=== PATIENT | male | born 1985 | race Caucasian/White ===

== ENCOUNTER 2020-04-08 09:18 | Inpatient (IN) | payer MEDICAID, SELFPAY ==
[2020-04-08] VITALS (27 sets, daily range): BP systolic 122–166; BP diastolic 54–109; PULSE 66–98; RESP 14–30; TEMP 36.3–37; O2SAT 94–100; BMI 41.0; BMI 40.6
--- NOTE | 2020-04-08 09:38 | RAD_ITS ---
STUDY: X-RAY CHEST REASON FOR EXAM: Male, 34 years old. Palpitations and SOB with exertion x 1.5 weeks -- weakness, feeling unsteady TECHNIQUE: Single AP portable view of the chest. COMPARISON: None. FINDINGS: EKG electrodes are seen. The lungs are clear and expanded. Scattered calcified granulomas. There is no demonstrated pleural abnormality. There is moderate cardiac enlargement. Normal mediastinum and ina. Normal visualized pulmonary arteries. Normal visualized aortic arch and descending thoracic aorta. Normal visualized thoracic spine. Normal visualized ribs, clavicles, and shoulders. Moderate sized hiatal hernia. RAD/Chest 1 View (Portable) IMPRESSION: Cardiomegaly. Hiatal hernia. Electronically Signed: Chase Jenkins, at 10:19 EDT , Service support ,
--- NOTE | 2020-04-08 09:39 | ED.DCSUM_ITS ---
History of Present Illness <Devante Brandon - Last Filed: 04/08/20 10:40> Informant: Patient Onset: Days - 10 days Activity at onset: Exertion, Light Activity, Rest Timing: Continuous Quality: Dyspnea on exertion Current Severity: Moderate Maximum Severity: Severe Worsened by: Exertion Relieved by: Rest Associated Symptoms: Negative for: Bloody Sputum, Chills, Clear sputum, Cough, Ear pain, Fever, Green sputum, Post-nasal drainage, Rhinorrhea, Sore throat, Sweats, White sputum, Yellow sputum Chest Pain: None Narrative: 34-year-old male history of DVT currently on Eliquis and bipolar disorder and sleep apnea presents to the emergency department complaining of dyspnea on exertion for the last 10 days. He has been under a lot of stress at work. He got sent home from work today because he was complaining of having palpitations and feeling short of breath. 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 No leg pain or swelling. He has not missed any days of his anticoagulation. He denies cough or fever. He denies chest pain or hemoptysis. He denies nausea vomiting or diarrhea. Denies abdominal pain or back pain PE Risk Factors: Prior DVT or PE. Negative for: Cancer, OCP + Smoking + > 35, Recent immobilization, Recent surgery, Recent travel Prior similar symptoms: No Recent Illness/Hospitalization: No <Nicho Patel - Last Filed: 04/08/20 11:08> Chief Complaint: Palpitations Past Medical History <Devante Brandon - Last Filed: 04/08/20 10:40> Prior records reviewed: Yes Past Medical History: - - DVT currently on Eliquis bipolar disorder sleep apnea Surgical History: tonsillectomy Lives: With Family Smoking Status: Never smoker Alcohol: None Drugs: None <Nicho Patel - Last Filed: 04/08/20 11:08> - Allergies and Home Meds Allergies/Adverse Reactions: Allergies cinnamon Allergy (Verified 04/08/20 09:20) Anaphylaxis Primary Care Physician: [facility] Doctor,Out of [NON-STAFF] - Review of Systems All systems negative except as indicated General: Denies: Chills, Fever, Sweats Eyes: Denies: Visual changes - bilaterally, Diplopia ENT: Denies: Rhinorrhea, Sore throat Cardiovascular: Reports: Palpitations. Denies: Chest pain Respiratory: Reports: Dyspnea, Dyspnea on exertion. Denies: Cough, Sputum, Orthopnea, Paroxysmal nocturnal dyspnea Gastrointestinal: Denies: Abdominal pain, Nausea, Vomiting, Diarrhea, Melena, Hematochezia Genitourinary: Denies: Dysuria, Hematuria, Frequency Musculoskeletal: Denies: Back pain, Extremity Pain Skin: Denies: Rash, Wounds Neurological: Denies: Headache, Weakness, Numbness <Nicho Patel - Last Filed: 04/08/20 11:08> Physical Exam Vital Signs/Narrative: Vital Signs Temp Pulse Resp BP Pulse Ox 04/08/20 09:34 87 14 150/66 H 100 04/08/20 09:33 97.3 F L 98 17 151/80 H 100 04/08/20 09:21 97.3 F L 98 17 151/80 H 100 <Devante Brandon - Last Filed: 04/08/20 10:40> Vital Signs/Narrative: Vital Signs Temp Pulse Resp BP Pulse Ox 04/08/20 09:34 87 14 150/66 H 100 04/08/20 09:33 97.3 F L 98 17 151/80 H 100 04/08/20 09:21 97.3 F L 98 17 151/80 H 100 Inital Vital Signs reviewed: Yes General: Well nourished, Well developed, No Acute Distress Head: Normocephalic, Atraumatic Eyes: Perrl, EOMI ENT: Moist mucous membranes, No rhinorrhea Neck: Supple, Nontender Cardiovascular: Regular rate, Regular rhythm, No murmurs Respiratory: No distress, CTA bilaterally, Chest nontender Abdomen: Soft, Nontender, Nondistended, Normal bowel sounds Back: Nontender, Normal Inspection Extremities: Nontender, No edema. Negative for: Tenderness, Edema, Calf Tenderness Skin: No rash, Pallor Neurological: Alert, Oriented x3, Cranial nerves II-XII grossly intact, Normal Strength, Normal Sensation Psychological: Normal affect, Normal Mood <Nicho Patel - Last Filed: 04/08/20 11:08> Diagnostic/Tx/Re-eval - Medical Decision Making I supervised the PA and have performed my own pertinent history and physical. Results and treatment plan were discussed. HPI: Patient complains of shortness of breath and palpitations. States that this is been present for 10 days and gradually worsening. He has a history of DVT and is on Eliquis. He denies any nosebleeds or injuries. He has not seen blood in his stools. No black tarry stools. PE: Vitals: Stable. Afebrile. General: Well-nourished and well-developed. Head: Normocephalic atraumatic. Neck: Supple, no lymphadenopathy. No JVD. Nontender. Cardiovascular: Regular rate and rhythm. No murmurs. Respiratory: No respiratory distress. Clear to auscultation bilaterally. Abdominal: Soft, nontender, nondistended, normal bowel sounds. No guarding, rebound, or peritoneal signs. Back: Nontender. Extremities: Nontender, no edema. Skin: Normal color, no rash. Neurologic: Alert and oriented ?3. Cranial nerves II through XII are intact. Normal strength and sensation. Psych: Normal affect. Emergency Department course: Patient's hemoglobin is 3. He was typed and crossed for 2 units of packed red blood cells. Treatment Plan: Patient will be admitted for transfusion and further evaluation and treatment. This note was generated with [employer] dictation software. It may contain incorrect words, spelling, and punctuation that were not noted in review of the chart prior to signing. <Devante Brandon - Last Filed: 04/08/20 10:40> Chest X-Ray - ED: 1 View, Read by ED Physician, Read by Radiologist, No Acute Disease - Rhythm Strip Rhythm Strip: Sinus Rhythm Rate: 90 Ectopy: None - EKG Initial EKG Interpretation: Sinus Rhythm, No Acute Injury Pattern Prior: No Prior - Medical Decision Making Patient's Hemoccult test was negative. At this time vital signs are stable. His heart rate is around 90 bpm and his blood pressures have been rate around 140/70 systolic. Hospitalist was contacted who agreed to admit the patient to the ICU. He is hemodynamically stable <Nicho Patel - Last Filed: 04/08/20 11:08> ED Disposition <Devante Brandon - Last Filed: 04/08/20 10:40> <Nicho Patel - Last Filed: 04/08/20 11:08> - Plan for ED Patient: Disposition: Acute Care [facility] Diagnosis: Acute anemia, Eliquis therapy, History of DVT (deep vein thrombosis) Referrals: [facility] Doctor,Out of [NON-STAFF] -
--- NOTE | 2020-04-08 09:39 | EKG12_ITS ---
Test Reason : CP Blood Pressure : / mmHG Vent. Rate : 067 BPM Atrial Rate : 067 BPM P-R Int : 152 ms QRS Dur : 086 ms QT Int : 404 ms P-R-T Axes : 028 009 044 degrees QTc Int : 426 ms Normal sinus rhythm Normal ECG When compared with ECG of 08-APR-2020 09:42, MANUAL COMPARISON REQUIRED, DATA IS UNCONFIRMED Confirmed by AURORA BOWLING, LISET ([id number]), editor index JACEY GILL ([id number]) on 04/12/2020 12:48:25 PM Referred By: JEMIMA Confirmed By:LISET SIMON MD
--- NOTE | 2020-04-08 09:42 | EKG12_ITS ---
Test Reason : PALP Blood Pressure : / mmHG Vent. Rate : 085 BPM Atrial Rate : 085 BPM P-R Int : 148 ms QRS Dur : 088 ms QT Int : 382 ms P-R-T Axes : 043 010 034 degrees QTc Int : 454 ms Normal sinus rhythm Normal ECG Confirmed by LISET SIMON MD ([id number]), offline editor MICHAEL SPARKS ([id number]) on 04/13/2020 9:34:57 AM Referred By: AP Confirmed By:LISET SIMON MD
[2020-04-08 10:02] LABS: Absolute Lymphocyte Count 1.54 X10^3/uL (0.83-4.51); Absolute Neutrophil Count 3.8 X10^3/uL (2.0-7.7); Basophil# 0.01 X10^3/uL; Basophil% 0.2 % (0-1); Eosinophils% 1.7 % (0-5); Hematocrit 12.7 % (40-54); Hemoglobin 3.2 g/dL (13.0-16.5); Lymphocyte # 1.54 X10^3/ul (4.0); Mean Corp Hgb Conc 25.2 g/dL (32-36); Mean Corpuscular Hgb 18.9 pg (27.0-32.0); Mean Corpuscular Volume 75.1 fL (80-94); Mean Platelet Vol. 11.1 fl (6.2-12.0); Monocyte# 0.48 X10^3/uL; Monocyte% 8.1 % (0-10); NRBC Flagged by Analyzer 0 % (0-5); Neutrophil # 3.76 X10^3/uL (2.7-7.7); Neutrophil % 63.5 % (47-70); POSITIVE COUNT YES; POSITIVE MORPHOLOGY YES; Platelet Count 245 K/mm3 (150-450); RBC Distribution Width CV 20.3 % (11.6-14.6); RBC Distribution Width SD 54.4 fl (35.1-43.9); Red Blood Count 1.69 M/mm3 (4.6-6.2); White Blood Count 5.9 K/mm3 (4.4-11.0)
[2020-04-08 10:11] LABS: Anion Gap 6 (5-15); BUN 22 mg/dL (7-18); BUN/Creat Ratio 13.8 RATIO (10-20); Calcium,Total 9.1 mg/dL (8.5-10.1); Chloride 112 mmol/L (98-107); EST Glomerular Filtration Rate 52 mL/min (>60); Est Glom Filt Rate - Afr Amer 63 mL/min (>60); Estimated Creatinine Clearance 68.63 ml/min; Glucose 125 mg/dL (74-106); Potassium 3.6 mmol/L (3.5-5.1); Sodium Level 143 mmol/L (136-145); Thyroid Stim Hormone (TSH) 1.47 uIU/mL (0.358-3.74)
[2020-04-08 10:53] LABS: Anisocytosis 2+; Hypochromasia 2+; Microcytosis 2+
--- NOTE | 2020-04-08 10:57 | HP.PCM_ITS ---
Problem List (1) Acute anemia Status: Acute (2) History of DVT (deep vein thrombosis) Status: Chronic (3) Bipolar disorder Status: Chronic (4) ADHD Status: Inactive (5) Morbid obesity Status: Chronic (6) Obstructive sleep apnea Status: Chronic History of Present Illness Date of Admission: 04/08/20 Chief Complaint: Dyspnea on exertion for 10 days The patient is a 34 year old M with history of chronic anemia, runs around 7-8 g% about 2 to 3 years ago but never transfused came to ED with complaint of shortness of breath, dyspnea on exertion for 10 days along with feeling unsteady, sometimes dizzy and weakness. Today while at work, he felt dizzy and almost passed out therefore sent to ER. In ED, hemoglobin 3.2 g%. Rectal exam by ER physician was negative and stool for occult blood negative. Patient is on Eliquis, last dose on 04/07 started about 6 months ago for right lower leg DVT. Patient also has about 4 weeks of right medial knee pain started suddenly like a click and it hurts mainly on walking. Currently no pain. 2 units of PRBC transfusion ordered by ER physician. EKG shows normal sinus rhythm with no findings of LVH. Chest x-ray reported as moderate cardiomegaly and hiatus hernia Past Medical History Past Medical History (Chronic Problems): Chronic Problems History of DVT (deep vein thrombosis) (Chronic) Bipolar disorder (Chronic) Morbid obesity (Chronic) Obstructive sleep apnea (Chronic) Allergies cinnamon Allergy (Verified 04/08/20 09:20) Anaphylaxis Home Medications: Ambulatory Orders Medication Instructions Recorded Apixaban [Eliquis] 5 mg PO BID 04/08/20 Diphenhydramine HCl [Diphenhist] 50 mg PO QHS 04/08/20 Fluoxetine HCl [Prozac] 40 mg PO DAILY 04/08/20 Gabapentin [Neurontin] 300 mg PO TID 04/08/20 Oxcarbazepine [Trileptal] 300 mg PO DAILY 04/08/20 Oxcarbazepine [Trileptal] 900 mg PO QHS 04/08/20 Quetiapine Fumarate [Seroquel] 400 mg PO DAILY 04/08/20 Surgical History: tonsillectomy Lives: With Family Smoking Status: Never smoker Alcohol: None Drugs: None - *Family History Paternal History Items: Heart Disease - [place] in fourth or fifth decade Maternal History Items: Heart Disease Review of Systems Constitutional: Denies: Chills, Fever, Weight Change HEENT: Denies: Head Aches, Sinus Congestion, Sinus Drainage Cardiovascular: Reports: Chest Pressure - Chest pressure mainly on walking, midsternal in location with radiation to both clavicles. no chest pain at rest, Heaviness, Light Headedness, Palpitations - On walking, - - Near syncope, dizziness. Did not pass out. Respiratory: Denies: Cough, Shortness of breath at rest, Sputum production Gastrointestinal: Denies: Abdominal Pain, Constipation, Diarrhea, Hematemesis, Hematochezia, Nausea, Melena, Vomiting Genitourinary: Denies: Dysuria Musculoskeletal: Reports: Joint Pain - Right medial side knee pain. Denies: Joint Tenderness Skin: Denies: Rash, Wounds Neurological: Denies: Numbness, Tingling, Focal weakness Psychiatric: Reports: Anxiety, Depression. Denies: Homicidal Ideations, Garza icidal Ideations Hematologic/ Lymphatic: Denies: Easy Bruising, Easy Bleeding VTE Information - Inpt Only VTE Present on Admission: No VTE Mechan Device Prophylaxis: SCD's VTE Pharm Prophylaxis ordered?: No Reason prophylaxis not ordered:: Medical Contraindication - Severe anemia Patient Problems: Active and Suspected Problems Acute anemia (Acute) - Physical Exam Vitals/I&O's: Vital Signs Temp Pulse Resp BP Pulse Ox 98.4 F 80 18 147/73 H 99 04/08/20 10:26 04/08/20 10:26 04/08/20 10:26 04/08/20 10:26 04/08/20 10:26 Oxygen Delivery Method Room Air Weight: 294 lb 5.074 oz Body Mass Index (BMI) 41.0 General: Alert, Oriented x3, Cooperative HEENT: Atraumatic, PERRLA, EOMI, Normocephalic Oral: No Gingival or Mucosal Lesions/ Ulcerations, Dry Mucosa Neck: Supple, No JVD, Negative Carotid Bruits Lungs: Clear to auscultation, No rhonchi, No wheeze, No rales, Diminished - Air entry diminished in bilateral lung bases Cardiovascular: Regular rate, Regular Rhythm, Normal S1, Normal S2, No murmurs Abdomen: Bowel Sounds Present, Soft, Non Tender, Non-Distended, - - : No dysuria or other urinary tract symptoms. No suprapubic or renal angle tenderness. Urine output adequate. Extremities: No edema, Capillary Refill Less than 3 Seconds Skin: No rashes, No breakdown Musculoskeletal: Tenderness - Mild tenderness and medial angle of right knee. Neurological: Cranial nerves II-XII grossly intact, Deep Tendon Reflexes 2+/4 and Symmetrical, Neuro grossly intact, Motor Exam 5/5 strength throughout Psych/Mental Status: Normal Affect, Appropriate Microbiology Past 72 Hours 04/08/20 10:19 Stool Stool Occult Blood (JIMI) - Final Laboratory Results 04/08/20 09:36: WBC 5.9, RBC 1.69 L, Hgb 3.2 L*, Hct 12.7 L, MCV 75.1 L, MCH 18.9 L, MCHC 25.2 L, RDW Std Deviation 54.4 H, RDW Coeff of Michael 20.3 H, Plt Count 245, MPV 11.1, Immature Gran % (Auto) 0.500, Neut % (Auto) 63.5, Lymph % (Auto) 26.0, Kleberg % (Auto) 8.1, Eos % (Auto) 1.7, Baso % (Auto) 0.2, Absolute Neuts (auto) 3.8, Absolute Lymphs (auto) 1.54, Nucleated RBC % 0, Hypochromasia 2+, Anisocytosis 2+, Microcytosis 2+ 04/08/20 09:36: Sodium 143, Potassium 3.6, Chloride 112 H, Carbon Dioxide 25.0, Anion Gap 6, BUN 22 H, Creatinine 1.60 H, Estim Creat Clear Calc 68.63, Est GFR (MDRD) Af Amer 63, Est GFR (MDRD) Non-Af 52 L, BUN/Creatinine Ratio 13.8, Gluco se 125 H, Calcium 9.1, Troponin I < 0.015, TSH 1.47 04/08/20 10:20: Blood Type B POSITIVE, Antibody Screen NEGATIVE, Crossmatch See Detail Assessment/Plan All Active Problems Acute anemia (Acute) The patient is a 34 year old M with history of chronic anemia, runs around 7-8 g% about 2 to 3 years ago is admitted with dyspnea on exertion, dizziness and near syncope generalized weakness with hemoglobin 3.2 in the ICU. 1. Acute on chronic symptomatic microcytic hypochromic anemia most likely from Eliquis: Patient is being admitted in ICU for hemoglobin of 3.2. 2 units of PRBC transfusion today. Posttransfusion H&H. Watch urine output, strict intake and output. Discussed with surgeon Dr. Lucas. As the patient does not have active GI bleed by history and stool for occult blood negative, will need outpatient EGD. Eliquis discontinued. 2. Abnormal kidney function most likely acute kidney injury from severe anemia, prerenal type: PRBC transfusion and IV fluid. Monitor kidney function electrolytes. 3. Right knee pain on medial side: Most likely ligamentous strain happened a bout 1 month ago. On exam, no bony or joint line tenderness and does not seem bony injury. Patient agreed for outpatient follow-up with orthopedics, might need arthroscopy. PT evaluation. 4. Morbid obesity with obstructive sleep apnea: CPAP during naps and at night. 5. Psychiatric history: Bipolar disorder with ADHD during teenage: His psych medications Seroquel, Trileptal and fluoxetine resumed. VTE prophylaxis: Moderate risk secondary to obesity. Pharmacological prophylaxis contraindicated. Bilateral SCDs Inpatient E&M: 31671 Init Hosp L3
[2020-04-08 12:40] LABS: Magnesium 1.8 mg/dL (1.6-2.6)
[2020-04-08] MEDS: Gabapentin 300 MG Capsule PO ×2 (15:40→20:20)
[2020-04-08] MEDS: 0.9% Normal Saline 1,000 ML 50 ML IV (17:23)
[2020-04-08] MEDS: 0.9% Saline Lock 10 ML Syringe IV (17:24)
[2020-04-08] MEDS: Morphine 2 MG/ML Syringe IV (17:24)
[2020-04-08] MEDS: oxyCODONE 5 MG Tablet PO (18:18)
[2020-04-08 18:37] LABS: Hematocrit 18.3 % (40-54)
[2020-04-08 18:38] LABS: Hemoglobin 4.9 g/dL (13.0-16.5)
[2020-04-08] MEDS: QUEtiapine 100 MG Tablet 200 MG PO (20:20)
[2020-04-08] MEDS: OXcarbazepine 300 MG Tablet 900 MG PO (20:55)
[2020-04-08] MEDS: FLUoxetine 20 MG Capsule 40 MG PO (22:07)
[2020-04-08] MEDS: DiphenhydrAMINE 25 MG Capsule 50 MG PO (22:11)
[2020-04-09] VITALS (22 sets, daily range): BP systolic 125–148; BP diastolic 68–109; PULSE 65–85; RESP 14–31; TEMP 36.2–37; O2SAT 93–100
[2020-04-09 05:03] LABS: Absolute Lymphocyte Count 1.09 X10^3/uL (0.83-4.51); Absolute Neutrophil Count 4.2 X10^3/uL (2.0-7.7); Basophil# 0.04 X10^3/uL; Basophil% 0.7 % (0-1); Eosinophil# 0.12 X10^3/uL; Hematocrit 19.4 % (40-54); Lymphocyte # 1.09 X10^3/ul (4.0); Lymphocyte % 18.1 % (19-41); Mean Corp Hgb Conc 28.4 g/dL (32-36); Mean Corpuscular Hgb 22.7 pg (27.0-32.0); Mean Corpuscular Volume 80.2 fL (80-94); Mean Platelet Vol. 11.3 fl (6.2-12.0); Monocyte# 0.55 X10^3/uL; Monocyte% 9.1 % (0-10); NRBC Flagged by Analyzer 0 % (0-5); Neutrophil # 4.21 X10^3/uL (2.7-7.7); Neutrophil % 69.8 % (47-70); POSITIVE COUNT YES; Platelet Count 202 K/mm3 (150-450); RBC Distribution Width CV 19.3 % (11.6-14.6); RBC Distribution Width SD 56.2 fl (35.1-43.9); Red Blood Count 2.42 M/mm3 (4.6-6.2)
[2020-04-09 05:08] LABS: Differential Indicated SCAN CRITERIA MET; Hemoglobin 5.5 g/dL (13.0-16.5)
[2020-04-09 05:26] LABS: Anion Gap 4 (5-15); BUN 15 mg/dL (7-18); BUN/Creat Ratio 14.9 RATIO (10-20); Calcium,Total 7.8 mg/dL (8.5-10.1); Chloride 113 mmol/L (98-107); Creatinine, Serum 1.01 mg/dL (0.70-1.30); EST Glomerular Filtration Rate 89 mL/min (>60); Est Glom Filt Rate - Afr Amer 108 mL/min (>60); Estimated Creatinine Clearance 108.73 ml/min; Glucose 91 mg/dL (74-106); Magnesium 2.1 mg/dL (1.6-2.6); Sodium Level 142 mmol/L (136-145); Thyroid Stim Hormone (TSH) 1.74 uIU/mL (0.358-3.74)
[2020-04-09 06:21] LABS: Differential Comment SCANNED; Hypochromasia 3+; Microcytosis 3+
[2020-04-09] MEDS: Gabapentin 300 MG Capsule PO ×3 (06:21→21:24)
[2020-04-09 06:22] LABS: Schistocytes 1+
[2020-04-09] MEDS: oxyCODONE 5 MG Tablet PO ×3 (06:23→18:52)
[2020-04-09 07:25] LABS: AST(SGOT) 26 U/L (15-37); Alanine Aminotransfer ALT/SGPT 31 U/L (16-61); Albumin, Serum 3.2 g/dL (3.2-5.0); Alkaline Phosphatase 89 U/L (45-117); Bilirubin, Direct 0.17 mg/dL (0.00-0.30); Globulin 3.2 g/dL (2.2-4.2); Protein, Total 6.4 g/dL (6.4-8.2)
--- NOTE | 2020-04-09 07:37 | ECHOCS_ITS ---
Reason For Study: Chest Pain Procedure This was a 2D Doppler, Color Flow transthoracic echocardiogram. Contrast injection was performed. Exam performed portable in ICU/CCU. Left Ventricle Mildly dilated left ventricle. The estimated ejection fraction is 50-55 %. Left ventricular systolic function is lower limits of normal. Stage 2 diastolic dysfunction. Right Ventricle Normal right ventricle. Normal systolic function. Atria The left atrium is mildly enlarged. Normal right atrium. Mitral Valve Trivial mitral valve insufficiency. Tricuspid Valve Mild tricuspid valve insufficiency. Right ventricular systolic pressure estimated to be 40mm mmHg. Mild pulmonary hypertension. Aortic Valve Aortic sclerosis, no stenosis. Pulmonic Valve No pulmonic valve insufficiency. Great Vessels Inferior vena cava collapse with respiration. The inferior vena cava is dilated. Pericardium/Pleural No pericardial effusion. Medication Diluted definity 2ml given slow IV push to enhance endocardial definition. MMode/2D Measurements & Calculations LVIDd: 6.0 cm IVSd: 1.3 cm Ao root diam: 2.9 cm LVIDs: 4.0 cm LVPWd: 1.1 cm RVDd: 5.0 cm FS: 32.9 % LAV(MOD-bp): 99.4 ml LVAd ap4: 46.1 cm2 SV(MOD-sp4): 102.9 ml LAV(MOD-bp) Indexed: 40.0 ml/m2 EDV(MOD-sp4): 200.2 ml LAV(MOD-sp2): 76.1 ml EDV(sp4-el): 213.4 ml LAV(MOD-sp4): 101.5 ml LVAs ap4: 29.6 cm2 ESV(MOD-sp4): 97.3 ml ESV(sp4-el): 100.9 ml EF(MOD-sp4): 51.4 % EF(sp4-el): 52.7 % SV(sp4-el): 112.5 ml LA A4 area: 30.1 cm2 LA dimension(2D): 4.8 cm RA A4 area: 16.8 cm2 Doppler Measurements & Calculations MV E max jorge: 114.7 cm/sec Lat Peak E' Jorge: 6.3 cm/sec Med Peak E' Jorge: 6.3 cm/sec MV A max jorge: 63.0 cm/sec E/E' lat: 18.1 E/E' med: 18.3 MV E/A: 1.8 Ao V2 max: 183.4 cm/sec LV V1 max: 154.6 cm/sec PA V2 max: 124.2 cm/sec Ao max P.5 mmHg LV V1 max P.6 mmHg Ao V2 mean: 135.8 cm/sec Ao mean P.9 mmHg Ao V2 VTI: 35.4 cm TR max jorge: 299.1 cm/sec TR max P.8 mmHg Interpretation Summary Mildly dilated left ventricle. Left ventricular systolic function is lower limits of normal. The left atrium is mildly enlarged. Mild tricuspid valve insufficiency. Right ventricular systolic pressure estimated to be 40mm mmHg. Mild pulmonary hypertension. Inferior vena cava collapse with respiration. The inferior vena cava is dilated The estimated ejection fraction is 50-55 %. Ordering Physician: Wayne Larkin Performed By: Josi Ramesh, SOPHIA, RVT
--- NOTE | 2020-04-09 07:39 | PCM.PN.HOSP ---
Patient Problems: Active and Suspected Problems Acute anemia (Acute) Reason for Visit: Follow-up for severe anemia and chest pressure Objective: Seen and examined. Patient had chest pressure last afternoon, 02/21 location, central feels like a pressure without radiation. No exacerbating or relieving factor. Serial troponins negative. EKG normal sinus rhythm at [address]-T changes suggestive of ischemia. Patient blood pressure is elevated systolic in the 150s. Respiratory rate 27-31. On room air Physical exam General: Alert, Oriented x3, Cooperative HEENT: Atraumatic, PERRLA, EOMI, Normocephalic Oral: No Gingival or Mucosal Lesions/ Ulcerations Neck: Supple, No JVD, Negative Carotid Bruits Lungs: Air entry diminished in bilateral lung bases. Right basal fine rales present. Tachypnea but no hypoxia. Cardiovascular: Regular rate, Regular Rhythm, Normal S1, Normal S2, No murmurs Abdomen: Bowel Sounds Present, Soft, Non Tender, Non-Distended : No renal angle tenderness. No suprapubic tenderness. Extremities: No edema, Capillary Refill Less than 3 Seconds Skin: No rashes, No breakdown Musculoskeletal: No Tenderness to Palpation of Joints or Extremities Neurological: Cranial nerves II-XII grossly intact, Deep Tendon Reflexes 2+/4 and Symmetrical, Neuro grossly intact Psych/Mental Status: Normal Affect, Appropriate. Vitals/I&O's: Vital Signs Temp Pulse Resp BP Pulse Ox 97.2 F L 66 27 H 143/82 H 99 04/09/20 06:30 04/09/20 07:00 04/09/20 07:00 04/09/20 07:00 04/09/20 07:00 Oxygen Delivery Method Room Air Weight: 293 lb 10.491 oz Body Mass Index (BMI) 40.6 Intake and Output for Last 24 Hours 04/07/20 04/08/20 04/09/20 23:59 23:59 23:59 Intake Total 1910 / 1910 655.83 / 655.83 Output Total 1150 / 1150 600 / 600 Balance 760 / 760 55.83 / 55.83 Microbiology Past 72 Hours 04/08/20 10:19 Stool Stool Occult Blood (JIMI) - Final Laboratory Results 04/08/20 09:36: WBC 5.9, RBC 1.69 L, Hgb 3.2 L*, Hct 12.7 L, MCV 75.1 L, MCH 18.9 L, MCHC 25.2 L, RDW Std Deviation 54.4 H, RDW Coeff of Michael 20.3 H, Plt Count 245, MPV 11.1, Immature Gran % (Auto) 0.500, Neut % (Auto) 63.5, Lymph % (Auto) 26.0, Borden % (Auto) 8.1, Eos % (Auto) 1.7, Baso % (Auto) 0.2, Absolute Neuts (auto) 3.8, Absolute Lymphs (auto) 1.54, Nucleated RBC % 0, Hypochromasia 2+, Anisocytosis 2+, Microcytosis 2+ 04/08/20 09:36: Sodium 143, Potassium 3.6, Chloride 112 H, Carbon Dioxide 25.0, Anion Gap 6, BUN 22 H, Creatinine 1.60 H, Estim Creat Clear Calc 68.63, Est GFR (MDRD) Af Amer 63, Est GFR (MDRD) Non-Af 52 L, BUN/Creatinine Ratio 13.8, Glucose 125 H, Calcium 9.1, Troponin I < 0.015, TSH 1.47 04/08/20 09:36: Magnesium 1.8 04/08/20 10:15: Crossmatch See Detail 04/08/20 10:15: Crossmatch See Detail 04/08/20 10:20: Blood Type B POSITIVE, Antibody Screen NEGATIVE, Crossmatch See Detail 04/08/20 13:10: Troponin I < 0.015 04/08/20 15:50: Troponin I < 0.015 04/08/20 18:21: Hgb 4.9 L*, Hct 18.3 L 04/09/20 04:50: WBC 6.0, RBC 2.42 L, Hgb 5.5 L*, Hct 19.4 L, MCV 80.2 D, MCH 22.7 L, MCHC 28.4 L D, RDW Std Deviation 56.2 H, RDW Coeff of Michael 19.3 H, Plt Count 202, MPV 11.3, Immature Gran % (Auto) 0.300, Neut % (Auto) 69.8, Lymph % (Auto) 18.1 L, Borden % (Auto) 9.1, Eos % (Auto) 2.0, Baso % (Auto) 0.7, Absolute Neuts (auto) 4.2, Absolute Lymphs (auto) 1.09, Nucleated RBC % 0, Differential Comment SCANNED, Diff Path Review May foll, Hypochromasia 3+, Microcytosis 3+, Schistocytes 1+ 04/09/20 04:50: Sodium 142, Potassium 4.0, Chloride 113 H, Carbon Dioxide 25.0, Anion Gap 4 L, BUN 15, Creatinine 1.01, Estim Creat Clear Calc 108.73, Est GFR (MDRD) Af Amer 108, Est GFR (MDRD) Non-Af 89, BUN/Creatinine Ratio 14.9, Glucose 91, Calcium 7.8 L, Magnesium 2.1, TSH 1.74 04/09/20 04:50: Total Bilirubin 0.40, Direct Bilirubin 0.17, AST 26, ALT 31, Alkaline Phosphatase 89, Total Protein 6.4, Albumin 3.2, Globulin 3.2 Current Medications Acetaminophen (Tylenol) 650 mg PO Q6H PRN PRN PRN Reason: Pain Score 1-10/Temp > 100.7 F Al Hydroxide/Mg Hydroxide (Mylanta Ii) 30 ml PO Q6H PRN PRN PRN Reason: Gastric Burning Diphenhydramine HCl (Benadryl) 50 mg PO QHS PRN PRN PRN Reason: SLEEP Last Admin: 04/08/20 22:11 Dose: 50 mg Documented by: Fluoxetine HCl (Prozac) 40 mg PO DAILY [facility] Last Admin: 04/08/20 22:07 Dose: 40 mg Documented by: Furosemide (Lasix) 40 mg IV X1 ONE Stop: 04/09/20 07:38 Gabapentin (Neurontin) 300 mg PO TID [facility] Last Admin: 04/09/20 06:21 Dose: 300 mg Documented by: Gabapentin (Neurontin) 300 mg PO BID PRN PRN PRN Reason: mood Sodium Chloride () 500 mls @ 15 mls/hr IV PRN PRN PRN Reason: Blood Transfusion Morphine Sulfate () 2 mg IV Q3H PRN PRN PRN Reason: Pain Score 6-10/10 Last Admin: 04/08/20 17:24 Dose: 2 mg Documented by: Nitroglycerin (Nitrostat) 0.4 mg SUBLINGUAL Q5M PRN PRN Reason: CARDIAC/CHEST PAIN Ondansetron HCl (Zofran) 4 mg IV Q8H PRN PRN PRN Reason: NAUSEA/VOMITING Oxcarbazepine (Trileptal) 300 mg PO DAILY [facility] Oxcarbazepine (Trileptal) 900 mg PO QHS [facility] Last Admin: 04/08/20 20:55 Dose: 900 mg Documented by: Pantoprazole Sodium (Protonix) 40 mg PO DAILY [facility] Prochlorperazine Edisylate (Compazine Iv) 5 mg IV Q4H PRN PRN PRN Reason: Breakthrough Nausea/Vomiting Quetiapine Fumarate (Seroquel) 200 mg PO BID [facility] Last Admin: 04/08/20 20:20 Dose: 200 mg Documented by: Senna/Docusate Sodium (Senokot-S, Gracy-Colace) 2 tablet PO BID PRN PRN Reason: Constipation Sodium Chloride () 10 - 40 ml IV UD PRN PRN Reason: SALINE FLUSH Last Admin: 04/08/20 17:24 Dose: 20 ml Documented by: STROKE Vital Signs/Narrative: Vital Signs Temp Pulse Resp BP BP Pulse Ox 04/09/20 07:00 66 27 H 143/82 H 99 04/09/20 06:30 97.2 F L 73 17 141/97 H 97 04/09/20 06:15 97.1 F L 73 26 H 129/80 H 93 04/09/20 06:00 74 31 H 93 04/09/20 05:00 80 29 H 125/74 H 99 04/09/20 04:00 98.4 F 72 25 H 127/72 H 97 Medical Necessity - Tobacco Use Smoking Status: Current every day smoker Tobacco Use: Cigarettes Assessment/Plan All Active Problems Acute anemia (Acute) The patient is a 34 year old M with history of chronic anemia, runs around 7-8 g% about 2 to 3 years ago is admitted with dyspnea on exertion, dizziness and near syncope generalized weakness with hemoglobin 3.2 in the ICU. 1. Acute on chronic symptomatic microcytic hypochromic anemia most likely from Eliquis: Patient is being admitted in ICU for hemoglobin of 3.2. 2 units of PRBC transfusion today. Posttransfusion H&H. Watch urine output, strict intake and output. Discussed with surgeon Dr. Lucas. As the patient does not have active GI bleed by history and stool for occult blood negative, will need outpatient EGD. Eliquis discontinued. 04/09: Patient had 3 units of PRBC transfusion. 1 more unit is running. Last H&H 5.12/01. Recheck hemoglobin after fourth unit. Check electrolytes with transfusion. TSH normal. Discussed with computer trainer. 2. Atypical chest pressure possible due to fluid congesation: Lasix 40 mg IV 1 dose. Chest x-ray portable ordered. 2D echo ordered. Admitting chest x-ray showed cardiomegaly. Fasting profile ordered 2. Abnormal kidney function most likely acute kidney injury from severe anemia, prerenal type: Kidney dysfunction since KRIS, resolved with PRBC transfusion. BUN/creatinine 15/1.0. Monitor kidney function electrolytes. 3. Right knee pain on medial side: Most likely ligamentous strain happened about 1 month ago. On exam, no bony or joint line tenderness and does not seem bony injury. Patient agreed for outpatient follow-up with orthopedics, might need arthroscopy. PT evaluation. 4. Morbid obesity with obstructive sleep apnea: CPAP during naps and at night. 5. Psychiatric history: Bipolar disorder with ADHD during teenage: His psych medications Seroquel, Trileptal and fluoxetine resumed. VTE prophylaxis: Moderate risk secondary to obesity. Pharmacological prophylaxis contraindicated. Bilateral SCDs Inpatient E&M: 85582 [facility] Hosp L3
--- NOTE | 2020-04-09 08:25 | RAD_ITS ---
STUDY: X-RAY CHEST REASON FOR EXAM: Male, 34 years old. Chest pressure, tachypnea, anemia TECHNIQUE: COMPARISON: None. FINDINGS: Mild hypoventilatory changes in the right lung base. No new infiltrate is seen. Residuals of old granulomatous disease. There is no demonstrated pleural abnormality. The cardiac silhouette remains enlarged. Normal mediastinum and ina. Normal visualized pulmonary arteries. Normal visualized aortic arch and descending thoracic aorta. Normal visualized thoracic spine. Normal visualized ribs, clavicles, and shoulders. There again is hiatal hernia. RAD/Chest 1 View (Portable) IMPRESSION: Enlargement of the cardiac silhouette. No active pulmonary disease. Electronically Signed: Fermin Hidalgo MD at 8:43 EDT Tel , Service support ,
[2020-04-09 08:42] LABS: Cholesterol 107 mg/dL (200); High Density Lipoprotein 22 mg/dL; Triglycerides 79 mg/dL; Very Low Density Lipoprotein 16 mg/dL (5-40)
[2020-04-09] MEDS: 0.9% Saline Lock 10 ML Syringe IV (08:42)
[2020-04-09] MEDS: Furosemide 40 MG/4 ML Vial IV (08:42)
--- NOTE | 2020-04-09 08:53 | NURSING ---
Report called to Dusty LANGFORD RN [id number]
[2020-04-09] MEDS: FLUoxetine 20 MG Capsule 40 MG PO (11:52)
[2020-04-09] MEDS: QUEtiapine 100 MG Tablet 200 MG PO ×2 (11:52→21:24)
[2020-04-09] MEDS: OXcarbazepine 300 MG Tablet PO (11:54)
[2020-04-09] MEDS: Pantoprazole Sodium 40 MG Tablet PO (11:57)
[2020-04-09] MEDS: Ferrous Sulfate 325 MG Tablet PO (12:31)
--- NOTE | 2020-04-09 14:10 | CASEMGMT ---
RN CM RADIOGRAPHER TECHNOLOGIST CM to room to meet with patient for initial transition planning/care coordination assessment. RN MATT introduced self and role at [facility]. Pt voices understanding and consents to assessment at this time. Pt sitting up in bed in no distress at this time. Pt is A/O at this time and answers all questions appropriately. Care providers, pharmacy, and demographics verified/updated at this time. PCP: Dr Barbara Loredo Preferred Pharmacy: [facility] Insurance: [employer] Prescription Benefit: Yes Living Will/HPOA: Pt does not currently have LW/HCPOA and declines info at this time. LNOK: , Kelly Living Arrangements: Lives w/his and 4 children in 2-story home w/2 steps to enter. Independent Transportation: Pt states drives self and states no transportation concerns at this time. DME: States has the following DME: CPAP Pt states no need for further DME at this time. HHC/SNF: No history of either and no needs identified. Pt plans to f/u with Orthopedic doctor for knee pain. State does not want any OP therapy until he sees the doctor. Pt wishes to return home and states has no concerns with going home at time of discharge. CM to follow for any discharge planning/needs. Pt voices no concerns/needs at this time. Advised pt to ask for CM if any questions/concerns/needs arise. Voices understanding. PLAN: Home Eron GREEN RN, CM
[2020-04-09 15:51] LABS: Hematocrit 24.3 % (40-54); Hemoglobin 7.4 g/dL (13.0-16.5)
[2020-04-09] MEDS: OXcarbazepine 300 MG Tablet 900 MG PO (21:27)
[2020-04-10] VITALS (8 sets, daily range): BP systolic 109–144; BP diastolic 57–70; PULSE 65–93; RESP 16–20; TEMP 36.3–36.9; O2SAT 97–99
[2020-04-10] MEDS: Ondansetron 4 MG/2 ML Vial IV (01:17)
[2020-04-10] MEDS: Morphine 2 MG/ML Syringe IV ×2 (01:17→04:18)
[2020-04-10] MEDS: 0.9% Saline Lock 10 ML Syringe IV ×4 (01:21→10:23)
[2020-04-10] MEDS: proCHLORPERazine 10 MG/2 ML Vial 5 MG IV (04:14)
[2020-04-10] MEDS: Gabapentin 300 MG Capsule PO (05:26)
[2020-04-10 06:07] LABS: Absolute Lymphocyte Count 0.58 X10^3/uL (0.83-4.51); Absolute Neutrophil Count 5.3 X10^3/uL (2.0-7.7); Basophil# 0.02 X10^3/uL; Basophil% 0.3 % (0-1); Eosinophil# 0.05 X10^3/uL; Eosinophils% 0.8 % (0-5); Hematocrit 25.7 % (40-54); Hemoglobin 7.4 g/dL (13.0-16.5); Lymphocyte # 0.58 X10^3/ul (4.0); Lymphocyte % 8.9 % (19-41); Mean Corp Hgb Conc 28.8 g/dL (32-36); Mean Corpuscular Hgb 24.3 pg (27.0-32.0); Mean Corpuscular Volume 84.3 fL (80-94); Mean Platelet Vol. 11.1 fl (6.2-12.0); Monocyte# 0.53 X10^3/uL; Monocyte% 8.1 % (0-10); NRBC Flagged by Analyzer 0 % (0-5); POSITIVE DIFFERENTIAL YES; Platelet Count 216 K/mm3 (150-450); RBC Distribution Width CV 18.3 % (11.6-14.6); RBC Distribution Width SD 55.3 fl (35.1-43.9); Red Blood Count 3.05 M/mm3 (4.6-6.2); White Blood Count 6.5 K/mm3 (4.4-11.0)
[2020-04-10 06:09] LABS: Differential Indicated SCAN CRITERIA MET
[2020-04-10 06:30] LABS: Differential Comment SCANNED; Hypochromasia RARE
[2020-04-10 06:44] LABS: Anion Gap 3 (5-15); BUN 14 mg/dL (7-18); BUN/Creat Ratio 12.7 RATIO (10-20); Calcium,Total 8.1 mg/dL (8.5-10.1); Chloride 112 mmol/L (98-107); EST Glomerular Filtration Rate 81 mL/min (>60); Est Glom Filt Rate - Afr Amer 98 mL/min (>60); Estimated Creatinine Clearance 99.83 ml/min; Glucose 122 mg/dL (74-106); Potassium 4.4 mmol/L (3.5-5.1); Sodium Level 140 mmol/L (136-145)
[2020-04-10] MEDS: Sodium Ferric Gluconat 250 MG in 0.9% Normal Saline 250 ML 135 MG IV (10:12)
[2020-04-10] MEDS: FLUoxetine 20 MG Capsule 40 MG PO (10:14)
[2020-04-10] MEDS: QUEtiapine 100 MG Tablet 200 MG PO (10:15)
[2020-04-10] MEDS: Ferrous Sulfate 325 MG Tablet PO (10:15)
[2020-04-10] MEDS: OXcarbazepine 300 MG Tablet PO (10:16)
[2020-04-10] MEDS: Acetaminophen 325 MG Tablet 650 MG PO (10:20)
[2020-04-10] MEDS: Pantoprazole Sodium 40 MG Tablet PO (10:20)
--- NOTE | 2020-04-10 10:22 | PCM.DC ---
- Discharge Diagnoses Current Active Problems: Current Active and Chronic Problems Acute anemia (Acute) History of DVT (deep vein thrombosis) (Chronic) Bipolar disorder (Chronic) Morbid obesity (Chronic) Obstructive sleep apnea (Chronic) You will use the following diet at home:: Regular Discharge Activity: Return to Normal Activity Allergies/Adverse Reactions: Allergies cinnamon Allergy (Verified 04/08/20 09:20) Anaphylaxis Medications to take at Discharge Diphenhydramine HCl [Diphenhist] 50 mg PO QHS 04/08/20 Fluoxetine HCl [Prozac] 40 mg PO DAILY 04/08/20 Gabapentin 300 mg PO BID PRN 04/08/20 Gabapentin [Neurontin] 300 mg PO DAILY 04/08/20 Oxcarbazepine [Trileptal] 300 mg PO DAILY 04/08/20 Oxcarbazepine [Trileptal] 900 mg PO QHS 04/08/20 Quetiapine Fumarate [Seroquel XR] 400 mg PO QHS 04/08/20 Ferrous Sulfate 325 mg PO DAILY@1200 #90 tab 04/10/20 Pantoprazole Sodium [Protonix] 40 mg PO DAILY #30 tab 04/10/20 The following prescriptions were given: Ferrous Sulfate 325 mg PO DAILY@1200 #90 tab Transmission Status: Pending to [facility] Pantoprazole Sodium [Protonix] 40 mg PO DAILY #30 tab Transmission Status: Pending to [facility] Primary Care Physician: [facility] Doctor,Out of [NON-STAFF] - Test Results: Test results from this visit will be discussed in further detail at your follow-up appointment, if applicable. Please Follow Up With: Fernandez Lucas MD When: in 2 weeks for EGD for anemia Please Follow Up With: Janusz Adame MD When: right ligament injury, medial meniscus in 2 weeks
--- NOTE | 2020-04-10 10:24 | DS.PCM_ITS ---
Discharge Date and Diagnosis - Problem List Patient Problems: Active and Suspected Problems Acute anemia (Acute) Date of Admission: 04/08/20 Date of Discharge: 04/10/20 - Primary Discharge Diagnosis Acute Problems: Active Problems Acute anemia (Acute) - Secondary Discharge Diagnosis Chronic Problems: Chronic Problems History of DVT (deep vein thrombosis) (Chronic) Bipolar disorder (Chronic) Morbid obesity (Chronic) Obstructive sleep apnea (Chronic) Hospital Course and Treatment Summary of Care Provided: [] The patient is a 34 year old M with history of chronic anemia, runs around 7-8 g% about 2 to 3 years ago is admitted with dyspnea on exertion, dizziness and near syncope generalized weakness with hemoglobin 3.2 in the ICU. 1. Acute on chronic symptomatic microcytic hypochromic anemia most likely from Eliquis: Patient is being admitted in ICU for hemoglobin of 3.2. The patient was overall transfused 5 units of PRBC and the last H&H 7.4/25.7. Patient was transferred to PCU and hemoglobin for last 2 days are stable. TSH normal. The case was discussed with battery filler and patient was admitted in ICU. Patient was advised to follow with Dr. Lucas for outpatient EGD. Discharged on ferrous sulfate and Protonix. 2. Atypical chest pressure possible due to fluid congesation: Lasix 40 mg IV 1 dose. Admitting chest x-ray showed cardiomegaly. Chest x-ray did not show fluid overload. Fasting profile shows HDL 22 otherwise normal. 2D echo was done as patient was severely anemic and cardiomegaly and reported mildly dilated LV and mild pulmonary hypertension with a stage II diastolic dysfunction suggestive of chronic heart failure with preserved EF?diastolic dysfunction. Therefore, low- dose metoprolol 12.5 mg p.o. twice daily and lisinopril 2.5 mg daily and lisinopril ordered with holding parameters and sent to the patient's pharmacy. Interpretation Summary Mildly dilated left ventricle. Left ventricular systolic function is lower limits of normal. The left atrium is mildly enlarged. Mild tricuspid valve insufficiency. Right ventricular systolic pressure estimated to be 40mm mmHg. Mild pulmonary hypertension. Inferior vena cava collapse with respiration. The inferior vena cava is dilated The estimated ejection fraction is 50-55 %. 2. Abnormal kidney function most likely acute kidney injury from severe anemia, prerenal type: Kidney dysfunction since KRIS, resolved with PRBC transfusion. BUN/creatinine 15/1.0. Monitor kidney function electrolytes. 3. Right knee pain on medial side: Most likely ligamentous strain happened about 1 month ago. On exam, no bony or joint line tenderness and does not seem bony injury. Patient agreed for outpatient follow-up with orthopedics, might need arthroscopy. PT evaluation. 4. Morbid obesity with obstructive sleep apnea: CPAP during naps and at night. 5. Psychiatric history: Bipolar disorder with ADHD during teenage: His psych medications Seroquel, Trileptal and fluoxetine resumed. Patient Problems: Active and Suspected Problems Acute anemia (Acute) Objective: No chest pain or shortness of breath. Patient hemodynamically stable. Blood pressure 125/70. No issues of GI bleed during hospital stay. Physical exam General: Alert, Oriented x3, Cooperative HEENT: Atraumatic, PERRLA, EOMI, Normocephalic Oral: No Gingival or Mucosal Lesions/ Ulcerations Neck: Supple, No JVD, Negative Carotid Bruits Lungs: Air entry diminished in bilateral lung bases. No hypoxia, tachypnea. No crepitation/rhonchi. Cardiovascular: Regular rate, Regular Rhythm, Normal S1, Normal S2, No murmurs Abdomen: Bowel Sounds Present, Soft, Non Tender, Non-Distended : No renal angle tenderness. No suprapubic tenderness. Extremities: No edema, Capillary Refill Less than 3 Seconds Skin: No rashes, No breakdown Musculoskeletal: Chronic mild tenderness since right medial joint line of knee. Neurological: Cranial nerves II-XII grossly intact, Deep Tendon Reflexes 2+/4 and Symmetrical, Neuro grossly intact Psych/Mental Status: Normal Affect, Appropriate. - Physical Exam Vitals/I&O's: Vital Signs Temp Pulse Resp BP Pulse Ox 97.4 F L 69 18 125/70 H 97 04/10/20 05:23 04/10/20 07:35 04/10/20 05:23 04/10/20 05:23 04/10/20 07:42 Oxygen Delivery Method Room Air Weight: 282 lb 10.122 oz Body Mass Index (BMI) 40.6 Intake and Output for Last 24 Hours 04/08/20 04/09/20 04/10/20 23:59 23:59 23:59 Intake Total 1910 / 1910 2785.83 / 2785.83 720 / 720 Output Total 1150 / 1150 600 / 600 0 / 0 Balance 760 / 760 2185.83 / 2185.83 720 / 720 Microbiology Past 72 Hours 04/08/20 10:19 Stool Stool Occult Blood (JIMI) - Final Laboratory Results 04/08/20 10:15: Crossmatch See Detail 04/09/20 15:42: Hgb 7.4 L, Hct 24.3 L 04/10/20 05:45: WBC 6.5, RBC 3.05 L, Hgb 7.4 L, Hct 25.7 L, MCV 84.3 D, MCH 24.3 L, MCHC 28.8 L, RDW Std Deviation 55.3 H, RDW Coeff of Michael 18.3 H, Plt Count 216, MPV 11.1, Immature Gran % (Auto) 0.900, Neut % (Auto) 81.0 H, Lymph % (Auto) 8.9 L, Crawford % (Auto) 8.1, Eos % (Auto) 0.8, Baso % (Auto) 0.3, Absolute Neuts (auto) 5.3, Absolute Lymphs (auto) 0.58 L, Nucleated RBC % 0, Differential Comment SCANNED, Hypochromasia RARE 04/10/20 05:45: Sodium 140, Potassium 4.4, Chloride 112 H, Carbon Dioxide 25.0, Anion Gap 3 L, BUN 14, Creatinine 1.10, Estim Creat Clear Calc 99.83, Est GFR (MDRD) Af Amer 98, Est GFR (MDRD) Non-Af 81, BUN/Creatinine Ratio 12.7, Glucose 122 H, Calcium 8.1 L, Folate 4.60 04/10/20 05:45: Vitamin B12 Pending Current Medications Acetaminophen (Tylenol) 650 mg PO Q6H PRN PRN PRN Reason: Pain Score 1-10/Temp > 100.7 F Last Admin: 04/10/20 10:20 Dose: 650 mg Documented by: Al Hydroxide/Mg Hydroxide (Mylanta Ii) 30 ml PO Q6H PRN PRN PRN Reason: Gastric Burning Diphenhydramine HCl (Benadryl) 50 mg PO QHS PRN PRN PRN Reason: SLEEP Last Admin: 04/08/20 22:11 Dose: 50 mg Documented by: Ferrous Sulfate (Ferrous Sulfate) 325 mg PO DAILY@1200 [facility] Last Admin: 04/10/20 10:15 Dose: 325 mg Documented by: Fluoxetine HCl (Prozac) 40 mg PO DAILY [facility] Last Admin: 04/10/20 10:14 Dose: 40 mg Documented by: Gabapentin (Neurontin) 300 mg PO TID [facility] Last Admin: 04/10/20 05:26 Dose: 300 mg Documented by: Gabapentin (Neurontin) 300 mg PO BID PRN PRN PRN Reason: mood Sodium Chloride () 500 mls @ 15 mls/hr IV PRN PRN PRN Reason: Blood Transfusion Ferric Sodium Gluconate Complex 250 mg/ Sodium Chloride 270 mls @ 135 mls/hr IV X1 ONE Stop: 04/10/20 11:59 Last Admin: 04/10/20 10:12 Dose: 135 mls/hr Documented by: Morphine Sulfate () 2 mg IV Q3H PRN PRN PRN Reason: Pain Score 6-10/10 Last Admin: 04/10/20 04:18 Dose: 2 mg Documented by: Nitroglycerin (Nitrostat) 0.4 mg SUBLINGUAL Q5M PRN PRN Reason: CARDIAC/CHEST PAIN Ondansetron HCl (Zofran) 4 mg IV Q8H PRN PRN PRN Reason: NAUSEA/VOMITING Last Admin: 04/10/20 01:17 Dose: 4 mg Documented by: Oxcarbazepine (Trileptal) 300 mg PO DAILY [facility] Last Admin: 04/10/20 10:16 Dose: 300 mg Documented by: Oxcarbazepine (Trileptal) 900 mg PO QHS [facility] Last Admin: 04/09/20 21:27 Dose: 900 mg Documented by: Oxycodone HCl (Oxyir) 5 mg PO Q4H PRN PRN PRN Reason: Pain Score 4-5/10 Last Admin: 04/09/20 18:52 Dose: 5 mg Documented by: Pantoprazole Sodium (Protonix) 40 mg PO DAILY [facility] Last Admin: 04/10/20 10:20 Dose: 40 mg Documented by: Prochlorperazine Edisylate (Compazine Iv) 5 mg IV Q4H PRN PRN PRN Reason: Breakthrough Nausea/Vomiting Last Admin: 04/10/20 04:14 Dose: 5 mg Documented by: Quetiapine Fumarate (Seroquel) 200 mg PO BID [facility] Last Admin: 04/10/20 10:15 Dose: 200 mg Documented by: Senna/Docusate Sodium (Senokot-S, Gracy-Colace) 2 tablet PO BID PRN PRN Reason: Constipation Sodium Chloride () 10 - 40 ml IV UD PRN PRN Reason: SALINE FLUSH Last Admin: 04/10/20 10:23 Dose: 10 ml Documented by: Discharge Activity: Return to Normal Activity Home Medications: Medications to take at Discharge Diphenhydramine HCl [Diphenhist] 50 mg PO QHS 04/08/20 Fluoxetine HCl [Prozac] 40 mg PO DAILY 04/08/20 Gabapentin 300 mg PO BID PRN 04/08/20 Gabapentin [Neurontin] 300 mg PO DAILY 04/08/20 Oxcarbazepine [Trileptal] 300 mg PO DAILY 04/08/20 Oxcarbazepine [Trileptal] 900 mg PO QHS 04/08/20 Quetiapine Fumarate [Seroquel XR] 400 mg PO QHS 04/08/20 Ferrous Sulfate 325 mg PO DAILY@1200 #90 tab 04/10/20 Pantoprazole Sodium [Protonix] 40 mg PO DAILY #30 tab 04/10/20 Following Prescriptions Were Given to Patient: Ferrous Sulfate 325 mg PO DAILY@1200 #90 tab [facility]: [facility] Pantoprazole Sodium [Protonix] 40 mg PO DAILY #30 tab Transmission Status: Pending to [facility] Primary Care Physician: Amy Doctor,Out of [NON-STAFF] - Please Follow Up With: Fernandez Lucas MD When: in 2 weeks for EGD for anemia Please Follow Up With: Janusz Adame MD When: right ligament injury, medial meniscus in 2 weeks Medical Necessity - Tobacco Use Smoking Status: Current every day smoker Tobacco Use: Cigarettes Meaningful Use Info Meaningful Use Diagnoses (Choose all that apply): None applicable Inpatient E&M: 61676 [facility] Hosp
[2020-04-11 08:42] LABS: Vitamin B12 516 pg/mL (211-911)
[2020-04-11 14:08] LABS: Pathologist Review Reviewed
[2020-04-11 14:12] LABS: Pathologist Review Reviewed
== END 2020-04-10 13:19 | disposition home or self-care (01) | DRG 663 ==
LOC: ED 11:08 → ICU 11:30 → PCU 04-09 19:18
PROVIDERS: Admitting Provider Internal Medicine; Emergency Provider Physician Assistant Medical; Visit Provider Internal Medicine
DX: D50.9 Iron deficiency anemia, unspecified (principal); N17.9 Acute kidney failure, unspecified; Z79.01 Long term (current) use of anticoagulants; Z86.718 Personal history of other venous thrombosis and embolism; I27.20 Pulmonary hypertension, unspecified; I51.7 Cardiomegaly; I51.89 Other ill-defined heart diseases; K44.9 Diaphragmatic hernia without obstruction or gangrene; F31.9 Bipolar disorder, unspecified; G47.33 Obstructive sleep apnea (adult) (pediatric); F90.9 Attention-deficit hyperactivity disorder, unspecified type; E66.01 Morbid (severe) obesity due to excess calories; Z68.41 Body mass index [BMI] 40.0-44.9, adult; Z79.899 Other long term (current) drug therapy; F17.210 Nicotine dependence, cigarettes, uncomplicated
CPT/HCPCS: 36415; 71045; 80048; 80061; 80076; 82274; 82607; 82746; 83735; 84443; 84484; 85014; 85018; 85025; 86850; 86900; 86901; 86920; 86921; 86922; 93005; 93306; 97161; 99251; 99285; 99406; J7030; J7040; J7050; P9016; Q9957; A4216; C8929; G0463; J0610; J1940; J2405; J2916

== ENCOUNTER 2020-07-20 07:38 | Emergency (ER) | payer MEDICAID, SELFPAY ==
[2020-04-08 12:03] VITALS: BMI 40.6
[2020-07-20 07:40] VITALS: BP 140/97; PULSE 69; RESP 20; TEMP 36.4; O2SAT 98; BMI 39.7
--- NOTE | 2020-07-20 07:54 | CT_ITS ---
STUDY: CT ABDOMEN AND PELVIS WITHOUT CONTRAST REASON FOR EXAM: Male, 34 years old. RIGHT SIDED AB PAIN/NAUSEA RADIATION DOSAGE (If Supplied By Facility): CTDIvol = ( 22.79 ) mGy, DLP = ( 1258.47 ) mGycm TECHNIQUE: Transaxial images were obtained from the dome of the diaphragm to the symphysis pubis without oral contrast, and without intravenous contrast. Sagittal and coronal images were reconstructed. Individualized dose optimization techniques were used for this CT. COMPARISON: None. FINDINGS: The visualized lung bases are unremarkable. The visualized portions of the heart are within normal limits. Normal liver. Normal gallbladder and extrahepatic biliary system. Normal spleen. Normal pancreas. There is a 6.1 cm x 6.2 cm rounded soft tissue mass in the left adrenal gland. There is a 4.8 mm calculus in the lower pole calyx of the right kidney. Normal left kidney. There is a moderate hiatal hernia. Normal small intestine. There are multiple colonic diverticula consistent with diverticulosis. The appendix is visualized and appears normal. Normal abdominal aorta. Normal inferior vena cava. Normal retroperitoneum. Diffuse bladder wall thickening although the bladder is not adequately distended. Calcified phleboliths are seen in the pelvis. Small bilateral inguinal hernias containing fat worse on the right side. There are degenerative changes of the visualized lumbar spine. CT/Abdomen/Pelvis without Cont IMPRESSION: 6.1 cm x 6.2 cm rounded soft tissue mass in the left adrenal gland. Sigmoid diverticula. 4.8 mm calculus in the lower pole calyx of the right kidney. Electronically Signed: Chase Jenkins, at 8:56 EST , Service support ,
--- NOTE | 2020-07-20 07:55 | ED.VISSUMM ---
- ER Visit Summary Date of Service: 07/20/20 Chief Complaint: [Abdominal pain] History of Present Illness: The patient is a 34 M [presents to the emergency department complaint of abdominal pain that started around 7 AM this morning. Patient states that he was at work when he started having sudden onset of pain to the right side. Patient states that he has had some nausea with it and rates it currently a 9 out of 10. He describes it as sharp and stabbing. Patient has had kidney stones before but this feels different. Patient denies any fevers or recent illness. Has been eating and drinking normally up to this point. Patient has not had any prior abdominal surgeries. Patient does have history of hypertension. Patient denies any dysuria or hematuria.] Physical Examination: [HEENT-PERRLA, EOMI. Cranial nerves II through XII grossly intact. TMs clear. Mucous membranes moist. No adenopathy. Cardiovascular-regular rate and rhythm without murmur or ectopy Lungs-clear to auscultation, chest wall stable without crepitus or subcu emphysema Abdomen-normoactive bowel sounds, soft. Patient has some tenderness to palpation over the right lower quadrant towards the right flank. Patient has some mild tenderness over the right upper quadrant however negative Smalls sign. There is no rebound, rigidity, or pedal signs. Extremities-intact ?4, normal range of motion, normal pulses, atraumatic] Test Results: [CBC with differential obtained was normal. Chemistries unremarkable. LFTs were normal. Urinalysis was normal. CT scan of the abdomen pelvis without contrast obtained showed a 6.1 cm x 6.2 cm rounded soft tissue mass in the left adrenal gland. Patient also was noted to have evidence of sigmoid diverticula and a 4.8 mm calculus in the lower pole calyx of the right kidney. Patient had a normal appendix.] Emergency Department Course and Treatment: [The line established on arrival. Patient was medicated with Toradol as well as Zofran and morphine and he had good pain relief with that. Case was discussed with general surgeon on-call as patient would like to stay within the [facility] system and I spoke with Dr. Mimi Tavares who would be happy to follow-up on the adrenal mass.] Treatment Plan: [Patient will be referred to Dr. Mimi Tavares for follow-up of the adrenal mass. Patient will be given a prescription for few [place] and Zofran for pain.] Disposition: [Discharged home in stable condition] Impression: [Abdominal pain-etiology uncertain Left adrenal mass] This note was generated with [employer] dictation software. It may contain incorrect words, spelling, and punctuation that were not noted in review of the chart prior to signing ED Disposition - Plan for ED Patient: Referrals: [facility] Doctor,Out of [NON-STAFF] -
[2020-07-20] MEDS: Ketorolac 15 MG/ML Vial IV (08:10)
[2020-07-20] MEDS: Morphine 4 MG/ML Syringe IV (08:10)
[2020-07-20 08:11] LABS: Bacteria 0 SEEN /hpf (None Seen); Mucous, Urine 0 SEEN /hpf (<or=2+); Red Blood Cells-Urine 0 SEEN /hpf (0-5)
[2020-07-20] MEDS: 0.9% Normal Saline 1,000 ML 125 ML IV (08:11)
[2020-07-20] MEDS: Ondansetron 4 MG/2 ML Vial IV (08:11)
[2020-07-20 08:16] LABS: Absolute Lymphocyte Count 1.99 X10^3/uL (0.83-4.51); Absolute Neutrophil Count 4.7 X10^3/uL (2.0-7.7); Basophil# 0.04 X10^3/uL; Basophil% 0.5 % (0-1); Eosinophil# 0.14 X10^3/uL; Eosinophils% 1.8 % (0-5); Hematocrit 37.6 % (40-54); Lymphocyte # 1.99 X10^3/ul (4.0); Lymphocyte % 26.2 % (19-41); Mean Corp Hgb Conc 31.9 g/dL (32-36); Mean Corpuscular Hgb 25.8 pg (27.0-32.0); Mean Corpuscular Volume 80.9 fL (80-94); Monocyte# 0.72 X10^3/uL; Monocyte% 9.5 % (0-10); NRBC Flagged by Analyzer 0 % (0-5); Neutrophil # 4.65 X10^3/uL (2.7-7.7); Neutrophil % 61.3 % (47-70); Platelet Count 293 K/mm3 (150-450); RBC Distribution Width CV 14.2 % (11.6-14.6); RBC Distribution Width SD 41.3 fl (35.1-43.9); Red Blood Count 4.65 M/mm3 (4.6-6.2); White Blood Count 7.6 K/mm3 (4.4-11.0)
[2020-07-20 08:29] LABS: ALB/GLOB Ratio 0.9 RATIO (0.9-2.4); AST(SGOT) 24 U/L (15-37); Alanine Aminotransfer ALT/SGPT 39 U/L (16-61); Albumin, Serum 3.6 g/dL (3.2-5.0); Alkaline Phosphatase 120 U/L (45-117); Anion Gap 6 (5-15); BUN 15 mg/dL (7-18); Calcium,Total 8.8 mg/dL (8.5-10.1); Chloride 110 mmol/L (98-107); Creatinine, Serum 0.94 mg/dL (0.70-1.30); EST Glomerular Filtration Rate 97 mL/min (>60); Est Glom Filt Rate - Afr Amer 117 mL/min (>60); Estimated Creatinine Clearance 116.82 ml/min; Globulin 3.9 g/dL (2.2-4.2); Glucose 85 mg/dL (74-106); Lipase 286 U/L (73-393); Potassium 4.1 mmol/L (3.5-5.1); Protein, Total 7.5 g/dL (6.4-8.2); Sodium Level 142 mmol/L (136-145)
[2020-07-20 08:44] LABS: Color, Urine Yellow (Yellow); Glucose, Dipstick NEGATIVE (Normal); Ketone-Dipstick Negative (Negative); Protein-Dipstick Negative (Negative); Specific Gravity, Urine 1.025 (1.002-1.030); Urine Bilirubin Dipstick Negative (Negative); Urine Clarity Clear (Clear); Urine Urobilinogen Normal (Normal)
[2020-07-20 08:45] LABS: Leukocyte Esterase-Dipstick 25 /ul (Negative); Nitrite-Dipstick Negative (Negative); Occult Blood-Urine Negative /ul (Negative)
[2020-07-20 08:46] LABS: Squamous Epithelial Cells - UA 5-10 SEEN /hpf (0-5); White Blood Cells 0-5 SEEN /hpf (0-5)
--- NOTE | 2020-07-20 09:19 | ED.DEP ---
ED Disposition - Plan for ED Patient: Instructions: ED Unknown Causes of Abdominal ... Prescriptions: Hydrocodone Bitart/Apap 5-325 [[place] 5MG-325MG] 1 tab PO Q4H PRN PRN 2 Days #10 tab PRN Reason: Pain Prescription Printed Hydrocodone Bitart/Apap 5-325 [[place] 5MG-325MG] 1 tab PO Q4H PRN PRN 2 Days #10 tab PRN Reason: Pain Prescription Printed Ondansetron [Zofran Odt] 4 mg PO Q8H PRN PRN #10 tab PRN Reason: Nausea Prescription Printed Referrals: [facility] Doctor,Out of [NON-STAFF] - Mimi Tavares MD [STAFF PHYSICIAN] - 3-5 Days
[2020-07-20 09:38] VITALS: BP 108/77; PULSE 62; RESP 15; O2SAT 99
== END 2020-07-20 09:40 | disposition home or self-care (01) ==
PROVIDERS: Emergency Provider Emergency Medicine
DX: E27.9 Disorder of adrenal gland, unspecified (principal); R10.9 Unspecified abdominal pain; R11.0 Nausea; I10 Essential (primary) hypertension; Z87.442 Personal history of urinary calculi; Z79.899 Other long term (current) drug therapy; Z72.0 Tobacco use
CPT/HCPCS: 74176; 80053; 81001; 83690; 85025; 96361; 96374; 96375; 99283; J7030; J2405

== ENCOUNTER 2020-07-26 09:56 | Emergency (ER) | payer MEDICAID, SELFPAY ==
[2020-07-26 09:58] VITALS: BP 150/84; PULSE 56; RESP 14; TEMP 35.8; O2SAT 99; BMI 17.5
--- NOTE | 2020-07-26 10:11 | CT_ITS ---
STUDY: CT ABDOMEN AND PELVIS WITH CONTRAST REASON FOR EXAM: Male, 34 years old. Right flank pain, known left adrenal mass. Hx hypertension. RADIATION DOSAGE (If Supplied By Facility): CTDIvol = ( 23.75 ) mGy, DLP = ( 1604.21 ) mGycm TECHNIQUE: Transaxial images were obtained from the dome of the diaphragm to the symphysis pubis without oral contrast. 100mL Isovue 300 was administered. Sagittal and coronal images were reconstructed. Individualized dose optimization techniques were used for this CT. COMPARISON: Comparison is made with prior examination dated 07/20/2020. FINDINGS: The visualized lung bases are unremarkable. The visualized portions of the heart are within normal limits. There is decreased attenuation of the liver consistent with steatosis. Normal gallbladder and extrahepatic biliary system. Normal spleen. Normal pancreas. Stable 5.7 cm x 6.2 cm solid mass in the left adrenal gland. Stable 4.8 mm calculus in the lower pole calyx of the right kidney. Normal left kidney. There is a moderate-sized hiatal hernia. Normal small intestine. Normal colon. The appendix is visualized and appears normal. Normal abdominal aorta. Normal inferior vena cava. There is borderline retroperitoneal lymphadenopathy with enlarged nodes no greater than 10mm in the short axis diameter. Normal urinary bladder. Calcified phleboliths. Normal abdominal wall. There are degenerative changes of the visualized lumbar spine. CT/Abdomen/Pelvis W IV Cont ONLY IMPRESSION: Fatty infiltration of the liver. Stable left adrenal mass. Stable 4.8 mm calculus in the lower pole calyx of the right kidney. Electronically Signed: Chase Jenkins, at 11:55 EST , Service support ,
--- NOTE | 2020-07-26 10:11 | ED.VIS.GEN ---
History of Present Illness Chief Complaint: Flank Pain Informant: Patient Narrative: 34-year-old male presenting with right flank pain. Patient was seen last week and had a CT of his abdomen pelvis without contrast which demonstrated a left adrenal mass which he is supposed to follow-up with surgery and a right renal calculus. He states his pain is never gone away. Is been constant. Is now worse and causing increased nausea. States the pain starts in the flank and wraps around. He states it is a sharp pressure and generally aching. He denies any urinary symptoms. Normal bowel movements. No fevers. No prior abdominal surgeries. He has not followed up with anybody from his last ED visit. She notes a history of hypertension, degenerative disc disease, bipolar disorder, remote leg DVT. - Past Medical History (1) Acute anemia Status: Acute (2) Bipolar disorder Status: Chronic (3) History of DVT (deep vein thrombosis) Status: Chronic (4) Morbid obesity Status: Chronic (5) Obstructive sleep apnea Status: Chronic (6) ADHD Status: Inactive Past Medical History - Allergies and Home Meds Allergies/Adverse Reactions: Allergies cinnamon Allergy (Verified 07/26/20 09:57) Anaphylaxis Primary Care Physician: Barbara Loredo [Other] Surgical History: tonsillectomy Smoking Status: Former smoker Drugs: None - Family History Paternal Family History: Reports: Heart Disease - [place] in fourth or fifth decade Maternal Family History: Reports: Heart Disease Review of Systems General: Denies: Chills, Fever, Sweats Eyes: Denies: Visual changes - bilaterally, Diplopia ENT: Denies: Rhinorrhea, Sore throat Cardiovascular: Denies: Chest pain, Palpitations Respiratory: Denies: Dyspnea, Cough, Dyspnea on exertion Gastrointestinal: Reports: Abdominal pain, Nausea. Denies: Vomiting, Diarrhea, Melena, Hematochezia Genitourinary: Denies: Dysuria, Hematuria, Frequency Musculoskeletal: Denies: Back pain, Extremity Pain Skin: Denies: Rash, Wounds Neurological: Denies: Headache, Weakness, Numbness Physical Exam Vital Signs/Narrative: Vital Signs Temp Pulse Resp BP Pulse Ox 07/26/20 09:58 96.4 F L 56 L 14 150/84 H 99 Inital Vital Signs reviewed: Yes General: Well nourished, Well developed, Obese, No Acute Distress Head: Normocephalic, Atraumatic Eyes: Perrl, EOMI ENT: Moist mucous membranes, No rhinorrhea Neck: Supple, Nontender Cardiovascular: Regular rate, Regular rhythm, No murmurs Respiratory: No distress, CTA bilaterally, Chest nontender Abdomen: Soft, Nondistended, Normal bowel sounds, Tender Back: CVA tenderness Extremities: Nontender, No edema Skin: Normal color, No rash Neurological: Alert, Oriented x3, Cranial nerves II-XII grossly intact, Normal Strength, Normal Sensation Psychological: Normal affect, Normal Mood Diagnostic/Tx/Re-eval Clinical Impression(s) from Imaging Studies Abdomen/Pelvis CT 07/26/20 10:11 IMPRESSION: Fatty infiltration of the liver. Stable left adrenal mass. Stable 4.8 mm calculus in the lower pole calyx of the right kidney. Electronically Signed: Chase Jenkins, at 11:55 EST , Service support , Laboratory Last Values WBC 6.1 K/mm3 (4.4-11.0) 07/26/20 10:25 RBC 4.56 M/mm3 (4.6-6.2) L 07/26/20 10:25 Hgb 11.8 g/dL (13.0-16.5) L 07/26/20 10:25 Hct 37.1 % (40-54) L 07/26/20 10:25 MCV 81.4 fL (80-94) 07/26/20 10:25 MCH 25.9 pg (27.0-32.0) L 07/26/20 10:25 MCHC 31.8 g/dL (32-36) L 07/26/20 10:25 RDW Std Deviation 40.7 fl (35.1-43.9) 07/26/20 10:25 RDW Coeff of Michael 13.8 % (11.6-14.6) 07/26/20 10:25 Plt Count 243 K/mm3 (150-450) 07/26/20 10:25 MPV 9.9 fl (6.2-12.0) 07/26/20 10:25 Immature Gran % (Auto) 0.500 % (0.0-0.9) 07/26/20 10:25 Neut % (Auto) 57.8 % (47-70) 07/26/20 10:25 Lymph % (Auto) 30.0 % (19-41) 07/26/20 10:25 [place] % (Auto) 8.7 % (0-10) 07/26/20 10:25 Eos % (Auto) 2.0 % (0-5) 07/26/20 10:25 Baso % (Auto) 1.0 % (0-1) 07/26/20 10:25 Absolute Neuts (auto) 3.5 X10^3/uL (2.0-7.7) 07/26/20 10:25 Absolute Lymphs (auto) 1.83 X10^3/uL (0.83-4.51) 07/26/20 10:25 Nucleated RBC % 0 % (0-5) 07/26/20 10:25 Sodium 142 mmol/L (136-145) 07/26/20 10:25 Potassium 4.0 mmol/L (3.5-5.1) 07/26/20 10:25 Chloride 110 mmol/L (98-107) H 07/26/20 10:25 Carbon Dioxide 28.0 mmol/L (21.0-32.0) 07/26/20 10:25 Anion Gap 4 (5-15) L 07/26/20 10:25 BUN 14 mg/dL (7-18) 07/26/20 10:25 Creatinine 0.90 mg/dL (0.70-1.30) 07/26/20 10:25 Estim Creat Clear Calc 92.36 ml/min 07/26/20 10:25 Est GFR (MDRD) Af Amer 123 mL/min (>60) 07/26/20 10:25 Est GFR (MDRD) Non-Af 102 mL/min (>60) 07/26/20 10:25 BUN/Creatinine Ratio 15.6 RATIO (10-20) 07/26/20 10:25 Glucose 73 mg/dL (74-106) L 07/26/20 10:25 Calcium 8.7 mg/dL (8.5-10.1) 07/26/20 10:25 Total Bilirubin 0.20 mg/dL (0.20-1.00) 07/26/20 10:25 AST 21 U/L (15-37) 07/26/20 10:25 ALT 32 U/L (16-61) 07/26/20 10:25 Alkaline Phosphatase 111 U/L (45-117) 07/26/20 10:25 Total Protein 7.4 g/dL (6.4-8.2) 07/26/20 10:25 Albumin 3.6 g/dL (3.2-5.0) 07/26/20 10:25 Globulin 3.8 g/dL (2.2-4.2) 07/26/20 10:25 Albumin/Globulin Ratio 0.9 RATIO (0.9-2.4) 07/26/20 10:25 Lipase 295 U/L (73-393) 07/26/20 10:25 Urine Color Yellow (Yellow) 07/26/20 10:15 Urine Clarity Clear (Clear) 07/26/20 10:15 Urine pH 5.0 (5.0 - 8.0) 07/26/20 10:15 Ur Specific [place] 1.025 (1.002-1.030) 07/26/20 10:15 Urine Protein 30 mg/dl (Negative) H 07/26/20 10:15 Urine Glucose (UA) Normal mg/dl (Normal) 07/26/20 10:15 Urine Ketones 5 mg/dl (Negative) H 07/26/20 10:15 Urine Occult Blood Negative /ul (Negative) 07/26/20 10:15 Urine Nitrite Negative (Negative) 07/26/20 10:15 Urine Bilirubin Negative mg/dL (Negative) 07/26/20 10:15 Urine Urobilinogen Normal mg/dl (Normal) 07/26/20 10:15 Ur Leukocyte Esterase 25 /ul (Negative) H 07/26/20 10:15 Urine RBC 0 SEEN /hpf (0-5) 07/26/20 10:15 Urine WBC 0-5 SEEN /hpf (0-5) 07/26/20 10:15 Ur Squamous Epith Cells 0-5 SEEN /hpf (0-5) 07/26/20 10:15 Urine Bacteria 1+ /hpf (None Seen) 07/26/20 10:15 Urine Mucus 2+ /hpf (<or=2+) 07/26/20 10:15 - Medical Decision Making IV was established and patient received IV fluids and Toradol. He states the Toradol did nothing for him. His work-up again is essentially unchanged from his visit last week. At this point I do not see an emergent root cause of his pain. Plan will be outpatient follow-up with primary care. Patient to return if worsening or concerns. I can write for some Bentyl and see if that changes his pain. ED Disposition - Plan for ED Patient: Disposition: Home or Assisted Living Diagnosis: Acute abdominal pain Instructions: ED Unknown Causes of Abdominal ... Prescriptions: Dicyclomine HCl [Bentyl] 20 mg PO TIDAC #20 cap Prescription Printed Referrals: Barbara Loredo [Other] - 3-5 Days
[2020-07-26 10:23] LABS: Red Blood Cells-Urine 0 SEEN /hpf (0-5)
[2020-07-26] MEDS: 0.9% Normal Saline 1,000 ML 1000 ML IV (10:26)
[2020-07-26] MEDS: Ketorolac 30 MG/ML Syringe IV (10:26)
[2020-07-26] MEDS: Ondansetron 4 MG/2 ML Vial IV (10:27)
[2020-07-26 10:33] LABS: Color, Urine Yellow (Yellow); Glucose, Dipstick Normal (Normal); Ketone-Dipstick 5 mg/dl (Negative); Leukocyte Esterase-Dipstick 25 /ul (Negative); Nitrite-Dipstick Negative (Negative); Occult Blood-Urine Negative /ul (Negative); Protein-Dipstick 30 mg/dl (Negative); Specific Gravity, Urine 1.025 (1.002-1.030); Urine Bilirubin Dipstick Negative (Negative); Urine Clarity Clear (Clear); Urine Urobilinogen Normal (Normal)
[2020-07-26 10:39] LABS: Absolute Lymphocyte Count 1.83 X10^3/uL (0.83-4.51); Absolute Neutrophil Count 3.5 X10^3/uL (2.0-7.7); Basophil# 0.06 X10^3/uL; Eosinophil# 0.12 X10^3/uL; Hematocrit 37.1 % (40-54); Hemoglobin 11.8 g/dL (13.0-16.5); Lymphocyte # 1.83 X10^3/ul (4.0); Mean Corp Hgb Conc 31.8 g/dL (32-36); Mean Corpuscular Hgb 25.9 pg (27.0-32.0); Mean Corpuscular Volume 81.4 fL (80-94); Mean Platelet Vol. 9.9 fl (6.2-12.0); Monocyte# 0.53 X10^3/uL; Monocyte% 8.7 % (0-10); NRBC Flagged by Analyzer 0 % (0-5); Neutrophil # 3.54 X10^3/uL (2.7-7.7); Neutrophil % 57.8 % (47-70); Platelet Count 243 K/mm3 (150-450); RBC Distribution Width CV 13.8 % (11.6-14.6); RBC Distribution Width SD 40.7 fl (35.1-43.9); Red Blood Count 4.56 M/mm3 (4.6-6.2); White Blood Count 6.1 K/mm3 (4.4-11.0)
[2020-07-26 10:47] LABS: Bacteria 1+ /hpf (None Seen); Mucous, Urine 2+ /hpf (<or=2+); Squamous Epithelial Cells - UA 0-5 SEEN /hpf (0-5); White Blood Cells 0-5 SEEN /hpf (0-5)
[2020-07-26 10:58] LABS: ALB/GLOB Ratio 0.9 RATIO (0.9-2.4); AST(SGOT) 21 U/L (15-37); Alanine Aminotransfer ALT/SGPT 32 U/L (16-61); Albumin, Serum 3.6 g/dL (3.2-5.0); Alkaline Phosphatase 111 U/L (45-117); Anion Gap 4 (5-15); BUN 14 mg/dL (7-18); BUN/Creat Ratio 15.6 RATIO (10-20); Calcium,Total 8.7 mg/dL (8.5-10.1); Chloride 110 mmol/L (98-107); EST Glomerular Filtration Rate 102 mL/min (>60); Est Glom Filt Rate - Afr Amer 123 mL/min (>60); Estimated Creatinine Clearance 92.36 ml/min; Globulin 3.8 g/dL (2.2-4.2); Glucose 73 mg/dL (74-106); Lipase 295 U/L (73-393); Protein, Total 7.4 g/dL (6.4-8.2); Sodium Level 142 mmol/L (136-145)
[2020-07-26 12:00] VITALS: BP 133/83; PULSE 55; RESP 18; O2SAT 100
== END 2020-07-26 12:35 | disposition home or self-care (01) ==
PROVIDERS: Emergency Provider Emergency Medicine
DX: R10.9 Unspecified abdominal pain (principal); E27.9 Disorder of adrenal gland, unspecified; N20.0 Calculus of kidney; I10 Essential (primary) hypertension; D64.9 Anemia, unspecified; F31.9 Bipolar disorder, unspecified; E66.01 Morbid (severe) obesity due to excess calories; G47.33 Obstructive sleep apnea (adult) (pediatric); Z86.718 Personal history of other venous thrombosis and embolism; Z79.899 Other long term (current) drug therapy; Z87.891 Personal history of nicotine dependence
CPT/HCPCS: 74177; 80053; 81001; 83690; 85025; 96361; 96374; 96375; 99285; J7030; Q9967; A4216; J2405

== ENCOUNTER 2020-09-08 22:11 | Emergency (ER) | payer MEDICAID, SELFPAY ==
[2020-09-08 22:11] VITALS: BP 144/88; PULSE 75; RESP 18; TEMP 35.6; O2SAT 98
[2020-09-08 22:12] VITALS: BP 144/88; PULSE 74; RESP 18; TEMP 35.6; O2SAT 98; BMI 41.1
--- NOTE | 2020-09-08 22:30 | ED.DCSUM_ITS ---
History of Present Illness Chief Complaint: Wound Informant: Patient Onset: Today Narrative: 35-year-old male presenting with wound dehiscence on the left abdomen with drainage of serosanguineous fluid. He states this started tonight. He states initially when the fluid started coming out it did soak his shirt and leg however he states that it is slowed down now. He denies any new abdominal pain except for some soreness from the surgery itself. He denies any fever, chills, nausea, vomiting. He states he feels otherwise well. Patient states that his surgeon was Dr. Verdin at [facility]. He states he was diagnosed with renal mass a couple of months ago. He just had surgery on the to remove the adrenal gland on the left. Patient states he was doing fine up until the wound started leaking. He does not have any redness around the wound. Past Medical History - Allergies and Home Meds Allergies/Adverse Reactions: Allergies cinnamon Allergy (Verified 07/26/20 09:57) Anaphylaxis Primary Care Physician: Care Physician,No Primary [Primary Care Provider] - Prior records reviewed: Yes Past Medical History: - - Hypertension, obstructive sleep apnea, bipolar disorder, degenerative disc disease ADHD Surgical History: tonsillectomy Lives: Spouse/ Significant Other Smoking Status: Current every day smoker Alcohol: None Drugs: None - Family History Paternal Family History: Reports: Heart Disease - [place] in fourth or fifth decade Maternal Family History: Reports: Heart Disease Review of Systems General: Denies: Chills, Fever, Sweats Eyes: Denies: Visual changes - bilaterally, Diplopia ENT: Denies: Rhinorrhea, Sore throat Cardiovascular: Denies: Chest pain, Palpitations Gastrointestinal: Denies: Abdominal pain, Nausea, Vomiting, Diarrhea, Melena, Hematochezia Genitourinary: Denies: Dysuria, Hematuria, Frequency Musculoskeletal: Denies: Back pain, Extremity Pain Skin: Reports: Wounds - Wound dehiscence from surgical site with leakage of fluid.. Denies: Rash Neurological: Denies: Headache, Weakness, Numbness Physical Exam Vital Signs/Narrative: Vital Signs Temp Pulse Resp BP Pulse Ox 09/08/20 22:12 96.0 F L 74 18 144/88 H 98 09/08/20 22:11 96.0 F L 75 18 144/88 H 98 Inital Vital Signs reviewed: Yes General: Well nourished, Well developed, No Acute Distress Head: Normocephalic, Atraumatic Eyes: Perrl, EOMI ENT: Moist mucous membranes, No rhinorrhea Neck: Supple, Nontender Cardiovascular: Regular rate, Regular rhythm, No murmurs Respiratory: No distress, CTA bilaterally, Chest nontender Abdomen: Soft, Nontender, Nondistended, Normal bowel sounds Back: Nontender, Normal Inspection Extremities: Nontender, No edema Skin: - - Patient has 3 surgical incision sites the upper 2 surgical sites appear to be healing well. There is no surrounding induration or erythema. The lower surgical site on his left lower quadrant has a slight dehiscence and there is serosanguineous fluid draining. There is no surrounding cellulitis. Neurological: Alert, Oriented x3 Psychological: Normal affect, Normal Mood Diagnostic/Tx/Re-eval Clinical Impression(s) from Imaging Studies Abdomen/Pelvis CT 09/08/20 23:14 IMPRESSION: 1. Stranding and air within the subcutaneous fat of the left lateral lower abdominal wall. No communication with the peritoneal cavity. 2. No evidence of acute intra-abdominal process or major interval change. Electronically Signed: Giorgio Solo DO at 23:51 EST Tel [phone], Service support , Laboratory Data 09/08/20 09/08/20 22:36 22:36 WBC 9.7 RBC 4.54 L Hgb 11.4 L Hct 37.6 L MCV 82.8 MCH 25.1 L MCHC 30.3 L RDW Std Deviation 44.7 H RDW Coeff of Michael 14.8 H Plt Count 332 MPV 9.6 Immature Gran % (Auto) 0.500 Neut % (Auto) 56.9 Lymph % (Auto) 31.0 [place] % (Auto) 9.2 Eos % (Auto) 1.8 Baso % (Auto) 0.6 Absolute Neuts (auto) 5.5 Absolute Lymphs (auto) 3.02 Nucleated RBC % 0 Sodium 142 Potassium 3.9 Chloride 111 H Carbon Dioxide 25.0 Anion Gap 6 BUN 14 Creatinine 1.05 Estim Creat Clear Calc 103.59 Est GFR (MDRD) Af Amer 103 Est GFR (MDRD) Non-Af 85 BUN/Creatinine Ratio 13.3 Glucose 127 H Calcium 8.9 Total Bilirubin 0.20 AST 15 ALT 29 Alkaline Phosphatase 115 Total Protein 7.4 Albumin 3.4 Globulin 4.0 Albumin/Globulin Ratio 0.8 L - Medical Decision Making 5-year-old male presenting with leakage from his abdominal incision site. There appears to be scant drainage at this time although he states that there was a large amount of fluid earlier. This does appear to be there is sanguinous and is mostly clear. Is not purulent. He does not have any cellulitis around his site. He states he has been doing well since his surgery on the . CBC shows a blood cell count of 9.7, hemoglobin 11.4, platelets 332. Renal function and electrolytes are normal. LFTs are normal. I did discuss the case with Dr. Verdin who stated his lungs there is not a large fluid collection on his CT and there is no signs of a fascial injury patient can be put in a dressing and he will reach out to him tomorrow to set up a new office visit earlier than the third. Previous lab work was reviewed patient previously had hemoglobin of 10.5 at [facility] and is now higher. There is no change in his electrolytes and renal function. Patient had CT of the abdomen pelvis which shows some stranding in the area where he had surgery however there does not appear to be any cellulitic change and he does not have a white blood cell count. His drainage is serosanguineous and not purulent. I do not believe he needs antibiotics. Specifically the area of inflammation does not track into the intra-abdominal area. Patient was counseled that his surgeon would be reaching out to him to set up an earlier appointment in the third. I also counseled him that if did not call sometime in the morning to reach out to them and set up an earlier appointment. He acknowledged understanding. Given return precautions. Patient placed in a dressing and given extra supplies to take care of himself at home until he can get more. Patient stable discharge. Impression: 1. Postop wound check 2. Partial wound dehiscence ED Disposition - Plan for ED Patient: Disposition: Home or Assisted Living Instructions: ED Post Op Wound Check, General Referrals: Care Physician,No Primary [Primary Care Provider] -
[2020-09-08 22:45] LABS: Absolute Lymphocyte Count 3.02 X10^3/uL (0.83-4.51); Absolute Neutrophil Count 5.5 X10^3/uL (2.0-7.7); Basophil# 0.06 X10^3/uL; Basophil% 0.6 % (0-1); Eosinophil# 0.18 X10^3/uL; Eosinophils% 1.8 % (0-5); Hematocrit 37.6 % (40-54); Hemoglobin 11.4 g/dL (13.0-16.5); Lymphocyte # 3.02 X10^3/ul (4.0); Mean Corp Hgb Conc 30.3 g/dL (32-36); Mean Corpuscular Hgb 25.1 pg (27.0-32.0); Mean Corpuscular Volume 82.8 fL (80-94); Mean Platelet Vol. 9.6 fl (6.2-12.0); Monocyte% 9.2 % (0-10); NRBC Flagged by Analyzer 0 % (0-5); Neutrophil # 5.52 X10^3/uL (2.7-7.7); Neutrophil % 56.9 % (47-70); Platelet Count 332 K/mm3 (150-450); RBC Distribution Width CV 14.8 % (11.6-14.6); RBC Distribution Width SD 44.7 fl (35.1-43.9); Red Blood Count 4.54 M/mm3 (4.6-6.2); White Blood Count 9.7 K/mm3 (4.4-11.0)
[2020-09-08 23:02] LABS: ALB/GLOB Ratio 0.8 RATIO (0.9-2.4); AST(SGOT) 15 U/L (15-37); Alanine Aminotransfer ALT/SGPT 29 U/L (16-61); Albumin, Serum 3.4 g/dL (3.2-5.0); Alkaline Phosphatase 115 U/L (45-117); Anion Gap 6 (5-15); BUN 14 mg/dL (7-18); BUN/Creat Ratio 13.3 RATIO (10-20); Calcium,Total 8.9 mg/dL (8.5-10.1); Chloride 111 mmol/L (98-107); Creatinine, Serum 1.05 mg/dL (0.70-1.30); EST Glomerular Filtration Rate 85 mL/min (>60); Est Glom Filt Rate - Afr Amer 103 mL/min (>60); Estimated Creatinine Clearance 103.59 ml/min; Glucose 127 mg/dL (74-106); Potassium 3.9 mmol/L (3.5-5.1); Protein, Total 7.4 g/dL (6.4-8.2); Sodium Level 142 mmol/L (136-145)
--- NOTE | 2020-09-08 23:14 | CT_ITS ---
STUDY: CT ABDOMEN AND PELVIS WITH CONTRAST REASON FOR EXAM: Male, 35 years old. Left abdominal drainage RADIATION DOSAGE (If Supplied By Facility): CTDIvol = ( 22.06 ) mGy, DLP = ( 1392.88 ) mGycm TECHNIQUE: Transaxial images were obtained from the dome of the diaphragm to the symphysis pubis without oral contrast. IV 100mL Isovue-370 was administered. Sagittal and coronal images were reconstructed. Individualized dose optimization techniques were used for this CT. COMPARISON: 07/26/2020. FINDINGS: The visualized lung bases are unremarkable. The visualized portions of the heart are within normal limits. Normal liver. Normal gallbladder and extrahepatic biliary system. Normal spleen. Normal pancreas. A normal right adrenal gland. Left adrenal gland is not clearly visualized. Stable calcification lower pole. Otherwise normal right kidney. Normal left kidney. Normal visualized ureters. There is a hiatal hernia the gastric fundus. The distal stomach lies below the diaphragm and appears normal. Normal small intestine. Normal colon. The appendix is visualized and appears normal. Normal abdominal aorta. Normal inferior vena cava. Normal retroperitoneum. Normal urinary bladder. Normal prostate. There are phleboliths in the pelvis without lymphadenopathy. No free air or free fluid is seen within the abdominal cavity. There is stranding in the subcutaneous fat of the left upper abdomen. Air is also contained within the lateral facet is not entirely included on the exam. There is no fluid collection. The degree of stranding and subcutaneous air is increased since the prior study. There are no osseous changes. CT/Abdomen/Pelvis W IV Cont ONLY IMPRESSION: 1. Stranding and air within the subcutaneous fat of the left lateral lower abdominal wall. No communication with the peritoneal cavity. 2. No evidence of acute intra-abdominal process or major interval change. Electronically Signed: Giorgio Solo DO at 23:51 EST Tel [phone], Service support ,
== END 2020-09-09 00:09 | disposition home or self-care (01) ==
PROVIDERS: Emergency Provider Student in an Organized Health Care Education/Training Program
DX: T81.30XA Disruption of wound, unspecified, initial encounter (principal); I10 Essential (primary) hypertension; G47.33 Obstructive sleep apnea (adult) (pediatric); F31.9 Bipolar disorder, unspecified; F90.9 Attention-deficit hyperactivity disorder, unspecified type; Z79.899 Other long term (current) drug therapy; F17.200 Nicotine dependence, unspecified, uncomplicated
CPT/HCPCS: 74177; 80053; 85025; 99282; Q9967

== ENCOUNTER 2020-10-10 19:22 | Emergency (ER) | payer MEDICAID, SELFPAY ==
[2020-10-10 19:23] VITALS: BP 136/72; PULSE 123; RESP 18; TEMP 36.4; O2SAT 98; BMI 40.3
--- NOTE | 2020-10-10 19:58 | CT_ITS ---
STUDY: CT ABDOMEN AND PELVIS WITH CONTRAST REASON FOR EXAM: Male, 35 years old. abd pain RADIATION DOSAGE (If Supplied By Facility): CTDIvol = ( 17.08 ) mGy, DLP = ( 1379.28 ) mGycm TECHNIQUE: Transaxial images were obtained from the dome of the diaphragm to the symphysis pubis without oral contrast. IV 100mL Isovue-300 was administered. Sagittal and coronal images were reconstructed. Individualized dose optimization techniques were used for this CT. COMPARISON: CT of abdomen and pelvis dated September 08, 2020 FINDINGS: The visualized lung bases are unremarkable. Normal liver. No intrahepatic biliary duct dilatation or liver mass. Normal gallbladder and extrahepatic biliary system. Normal spleen. Normal pancreas. Normal right adrenal gland. Prior right adrenalectomy. Normal right kidney. Normal left kidney. No hydronephrosis or renal masses. No large stones. There is a small hiatal hernia. Normal small intestine. Mild inflammatory hazy edema is present around the cecum/ascending colon compatible with mild colitis. No acute diverticulitis. No free air or free fluid. Similar findings are seen in the mid descending colonic region. There are multiple colonic diverticula consistent with diverticulosis. No bowel dilatation or obstruction. No free air or free fluid. The appendix is visualized and appears normal. Normal abdominal aorta. Normal inferior vena cava. Normal retroperitoneum. Normal urinary bladder. Normal abdominal wall. Tiny left fat-containing inguinal hernia. Normal osseous structures. CT/Abdomen/Pelvis W IV Cont ONLY IMPRESSION: Mild colitis. 1. Mild inflammatory hazy edema is present around the cecum/ascending colon compatible with mild colitis. No acute diverticulitis. No free air or free fluid. Similar findings are seen in the mid descending colonic region. Electronically Signed: Mk Christianson MD at 21:50 EDT , Service support ,
--- NOTE | 2020-10-10 19:59 | ED.VISSUMM ---
- ER Visit Summary Date of Service: 10/10/20 Chief Complaint: Abdominal pain History of Present Illness: The patient is a 35 M Struve hypertension, kidney stone and anemia. In August he had a left adrenal mass resection which was benign. States that on Saturday he started having diffuse abdominal pain with cramping. Nausea vomiting and copious liquid diarrhea. Fevers as high as 102. He denies any melena. He denies any dysuria. He is never had any abdominal surgery other than the recent adrenal resection. Physical Examination: 35-year-old male no acute distress vital signs stable afebrile. HEENT exam unremarkable. Moist with members. Neck nontender no lymphadenopathy. Lungs clear to auscultation bilaterally. Heart regular rhythm rate about 110 no murmur. Abdomen soft. Nondistended normal bowel sounds. Mildly diffusely tender. No peritoneal signs. No hernia or mass. No signs of obstruction. Both the right upper and right lower quadrants are unremarkable. The pain appears to be the midline in periumbilical. Moving all 4 extremities. No edema. Back nontender. Neurologically is awake and alert with no focal motor deficits. Test Results: CBC shows a white count of 7 hemoglobin 12. No bands. Chemistries unremarkable gap of 4 creatinine 1.28. Liver enzymes normal. Lipase normal of 234. UA negative except for ketones. No infection. CAT scan of the abdomen pelvis done with IV contrast shows cecum and ascending colon with mild colitis. No free air. No acute diverticulitis. No fluid. Also seen on the descending colon. Status post right adrenalectomy. The appendix appears normal. This is read by the radiologist and reviewed by me. Emergency Department Course and Treatment: 35-year-old male with abdominal pain. Treated with IV fluids, Dilaudid and Zofran. CT and labs being obtained. Repeat exam at 10:19 PM patient is doing well. Abdomen is benign. He had I went over his test results. Treatment Plan: Fluids and rest. Imodium for the diarrhea. Tylenol and Motrin for pain. Follow-up with his primary care physician. Return if feeling worse. Disposition: Discharge Impression: Acute abdominal pain secondary to colitis Diarrhea Status post right adrenal resection This note was generated with [employer] software. It may contain incorrect words, spelling, and punctuation that were not noted in review of the chart prior to signing ED Disposition - Plan for ED Patient: Referrals: Care Physician,No Primary [Primary Care Provider] -
[2020-10-10] MEDS: HYDROmorphone 1 MG/ML Syringe IV (20:29)
[2020-10-10] MEDS: 0.9% Normal Saline 1,000 ML 1000 ML IV (20:29)
[2020-10-10] MEDS: Ondansetron 4 MG/2 ML Vial IV (20:29)
[2020-10-10 20:46] LABS: Absolute Lymphocyte Count 1.29 X10^3/uL (0.83-4.51); Absolute Neutrophil Count 4.8 X10^3/uL (2.0-7.7); Basophil# 0.07 X10^3/uL; Basophil% 0.9 % (0-1); Eosinophil# 0.19 X10^3/uL; Eosinophils% 2.5 % (0-5); Hematocrit 42.2 % (40-54); Hemoglobin 12.8 g/dL (13.0-16.5); Lymphocyte # 1.29 X10^3/ul (4.0); Mean Corp Hgb Conc 30.3 g/dL (32-36); Mean Corpuscular Hgb 24.7 pg (27.0-32.0); Mean Corpuscular Volume 81.3 fL (80-94); Mean Platelet Vol. 10.4 fl (6.2-12.0); Monocyte# 1.18 X10^3/uL; Monocyte% 15.5 % (0-10); NRBC Flagged by Analyzer 0 % (0-5); Neutrophil # 4.84 X10^3/uL (2.7-7.7); Neutrophil % 63.7 % (47-70); Platelet Count 302 K/mm3 (150-450); RBC Distribution Width CV 14.6 % (11.6-14.6); RBC Distribution Width SD 42.4 fl (35.1-43.9); Red Blood Count 5.19 M/mm3 (4.6-6.2); White Blood Count 7.6 K/mm3 (4.4-11.0)
[2020-10-10 21:03] LABS: ALB/GLOB Ratio 0.7 RATIO (0.9-2.4); AST(SGOT) 32 U/L (15-37); Alanine Aminotransfer ALT/SGPT 52 U/L (16-61); Albumin, Serum 3.4 g/dL (3.2-5.0); Alkaline Phosphatase 111 U/L (45-117); Anion Gap 4 (5-15); BUN 13 mg/dL (7-18); BUN/Creat Ratio 10.2 RATIO (10-20); Calcium,Total 9.9 mg/dL (8.5-10.1); Chloride 110 mmol/L (98-107); Creatinine, Serum 1.28 mg/dL (0.70-1.30); EST Glomerular Filtration Rate 68 mL/min (>60); Est Glom Filt Rate - Afr Amer 82 mL/min (>60); Estimated Creatinine Clearance 84.97 ml/min; Globulin 4.6 g/dL (2.2-4.2); Glucose 109 mg/dL (74-106); Lipase 234 U/L (73-393); Potassium 4.3 mmol/L (3.5-5.1); Sodium Level 140 mmol/L (136-145)
[2020-10-10 21:13] LABS: Bacteria 0 SEEN /hpf (None Seen); Mucous, Urine 0 SEEN /hpf (<or=2+); Red Blood Cells-Urine 0 SEEN /hpf (0-5)
[2020-10-10 21:22] LABS: Color, Urine Yellow (Yellow); Glucose, Dipstick Normal (Normal); Ketone-Dipstick 5 mg/dl (Negative); Leukocyte Esterase-Dipstick 25 /ul (Negative); Nitrite-Dipstick Negative (Negative); Occult Blood-Urine 10 /ul (Negative); Protein-Dipstick 100 mg/dl (Negative); Specific Gravity, Urine 1.025 (1.002-1.030); Urine Bilirubin Dipstick Negative (Negative); Urine Clarity Clear (Clear); Urine Urobilinogen Normal (Normal)
[2020-10-10 21:34] LABS: Calcium Oxalate Crystals Ur RARE /hpf (<or=2+); Squamous Epithelial Cells - UA 0-5 SEEN /hpf (0-5); White Blood Cells 0-5 SEEN /hpf (0-5)
--- NOTE | 2020-10-10 22:24 | ED.DEP ---
ED Disposition - Plan for ED Patient: Disposition: Home or Assisted Living Instructions: ED Unknown Causes of Abdominal ... Referrals: Care Physician,No Primary [Primary Care Provider] - 3-5 Days if not improving Additional Instructions: Plenty of fluids and rest to prevent dehydration. Imodium as needed for the diarrhea. Tylenol and Motrin for pain. Follow-up with your doctor if not improving. Your labs and CAT scan tonight were basically unremarkable. There was some mild inflammation of your colon secondary to all the diarrhea.
== END 2020-10-10 22:32 | disposition home or self-care (01) ==
PROVIDERS: Emergency Provider Emergency Medicine
DX: K52.9 Noninfective gastroenteritis and colitis, unspecified (principal); Z98.890 Other specified postprocedural states; I10 Essential (primary) hypertension; D64.9 Anemia, unspecified; Z87.442 Personal history of urinary calculi; Z79.899 Other long term (current) drug therapy; F17.200 Nicotine dependence, unspecified, uncomplicated
CPT/HCPCS: 74177; 80053; 81001; 83690; 85025; 96361; 96374; 96375; 99284; J7030; Q9967; A4216; J2405

== ENCOUNTER 2020-10-12 07:14 | Emergency (ER) | payer MEDICAID, SELFPAY ==
[2020-10-12 07:15] VITALS: BP 146/72; PULSE 69; RESP 18; TEMP 36.6; O2SAT 98; BMI 40.4
[2020-10-12 08:30] VITALS: BP 146/72; PULSE 69; RESP 18; TEMP 36.6; O2SAT 98
[2020-10-12 08:38] LABS: Absolute Lymphocyte Count 1.41 X10^3/uL (0.83-4.51); Absolute Neutrophil Count 2.9 X10^3/uL (2.0-7.7); Basophil# 0.04 X10^3/uL; Basophil% 0.7 % (0-1); Eosinophil# 0.16 X10^3/uL; Eosinophils% 2.9 % (0-5); Hematocrit 35.3 % (40-54); Hemoglobin 10.9 g/dL (13.0-16.5); Lymphocyte # 1.41 X10^3/ul (4.0); Lymphocyte % 25.6 % (19-41); Mean Corp Hgb Conc 30.9 g/dL (32-36); Mean Corpuscular Hgb 24.7 pg (27.0-32.0); Mean Platelet Vol. 10.7 fl (6.2-12.0); Monocyte# 0.89 X10^3/uL; Monocyte% 16.2 % (0-10); NRBC Flagged by Analyzer 0 % (0-5); Neutrophil # 2.89 X10^3/uL (2.7-7.7); Neutrophil % 52.6 % (47-70); Platelet Count 277 K/mm3 (150-450); RBC Distribution Width CV 14.5 % (11.6-14.6); RBC Distribution Width SD 41.9 fl (35.1-43.9); Red Blood Count 4.41 M/mm3 (4.6-6.2); White Blood Count 5.5 K/mm3 (4.4-11.0)
[2020-10-12] MEDS: 0.9% Normal Saline 1,000 ML 1000 ML IV (08:41)
[2020-10-12] MEDS: Ketorolac 15 MG/ML Vial IV (08:41)
[2020-10-12] MEDS: Ondansetron 4 MG/2 ML Vial IV (08:41)
[2020-10-12 08:58] LABS: ALB/GLOB Ratio 0.8 RATIO (0.9-2.4); AST(SGOT) 55 U/L (15-37); Alanine Aminotransfer ALT/SGPT 50 U/L (16-61); Albumin, Serum 3.1 g/dL (3.2-5.0); Alkaline Phosphatase 93 U/L (45-117); Anion Gap 3 (5-15); BUN 15 mg/dL (7-18); BUN/Creat Ratio 13.4 RATIO (10-20); Calcium,Total 8.6 mg/dL (8.5-10.1); Chloride 111 mmol/L (98-107); Creatinine, Serum 1.12 mg/dL (0.70-1.30); EST Glomerular Filtration Rate 79 mL/min (>60); Est Glom Filt Rate - Afr Amer 95 mL/min (>60); Estimated Creatinine Clearance 97.11 ml/min; Globulin 3.8 g/dL (2.2-4.2); Glucose 90 mg/dL (74-106); Lipase 194 U/L (73-393); Potassium 5.1 mmol/L (3.5-5.1); Protein, Total 6.9 g/dL (6.4-8.2); Sodium Level 138 mmol/L (136-145)
[2020-10-12 11:00] VITALS: BP 133/71; PULSE 70; PULSE 78; RESP 20; TEMP 36.6; O2SAT 98
--- NOTE | 2020-10-12 11:08 | ED.RN ---
THIS RN ASSUMES CARE
--- NOTE | 2020-10-12 11:23 | ED.DCSUM_ITS ---
- ER Visit Summary Date of Service: 10/12/20 Chief Complaint: Abdominal pain and diarrhea History of Present Illness: The patient is a [address] Loredo at [facility]. He reports she has diarrhea that began 5 days ago. Reports that it was occurring approximate 20 times per day until yesterday and has had 2 episodes since. He relates this to eating a large amount of cheese. She states that it did not seem to be responsive to Imodium. Patient complains of a sharp, cramping abdominal pain is 910 worst and 6 out of 10 currently. Is worsened by having a bowel movement. Is relieved by nothing. He reports he has been nauseated and vomited twice. There is been no blood in his emesis. Has had dry heaves this morning. Reports that 5 days ago he had a fever to 102 degrees. He has not had a fever since. Physical Examination: Vitals: Stable. Afebrile. General: Well-nourished and well-developed. Head: Normocephalic atraumatic. Neck: Supple, no lymphadenopathy. No JVD. Nontender. Cardiovascular: Regular rate and rhythm. No murmurs. Respiratory: No respiratory distress. Clear to auscultation bilaterally. Abdominal: Soft, mild diffuse tenderness to palpation, nondistended, normal bowel sounds. No guarding, rebound, or peritoneal signs. Back: Nontender. Extremities: Nontender, no edema. Skin: Normal color, no rash. Neurologic: Alert and oriented ?3. Cranial nerves II through XII are intact. Normal strength and sensation. Psych: Normal affect. Test Results: CBC shows an H&H 10.9 35.3, monocytes of 16, intragranulocytes of 2.0%. Chem-7 shows a chloride of 111. LFTs show an AST of 55. Lipase is normal. Stool for C. difficile is negative. Enteric pathogens does show Campylobacter. Emergency Department Course and Treatment: Patient had an IV placed. He was given a liter normal saline. Is given Toradol and Zofran IV. He has had no vomiting while here. I had prolonged discussion with him about the results of the enteric pathogens. We discussed that this should be self-limited. However, if he has had symptoms for more than a week that we could do antibiotics. He does want to be placed on antibiotics. This was reviewed on up-to-date. He was given Zithromax p.o. Treatment Plan: Patient will be discharged on 2 more days of Zithromax. Given Zofran for his nausea. Instructed to follow-up his primary care physician in 3 to 5 days if not improving. Return to the emergency department for any worsening symptoms. Disposition: To home in improved and stable condition. Impression: 1. Diarrhea due to Campylobacter. This note was generated with [employer] dictation software. It may contain incorrect words, spelling, and punctuation that were not noted in review of the chart prior to signing ED Disposition - Plan for ED Patient: Instructions: ED Diarrhea, Bacterial (Adult) Prescriptions: Azithromycin [Zithromax] 500 mg PO DAILY #2 tablet Ondansetron [Zofran Odt] 4 mg PO Q8H PRN PRN #10 tablet PRN Reason: Nausea Referrals: Mansfield Beers,Barbara [Other] - 3-5 Days if not improving
[2020-10-12 12:26] VITALS: BP 113/79; PULSE 66; RESP 16; O2SAT 99
[2020-10-12] MEDS: Azithromycin 250 MG Tablet 500 MG PO (12:26)
== END 2020-10-12 12:28 | disposition home or self-care (01) ==
LOC: ED 07:52
PROVIDERS: Emergency Provider Emergency Medicine
DX: A04.5 Campylobacter enteritis (principal); G47.33 Obstructive sleep apnea (adult) (pediatric); F31.81 Bipolar II disorder; Z79.899 Other long term (current) drug therapy; F17.200 Nicotine dependence, unspecified, uncomplicated
CPT/HCPCS: 80053; 83690; 85025; 87493; 87506; 96361; 96374; 96375; 99284; J7030; A4216; J2405

== ENCOUNTER 2020-11-25 07:24 | Observation (INO) | payer MEDICAID, SELFPAY ==
[2020-11-25] VITALS (10 sets, daily range): BP systolic 109–140; BP diastolic 54–80; PULSE 44–63; RESP 16–18; TEMP 36.1–36.9; O2SAT 95–100; BMI 41.5; BMI 41.2
--- NOTE | 2020-11-25 07:38 | RAD_ITS ---
STUDY: X-RAY CHEST REASON FOR EXAM: Male, 35 years old. Chest pain TECHNIQUE: Single AP portable view of the chest. COMPARISON: Comparison is made with prior study dated 04/09/2020. FINDINGS: EKG electrodes are seen. The lungs are clear and expanded. There is no demonstrated pleural abnormality. There is borderline cardiomegaly. Normal mediastinum and ina. Normal visualized pulmonary arteries. Normal visualized aortic arch and descending thoracic aorta. Normal visualized thoracic spine. Normal visualized ribs, clavicles, and shoulders. Large hiatal hernia. RAD/Chest 1 View (Portable) IMPRESSION: Large hiatal hernia. The lungs are clear. Electronically Signed: Chase Jenkins MD at 8:25 EDT , Service support ,
--- NOTE | 2020-11-25 07:38 | EKG12_ITS ---
Test Reason : CP Blood Pressure : / mmHG Vent. Rate : 057 BPM Atrial Rate : 057 BPM P-R Int : 174 ms QRS Dur : 090 ms QT Int : 404 ms P-R-T Axes : 031 014 048 degrees QTc Int : 393 ms Sinus bradycardia Otherwise normal ECG Confirmed by AURORA BOWLING, LISET ([id number]), acquisition editor JACEY GILL ([id number]) on 11/29/2020 9:35:09 AM Referred By: SUSAN Confirmed By:LISET SIMON MD
--- NOTE | 2020-11-25 07:39 | ED.VIS.CHEST ---
HPI History of Present Illness Chief Complaint: Chest Pain Informant: patient Onset/Context/Timing Onset: Today Activity at onset: gradual Timing: Continuous Quality: Positive for Heaviness Current Severity: Moderate Maximum Severity: Moderate Narrative Narrative: Patient present secondary to chest pain. He states he was at work this morning around 6 AM when he developed chest heaviness. Pain did radiate down into his left arm. He also complains of shortness of breath and some lightheadedness. 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 He had been on Eliquis until approximately 1 year ago when he was found to have hemoglobin of 3. He has been off anticoagulants since that time. Patient does report family history of heart disease in multiple family members. [facility] Medical History ADHD Bipolar disorder History of DVT (deep vein thrombosis) Obstructive sleep apnea Home Medications Quetiapine Fumarate [Seroquel Xr] 400 mg PO QHS 04/08/20 [History Last Taken 04/07/20] fluoxetine 40 mg PO QHS 04/08/20 [History Last Taken 04/07/20] gabapentin 300 mg PO BID PRN 04/08/20 [History Last Taken Unknown] gabapentin 300 mg PO QHS 04/08/20 [History Last Taken 04/07/20] oxcarbazepine 300 mg PO DAILY 04/08/20 [History Last Taken 04/07/20] oxcarbazepine 900 mg PO QHS 04/08/20 [History Last Taken 04/07/20] lisinopril 2.5 mg PO DAILY #30 tab 04/10/20 [Rx Last Taken Unknown] metoprolol tartrate 12 mg PO BID #60 tab 04/10/20 [Rx Last Taken Unknown] pantoprazole 40 mg PO DAILY #30 tab 04/10/20 [Rx Last Taken Unknown] azithromycin 500 mg PO DAILY #2 tablet 10/12/20 [Rx Last Taken Unknown] ondansetron 4 mg PO Q8H PRN PRN #10 tablet 10/12/20 [Rx Last Taken Unknown] Allergy/AdvReac Type Severity Reaction Status Date / Time cinnamon Allergy Anaphylaxis Verified 10/12/20 07:18 codeine Allergy PT UNSURE Verified 11/25/20 07:25 OF REACTION Social History Smoking Status: Current every day smoker ROS ROS ED Constitutional Constitutional ED: Denies chills or fever(s) Eyes Eyes: Denies change in vision ENT ENT ED: Denies sore throat Cardiovascular Cardiovascular: Reports chest pain Respiratory/Chest Respiratory/Chest: Reports dyspnea; Denies cough Gastrointestinal Gastrointestinal: Denies abdominal pain, diarrhea, nausea or vomiting Genitourinary Genitourinary ED: Denies dysuria Musculoskeletal Musculoskeletal: Denies back pain Integumentary Denies rash Neurologic Neurologic: Denies headache(s) or weakness Psychiatric Psychiatric: Denies anxiety or depression Endocrine Endocrinology: Denies polydipsia or polyuria Allergic/Immunologic Allergic/Immunologic ED: Denies urticaria EXAM Physical Exam Const Vital Signs: 11/25/20 07:25 11/25/20 07:49 11/25/20 07:50 Temperature 97.0 F L Temperature Source Temporal Pulse Rate 61 Respiratory Rate 18 Respiratory Effort Normal Non-Labored Blood Pressure 140/80 H Blood Pressure Mean 100 Pulse Ox 99 98 Oxygen Delivery Method Room Air Room Air 11/25/20 08:58 Temperature Temperature Source Pulse Rate 47 L Respiratory Rate 18 Respiratory Effort Blood Pressure 110/67 Blood Pressure Mean 81 Pulse Ox 95 Oxygen Delivery Method Room Air Positive well nourished and well developed General Appearance ED: well developed HEENT Reports normocephalic and head/scalp atraumatic Eyes PERRL and EOMs intact bilaterally Neck supple Chest Wall inspection of chest normal Chest Narrative: Mild anterior chest wall tenderness. No crepitus. Resp normal respiratory effort and clear to auscultation bilaterally Cardio regular rate and regular rhythm GI normal to inspection, nondistended, normoactive bowel sounds Palpation: soft Back/Spine no CVA tenderness Extremity normal to inspection Neuro oriented x3 and no sensory deficits noted Sensorium / Orientation: alert Motor Exam: strength 5/5 throughout Psych mental status grossly normal Skin no rashes or lesions noted Heart Score History: Moderately Suspicious ECG: Normal Age: </= 45 years Risk Factors: No Risk Factors Troponin: </= Normal Limit Score: 1 MDM MDM MDM Narrative Medical decision making narrative: Patient given aspirin on arrival along with morphine and Zofran. Blood pressure was only 110 so I did not give nitroglycerin. Lab Data Attestation: I reviewed the patient's lab results. Labs: Laboratory Results - last 24 hr 11/25/20 11/25/20 11/25/20 07:36 07:36 07:36 WBC 8.0 RBC 4.74 Hgb 11.0 L Hct 36.9 L MCV 77.8 L MCH 23.2 L MCHC 29.8 L RDW Std Deviation 42.1 RDW Coeff of Michael 14.9 H Plt Count 245 MPV 11.1 Immature Gran % (Auto) 0.400 Neut % (Auto) 67.3 Lymph % (Auto) 22.8 Russell % (Auto) 7.4 Eos % (Auto) 1.6 Baso % (Auto) 0.5 Absolute Neuts (auto) 5.4 Absolute Lymphs (auto) 1.81 Nucleated RBC % 0 D-Dimer Quant (PE/DVT) Cancelled Sodium Cancelled Potassium Cancelled Chloride Cancelled Carbon Dioxide Cancelled Anion Gap Cancelled BUN Cancelled Creatinine Cancelled Estim Creat Clear Calc Cancelled Est GFR (MDRD) Af Amer Cancelled Est GFR (MDRD) Non-Af Cancelled BUN/Creatinine Ratio Cancelled Glucose Cancelled Calcium Cancelled Troponin I Cancelled 11/25/20 11/25/20 08:25 08:25 WBC RBC Hgb Hct MCV MCH MCHC RDW Std Deviation RDW Coeff of Michael Plt Count MPV Immature Gran % (Auto) Neut % (Auto) Lymph % (Auto) Russell % (Auto) Eos % (Auto) Baso % (Auto) Absolute Neuts (auto) Absolute Lymphs (auto) Nucleated RBC % D-Dimer Quant (PE/DVT) 0.42 Sodium 142 Potassium 4.3 Chloride 112 H Carbon Dioxide 29.0 Anion Gap 1 L BUN 16 Creatinine 1.02 Estim Creat Clear Calc 106.63 Est GFR (MDRD) Af Amer 106 Est GFR (MDRD) Non-Af 88 BUN/Creatinine Ratio 15.7 Glucose 123 H Calcium 8.3 L Troponin I < 0.015 Radiography Chest X-Ray - ED: 1 View, Read by ED Physician, Normal, Heart, Lungs and Mediastinum Diagnostic Testing: Radiology Impression Chest X-Ray 11/25/20 07:38 IMPRESSION: Large hiatal hernia. The lungs are clear. Electronically Signed: Chase Jenkins MD at 8:25 EDT , Service support , EKG Initial EKG: Interpretation: Sinus Bradycardia (Sinus bradycardia at 57. No acute ST change.) Treatment and Re-Evaluation Comments:: Patient was given aspirin and morphine on arrival. On repeat evaluation patient is resting. He states his pain is significantly improved but not completely resolved. Heart rate has been in the mid to low 40s with sinus bradycardia. Patient does have strong family history and a concerning story. I did recommend observation for cycling of cardiac enzymes and possible stress test. While he did have an echocardiogram on his last admission it does not appear that he has had a stress test or a heart cath. I will speak with the hospitalist. Discharge Plan Triage Chief Complaint: Chest Pain ED Provider: Rachael Ha Dx/Rx/DC Orders Clinical Impression: Chest pain Prescriptions: No Action oxcarbazepine 300 MG tablet 300 mg PO DAILY RF: 0 oxcarbazepine 300 MG tablet 900 mg PO QHS RF: 0 gabapentin 300 MG capsule 300 mg PO QHS RF: 0 fluoxetine 20 MG capsule 40 mg PO QHS RF: 0 gabapentin 300 MG capsule 300 mg PO BID PRN (Reason: mood) RF: 0 Quetiapine Fumarate [Seroquel Xr] 400 MG Tab.Sr.24h 400 mg PO QHS RF: 0 pantoprazole 40 MG tablet 40 mg PO DAILY Qty: 30 RF: 0 lisinopril 2.5 MG tablet 2.5 mg PO DAILY Qty: 30 RF: 0 metoprolol tartrate 25 MG tablet 12 mg PO BID Qty: 60 RF: 0 ondansetron 4 MG tablet 4 mg PO Q8H PRN PRN (Reason: Nausea) Qty: 10 RF: 0 azithromycin 500 MG tablet 500 mg PO DAILY Qty: 2 RF: 0 Referrals: GILMER PEÑALOZA [Other] Disposition Disposition: Acute Care Hospital [facility]
[2020-11-25] MEDS: 0.9% Normal Saline 1,000 ML 150 ML IV ×3 (07:46→23:53)
[2020-11-25] MEDS: Aspirin 81 MG TAB.CHEW 324 MG PO (07:46)
[2020-11-25] MEDS: Ondansetron 4 MG/2 ML Vial IV (07:47)
[2020-11-25] MEDS: Morphine 4 MG/ML Syringe IV (07:47)
[2020-11-25 07:52] LABS: Absolute Lymphocyte Count 1.81 X10^3/uL (0.83-4.51); Absolute Neutrophil Count 5.4 X10^3/uL (2.0-7.7); Basophil# 0.04 X10^3/uL; Basophil% 0.5 % (0-1); Eosinophil# 0.13 X10^3/uL; Eosinophils% 1.6 % (0-5); Hematocrit 36.9 % (40-54); Lymphocyte # 1.81 X10^3/ul (0.83-4.51); Lymphocyte % 22.8 % (19-41); Mean Corp Hgb Conc 29.8 g/dL (32-36); Mean Corpuscular Hgb 23.2 pg (27.0-32.0); Mean Corpuscular Volume 77.8 fL (80-94); Mean Platelet Vol. 11.1 fl (6.2-12.0); Monocyte# 0.59 X10^3/uL; Monocyte% 7.4 % (0-10); NRBC Flagged by Analyzer 0 % (0-5); Neutrophil # 5.35 X10^3/uL (2.7-7.7); Neutrophil % 67.3 % (47-70); Platelet Count 245 K/mm3 (150-450); RBC Distribution Width CV 14.9 % (11.6-14.6); RBC Distribution Width SD 42.1 fl (35.1-43.9); Red Blood Count 4.74 M/mm3 (4.6-6.2)
[2020-11-25 08:56] LABS: Anion Gap 1 (5-15); BUN 16 mg/dL (7-18); BUN/Creat Ratio 15.7 RATIO (10-20); Calcium,Total 8.3 mg/dL (8.5-10.1); Chloride 112 mmol/L (98-107); Creatinine, Serum 1.02 mg/dL (0.70-1.30); EST Glomerular Filtration Rate 88 mL/min (>60); Est Glom Filt Rate - Afr Amer 106 mL/min (>60); Estimated Creatinine Clearance 106.63 ml/min; Glucose 123 mg/dL (74-106); Potassium 4.3 mmol/L (3.5-5.1); Sodium Level 142 mmol/L (136-145)
[2020-11-25 09:07] LABS: D-Dimer Quantitative (DVT/PE) 0.42 FEU/ug/m (0.27-0.49)
--- NOTE | 2020-11-25 09:37 | EKG12_ITS ---
Test Reason : REPEAT FOR CP ADMIT Blood Pressure : / mmHG Vent. Rate : 052 BPM Atrial Rate : 052 BPM P-R Int : 180 ms QRS Dur : 090 ms QT Int : 446 ms P-R-T Axes : 019 013 040 degrees QTc Int : 414 ms Sinus bradycardia Otherwise normal ECG Confirmed by AURORA BOWLING, LISET ([id number]), movie editor JACEY GILL ([id number]) on 11/29/2020 9:35:32 AM Referred By: EVELYN Confirmed By:LISET SIMON MD
--- NOTE | 2020-11-25 13:58 | PCM.HP.STD ---
HPI - General General Date of Admission: 11/25/20 HPI Narrative VINNIE OLIVAREZ, is a 35 M who presents with chest pain. Patient was at work when his chest pain developed. She was midsternal and went down his left arm. Also associate with diaphoresis, lightheadedness and shortness of breath. Patient never had chest pain like this before. Presented emergency room and had a work-up that was unremarkable. The hospitalist service was contacted for admission for chest pain evaluation. [facility] Medical History ADHD Bipolar disorder History of DVT (deep vein thrombosis) Obstructive sleep apnea Home Medications Quetiapine Fumarate [Seroquel Xr] 400 mg PO QHS 04/08/20 [History Last Taken 04/07/20] fluoxetine 40 mg PO QHS 04/08/20 [History Last Taken 04/07/20] gabapentin 300 mg PO BID PRN 04/08/20 [History Last Taken Unknown] gabapentin 300 mg PO QHS 04/08/20 [History Last Taken 04/07/20] oxcarbazepine 300 mg PO DAILY 04/08/20 [History Last Taken 04/07/20] oxcarbazepine 900 mg PO QHS 04/08/20 [History Last Taken 04/07/20] lisinopril 2.5 mg PO DAILY #30 tab 04/10/20 [Rx Last Taken Unknown] metoprolol tartrate 12 mg PO BID #60 tab 04/10/20 [Rx Last Taken Unknown] pantoprazole 40 mg PO DAILY #30 tab 04/10/20 [Rx Last Taken Unknown] ondansetron 4 mg PO Q8H PRN PRN #10 tablet 10/12/20 [Rx Last Taken Unknown] Allergy/AdvReac Type Severity Reaction Status Date / Time cinnamon Allergy Anaphylaxis Verified 10/12/20 07:18 codeine Allergy PT UNSURE Verified 11/25/20 07:25 OF REACTION Social History Smoking Status: Current every day smoker ROS ROS Narrative All review of systems were negative except as mentioned above in the history of present illness and the other review of systems. Vital Signs Vital Signs Vital Signs: 11/25/20 07:25 11/25/20 07:49 11/25/20 07:50 Temperature 36.1 C L Temperature Source Temporal Pulse Rate 61 Respiratory Rate 18 Respiratory Effort Normal Non-Labored Blood Pressure 140/80 H Blood Pressure Mean 100 Pulse Ox 99 98 Oxygen Delivery Method Room Air Room Air 11/25/20 08:58 11/25/20 09:45 11/25/20 11:13 Temperature 36.6 C Temperature Source Oral Pulse Rate 47 L 44 L 52 L Respiratory Rate 18 18 18 Respiratory Effort Blood Pressure 110/67 109/66 114/54 L Blood Pressure Mean 81 80 74 Pulse Ox 95 100 97 Oxygen Delivery Method Room Air Room Air Room Air Physical Exam Const alert HEENT normocephalic Resp normal respiratory effort and clear to auscultation bilaterally Cardio regular rate, regular rhythm, S1 normal heart sound and S2 normal heart sound GI normal to inspection, nondistended, normoactive bowel sounds, non-tender and non-distended Neuro Sensorium / Orientation: awake and alert Psych affect normal Lab / Micro Data Attestation: I reviewed the patient's lab results. Result Diagrams: 11/25/20 07:36 11/25/20 08:25 Labs: Laboratory Results - last 24 hr 11/25/20 11/25/20 11/25/20 07:36 07:36 07:36 WBC 8.0 RBC 4.74 Hgb 11.0 L Hct 36.9 L MCV 77.8 L MCH 23.2 L MCHC 29.8 L RDW Std Deviation 42.1 RDW Coeff of Michael 14.9 H Plt Count 245 MPV 11.1 Immature Gran % (Auto) 0.400 Neut % (Auto) 67.3 Lymph % (Auto) 22.8 Mora % (Auto) 7.4 Eos % (Auto) 1.6 Baso % (Auto) 0.5 Absolute Neuts (auto) 5.4 Absolute Lymphs (auto) 1.81 Nucleated RBC % 0 D-Dimer Quant (PE/DVT) Cancelled Sodium Cancelled Potassium Cancelled Chloride Cancelled Carbon Dioxide Cancelled Anion Gap Cancelled BUN Cancelled Creatinine Cancelled Estim Creat Clear Calc Cancelled Est GFR (MDRD) Af Amer Cancelled Est GFR (MDRD) Non-Af Cancelled BUN/Creatinine Ratio Cancelled Glucose Cancelled Calcium Cancelled Troponin I Cancelled 05/14/21 05/14/21 05/14/21 08:25 08:25 11:54 WBC RBC Hgb Hct MCV MCH MCHC RDW Std Deviation RDW Coeff of Michael Plt Count MPV Immature Gran % (Auto) Neut % (Auto) Lymph % (Auto) Mora % (Auto) Eos % (Auto) Baso % (Auto) Absolute Neuts (auto) Absolute Lymphs (auto) Nucleated RBC % D-Dimer Quant (PE/DVT) 0.42 Sodium 142 Potassium 4.3 Chloride 112 H Carbon Dioxide 29.0 Anion Gap 1 L BUN 16 Creatinine 1.02 Estim Creat Clear Calc 106.63 Est GFR (MDRD) Af Amer 106 Est GFR (MDRD) Non-Af 88 BUN/Creatinine Ratio 15.7 Glucose 123 H Calcium 8.3 L Troponin I < 0.015 < 0.015 Radiology Impression Chest X-Ray 11/25/20 07:38 IMPRESSION: Large hiatal hernia. The lungs are clear. Electronically Signed: Chase Jenkins MD at 8:25 EDT , Service support , Assessment & Plan Assessment/Plan (1) Chest pain: QUALIFIERS: Chest pain type: unspecified Qualified Code(s): R07.9 - Chest pain, unspecified PLAN: 1. Chest pain No prior history of CAD. HANH score of 1 Suspect this may be musculoskeletal as there is a reproducible component. Plan for a nuclear treadmill stress test today. Based on the results, patient will either be discharged or will have cardiology consult to for evaluation for left heart catheterization. 2. VTE prophylaxis: Low risk given observation status. Visit Charges OBSV E&M: 10916 Initial observation care L2
--- NOTE | 2020-11-25 14:55 | PCM.DC ---
Discharge Instructions Diet Discharge Diet: No restrictions Activity Discharge Activity: Return to Normal Activity Dressing / Incision Call your doctor if you observe: Shortness of breath Follow Up Care Test Results: Test results from this visit will be discussed in further detail at your follow-up appointment, if applicable. Discharge Plan Admission Admit Date/Time: 11/25/20 09:35 Attending Provider: Tyler Martinez Instructions Patient Instructions: ED Chest Pain, Noncardiac Discharge Orders/Prescriptions Prescriptions: Continued oxcarbazepine 300 MG tablet 300 mg PO DAILY RF: 0 oxcarbazepine 300 MG tablet 900 mg PO QHS RF: 0 gabapentin 300 MG capsule 300 mg PO QHS RF: 0 fluoxetine 20 MG capsule 40 mg PO QHS RF: 0 gabapentin 300 MG capsule 300 mg PO BID PRN (Reason: mood) RF: 0 Quetiapine Fumarate [Seroquel Xr] 400 MG Tab.Sr.24h 400 mg PO QHS RF: 0 ondansetron 4 MG tablet 4 mg PO Q8H PRN PRN (Reason: Nausea) Qty: 10 RF: 0 diphenhydramine HCl [Benadryl] 25 mg Capsule 50 mg PO QHS PRN (Reason: Sleep) RF: 0 ibuprofen [IBU] 600 mg tablet 600 mg PO Q8H PRN (Reason: Pain) RF: 0 pantoprazole 40 MG tablet,delayed release (DR/EC) 40 mg PO DAILY RF: 0 lisinopril 2.5 MG tablet 2.5 mg PO DAILY RF: 0 metoprolol tartrate 25 MG tablet 25 mg PO BID RF: 0 Referrals / Follow Up: GILMER PEÑALOZA [Other] GILMER PEÑALOZA [Other] Disposition Disposition (needs filled in before D/C Order can be placed): Home, self care
[2020-11-25] MEDS: 0.9% Saline Lock 10 ML Syringe IV (15:52)
[2020-11-25] MEDS: oxyCODONE 5 MG Tablet 10 MG PO (15:52)
--- NOTE | 2020-11-25 17:22 | STRESSREP ---
Stress Test Report Pharmacologic myocardial perfusion stress test. Indication: 35-year-old patient, with symptoms of chest pain, smoker and her family history of CAD. Patient had history of obstructive sleep apnea. Stress protocol: Resting EKG demonstrates. Normal sinus rhythm. Patient exercised according to standard [facility] protocol for a total of 3 minutes and 58 seconds, unable to reach his target heart rate due to symptoms of shortness of breath And test was terminated and underwent regadenoson sestamibi study. 0.4 mg of regadenoson was infused per usual protocol followed by rapid intravenous saline flush injection continuous EKG monitoring was performed. The maximum heart rate attained was 106 bpm which was [57]% of maximum predicted heart . Stress EKG showed[, no significant change from the resting EKG, with maximum heart rate of 106 bpm. Arrhythmia: No arrhythmia demonstrated Symptoms: Patient had no symptoms of chest pain Blood pressure at rest: [112/70 mmHg, blood pressure at the end of stress: 134/72 mmHg] Myocardial perfusion protocol. [14 mCi ]of Technetium 99m Sestamibi was injected at rest. [ 0.4 mg ]of Regadenoson was infused per usual protocol peak infusion[44 mCi ]of Technetium 99m sestamibi was injected. Stress images were obtained stress and rest images were reconstructed and compared in the short axis vertical and horizontal long axis. Gated images were also obtained Perfusion SPECT analysis: Review of the images demonstrate normal uptake of sestamibi at rest, post stress images demonstrate similar uptake of sestamibi to the resting images, homogeneous tracer uptake With no evidence of reversible myocardial ischemia. Reduced tracer uptake in the inferior myocardium consistent with prior inferior RI. Gated SPECT analysis: The gated ejection fraction is [64 %]. Normal left ventricle wall motion and normal LV systolic function Conclusion: Mild to moderate anterior reversible myocardial ischemia, in the LAD distribution Normal LV systolic function Maria G Castaneda MD,FACC,[facility] [place]
[2020-11-25] MEDS: QUEtiapine 100 MG Tablet 200 MG PO (22:07)
[2020-11-25] MEDS: FLUoxetine 20 MG Capsule 40 MG PO (22:08)
[2020-11-25] MEDS: Gabapentin 300 MG Capsule PO (22:09)
[2020-11-25] MEDS: OXcarbazepine 300 MG Tablet 900 MG PO (22:09)
[2020-11-26] VITALS (12 sets, daily range): BP systolic 121–143; BP diastolic 72–86; PULSE 50–72; RESP 16–18; TEMP 36.6–36.8; O2SAT 95–100
--- NOTE | 2020-11-26 05:55 | EKG12_ITS ---
Test Reason : AM EKG Blood Pressure : / mmHG Vent. Rate : 053 BPM Atrial Rate : 053 BPM P-R Int : 164 ms QRS Dur : 090 ms QT Int : 422 ms P-R-T Axes : 033 023 049 degrees QTc Int : 395 ms Sinus bradycardia Otherwise normal ECG When compared with ECG of 25-NOV-2020 11:19, MANUAL COMPARISON REQUIRED, DATA IS UNCONFIRMED Confirmed by AURORA BOWLING, LISET ([id number]), avid editor JACEY GILL ([id number]) on 11/29/2020 9:42:23 AM Referred By: EVELYN Confirmed By:LISET SIMON MD
[2020-11-26] MEDS: Aspirin 81 MG TAB.CHEW PO (06:30)
[2020-11-26] MEDS: 0.9% Normal Saline 1,000 ML 150 ML IV ×2 (07:23→10:16)
[2020-11-26 07:49] LABS: Cholesterol 212 mg/dL (200); High Density Lipoprotein 26 mg/dL; Triglycerides 371 mg/dL; Very Low Density Lipoprotein 74 mg/dL (5-40)
[2020-11-26] MEDS: Pantoprazole Sodium 40 MG Tablet PO (10:14)
[2020-11-26] MEDS: Lisinopril 2.5 MG Tablet PO (10:14)
[2020-11-26] MEDS: OXcarbazepine 300 MG Tablet PO (10:14)
--- NOTE | 2020-11-26 13:22 | PCM.CONS.C ---
Assessment & Plan Assessment/Plan (1) Chest pain: QUALIFIERS: Chest pain type: unspecified Qualified Code(s): R07.9 - Chest pain, unspecified (2) Acute anemia: (3) Morbid obesity: PLAN: 35-year-old patient presented with retrosternal chest pain, has significant family history of CAD and a smoker. 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 Bedside evaluation his symptoms of chest pain described as retrosternal with no specific radiation Cardiac evaluation by EKG showed underlying normal sinus Further assessment by high sensitive troponins has been negative And cardiac examination essentially normal. Further evaluation by nuclear stress test revealed the following Mild anterior reversible ischemia with preserved diastolic function Plan and assessment; 1. Recommend to evaluate further with cardiac catheterization/right radial artery approach 2. Continue medical treatment. HPI Consult Data Date of Consult: 11/26/20 Attending Care Provider: Cardio consultation requested for evaluation of patient who presented with chest pain and had abnormal stress test and significant family history of CAD. HPI Narrative HPI Narrative: VINNIE OLIVAREZ, is a 35 M who presents [facility] Medical History (Updated 11/25/20 @ 14:35 by Barbara Green) ADHD Adrenal benign tumor Anemia Bipolar disorder Chronic pain Degenerative disc disease GERD (gastroesophageal reflux disease) History of DVT (deep vein thrombosis) Hypertension Kidney stones Migraines Obstructive sleep apnea Smoker Substance abuse Home Medications Quetiapine Fumarate [Seroquel Xr] 400 mg PO QHS 04/08/20 [History Last Taken 11/24/20] fluoxetine 40 mg PO QHS 04/08/20 [History Last Taken 11/24/20] gabapentin 300 mg PO BID PRN 04/08/20 [History Last Taken Unknown] gabapentin 300 mg PO QHS 04/08/20 [History Last Taken 11/24/20] oxcarbazepine 300 mg PO DAILY 04/08/20 [History Last Taken 11/24/20] oxcarbazepine 900 mg PO QHS 04/08/20 [History Last Taken 11/24/20] ondansetron 4 mg PO Q8H PRN PRN #10 tablet 10/12/20 [Rx Last Taken Unknown] diphenhydramine HCl [Benadryl] 50 mg PO QHS PRN 11/25/20 [History Last Taken 11/24/20] ibuprofen [IBU] 600 mg PO Q8H PRN 11/25/20 [History Last Taken 11/25/20 04:40] lisinopril 2.5 mg PO DAILY 11/25/20 [History Last Taken 11/25/20] metoprolol tartrate 25 mg PO BID 11/25/20 [History Last Taken 11/25/20] pantoprazole 40 mg PO DAILY 11/25/20 [History Last Taken 11/25/20] Allergy/AdvReac Type Severity Reaction Status Date / Time cinnamon Allergy Anaphylaxis Verified 10/12/20 07:18 codeine Allergy PT UNSURE Verified 11/25/20 14:17 OF REACTION Surgical History (Updated 11/25/20 @ 14:33 by Barbara Green) H/O lithotripsy Hx of tonsillectomy Social History Smoking Status: Current every day smoker Physical Exam Const alert, oriented x3, no apparent distress and healthy appearing Orientation / Consciousness: awake Eyes PERRL, EOMs intact bilaterally, conjunctivae normal and no scleral icterus Chest inspection of chest normal and palpation of chest normal Resp normal respiratory effort and clear to auscultation bilaterally Cardio regular rate, regular rhythm, S1 normal heart sound, S2 normal heart sound, no murmurs and no rub Skin no rashes or lesions noted, no jaundice and no petechiae Neuro oriented x3 Psych mental status grossly normal
--- NOTE | 2020-11-26 14:42 | PN.HOSP_ITS ---
Subjective Subjective Feels well. Anxious to know when the heart cath will be. Objective Data Objective Data Vital Signs: Vital Signs Temp Pulse Resp BP Pulse Ox 36.6 C 69 18 135/86 H 95 11/26/20 10:30 11/26/20 10:30 11/26/20 10:30 11/26/20 10:30 11/26/20 10:30 Oxygen Delivery Method Room Air Weight: 134.2 kg Body Mass Index (BMI) 41.2 Intake & Output: Intake and Output for Last 24 Hours 11/24/20 11/25/20 11/26/20 23:59 23:59 23:59 Intake Total 2930 / 2930 1432.5 / 1432.5 Balance 2930 / 2930 1432.5 / 1432.5 Lab / Micro Data Result Diagrams: 11/25/20 07:36 11/25/20 08:25 Labs: Laboratory Results - last 24 hr 11/25/20 11/25/20 11/26/20 16:18 19:29 06:52 Troponin I < 0.015 < 0.015 Triglycerides 371 H Cholesterol 212 H LDL Cholesterol 112 VLDL Cholesterol 74 H HDL Cholesterol 26 L Physical Exam Const alert and oriented x3 HEENT normocephalic Head and Scalp: normocephalic Resp normal respiratory effort, no use of accessory muscles and clear to auscultation bilaterally Cardio regular rate, regular rhythm, S1 normal heart sound and S2 normal heart sound GI normal to inspection, nondistended, normoactive bowel sounds, non-tender and non-distended Neuro Sensorium / Orientation: awake and alert Psych affect normal Assessment & Plan Assessment/Plan (1) Chest pain: QUALIFIERS: Chest pain type: unspecified Qualified Code(s): R07.9 - Chest pain, unspecified PLAN: 1. Chest pain * No prior history of CAD. * HANH score of 1 * Abnormal stress test * Seen by cardiology who is planning doing left heart catheterization on November 28. * Start aspirin 2. Hyperlipidemia * start statin 3. VTE prophylaxis: Low risk given observation status. Visit Charges OBSV E&M: 88954 Subsequent observation care L2
[2020-11-26] MEDS: 0.9% Saline Lock 10 ML Syringe IV (22:04)
[2020-11-26] MEDS: Gabapentin 300 MG Capsule PO (22:05)
[2020-11-26] MEDS: Atorvastatin Calcium 40 MG Tablet PO (22:05)
[2020-11-26] MEDS: QUEtiapine 100 MG Tablet 200 MG PO (22:05)
[2020-11-26] MEDS: OXcarbazepine 300 MG Tablet 900 MG PO (22:05)
[2020-11-26] MEDS: FLUoxetine 20 MG Capsule 40 MG PO (22:05)
[2020-11-27] VITALS (10 sets, daily range): BP systolic 143–163; BP diastolic 74–91; PULSE 53–71; RESP 17–18; TEMP 36.2–36.8; O2SAT 96–100
[2020-11-27] MEDS: Pantoprazole Sodium 40 MG Tablet PO ×2 (09:34)
[2020-11-27] MEDS: Lisinopril 2.5 MG Tablet PO (09:34)
[2020-11-27] MEDS: OXcarbazepine 300 MG Tablet PO (09:34)
[2020-11-27] MEDS: Aspirin 81 MG TAB.CHEW PO (09:42)
--- NOTE | 2020-11-27 11:52 | PN.CARD_ITS ---
Subjective Subjective Stable clinically no symptoms of chest pain reported. Objective Data Vital Signs: Vital Signs Temp Pulse Resp BP Pulse Ox 97.2 F L 65 18 163/86 H 99 11/27/20 09:01 11/27/20 09:01 11/27/20 09:01 11/27/20 09:01 11/27/20 09:01 Oxygen Delivery Method Room Air Weight: 295 lb 13.765 oz Body Mass Index (BMI) 41.2 Intake & Output: Intake and Output for Last 24 Hours 11/25/20 11/26/20 11/27/20 23:59 23:59 23:59 Intake Total 2930 / 2930 3236.96 / 3236.96 240 / 240 Balance 2930 / 2930 3236.96 / 3236.96 240 / 240 Lab / Micro Data Result Diagrams: 11/25/20 07:36 11/25/20 08:25 Cardiology Labs/Tests Rhythm: EKG: ECHO: Stress Test: Cardiac Cath: PCI: CT Surgery: Holter monitor: EPS: PPM: CXR: Chest CT Scan: Physical Exam Const alert, oriented x3 and healthy appearing Orientation / Consciousness: awake Eyes PERRL, EOMs intact bilaterally, conjunctivae normal and no scleral icterus Neck supple Chest inspection of chest normal and palpation of chest normal Resp normal respiratory effort and clear to auscultation bilaterally Cardio regular rate, regular rhythm, S1 normal heart sound, S2 normal heart sound, no murmurs, no rub, no gallops, no clicks and no JVD GI normal to inspection, nondistended, normoactive bowel sounds and soft to palpation Extremity normal to inspection and no clubbing, cyanosis or edema Skin no rashes or lesions noted, no jaundice and no petechiae Neuro oriented x3 Psych mental status grossly normal Assessment & Plan Assessment/Plan (1) Chest pain: QUALIFIERS: Chest pain type: unspecified Qualified Code(s): R07.9 - Chest pain, unspecified PLAN: This patient 35-year-old smoker with significant family history of CAD Presented with symptoms of chest pain with a clinical diagnosis of unstable angina Evaluated further by nuclear stress test which showed evidence of anterior reversible myocardial ischemia Patient has been stable clinically Plan and recommendations; Has significant risk factor for CAD with abnormal nuclear stress test, anterior reversible myocardial ischemia with preserved LV systolic function. Recommended to evaluate with cardiac catheterization. Plan of medication recommendation will be based on results of cardiac catheterization (2) Acute anemia: (3) Morbid obesity: PLAN: 35-year-old patient presented with retrosternal chest pain, has significant family history of CAD and a smoker. 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 Bedside evaluation his symptoms of chest pain described as retrosternal with no specific radiation Cardiac evaluation by EKG showed underlying normal sinus Further assessment by high sensitive troponins has been negative And cardiac examination essentially normal. Further evaluation by nuclear stress test revealed the following Mild anterior reversible ischemia with preserved diastolic function Plan and assessment; 1. Recommend to evaluate further with cardiac catheterization/right radial artery approach 2. Continue medical treatment.
--- NOTE | 2020-11-27 14:45 | PN.HOSP_ITS ---
Subjective Subjective Intermittent chest pain. Not necessarily exacerbated by exertion, but can occur at rest. Objective Data Objective Data Vital Signs: Vital Signs Temp Pulse Resp BP Pulse Ox 36.3 C L 71 18 143/91 H 96 11/27/20 14:41 11/27/20 14:41 11/27/20 14:41 11/27/20 14:41 11/27/20 14:41 Oxygen Delivery Method Room Air Weight: 134.2 kg Body Mass Index (BMI) 41.2 Intake & Output: Intake and Output for Last 24 Hours 11/25/20 11/26/20 11/27/20 23:59 23:59 23:59 Intake Total 2930 / 2930 3236.96 / 3236.96 720 / 720 Balance 2930 / 2930 3236.96 / 3236.96 720 / 720 Lab / Micro Data Attestation: I reviewed the patient's lab results. Result Diagrams: 11/25/20 07:36 11/25/20 08:25 Physical Exam Const alert and oriented x3 HEENT normocephalic Resp normal respiratory effort, no use of accessory muscles and clear to auscultation bilaterally Cardio regular rate, regular rhythm, S1 normal heart sound and S2 normal heart sound GI normal to inspection, nondistended, normoactive bowel sounds, non-tender and non-distended Neuro Sensorium / Orientation: awake and alert Psych affect normal Assessment & Plan Assessment/Plan (1) Chest pain: QUALIFIERS: Chest pain type: unspecified Qualified Code(s): R07.9 - Chest pain, unspecified PLAN: 1. Chest pain * No prior history of CAD. * HANH score of 1 * Abnormal stress test * Seen by cardiology who is planning doing left heart catheterization on November 28. * Start aspirin 2. Hyperlipidemia * start statin 3. VTE prophylaxis: Low risk given observation status. Visit Charges OBSV E&M: 27892 Subsequent observation care L2
[2020-11-27] MEDS: 0.9% Saline Lock 10 ML Syringe IV (21:48)
[2020-11-27] MEDS: Atorvastatin Calcium 40 MG Tablet PO (21:49)
[2020-11-27] MEDS: Gabapentin 300 MG Capsule PO (21:49)
[2020-11-27] MEDS: QUEtiapine 100 MG Tablet 200 MG PO (21:49)
[2020-11-27] MEDS: FLUoxetine 20 MG Capsule 40 MG PO (21:49)
[2020-11-27] MEDS: Metoprolol Tartrate 25 MG Tablet PO (21:49)
[2020-11-27] MEDS: OXcarbazepine 300 MG Tablet 900 MG PO (21:50)
[2020-11-28] VITALS (13 sets, daily range): BP systolic 118–134; BP diastolic 57–86; PULSE 53–76; RESP 14–18; TEMP 36.2–36.8; O2SAT 94–97
[2020-11-28 05:00] LABS: Anion Gap 6 (5-15); BUN 13 mg/dL (7-18); BUN/Creat Ratio 13.5 RATIO (10-20); Chloride 105 mmol/L (98-107); Creatinine, Serum 0.96 mg/dL (0.70-1.30); EST Glomerular Filtration Rate 94 mL/min (>60); Est Glom Filt Rate - Afr Amer 114 mL/min (>60); Glucose 104 mg/dL (74-106); Potassium 4.3 mmol/L (3.5-5.1); Sodium Level 139 mmol/L (136-145)
--- NOTE | 2020-11-28 05:55 | EKG12_ITS ---
Test Reason : AM EKG Blood Pressure : / mmHG Vent. Rate : 052 BPM Atrial Rate : 052 BPM P-R Int : 172 ms QRS Dur : 090 ms QT Int : 416 ms P-R-T Axes : 027 005 040 degrees QTc Int : 386 ms Sinus bradycardia Otherwise normal ECG When compared with ECG of 26-NOV-2020 05:10, MANUAL COMPARISON REQUIRED, DATA IS UNCONFIRMED Confirmed by AURORA BOWLING, LISET ([id number]), lens grinder JACEY GILL ([id number]) on 11/29/2020 9:47:39 AM Referred By: DR RIVAS Confirmed By:LISET SIMON MD
[2020-11-28] MEDS: Metoprolol Tartrate 25 MG Tablet PO (06:27)
[2020-11-28] MEDS: Aspirin 81 MG TAB.CHEW PO (06:28)
[2020-11-28] MEDS: Lisinopril 2.5 MG Tablet PO (06:28)
--- NOTE | 2020-11-28 07:56 | PCM.PN.CARD ---
Subjective Subjective The patient is going alert. He denies any ongoing chest discomfort or difficulty breathing. Objective Data Vital Signs: Vital Signs Temp Pulse Resp BP Pulse Ox 97.2 F L 62 18 127/84 H 96 11/28/20 06:11 11/28/20 06:27 11/28/20 06:11 11/28/20 06:27 11/28/20 06:11 Oxygen Delivery Method Room Air Weight: 295 lb 13.765 oz Body Mass Index (BMI) 41.2 Intake & Output: Intake and Output for Last 24 Hours 11/26/20 11/27/20 11/28/20 23:59 23:59 23:59 Intake Total 3236.96 / 3236.96 1764 / 1764 Balance 3236.96 / 3236.96 1764 / 1764 Lab / Micro Data Result Diagrams: 11/25/20 07:36 11/28/20 04:17 Labs: Laboratory Results - last 24 hr 11/28/20 04:17 Sodium 139 Potassium 4.3 Chloride 105 Carbon Dioxide 28.0 Anion Gap 6 BUN 13 Creatinine 0.96 Estim Creat Clear Calc 113.30 Est GFR (MDRD) Af Amer 114 Est GFR (MDRD) Non-Af 94 BUN/Creatinine Ratio 13.5 Glucose 104 Calcium 9.0 Cardiology Labs/Tests 11/28/20 04:17: Sodium 139, Potassium 4.3, Chloride 105, Carbon Dioxide 28.0, Anion Gap 6, BUN 13, Creatinine 0.96, Est GFR (MDRD) Af Amer 114, Est GFR (MDRD) Non-Af 94, BUN/Creatinine Ratio 13.5, Glucose 104, Calcium 9.0 Rhythm: Sinus rhythm EKG: Sinus rhythm Stress test: Conclusion: Mild to moderate anterior reversible myocardial ischemia, in the LAD distribution Normal LV systolic function Maria G Castaneda MD,FACC,[facility] Physical Exam Const alert and oriented x3 Orientation / Consciousness: awake HEENT normocephalic Eyes PERRL and EOMs intact bilaterally Neck full ROM and supple Chest inspection of chest normal Resp normal respiratory effort Cardio regular rate, regular rhythm, S1 normal heart sound and S2 normal heart sound GI normal to inspection, nondistended, normoactive bowel sounds Extremity no pedal edema Skin no rashes or lesions noted Psych mental status grossly normal Assessment & Plan Assessment/Plan (1) Chest pain: QUALIFIERS: Chest pain type: unspecified Qualified Code(s): R07.9 - Chest pain, unspecified PLAN: The patient presented with chest discomfort which he is involved his central chest and his upper extremity. His cardiac enzymes have been reported as negative. His ECG demonstrates sinus rhythm. His stress nuclear imaging study, per Dr. Castaneda, is as noted. He has been recommended for further evaluation with diagnostic cardiac catheterization. The procedures and risk of been discussed with him. He was agreeable to this approach. (2) Abnormal stress test: PLAN: The patient did undergo additional noninvasive cardiovascular evaluation. His stress nuclear imaging study was interpreted by Dr. Castaneda. The results are as noted. Dr. Castaneda recommended further evaluation with diagnostic cardiac catheterization. (3) Benign essential HTN: PLAN: He states he has a history of hypertension. He will need to continue medical management as deemed appropriate. Addt'l Comments The patient's case was discussed with Dr. Castaneda. He stated that status post review of the patient's case he recommended further evaluation with diagnostic cardiac catheterization. This was reviewed with the patient. He was agreeable to this approach. Procedure Criteria Type of Procedure Procedure Type: Elective Elective Risks - COVID COVID Risk Discussion: The surgeon/proceduralist and patient have discussed in detail the risk of exposure to and/or potential harm posed by the COVID-19 virus with having a surgery/procedure at this time versus the risk of delaying the surgery/procedure. It is not possible to know either the risk of delaying the surgery or procedure or chance of getting an infection with perfect accuracy, but a joint decision was made between the patient and the surgeon/proceduralist to proceed at this time with the scheduled surgery/procedure as indicated on the consent form.
--- NOTE | 2020-11-28 08:46 | CASEMGMT ---
According to the [facility] website, the following tertiary facilities are in network: [facility], [facility], [facility], [facility] and [facility].
--- NOTE | 2020-11-28 09:09 | CL.D_ITS ---
Patient Name: BALJIT OLIVAREZ Study Date: 11/28/2020 Performing: Baljit Pardo MD Ht: 70.86 inches 180 cm : 1985 Wt: 295.42 lbs 134 kg Age: 35 Gender: male BSA: 2.49 PROCEDURE(S) PERFORMED NP94-DZO/COR/LV CLINICAL PROFILE AND INDICATIONS Indications: Worsening Angina, Suspected CAD Heart Failure: None Stress/Imaging Date: 11/26/2020 Angina Classification Anginal Classification w/in 2 Weeks: CCS III CAD Presentations: Unstable angina. CONCLUSIONS Elevated Left Ventricular End Diastolic Pressure (mild) Normal LV size, wall motion,and systolic function LVEF: by LV gram 65 % [place] Multivessel CAD (mild luminal irregularities) RECOMMENDATIONS Risk factor modification Medical therapy DESCRIPTION OF PROCEDURE The patient arrived to the procedure lab. The risks and benefits of the procedure as well as a full d escription of our services here and current unavailability of surgical backup were fully explained to the patient and/or their significant other prior to the catheterization. The Timeout was completed, verifying the correct patient and procedure. The patient's procedural site was prepped and draped in the usual fashion. Local anesthetic was given subcutaneously to right radial region with Lidocaine 2% . Local anesthetic was given subcutaneously to right groin region with Lidocaine 2%. Using a modified Seldinger technique, arterial access was obtained via the right femoral artery, a 4Fr sheath was ins erted Left Coronary Artery selective angiography was performed in multiple views using a 4 Fr. JL5 c atheter. Right Coronary Artery selective angiography was then performed in multiple views using a 4 F r. JR4 catheter. Left Ventriculography was performed in FUNG projection using a 4 Fr. Pigtail catheter. LV to AO pullback pressures were then recorded.The arterial sheath was pulled and m anual compression applied until hemostasis is achieved. CORONARY ANGIOGRAPHY DOMINANCE: Right Dominant LEFT HEART ASSESSMENT Left Ventricular Ejection Fraction: by LV Gram 65 % Normal LV wall motion Elevated Left Ventricular End Diastolic Pressure LVEDP: 15 mmHg LEFT MAIN: Angiographically normal LEFT ANTERIOR DESCENDING ARTERY: Mild luminal irregularities DISTAL LAD: Mild luminal irregularities CIRCUMFLEX ARTERY: Mild luminal irregularities RAMUS: Mild luminal irregularities RIGHT CORONARY ARTERY: DISTAL RCA: Mild luminal irregularities AORTIC ROOT: Angiographically normal COMPLICATIONS No Complications PROCEDURE MEDICATIONS Versed 1 mg IV Fentanyl 50 mcg IV Versed 1 mg IV Oxygen: 2 L/min via nasal cannula SUMMARY OF HEMODYNAMIC DATA Time AIR REST ECG 08:08:00 AO 115/89 (102) SA 08:35:13 LV 120/7, 24 08:49:38 LV 109/2, 15 08:49:44 LV 120/2, 21 08:50:35 LVp 136/-4, 17 08:50:43 AOp 128/74 (97) 08:50:48 09:05:46 Signed By Baljit Pardo MD On 11/28/2020 09:08:21 Baljit Pardo MD
[2020-11-28] MEDS: OXcarbazepine 300 MG Tablet PO (09:24)
[2020-11-28] MEDS: QUEtiapine 100 MG Tablet 200 MG PO (09:24)
[2020-11-28] MEDS: 0.9% Normal Saline 1,000 ML 75 ML IV (11:35)
--- NOTE | 2020-11-28 14:30 | PCM.DC ---
Discharge Instructions Diet Discharge Diet: Low fat / Low cholesterol and 2000 mg Sodium Diet Activity Discharge Activity: Return to Normal Activity and May Not Drive (For 2 weeks after right femoral access for cardiac cath) Weight Bearing Status: Weight bearing as tolerated Dressing / Incision Call your doctor if you observe: Fever of 101 or Higher, Coldness, Increased Pain, Numbness or Tingling, Change in Color, Inability to urinate, Inability to have a bowel movement, Shortness of breath, Dizziness, Fainting spells, Swelling in the ankles, Chest pain, Prolonged hiccupping, Increased palpitations (irregular heartbeat), Calf discomfort and Uncontrolled pain Follow Up Care Test Results: Test results from this visit will be discussed in further detail at your follow-up appointment, if applicable. Discharge Plan Admission Admit Date/Time: 11/25/20 09:35 Primary Reason for Your Visit: Atypical chest pain with abnormal stress test Attending Provider: Wayne Larkin Consulting Providers: Maria G Castaneda Instructions Patient Instructions: What Is Angina?, Controlling High Blood Pressure, ED Anemia, Type Not Specified (Adult), ED Chest Pain, Noncardiac, ED Chest Pain, Uncertain Cause Discharge Orders/Prescriptions Prescriptions: New atorvastatin 40 mg Tablet 40 mg PO QHS Qty: 30 RF: 1 Continued oxcarbazepine 300 MG tablet 300 mg PO DAILY RF: 0 oxcarbazepine 300 MG tablet 900 mg PO QHS RF: 0 gabapentin 300 MG capsule 300 mg PO QHS RF: 0 fluoxetine 20 MG capsule 40 mg PO QHS RF: 0 gabapentin 300 MG capsule 300 mg PO BID PRN (Reason: mood) RF: 0 Quetiapine Fumarate [Seroquel Xr] 400 MG Tab.Sr.24h 400 mg PO QHS RF: 0 ondansetron 4 MG tablet 4 mg PO Q8H PRN PRN (Reason: Nausea) Qty: 10 RF: 0 ibuprofen [IBU] 600 mg tablet 600 mg PO Q8H PRN (Reason: Pain) RF: 0 pantoprazole 40 MG tablet,delayed release (DR/EC) 40 mg PO DAILY RF: 0 Changed diphenhydramine HCl [Benadryl] 25 mg Capsule 25 mg PO QHS PRN (Reason: Sleep) Qty: 0 RF: 0 lisinopril 2.5 MG tablet 5 mg PO DAILY Qty: 0 RF: 0 metoprolol tartrate 25 MG tablet 12.5 mg PO BID Qty: 0 RF: 0 Referrals / Follow Up: GILMER PEÑALOZA [Other] (In 2 weeks) GILMER PEÑALOZA [Other] Chasity Crump [Emergency Nurse] - Disposition Disposition (needs filled in before D/C Order can be placed): Home, self care
--- NOTE | 2020-11-28 14:42 | PCM.DC.SUM ---
Providers Date of Admission: 11/25/20 Primary Care Physician: GILMER VOGEL Consultations 11/25/20 18:05 Consult: Cardiology Routine Consulting Provider: Maria G Castaneda Reason for Consult: Positive stress test EMERGENT Consult: No MD Notified: Yes Date Notified:: 11/25/20 Time Notified: 18:05 Method of Notification: Text Reason For Visit: CHEST PAIN Diagnosis Discharge Diagnosis (1) Chest pain: Status: Acute Code(s): R07.9 - Chest pain, unspecified Qualifiers: Chest pain type: unspecified Qualified Code(s): R07.9 - Chest pain, unspecified (2) Abnormal stress test: Status: Acute Code(s): R94.39 - Abnormal result of other cardiovascular function study (3) Benign essential HTN: Status: Acute Code(s): I10 - Essential (primary) hypertension Medications at Discharge Home Medications Quetiapine Fumarate [Seroquel Xr] 400 mg PO QHS 04/08/20 fluoxetine 40 mg PO QHS 04/08/20 gabapentin 300 mg PO BID PRN 04/08/20 gabapentin 300 mg PO QHS 04/08/20 oxcarbazepine 300 mg PO DAILY 04/08/20 oxcarbazepine 900 mg PO QHS 04/08/20 ondansetron 4 mg PO Q8H PRN PRN #10 tablet 10/12/20 ibuprofen [IBU] 600 mg PO Q8H PRN 11/25/20 pantoprazole 40 mg PO DAILY 11/25/20 aspirin 81 mg PO DAILY #30 tab 11/28/20 atorvastatin 40 mg PO QHS #30 tab 11/28/20 diphenhydramine HCl [Benadryl] 25 mg PO QHS PRN #0 cap 11/28/20 lisinopril 5 mg PO DAILY #0 tab 11/28/20 metoprolol tartrate 12.5 mg PO BID #0 tab 11/28/20 Hospital Course Summary of Care Provided Hospital Course: This is a 35-year-old gentleman who was admitted with intermittent chest pain with radiation to left arm along with mild dizziness and shortness of breath. Chest pain does not have exacerbation or related with activity. Patient was admitted in PCU. HANH risk score 1. Patient had abnormal stress test and left heart cath was done on November 28. Cardiac cath showed mild luminal irregularities advised normal. EF 65%. Patient pressure is controlled. Fasting profile shows high LDL 212, triglyceride 371, VLDL 74 and HDL 26. Patient on high intensity of atorvastatin 40 mg daily. On lisinopril, metoprolol and baby aspirin. 2D echo in March 2020 showed EF 55%, LA mildly enlarged, RVSP 40 mmHg suggestive of chronic diastolic heart failure. Discharge medication reconciliation done. Discharge follow-up instructions completed. Discharge process discussed with the patient and all questions were answered to patient's satisfaction. Patient advised weight loss. Total time spent, exact 35 minutes on discharge meds reconciliation, examination, coordination of care with nurses and ancillary staff, review of imaging and blood test and discussion with the patient on follow-up instructions Physical Exam Narrative Patient does not have chest pain or shortness of breath. Was admitted with midsternal atypical chest pain persisted. Physical exam General: Alert, Oriented x3, Cooperative, morbid obese BMI 41.3 kg/m? HEENT: Atraumatic, PERRLA, EOMI, Normocephalic Oral: No Gingival or Mucosal Lesions/ Ulcerations Neck: Supple, No JVD, Negative Carotid Bruits Lungs: Air entry equal in bilateral lung bases. No crepitation/rhonchi Cardiovascular: Regular rate, Regular Rhythm, Normal S1, Normal S2, No murmurs Abdomen: Bowel Sounds Present, Soft, Non Tender, Non-Distended : No renal angle tenderness. No suprapubic tenderness. Extremities: Right groin, no bleeding/hematoma from right femoral artery access. No edema, Capillary Refill Less than 3 Seconds Skin: No rashes, No breakdown Musculoskeletal: No Tenderness to Palpation of Joints or Extremities Neurological: Cranial nerves II-XII grossly intact, Deep Tendon Reflexes 2+/4 and Symmetrical, Neuro grossly intact Psych/Mental Status: Normal Affect, Appropriate. ABG / Lab / Microbiology Data Result Diagrams: 11/25/20 07:36 11/28/20 04:17 Laboratory: Laboratory Results - last 24 hr 11/28/20 04:17 Sodium 139 Potassium 4.3 Chloride 105 Carbon Dioxide 28.0 Anion Gap 6 BUN 13 Creatinine 0.96 Estim Creat Clear Calc 113.30 Est GFR (MDRD) Af Amer 114 Est GFR (MDRD) Non-Af 94 BUN/Creatinine Ratio 13.5 Glucose 104 Calcium 9.0 D/C Instructions Discharge Diet: Low fat / Low cholesterol and 2000 mg Sodium Diet Discharge Activity: Return to Normal Activity and May Not Drive (For 2 weeks after right femoral access for cardiac cath) Weight Bearing Status: Weight bearing as tolerated Call your doctor if you observe: Fever of 101 or Higher, Coldness, Increased Pain, Numbness or Tingling, Change in Color, Inability to urinate, Inability to have a bowel movement, Shortness of breath, Dizziness, Fainting spells, Swelling in the ankles, Chest pain, Prolonged hiccupping, Increased palpitations (irregular heartbeat), Calf discomfort and Uncontrolled pain Meaningful Use Info Meaningful Use Diagnoses (Choose all that apply): None applicable Discharge Plan Admission Admit Date/Time: 11/25/20 09:35 Primary Reason for Your Visit: Atypical chest pain with abnormal stress test Attending Provider: Wayne Larkin Consulting Providers: Maria G Castaneda Instructions Patient Instructions: What Is Angina?, Controlling High Blood Pressure, ED Anemia, Type Not Specified (Adult), ED Chest Pain, Noncardiac, ED Chest Pain, Uncertain Cause Discharge Orders/Prescriptions Prescriptions: New atorvastatin 40 mg Tablet 40 mg PO QHS Qty: 30 RF: 1 aspirin 81 mg Tablet,Chewable 81 mg PO DAILY Qty: 30 RF: 2 Continued oxcarbazepine 300 MG tablet 300 mg PO DAILY RF: 0 oxcarbazepine 300 MG tablet 900 mg PO QHS RF: 0 gabapentin 300 MG capsule 300 mg PO QHS RF: 0 fluoxetine 20 MG capsule 40 mg PO QHS RF: 0 gabapentin 300 MG capsule 300 mg PO BID PRN (Reason: mood) RF: 0 Quetiapine Fumarate [Seroquel Xr] 400 MG Tab.Sr.24h 400 mg PO QHS RF: 0 ondansetron 4 MG tablet 4 mg PO Q8H PRN PRN (Reason: Nausea) Qty: 10 RF: 0 ibuprofen [IBU] 600 mg tablet 600 mg PO Q8H PRN (Reason: Pain) RF: 0 pantoprazole 40 MG tablet,delayed release (DR/EC) 40 mg PO DAILY RF: 0 Changed diphenhydramine HCl [Benadryl] 25 mg Capsule 25 mg PO QHS PRN (Reason: Sleep) Qty: 0 RF: 0 lisinopril 2.5 MG tablet 5 mg PO DAILY Qty: 0 RF: 0 metoprolol tartrate 25 MG tablet 12.5 mg PO BID Qty: 0 RF: 0 Referrals / Follow Up: GILMER PEÑALOZA [Other] (In 2 weeks) GILMER PEÑALOZA [Other] Chasity Crump [Emergency Nurse] - Disposition Disposition (needs filled in before D/C Order can be placed): Home, self care
--- NOTE | 2020-11-28 15:43 | PHA.DC.MC ---
Pharmacy Service has performed discharge medication reconciliation and counseling for this patient. 1. ASPIRIN 81MG PO DAILYCM 2. ATORVASTATIN 80MG PO QHS The patient's discharge medication list was reviewed for discrepancies and discrepancies were resolved. Home Medications Quetiapine Fumarate [Seroquel Xr] 400 mg PO QHS 04/08/20 fluoxetine 40 mg PO QHS 04/08/20 gabapentin 300 mg PO BID PRN 04/08/20 gabapentin 300 mg PO QHS 04/08/20 oxcarbazepine 300 mg PO DAILY 04/08/20 oxcarbazepine 900 mg PO QHS 04/08/20 ondansetron 4 mg PO Q8H PRN PRN #10 tablet 10/12/20 ibuprofen [IBU] 600 mg PO Q8H PRN 11/25/20 pantoprazole 40 mg PO DAILY 11/25/20 aspirin 81 mg PO DAILY #30 tab 11/28/20 atorvastatin 40 mg PO QHS #30 tab 11/28/20 diphenhydramine HCl [Benadryl] 25 mg PO QHS PRN #0 cap 11/28/20 lisinopril 5 mg PO DAILY #0 tab 11/28/20 metoprolol tartrate 12.5 mg PO BID #0 tab 11/28/20 The patient was counseled on the following discharge medications and changes in medications for homegoing were reviewed. The Reason for Use, instructions for use, and potential side effects were reviewed for all new medications. The patient's questions regarding all of their medications were answered. The patient was able to verbally demonstrate an understanding of their discharge medications.
== END 2020-11-28 14:41 | disposition home or self-care (01) ==
LOC: ED 09:23 → PCU 13:44
PROVIDERS: Hospitalist; Emergency Provider Emergency Medicine; Visit Provider Internal Medicine
DX: R07.89 Other chest pain (principal); M79.602 Pain in left arm; R06.02 Shortness of breath; R42 Dizziness and giddiness; F90.9 Attention-deficit hyperactivity disorder, unspecified type; G47.33 Obstructive sleep apnea (adult) (pediatric); F31.9 Bipolar disorder, unspecified; I25.110 Atherosclerotic heart disease of native coronary artery with unstable angina pectoris; F17.200 Nicotine dependence, unspecified, uncomplicated; I10 Essential (primary) hypertension; R94.39 Abnormal result of other cardiovascular function study; E66.01 Morbid (severe) obesity due to excess calories; K21.9 Gastro-esophageal reflux disease without esophagitis; E78.5 Hyperlipidemia, unspecified; Z82.49 Family history of ischemic heart disease and other diseases of the circulatory system; Z86.718 Personal history of other venous thrombosis and embolism; Z79.01 Long term (current) use of anticoagulants; Z79.899 Other long term (current) drug therapy; Z79.82 Long term (current) use of aspirin; Z68.41 Body mass index [BMI] 40.0-44.9, adult
CPT/HCPCS: 36415; 71045; 78452; 80048; 80061; 84484; 85025; 85379; 93005; 93017; 93458; 96361; 96374; 96375; 99152; 99153; 99218; 99285; A9500; J7030; J7040; Q9967; A4216; C1769; C1894; G0378; J2405; J2785

== ENCOUNTER 2021-03-07 10:53 | Emergency (ER) | payer MEDICAID, SELFPAY ==
[2021-03-07 10:54] VITALS: BP 116/65; PULSE 56; RESP 18; TEMP 36.1; O2SAT 100; BMI 39.0
--- NOTE | 2021-03-07 11:51 | EKG12_ITS ---
Test Reason : CHEST PAIN Blood Pressure : / mmHG Vent. Rate : 057 BPM Atrial Rate : 057 BPM P-R Int : 176 ms QRS Dur : 088 ms QT Int : 408 ms P-R-T Axes : 030 012 044 degrees QTc Int : 397 ms Sinus bradycardia Otherwise normal ECG Confirmed by SHAWN BOWLING, VINNIE ([id number]), order editor JACEY GILL ([id number]) on 03/09/2021 9:56:59 AM Referred By: Confirmed By:VINNIE ESCOBAR MD
--- NOTE | 2021-03-07 11:51 | ED.VIS.CHEST ---
HPI History of Present Illness Chief Complaint: Chest Pain Informant: patient Narrative Narrative: 35-year-old male presents to the emergency department with chest pain. Patient states that he woke up this morning feeling fine. 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 He began to have a tightness in his chest that went towards his left arm. He states he feels fatigued. Notes a history of hypertension bipolar disorder. He is a chronic smoker. [facility] Medical History ADHD Adrenal benign tumor Anemia Benign essential HTN Bipolar disorder Chronic pain Degenerative disc disease GERD (gastroesophageal reflux disease) History of DVT (deep vein thrombosis) Hypertension Kidney stones Migraines Obstructive sleep apnea Smoker Substance abuse Home Medications Quetiapine Fumarate [Seroquel Xr] 400 mg PO QHS 04/08/20 [History Last Taken 11/24/20] fluoxetine 40 mg PO QHS 04/08/20 [History Last Taken 11/24/20] gabapentin 300 mg PO BID PRN 04/08/20 [History Last Taken Unknown] gabapentin 300 mg PO QHS 04/08/20 [History Last Taken 11/24/20] oxcarbazepine 300 mg PO DAILY 04/08/20 [History Last Taken 11/24/20] oxcarbazepine 900 mg PO QHS 04/08/20 [History Last Taken 11/24/20] ondansetron 4 mg PO Q8H PRN PRN #10 tablet 10/12/20 [Rx Last Taken Unknown] ibuprofen [IBU] 600 mg PO Q8H PRN 11/25/20 [History Last Taken 11/25/20 04:40] pantoprazole 40 mg PO DAILY 11/25/20 [History Last Taken 11/25/20] aspirin 81 mg PO DAILY #30 tab 11/28/20 [Rx Last Taken Unknown] atorvastatin 40 mg PO QHS #30 tab 11/28/20 [Rx Last Taken Unknown] diphenhydramine HCl [Benadryl] 25 mg PO QHS PRN #0 cap 11/28/20 [Rx Last Taken 11/24/20] lisinopril 5 mg PO DAILY #0 tab 11/28/20 [Rx Last Taken 11/25/20] metoprolol tartrate 12.5 mg PO BID #0 tab 11/28/20 [Rx Last Taken 11/25/20] Allergy/AdvReac Type Severity Reaction Status Date / Time cinnamon Allergy Anaphylaxis Verified 03/07/21 11:04 codeine Allergy PT UNSURE Verified 03/07/21 11:04 OF REACTION Surgical History H/O lithotripsy Hx of tonsillectomy Social History (Updated 03/07/21 @ 11:[address] Fernandez Ram DO) Smoking Status: Current every day smoker tobacco type: cigarettes substance use type: does not use ROS ROS ED Constitutional Constitutional ED: Denies chills or weight loss Eyes Eyes: Denies change in vision or diplopia ENT ENT ED: Denies ear pain, rhinorrhea or sore throat Cardiovascular Cardiovascular: Reports chest pain; Denies orthopnea, palpitations or racing heartbeat Respiratory/Chest Respiratory/Chest: Reports dyspnea; Denies cough or orthopnea Gastrointestinal Gastrointestinal: Denies abdominal pain, diarrhea, nausea or vomiting Genitourinary Genitourinary ED: Denies dysuria, hematuria or urinary frequency Musculoskeletal Musculoskeletal: Denies arthralgias or myalgias Integumentary Denies abscess or rash Neurologic Neurologic: Denies headache(s) or weakness Psychiatric Psychiatric: Denies anxiety, depression, suicidal ideation or suicidal thoughts Endocrine Endocrinology: Denies polydipsia, polyphagia or polyuria Allergic/Immunologic Allergic/Immunologic ED: Denies mouth swelling, tongue swelling or urticaria EXAM Physical Exam Const Vital Signs: 03/07/21 10:54 Temperature 96.9 F L Temperature Source Temporal Pulse Rate 56 L Respiratory Rate 18 Blood Pressure 116/65 Blood Pressure Mean 82 Pulse Ox 100 Oxygen Delivery Method Room Air Positive well nourished, well developed and obese General Appearance ED: well developed Nutritional Appearance: obese HEENT Reports normocephalic, head/scalp atraumatic and moist mucous membranes Eyes PERRL and EOMs intact bilaterally Neck no lymphadenopathy, supple and no JVD Resp normal respiratory effort and clear to auscultation bilaterally Cardio regular rate, regular rhythm and no murmurs GI normal to inspection, nondistended, normoactive bowel sounds and non-tender Palpation: soft Back/Spine no CVA tenderness and normal ROM Extremity normal to inspection General Extremety ED: Negative for edema General Extremity: Negative for edema Neuro oriented x3 and CN's II-XII intact bilaterally Sensorium / Orientation: alert Motor Exam: strength 5/5 throughout Psych mental status grossly normal Mood & Affect: Negative for depressed or tearful Skin no rashes or lesions noted and no wounds Heart Score History: Slightly/Non-Suspicious ECG: Normal Age: </= 45 years Risk Factors: 1 or 2 Risk Factors Troponin: </= Normal Limit Score: 1 MDM MDM MDM Narrative Medical decision making narrative: D-dimer is normal. Troponin V. EKG is a normal sinus rhythm. Hemoglobin of 10. This appears relatively stable for him. My interpretation of the chest x-ray is large hiatal hernia with cardiomegaly. At this point I do not see an emergent cause of the patient's symptoms. I advised him he may wish to follow-up with a surgeon regarding his hiatal hernia as it seems to be increasing in size. Patient notes understanding the plan is comfortable with it Lab Data Attestation: I reviewed the patient's lab results. Labs: Laboratory Results - last 24 hr 03/07/21 03/07/21 03/07/21 11:55 11:55 11:55 WBC 6.8 RBC 4.47 L Hgb 10.0 L Hct 33.9 L MCV 75.8 L MCH 22.4 L MCHC 29.5 L RDW Std Deviation 45.2 H RDW Coeff of Michael 16.6 H Plt Count 231 MPV 9.7 Immature Gran % (Auto) 0.400 Neut % (Auto) 58.4 Lymph % (Auto) 30.6 [place] % (Auto) 8.1 Eos % (Auto) 1.8 Baso % (Auto) 0.7 Absolute Neuts (auto) 4.0 Absolute Lymphs (auto) 2.08 Nucleated RBC % 0 D-Dimer Quant (PE/DVT) 0.29 Sodium 141 Potassium 4.4 Chloride 111 H Carbon Dioxide 26.0 Anion Gap 4 L BUN 14 Creatinine 1.05 Estim Creat Clear Calc 103.59 Est GFR (MDRD) Af Amer 102 Est GFR (MDRD) Non-Af 85 BUN/Creatinine Ratio 13.3 Glucose 102 Calcium 8.5 Troponin I High Sens 5 Radiography Diagnostic Testing: Radiology Impression Chest X-Ray 03/07/21 12:15 IMPRESSION: Borderline cardiomegaly. Large hiatal hernia. Electronically Signed: Chase Jenkins MD at 12:25 EDT , Service support , EKG Initial EKG: Attestation: I personally reviewed and interpreted this EKG as follows: Comments: Sinus bradycardia at a ventricular rate of fifty-seven. No concerning features of ACS or ectopy noted Discharge Plan Triage Chief Complaint: Chest Pain ED Provider: Fernandez Ram Dx/Rx/DC Orders Clinical Impression: Chest pain, Hiatal hernia Instructions: ED Hiatal Hernia Prescriptions: No Action oxcarbazepine 300 MG tablet 300 mg PO DAILY RF: 0 oxcarbazepine 300 MG tablet 900 mg PO QHS RF: 0 gabapentin 300 MG capsule 300 mg PO QHS RF: 0 fluoxetine 20 MG capsule 40 mg PO QHS RF: 0 gabapentin 300 MG capsule 300 mg PO BID PRN (Reason: mood) RF: 0 Quetiapine Fumarate [Seroquel Xr] 400 MG Tab.Sr.24h 400 mg PO QHS RF: 0 ondansetron 4 MG tablet 4 mg PO Q8H PRN PRN (Reason: Nausea) Qty: 10 RF: 0 ibuprofen [IBU] 600 mg tablet 600 mg PO Q8H PRN (Reason: Pain) RF: 0 pantoprazole 40 MG tablet,delayed release (DR/EC) 40 mg PO DAILY RF: 0 atorvastatin 40 mg Tablet 40 mg PO QHS Qty: 30 RF: 1 diphenhydramine HCl [Benadryl] 25 mg Capsule 25 mg PO QHS PRN (Reason: Sleep) Qty: 0 RF: 0 lisinopril 2.5 MG tablet 5 mg PO DAILY Qty: 0 RF: 0 metoprolol tartrate 25 MG tablet 12.5 mg PO BID Qty: 0 RF: 0 aspirin 81 mg Tablet,Chewable 81 mg PO DAILY Qty: 30 RF: 2 Primary Care Provider: Care Physician,No Primary Referrals: Radha Fierro MD [STAFF PHYSICIAN] - As Needed (For surgical consultation) Care Physician,No Primary [Primary Care Provider] - Activity Restrictions/Additional Instructions: Please follow-up with your primary care physician. Disposition Disposition: Home, Self Care
[2021-03-07 12:04] LABS: Absolute Lymphocyte Count 2.08 X10^3/uL (0.83-4.51); Basophil# 0.05 X10^3/uL; Basophil% 0.7 % (0-1); Eosinophil# 0.12 X10^3/uL; Eosinophils% 1.8 % (0-5); Hematocrit 33.9 % (40-54); Lymphocyte # 2.08 X10^3/ul (0.83-4.51); Lymphocyte % 30.6 % (19-41); Mean Corp Hgb Conc 29.5 g/dL (32-36); Mean Corpuscular Hgb 22.4 pg (27.0-32.0); Mean Corpuscular Volume 75.8 fL (80-94); Mean Platelet Vol. 9.7 fl (6.2-12.0); Monocyte# 0.55 X10^3/uL; Monocyte% 8.1 % (0-10); NRBC Flagged by Analyzer 0 % (0-5); Neutrophil # 3.96 X10^3/uL (2.7-7.7); Neutrophil % 58.4 % (47-70); Platelet Count 231 K/mm3 (150-450); RBC Distribution Width CV 16.6 % (11.6-14.6); RBC Distribution Width SD 45.2 fl (35.1-43.9); Red Blood Count 4.47 M/mm3 (4.6-6.2); White Blood Count 6.8 K/mm3 (4.4-11.0)
[2021-03-07 12:14] LABS: D-Dimer Quantitative (DVT/PE) 0.29 FEU/ug/m (0.27-0.49)
--- NOTE | 2021-03-07 12:15 | RAD_ITS ---
STUDY: X-RAY CHEST REASON FOR EXAM: Male, 35 years old. Chest pain TECHNIQUE: Single AP portable view of the chest. COMPARISON: Comparison is made with prior study of 11/25/2020. FINDINGS: EKG electrodes are seen. The lungs are clear and expanded. There is no demonstrated pleural abnormality. There is borderline cardiomegaly. Normal mediastinum and ina. Normal visualized pulmonary arteries. Normal visualized aortic arch and descending thoracic aorta. Normal visualized thoracic spine. Normal visualized ribs, clavicles, and shoulders. Large hiatal hernia. RAD/Chest 1 View (Portable) IMPRESSION: Borderline cardiomegaly. Large hiatal hernia. Electronically Signed: Chase Jenkins MD at 12:25 EDT , Service support ,
[2021-03-07 12:23] LABS: Anion Gap 4 (5-15); BUN 14 mg/dL (7-18); BUN/Creat Ratio 13.3 RATIO (10-20); Calcium,Total 8.5 mg/dL (8.5-10.1); Chloride 111 mmol/L (98-107); Creatinine, Serum 1.05 mg/dL (0.70-1.30); EST Glomerular Filtration Rate 85 mL/min (>60); Est Glom Filt Rate - Afr Amer 102 mL/min (>60); Estimated Creatinine Clearance 103.59 ml/min; Glucose 102 mg/dL (74-106); Potassium 4.4 mmol/L (3.5-5.1); Sodium Level 141 mmol/L (136-145); Troponin-I HS 5 pg/mL (3.0-78.0)
--- NOTE | 2021-03-07 12:51 | CM.ED ---
SHIN Note Referral Source: Case Find Referral Reason: No Primary Care Physician (PCP) SW met with patient in his room. SHIN introduced self. Patient confirmed he has no PCP. SW provided him with Physicians Directory from [facility]. SW also provided patient with where to go When . Patient reports no issues or concerns. Plan: Patient was provided with PCP list and Where to Go When. Mary Alice RAI
[2021-03-07 12:58] VITALS: BP 112/59; PULSE 59; RESP 20; O2SAT 98
== END 2021-03-07 12:59 | disposition home or self-care (01) ==
PROVIDERS: Emergency Provider Emergency Medicine
DX: R07.89 Other chest pain (principal); K44.9 Diaphragmatic hernia without obstruction or gangrene; E66.9 Obesity, unspecified; Z68.39 Body mass index [BMI] 39.0-39.9, adult; I10 Essential (primary) hypertension; F31.9 Bipolar disorder, unspecified; F90.9 Attention-deficit hyperactivity disorder, unspecified type; G47.33 Obstructive sleep apnea (adult) (pediatric); G89.29 Other chronic pain; K21.9 Gastro-esophageal reflux disease without esophagitis; G43.909 Migraine, unspecified, not intractable, without status migrainosus; Z86.2 Personal history of diseases of the blood and blood-forming organs and certain disorders involving the immune mechanism; Z86.718 Personal history of other venous thrombosis and embolism; Z87.442 Personal history of urinary calculi; Z79.82 Long term (current) use of aspirin; Z79.899 Other long term (current) drug therapy; F17.210 Nicotine dependence, cigarettes, uncomplicated
CPT/HCPCS: 71045; 80048; 84484; 85025; 85379; 93005; 99284

== ENCOUNTER 2021-05-21 15:25 | Emergency (ER) | payer MEDICAID, SELFPAY ==
[2021-05-21 15:26] VITALS: BP 130/83; PULSE 69; RESP 16; TEMP 36.6; O2SAT 98; BMI 42.3
--- NOTE | 2021-05-21 15:50 | ED.VIS.BACK ---
HPI History of Present Illness Chief Complaint: Back Informant: patient Onset/Context/Timing Onset: Days (4 days) Context: Gradual Onset Timing: Waxes and wanes Quality: Aching and Throbbing Location: Thoracic Current Severity: Moderate Maximum Severity: Severe Worsened by: improves with Movement Narrative Narrative: Patient presents with recurrent back pain. He states he was told he has an extra vertebrae in his back and will occasionally have flares of back pain. 4 days ago he developed pain in the lower thoracic region radiating around the right. He states it is not similar to his prior kidney stones. It is worse with movement and more consistent with musculoskeletal pain. He has been trying [id number] medications without improvement. He denies recent injury. [facility] Medical History ADHD Adrenal benign tumor Anemia Benign essential HTN Bipolar disorder Chronic pain Degenerative disc disease GERD (gastroesophageal reflux disease) History of DVT (deep vein thrombosis) Hypertension Kidney stones Migraines Obstructive sleep apnea Smoker Substance abuse Home Medications Quetiapine Fumarate [Seroquel Xr] 400 mg PO QHS 04/08/20 [History Last Taken 11/24/20] fluoxetine 40 mg PO QHS 04/08/20 [History Last Taken 11/24/20] gabapentin 300 mg PO BID PRN 04/08/20 [History Last Taken Unknown] gabapentin 300 mg PO QHS 04/08/20 [History Last Taken 11/24/20] oxcarbazepine 300 mg PO DAILY 04/08/20 [History Last Taken 11/24/20] oxcarbazepine 900 mg PO QHS 04/08/20 [History Last Taken 11/24/20] ondansetron 4 mg PO Q8H PRN PRN #10 tablet 10/12/20 [Rx Last Taken Unknown] ibuprofen [IBU] 600 mg PO Q8H PRN 11/25/20 [History Last Taken 11/25/20 04:40] pantoprazole 40 mg PO DAILY 11/25/20 [History Last Taken 11/25/20] aspirin 81 mg PO DAILY #30 tab 11/28/20 [Rx Last Taken Unknown] atorvastatin 40 mg PO QHS #30 tab 11/28/20 [Rx Last Taken Unknown] diphenhydramine HCl [Benadryl] 25 mg PO QHS PRN #0 cap 11/28/20 [Rx Last Taken 11/24/20] lisinopril 5 mg PO DAILY #0 tab 11/28/20 [Rx Last Taken 11/25/20] metoprolol tartrate 12.5 mg PO BID #0 tab 11/28/20 [Rx Last Taken 11/25/20] cyclobenzaprine 10 mg PO BID PRN #10 tab 05/21/21 [Rx Last Taken Unknown] hydrocodone-acetaminophen 1 tab PO Q6H PRN 3 Days #10 tab 05/21/21 [Rx Last Taken Unknown] lidocaine [Lidoderm] 1 patch TOPICAL DAILY #6 ea 05/21/21 [Rx Last Taken Unknown] naproxen [Naprosyn] 500 mg PO BID PRN #20 tab 05/21/21 [Rx Last Taken Unknown] Allergy/AdvReac Type Severity Reaction Status Date / Time cinnamon Allergy Anaphylaxis Verified 05/21/21 15:28 codeine Allergy PT UNSURE Verified 05/21/21 15:28 OF REACTION Surgical History H/O lithotripsy History of colonoscopy History of esophagogastroduodenoscopy (EGD) History of total adrenalectomy Hx of tonsillectomy Social History Smoking Status: Current every day smoker tobacco type: cigarettes substance use type: does not use ROS ROS ED Constitutional Constitutional ED: Denies chills or fever(s) Cardiovascular Cardiovascular: Denies chest pain Respiratory/Chest Respiratory/Chest: Denies cough or dyspnea Gastrointestinal Gastrointestinal: Denies abdominal pain, nausea or vomiting Genitourinary Genitourinary ED: Denies dysuria Musculoskeletal Musculoskeletal: Reports back pain Integumentary Denies rash Neurologic Neurologic: Denies headache(s), paresthesias or weakness Allergic/Immunologic Allergic/Immunologic ED: Denies urticaria EXAM Physical Exam Const Vital Signs: 05/21/21 15:26 Temperature 97.9 F Temperature Source Temporal Pulse Rate 69 Respiratory Rate 16 Blood Pressure 130/83 H Blood Pressure Mean 98 Pulse Ox 98 Oxygen Delivery Method Room Air Positive well nourished and well developed General Appearance ED: well developed HEENT Reports moist mucous membranes Eyes PERRL and EOMs intact bilaterally Neck supple Resp normal respiratory effort and clear to auscultation bilaterally Cardio regular rate and regular rhythm GI normal to inspection, nondistended, normoactive bowel sounds, soft to palpation and non-tender Back/Spine Back/Spine Narrative: Reproducible tenderness in the low thoracic right paraspinal muscles. Minimal midline tenderness. Extremity normal to inspection Neuro oriented x3 Sensorium / Orientation: alert Psych mental status grossly normal Skin no rashes or lesions noted [facility] Treatment and Re-Evaluation Comments:: OARRS report was performed. Last narcotic was prescribed in November. Patient will be given a short course of [place], Naprosyn, Flexeril, Lidoderm patches. Patient is to follow-up with his primary care physician. Discharge Plan Triage Chief Complaint: Back ED Provider: Rachael Ha Dx/Rx/DC Orders Clinical Impression: Spasm of paraspinal muscle, Back pain Instructions: ED Back Pain (Acute or Chronic), ED Back Spasm, No Trauma Prescriptions: New naproxen [Naprosyn] 500 mg tablet 500 mg PO BID PRN (Reason: pain) Qty: 20 RF: 0 cyclobenzaprine 10 mg tablet 10 mg PO BID PRN (Reason: muscle spasm) Qty: 10 RF: 0 hydrocodone-acetaminophen 5-325 mg tablet 1 tab PO Q6H PRN (Reason: pain) 3 Days Qty: 10 RF: 0 lidocaine [Lidoderm] 5 % adhesive patch,medicated 1 patch topical DAILY Qty: 6 RF: 0 No Action oxcarbazepine 300 MG tablet 300 mg PO DAILY RF: 0 oxcarbazepine 300 MG tablet 900 mg PO QHS RF: 0 gabapentin 300 MG capsule 300 mg PO QHS RF: 0 fluoxetine 20 MG capsule 40 mg PO QHS RF: 0 gabapentin 300 MG capsule 300 mg PO BID PRN (Reason: mood) RF: 0 Quetiapine Fumarate [Seroquel Xr] 400 MG Tab.Sr.24h 400 mg PO QHS RF: 0 ondansetron 4 MG tablet 4 mg PO Q8H PRN PRN (Reason: Nausea) Qty: 10 RF: 0 ibuprofen [IBU] 600 mg tablet 600 mg PO Q8H PRN (Reason: Pain) RF: 0 pantoprazole 40 MG tablet,delayed release (DR/EC) 40 mg PO DAILY RF: 0 atorvastatin 40 mg Tablet 40 mg PO QHS Qty: 30 RF: 1 diphenhydramine HCl [Benadryl] 25 mg Capsule 25 mg PO QHS PRN (Reason: Sleep) Qty: 0 RF: 0 lisinopril 2.5 MG tablet 5 mg PO DAILY Qty: 0 RF: 0 metoprolol tartrate 25 MG tablet 12.5 mg PO BID Qty: 0 RF: 0 aspirin 81 mg Tablet,Chewable 81 mg PO DAILY Qty: 30 RF: 2 Primary Care Provider: [facility] [address] Doctor,Out of Referrals: [facility] [address] Doctor,Out of [Primary Care Provider] - 1-2 Weeks Disposition Disposition: Home, Self Care
[2021-05-21] MEDS: Lidocaine 5% Patch 1 PATCH TOPICAL (16:15)
[2021-05-21] MEDS: Naproxen 500 MG Tablet PO (16:16)
[2021-05-21] MEDS: HYDROcodone Bitartrate/Apap 5/325 Tablet PO (16:18)
[2021-05-21] MEDS: cycloBENZAPRine HCl 10 MG Tablet PO (16:18)
== END 2021-05-21 16:28 | disposition home or self-care (01) ==
PROVIDERS: Emergency Provider Emergency Medicine
DX: M62.830 Muscle spasm of back (principal); I10 Essential (primary) hypertension; F31.9 Bipolar disorder, unspecified; F90.9 Attention-deficit hyperactivity disorder, unspecified type; G43.909 Migraine, unspecified, not intractable, without status migrainosus; G47.33 Obstructive sleep apnea (adult) (pediatric); G89.29 Other chronic pain; K21.9 Gastro-esophageal reflux disease without esophagitis; Z86.718 Personal history of other venous thrombosis and embolism; Z87.442 Personal history of urinary calculi; Z79.82 Long term (current) use of aspirin; Z79.899 Other long term (current) drug therapy; F17.210 Nicotine dependence, cigarettes, uncomplicated
CPT/HCPCS: 99284

== ENCOUNTER 2021-07-27 19:25 | Emergency (ER) | payer MEDICAID, SELFPAY ==
[2021-07-27 19:26] VITALS: BP 160/98; PULSE 83; RESP 28; TEMP 36.3; O2SAT 98; BMI 41.1
--- NOTE | 2021-07-27 20:01 | RAD_ITS ---
STUDY: X-RAY CHEST REASON FOR EXAM: Male, 35 years old. chest pain/sob/covid TECHNIQUE: Single AP portable view of the chest. COMPARISON: 03/07/2021. FINDINGS: The lungs are clear and expanded. There is no demonstrated pleural abnormality. Large hiatal hernia. Normal size heart. Normal visualized pulmonary arteries. Normal visualized aortic arch and descending thoracic aorta. Normal visualized thoracic spine. Normal visualized ribs, clavicles, and shoulders. There is no demonstrated abnormality of the visualized soft tissue structures of the upper abdomen. RAD/Chest 1 View (Portable) IMPRESSION: No acute findings. Large hiatal hernia. Electronically Signed: Isabel Verdugo MD at 20:39 EST Tel , Service support ,
--- NOTE | 2021-07-27 20:01 | EKG12_ITS ---
Test Reason : COVID Blood Pressure : / mmHG Vent. Rate : 078 BPM Atrial Rate : 078 BPM P-R Int : 150 ms QRS Dur : 086 ms QT Int : 384 ms P-R-T Axes : 023 015 055 degrees QTc Int : 437 ms Normal sinus rhythm Normal ECG Confirmed by SHAWN BOWLING, VINNIE ([id number]), society editor JACEY GILL ([id number]) on 07/31/2021 11:28:31 AM Referred By: MAYCOL Confirmed By:VINNIE ESCOBAR MD
--- NOTE | 2021-07-27 20:02 | EDS_ITS ---
HPI History of Present Illness Chief Complaint: Shortness of Breath Informant: patient Associated Symptoms cough Chest Pain: Positive for None Narrative Narrative: Patient has been ill with COVID symptoms for the past approximately 17 days. He tested +3 days ago on 07/24 for COVID. He states he has had fevers the whole time, for over 2 weeks. Just today, he started having chest heaviness that is worse with coughing, worse with deep inspiration, not well localized across his substernal area, as well as some dyspnea. Denies any leg pain or swelling although he has myalgias that affect his legs and it is symmetric. He had the [employer] vaccine last year. [facility] Medical History ADHD Adrenal benign tumor Anemia Benign essential HTN Bipolar disorder Chronic pain Degenerative disc disease GERD (gastroesophageal reflux disease) History of DVT (deep vein thrombosis) Hypertension Kidney stones Migraines Obstructive sleep apnea Smoker Substance abuse Home Medications Quetiapine Fumarate [Seroquel Xr] 400 mg PO QHS 04/08/20 [History Last Taken 11/24/20] fluoxetine 40 mg PO QHS 04/08/20 [History Last Taken 11/24/20] gabapentin 300 mg PO BID PRN 04/08/20 [History Last Taken Unknown] gabapentin 300 mg PO QHS 04/08/20 [History Last Taken 11/24/20] oxcarbazepine 300 mg PO DAILY 04/08/20 [History Last Taken 11/24/20] oxcarbazepine 900 mg PO QHS 04/08/20 [History Last Taken 11/24/20] ondansetron 4 mg PO Q8H PRN PRN #10 tablet 10/12/20 [Rx Last Taken Unknown] ibuprofen [IBU] 600 mg PO Q8H PRN 11/25/20 [History Last Taken 11/25/20 04:40] pantoprazole 40 mg PO DAILY 11/25/20 [History Last Taken 11/25/20] aspirin 81 mg PO DAILY #30 tab 11/28/20 [Rx Last Taken Unknown] atorvastatin 40 mg PO QHS #30 tab 11/28/20 [Rx Last Taken Unknown] diphenhydramine HCl [Benadryl] 25 mg PO QHS PRN #0 cap 11/28/20 [Rx Last Taken 11/24/20] lisinopril 5 mg PO DAILY #0 tab 11/28/20 [Rx Last Taken 11/25/20] metoprolol tartrate 12.5 mg PO BID #0 tab 11/28/20 [Rx Last Taken 11/25/20] cyclobenzaprine 10 mg PO BID PRN #10 tab 05/21/21 [Rx Last Taken Unknown] hydrocodone-acetaminophen 1 tab PO Q6H PRN 3 Days #10 tab 05/21/21 [Rx Last Taken Unknown] lidocaine [Lidoderm] 1 patch TOPICAL DAILY #6 ea 05/21/21 [Rx Last Taken Unknown] naproxen [Naprosyn] 500 mg PO BID PRN #20 tab 05/21/21 [Rx Last Taken Unknown] Allergy/AdvReac Type Severity Reaction Status Date / Time cinnamon Allergy Anaphylaxis Verified 05/21/21 15:28 codeine Allergy PT UNSURE Verified 05/21/21 15:28 OF REACTION Surgical History H/O lithotripsy History of colonoscopy History of esophagogastroduodenoscopy (EGD) History of total adrenalectomy Hx of tonsillectomy Social History Smoking Status: Former smoker substance use type: does not use ROS ROS ED Constitutional Constitutional ED: Reports body ache(s), chills, fatigue, fever(s), headache(s) and malaise Eyes Eyes: Denies change in vision or diplopia ENT ENT ED: Denies rhinorrhea or sore throat Cardiovascular Cardiovascular: Reports chest pain; Denies palpitations Respiratory/Chest Respiratory/Chest: Reports cough, dyspnea and dyspnea on exertion Gastrointestinal Gastrointestinal: Denies abdominal pain, diarrhea, nausea or vomiting Genitourinary Genitourinary ED: Denies dysuria or hematuria Musculoskeletal Musculoskeletal: Denies back pain or neck pain Integumentary Denies abscess or rash Neurologic Neurologic: Reports headache(s); Denies paresthesias or weakness Psychiatric Psychiatric: Denies anxiety or suicidal thoughts EXAM Physical Exam Const Vital Signs: 07/27/21 19:26 07/27/21 20:22 Temperature 97.4 F L Temperature Source Temporal Pulse Rate 83 Respiratory Rate 28 H Respiratory Effort Normal Non-Labored Respiratory Depth Normal Respiratory Pattern Normal Blood Pressure 160/98 H Blood Pressure Mean 118 Pulse Ox 98 Oxygen Delivery Method Room Air Room Air Positive well nourished and well developed Constitutional Narrative: Malaised-appearing, no distress General Appearance ED: well developed and NAD HEENT Reports moist mucous membranes normocephalic and atraumatic Eyes PERRL and EOMs intact bilaterally Neck full ROM and supple Resp normal respiratory effort and clear to auscultation bilaterally Cardio regular rate, regular rhythm and no murmurs Rate: Negative for tachycardic GI non-tender and non-distended Auscultation: normoactive bowel sounds Palpation: soft Back/Spine no CVA tenderness General Back: other FROM Extremity normal to inspection and no calf tenderness General Extremety ED: Negative for edema, pulses abnormal or tenderness General Extremity: Negative for edema or pulses abnormal Neuro oriented x3, CN's II-XII intact bilaterally and no sensory deficits noted Sensorium / Orientation: awake and alert Motor Exam: strength 5/5 throughout Skin no rashes or lesions noted and no wounds MDM MDM MDM Narrative Medical decision making narrative: Patient is D-dimer within normal limits, chest x-ray shows no signs of pneumonitis, and his other labs are normal including a leukopenia consistent with COVID. His oxygenation is excellent at 98%. Patient is reassured, discharged home advised to continue watching his oxygen levels. Lab Data Attestation: I reviewed the patient's lab results. Labs: Laboratory Results - last 24 hr 07/27/21 07/27/21 07/27/21 20:15 20:15 20:15 WBC 3.4 L RBC 4.76 Hgb 9.9 L Hct 34.8 L MCV 73.1 L MCH 20.8 L MCHC 28.4 L RDW Std Deviation 43.9 RDW Coeff of Michael 16.7 H Plt Count 232 MPV 9.5 Immature Gran % (Auto) 0.300 Neut % (Auto) 43.2 L Lymph % (Auto) 47.9 H [place] % (Auto) 7.4 Eos % (Auto) 0.9 Baso % (Auto) 0.3 Absolute Neuts (auto) 1.5 L Absolute Lymphs (auto) 1.63 Nucleated RBC % 0 D-Dimer Quant (PE/DVT) 0.49 Sodium 141 Potassium 4.0 Chloride 111 H Carbon Dioxide 26.0 Anion Gap 4 L BUN 14 Creatinine 0.98 Estim Creat Clear Calc 110.99 Est GFR (MDRD) Af Amer 111 Est GFR (MDRD) Non-Af 92 BUN/Creatinine Ratio 14.4 Glucose 183 H Calcium 8.0 L Troponin I High Sens 7 Radiography Diagnostic Testing: Clinical Impression(s) from Imaging Studies Chest X-Ray 07/27/21 20:01 IMPRESSION: No acute findings. Large hiatal hernia. Electronically Signed: Isabel Verdugo MD at 20:39 EST Tel , Service support , EKG Initial EKG: Attestation: I personally reviewed and interpreted this EKG as follows: Interpretation: Sinus Rhythm and No Acute Injury Pattern Comments: normal EKG Discharge Plan Triage Chief Complaint: Shortness of Breath ED Provider: Otto Montaño Dx/Rx/DC Orders Clinical Impression: COVID-19 Instructions: Coronavirus Disease 2019 (COVID-19): Caring for Yourself or Others Prescriptions: No Action oxcarbazepine 300 MG tablet 300 mg PO DAILY RF: 0 oxcarbazepine 300 MG tablet 900 mg PO QHS RF: 0 gabapentin 300 MG capsule 300 mg PO QHS RF: 0 fluoxetine 20 MG capsule 40 mg PO QHS RF: 0 gabapentin 300 MG capsule 300 mg PO BID PRN (Reason: mood) RF: 0 Quetiapine Fumarate [Seroquel Xr] 400 MG Tab.Sr.24h 400 mg PO QHS RF: 0 ondansetron 4 MG tablet 4 mg PO Q8H PRN PRN (Reason: Nausea) Qty: 10 RF: 0 ibuprofen [IBU] 600 mg tablet 600 mg PO Q8H PRN (Reason: Pain) RF: 0 pantoprazole 40 MG tablet,delayed release (DR/EC) 40 mg PO DAILY RF: 0 atorvastatin 40 mg Tablet 40 mg PO QHS Qty: 30 RF: 1 diphenhydramine HCl [Benadryl] 25 mg Capsule 25 mg PO QHS PRN (Reason: Sleep) Qty: 0 RF: 0 lisinopril 2.5 MG tablet 5 mg PO DAILY Qty: 0 RF: 0 metoprolol tartrate 25 MG tablet 12.5 mg PO BID Qty: 0 RF: 0 aspirin 81 mg Tablet,Chewable 81 mg PO DAILY Qty: 30 RF: 2 naproxen [Naprosyn] 500 mg tablet 500 mg PO BID PRN (Reason: pain) Qty: 20 RF: 0 cyclobenzaprine 10 mg tablet 10 mg PO BID PRN (Reason: muscle spasm) Qty: 10 RF: 0 hydrocodone-acetaminophen 5-325 mg tablet 1 tab PO Q6H PRN (Reason: pain) 3 Days Qty: 10 RF: 0 lidocaine [Lidoderm] 5 % adhesive patch,medicated 1 patch topical DAILY Qty: 6 RF: 0 Primary Care Provider: Care Physician,No Primary Referrals: Care Physician,No Primary [Primary Care Provider] - Doctor,Your [STAFF PHYSICIAN] - 1 Week if not improving Activity Restrictions/Additional Instructions: Try to get a home portable pulse oximeter and closely watch your oxygen levels periodically. If you stay below 90% for more than a minute or so, and/or you are feeling like your breathing is getting worse, return to the emergency department for further evaluation. Disposition Disposition: Home, Self Care
[2021-07-27 20:22] VITALS: O2SAT 97
[2021-07-27 20:22] LABS: Absolute Lymphocyte Count 1.63 X10^3/uL (0.83-4.51); Absolute Neutrophil Count 1.5 X10^3/uL (2.0-7.7); Basophil# 0.01 X10^3/uL; Basophil% 0.3 % (0-1); Eosinophil# 0.03 X10^3/uL; Eosinophils% 0.9 % (0-5); Hematocrit 34.8 % (40-54); Hemoglobin 9.9 g/dL (13.0-16.5); Lymphocyte # 1.63 X10^3/ul (0.83-4.51); Lymphocyte % 47.9 % (19-41); Mean Corp Hgb Conc 28.4 g/dL (32-36); Mean Corpuscular Hgb 20.8 pg (27.0-32.0); Mean Corpuscular Volume 73.1 fL (80-94); Mean Platelet Vol. 9.5 fl (6.2-12.0); Monocyte# 0.25 X10^3/uL; Monocyte% 7.4 % (0-10); NRBC Flagged by Analyzer 0 % (0-5); Neutrophil # 1.47 X10^3/uL (2.7-7.7); Neutrophil % 43.2 % (47-70); Platelet Count 232 K/mm3 (150-450); RBC Distribution Width CV 16.7 % (11.6-14.6); RBC Distribution Width SD 43.9 fl (35.1-43.9); Red Blood Count 4.76 M/mm3 (4.6-6.2); White Blood Count 3.4 K/mm3 (4.4-11.0)
[2021-07-27 20:36] LABS: D-Dimer Quantitative (DVT/PE) 0.49 FEU/ug/m (0.27-0.49)
[2021-07-27 20:40] LABS: Anion Gap 4 (5-15); BUN 14 mg/dL (7-18); BUN/Creat Ratio 14.4 RATIO (10-20); Chloride 111 mmol/L (98-107); Creatinine, Serum 0.98 mg/dL (0.70-1.30); EST Glomerular Filtration Rate 92 mL/min (>60); Est Glom Filt Rate - Afr Amer 111 mL/min (>60); Estimated Creatinine Clearance 110.99 ml/min; Glucose 183 mg/dL (74-106); Sodium Level 141 mmol/L (136-145); Troponin-I HS 7 pg/mL (3.0-78.0)
[2021-07-27] MEDS: Ketorolac 30 MG/ML Syringe IV (21:39)
== END 2021-07-27 21:44 | disposition home or self-care (01) ==
PROVIDERS: Emergency Provider Emergency Medicine; Visit Provider Emergency Medicine
DX: U07.1 COVID-19 (principal); F31.9 Bipolar disorder, unspecified; Z87.891 Personal history of nicotine dependence; I10 Essential (primary) hypertension; F90.9 Attention-deficit hyperactivity disorder, unspecified type; G89.29 Other chronic pain; M19.90 Unspecified osteoarthritis, unspecified site; K21.9 Gastro-esophageal reflux disease without esophagitis; Z86.718 Personal history of other venous thrombosis and embolism; Z87.442 Personal history of urinary calculi; G43.909 Migraine, unspecified, not intractable, without status migrainosus; G47.33 Obstructive sleep apnea (adult) (pediatric); Z79.899 Other long term (current) drug therapy; Z79.82 Long term (current) use of aspirin
CPT/HCPCS: 71045; 80048; 84484; 85025; 85379; 93005; 96374; 99284; A4216

== ENCOUNTER 2021-08-08 16:54 | Emergency (ER) | payer MEDICAID, SELFPAY ==
[2021-08-08 16:56] VITALS: BP 171/105; PULSE 84; RESP 18; TEMP 36.1; O2SAT 100; BMI 41.1
[2021-08-08 17:09] VITALS: O2SAT 99
--- NOTE | 2021-08-08 17:13 | EKG12_ITS ---
Test Reason : SOB Blood Pressure : / mmHG Vent. Rate : 077 BPM Atrial Rate : 077 BPM P-R Int : 162 ms QRS Dur : 082 ms QT Int : 376 ms P-R-T Axes : 028 008 058 degrees QTc Int : 425 ms Poor data quality, interpretation may be adversely affected Normal sinus rhythm Normal ECG Confirmed by AURORA BOWLING, LISET ([id number]), telegraph editor RONALD BALLESTEROS ([id number]) on 08/10/2021 9:07:25 AM Referred By: WILBERTO Confirmed By:LISET SIMON MD
--- NOTE | 2021-08-08 17:14 | EX.ED.DYSGE1 ---
HPI History of Present Illness Chief Complaint: Shortness of Breath Informant: patient Narrative Narrative: 36-year-old male presents to the emergency department with shortness of breath. Patient states that earlier this month he tested positive for Covid. States about a week ago he needed to go to to an urgent care where he states that they did a chest x-ray told him that he had pneumonia as an ear infection and then placed him on doxycycline prednisone and albuterol. He states that he feels that his breathing has worsened he is having tightness in his chest and continued ear pain. No further fevers. Triage has him at 100% on room air with respirations of 18. [facility] Medical History ADHD Adrenal benign tumor Anemia Benign essential HTN Bipolar disorder Chronic pain Degenerative disc disease GERD (gastroesophageal reflux disease) Hiatal hernia History of DVT (deep vein thrombosis) Hypertension Kidney stones Migraines Obstructive sleep apnea Smoker Substance abuse Home Medications Quetiapine Fumarate [Seroquel Xr] 400 mg PO QHS 04/08/20 [History Last Taken 11/24/20] fluoxetine 40 mg PO QHS 04/08/20 [History Last Taken 11/24/20] gabapentin 300 mg PO BID PRN 04/08/20 [History Last Taken Unknown] gabapentin 300 mg PO QHS 04/08/20 [History Last Taken 11/24/20] oxcarbazepine 300 mg PO DAILY 04/08/20 [History Last Taken 11/24/20] oxcarbazepine 900 mg PO QHS 04/08/20 [History Last Taken 11/24/20] ondansetron 4 mg PO Q8H PRN PRN #10 tablet 10/12/20 [Rx Last Taken Unknown] ibuprofen [IBU] 600 mg PO Q8H PRN 11/25/20 [History Last Taken 11/25/20 04:40] pantoprazole 40 mg PO DAILY 11/25/20 [History Last Taken 11/25/20] aspirin 81 mg PO DAILY #30 tab 11/28/20 [Rx Last Taken Unknown] atorvastatin 40 mg PO QHS #30 tab 11/28/20 [Rx Last Taken Unknown] diphenhydramine HCl [Benadryl] 25 mg PO QHS PRN #0 cap 11/28/20 [Rx Last Taken 11/24/20] lisinopril 5 mg PO DAILY #0 tab 11/28/20 [Rx Last Taken 11/25/20] metoprolol tartrate 12.5 mg PO BID #0 tab 11/28/20 [Rx Last Taken 11/25/20] cyclobenzaprine 10 mg PO BID PRN #10 tab 05/21/21 [Rx Last Taken Unknown] hydrocodone-acetaminophen 1 tab PO Q6H PRN 3 Days #10 tab 05/21/21 [Rx Last Taken Unknown] lidocaine [Lidoderm] 1 patch TOPICAL DAILY #6 ea 05/21/21 [Rx Last Taken Unknown] naproxen [Naprosyn] 500 mg PO BID PRN #20 tab 05/21/21 [Rx Last Taken Unknown] cefdinir 300 mg PO BID #20 cap 08/08/21 [Rx Last Taken Unknown] Allergy/AdvReac Type Severity Reaction Status Date / Time cinnamon Allergy Anaphylaxis Verified 08/08/21 16:59 codeine Allergy PT UNSURE Verified 08/08/21 16:59 OF REACTION Surgical History H/O lithotripsy History of colonoscopy History of esophagogastroduodenoscopy (EGD) History of total adrenalectomy Hx of tonsillectomy Social History Smoking Status: Former smoker substance use type: does not use ROS ROS ED Constitutional Constitutional ED: Denies chills, fever(s) or weight loss Eyes Eyes: Denies change in vision or diplopia ENT ENT ED: Reports ear pain; Denies rhinorrhea or sore throat Cardiovascular Cardiovascular: Denies chest pain, orthopnea, palpitations or racing heartbeat Respiratory/Chest Respiratory/Chest: Reports cough, dyspnea and dyspnea on exertion; Denies orthopnea Gastrointestinal Gastrointestinal: Denies abdominal pain, diarrhea, nausea or vomiting Genitourinary Genitourinary ED: Denies dysuria, hematuria or urinary frequency Musculoskeletal Musculoskeletal: Denies arthralgias or myalgias Integumentary Denies abscess or rash Neurologic Neurologic: Denies headache(s) or weakness Psychiatric Psychiatric: Denies anxiety, depression, suicidal ideation or suicidal thoughts Endocrine Endocrinology: Denies polydipsia, polyphagia or polyuria Allergic/Immunologic Allergic/Immunologic ED: Denies mouth swelling, tongue swelling or urticaria EXAM Physical Exam Const Vital Signs: 08/08/21 16:56 08/08/21 17:09 Temperature 97 F L Temperature Source Temporal Pulse Rate 84 Respiratory Rate 18 Respiratory Effort Short of Breath Respiratory Depth Normal Respiratory Pattern Tachypnea Blood Pressure 171/105 H Blood Pressure Mean 127 Pulse Ox 100 Oxygen Delivery Method Room Air Room Air Positive well nourished, well developed and obese General Appearance ED: well developed Nutritional Appearance: obese HEENT Reports normocephalic, head/scalp atraumatic and moist mucous membranes HEENT Narrative: There is bilateral tympanic membrane erythema with loss of landmarks. No evidence of perforation. Mild turbinate edema. Negative for trauma Eyes PERRL and EOMs intact bilaterally Neck no lymphadenopathy, supple and no JVD Resp normal respiratory effort and clear to auscultation bilaterally Cardio regular rate, regular rhythm and no murmurs GI normal to inspection, nondistended, normoactive bowel sounds and non-tender Palpation: soft Back/Spine no CVA tenderness and normal ROM Extremity normal to inspection General Extremety ED: Negative for edema General Extremity: Negative for edema Neuro oriented x3 and CN's II-XII intact bilaterally Sensorium / Orientation: alert Motor Exam: strength 5/5 throughout Psych mental status grossly normal Mood & Affect: Negative for depressed or tearful Skin no rashes or lesions noted and no wounds MDM MDM MDM Narrative Medical decision making narrative: White count 7.4 with a hemoglobin of 9.8. D-dimer 0.37. Troponin is at 4. Glucose 142. Patient has remained 97 to 100% on room air. My interpretation of the chest x-ray is large hiatal hernia (which is known to the patient) but no acute infiltrations. Patient will need an antibiotic for his ears. I will place him on Omnicef. Would recommend primary care follow-up. His anemia is known and he plans plans to see hematology. Lab Data Attestation: I reviewed the patient's lab results. Labs: Laboratory Results - last 24 hr 08/08/21 08/08/21 08/08/21 17:25 17:25 17:25 WBC 7.4 RBC 4.56 L Hgb 9.8 L Hct 33.4 L MCV 73.2 L MCH 21.5 L MCHC 29.3 L RDW Std Deviation 43.5 RDW Coeff of Michael 16.7 H Plt Count 344 MPV 9.9 Immature Gran % (Auto) 0.400 Neut % (Auto) 81.6 H Lymph % (Auto) 14.8 L [place] % (Auto) 2.7 Eos % (Auto) 0.0 Baso % (Auto) 0.5 Absolute Neuts (auto) 6.1 Absolute Lymphs (auto) 1.10 Nucleated RBC % 0 D-Dimer Quant (PE/DVT) 0.37 Sodium 141 Potassium 4.5 Chloride 111 H Carbon Dioxide 22.0 Anion Gap 8 BUN 16 Creatinine 1.22 Estim Creat Clear Calc 88.30 Est GFR (MDRD) Af Amer 86 Est GFR (MDRD) Non-Af 71 BUN/Creatinine Ratio 13.1 Glucose 142 H Calcium 8.5 Total Bilirubin 0.20 AST 37 ALT 60 Alkaline Phosphatase 87 Troponin I High Sens 4 Total Protein 7.5 Albumin 3.2 Globulin 4.3 H Albumin/Globulin Ratio 0.7 L Radiography Diagnostic Testing: Clinical Impression(s) from Imaging Studies Chest X-Ray 08/08/21 17:30 IMPRESSION: No acute findings in the chest. Electronically Signed: Jayy Wang MD at 17:39 EST Reading Location ID and State: [facility] / [place] , Service support , Discharge Plan Triage Chief Complaint: Shortness of Breath ED Provider: Fernandez Ram Dx/Rx/DC Orders Clinical Impression: Hiatal hernia, Anemia, Acute dyspnea, Otitis media Instructions: ED Dyspnea Prescriptions: New cefdinir 300 mg capsule 300 mg PO BID Qty: 20 RF: 0 No Action oxcarbazepine 300 MG tablet 300 mg PO DAILY RF: 0 oxcarbazepine 300 MG tablet 900 mg PO QHS RF: 0 gabapentin 300 MG capsule 300 mg PO QHS RF: 0 fluoxetine 20 MG capsule 40 mg PO QHS RF: 0 gabapentin 300 MG capsule 300 mg PO BID PRN (Reason: mood) RF: 0 Quetiapine Fumarate [Seroquel Xr] 400 MG Tab.Sr.24h 400 mg PO QHS RF: 0 ondansetron 4 MG tablet 4 mg PO Q8H PRN PRN (Reason: Nausea) Qty: 10 RF: 0 ibuprofen [IBU] 600 mg tablet 600 mg PO Q8H PRN (Reason: Pain) RF: 0 pantoprazole 40 MG tablet,delayed release (DR/EC) 40 mg PO DAILY RF: 0 atorvastatin 40 mg Tablet 40 mg PO QHS Qty: 30 RF: 1 diphenhydramine HCl [Benadryl] 25 mg Capsule 25 mg PO QHS PRN (Reason: Sleep) Qty: 0 RF: 0 lisinopril 2.5 MG tablet 5 mg PO DAILY Qty: 0 RF: 0 metoprolol tartrate 25 MG tablet 12.5 mg PO BID Qty: 0 RF: 0 aspirin 81 mg Tablet,Chewable 81 mg PO DAILY Qty: 30 RF: 2 naproxen [Naprosyn] 500 mg tablet 500 mg PO BID PRN (Reason: pain) Qty: 20 RF: 0 cyclobenzaprine 10 mg tablet 10 mg PO BID PRN (Reason: muscle spasm) Qty: 10 RF: 0 hydrocodone-acetaminophen 5-325 mg tablet 1 tab PO Q6H PRN (Reason: pain) 3 Days Qty: 10 RF: 0 lidocaine [Lidoderm] 5 % adhesive patch,medicated 1 patch topical DAILY Qty: 6 RF: 0 Referrals: EILEEN VOGEL [Other] - 1 Week Disposition Disposition: Home, Self Care
--- NOTE | 2021-08-08 17:30 | RAD_ITS ---
EXAM: XR CHEST, 1 VIEW CLINICAL INDICATION: cough TECHNIQUE: Frontal view of the chest. This report was created using [employer] report generation technology. COMPARISON: Jul 27 2021 8:11pm FINDINGS: LUNGS AND PLEURAL SPACES: Unremarkable. No consolidation or edema. No pneumothorax. No effusion. HEART: Unremarkable. Cardiac silhouette not enlarged. MEDIASTINUM: There is a hiatal hernia. BONES/JOINTS: Unremarkable. SOFT TISSUES: Unremarkable. RAD/Chest 1 View (Portable) IMPRESSION: No acute findings in the chest. Electronically Signed: Jayy Wang MD at 17:39 EST ,
[2021-08-08 17:33] LABS: Absolute Neutrophil Count 6.1 X10^3/uL (2.0-7.7); Basophil# 0.04 X10^3/uL; Basophil% 0.5 % (0-1); Hematocrit 33.4 % (40-54); Hemoglobin 9.8 g/dL (13.0-16.5); Lymphocyte % 14.8 % (19-41); Mean Corp Hgb Conc 29.3 g/dL (32-36); Mean Corpuscular Hgb 21.5 pg (27.0-32.0); Mean Corpuscular Volume 73.2 fL (80-94); Mean Platelet Vol. 9.9 fl (6.2-12.0); Monocyte% 2.7 % (0-10); NRBC Flagged by Analyzer 0 % (0-5); Neutrophil # 6.06 X10^3/uL (2.7-7.7); Neutrophil % 81.6 % (47-70); Platelet Count 344 K/mm3 (150-450); RBC Distribution Width CV 16.7 % (11.6-14.6); RBC Distribution Width SD 43.5 fl (35.1-43.9); Red Blood Count 4.56 M/mm3 (4.6-6.2); White Blood Count 7.4 K/mm3 (4.4-11.0)
[2021-08-08 18:01] LABS: ALB/GLOB Ratio 0.7 RATIO (0.9-2.4); AST(SGOT) 37 U/L (15-37); Alanine Aminotransfer ALT/SGPT 60 U/L (16-61); Albumin, Serum 3.2 g/dL (3.2-5.0); Alkaline Phosphatase 87 U/L (45-117); Anion Gap 8 (5-15); BUN 16 mg/dL (7-18); BUN/Creat Ratio 13.1 RATIO (10-20); Calcium,Total 8.5 mg/dL (8.5-10.1); Chloride 111 mmol/L (98-107); Creatinine, Serum 1.22 mg/dL (0.70-1.30); EST Glomerular Filtration Rate 71 mL/min (>60); Est Glom Filt Rate - Afr Amer 86 mL/min (>60); Globulin 4.3 g/dL (2.2-4.2); Glucose 142 mg/dL (74-106); Potassium 4.5 mmol/L (3.5-5.1); Protein, Total 7.5 g/dL (6.4-8.2); Sodium Level 141 mmol/L (136-145); Troponin-I HS 4 pg/mL (3.0-78.0)
[2021-08-08 18:06] LABS: D-Dimer Quantitative (DVT/PE) 0.37 FEU/ug/m (0.27-0.49)
[2021-08-08] MEDS: Cefdinir 300 MG Capsule PO (18:53)
== END 2021-08-08 19:06 | disposition home or self-care (01) ==
PROVIDERS: Emergency Provider Emergency Medicine; Visit Provider Emergency Medicine
DX: R06.02 Shortness of breath (principal); F31.9 Bipolar disorder, unspecified; Z68.41 Body mass index [BMI] 40.0-44.9, adult; H66.93 Otitis media, unspecified, bilateral; K44.9 Diaphragmatic hernia without obstruction or gangrene; I10 Essential (primary) hypertension; K21.9 Gastro-esophageal reflux disease without esophagitis; E66.9 Obesity, unspecified; Z79.899 Other long term (current) drug therapy; Z79.82 Long term (current) use of aspirin; Z87.891 Personal history of nicotine dependence
CPT/HCPCS: 71045; 80053; 84484; 85025; 85379; 93005; 99284; A4216

== ENCOUNTER 2021-09-13 15:58 | Emergency (ER) | payer MEDICAID, SELFPAY ==
[2021-09-13 15:59] VITALS: BP 137/91; PULSE 78; RESP 15; TEMP 36.6; O2SAT 97; BMI 43.2
--- NOTE | 2021-09-13 16:17 | CT_ITS ---
STUDY: CT LUMBAR SPINE WITHOUT CONTRAST REASON FOR EXAM: Male, 36 years old. Pain RADIATION DOSAGE (If Supplied By Facility): CTDIvol = ( 59.36 ) mGy, DLP = ( 1947.62 ) mGycm TECHNIQUE: The patient was scanned in a multi detector CT scanner. High resolution transaxial imaging was performed. Images were obtained from L1 to sacrum. Sagittal and coronal images were reconstructed. Individualized dose optimization techniques were used for this CT. COMPARISON: None FINDINGS: Normal lumbar lordosis. There is no substantial scoliosis. Normal vertebrae of the lumbar spine. L1-2: Normal endplates. Normal disc height and morphology. Normal bilateral facet joints. Normal central canal and bilateral lateral recesses. Normal bilateral intervertebral neural foramina. L2-3: Normal endplates. Normal disc height and morphology. Normal bilateral facet joints. Normal central canal and bilateral lateral recesses. Normal bilateral intervertebral neural foramina. L3-4: Normal endplates. Normal disc height with a central disc protrusion. Degenerative hypertrophy and possible old injury of the right facet joint. Normal central canal and bilateral lateral recesses. Normal bilateral intervertebral neural foramina. L4-5: Normal endplates. Normal disc height with a central disc protrusion. Degenerative hypertrophy of the bilateral facet joints. Normal central canal and bilateral lateral recesses. Normal bilateral intervertebral neural foramina. L5-S1: Normal endplates. Narrowed disc height. Mild degenerative hypertrophy of the bilateral facet joints. Normal central canal and bilateral lateral recesses. Facet hypertrophy and degenerative spurring narrowing the left intervertebral neural foramen. Normal visualized paraspinous soft tissue structures. CT/Spine Lumbar without Contrast IMPRESSION: Degenerative changes and discogenic disease as noted of the lumbar spine. Correlation with MRI is recommended. Electronically Signed: Rao Belcher DO at 17:02 EST Reading Location ID and State: [facility] / [place] Tel [phone], Service support ,
--- NOTE | 2021-09-13 16:17 | ED.VIS.BACK ---
HPI History of Present Illness Chief Complaint: Back Informant: patient Narrative Narrative: Nontraumatic lower back pain for the past 2 days. Pain to both legs to his knees in the front. No loss of bowel or bladder control. Denies any heavy lifting. States he had microfractures of his lower lumbar spine over 10 years ago told by a spinal surgeon. There is no surgical intervention. Been using Tylenol no relief. Had a history of gastric ulcers or kidney injury. Allergies to codeine however as tolerated other opiates. Denies any urinary symptoms. 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 Prior similar symptoms: Yes PFSH [facility] Medical History ADHD Adrenal benign tumor Anemia Benign essential HTN Bipolar disorder Chronic pain Degenerative disc disease GERD (gastroesophageal reflux disease) Hiatal hernia History of DVT (deep vein thrombosis) Hypertension Kidney stones Migraines Obstructive sleep apnea Smoker Substance abuse Home Medications Quetiapine Fumarate [Seroquel Xr] 400 mg PO QHS 04/08/20 [History Last Taken 11/24/20] fluoxetine 40 mg PO QHS 04/08/20 [History Last Taken 11/24/20] gabapentin 300 mg PO BID PRN 04/08/20 [History Last Taken Unknown] gabapentin 300 mg PO QHS 04/08/20 [History Last Taken 11/24/20] oxcarbazepine 300 mg PO DAILY 04/08/20 [History Last Taken 11/24/20] oxcarbazepine 900 mg PO QHS 04/08/20 [History Last Taken 11/24/20] ondansetron 4 mg PO Q8H PRN PRN #10 tablet 10/12/20 [Rx Last Taken Unknown] ibuprofen [IBU] 600 mg PO Q8H PRN 11/25/20 [History Last Taken 11/25/20 04:40] pantoprazole 40 mg PO DAILY 11/25/20 [History Last Taken 11/25/20] aspirin 81 mg PO DAILY #30 tab 11/28/20 [Rx Last Taken Unknown] atorvastatin 40 mg PO QHS #30 tab 11/28/20 [Rx Last Taken Unknown] diphenhydramine HCl [Benadryl] 25 mg PO QHS PRN #0 cap 11/28/20 [Rx Last Taken 11/24/20] lisinopril 5 mg PO DAILY #0 tab 11/28/20 [Rx Last Taken 11/25/20] metoprolol tartrate 12.5 mg PO BID #0 tab 11/28/20 [Rx Last Taken 11/25/20] cyclobenzaprine 10 mg PO BID PRN #10 tab 05/21/21 [Rx Last Taken Unknown] hydrocodone-acetaminophen 1 tab PO Q6H PRN 3 Days #10 tab 05/21/21 [Rx Last Taken Unknown] lidocaine [Lidoderm] 1 patch TOPICAL DAILY #6 ea 05/21/21 [Rx Last Taken Unknown] naproxen [Naprosyn] 500 mg PO BID PRN #20 tab 05/21/21 [Rx Last Taken Unknown] cefdinir 300 mg PO BID #20 cap 08/08/21 [Rx Last Taken Unknown] hydrocodone-acetaminophen 1 tab PO Q6H PRN 3 Days #12 tab 09/13/21 [Rx Last Taken Unknown] ibuprofen 600 mg PO 4X/DAY PRN #20 tab 09/13/21 [Rx Last Taken Unknown] Allergy/AdvReac Type Severity Reaction Status Date / Time cinnamon Allergy Anaphylaxis Verified 09/13/21 15:59 codeine Allergy PT UNSURE Verified 09/13/21 15:59 OF REACTION Surgical History H/O lithotripsy History of colonoscopy History of esophagogastroduodenoscopy (EGD) History of total adrenalectomy Hx of tonsillectomy Social History Smoking Status: Former smoker substance use type: does not use ROS ROS ED Constitutional Constitutional ED: Denies chills, fever(s) or sweats Eyes Eyes: Denies change in vision ENT ENT ED: Denies dysphagia or sore throat Cardiovascular Cardiovascular: Denies chest pain, leg edema, palpitations or racing heartbeat Respiratory/Chest Respiratory/Chest: Denies cough, dyspnea or dyspnea on exertion Gastrointestinal Gastrointestinal: Denies abdominal pain, diarrhea, nausea or vomiting Genitourinary Genitourinary ED: Denies dysuria, hematuria or urinary frequency Musculoskeletal Musculoskeletal: Denies back pain, extremity pain or neck pain Integumentary Denies rash or wounds Neurologic Neurologic: Denies headache(s), paresthesias or weakness EXAM Physical Exam Const Vital Signs: 09/13/21 15:59 09/13/21 17:46 Temperature 97.9 F 98.4 F Temperature Source Temporal Pulse Rate 78 90 Respiratory Rate 15 16 Blood Pressure 137/91 H 136/78 H Blood Pressure Mean 106 Pulse Ox 97 97 Oxygen Delivery Method Room Air Positive well nourished, well developed and obese General Appearance ED: well developed and NAD Nutritional Appearance: obese HEENT Reports moist mucous membranes normocephalic and atraumatic Eyes PERRL, EOMs intact bilaterally and conjunctivae normal General Eye ED: Yes normal appearance of both eyes Neck no lymphadenopathy and supple General: Negative for tenderness Chest Wall Chest: Negative for tenderness Resp normal respiratory effort and normal air movement Effort and Inspection: symmetric chest movement; Negative for respiratory distress Cardio regular rate, regular rhythm and no murmurs Peripheral Pulses: pulses 2+ throughout GI normal to inspection, nondistended, normoactive bowel sounds and non-tender Palpation: Negative for guarding or rebound tenderness present Back/Spine no CVA tenderness Back/Spine Narrative: Midline lumbar tenderness L2-L3 no step-offs. Straight leg test negative bilaterally. 2+ patellar reflex bilaterally. Cervical Spine: Negative for cervical spine tenderness and other Lumbar Spine / Lower Back: Negative for straight leg raise negative bilaterally Extremity normal to inspection General Extremety ED: Negative for edema or tenderness General Extremity: Negative for edema Neuro oriented x3 and no sensory deficits noted Sensorium / Orientation: awake and alert Skin no rashes or lesions noted and no wounds MDM MDM MDM Narrative Medical decision making narrative: Patient no cauda equina symptoms. Presents with sciatica symptoms. Reports history of microfractures. CT scan lumbar spine obtained noting mild degenerative changes. There was no extra vertebral noted per his history. He was treated with Motrin and hydrocodone. He had a ride. [facility] report was negative. He is given follow-up with pain management for potential intervention treatment. Prescription for Motrin and hydrocodone written for symptom control. Follow-up given. All questions were answered. Radiography Diagnostic Testing: Clinical Impression(s) from Imaging Studies Lumbar Spine CT 09/13/21 16:17 IMPRESSION: Degenerative changes and discogenic disease as noted of the lumbar spine. Correlation with MRI is recommended. Electronically Signed: Rao Belcher DO at 17:02 [facility] Reading Location ID and State: [facility] / [place] Tel [phone], Service support , Discharge Plan Triage Chief Complaint: Back ED Provider: Young Phan Dx/Rx/DC Orders Clinical Impression: Back pain with sciatica Instructions: ED Sciatica Prescriptions: New hydrocodone-acetaminophen 5-325 mg tablet 1 tab PO Q6H PRN (Reason: pain) 3 Days Qty: 12 RF: 0 ibuprofen 600 MG tablet 600 mg PO 4X/DAY PRN (Reason: Pain Or Fever) Qty: 20 RF: 0 No Action oxcarbazepine 300 MG tablet 300 mg PO DAILY RF: 0 oxcarbazepine 300 MG tablet 900 mg PO QHS RF: 0 gabapentin 300 MG capsule 300 mg PO QHS RF: 0 fluoxetine 20 MG capsule 40 mg PO QHS RF: 0 gabapentin 300 MG capsule 300 mg PO BID PRN (Reason: mood) RF: 0 Quetiapine Fumarate [Seroquel Xr] 400 MG Tab.Sr.24h 400 mg PO QHS RF: 0 ondansetron 4 MG tablet 4 mg PO Q8H PRN PRN (Reason: Nausea) Qty: 10 RF: 0 ibuprofen [IBU] 600 mg tablet 600 mg PO Q8H PRN (Reason: Pain) RF: 0 pantoprazole 40 MG tablet,delayed release (DR/EC) 40 mg PO DAILY RF: 0 atorvastatin 40 mg Tablet 40 mg PO QHS Qty: 30 RF: 1 diphenhydramine HCl [Benadryl] 25 mg Capsule 25 mg PO QHS PRN (Reason: Sleep) Qty: 0 RF: 0 lisinopril 2.5 MG tablet 5 mg PO DAILY Qty: 0 RF: 0 metoprolol tartrate 25 MG tablet 12.5 mg PO BID Qty: 0 RF: 0 aspirin 81 mg Tablet,Chewable 81 mg PO DAILY Qty: 30 RF: 2 naproxen [Naprosyn] 500 mg tablet 500 mg PO BID PRN (Reason: pain) Qty: 20 RF: 0 cyclobenzaprine 10 mg tablet 10 mg PO BID PRN (Reason: muscle spasm) Qty: 10 RF: 0 hydrocodone-acetaminophen 5-325 mg tablet 1 tab PO Q6H PRN (Reason: pain) 3 Days Qty: 10 RF: 0 lidocaine [Lidoderm] 5 % adhesive patch,medicated 1 patch topical DAILY Qty: 6 RF: 0 cefdinir 300 mg capsule 300 mg PO BID Qty: 20 RF: 0 Referrals: Barbara Monroe [Other] Janet Hutchinson MD [STAFF PHYSICIAN] - 5-7 Days Activity Restrictions/Additional Instructions: CT lumbar spine with mild degenerative changes of your lower lumbar spine. Take medications as prescribed. Follow-up as an outpatient. Disposition Disposition: Home, Self Care Discharge Date/Time: 09/13/21 17:47
[2021-09-13] MEDS: HYDROcodone Bitartrate/Apap 5/325 Tablet PO (16:29)
[2021-09-13] MEDS: Ibuprofen 600 MG Tablet PO (16:29)
[2021-09-13 17:46] VITALS: BP 136/78; PULSE 90; RESP 16; TEMP 36.9; O2SAT 97
== END 2021-09-13 17:47 | disposition home or self-care (01) ==
PROVIDERS: Emergency Provider Emergency Medicine; Visit Provider Emergency Medicine
DX: M54.41 Lumbago with sciatica, right side (principal); F31.9 Bipolar disorder, unspecified; Z68.41 Body mass index [BMI] 40.0-44.9, adult; M54.42 Lumbago with sciatica, left side; I10 Essential (primary) hypertension; Z87.891 Personal history of nicotine dependence; G89.29 Other chronic pain; F90.9 Attention-deficit hyperactivity disorder, unspecified type; K21.9 Gastro-esophageal reflux disease without esophagitis; Z87.442 Personal history of urinary calculi; G47.33 Obstructive sleep apnea (adult) (pediatric); Z86.718 Personal history of other venous thrombosis and embolism; Z87.19 Personal history of other diseases of the digestive system; Z79.899 Other long term (current) drug therapy; G43.909 Migraine, unspecified, not intractable, without status migrainosus; Z79.82 Long term (current) use of aspirin; E66.9 Obesity, unspecified
CPT/HCPCS: 72131; 99283

== ENCOUNTER 2021-11-16 20:04 | Emergency (ER) | payer MEDICAID, SELFPAY ==
[2021-11-16 20:05] VITALS: BP 152/99; PULSE 70; RESP 16; TEMP 36.6; O2SAT 95; BMI 42.0
[2021-11-16 20:07] VITALS: BP 152/99; PULSE 70; RESP 16; TEMP 36.6; O2SAT 95
--- NOTE | 2021-11-16 21:23 | CT_ITS ---
EXAM: CT ABDOMEN AND PELVIS WITH INTRAVENOUS CONTRAST CLINICAL INDICATION: abdominal pain TECHNIQUE: Helically acquired images were obtained of the abdomen and pelvis with intravenous contrast. This CT exam was performed using one or more of the following dose reduction techniques: automated exposure control, adjustment of the mA and/or kV according to patient size, and/or use of iterative reconstruction technique. This report was created using [employer] report generation technology. CONTRAST: IV 100mL Isovue-300 COMPARISON: 10/10/2020. FINDINGS: LOWER THORAX: Small hiatal hernia. Lung bases are clear. No cardiomegaly. No significant pericardial effusion. ABDOMEN: LIVER: Unremarkable. Homogeneous. No focal mass. GALLBLADDER AND BILE DUCTS: Unremarkable. No calcified gallstones. No gallbladder distention or wall edema. No intra- or extrahepatic biliary ductal dilation. PANCREAS: Unremarkable. No focal cystic or solid mass. SPLEEN: Unremarkable. Normal size without focal cystic or solid mass. ADRENALS: Unremarkable. No nodules. KIDNEYS AND URETERS: Unremarkable. Normal renal size and position. No hydronephrosis. STOMACH AND BOWEL: Unremarkable. No stomach or bowel distention. No focal inflammatory change. PELVIS: APPENDIX: No evidence of acute appendicitis. Normal visualized appendix. BLADDER: Unremarkable. REPRODUCTIVE: Unremarkable as visualized. No mass. ABDOMEN and PELVIS: INTRAPERITONEAL SPACE: Unremarkable. No ascites or other fluid collection. No free air. BONES/JOINTS: Unremarkable. No suspicious lytic or blastic abnormality. SOFT TISSUES: Unremarkable. No discrete abdominal or pelvic wall hernia. VASCULATURE: Unremarkable. Abdominal aorta is normal in caliber. LYMPH NODES: Unremarkable. No enlarged lymph nodes. CT/Abdomen/Pelvis W IV Cont ONLY IMPRESSION: No acute findings in the abdomen or pelvis. Hiatal hernia. Electronically Signed: Isabel Verdugo MD at 23:18 EDT Reading Location ID and State: [id number] / Tel , Service support ,
--- NOTE | 2021-11-16 21:24 | EDS_ITS ---
HPI History of Present Illness Chief Complaint: Abd Pain Informant: patient Narrative Narrative: 86-year-old male presenting to the emergency department chief complaint of right-sided abdominal pain. Symptoms began earlier today at work. Described as sharp and stabbing and constant. He reports that it is nauseating. He notes he has had a prior kidney stone and this feels different. He still has gallbladder and appendix. He last ate chicken nuggets and drink fluids at around 1715 hrs. [facility] Medical History ADHD Adrenal benign tumor Anemia Benign essential HTN Bipolar disorder Chronic pain Degenerative disc disease GERD (gastroesophageal reflux disease) Hiatal hernia History of DVT (deep vein thrombosis) Hypertension Kidney stones Migraines Obstructive sleep apnea Smoker Substance abuse Home Medications Quetiapine Fumarate [Seroquel Xr] 400 mg PO QHS 04/08/20 [History Last Taken 11/24/20] fluoxetine 40 mg PO QHS 04/08/20 [History Last Taken 11/24/20] gabapentin 300 mg PO BID PRN 04/08/20 [History Last Taken Unknown] gabapentin 300 mg PO QHS 04/08/20 [History Last Taken 11/24/20] oxcarbazepine 300 mg PO DAILY 04/08/20 [History Last Taken 11/24/20] oxcarbazepine 900 mg PO QHS 04/08/20 [History Last Taken 11/24/20] ondansetron 4 mg PO Q8H PRN PRN #10 tablet 10/12/20 [Rx Last Taken Unknown] ibuprofen [IBU] 600 mg PO Q8H PRN 11/25/20 [History Last Taken 11/25/20 04:40] pantoprazole 40 mg PO DAILY 11/25/20 [History Last Taken 11/25/20] aspirin 81 mg PO DAILY #30 tab 11/28/20 [Rx Last Taken Unknown] atorvastatin 40 mg PO QHS #30 tab 11/28/20 [Rx Last Taken Unknown] diphenhydramine HCl [Benadryl] 25 mg PO QHS PRN #0 cap 11/28/20 [Rx Last Taken 11/24/20] lisinopril 5 mg PO DAILY #0 tab 11/28/20 [Rx Last Taken 11/25/20] metoprolol tartrate 12.5 mg PO BID #0 tab 11/28/20 [Rx Last Taken 11/25/20] cyclobenzaprine 10 mg PO BID PRN #10 tab 05/21/21 [Rx Last Taken Unknown] hydrocodone-acetaminophen 1 tab PO Q6H PRN 3 Days #10 tab 05/21/21 [Rx Last Taken Unknown] lidocaine [Lidoderm] 1 patch TOPICAL DAILY #6 ea 05/21/21 [Rx Last Taken Unknown] naproxen [Naprosyn] 500 mg PO BID PRN #20 tab 05/21/21 [Rx Last Taken Unknown] cefdinir 300 mg PO BID #20 cap 08/08/21 [Rx Last Taken Unknown] hydrocodone-acetaminophen 1 tab PO Q6H PRN 3 Days #12 tab 09/13/21 [Rx Last Taken Unknown] ibuprofen 600 mg PO 4X/DAY PRN #20 tab 09/13/21 [Rx Last Taken Unknown] Allergy/AdvReac Type Severity Reaction Status Date / Time cinnamon Allergy Anaphylaxis Verified 11/16/21 20:07 codeine Allergy PT UNSURE Verified 11/16/21 20:07 OF REACTION Surgical History H/O lithotripsy History of colonoscopy History of esophagogastroduodenoscopy (EGD) History of total adrenalectomy Hx of tonsillectomy Social History Smoking Status: Former smoker substance use type: does not use ROS ROS ED Constitutional Constitutional ED: Denies chills, fever(s) or weight loss Eyes Eyes: Denies change in vision or diplopia ENT ENT ED: Denies ear pain, rhinorrhea or sore throat Cardiovascular Cardiovascular: Denies chest pain, orthopnea, palpitations or racing heartbeat Respiratory/Chest Respiratory/Chest: Denies cough, dyspnea or orthopnea Gastrointestinal Gastrointestinal: Reports abdominal pain and nausea; Denies diarrhea or vomiting Genitourinary Genitourinary ED: Denies dysuria, hematuria or urinary frequency Musculoskeletal Musculoskeletal: Denies arthralgias or myalgias Integumentary Denies abscess or rash Neurologic Neurologic: Denies headache(s) or weakness Psychiatric Psychiatric: Denies anxiety, depression, suicidal ideation or suicidal thoughts Endocrine Endocrinology: Denies polydipsia, polyphagia or polyuria Allergic/Immunologic Allergic/Immunologic ED: Denies mouth swelling, tongue swelling or urticaria EXAM Physical Exam Const Vital Signs: 11/16/21 20:05 11/16/21 20:07 Temperature 97.8 F 97.8 F Temperature Source Temporal Temporal Pulse Rate 70 70 Respiratory Rate 16 16 Blood Pressure 152/99 H 152/99 H Blood Pressure Mean 116 116 Pulse Ox 95 95 Oxygen Delivery Method Room Air Room Air Positive well nourished, well developed and obese General Appearance ED: well developed Nutritional Appearance: obese HEENT Reports normocephalic, head/scalp atraumatic, TM's clear and moist mucous membranes Negative for trauma Tympanic Membrane ED: Yes TM's clear Eyes PERRL and EOMs intact bilaterally Neck no lymphadenopathy, supple and no JVD Resp normal respiratory effort and clear to auscultation bilaterally Cardio regular rate, regular rhythm and no murmurs GI Palpation: soft, tender RLQ and RUQ and guarding Back/Spine no CVA tenderness and normal ROM Extremity normal to inspection General Extremety ED: Negative for edema General Extremity: Negative for edema Neuro oriented x3 and CN's II-XII intact bilaterally Sensorium / Orientation: alert Motor Exam: strength 5/5 throughout Psych mental status grossly normal Mood & Affect: Negative for depressed or tearful Skin no rashes or lesions noted and no wounds Discharge Plan Triage Chief Complaint: Abd Pain ED Provider: Fernandez Ram Dx/Rx/DC Orders Prescriptions: No Action oxcarbazepine 300 MG tablet 300 mg PO DAILY RF: 0 oxcarbazepine 300 MG tablet 900 mg PO QHS RF: 0 gabapentin 300 MG capsule 300 mg PO QHS RF: 0 fluoxetine 20 MG capsule 40 mg PO QHS RF: 0 gabapentin 300 MG capsule 300 mg PO BID PRN (Reason: mood) RF: 0 Quetiapine Fumarate [Seroquel Xr] 400 MG Tab.Sr.24h 400 mg PO QHS RF: 0 ondansetron 4 MG tablet 4 mg PO Q8H PRN PRN (Reason: Nausea) Qty: 10 RF: 0 ibuprofen [IBU] 600 mg tablet 600 mg PO Q8H PRN (Reason: Pain) RF: 0 pantoprazole 40 MG tablet,delayed release (DR/EC) 40 mg PO DAILY RF: 0 atorvastatin 40 mg Tablet 40 mg PO QHS Qty: 30 RF: 1 diphenhydramine HCl [Benadryl] 25 mg Capsule 25 mg PO QHS PRN (Reason: Sleep) Qty: 0 RF: 0 lisinopril 2.5 MG tablet 5 mg PO DAILY Qty: 0 RF: 0 metoprolol tartrate 25 MG tablet 12.5 mg PO BID Qty: 0 RF: 0 aspirin 81 mg Tablet,Chewable 81 mg PO DAILY Qty: 30 RF: 2 naproxen [Naprosyn] 500 mg tablet 500 mg PO BID PRN (Reason: pain) Qty: 20 RF: 0 cyclobenzaprine 10 mg tablet 10 mg PO BID PRN (Reason: muscle spasm) Qty: 10 RF: 0 hydrocodone-acetaminophen 5-325 mg tablet 1 tab PO Q6H PRN (Reason: pain) 3 Days Qty: 10 RF: 0 lidocaine [Lidoderm] 5 % adhesive patch,medicated 1 patch topical DAILY Qty: 6 RF: 0 cefdinir 300 mg capsule 300 mg PO BID Qty: 20 RF: 0 hydrocodone-acetaminophen 5-325 mg tablet 1 tab PO Q6H PRN (Reason: pain) 3 Days Qty: 12 RF: 0 ibuprofen 600 MG tablet 600 mg PO 4X/DAY PRN (Reason: Pain Or Fever) Qty: 20 RF: 0
[2021-11-16] MEDS: 0.9% Normal Saline 1,000 ML 1000 ML IV (21:33)
[2021-11-16] MEDS: HYDROmorphone 1 MG/ML Syringe IV (21:33)
[2021-11-16] MEDS: Ondansetron 4 MG/2 ML Vial IV (21:33)
[2021-11-16 21:41] LABS: Bacteria 0 SEEN /hpf (None Seen); Mucous, Urine 0 SEEN /hpf (<or=2+); Red Blood Cells-Urine 0 SEEN /hpf (0-5); Squamous Epithelial Cells - UA 0 SEEN /hpf (0-5); White Blood Cells 0 SEEN /hpf (0-5)
[2021-11-16 21:43] LABS: Absolute Lymphocyte Count 2.78 X10^3/uL (0.83-4.51); Absolute Neutrophil Count 4.4 X10^3/uL (2.0-7.7); Basophil# 0.06 X10^3/uL; Basophil% 0.7 % (0-1); Eosinophil# 0.08 X10^3/uL; Hematocrit 36.2 % (40-54); Hemoglobin 10.4 g/dL (13.0-16.5); Lymphocyte # 2.78 X10^3/ul (0.83-4.51); Lymphocyte % 34.5 % (19-41); Mean Corp Hgb Conc 28.7 g/dL (32-36); Mean Platelet Vol. 10.9 fl (6.2-12.0); Monocyte# 0.74 X10^3/uL; Monocyte% 9.2 % (0-10); NRBC Flagged by Analyzer 0 % (0-5); Neutrophil # 4.37 X10^3/uL (2.7-7.7); Neutrophil % 54.2 % (47-70); Platelet Count 307 K/mm3 (150-450); RBC Distribution Width CV 15.9 % (11.6-14.6); RBC Distribution Width SD 40.9 fl (35.1-43.9); Red Blood Count 4.96 M/mm3 (4.6-6.2); White Blood Count 8.1 K/mm3 (4.4-11.0)
[2021-11-16 21:44] LABS: Color, Urine Yellow (Yellow); Glucose, Dipstick Normal (Normal); Ketone-Dipstick Negative (Negative); Leukocyte Esterase-Dipstick Negative /ul (Negative); Nitrite-Dipstick Negative (Negative); Occult Blood-Urine Negative /ul (Negative); Protein-Dipstick 15 mg/dl (Negative); Specific Gravity, Urine 1.015 (1.002-1.030); Urine Bilirubin Dipstick Negative (Negative); Urine Clarity Clear (Clear); Urine Urobilinogen Normal (Normal)
[2021-11-16 22:03] LABS: ALB/GLOB Ratio 0.9 RATIO (0.9-2.4); AST(SGOT) 47 U/L (15-37); Alanine Aminotransfer ALT/SGPT 90 U/L (16-61); Alkaline Phosphatase 86 U/L (45-117); Anion Gap 5 (5-15); BUN 17 mg/dL (7-18); BUN/Creat Ratio 14.4 RATIO (10-20); Calcium,Total 9.5 mg/dL (8.5-10.1); Chloride 109 mmol/L (98-107); Creatinine, Serum 1.18 mg/dL (0.70-1.30); EST Glomerular Filtration Rate 74 mL/min (>60); Est Glom Filt Rate - Afr Amer 89 mL/min (>60); Estimated Creatinine Clearance 91.29 ml/min; Globulin 4.6 g/dL (2.2-4.2); Glucose 88 mg/dL (74-106); Lipase 246 U/L (73-393); Potassium 4.2 mmol/L (3.5-5.1); Protein, Total 8.6 g/dL (6.4-8.2); Sodium Level 141 mmol/L (136-145)
[2021-11-16 22:40] VITALS: BP 143/84; PULSE 65; RESP 16; O2SAT 98
[2021-11-17] MEDS: HYDROmorphone 1 MG/ML Syringe IV (00:02)
[2021-11-17 00:11] VITALS: BP 146/72; PULSE 90; RESP 15; O2SAT 99
== END 2021-11-17 00:12 | disposition home or self-care (01) ==
PROVIDERS: Emergency Provider Emergency Medicine; Visit Provider Emergency Medicine
DX: R10.9 Unspecified abdominal pain (principal); F31.9 Bipolar disorder, unspecified; Z68.41 Body mass index [BMI] 40.0-44.9, adult; Z87.891 Personal history of nicotine dependence; I10 Essential (primary) hypertension; F90.9 Attention-deficit hyperactivity disorder, unspecified type; D35.00 Benign neoplasm of unspecified adrenal gland; G89.29 Other chronic pain; K21.9 Gastro-esophageal reflux disease without esophagitis; Z86.718 Personal history of other venous thrombosis and embolism; Z87.442 Personal history of urinary calculi; G47.33 Obstructive sleep apnea (adult) (pediatric); G43.909 Migraine, unspecified, not intractable, without status migrainosus; Z79.82 Long term (current) use of aspirin; Z79.899 Other long term (current) drug therapy; E66.9 Obesity, unspecified; R11.0 Nausea
CPT/HCPCS: 74177; 80053; 81001; 83690; 85025; 96361; 96374; 96375; 96376; 99283; J7030; Q9967; A4216; J2405

== ENCOUNTER 2021-11-18 15:11 | Emergency (ER) | payer MEDICAID, SELFPAY ==
[2021-11-18 15:12] VITALS: BP 166/84; PULSE 69; RESP 15; TEMP 35.9; O2SAT 99; BMI 41.8
[2021-11-18 15:14] VITALS: BP 166/84; PULSE 69; RESP 15; TEMP 35.9; O2SAT 99
--- NOTE | 2021-11-18 15:33 | CT_ITS ---
STUDY: CT ABDOMEN AND PELVIS WITH CONTRAST ENHANCEMENT OF 1555 HOURS ON 11/18/2021 REASON FOR EXAM: 36-year-old male with right lower quadrant abdominal pain. RADIATION DOSAGE (If Supplied By Facility): CTDIvol = ( 15.41 ) mGy, DLP = ( 1459.22 ) mGycm TECHNIQUE: Transaxial images were obtained from the dome of the diaphragm to the symphysis pubis without oral contrast. IV 100mL Isovue-300 was administered. Sagittal and coronal images were reconstructed. Individualized dose optimization techniques were used for this CT. COMPARISON: None. FINDINGS: Presence of a 9.3 cm x 3.5 cm hiatal hernia. The visualized lung bases are unremarkable. The visualized portions of the heart are within normal limits. Normal liver. Normal gallbladder and extrahepatic biliary system. Minimal amount of gravel in the gallbladder. Normal spleen. Normal pancreas; no pancreatitis or pancreatic mass lesions.. Normal bilateral adrenal glands. Normal kidneys without obstructive uropathy. Normal visualized stomach. Normal small intestine. No diverticulitis, colitis, or intestinal obstruction. There is a normal-appearing appendix without appendicitis. This is best visualized in coronal images 71 through 73 and axial images 92 through 98. There are no abnormal lymph nodes in the right lower abdominal quadrant. Normal abdominal aorta. Normal inferior vena cava. Normal retroperitoneum. Normal urinary bladder. Small bilateral fat-containing inguinal hernias. Normal abdominal wall. Normal osseous structures. CT/Abdomen/Pelvis W IV Cont ONLY IMPRESSION: 1. No appendicitis. No abscesses or fluid collections in the right lower abdominal quadrant. 2. No lymphadenopathy or right lower abdominal quadrant. 3. No obstructive uropathy. Normal bladder. 4. No diverticulitis, colitis, or intestinal obstruction. 5. Demonstration of a small amount of gravel in the gallbladder without other larger gallstones or wall thickening. 6. No pancreatitis or pancreatic mass lesions. 7. Small hiatal hernia. 8. Small bilateral fat-containing inguinal hernias. Electronically Signed: Cedric Gleason MD at 17:38 EDT ,
--- NOTE | 2021-11-18 15:34 | ED.VIS.GI ---
HPI HPI - GI History of Present Illness Chief Complaint: Abd Pain Narrative Narrative: 36-year-old male presenting with right-sided abdominal pain. He states in the right lower and right upper quadrant. He has had this since . He was seen in the ER at that time and had normal blood work and a CAT scan of the abdomen pelvis which showed no acute findings. He was given hydrocodone for home and states his pain is still present in the same areas. He states that he was constipated but had a large hard bowel movement this morning and then states he had diarrhea. He has been able to eat small amounts of food. He has not had a fever, chills. No urinary complaints. [facility] Medical History ADHD Adrenal benign tumor Anemia Benign essential HTN Bipolar disorder Chronic pain Degenerative disc disease GERD (gastroesophageal reflux disease) Hiatal hernia History of DVT (deep vein thrombosis) Hypertension Kidney stones Migraines Obstructive sleep apnea Smoker Substance abuse Home Medications Quetiapine Fumarate [Seroquel Xr] 400 mg PO QHS 04/08/20 [History Last Taken 11/24/20] fluoxetine 40 mg PO QHS 04/08/20 [History Last Taken 11/24/20] gabapentin 300 mg PO BID PRN 04/08/20 [History Last Taken Unknown] gabapentin 300 mg PO QHS 04/08/20 [History Last Taken 11/24/20] oxcarbazepine 300 mg PO DAILY 04/08/20 [History Last Taken 11/24/20] oxcarbazepine 900 mg PO QHS 04/08/20 [History Last Taken 11/24/20] ondansetron 4 mg PO Q8H PRN PRN #10 tablet 10/12/20 [Rx Last Taken Unknown] ibuprofen [IBU] 600 mg PO Q8H PRN 11/25/20 [History Last Taken 11/25/20 04:40] pantoprazole 40 mg PO DAILY 11/25/20 [History Last Taken 11/25/20] aspirin 81 mg PO DAILY #30 tab 11/28/20 [Rx Last Taken Unknown] atorvastatin 40 mg PO QHS #30 tab 11/28/20 [Rx Last Taken Unknown] diphenhydramine HCl [Benadryl] 25 mg PO QHS PRN #0 cap 11/28/20 [Rx Last Taken 11/24/20] lisinopril 5 mg PO DAILY #0 tab 11/28/20 [Rx Last Taken 11/25/20] metoprolol tartrate 12.5 mg PO BID #0 tab 11/28/20 [Rx Last Taken 11/25/20] cyclobenzaprine 10 mg PO BID PRN #10 tab 05/21/21 [Rx Last Taken Unknown] hydrocodone-acetaminophen 1 tab PO Q6H PRN 3 Days #10 tab 05/21/21 [Rx Last Taken Unknown] lidocaine [Lidoderm] 1 patch TOPICAL DAILY #6 ea 05/21/21 [Rx Last Taken Unknown] naproxen [Naprosyn] 500 mg PO BID PRN #20 tab 05/21/21 [Rx Last Taken Unknown] cefdinir 300 mg PO BID #20 cap 08/08/21 [Rx Last Taken Unknown] hydrocodone-acetaminophen 1 tab PO Q6H PRN 3 Days #12 tab 09/13/21 [Rx Last Taken Unknown] ibuprofen 600 mg PO 4X/DAY PRN #20 tab 09/13/21 [Rx Last Taken Unknown] hydrocodone-acetaminophen 1 tab PO Q6H PRN PRN 3 Days #12 tablet 11/16/21 [Rx Last Taken Unknown] ondansetron 4 mg PO Q6H PRN PRN #15 tab 11/16/21 [Rx Last Taken Unknown] Allergy/AdvReac Type Severity Reaction Status Date / Time cinnamon Allergy Anaphylaxis Verified 11/18/21 15:14 codeine Allergy PT UNSURE Verified 11/18/21 15:14 OF REACTION Surgical History H/O lithotripsy History of colonoscopy History of esophagogastroduodenoscopy (EGD) History of total adrenalectomy Hx of tonsillectomy Social History Smoking Status: Former smoker substance use type: does not use ROS ROS ED Constitutional Constitutional ED: Denies chills or fever(s) ENT ENT ED: Denies rhinorrhea or sore throat Cardiovascular Cardiovascular: Denies chest pain or palpitations Respiratory/Chest Respiratory/Chest: Denies cough or dyspnea Gastrointestinal Gastrointestinal: Reports abdominal pain, constipation, diarrhea and nausea Genitourinary Genitourinary ED: Denies dysuria or hematuria Musculoskeletal Musculoskeletal: Denies arthralgias or myalgias Integumentary Denies rash Neurologic Neurologic: Denies headache(s) or paresthesias Psychiatric Psychiatric: Denies anxiety or depression EXAM Physical Exam Const Vital Signs: 11/18/21 15:12 11/18/21 15:14 Temperature 96.7 F L 96.7 F L Temperature Source Temporal Temporal Pulse Rate 69 69 Respiratory Rate 15 15 Blood Pressure 166/84 H 166/84 H Blood Pressure Mean 111 111 Pulse Ox 99 99 Oxygen Delivery Method Room Air Room Air Positive well nourished General Appearance ED: NAD; Negative for pallor HEENT Reports moist mucous membranes normocephalic and atraumatic Eyes PERRL and EOMs intact bilaterally General Eye ED: Negative for pale conjunctiva or scleral icterus Resp normal respiratory effort and clear to auscultation bilaterally Cardio regular rate and regular rhythm GI non-distended GI Narrative: No estrellita McBurney point tenderness. Negative Smalls sign. Palpation: soft and tender RLQ and RUQ Neuro Sensorium / Orientation: alert and oriented to person Psych mental status grossly normal Skin General Skin Exam: Negative for jaundice or pallor Lesions: no lesions Rashes: no rashes MDM MDM MDM Narrative Medical decision making narrative: Patient returns for continued right-sided pain. His abdominal exam is benign. I obtained repeat lab work and his CBC and CMP are unremarkable with exception of a slight elevation of the AST at 44 and ALT at 88. These are lower than his previous visit lipase is negative. CT of the abdomen pelvis is again repeated and shows no acute abdominal process. It is noted that he has a small amount of gravel in the gallbladder without any signs of acute cholecystitis. Patient does not have a Smalls sign. Unclear what the etiology of the patient's pain is but I do believe he is stable to be discharged home. He is counseled to follow-up with his primary care physician to ensure resolution. Impression: 1. Abdominal pain Lab Data Attestation: I reviewed the patient's lab results. Labs: Laboratory Results - last 24 hr 11/18/21 11/18/21 15:35 15:35 WBC 7.0 RBC 4.74 Hgb 9.8 L Hct 33.9 L MCV 71.5 L MCH 20.7 L MCHC 28.9 L RDW Std Deviation 40.3 RDW Coeff of Michael 15.8 H Plt Count 236 MPV 10.0 Immature Gran % (Auto) 0.300 Neut % (Auto) 67.8 Lymph % (Auto) 22.5 [place] % (Auto) 8.3 Eos % (Auto) 0.7 Baso % (Auto) 0.4 Absolute Neuts (auto) 4.8 Absolute Lymphs (auto) 1.58 Nucleated RBC % 0 Sodium 139 Potassium 4.2 Chloride 108 H Carbon Dioxide 25.0 Anion Gap 6 BUN 17 Creatinine 1.22 Estim Creat Clear Calc 88.30 Est GFR (MDRD) Af Amer 86 Est GFR (MDRD) Non-Af 71 BUN/Creatinine Ratio 13.9 Glucose 95 Calcium 9.2 Total Bilirubin 0.20 Direct Bilirubin 0.06 AST 44 H ALT 82 H Alkaline Phosphatase 88 Total Protein 7.9 Albumin 3.7 Globulin 4.2 Lipase 247 Radiography Diagnostic Testing: Clinical Impression(s) from Imaging Studies Abdomen/Pelvis CT 11/18/21 15:33 IMPRESSION: 1. No appendicitis. No abscesses or fluid collections in the right lower abdominal quadrant. 2. No lymphadenopathy or right lower abdominal quadrant. 3. No obstructive uropathy. Normal bladder. 4. No diverticulitis, colitis, or intestinal obstruction. 5. Demonstration of a small amount of gravel in the gallbladder without other larger gallstones or wall thickening. 6. No pancreatitis or pancreatic mass lesions. 7. Small hiatal hernia. 8. Small bilateral fat-containing inguinal hernias. Electronically Signed: Cedric Gleason MD at 17:38 EDT , Discharge Plan Triage Chief Complaint: Abd Pain ED Provider: Geo Robertson Dx/Rx/DC Orders Instructions: ED Abdominal Pain Unkn Cause Male... Prescriptions: No Action oxcarbazepine 300 MG tablet 300 mg PO DAILY RF: 0 oxcarbazepine 300 MG tablet 900 mg PO QHS RF: 0 gabapentin 300 MG capsule 300 mg PO QHS RF: 0 fluoxetine 20 MG capsule 40 mg PO QHS RF: 0 gabapentin 300 MG capsule 300 mg PO BID PRN (Reason: mood) RF: 0 Quetiapine Fumarate [Seroquel Xr] 400 MG Tab.Sr.24h 400 mg PO QHS RF: 0 ondansetron 4 MG tablet 4 mg PO Q8H PRN PRN (Reason: Nausea) Qty: 10 RF: 0 ibuprofen [IBU] 600 mg tablet 600 mg PO Q8H PRN (Reason: Pain) RF: 0 pantoprazole 40 MG tablet,delayed release (DR/EC) 40 mg PO DAILY RF: 0 atorvastatin 40 mg Tablet 40 mg PO QHS Qty: 30 RF: 1 diphenhydramine HCl [Benadryl] 25 mg Capsule 25 mg PO QHS PRN (Reason: Sleep) Qty: 0 RF: 0 lisinopril 2.5 MG tablet 5 mg PO DAILY Qty: 0 RF: 0 metoprolol tartrate 25 MG tablet 12.5 mg PO BID Qty: 0 RF: 0 aspirin 81 mg Tablet,Chewable 81 mg PO DAILY Qty: 30 RF: 2 naproxen [Naprosyn] 500 mg tablet 500 mg PO BID PRN (Reason: pain) Qty: 20 RF: 0 cyclobenzaprine 10 mg tablet 10 mg PO BID PRN (Reason: muscle spasm) Qty: 10 RF: 0 hydrocodone-acetaminophen 5-325 mg tablet 1 tab PO Q6H PRN (Reason: pain) 3 Days Qty: 10 RF: 0 lidocaine [Lidoderm] 5 % adhesive patch,medicated 1 patch topical DAILY Qty: 6 RF: 0 cefdinir 300 mg capsule 300 mg PO BID Qty: 20 RF: 0 hydrocodone-acetaminophen 5-325 mg tablet 1 tab PO Q6H PRN (Reason: pain) 3 Days Qty: 12 RF: 0 ibuprofen 600 MG tablet 600 mg PO 4X/DAY PRN (Reason: Pain Or Fever) Qty: 20 RF: 0 hydrocodone-acetaminophen [hydrocodone-acetaminophen] 1 TABLET tablet 1 tab PO Q6H PRN PRN (Reason: Pain) 3 Days Qty: 12 RF: 0 ondansetron [ondansetron] 4 MG tablet 4 mg PO Q6H PRN PRN (Reason: Nausea) Qty: 15 RF: 0 Referrals: Foster Beers,Barbara [Other] Disposition Disposition: Home, Self Care
[2021-11-18] MEDS: 0.9% Normal Saline 1,000 ML 1000 ML IV (15:44)
[2021-11-18] MEDS: Morphine 4 MG/ML Syringe IV (15:45)
[2021-11-18] MEDS: Ondansetron 4 MG/2 ML Vial IV (15:45)
[2021-11-18 15:47] LABS: Absolute Lymphocyte Count 1.58 X10^3/uL (0.83-4.51); Absolute Neutrophil Count 4.8 X10^3/uL (2.0-7.7); Basophil# 0.03 X10^3/uL; Basophil% 0.4 % (0-1); Eosinophil# 0.05 X10^3/uL; Eosinophils% 0.7 % (0-5); Hematocrit 33.9 % (40-54); Hemoglobin 9.8 g/dL (13.0-16.5); Lymphocyte # 1.58 X10^3/ul (0.83-4.51); Lymphocyte % 22.5 % (19-41); Mean Corp Hgb Conc 28.9 g/dL (32-36); Mean Corpuscular Hgb 20.7 pg (27.0-32.0); Mean Corpuscular Volume 71.5 fL (80-94); Monocyte# 0.58 X10^3/uL; Monocyte% 8.3 % (0-10); NRBC Flagged by Analyzer 0 % (0-5); Neutrophil # 4.76 X10^3/uL (2.7-7.7); Neutrophil % 67.8 % (47-70); Platelet Count 236 K/mm3 (150-450); RBC Distribution Width CV 15.8 % (11.6-14.6); RBC Distribution Width SD 40.3 fl (35.1-43.9); Red Blood Count 4.74 M/mm3 (4.6-6.2)
[2021-11-18 16:02] LABS: AST(SGOT) 44 U/L (15-37); Alanine Aminotransfer ALT/SGPT 82 U/L (16-61); Albumin, Serum 3.7 g/dL (3.2-5.0); Alkaline Phosphatase 88 U/L (45-117); Anion Gap 6 (5-15); BUN 17 mg/dL (7-18); BUN/Creat Ratio 13.9 RATIO (10-20); Bilirubin, Direct 0.06 mg/dL (0.00-0.30); Calcium,Total 9.2 mg/dL (8.5-10.1); Chloride 108 mmol/L (98-107); Creatinine, Serum 1.22 mg/dL (0.70-1.30); EST Glomerular Filtration Rate 71 mL/min (>60); Est Glom Filt Rate - Afr Amer 86 mL/min (>60); Globulin 4.2 g/dL (2.2-4.2); Glucose 95 mg/dL (74-106); Lipase 247 U/L (73-393); Potassium 4.2 mmol/L (3.5-5.1); Protein, Total 7.9 g/dL (6.4-8.2); Sodium Level 139 mmol/L (136-145)
== END 2021-11-18 18:26 | disposition home or self-care (01) ==
PROVIDERS: Emergency Provider Student in an Organized Health Care Education/Training Program; Visit Provider Student in an Organized Health Care Education/Training Program
DX: R10.9 Unspecified abdominal pain (principal); F31.9 Bipolar disorder, unspecified; Z87.891 Personal history of nicotine dependence; I10 Essential (primary) hypertension; Z86.718 Personal history of other venous thrombosis and embolism; F90.9 Attention-deficit hyperactivity disorder, unspecified type; G89.29 Other chronic pain; K21.9 Gastro-esophageal reflux disease without esophagitis; Z87.442 Personal history of urinary calculi; G47.33 Obstructive sleep apnea (adult) (pediatric); G43.909 Migraine, unspecified, not intractable, without status migrainosus; Z79.899 Other long term (current) drug therapy; Z79.82 Long term (current) use of aspirin; R11.0 Nausea; R19.7 Diarrhea, unspecified
CPT/HCPCS: 74177; 80048; 80076; 83690; 85025; 96361; 96374; 96375; 99283; J7030; Q9967; A4216; J2405

== ENCOUNTER 2022-01-25 14:29 | Emergency (ER) | payer MEDICAID, SELFPAY ==
[2022-01-25 14:30] VITALS: BP 137/79; PULSE 69; RESP 14; TEMP 37.2; O2SAT 99; BMI 39.2
[2022-01-25 14:43] VITALS: BP 131/82; PULSE 68; RESP 18; O2SAT 97
--- NOTE | 2022-01-25 14:51 | CT_ITS ---
STUDY: CTA CHEST REASON FOR EXAM: Male, 36 years old. Chest pain. Question pulmonary embolus. RADIATION DOSAGE (If Supplied By Facility): CTDIvol = ( 16.22 ) mGy, DLP = ( 524.71 ) mGycm TECHNIQUE: The examination was performed with the intravenous administration of IV 100mL [id number]-370. Post-processing of the angiographic images was performed, with multiplanar reformation and 3D reconstruction. Individualized dose optimization techniques were used for this CT. COMPARISON: Chest, 08/08/2021. FINDINGS: Normal enhancement of the main pulmonary artery and right and left pulmonary arteries. Normal enhancement of the bilateral peripheral pulmonary arteries. There is no demonstrated pulmonary embolism. Normal thoracic aorta and visualized great vessels. There is no demonstrated aortic dissection. Normal heart and pericardium. No coronary artery calcifications. Normal mediastinum. Normal hilar regions. There is a large retrocardiac hiatal hernia containing the proximal stomach. The esophagus appears normal. Normal visualized trachea and bronchi. The lungs are well expanded. Normal pulmonary parenchyma. Normal pleura. Normal chest wall structures. There are degenerative changes of thoracic spine. Normal visualized upper abdomen. CT/CTA Chest W/WO Contrast IMPRESSION: 1. No evidence of pulmonary embolus. 2. No aortic dissection or aneurysm. 3. Large retrocardiac hiatal hernia. 4. No acute pulmonary disease. Electronically Signed: Giorgio Solo DO at 16:51 EDT Reading Location ID and State: [address] [place] [address] Tel [phone], Service support ,
--- NOTE | 2022-01-25 14:52 | EKG12_ITS ---
Test Reason : chest pain Blood Pressure : / mmHG Vent. Rate : 066 BPM Atrial Rate : 066 BPM P-R Int : 166 ms QRS Dur : 090 ms QT Int : 398 ms P-R-T Axes : 024 010 038 degrees QTc Int : 417 ms Normal sinus rhythm Cannot rule out Inferior infarct , age undetermined Abnormal ECG Confirmed by OSMAN BOWLING, VIC ([id number]), deputy editor in chief JACEY GILL ([id number]) on 01/26/2022 10:36:17 A M Referred By: Mirian Confirmed By:OFELIA BREWER MD
--- NOTE | 2022-01-25 14:53 | VDLE_ITS ---
Reason For Study: Pain Procedure LEFT This is a venous duplex using B-mode, color GSV is normal. flow and spectral Doppler. CFV is compressible, spontaneous, phasic, Exam performed portable in ED. competent, and demonstrates normal A preliminary report was called and/or faxed augmentation. to [facility]. FV is compressible, spontaneous, phasic, competent and demonstrates normal augmentation. POP V is compressible, spontaneous, phasic, competent and demonstrates normal augmentation. T/P Trunk is compressible. PTV is compressible. LT PerV is compressible. VL/Venous Duplex US, Unilateral Interpretation Summary There is no evidence of left lower extremity deep vein thrombosis. Left great s aphenous vein appears patent and compressible segmentally. Ordering Physician: Candy Stout Performed By: Barbara Dorado RVT
[2022-01-25] MEDS: 0.9% Normal Saline 1,000 ML 15 ML IV (15:00)
[2022-01-25] MEDS: Morphine 4 MG/ML Syringe IV (15:01)
[2022-01-25] MEDS: Ondansetron 4 MG/2 ML Vial IV (15:01)
[2022-01-25 15:02] LABS: Absolute Lymphocyte Count 1.72 X10^3/uL (0.83-4.51); Absolute Neutrophil Count 3.2 X10^3/uL (2.0-7.7); Basophil# 0.04 X10^3/uL; Basophil% 0.7 % (0-1); Eosinophil# 0.05 X10^3/uL; Eosinophils% 0.9 % (0-5); Hematocrit 36.3 % (40-54); Hemoglobin 10.8 g/dL (13.0-16.5); Lymphocyte # 1.72 X10^3/ul (0.83-4.51); Lymphocyte % 31.3 % (19-41); Mean Corp Hgb Conc 29.8 g/dL (32-36); Mean Corpuscular Volume 73.9 fL (80-94); Mean Platelet Vol. 10.1 fl (6.2-12.0); Monocyte% 9.1 % (0-10); NRBC Flagged by Analyzer 0 % (0-5); Neutrophil # 3.18 X10^3/uL (2.7-7.7); Neutrophil % 57.8 % (47-70); Platelet Count 274 K/mm3 (150-450); RBC Distribution Width CV 17.7 % (11.6-14.6); Red Blood Count 4.91 M/mm3 (4.6-6.2); White Blood Count 5.5 K/mm3 (4.4-11.0)
[2022-01-25 15:22] LABS: Anion Gap 7 (5-15); BUN 18 mg/dL (7-18); BUN/Creat Ratio 13.1 RATIO (10-20); Calcium,Total 8.7 mg/dL (8.5-10.1); Chloride 110 mmol/L (98-107); Creatinine, Serum 1.37 mg/dL (0.70-1.30); EST Glomerular Filtration Rate 62 mL/min (>60); Est Glom Filt Rate - Afr Amer 75 mL/min (>60); Estimated Creatinine Clearance 78.63 ml/min; Glucose 130 mg/dL (74-106); Potassium 3.9 mmol/L (3.5-5.1); Sodium Level 142 mmol/L (136-145); Troponin-I HS 4 pg/mL (3.0-78.0)
[2022-01-25 15:50] VITALS: BP 141/73; PULSE 61; RESP 16; O2SAT 98
--- NOTE | 2022-01-25 16:54 | ED.VIS.CHEST ---
HPI <QUE Tatum - Last Filed: 01/25/22 17:47> History of Present Illness Chief Complaint: Chest Pain Narrative Narrative: Patient was at work at [employer] and bent over, and felt immediate sharp pain in the middle of his chest. No radiation. No back pain or abdominal pain. He did feel slightly short of breath. No nausea vomiting or diaphoresis. Pain is still present but has improved. He has no cardiac history. 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 He has had some cramping in his left calf intermittently over the last couple days. No recent surgery or travel, cough or hemoptysis, fever or chills. PFSH <QUE Tatum - Last Filed: 01/25/22 17:47> PFS Medical History ADHD Adrenal benign tumor Anemia Benign essential HTN Bipolar disorder Chronic pain Degenerative disc disease GERD (gastroesophageal reflux disease) Hiatal hernia History of DVT (deep vein thrombosis) Hypertension Kidney stones Migraines Obstructive sleep apnea Smoker Substance abuse Home Medications Quetiapine Fumarate [Seroquel Xr] 400 mg PO QHS mood 04/08/20 [History Last Taken 11/24/20] fluoxetine 20 mg capsule 40 mg PO QHS mood 04/08/20 [History Last Taken 11/24/20] gabapentin 300 mg capsule 300 mg PO BID PRN mood 04/08/20 [History Last Taken Unknown] gabapentin 300 mg capsule 300 mg PO QHS mood 04/08/20 [History Last Taken 11/24/20] oxcarbazepine 300 mg tablet 300 mg PO DAILY mood 04/08/20 [History Last Taken 11/24/20] oxcarbazepine 300 mg tablet 900 mg PO QHS mood 04/08/20 [History Last Taken 11/24/20] ondansetron 4 mg disintegrating tablet 4 mg PO Q8H PRN PRN Nausea #10 tabs 10/12/20 [Rx Last Taken Unknown] ibuprofen 600 mg tablet (IBU) 600 mg PO Q8H PRN Pain 11/25/20 [History Last Taken 11/25/20 04:40] pantoprazole 40 mg tablet,delayed release 40 mg PO DAILY gerd 11/25/20 [History Last Taken 11/25/20] aspirin 81 mg chewable tablet 81 mg PO DAILY #30 tabs 11/28/20 [Rx Last Taken Unknown] atorvastatin 40 mg tablet 40 mg PO QHS #30 tabs 11/28/20 [Rx Last Taken Unknown] diphenhydramine HCl 25 mg capsule (Benadryl) 25 mg PO QHS PRN Sleep #0 caps 11/28/20 [Rx Last Taken 11/24/20] lisinopril 2.5 mg tablet 5 mg PO DAILY blood pressure #0 tabs 11/28/20 [Rx Last Taken 11/25/20] metoprolol tartrate 25 mg tablet 12.5 mg PO BID blood pressure #0 tabs 11/28/20 [Rx Last Taken 11/25/20] cyclobenzaprine 10 mg tablet 10 mg PO BID PRN muscle spasm #10 tabs 05/21/21 [Rx Last Taken Unknown] hydrocodone-acetaminophen 5-325mg 5mg-325mg 1 tab PO Q6H PRN pain 3 days #10 tabs 05/21/21 [Rx Last Taken Unknown] lidocaine 5 % topical patch (Lidoderm) 1 patch topical DAILY #6 ea 05/21/21 [Rx Last Taken Unknown] naproxen 500 mg tablet (Naprosyn) 500 mg PO BID PRN pain #20 tabs 05/21/21 [Rx Last Taken Unknown] cefdinir 300 mg capsule 300 mg PO BID #20 caps 08/08/21 [Rx Last Taken Unknown] hydrocodone-acetaminophen 5-325mg 5mg-325mg 1 tab PO Q6H PRN pain 3 days #12 tabs 09/13/21 [Rx Last Taken Unknown] ibuprofen 600 mg tablet 600 mg PO 4X/DAY PRN Pain Or Fever #20 tabs 09/13/21 [Rx Last Taken Unknown] hydrocodone-acetaminophen 5-325mg 5mg-325mg 1 tab PO Q6H PRN PRN Pain 3 days #12 TABLETS 11/16/21 [Rx Last Taken Unknown] ondansetron 4 mg disintegrating tablet 4 mg PO Q6H PRN PRN Nausea #15 tabs 11/16/21 [Rx Last Taken Unknown] Allergy/AdvReac Type Severity Reaction Status Date / Time cinnamon Allergy Anaphylaxis Verified 01/25/22 14:31 codeine Allergy PT UNSURE Verified 01/25/22 14:31 OF REACTION Surgical History H/O lithotripsy History of colonoscopy History of esophagogastroduodenoscopy (EGD) History of total adrenalectomy Hx of tonsillectomy Social History Smoking Status: Former smoker substance use type: does not use ROS <QUE Tatum - Last Filed: 01/25/22 17:47> ROS ED ROS Narrative Constitutional: Negative for fever, chills, malaise. Eyes: Negative for visual change. ENT: Negative for sore throat, ear pain, rhinorrhea. CVS: Positive for chest pain. Negative for palpitations, syncope. Respiratory: Positive for shortness of breath. Negative for cough, orthopnea. GI: Negative for abdominal pain, nausea, vomiting, diarrhea, constipation, melena, hematochezia. : Negative for dysuria, hematuria or frequency. Neuro: Negative for headache, motor/sensory dysfunction. Skin: Negative for rash, abscess, or wound. Musc: Negative for joint pain, swelling, trauma. Heme: Negative for easy bruising, bleeding, lymphadenopathy. EXAM <QUE Tatum - Last Filed: 01/25/22 17:47> Physical Exam Narrative Exam Narrative: CONST: Patient sitting in no acute distress. EYES: Normal inspection. ENT: Normal inspection, moist mucous membranes. NECK: Normal inspection. RESP: No respiratory distress, CTAB. CVS: Regular rate and rhythm, no murmur, no gallop. ABD: Soft and nontender, no guarding or rebound, nondistended. Back: Normal inspection, no CVA tenderness. SKIN: Color normal, no rash, warm, dry, intact. EXTREMITIES: Normal appearance, no pedal edema, no calf tenderness. 2+ radial DP pulses NEURO: Oriented x4. PSYCH: Normal affect. Const Vital Signs: 01/25/22 14:30 01/25/22 14:43 01/25/22 14:45 Temperature 98.9 F Temperature Source Temporal Pulse Rate 69 68 Respiratory Rate 14 18 Respiratory Effort Short of Breath Blood Pressure 137/79 H 131/82 H Blood Pressure Mean 98 98 Pulse Ox 99 97 Oxygen Delivery Method Room Air Room Air 01/25/22 15:50 01/25/22 17:04 Temperature Temperature Source Pulse Rate 61 64 Respiratory Rate 16 20 H Respiratory Effort Blood Pressure 141/73 H 129/65 H Blood Pressure Mean 95 86 Pulse Ox 98 99 Oxygen Delivery Method Room Air Room Air <Dr. Bruce Paige MD - Last Filed: 01/25/22 16:58> Physical Exam Const Vital Signs: 01/25/22 14:30 01/25/22 14:43 01/25/22 14:45 Temperature 98.9 F Temperature Source Temporal Pulse Rate 69 68 Respiratory Rate 14 18 Respiratory Effort Short of Breath Blood Pressure 137/79 H 131/82 H Blood Pressure Mean 98 98 Pulse Ox 99 97 Oxygen Delivery Method Room Air Room Air 01/25/22 15:50 01/25/22 17:04 Temperature Temperature Source Pulse Rate 61 64 Respiratory Rate 16 20 H Respiratory Effort Blood Pressure 141/73 H 129/65 H Blood Pressure Mean 95 86 Pulse Ox 98 99 Oxygen Delivery Method Room Air Room Air <QUE Tatum - Last Filed: 01/25/22 17:47> Heart Score History: Slightly/Non-Suspicious ECG: Significant ST-Depression Age: </= 44 years Risk Factors: >/= 3 Risk Factors or History of CAD Troponin: </= Normal Limit Score: 4 MDM <QUE Tatum - Last Filed: 01/25/22 17:47> MDM MDM Narrative Medical decision making narrative: PA: Patient presents for chest pain that occurred while bending over. Not exertional or pleuritic. He appears uncomfortable and mildly diaphoretic but nontoxic. Vital signs are within normal limits. Heart is regular, lungs clear, abdomen soft and nontender. He had complained of left calf pain but there is no reproducible pain or swelling noted. Distal upper and lower extremity pulses intact. EKG is nonischemic and troponin is 4. Labs show chronic anemia at 10.8, no other significant abnormalities. With his history of DVT and the fact that he is not on anticoagulation a CTA was obtained to rule out PE and dissection. It is negative for both or any acute process. Does note a large hiatal hernia which the patient is aware of. US of the left leg is also negative for DVT. At this time patient is feeling improved and with negative work-up he can be discharged to follow-up with his primary care doctor. I have personally performed a face to face assessment of the patient and have reviewed the TIFFANY Note. I performed a substantive portion of the visit including all aspects of the following. My antonio findings include: History is [36-year-old male no cardiac history. Prior DVT. Onset of chest pain today. No radiation to his neck back or jaw. No recent travel surgery immobilization. No recent exertional chest pain or exertional shortness of breath. No hemoptysis. Pain is not pleuritic. It is midsternal.] Exam is [36 male no acute distress vital signs stable afebrile. Pulse ox 90% on room air no signs hypoxia. H EENT exam unremarkable. Lungs are clear. Heart regular rate and rhythm no murmur. Rate about 60. Chest wall reproducibly tender on his right side of his sternum. No ecchymosis or bruising. No subcu air or crepitance. Abdomen soft nontender. Moving all 4 extremities. Calves are nontender without edema or cords. Equal symmetrical radial pulses. Neurologically is awake alert with no focal motor deficits.] Medical Decision Making [patient's work-up including EKG, chemistries, CBC and troponin was unremarkable. He has a chronic anemia his hemoglobin is 10.8 at his baseline. CTA of his chest as read by the radiologist and reviewed by me shows no acute abnormality. No dissection and no pulmonary emboli. Patient will be discharged home.] Other additions or changes: [None] Lab Data Labs: Laboratory Results - last 24 hr 01/25/22 01/25/22 14:50 14:50 WBC 5.5 RBC 4.91 Hgb 10.8 L Hct 36.3 L MCV 73.9 L MCH 22.0 L MCHC 29.8 L RDW Std Deviation 47.0 H RDW Coeff of Michael 17.7 H Plt Count 274 MPV 10.1 Immature Gran % (Auto) 0.200 Neut % (Auto) 57.8 Lymph % (Auto) 31.3 [place] % (Auto) 9.1 Eos % (Auto) 0.9 Baso % (Auto) 0.7 Absolute Neuts (auto) 3.2 Absolute Lymphs (auto) 1.72 Nucleated RBC % 0 Sodium 142 Potassium 3.9 Chloride 110 H Carbon Dioxide 25.0 Anion Gap 7 BUN 18 Creatinine 1.37 H Estim Creat Clear Calc 78.63 Est GFR (MDRD) Af Amer 75 Est GFR (MDRD) Non-Af 62 BUN/Creatinine Ratio 13.1 Glucose 130 H Calcium 8.7 Troponin I High Sens 4 Radiography Diagnostic Testing: Clinical Impression(s) from Imaging Studies Chest CTA 01/25/22 14:51 IMPRESSION: 1. No evidence of pulmonary embolus. 2. No aortic dissection or aneurysm. 3. Large retrocardiac hiatal hernia. 4. No acute pulmonary disease. Electronically Signed: Giorgio SoloDO at 16:51 EDT Reading Location ID and State: [address] [place] [address] Tel [phone], Service support , EKG Initial EKG: Attestation: I personally reviewed and interpreted this EKG as follows: Interpretation: Sinus Rhythm and No Acute Injury Pattern Comments: Normal intervals, no ischemia <Dr. Bruce Paige MD - Last Filed: 01/25/22 16:58> [facility] MDM Narrative Medical decision making narrative: I have personally performed a face to face assessment of the patient and have reviewed the TIFFANY Note. I performed a substantive portion of the visit including all aspects of the following. My antonio findings include: History is [36-year-old male no cardiac history. Prior DVT. Onset of chest pain today. No radiation to his neck back or jaw. No recent travel surgery immobilization. No recent exertional chest pain or exertional shortness of breath. No hemoptysis. Pain is not pleuritic. It is midsternal.] Exam is [36 male no acute distress vital signs stable afebrile. Pulse ox 90% on room air no signs hypoxia. H EENT exam unremarkable. Lungs are clear. Heart regular rate and rhythm no murmur. Rate about 60. Chest wall reproducibly tender on his right side of his sternum. No ecchymosis or bruising. No subcu air or crepitance. Abdomen soft nontender. Moving all 4 extremities. Calves are nontender without edema or cords. Equal symmetrical radial pulses. Neurologically is awake alert with no focal motor deficits.] Medical Decision Making [patient's work-up including EKG, chemistries, CBC and troponin was unremarkable. He has a chronic anemia his hemoglobin is 10.8 at his baseline. CTA of his chest as read by the radiologist and reviewed by me shows no acute abnormality. No dissection and no pulmonary emboli. Patient will be discharged home.] Other additions or changes: [None] Lab Data Labs: Laboratory Results - last 24 hr 01/25/22 01/25/22 14:50 14:50 WBC 5.5 RBC 4.91 Hgb 10.8 L Hct 36.3 L MCV 73.9 L MCH 22.0 L MCHC 29.8 L RDW Std Deviation 47.0 H RDW Coeff of Michael 17.7 H Plt Count 274 MPV 10.1 Immature Gran % (Auto) 0.200 Neut % (Auto) 57.8 Lymph % (Auto) 31.3 [place] % (Auto) 9.1 Eos % (Auto) 0.9 Baso % (Auto) 0.7 Absolute Neuts (auto) 3.2 Absolute Lymphs (auto) 1.72 Nucleated RBC % 0 Sodium 142 Potassium 3.9 Chloride 110 H Carbon Dioxide 25.0 Anion Gap 7 BUN 18 Creatinine 1.37 H Estim Creat Clear Calc 78.63 Est GFR (MDRD) Af Amer 75 Est GFR (MDRD) Non-Af 62 BUN/Creatinine Ratio 13.1 Glucose 130 H Calcium 8.7 Troponin I High Sens 4 Radiography Diagnostic Testing: Clinical Impression(s) from Imaging Studies Chest CTA 01/25/22 14:51 IMPRESSION: 1. No evidence of pulmonary embolus. 2. No aortic dissection or aneurysm. 3. Large retrocardiac hiatal hernia. 4. No acute pulmonary disease. Electronically Signed: Giorgio Solo DO at 16:51 EDT Reading Location ID and State: [address] [place] [address] Tel [phone], Service support , Discharge Plan Triage Chief Complaint: Chest Pain ED Midlevel Provider: Candy Stout ED Provider: Bruce Paige Dx/Rx/DC Orders Clinical Impression: Chest pain Instructions: ED Chest Pain, Noncardiac Prescriptions: No Action oxcarbazepine 300 MG tablet 300 mg PO DAILY oxcarbazepine 300 MG tablet 900 mg PO QHS gabapentin 300 MG capsule 300 mg PO QHS fluoxetine 20 MG capsule 40 mg PO QHS gabapentin 300 MG capsule 300 mg PO BID PRN (Reason: mood) Quetiapine Fumarate [Seroquel Xr] 400 MG Tab.Sr.24h 400 mg PO QHS ondansetron 4 MG tablet 4 mg PO Q8H PRN PRN (Reason: Nausea) Qty: 10 0RF ibuprofen [IBU] 600 mg tablet 600 mg PO Q8H PRN (Reason: Pain) pantoprazole 40 MG tablet,delayed release (DR/EC) 40 mg PO DAILY atorvastatin 40 mg Tablet 40 mg PO QHS Qty: 30 1RF diphenhydramine HCl [Benadryl] 25 mg Capsule 25 mg PO QHS PRN (Reason: Sleep) Qty: 0 0RF Rx Instructions: Hold for sedation/lethargy lisinopril 2.5 MG tablet 5 mg PO DAILY Qty: 0 0RF Rx Instructions: Hold for systolic blood pressure less than 110 mmHg metoprolol tartrate 25 MG tablet 12.5 mg PO BID Qty: 0 0RF Rx Instructions: Hold for systolic blood pressure less than 90 or heart rate less than 60/min. aspirin 81 mg Tablet,Chewable 81 mg PO DAILY Qty: 30 2RF Rx Instructions: Once daily at 8 AM. naproxen [Naprosyn] 500 mg tablet 500 mg PO BID PRN (Reason: pain) Qty: 20 0RF cyclobenzaprine 10 mg tablet 10 mg PO BID PRN (Reason: muscle spasm) Qty: 10 0RF hydrocodone-acetaminophen 5-325 mg tablet 1 tab PO Q6H PRN (Reason: pain) 3 Days Qty: 10 0RF lidocaine [Lidoderm] 5 % adhesive patch,medicated 1 patch topical DAILY Qty: 6 0RF Rx Instructions: leave on most painful area for up to 12 hrs cefdinir 300 mg capsule 300 mg PO BID Qty: 20 0RF hydrocodone-acetaminophen 5-325 mg tablet 1 tab PO Q6H PRN (Reason: pain) 3 Days Qty: 12 0RF ibuprofen 600 MG tablet 600 mg PO 4X/DAY PRN (Reason: Pain Or Fever) Qty: 20 0RF hydrocodone-acetaminophen [hydrocodone-acetaminophen] 1 TABLET tablet 1 tab PO Q6H PRN PRN (Reason: Pain) 3 Days Qty: 12 0RF ondansetron [ondansetron] 4 MG tablet 4 mg PO Q6H PRN PRN (Reason: Nausea) Qty: 15 0RF Primary Care Provider: Barbara Monroe Referrals: Barbara Monroe [Other] Activity Restrictions/Additional Instructions: Please follow-up with your primary care doctor Disposition Disposition: Home, Self Care Discharge Date/Time: 01/25/22 17:12
[2022-01-25 17:04] VITALS: BP 129/65; PULSE 64; RESP 20; O2SAT 99
== END 2022-01-25 17:12 | disposition home or self-care (01) ==
PROVIDERS: Physician Assistant; Emergency Provider Emergency Medicine; Visit Provider Emergency Medicine
DX: R07.9 Chest pain, unspecified (principal); F31.9 Bipolar disorder, unspecified; K44.9 Diaphragmatic hernia without obstruction or gangrene; D64.9 Anemia, unspecified; R06.02 Shortness of breath; I10 Essential (primary) hypertension; M79.662 Pain in left lower leg; Z87.891 Personal history of nicotine dependence; Z79.899 Other long term (current) drug therapy
CPT/HCPCS: 71275; 80048; 84484; 85025; 93005; 93971; 96361; 96374; 96375; 99283; J7030; Q9967; A4216; J2405

== ENCOUNTER 2022-11-10 19:58 | Emergency (ER) | payer MEDICAID, SELFPAY ==
[2022-11-10 20:00] VITALS: BP 152/100; PULSE 84; RESP 16; TEMP 36.2; O2SAT 100
[2022-11-10 20:07] VITALS: BMI 37.8
--- NOTE | 2022-11-10 20:22 | EDS_ITS ---
HPI <ANDER Johnson - Last Filed: 11/10/22 22:10> History of Present Illness Chief Complaint: Abd Pain Narrative Narrative: Patient is a 37-year-old male with history of obesity, hypertension, TIFFANIE, who presents to the emergency department for severe epigastric pain. Patient had a gastric bypass surgery at [facility] [address] Schroeder. The patient had a gastric bypass surgery as well as some mesh placement. Patient states that around 5 PM which was roughly 3 and half hours ago, the patient started having worsening pain. They did call the surgeon who told him to quit drinking propel, as well as walk around and drink water. Patient states the pain has intensified, and he is not sure what to do Patient states he has 1 feeling of nausea however does not feel nauseous now. Pain states he cannot sit still and is in severe pain. Denies any fever or chills. Patient states he is still passing gas and having bowel movements PFSH <ANDER Johnson - Last Filed: 11/10/22 22:10> PFS Medical History ADHD Adrenal benign tumor Anemia Benign essential HTN Bipolar disorder Chronic pain Degenerative disc disease GERD (gastroesophageal reflux disease) Hiatal hernia History of DVT (deep vein thrombosis) Hypertension Kidney stones Migraines Obstructive sleep apnea Smoker Substance abuse Home Medications gabapentin 300 mg capsule 300 mg PO BID PRN mood 04/08/20 [History Last Taken Unknown] gabapentin 300 mg capsule 300 mg PO QHS mood 04/08/20 [History Last Taken 11/24/20] calcium carb-ergocalciferol (vit D2) 600 mg calcium-200 unit tablet 1 tab PO DAILY 11/10/22 [History Last Taken Unknown] diphenhydramine HCl 25 mg capsule (Benadryl) 25 mg PO QHS PRN Sleep 11/10/22 [History Last Taken Unknown] enoxaparin 40 mg/0.4 mL subcutaneous syringe (Lovenox) 40 mg subcut Q12H 11/10/22 [History Last Taken Unknown] fluoxetine 40 mg capsule 40 mg PO DAILY 11/10/22 [History Last Taken Unknown] oxcarbazepine 600 mg tablet (Trileptal) 600 mg PO BID 11/10/22 [History Last Taken Unknown] quetiapine 400 mg tablet,extended release 24 hr 200 mg PO BID 11/10/22 [History Last Taken Unknown] sucralfate 100 mg/mL oral suspension (Carafate) 10 ml PO .qid #420 mL 11/10/22 [Rx Last Taken Unknown] tramadol 50 mg tablet 50 mg PO Q8 PRN Pain 11/10/22 [History Last Taken Unknown] ursodiol 300 mg capsule 300 mg PO BID 11/10/22 [History Last Taken Unknown] Allergy/AdvReac Type Severity Reaction Status Date / Time cinnamon Allergy Anaphylaxis Verified 11/10/22 20:02 codeine Allergy PT UNSURE Verified 11/10/22 20:02 OF REACTION Surgical History H/O lithotripsy History of colonoscopy History of esophagogastroduodenoscopy (EGD) History of total adrenalectomy Hx of tonsillectomy Social History Smoking Status: Former smoker substance use type: does not use ROS <ANDER Johnson - Last Filed: 11/10/22 22:10> ROS ED ROS Narrative Constitutional: Negative for fever, chills, weight loss, weakness Eyes: Negative for vision loss, vision change, double vision ENT: Negative for any sore throat, ear pain, congestion Cardiovascular: Negative for any chest pain, tightness, palpitations Respiratory: Negative for any cough, sputum production, hemoptysis, dyspnea, dyspnea on exertion, orthopnea Gastrointestinal: Negative for any vomiting, diarrhea, constipation, blood in stool, blood in vomit. Positive for abdominal pain, nausea : Negative for any urinary frequency, dysuria, retention, blood in urine Muscle skeletal: Negative for any muscle joint pain, stiffness, myalgias, arthralgias, neck pain, back pain Neurological: Negative for any headache, syncope, numbness or tingling, dizziness Skin: Negative for any rashes, lumps, itching, abrasions, lacerations Psychiatric: Negative for any depression, anxiety, stress, suicidal ideation, homicidal ideation Hematologic: Negative for any easy bruising, excessive bruising, easy bleeding Allergies: Negative for any eczema, hives, rash EXAM <ANDER Johnson - Last Filed: 11/10/22 22:10> Physical Exam Narrative Exam Narrative: Vital signs reviewed. Upon initial examination, patient does appear to be in mild distress secondary to abdominal pain. Patient is alert and orient x4. HEET: Head normocephalic atraumatic, TMs clear bilaterally. Posterior pharynx is clear, moist mucous membranes. Nares clear bilaterally. Neck: Supple with no lymphadenopathy or tenderness. No signs of meningismus, negative jolt sign. Cardiac: Regular rate and rhythm no murmurs gallops or rubs, equal peripheral pulses bilaterally. Respiratory: Lungs clear to auscultation bilaterally. No chest tenderness. Abdomen: nondistended. No abdominal bruit or pulsatile masses. No hepatosplenomegaly. Patient is shaking was difficult to assess. Patient bili was slightly soft, hypoactive bowel sounds. There were multiple surgical incisions that look in the proper state of healing, they were covered with glue. Extremities: No peripheral edema, no signs of gross trauma or deformity. Active full range of motion of all extremities. Neuro: Cranial nerves II through XII intact, no focal neurological deficits. Skin: Clean dry and intact with no rash, purpura, petechiae, vesicles or pustules. Backs/flank: No CVA tenderness, no midline spinal tenderness, no deformity. Psych: Normal mood and affect. No SI, HI or acute psychosis. Const Vital Signs: 11/10/22 20:00 11/10/22 22:14 Temperature 97.1 F L Temperature Source Temporal Pulse Rate 84 Respiratory Rate 16 18 Blood Pressure 152/100 H Blood Pressure Mean 117 Pulse Ox 100 Oxygen Delivery Method Room Air Room Air <Dr. Otto Montaño MD - Last Filed: 11/10/22 23:32> Physical Exam Const Vital Signs: 11/10/22 20:00 11/10/22 22:14 Temperature 97.1 F L Temperature Source Temporal Pulse Rate 84 Respiratory Rate 16 18 Blood Pressure 152/100 H Blood Pressure Mean 117 Pulse Ox 100 Oxygen Delivery Method Room Air Room Air [facility] <ANDER Johnson - Last Filed: 11/10/22 22:10> [facility] Lab Data Labs: Laboratory Results - last 24 hr 11/10/22 11/10/22 11/10/22 20:20 20:20 20:20 WBC 8.1 RBC 5.34 Hgb 14.7 Hct 43.2 MCV 80.9 MCH 27.5 MCHC 34.0 RDW Std Deviation 36.5 RDW Coeff of Michael 12.6 Plt Count 302 MPV 10.4 Immature Gran % (Auto) 0.200 Neut % (Auto) 53.3 Lymph % (Auto) 32.3 [place] % (Auto) 12.5 H Eos % (Auto) 1.2 Baso % (Auto) 0.5 Absolute Neuts (auto) 4.3 Absolute Lymphs (auto) 2.63 Nucleated RBC % 0 Sodium 134 L Potassium 3.8 Chloride 103 Carbon Dioxide 23.0 Anion Gap 8 BUN 17 Creatinine 0.98 Estim Creat Clear Calc 108.85 Est GFR (MDRD) Af Amer 111 Est GFR (MDRD) Non-Af 91 BUN/Creatinine Ratio 17.4 Glucose 95 Lactic Acid 2.1 H* Calcium 9.6 Total Bilirubin 0.60 AST 43 H ALT 143 H Alkaline Phosphatase 77 Total Protein 7.8 Albumin 3.6 Globulin 4.2 Albumin/Globulin Ratio 0.9 Lipase 53 Radiography Diagnostic Testing: Clinical Impression(s) from Imaging Studies Chest X-Ray 11/10/22 20:35 IMPRESSION: Diminished inspiratory effort. No acute disease Electronically Signed: Keith Daniel MD at 21:37 EDT , Treatment and Re-Evaluation :: All radiologic examinations were read, reviewed by the emergency department attending. From these reads, a plan of care will be put in place. Patient arrives in moderate distress secondary to abdominal pain. Patient diffi culty collecting his thoughts secondary to his abdominal pain. It was difficult to perform a physical examination. Patient was given IV fluids IV pain medicine, IV nausea medicine. Patient's laboratory studies show a normal CBC, chemistries were unremarkable. Patient did have a slight lactic acidosis at 2.1. I did speak with the patient's surgeon Dr. Schroeder. I went over the patient's physical findings as well as laboratory values. I did perform a chest x-ray, this was normal, not showing any free air. The surgeon would like us to reassess after the pain medicine as well as some simethicone. I did reassess the patient after the IV Dilaudid, patient was in a much more calm state. Is able to do a more proficient exam. Patient's belly is soft, patient has minimal tenderness. I believe the tenderness that he is feeling is secondary to post surgery. <Dr. Otto Montaño MD - Last Filed: 11/10/22 23:32> [facility] Lab Data Attestation: I reviewed the patient's lab results. Labs: Laboratory Results - last 24 hr 11/10/22 11/10/22 11/10/22 20:20 20:20 20:20 WBC 8.1 RBC 5.34 Hgb 14.7 Hct 43.2 MCV 80.9 MCH 27.5 MCHC 34.0 RDW Std Deviation 36.5 RDW Coeff of Michael 12.6 Plt Count 302 MPV 10.4 Immature Gran % (Auto) 0.200 Neut % (Auto) 53.3 Lymph % (Auto) 32.3 [place] % (Auto) 12.5 H Eos % (Auto) 1.2 Baso % (Auto) 0.5 Absolute Neuts (auto) 4.3 Absolute Lymphs (auto) 2.63 Nucleated RBC % 0 Sodium 134 L Potassium 3.8 Chloride 103 Carbon Dioxide 23.0 Anion Gap 8 BUN 17 Creatinine 0.98 Estim Creat Clear Calc 108.85 Est GFR (MDRD) Af Amer 111 Est GFR (MDRD) Non-Af 91 BUN/Creatinine Ratio 17.4 Glucose 95 Lactic Acid 2.1 H* Calcium 9.6 Total Bilirubin 0.60 AST 43 H ALT 143 H Alkaline Phosphatase 77 Total Protein 7.8 Albumin 3.6 Globulin 4.2 Albumin/Globulin Ratio 0.9 Lipase 53 Radiography Diagnostic Testing: Clinical Impression(s) from Imaging Studies Chest X-Ray 11/10/22 20:35 IMPRESSION: Diminished inspiratory effort. No acute disease Electronically Signed: Keith Daniel MD at 21:37 EDT , Treatment and Re-Evaluation Comments:: Seen and evaluated independently and in conjunction with nurse practitioner. Agree with notes above unless documented otherwise. Gradual onset not just after a meal, upper abdominal pain today, this is postop day #4. Was only having mild postoperative soreness in the areas of his incisions prior to this. Does not know exactly what surgery he had, it was not a gastric sleeve, probably [id number]. Physician was Dr. Murphy. On exam patient is in painful distress. He is very tender in his epigastrium and left upper quadrant with some voluntary guarding. Awaiting portable chest x-ray to be obtained, and treat the patient's symptoms, and then will discuss with the surgeon at [facility] and arrange transfer and/or CT if they want it. Patient reevaluated after Dilaudid much better, much less tender. Dr. Schroeder requested simethicone, the nurse practitioner gave him a simethicone pillow I also ordered a dose of Mylanta, the patient is further better but still having some mild discomfort after that. Discussed again with Dr. Schroeder, who is okay with [place] home close outpatient follow-up after the weekend, advising increasing the patient's pantoprazole to 40 mg twice daily instead of just once a day, and adding Carafate 4 times daily liquid. Discharge Plan Triage Chief Complaint: Abd Pain ED Midlevel Provider: Baljit Pappas ED Provider: Otto Montaño Dx/Rx/DC Orders Clinical Impression: Acute epigastric pain Instructions: ED Epigastric Pain Uncertain Cause Prescriptions: New sucralfate [Carafate] 100 mg/mL suspension 10 ml PO .qid Qty: 420 0RF No Action gabapentin 300 MG capsule 300 mg PO QHS gabapentin 300 MG capsule 300 mg PO BID PRN (Reason: mood) enoxaparin [Lovenox] 40 mg/0.4 mL Syringe 40 mg SUBCUT Q12H tramadol 50 mg tablet 50 mg PO Q8 PRN (Reason: Pain) oxcarbazepine [Trileptal] 600 mg Tablet 600 mg PO BID quetiapine 400 mg tablet extended release 24 hr 200 mg PO BID Label Comments: TAKE 1 TABLET BY MOUTH AT BEDTIME fluoxetine 40 mg capsule 40 mg PO DAILY ursodiol [Actigall] 300 mg Capsule 300 mg PO BID diphenhydramine HCl [Benadryl] 25 mg Capsule 25 mg PO QHS PRN (Reason: Sleep) Calcium + Vitamin D 600 mg calcium- 200 unit Tablet 1 tab PO DAILY Primary Care Provider: Care Physician,No Primary Referrals: dr. Elda [Other] (call for appt to be seen on Saturday or Saturday) Care Physician,No Primary [Primary Care Provider] - Activity Restrictions/Additional Instructions: Increase your pantoprazole to 1 capsule twice daily instead of just once daily. Continue with the liquids only for meals. Disposition Disposition: Home, Self Care
[2022-11-10 20:29] LABS: Absolute Lymphocyte Count 2.63 X10^3/uL (0.83-4.51); Absolute Neutrophil Count 4.3 X10^3/uL (2.0-7.7); Basophil# 0.04 X10^3/uL; Basophil% 0.5 % (0-1); Eosinophils% 1.2 % (0-5); Hematocrit 43.2 % (40-54); Hemoglobin 14.7 g/dL (13.0-16.5); Lymphocyte # 2.63 X10^3/ul (0.83-4.51); Lymphocyte % 32.3 % (19-41); Mean Corpuscular Hgb 27.5 pg (27.0-32.0); Mean Corpuscular Volume 80.9 fL (80-94); Mean Platelet Vol. 10.4 fl (6.2-12.0); Monocyte# 1.02 X10^3/uL; Monocyte% 12.5 % (0-10); NRBC Flagged by Analyzer 0 % (0-5); Neutrophil # 4.33 X10^3/uL (2.7-7.7); Neutrophil % 53.3 % (47-70); Platelet Count 302 K/mm3 (150-450); RBC Distribution Width CV 12.6 % (11.6-14.6); RBC Distribution Width SD 36.5 fl (35.1-43.9); Red Blood Count 5.34 M/mm3 (4.6-6.2); White Blood Count 8.1 K/mm3 (4.4-11.0)
[2022-11-10] MEDS: HYDROmorphone 1 MG/ML Syringe IV (20:29)
[2022-11-10] MEDS: 0.9% Normal Saline 1,000 ML 1000 ML IV (20:29)
[2022-11-10] MEDS: Ondansetron 4 MG/2 ML Vial IV (20:29)
--- NOTE | 2022-11-10 20:35 | RAD_ITS ---
STUDY: X-RAY CHEST REASON FOR EXAM: Male, 37 years old. epigastric TECHNIQUE: AP portable COMPARISON: None. FINDINGS: There is less than optimal inspiratory effort however the lungs are clear. There is no demonstrated pleural abnormality. Normal size heart. Normal mediastinum and ina. Normal visualized pulmonary arteries. Normal visualized aortic arch and descending thoracic aorta. Normal visualized thoracic spine. Normal visualized ribs, clavicles, and shoulders. There is no demonstrated abnormality of the visualized soft tissue structures of the upper abdomen. RAD/Chest 1 View (Portable) IMPRESSION: Diminished inspiratory effort. No acute disease Electronically Signed: Keith Daniel MD at 21:37 EDT ,
[2022-11-10 20:47] LABS: ALB/GLOB Ratio 0.9 RATIO (0.9-2.4); AST(SGOT) 43 U/L (15-37); Alanine Aminotransfer ALT/SGPT 143 U/L (16-61); Albumin, Serum 3.6 g/dL (3.2-5.0); Alkaline Phosphatase 77 U/L (45-117); Anion Gap 8 (5-15); BUN 17 mg/dL (7-18); BUN/Creat Ratio 17.4 RATIO (10-20); Calcium,Total 9.6 mg/dL (8.5-10.1); Chloride 103 mmol/L (98-107); Creatinine, Serum 0.98 mg/dL (0.70-1.30); EST Glomerular Filtration Rate 91 mL/min (>60); Est Glom Filt Rate - Afr Amer 111 mL/min (>60); Estimated Creatinine Clearance 108.85 ml/min; Globulin 4.2 g/dL (2.2-4.2); Glucose 95 mg/dL (74-106); Lipase 53 U/L (13-75); Potassium 3.8 mmol/L (3.5-5.1); Protein, Total 7.8 g/dL (6.4-8.2); Sodium Level 134 mmol/L (136-145)
[2022-11-10 20:54] LABS: Lactic Acid 2.1 mmol/L (0.4-1.9)
[2022-11-10 22:14] VITALS: RESP 18
[2022-11-10] MEDS: Mag Hydrox/Al Hydrox/Simeth 30 ML UDC 15 ML PO (22:41)
[2022-11-11 00:25] LABS: Reflex Lactate? Y
== END 2022-11-10 23:40 | disposition home or self-care (01) ==
PROVIDERS: Nurse Practitioner; Emergency Provider Emergency Medicine; Visit Provider Emergency Medicine
DX: R10.13 Epigastric pain (principal); F31.9 Bipolar disorder, unspecified; Z87.891 Personal history of nicotine dependence; I10 Essential (primary) hypertension; Z79.899 Other long term (current) drug therapy; Z86.718 Personal history of other venous thrombosis and embolism
CPT/HCPCS: 71045; 80053; 83605; 83690; 85025; 96361; 96374; 96375; 99282; J7030; A4216; J2405

== ENCOUNTER 2022-11-11 11:19 | Emergency (ER) | payer MEDICAID, SELFPAY ==
[2022-11-11 11:20] VITALS: BP 69/49; PULSE 124; RESP 32; TEMP 35.5; O2SAT 97
[2022-11-11 11:25] VITALS: BMI 40.4
[2022-11-11 11:26] VITALS: BP 156/112; PULSE 77; RESP 24; O2SAT 100
[2022-11-11 11:31] VITALS: BP 171/105; PULSE 71; RESP 22; O2SAT 100
--- NOTE | 2022-11-11 11:38 | CT_ITS ---
HISTORY: epigastric abdominal pain s/p gastric bypass surgery. TECHNIQUE: Helically acquired images were obtained of the abdomen and pelvis after the intravenous administration of 100 mL Isovue-370. A radiation dose optimization technique was used for this scan. 495 images. COMPARISON: 11/18/2021. FINDINGS: LOWER CHEST: Superior extent of moderate pneumomediastinum incompletely imaged. Trace right pleural effusion. Hiatal hernia repair with postoperative fluid collection measuring approximately 2.7 x 5.5 cm. BOWEL: Nasogastric tube tip at the gastroesophageal junction. Gastric bypass with postoperative the orientation of the stomach and postoperative edema at the gastrojejunal anastomosis. Mildly dilated fluid-filled small bowel loops with fecalization and transition zone at the small bowel anastomosis in the left midabdomen. Mild associated mesenteric edema. Appendix nondilated. Colonic diverticulosis without focal inflammatory change observed. PERITONEUM: Mild mesenteric edema trace perihepatic free fluid. LIVER: Fatty infiltration with 2.7 cm hypoenhancing region in the left lateral lobe. GALLBLADDER/BILIARY TREE: Gallbladder present. SPLEEN/PANCREAS/ADRENAL GLANDS: Unremarkable. KIDNEYS: No hydronephrosis. Chronic right upper pole cortical thinning. VESSELS: No abdominal aortic aneurysm. PELVIC ORGANS: Prominent bladder wall likely secondary to underdistention. Chronic small prostate calcifications. Mild free fluid in the pelvis. ABDOMINAL WALL: Anterior postoperative air and edema. Small fat-containing inguinal hernias. BONES: Intact. CT/Abdomen/Pelvis W IV Cont ONLY IMPRESSION: Multiple dilated fluid-filled small bowel loops with fecalization and transition zone at the left mid abdominal small bowel anastomosis, favoring small bowel obstruction over postoperative ileus. Hiatal hernia repair with moderate pneumomediastinum and postoperative air-fluid collection in the posterior mediastinum extending into the hiatus. Trace right pleural effusion. Upper GI series may be helpful to exclude anastomotic leak. Mild mesenteric edema, bowel wall edema, and free fluid, likely due to the combination of postoperative change and small bowel obstruction. Hepatic steatosis with a small hypoenhancing region in the left lateral lobe, which may represent postoperative edema or portal perfusion defect. Electronically Signed: Karina Rushing MD at 13:00 EDT ,
--- NOTE | 2022-11-11 11:40 | ED.VIS.GI ---
HPI HPI - GI History of Present Illness Chief Complaint: Abd Pain Informant: patient and family Abdominal Pain/Flank Pain Onset: Days Context: Gradual Onset Timing: Intermittent Quality: Sharp and Stabbing Location: Epigastric Current Severity: Moderate Maximum Severity: Moderate Worsened by: Nothing Relieved by: Nothing Nausea/Vomiting/Emesis GI Symptom: Negative for Nausea or Vomiting Diarrhea/Melena/Hematochezia GI Symptom: Negative for Diarrhea, Melena or Hematochezia Associated Symptoms Associated Symptoms: Negative for Dysuria, Frequency or Hematuria Narrative Narrative: 37-year-old male history of bipolar, DVT and hypertension. Had recent gastric bypass surgery done in [facility] on the . Was discharged on . Was seen here on Saturday for epigastric abdominal pain with a negative work-up. States the pain is back. He describes the pain as a fist, wrapped in razor blades punching him in his upper abdomen. Denies nausea, vomiting or diarrhea. Denies fever or chills. Denies melena or hematemesis. No chest pain. Prior similar symptoms: Yes Recent Illness/Hospitalization: Yes PFSH PFS Medical History ADHD Adrenal benign tumor Anemia Benign essential HTN Bipolar disorder Chronic pain Degenerative disc disease GERD (gastroesophageal reflux disease) Hiatal hernia History of DVT (deep vein thrombosis) Hypertension Kidney stones Migraines Obstructive sleep apnea Smoker Substance abuse Home Medications gabapentin 300 mg capsule 300 mg PO BID PRN mood 04/08/20 [History Last Taken Unknown] gabapentin 300 mg capsule 300 mg PO QHS mood 04/08/20 [History Last Taken 11/24/20] calcium carb-ergocalciferol (vit D2) 600 mg calcium-200 unit tablet 1 tab PO DAILY 11/10/22 [History Last Taken Unknown] diphenhydramine HCl 25 mg capsule (Benadryl) 25 mg PO QHS PRN Sleep 11/10/22 [History Last Taken Unknown] enoxaparin 40 mg/0.4 mL subcutaneous syringe (Lovenox) 40 mg subcut Q12H 11/10/22 [History Last Taken Unknown] fluoxetine 40 mg capsule 40 mg PO DAILY 11/10/22 [History Last Taken Unknown] oxcarbazepine 600 mg tablet (Trileptal) 600 mg PO BID 11/10/22 [History Last Taken Unknown] quetiapine 400 mg tablet,extended release 24 hr 200 mg PO BID 11/10/22 [History Last Taken Unknown] sucralfate 100 mg/mL oral suspension (Carafate) 10 ml PO .qid #420 mL 11/10/22 [Rx Last Taken Unknown] tramadol 50 mg tablet 50 mg PO Q8 PRN Pain 11/10/22 [History Last Taken Unknown] ursodiol 300 mg capsule 300 mg PO BID 11/10/22 [History Last Taken Unknown] Allergy/AdvReac Type Severity Reaction Status Date / Time cinnamon Allergy Anaphylaxis Verified 11/11/22 11:24 codeine Allergy PT UNSURE Verified 11/11/22 11:24 OF REACTION Surgical History H/O hernia repair H/O lithotripsy History of colonoscopy History of esophagogastroduodenoscopy (EGD) History of gastric bypass History of total adrenalectomy Hx of tonsillectomy Social History Smoking Status: Former smoker substance use type: does not use ROS ROS ED ROS Narrative Epigastric abdominal pain. Review of Systems ROS Unobtainable: Denies due to encephalopathy Constitutional Constitutional ED: Denies chills or fever(s) ENT ENT ED: Denies ear pain Cardiovascular Cardiovascular: Denies chest pain Respiratory/Chest Respiratory/Chest: Denies cough or dyspnea Gastrointestinal Gastrointestinal: Reports abdominal pain; Denies constipation, diarrhea, melena, nausea or vomiting Genitourinary Genitourinary ED: Denies dysuria or hematuria Musculoskeletal Musculoskeletal: Denies arthralgias or back pain Integumentary Denies abscess Neurologic Neurologic: Denies headache(s) Psychiatric Psychiatric: Denies anxiety Endocrine Endocrinology: Denies polydipsia Hematologic/Lymphatic Hematologic/Lymphatic: Denies easy bleeding Allergic/Immunologic Allergic/Immunologic ED: Denies mouth swelling or tongue swelling EXAM Physical Exam Narrative Exam Narrative: 37-year-old male complaining of pain. Vital signs are stable afebrile. Initial blood pressure was 69/49. I think that was an error repeat blood pressure was 156/112 5 minutes later. HEENT exam unremarkable. Moist with members. Neck nontender. Lungs clear to auscultation. Heart regular rhythm rate about 80. No murmur. Abdomen well-healing surgical incisions. Dry and clean. He has epigastric tenderness out of proportion to exam. Right upper right lower quadrant unremarkable. He is not distended. There are no peritoneal signs. Moving all 4 extremities. Nontender no edema. Neurologically is awake and alert. Back nontender. Const Vital Signs: 11/11/22 11:20 11/11/22 11:26 11/11/22 11:31 Temperature 95.9 F L Temperature Source Temporal Pulse Rate 124 H 77 71 Respiratory Rate 32 H 24 H 22 H Blood Pressure 69/49 L 156/112 H 171/105 H Blood Pressure Mean 55 126 127 Pulse Ox 97 100 100 Oxygen Delivery Method Room Air Room Air Room Air Positive well nourished, well developed and obese; Negative for cachectic, contractures or unkempt General Appearance ED: well developed and NAD; Negative for unkempt, cachectic, contractures or pallor Nutritional Appearance: obese; Negative for cachectic HEENT Reports moist mucous membranes normocephalic and atraumatic; Negative for trauma or tenderness Eyes PERRL and EOMs intact bilaterally General Eye ED: Negative for pale conjunctiva or scleral icterus Neck no lymphadenopathy, supple and no JVD General: Negative for tenderness Carotids: Negative for other Lymph Lymphatic: Negative for other Resp normal respiratory effort and clear to auscultation bilaterally Effort and Inspection: Negative for respiratory distress Auscultation: Negative for rales, rhonchi or wheezes Cardio regular rate, regular rhythm, S1 normal heart sound, S2 normal heart sound and no murmurs Rate: Negative for bradycardia or tachycardic Rhythm: Negative for abnormal rhythm GI non-distended and no masses; Negative for non-tender GI Narrative: Well-healing surgical incisions. Dry and clean. No distention. Inspection: Negative for abdominal distention Auscultation: normoactive bowel sounds Palpation: soft and tender; Negative for guarding, rigid, hepatomegaly, splenomegaly, hernia, mass, pulsatile mass or rebound tenderness present Back/Spine no CVA tenderness General Back: Negative for CVA tenderness Cervical Spine: Negative for cervical spine tenderness Thoracic Spine / Upper Back: Negative for thoracic spinal tenderness Lumbar Spine / Lower Back: Negative for lumbar spinal tenderness Extremity full ROM General Extremety ED: Negative for edema or tenderness General Extremity: Negative for edema Neuro CN's II-XII intact bilaterally and moves all extremities Sensorium / Orientation: alert, oriented to person, oriented to place and oriented to time; Negative for orientation impaired, confused, lethargic or stuporous Motor Exam: strength 5/5 throughout Psych mental status grossly normal and thought process normal Appearance: Negative for unkempt Attitude: No agitated Mood & Affect: Negative for depressed, anxious or tearful Skin no wounds General Skin Exam: Negative for jaundice or pallor Lesions: no lesions Rashes: no rashes Trauma: abrasion Nails: Negative for discolored MDM MDM MDM Narrative Medical decision making narrative: 29-year-old male with epigastric abdominal pain status post recent gastric bypass. I reviewed his work-up and labs from yesterday were all unremarkable. He spoke to his gastric bypass surgeon yesterday. Did not feel imaging was necessary. My suspicion is this is reflux or gastritis. I will redo the labs from yesterday and compare them. We given Dilaudid for pain which seemed to improve him yesterday. I will obtain a CAT scan. Reviewing old visits. He had 4 CAT scans of his abdomen in 2020. Repeat exam patient is improved after his IV medications. He has return of his pain and he is also being given GI cocktail and awaiting the Protonix. He and I have gone over his lab results which are basically normal unchanged from the other day. Awaiting his CAT scan results. CAT scan shows partial bowel structure versus ileus. Patient is given another half milligram of Dilaudid after his initial dose. I have already spoken to [facility] transfer line and waiting to speak to their surgeon or call back from them to see if they will accept the patient in transfer since he just had surgery there 5 days ago. Patient is stable. He is aware of his test results. History & Record Review Discussion w/independent historian: Patient Lab Data Attestation: I reviewed the patient's lab results. Lab results narrative: CBC shows a white count 7.9. H&H of 15 and 45. It is normal. Electrolytes sodium 134. Gap is 7. Normal BUN and creatinine. Liver enzymes are basically normal. AST is 39 ALT slightly elevated 127. Lipase is normal at 72. Glucose is 112. Labs are unremarkable. CAT scan shows a partial small bowel obstruction versus ileus as read by the radiologist and reviewed by me. Labs: Laboratory Results - last 24 hr 11/11/22 11/11/22 11:27 11:27 WBC 7.9 RBC 5.60 Hgb 15.6 Hct 45.4 MCV 81.1 MCH 27.9 MCHC 34.4 RDW Std Deviation 36.8 RDW Coeff of Michael 12.7 Plt Count 333 MPV 10.6 Immature Gran % (Auto) 0.400 Neut % (Auto) 64.7 Lymph % (Auto) 20.6 [place] % (Auto) 12.8 H Eos % (Auto) 1.1 Baso % (Auto) 0.4 Absolute Neuts (auto) 5.1 Absolute Lymphs (auto) 1.63 Nucleated RBC % 0 Sodium 134 L Potassium 4.1 Chloride 104 Carbon Dioxide 23.0 Anion Gap 7 BUN 17 Creatinine 0.93 Estim Creat Clear Calc 114.70 Est GFR (MDRD) Af Amer 116 Est GFR (MDRD) Non-Af 96 BUN/Creatinine Ratio 18.2 Glucose 112 H Calcium 9.8 Total Bilirubin 0.60 AST 39 H ALT 127 H Alkaline Phosphatase 87 Total Protein 8.2 Albumin 3.8 Globulin 4.4 H Albumin/Globulin Ratio 0.9 Lipase 72 Radiography Diagnostic Testing: Clinical Impression(s) from Imaging Studies Abdomen/Pelvis CT 11/11/22 11:38 IMPRESSION: Multiple dilated fluid-filled small bowel loops with fecalization and transition zone at the left mid abdominal small bowel anastomosis, favoring small bowel obstruction over postoperative ileus. Hiatal hernia repair with moderate pneumomediastinum and postoperative air-fluid collection in the posterior mediastinum extending into the hiatus. Trace right pleural effusion. Upper GI series may be helpful to exclude anastomotic leak. Mild mesenteric edema, bowel wall edema, and free fluid, likely due to the combination of postoperative change and small bowel obstruction. Hepatic steatosis with a small hypoenhancing region in the left lateral lobe, which may represent postoperative edema or portal perfusion defect. Electronically Signed: Karina Rushing MD at 13:00 EDT , Discharge Plan Triage Chief Complaint: Abd Pain ED Provider: Bruce Paige Dx/Rx/DC Orders Clinical Impression: Abdominal pain, Hx of gastric bypass, Postoperative intestinal obstruction Prescriptions: No Action gabapentin 300 MG capsule 300 mg PO QHS gabapentin 300 MG capsule 300 mg PO BID PRN (Reason: mood) enoxaparin [Lovenox] 40 mg/0.4 mL Syringe 40 mg SUBCUT Q12H tramadol 50 mg tablet 50 mg PO Q8 PRN (Reason: Pain) oxcarbazepine [Trileptal] 600 mg Tablet 600 mg PO BID quetiapine 400 mg tablet extended release 24 hr 200 mg PO BID Label Comments: TAKE 1 TABLET BY MOUTH AT BEDTIME fluoxetine 40 mg capsule 40 mg PO DAILY ursodiol [Actigall] 300 mg Capsule 300 mg PO BID diphenhydramine HCl [Benadryl] 25 mg Capsule 25 mg PO QHS PRN (Reason: Sleep) Calcium + Vitamin D 600 mg calcium- 200 unit Tablet 1 tab PO DAILY sucralfate [Carafate] 100 mg/mL suspension 10 ml PO .qid Qty: 420 0RF Primary Care Provider: Care Physician,No Primary Referrals: Care Physician,No Primary [Primary Care Provider] - Disposition Disposition: Acute Care Hospital
[2022-11-11] MEDS: Ondansetron 4 MG/2 ML Vial IV (11:43)
[2022-11-11] MEDS: HYDROmorphone 1 MG/ML Syringe IV (11:45)
[2022-11-11 11:47] LABS: Absolute Lymphocyte Count 1.63 X10^3/uL (0.83-4.51); Absolute Neutrophil Count 5.1 X10^3/uL (2.0-7.7); Basophil# 0.03 X10^3/uL; Basophil% 0.4 % (0-1); Eosinophil# 0.09 X10^3/uL; Eosinophils% 1.1 % (0-5); Hematocrit 45.4 % (40-54); Hemoglobin 15.6 g/dL (13.0-16.5); Lymphocyte # 1.63 X10^3/ul (0.83-4.51); Lymphocyte % 20.6 % (19-41); Mean Corp Hgb Conc 34.4 g/dL (32-36); Mean Corpuscular Hgb 27.9 pg (27.0-32.0); Mean Corpuscular Volume 81.1 fL (80-94); Mean Platelet Vol. 10.6 fl (6.2-12.0); Monocyte# 1.01 X10^3/uL; Monocyte% 12.8 % (0-10); NRBC Flagged by Analyzer 0 % (0-5); Neutrophil # 5.12 X10^3/uL (2.7-7.7); Neutrophil % 64.7 % (47-70); Platelet Count 333 K/mm3 (150-450); RBC Distribution Width CV 12.7 % (11.6-14.6); RBC Distribution Width SD 36.8 fl (35.1-43.9); White Blood Count 7.9 K/mm3 (4.4-11.0)
[2022-11-11 12:04] LABS: ALB/GLOB Ratio 0.9 RATIO (0.9-2.4); AST(SGOT) 39 U/L (15-37); Alanine Aminotransfer ALT/SGPT 127 U/L (16-61); Albumin, Serum 3.8 g/dL (3.2-5.0); Alkaline Phosphatase 87 U/L (45-117); Anion Gap 7 (5-15); BUN 17 mg/dL (7-18); BUN/Creat Ratio 18.2 RATIO (10-20); Calcium,Total 9.8 mg/dL (8.5-10.1); Chloride 104 mmol/L (98-107); Creatinine, Serum 0.93 mg/dL (0.70-1.30); EST Glomerular Filtration Rate 96 mL/min (>60); Est Glom Filt Rate - Afr Amer 116 mL/min (>60); Globulin 4.4 g/dL (2.2-4.2); Glucose 112 mg/dL (74-106); Lipase 72 U/L (13-75); Potassium 4.1 mmol/L (3.5-5.1); Protein, Total 8.2 g/dL (6.4-8.2); Sodium Level 134 mmol/L (136-145)
[2022-11-11] MEDS: Mag Hydrox/Al Hydrox/Simeth 30 ML UDC PO (12:28)
[2022-11-11] MEDS: 0.9% Normal Saline 1,000 ML 999 ML IV (12:30)
--- NOTE | 2022-11-11 13:12 | NURSING ---
CALLED [facility] ABOUT TRANSFER. BOWEL OBSTRUCTION
[2022-11-11] MEDS: HYDROmorphone 0.5 MG/0.5 ML SYRINGE IV (13:15)
--- NOTE | 2022-11-11 13:15 | NURSING ---
FAXED FACESHEET TO [facility]
[2022-11-11 13:19] VITALS: BP 174/97; PULSE 71; RESP 18; TEMP 36.8; O2SAT 99
--- NOTE | 2022-11-11 13:45 | NURSING ---
CALLED [facility], ETA IS 30 MIN
--- NOTE | 2022-11-11 13:55 | ED.RN ---
Per doctor, NG tube not to be inserted.
[2022-11-11 14:00] VITALS: PULSE 71; RESP 24; O2SAT 99
[2022-11-11 14:27] VITALS: PULSE 71; RESP 24; TEMP 36.8; O2SAT 99
== END 2022-11-11 14:30 | disposition short-term general hospital (02) ==
PROVIDERS: Emergency Provider Emergency Medicine; Visit Provider Emergency Medicine
DX: R10.9 Unspecified abdominal pain (principal); F31.9 Bipolar disorder, unspecified; I10 Essential (primary) hypertension; Z98.84 Bariatric surgery status; Z87.891 Personal history of nicotine dependence; K91.30 Postprocedural intestinal obstruction, unspecified as to partial versus complete; G47.33 Obstructive sleep apnea (adult) (pediatric); Z86.718 Personal history of other venous thrombosis and embolism
CPT/HCPCS: 74177; 80053; 83690; 85025; 96361; 96374; 96375; 99284; J7030; Q9967; A4216; J2405; J3490

== ENCOUNTER 2023-03-12 16:32 | Emergency (ER) | payer MEDICAID, SELFPAY ==
[2023-03-12 16:33] VITALS: BP 113/82; PULSE 61; RESP 16; TEMP 36.6; O2SAT 100; BMI 32.0
--- NOTE | 2023-03-12 16:38 | ED.RN ---
MOM DUSTY [phone]. PER PT, OK TO GIVE MOTHER INFORMATION.
--- NOTE | 2023-03-12 16:57 | EDS_ITS ---
HPI HPI - Psych History of Present Illness Chief Complaint: Anxiety Informant: patient Narrative Narrative: Patient presents with increased anxiety and stress. He states he has been under a lot of stress recently. He states both he and his have been working a lot. They have had trouble keeping their house clean. They had a cat that tended to urinate everywhere. They got rid of the cat but they have not fully cleaned up. He states children services came out and talked about taking the children if the place is not cleaned up. But evidently they were out yesterday and stated that the family has some time to do this. But th edin came out today and stated they are not to take 2 of the children. They took 2 younger children. They had this patient take their 15-year-old autistic son to his parents house. The older child is going to stay to help clean up. Patient just feels overwhelmed. He states his is kind of blaming him for this although they both live there. But he states he is not suicidal or homicidal. He wants to get better. He wants to clean up the house and get the children back. He is still working. He states he just has trouble focusing because he feels so stressed and very anxious. Is not quite a panic attack but his anxiety is very high. He thinks it would be best if he could maybe spend the night in a hotel. This would give his a break. And this would let him get rest. He came in here because he just did not know where else to go right away. He did start seeing a counselor again about a week or 2 ago. He sees them every Saturday. He also saw a psychiatrist past Saturday. He is on medications for his anxiety including Trileptal gabapentin fluoxetine. Patient states he is also concerned because he has a history of getting blood clots when he is stressed. But he is not having symptoms of that. He states he gets a little bit of a headache but that is chronic for him it is no different. He has no numbness tingling weakness swelling pain trouble breathing cough or p alpitations. He is not on Lovenox now. He was on that for a while after his gastric bypass in October. He did lose weight after the bypass which he is happy with. [facility] Medical History ADHD Adrenal benign tumor Anemia Benign essential HTN Bipolar disorder Chronic pain Degenerative disc disease GERD (gastroesophageal reflux disease) Hiatal hernia History of DVT (deep vein thrombosis) Hypertension Kidney stones Migraines Obstructive sleep apnea Smoker Substance abuse Home Medications gabapentin 300 mg capsule 300 mg PO BID PRN mood 04/08/20 [History Last Taken Unknown] gabapentin 300 mg capsule 300 mg PO QHS mood 04/08/20 [History Last Taken 11/24/20] calcium carb-ergocalciferol (vit D2) 600 mg calcium-200 unit tablet 1 tab PO DAILY 11/10/22 [History Last Taken Unknown] diphenhydramine HCl 25 mg capsule (Benadryl) 25 mg PO QHS PRN Sleep 11/10/22 [History Last Taken Unknown] enoxaparin 40 mg/0.4 mL subcutaneous syringe (Lovenox) 40 mg subcut Q12H 11/10/22 [History Last Taken Unknown] fluoxetine 40 mg capsule 40 mg PO DAILY 11/10/22 [History Last Taken Unknown] oxcarbazepine 600 mg tablet (Trileptal) 600 mg PO BID 11/10/22 [History Last Taken Unknown] quetiapine 400 mg tablet,extended release 24 hr 200 mg PO BID 11/10/22 [History Last Taken Unknown] sucralfate 100 mg/mL oral suspension (Carafate) 10 ml PO .qid #420 mL 11/10/22 [Rx Last Taken Unknown] tramadol 50 mg tablet 50 mg PO Q8 PRN Pain 11/10/22 [History Last Taken Unknown] ursodiol 300 mg capsule 300 mg PO BID 11/10/22 [History Last Taken Unknown] acetaminophen 500 mg tablet 500 mg PRN pain 11/11/22 [History Last Taken Unknown] hydroxyzine pamoate 25 mg capsule 50 mg (2 x 25 mg) PO TID PRN PRN Anxiety #20 CAPSULES 03/12/23 [Rx Last Taken Unknown] Allergy/AdvReac Type Severity Reaction Status Date / Time cinnamon Allergy Anaphylaxis Verified 03/12/23 16:33 codeine Allergy PT UNSURE Verified 03/12/23 16:33 OF REACTION Surgical History H/O hernia repair H/O lithotripsy History of colonoscopy History of esophagogastroduodenoscopy (EGD) History of gastric bypass History of total adrenalectomy Hx of tonsillectomy Social History Smoking Status: Former smoker substance use type: does not use ROS ROS ED ROS Narrative A complete review of systems was performed and is negative except as documented in the history of present illness. Some specific details below. Constitutional: No recent fevers or chills. No rigors. Patient has not generally felt ill. EYE: No discharge, visual complaints, or pain. ENT: No difficulty swallowing. No sore throat. CV: No chest pain, pressure or aching. No palpitations or irregular beats. Patient has not been presyncopal or syncopal. Respiratory: No trouble breathing. No cough. No wheezing. No sputum production. No pain with breathing. No hemoptysis. GI: No abdominal pain. No nausea vomiting diarrhea. No blood in stool. : No frequency dysuria or hematuria. Musculoskeletal: No recent trauma. No pains. No swelling. No cramping. Skin: No rash. Nondiaphoretic. Neuro: No weakness or numbness. Psychiatry: See history of present illness. Endocrine: No polyuria or polydipsia. EXAM Physical Exam Narrative Exam Narrative: CONSTITUTIONAL: Patient is nontoxic in appearance. The patient looks comfortable. Work of breathing looks normal. He does make good eye contact. He is a really pretty good informant for the details. He is also very inconsistent. HEENT: No notable trauma. Mucous membranes moist. No sinus tenderness. EYES: No conjunctival injection. No proptosis. No pain with range of motion. No pallor. No icterus. NECK: No meningismus. No JVD. CARDIOVASCULAR: Regular rate. Regular rhythm. No notable murmur. No JVD. Normal peripheral pulses. RESPIRATORY: No respiratory distress. Breathing is unlabored. No wheezes. No rhonchi. No rales. No pain with a deep breath. No coughing while I am in the room. GASTROINTESTINAL: Not distended. Bowel sounds are normal. No tenderness. No guarding. No rebound. No palpable mass. No bruit. GENITOURINARY: No tenderness over the bladder. No CVA tenderness. MUSCULOSKELETAL: Atraumatic. No peripheral edema. No cord. No tenderness along the deep venous system. No asymmetry. NEUROLOGICAL: Patient is alert and oriented. No focal deficit noted. SKIN: No noted rashes. No diaphoresis. No vesicles noted. No notable pallor. PSYCHIATRIC: Patient is calm. Patient does seem a little bit stressed. When he makes excellent eye contact. He has a positive view for the future. His thought is if he can get his house cleaned and keep his job the children will be able to come back. He is also concerned about his future relationship with his . But he states he thinks that we will get better also if they get their house cleaned and things get better. His thoughts are for the future. He is not suicidal or homicidal. He has never thought of hurting any of his children. Const Vital Signs: 03/12/23 16:33 Temperature 97.8 F Temperature Source Oral Pulse Rate 61 Respiratory Rate 16 Blood Pressure 113/82 H Blood Pressure Mean 92 Pulse Ox 100 Oxygen Delivery Method Room Air MDM MDM MDM Narrative Medical decision making narrative: Patient is not suicidal or homicidal. There is no indication to pink slipped him at all. He does not want to come in the hospital. He wants to maybe stay at a hotel for 1 or 2 nights to be able to get some rest. Then he wants to address some of the issues and problems to make those better. I will write for some hydroxyzine to see if that will help him. He already is helped in with both counseling services medications. He has not taken extra of them. He is taking them appropriately. I discussed that if he ever has any thoughts of hurting himself or anyone else or he feels that there is no way out or no chance of improvement he should definitely return. We are willing to help him but at this time both he does not want to come in the hospital and I do not think he needs that. I certainly cannot pink slip him. Discharge Plan Triage Chief Complaint: Anxiety ED Provider: Ky Navarro Dx/Rx/DC Orders Clinical Impression: History of bipolar disorder, Acute reaction to stress, Anxiety Instructions: Identifying Causes of Stress, ED Anxiety Reaction Prescriptions: New hydroxyzine pamoate [hydroxyzine pamoate] 25 mg capsule 50 mg PO TID PRN PRN (Reason: Anxiety) Qty: 20 0RF No Action gabapentin 300 MG capsule 300 mg PO QHS gabapentin 300 MG capsule 300 mg PO BID PRN (Reason: mood) enoxaparin [Lovenox] 40 mg/0.4 mL Syringe 40 mg SUBCUT Q12H tramadol 50 mg tablet 50 mg PO Q8 PRN (Reason: Pain) oxcarbazepine [Trileptal] 600 mg Tablet 600 mg PO BID Patient Comments: 300mg in the AM and 900mg at HS quetiapine 400 mg tablet extended release 24 hr 200 mg PO BID Patient Comments: TAKE 1 TABLET BY MOUTH AT BEDTIME fluoxetine 40 mg capsule 40 mg PO DAILY ursodiol [Actigall] 300 mg Capsule 300 mg PO BID diphenhydramine HCl [Benadryl] 25 mg Capsule 25 mg PO QHS PRN (Reason: Sleep) Calcium + Vitamin D 600 mg calcium- 200 unit Tablet 1 tab PO DAILY sucralfate [Carafate] 100 mg/mL suspension 10 ml PO .qid Qty: 420 0RF acetaminophen 500 mg tablet 500 mg PRN (Reason: pain) Patient Comments: TAKE 2 TABLETS BY MOUTH EVERY 6 HOURS FOR 7 DAYS . START AFTER SURGERY Primary Care Provider: Care Physician,No Primary Referrals: Care Physician,No Primary [Primary Care Provider] - Activity Restrictions/Additional Instructions: Follow-up with both your counselor and psychiatrist as scheduled. If you ever have thoughts of hurting yourself or others please return so we can help. Disposition Disposition: Home, Self Care
[2023-03-12] MEDS: hydrOXYzine PAM 25 MG Capsule 50 MG PO (17:40)
--- NOTE | 2023-03-12 17:42 | CM.ED ---
Social Work SW contacted by [facility] fitness worker, Barbara, and reports patient is coming to ED from [facility] counseling appointment. Patient had 2 out of 4 children removed from his home today due to the condition of the home. Patient is also having marital issues as patient's is blaming the patient for the condition of the home and children being removed. Barbara also reports patient has a heart condition that causes patient to have blood clots when he is stressed. Main concern is patient has been tearful and unable to calm down at [facility], so they are concerned about his heart condition. Patient is denying SI/HI and is active with counseling and psychiatric services. SW consulted with MD Melanie MD reports no need for full MH evaluation. SW to provide emotional support and discuss other resources. SW met with patient and introduced self and role as [facility] SW. Patient seated on hospital bed and agreeable to speak with SW. SW engaged patient in conversation regarding recent events. Patient reviewed recent changes at home and conflict with his . Patient explained his son with Autism is staying with the paternal grandparents, the oldest child is still home to assist with cleaning and the youngest two children are at a detention. Patient expressed frustration regarding his children refusing to help with chores. Patient also expressed his frustration with his as they have different expectations regarding the responsibility of house chores. Patient denied SI/HI but reports feeling stressed and feels he needs a couple days at a hotel so he can have a break from his and think about what he wants to do next. Patient explained his father and brother left their families and the patient wants to avoid doing the same. SW provided emotional support and encouragement. Patient reports he and his have to engage in parenting classes and clean the home before the kids can return. Patient also reports he is working with a homemaker through [employer] to improve the quality of the home. SW reviewed [facility] resource lists as well as coping skills for anxiety. Patient receptive towards information and reports no other needs. SW encouraged patient to return to ED or contact [facility] crisis if symptoms increase or worsen, patient voices understanding. Plan: home, emotional support and resources provided Mariza HENDERSON, KYLE
== END 2023-03-12 17:43 | disposition home or self-care (01) ==
PROVIDERS: Emergency Provider Emergency Medicine; Visit Provider Emergency Medicine
DX: F43.0 Acute stress reaction (principal); F31.9 Bipolar disorder, unspecified; Z87.891 Personal history of nicotine dependence; F41.9 Anxiety disorder, unspecified; I10 Essential (primary) hypertension; Z79.899 Other long term (current) drug therapy
CPT/HCPCS: 99285

== ENCOUNTER 2023-07-18 17:47 | Emergency (ER) | payer BC, MEDICAID, SELFPAY ==
[2023-07-18 17:48] VITALS: BP 129/85; PULSE 58; RESP 18; TEMP 36.3; O2SAT 100; BMI 28.7
--- NOTE | 2023-07-18 19:36 | EDS_ITS ---
HPI History of Present Illness Chief Complaint: Other, Pain/Inj Narrative Narrative: -year-old male presenting with acute onset left calf pain. Started when he was at work today.'s progressively gotten worse. Patient states that 2007 he had a DVT in the left lower extremity was admitted to [facility] on a heparin drip and bridged to Coumadin. He states he was on Coumadin as an outpatient at that time. Patient states that a year ago he was diagnosed with a blood clot and is unsure if it was superficial or. He states he was on a blood thinner for about 3 weeks and had not been on anything since. Denies chest pain or shortness of breath. He states he has a genetic predisposition to blood clots but does not know what that is. He states that his mother had blood clots and his father had blood clots. Patient also states that his blood clots were caused by stress. Patient states that it was described to him as when he gets stressed out and the blood starts to flow to his leg it starts to insult the vein and then the clot forms and will go away. [facility] Medical History ADHD Adrenal benign tumor Anemia Benign essential HTN Bipolar disorder Chronic pain Degenerative disc disease GERD (gastroesophageal reflux disease) Hiatal hernia History of DVT (deep vein thrombosis) Hypertension Kidney stones Migraines Obstructive sleep apnea Smoker Substance abuse Home Medications gabapentin 300 mg capsule 300 mg PO BID PRN mood 04/08/20 [History Last Taken Unknown] gabapentin 300 mg capsule 300 mg PO QHS mood 04/08/20 [History Last Taken 11/24/20] calcium carb-ergocalciferol (vit D2) 600 mg calcium-200 unit tablet 1 tab PO DAILY 11/10/22 [History Last Taken Unknown] diphenhydramine HCl 25 mg capsule (Benadryl) 25 mg PO QHS PRN Sleep 11/10/22 [History Last Taken Unknown] enoxaparin 40 mg/0.4 mL subcutaneous syringe (Lovenox) 40 mg subcut Q12H 11/10/22 [History Last Taken Unknown] fluoxetine 40 mg capsule 40 mg PO DAILY 11/10/22 [History Last Taken Unknown] oxcarbazepine 600 mg tablet (Trileptal) 600 mg PO BID 11/10/22 [History Last Taken Unknown] quetiapine 400 mg tablet,extended release 24 hr 200 mg PO BID 11/10/22 [History Last Taken Unknown] sucralfate 100 mg/mL oral suspension (Carafate) 10 ml PO .qid #420 mL 11/10/22 [Rx Last Taken Unknown] tramadol 50 mg tablet 50 mg PO Q8 PRN Pain 11/10/22 [History Last Taken Unknown] ursodiol 300 mg capsule 300 mg PO BID 11/10/22 [History Last Taken Unknown] acetaminophen 500 mg tablet 500 mg PRN pain 11/11/22 [History Last Taken Unknown] hydroxyzine pamoate 25 mg capsule 50 mg (2 x 25 mg) PO TID PRN PRN Anxiety #20 CAPSULES 03/12/23 [Rx Last Taken Unknown] Allergy/AdvReac Type Severity Reaction Status Date / Time cinnamon Allergy Anaphylaxis Verified 07/18/23 17:48 codeine Allergy PT UNSURE Verified 07/18/23 17:48 OF REACTION Surgical History H/O hernia repair H/O lithotripsy History of colonoscopy History of esophagogastroduodenoscopy (EGD) History of gastric bypass History of total adrenalectomy Hx of tonsillectomy Social History Smoking Status: Former smoker substance use type: does not use ROS ROS ED Constitutional Constitutional ED: Denies chills, fever(s) or sweats Eyes Eyes: Denies blurry vision or change in vision ENT ENT ED: Denies ear pain or sore throat Cardiovascular Cardiovascular: Denies chest pain, palpitations or racing heartbeat Respiratory/Chest Respiratory/Chest: Denies cough, dyspnea or sputum Gastrointestinal Gastrointestinal: Denies abdominal pain, constipation, diarrhea, nausea or vomiting Genitourinary Genitourinary ED: Denies dysuria, hematuria or urinary frequency Musculoskeletal Musculoskeletal: Reports other Details: Left calf pain ; Denies arthralgias, myalgias or neck pain Integumentary Denies abscess, Abrasions or rash Neurologic Neurologic: Denies headache(s), paresthesias or weakness Psychiatric Psychiatric: Denies anxiety, depression, suicidal ideation or suicidal thoughts Endocrine Endocrinology: Denies polydipsia or polyuria EXAM Physical Exam Const Vital Signs: 07/18/23 17:48 07/18/23 18:02 Temperature 97.4 F L Temperature Source Temporal Pulse Rate 58 L Respiratory Rate 18 Respiratory Effort Normal Non-Labored Blood Pressure 129/85 H Blood Pressure Mean 99 Pulse Ox 100 Oxygen Delivery Method Room Air Positive well nourished General Appearance ED: NAD HEENT Reports moist mucous membranes normocephalic and atraumatic Chest Wall inspection of chest normal Resp normal respiratory effort and no retractions Cardio regular rate Rate: bradycardia Extremity Extremity Narrative: Palpation mid left calf. No swelling, discoloration, redness. Neurovascularly intact Neuro oriented x3 Sensorium / Orientation: alert Motor Exam: strength 5/5 throughout Psych mental status grossly normal Skin no wounds MDM MDM MDM Narrative Medical decision making narrative: Patient presenting with left calf pain. Differential clues DVT, muscle strain. Patient will have duplex of the lower extremity. Ultrasound left lower extremity is negative. Patient counseled on findings. Discharged home in stable condition. Impression: 1. Left calf pain 2. History of DVT Radiography Diagnostic Testing: Clinical Impression(s) from Imaging Studies Venous Duplex 07/18/23 19:38 IMPRESSION: Normal left lower extremity duplex venous ultrasound. Electronically Signed: Freddy Guajardo DO at 20:30 EST , Discharge Plan Triage Chief Complaint: Other, Pain/Inj ED Provider: Geo Robertson Dx/Rx/DC Orders Instructions: ED Leg Spasm Prescriptions: No Action gabapentin 300 MG capsule 300 mg PO QHS gabapentin 300 MG capsule 300 mg PO BID PRN (Reason: mood) enoxaparin [Lovenox] 40 mg/0.4 mL Syringe 40 mg SUBCUT Q12H tramadol 50 mg tablet 50 mg PO Q8 PRN (Reason: Pain) oxcarbazepine [Trileptal] 600 mg Tablet 600 mg PO BID Patient Comments: 300mg in the AM and 900mg at HS quetiapine 400 mg tablet extended release 24 hr 200 mg PO BID Patient Comments: TAKE 1 TABLET BY MOUTH AT BEDTIME fluoxetine 40 mg capsule 40 mg PO DAILY ursodiol [Actigall] 300 mg Capsule 300 mg PO BID diphenhydramine HCl [Benadryl] 25 mg Capsule 25 mg PO QHS PRN (Reason: Sleep) Calcium + Vitamin D 600 mg calcium- 200 unit Tablet 1 tab PO DAILY sucralfate [Carafate] 100 mg/mL suspension 10 ml PO .qid Qty: 420 0RF acetaminophen 500 mg tablet 500 mg PRN (Reason: pain) Patient Comments: TAKE 2 TABLETS BY MOUTH EVERY 6 HOURS FOR 7 DAYS . START AFTER SURGERY hydroxyzine pamoate [hydroxyzine pamoate] 25 mg capsule 50 mg PO TID PRN PRN (Reason: Anxiety) Qty: 20 0RF Primary Care Provider: EILEEN PEÑALOZA Referrals: EILEEN PEÑALOZA [Other] Disposition Disposition: Home, Self Care
--- NOTE | 2023-07-18 19:38 | US_ITS ---
EXAM: US DUPLEX LEFT LOWER EXTREMITY VEINS CLINICAL INDICATION: LT POSTERIOR CALF PAIN TECHNIQUE: Real-time duplex ultrasound scan of the left lower extremity veins integrating B-mode two-dimensional vascular structure, Doppler spectral analysis, color flow Doppler imaging and compression. COMPARISON: 01/25/2022 FINDINGS: DEEP VEINS: No significant abnormality. No DVT in the visualized common femoral, femoral, proximal deep femoral or popliteal veins. The veins demonstrate normal color flow, are normally compressible, with normal phasic flow and/or augmentation response. No DVT is identified within the left posterior tibial or peroneal veins. Normal right common femoral vein. SUPERFICIAL VEINS: No significant abnormality. No thrombus in the visualized great saphenous vein. SOFT TISSUES: No significant findings. No popliteal cyst. US/Venous Duplex Imag/Limited/Uni IMPRESSION: Normal left lower extremity duplex venous ultrasound. Electronically Signed: Freddy Guajardo DO at 20:30 EST ,
[2023-07-18 20:47] VITALS: PULSE 59; RESP 16; O2SAT 100
== END 2023-07-18 20:51 | disposition home or self-care (01) ==
PROVIDERS: Emergency Provider Student in an Organized Health Care Education/Training Program; Visit Provider Student in an Organized Health Care Education/Training Program
DX: M79.662 Pain in left lower leg (principal); F31.9 Bipolar disorder, unspecified; Z87.891 Personal history of nicotine dependence; I10 Essential (primary) hypertension; Z86.718 Personal history of other venous thrombosis and embolism; Z79.01 Long term (current) use of anticoagulants; Z79.899 Other long term (current) drug therapy
CPT/HCPCS: 93971; 99282

== ENCOUNTER 2023-08-31 19:31 | Emergency (ER) | payer BC, MEDICAID, SELFPAY ==
[2023-08-31 19:32] VITALS: BP 119/94; PULSE 63; RESP 15; TEMP 36.1; O2SAT 100
--- NOTE | 2023-08-31 19:38 | EDS_ITS ---
HPI History of Present Illness Chief Complaint: Flank Pain PFSH PFSH Medical History ADHD Adrenal benign tumor Anemia Benign essential HTN Bipolar disorder Chronic pain Degenerative disc disease GERD (gastroesophageal reflux disease) Hiatal hernia History of DVT (deep vein thrombosis) Hypertension Kidney stones Migraines Obstructive sleep apnea Smoker Substance abuse Home Medications gabapentin 300 mg capsule 300 mg PO BID PRN mood 04/08/20 [History Last Taken Unknown] gabapentin 300 mg capsule 300 mg PO QHS mood 04/08/20 [History Last Taken 11/24/20] calcium carb-ergocalciferol (vit D2) 600 mg calcium-200 unit tablet 1 tab PO DAILY 11/10/22 [History Last Taken Unknown] diphenhydramine HCl 25 mg capsule (Benadryl) 25 mg PO QHS PRN Sleep 11/10/22 [History Last Taken Unknown] enoxaparin 40 mg/0.4 mL subcutaneous syringe (Lovenox) 40 mg subcut Q12H 11/10/22 [History Last Taken Unknown] fluoxetine 40 mg capsule 40 mg PO DAILY 11/10/22 [History Last Taken Unknown] oxcarbazepine 600 mg tablet (Trileptal) 600 mg PO BID 11/10/22 [History Last Taken Unknown] quetiapine 400 mg tablet,extended release 24 hr 200 mg PO BID 11/10/22 [History Last Taken Unknown] sucralfate 100 mg/mL oral suspension (Carafate) 10 ml PO .qid #420 mL 11/10/22 [Rx Last Taken Unknown] tramadol 50 mg tablet 50 mg PO Q8 PRN Pain 11/10/22 [History Last Taken Unknown] ursodiol 300 mg capsule 300 mg PO BID 11/10/22 [History Last Taken Unknown] acetaminophen 500 mg tablet 500 mg PRN pain 11/11/22 [History Last Taken Unknown] hydroxyzine pamoate 25 mg capsule 50 mg (2 x 25 mg) PO TID PRN PRN Anxiety #20 CAPSULES 03/12/23 [Rx Last Taken Unknown] Allergy/AdvReac Type Severity Reaction Status Date / Time cinnamon Allergy Anaphylaxis Verified 08/31/23 19:36 codeine Allergy PT UNSURE Verified 08/31/23 19:36 OF REACTION Surgical History H/O hernia repair H/O lithotripsy History of colonoscopy History of esophagogastroduodenoscopy (EGD) History of gastric bypass History of total adrenalectomy Hx of tonsillectomy Social History Smoking Status: Former smoker substance use type: does not use EXAM Physical Exam Const Vital Signs: 08/31/23 19:32 08/31/23 20:18 Temperature 96.9 F L 96.9 F L Temperature Source Temporal Temporal Pulse Rate 63 63 Respiratory Rate 15 15 Blood Pressure 119/94 H 119/94 H Blood Pressure Mean 102 102 Pulse Ox 100 100 Oxygen Delivery Method Room Air Room Air MDM MDM MDM Narrative Medical decision making narrative: HISTORY OF PRESENT ILLNESS: 38-year-old male presents with a chief concern of intermittent left-sided flank pain that is exacerbated by speaking loudly, moving or sitting. He denies any urinary issues. He further states no history of kidney stones with no history of gastric bypass. Denies any hematuria. Denies any diarrhea constipation. Denies any trauma. REVIEW OF SYSTEMS: Pertinent positives: Flank pain, testicular pain Pertinent negatives: Vomiting, fever, urinary complaints, changes to bowel habits PHYSICAL EXAM: Nursing triage notes reviewed, Vital signs reviewed Constitutional: please see mdm HENT: MMM Eyes: Pupils equal round and reactive to light, Extraocular muscles intact Neck: No stridor, no JVD, full neck ROM Lungs: Clear to auscultation, No wheezing or rales. No increased work of breathing, no conversational dyspnea, no accessory muscle use, no nasal flaring. No respiratory distress noted Heart: Regular rate and rhythm, No murmurs, No rubs and No gallops, 2+ distal pulses (radial, femoral, posterior tibial) in all extremities Abdomen: Soft, left lower quadrant TTP, free reducible left inguinal hernia noted, no rigidity, rebound or guarding, no obvious peritoneal signs, no palpable pulsatile abdominal masses, no auscultated abdominal bruit : No CVAT Extremities: No edema Neuro: No focal neurological deficits, cranial nerves II through XII intact, 5/5 strength in all extremities. Intact sensation to light touch in all extremities, 2+ reflexes bilateral patella tendons. Normal gait. No ataxia. Skin: No rash or lesions noted MEDICAL DECISION MAKING: Chief Complaint: Flank pain External records reviewed: Imaging studies reviewed: CT scan of the abdomen pelvis from October 2022 shows no hydronephrosis, no nephrolithiasis Factors affecting care: HTN Social determinants of health: none History obtained from others: none Consults: none [facility] Narrative: Patient was hemodynamically stable, afebrile, nontoxic-appearing. Exam with reproducible left inguinal hernia. I considered the following differential diagnosis: Hernia, nephrolithiasis, testicular torsion, epididymitis, musculoskeletal injury I obtained a broad lab and imaging workup to further elucidate the etiology patient complaints. I treated patient symptomatic with IV morphine, fluids and Zofran. I obtained a broad lab and imaging workup to further elucidate etiology patient complaints. ALL IMAGES (IF OBTAINED) HAVE BEEN PERSONALLY REVIEWED AND INTERPRETED BY MYSELF. CBC without leukocytosis, noted mild anemia but no thrombocytopenia CMP without evidence of acute kidney injury, significant electrolyte abnormality, anion gap, no evidence hepatobiliary pathology. Lactate is wnl indicating no end-organ hypoperfusion and/or hypoxia. Urinalysis without evidence of UTI, no hematuria and mild ketonuria, no evidence of pyelonephritis Lipase elevated but not consistent with acute pancreatitis Testicular ultrasound shows normal bilateral testicles CT scan of the abdomen pelvis shows no evidence of intra-abdominal pathology, no nephrolithiasis or incarcerated hernia Synthesis the patient history physical exam labs and images suggest no acute life-limiting etiology. My initial exam that I felt a left inguinal hernia that was freely reducible. Given this I will give the patient general surgery follow-up. Tylenol ibuprofen pr and instructions were given. Strict return precautions were discussed The patient and/or family, caregivers express understanding. The patient and/or family, caregivers agrees with the plan. Shared decision making: I will have a discussion with the patient and or visitors regarding risk/benefits of further testing or admission. They will be made aware of of the risk/benefits inherent in this decision they will be given the opportunity to voice understanding. Total critical care time today provided was at least 0 minutes. This excludes separately billable procedures. Critical care time (if documented) is secondary to the patient having high probability of clinically significant/life threatening deterioration in the patient's condition which required my urgent intervention. Impression: 1. Left inguinal hernia 2. Elevated lipase 3. Hematuria Dispo: Discharge This note was generated with [employer]onateation software. It may contain incorrect words, spelling, and punctuation that were not noted in review of the chart prior to signing. Lab Data Labs: Laboratory Results - last 24 hr 08/31/23 08/31/23 20:17 20:30 WBC 6.9 RBC 4.43 L Hgb 12.5 L Hct 37.7 L MCV 85.1 MCH 28.2 MCHC 33.2 RDW Std Deviation 38.3 RDW Coeff of Michael 12.4 Plt Count 204 MPV 9.8 Immature Gran % (Auto) 0.300 Neut % (Auto) 52.1 Lymph % (Auto) 35.8 [place] % (Auto) 7.8 Eos % (Auto) 3.0 Baso % (Auto) 1.0 Absolute Neuts (auto) 3.6 Absolute Lymphs (auto) 2.47 Nucleated RBC % 0 Sodium 141 Potassium 4.1 Chloride 110 H Carbon Dioxide 29.0 Anion Gap 2 L BUN 12 Creatinine 0.87 Est GFR (MDRD) Af Amer 126 Est GFR (MDRD) Non-Af 104 BUN/Creatinine Ratio 13.8 Glucose 89 Lactic Acid 0.8 Calcium 9.3 Total Bilirubin 0.40 AST 17 ALT 13 L Alkaline Phosphatase 102 Total Protein 6.8 Albumin 3.9 Globulin 2.9 Albumin/Globulin Ratio 1.3 Lipase 112 H Urine Color Yellow Urine Clarity Sl. Cloudy Urine pH 6.0 Ur Specific [place]hers 1.020 Urine Protein 30 H Urine Glucose (UA) Normal Urine Ketones 5 H Urine Occult Blood 250 H Urine Nitrite Negative Urine Bilirubin Negative Urine Urobilinogen 4 H Ur Leukocyte Esterase 25 H Radiography Diagnostic Testing: Clinical Impression(s) from Imaging Studies Testicular Ultrasound 08/31/23 19:57 IMPRESSION: Normal bilateral testicles. Electronically Signed: Lj Bean MD at 21:05 EST Reading Location ID and State: [employer] / [place] Tel , Service support , Abdomen/Pelvis CT 08/31/23 19:59 IMPRESSION: No acute abnormality. Electronically Signed: Lj Bean MD at 21:43 EST Reading Location ID and State: [id number] / [place] [employer] , Service support , Discharge Plan Triage Chief Complaint: Flank Pain ED Provider: Shakeel Castro Dx/Rx/DC Orders Prescriptions: No Action gabapentin 300 MG capsule 300 mg PO QHS gabapentin 300 MG capsule 300 mg PO BID PRN (Reason: mood) enoxaparin [Lovenox] 40 mg/0.4 mL Syringe 40 mg SUBCUT Q12H tramadol 50 mg tablet 50 mg PO Q8 PRN (Reason: Pain) oxcarbazepine [Trileptal] 600 mg Tablet 600 mg PO BID Patient Comments: 300mg in the AM and 900mg at HS quetiapine 400 mg tablet extended release 24 hr 200 mg PO BID Patient Comments: TAKE 1 TABLET BY MOUTH AT BEDTIME fluoxetine 40 mg capsule 40 mg PO DAILY ursodiol [Actigall] 300 mg Capsule 300 mg PO BID diphenhydramine HCl [Benadryl] 25 mg Capsule 25 mg PO QHS PRN (Reason: Sleep) Calcium + Vitamin D 600 mg calcium- 200 unit Tablet 1 tab PO DAILY sucralfate [Carafate] 100 mg/mL suspension 10 ml PO .qid Qty: 420 0RF acetaminophen 500 mg tablet 500 mg PRN (Reason: pain) Patient Comments: TAKE 2 TABLETS BY MOUTH EVERY 6 HOURS FOR 7 DAYS . START AFTER SURGERY hydroxyzine pamoate [hydroxyzine pamoate] 25 mg capsule 50 mg PO TID PRN PRN (Reason: Anxiety) Qty: 20 0RF Primary Care Provider: EILEEN PEÑALOZA Referrals: EILEEN PEÑALOZA [Other]
--- NOTE | 2023-08-31 19:57 | US_ITS ---
STUDY: SCROTUM ULTRASOUND REASON FOR EXAM: Male, 38 years old. left testicular pain TECHNIQUE: Ultrasound evaluation of the scrotum was performed with color Doppler and static lang-scale imaging. COMPARISON: None. FINDINGS: RIGHT TESTICLE INTRATESTICULAR: There is a normal size of the right testicle. The right testicle measures 2.8 x 2.7 x 2.0 cm. There is a homogenous echotexture. There is normal arterial and normal venous vascularity. There is no demonstrated right testicular mass or cyst. EXTRATESTICULAR: The epididymis is normal in size. The epididymis head measures 0.6 x 0.7 x 0.8 cm. There is normal vascularity of the epididymis. There is no demonstrated epididymal cystic structure. There is a small hydrocele. There is no demonstrated varicocele. There is no demonstrated extratesticular mass or cyst. LEFT TESTICLE INTRATESTICULAR: There is a normal size of the left testicle. The left testicle measures 2.9 x 2.0 x 1.7 cm. There is a homogenous echotexture. There is normal arterial and normal venous vascularity. There is no demonstrated left testicular mass or cyst. EXTRATESTICULAR: The epididymis is normal in size. The epididymis head measures 1.0 x 0.8 x 1.0 cm. There is normal vascularity of the epididymis. There is no demonstrated epididymal cystic structure. There is a small hydrocele. There is no demonstrated varicocele. There is no demonstrated extratesticular mass or cyst. US/Testicular with Arterial Flow IMPRESSION: Normal bilateral testicles. Electronically Signed: Lj Bean MD at 21:05 EST ,
--- NOTE | 2023-08-31 19:59 | CT_ITS ---
STUDY: CT ABDOMEN AND PELVIS WITH CONTRAST REASON FOR EXAM: Male, 38 years old. left sided flank pain RADIATION DOSAGE (If Supplied By Facility): CTDIvol = ( 19.23 ) mGy, DLP = ( 1082.12 ) mGycm TECHNIQUE: Transaxial images were obtained from the dome of the diaphragm to the symphysis pubis without oral contrast. IV 100mL [id number]-[id number] was administered. Sagittal and coronal images were reconstructed. Individualized dose optimization techniques were used for this CT. COMPARISON: 11/11/2022 FINDINGS: The visualized lung bases are unremarkable. The visualized portions of the heart are within normal limits. Normal liver. Normal gallbladder and extrahepatic biliary system. Normal spleen. Normal pancreas. Normal bilateral adrenal glands. 3 mm nonobstructing stone in the midsection of right kidney. No hydronephrosis, ureteral stone, ureteral dilatation. Normal left kidney. Status post gastric surgery, possibly gastric bypass. Normal small intestine. Normal colon. The appendix is visualized and appears normal. Normal abdominal aorta. Normal inferior vena cava. Normal retroperitoneum. Normal urinary bladder. There are prostatic calcifications. Normal abdominal wall. Mild levoscoliosis lumbar spine. CT/Abdomen/Pelvis W IV Cont ONLY IMPRESSION: No acute abnormality. Electronically Signed: Lj eBan MD at 21:43 EST ,
[2023-08-31 20:18] VITALS: BP 119/94; PULSE 63; RESP 15; TEMP 36.1; O2SAT 100
[2023-08-31 20:25] LABS: Absolute Lymphocyte Count 2.47 X10^3/uL (0.83-4.51); Absolute Neutrophil Count 3.6 X10^3/uL (2.0-7.7); Basophil# 0.07 X10^3/uL; Eosinophil# 0.21 X10^3/uL; Hematocrit 37.7 % (40-54); Hemoglobin 12.5 g/dL (13.0-16.5); Lymphocyte # 2.47 X10^3/ul (0.83-4.51); Lymphocyte % 35.8 % (19-41); Mean Corp Hgb Conc 33.2 g/dL (32-36); Mean Corpuscular Hgb 28.2 pg (27.0-32.0); Mean Corpuscular Volume 85.1 fL (80-94); Mean Platelet Vol. 9.8 fl (6.2-12.0); Monocyte# 0.54 X10^3/uL; Monocyte% 7.8 % (0-10); NRBC Flagged by Analyzer 0 % (0-5); Neutrophil # 3.58 X10^3/uL (2.7-7.7); Neutrophil % 52.1 % (47-70); Platelet Count 204 K/mm3 (150-450); RBC Distribution Width CV 12.4 % (11.6-14.6); RBC Distribution Width SD 38.3 fl (35.1-43.9); Red Blood Count 4.43 M/mm3 (4.6-6.2); White Blood Count 6.9 K/mm3 (4.4-11.0)
[2023-08-31] MEDS: Morphine 4 MG/ML Syringe IV (20:25)
[2023-08-31] MEDS: 0.9% Normal Saline (1000mL) 1,000 ML 1000 ML IV (20:25)
[2023-08-31] MEDS: Ondansetron 4 MG/2 ML Vial IV (20:25)
[2023-08-31 20:36] LABS: Color, Urine Yellow (Yellow); Glucose, Dipstick Normal (Normal); Ketone-Dipstick 5 mg/dl (Negative); Leukocyte Esterase-Dipstick 25 /ul (Negative); Nitrite-Dipstick Negative (Negative); Occult Blood-Urine 250 /ul (Negative); Protein-Dipstick 30 mg/dl (Negative); Urine Bilirubin Dipstick Negative (Negative); Urine Clarity Sl. Cloudy (Clear); Urine Urobilinogen 4 mg/dl (Normal)
[2023-08-31 20:42] LABS: ALB/GLOB Ratio 1.3 RATIO (0.9-2.4); AST(SGOT) 17 U/L (15-37); Alanine Aminotransfer ALT/SGPT 13 U/L (16-61); Albumin, Serum 3.9 g/dL (3.2-5.0); Alkaline Phosphatase 102 U/L (45-117); Anion Gap 2 (5-15); BUN 12 mg/dL (7-18); BUN/Creat Ratio 13.8 RATIO (10-20); Calcium,Total 9.3 mg/dL (8.5-10.1); Chloride 110 mmol/L (98-107); Creatinine, Serum 0.87 mg/dL (0.70-1.30); EST Glomerular Filtration Rate 104 mL/min (>60); Est Glom Filt Rate - Afr Amer 126 mL/min (>60); Globulin 2.9 g/dL (2.2-4.2); Glucose 89 mg/dL (74-106); Lipase 112 U/L (13-75); Potassium 4.1 mmol/L (3.5-5.1); Protein, Total 6.8 g/dL (6.4-8.2); Sodium Level 141 mmol/L (136-145)
[2023-08-31 20:47] LABS: Lactic Acid 0.8 mmol/L (0.4-1.9)
[2023-08-31 22:45] VITALS: BP 155/103; PULSE 50; RESP 16; TEMP 36.1; O2SAT 100
== END 2023-08-31 22:50 | disposition home or self-care (01) ==
PROVIDERS: Emergency Provider Emergency Medicine; Visit Provider Emergency Medicine
DX: K40.90 Unilateral inguinal hernia, without obstruction or gangrene, not specified as recurrent (principal); F31.9 Bipolar disorder, unspecified; Z87.891 Personal history of nicotine dependence; R74.8 Abnormal levels of other serum enzymes; R31.9 Hematuria, unspecified; I10 Essential (primary) hypertension; G47.33 Obstructive sleep apnea (adult) (pediatric); Z86.718 Personal history of other venous thrombosis and embolism
CPT/HCPCS: 74177; 76870; 80053; 81002; 83605; 83690; 85025; 93976; 96361; 96374; 96375; 99282; J7030; Q9967; A4216; J2405

== ENCOUNTER 2023-09-09 14:57 | Emergency (ER) | payer BC, MEDICAID, SELFPAY ==
[2023-09-09 14:59] VITALS: BP 130/98; PULSE 81; RESP 18; TEMP 36.5; O2SAT 99; BMI 28.0
[2023-09-09 17:43] LABS: Absolute Lymphocyte Count 2.66 X10^3/uL (0.83-4.51); Absolute Neutrophil Count 3.1 X10^3/uL (2.0-7.7); Basophil# 0.05 X10^3/uL; Basophil% 0.8 % (0-1); Eosinophil# 0.22 X10^3/uL; Eosinophils% 3.4 % (0-5); Hematocrit 39.9 % (40-54); Hemoglobin 13.1 g/dL (13.0-16.5); Lymphocyte # 2.66 X10^3/ul (0.83-4.51); Lymphocyte % 40.6 % (19-41); Mean Corp Hgb Conc 32.8 g/dL (32-36); Mean Corpuscular Hgb 28.6 pg (27.0-32.0); Mean Corpuscular Volume 87.1 fL (80-94); Mean Platelet Vol. 9.6 fl (6.2-12.0); Monocyte# 0.55 X10^3/uL; Monocyte% 8.4 % (0-10); NRBC Flagged by Analyzer 0 % (0-5); Neutrophil # 3.06 X10^3/uL (2.7-7.7); Neutrophil % 46.6 % (47-70); Platelet Count 220 K/mm3 (150-450); RBC Distribution Width CV 12.8 % (11.6-14.6); RBC Distribution Width SD 40.3 fl (35.1-43.9); Red Blood Count 4.58 M/mm3 (4.6-6.2); White Blood Count 6.6 K/mm3 (4.4-11.0)
--- NOTE | 2023-09-09 17:48 | EDS_ITS ---
HPI HPI - GI History of Present Illness Chief Complaint: Abd Pain Narrative Narrative: 38-year-old male past medical history of gastric bypass surgery states that he was in the emergency department a week and a half ago and diagnosed with a left- sided inguinal hernia. States they have an ultrasound of his testicles and thought that maybe he had a kidney stone or something of that nature. He was supposed to see a surgeon in follow-up, Dr. Fierro, but they canceled and have to reschedule so he came to the emergency department because he states he has been having more pain. States he was not sent home with any analgesics, and the [id number] medications he was using was wearing off. He is nauseated but has not vomited. Additionally, he states he cannot have a complete bowel movement. He denies any redness to the area or other symptoms. Pain is worse with walking and relieved by nothing. PFSH PFS Medical History ADHD Adrenal benign tumor Anemia Benign essential HTN Bipolar disorder Chronic pain Degenerative disc disease GERD (gastroesophageal reflux disease) Hiatal hernia History of DVT (deep vein thrombosis) Hypertension Kidney stones Migraines Obstructive sleep apnea Smoker Substance abuse Home Medications gabapentin 300 mg capsule 300 mg PO BID PRN mood 04/08/20 [History Last Taken Unknown] gabapentin 300 mg capsule 300 mg PO QHS mood 04/08/20 [History Last Taken 11/24/20] calcium carb-ergocalciferol (vit D2) 600 mg calcium-200 unit tablet 1 tab PO DAILY 11/10/22 [History Last Taken Unknown] diphenhydramine HCl 25 mg capsule (Benadryl) 25 mg PO QHS PRN Sleep 11/10/22 [History Last Taken Unknown] enoxaparin 40 mg/0.4 mL subcutaneous syringe (Lovenox) 40 mg subcut Q12H 11/10/22 [History Last Taken Unknown] fluoxetine 40 mg capsule 40 mg PO DAILY 11/10/22 [History Last Taken Unknown] oxcarbazepine 600 mg tablet (Trileptal) 600 mg PO BID 11/10/22 [History Last Taken Unknown] quetiapine 400 mg tablet,extended release 24 hr 200 mg PO BID 11/10/22 [History Last Taken Unknown] sucralfate 100 mg/mL oral suspension (Carafate) 10 ml PO .qid #420 mL 11/10/22 [Rx Last Taken Unknown] tramadol 50 mg tablet 50 mg PO Q8 PRN Pain 11/10/22 [History Last Taken Unknown] ursodiol 300 mg capsule 300 mg PO BID 11/10/22 [History Last Taken Unknown] acetaminophen 500 mg tablet 500 mg PRN pain 11/11/22 [History Last Taken Unknown] hydroxyzine pamoate 25 mg capsule 50 mg (2 x 25 mg) PO TID PRN PRN Anxiety #20 CAPSULES 03/12/23 [Rx Last Taken Unknown] dicyclomine 20 mg tablet 20 mg PO TID PRN abdominal pain #20 tabs 09/09/23 [Rx Last Taken Unknown] Allergy/AdvReac Type Severity Reaction Status Date / Time cinnamon Allergy Anaphylaxis Verified 09/09/23 14:59 codeine Allergy PT UNSURE Verified 09/09/23 14:59 OF REACTION Surgical History H/O hernia repair H/O lithotripsy History of colonoscopy History of esophagogastroduodenoscopy (EGD) History of gastric bypass History of total adrenalectomy Hx of tonsillectomy Social History Smoking Status: Former smoker substance use type: does not use ROS ROS ED ROS Narrative Constitutional: No fever, no chills. HEENT: No sore throat. No neck pain. No loss of vision. No rhinorrhea. Cardiovascular: No chest pain. No palpitations. No pedal edema. Respiratory: No cough, no shortness of breath. Abdominal: Left lower quadrant/left inguinal abdominal pain. Positive nausea. No vomiting. Incomplete bowel movements Genitourinary: No dysuria. No hematuria. Musculoskeletal: No myalgias. No arthralgias. Neurologic: No headaches. No dizziness. No lightheadedness. Skin: No rash. No change in color. Psychiatric: No depression. No anxiety. EXAM Physical Exam Narrative Exam Narrative: Afebrile. Vital signs noted. HEENT: Normocephalic. Atraumatic. PERRL, EOMI. Neck soft and supple. No point tenderness or step off. Cardiovascular: Regular rate and rhythm. No murmurs, rubs, or gallops appreciated. Respiratory: No tachypnea. Lungs clear to auscultation bilaterally. Gastrointestinal: Abdomen soft, mild tenderness in left lower quadrant over questionable lipoma, with normoactive bowel sounds. No rebound or guarding. No erythema, no incarcerated hernia. Neurological: Awake. Alert. Nonfocal, nonlateralizing. Skin: No rash. Normal color. No pallor. Musculoskeletal: No pedal edema. Full range of motion extremities. Const Vital Signs: 09/09/23 14:59 09/09/23 19:00 Temperature 97.7 F L Temperature Source Temporal Pulse Rate 81 53 L Respiratory Rate 18 16 Blood Pressure 130/98 H 124/78 H Blood Pressure Mean 108 93 Pulse Ox 99 98 Oxygen Delivery Method Room Air Room Air MDM MDM MDM Narrative Medical decision making narrative: I reviewed the prior records of the patient in the ED visit. His CT showed no evidence of incarcerated hernia, but clinically I do not think that there is an inguinal hernia present. Nursing protocol labs were started and he has normal white count of 6.6. I will reimage him with a CT of the abdomen and pelvis with IV contrast. I did review his prior ED visit, the prior CT, and see no evidence of an inguinal hernia. His laboratory work from today was reviewed and he has a normal white count of 6.6, hemoglobin 13.1, hematocrit 39.9, platelet count normal at 220. His CMP is remarkable for chloride of 113, and an ALT low at 14. Urinalysis is negative for infection on review, I do not feel antibiotics are indicated, there are few calcium oxalate crystals along with RBCs. CT report for today's CT of the abdomen pelvis/radiology report was reviewed. Appendix appears normal. There is no evidence of an inguinal hernia in the soft tissues as well. They also comment on no interval change from the previous. At this point in time, I am unsure as to the cause of his left lower quadrant abdomi nal/flank pain. There is also no evidence of obstructing ureteral stone. I do not feel that narcotic analgesia is indicated, but as he has had a history of gastric bypass, I do not feel that Toradol is a good choice. He was given a Bentyl here in the emergency department and a prescription to use as needed. I suggested that he could still follow-up with the surgeon for second opinion regarding whether or not a hernia is present. I feel he be discharged to follow-up. Return instructions were reviewed. Disposition is discharged home in stable condition. History & Record Review Discussion w/independent historian: Patient Additional record(s) reviewed:: Prior ED visit and Prior labs Lab Data Attestation: I reviewed the patient's lab results. Labs: Laboratory Results - last 24 hr 09/09/23 09/09/23 17:35 18:54 WBC 6.6 RBC 4.58 L Hgb 13.1 Hct 39.9 L MCV 87.1 MCH 28.6 MCHC 32.8 RDW Std Deviation 40.3 RDW Coeff of Michael 12.8 Plt Count 220 MPV 9.6 Immature Gran % (Auto) 0.200 Neut % (Auto) 46.6 L Lymph % (Auto) 40.6 [place] % (Auto) 8.4 Eos % (Auto) 3.4 Baso % (Auto) 0.8 Absolute Neuts (auto) 3.1 Absolute Lymphs (auto) 2.66 Nucleated RBC % 0 Sodium 143 Potassium 4.0 Chloride 113 H Carbon Dioxide 30.0 Anion Gap 0 L BUN 11 Creatinine 0.93 Estim Creat Clear Calc 123.21 Est GFR (MDRD) Af Amer 117 Est GFR (MDRD) Non-Af 96 BUN/Creatinine Ratio 11.9 Glucose 78 Calcium 8.7 Total Bilirubin 0.30 AST 16 ALT 14 L Alkaline Phosphatase 117 Total Protein 6.9 Albumin 3.8 Globulin 3.1 Albumin/Globulin Ratio 1.2 Urine Color Yellow Urine Clarity Sl. Cloudy Urine pH 5.0 Ur Specific [place] 1.015 Urine Protein 15 H Urine Glucose (UA) Normal Urine Ketones Negative Urine Occult Blood 50 H Urine Nitrite Negative Urine Bilirubin Negative Urine Urobilinogen 1 H Ur Leukocyte Esterase 100 H Urine RBC 10-25 SEEN Urine WBC 0 SEEN Ur Squamous Epith Cells 0 SEEN Calcium Oxalate Crystal 1+ Urine Bacteria 0 SEEN Urine Mucus 0 SEEN Radiography Diagnostic Testing: Clinical Impression(s) from Imaging Studies Abdomen/Pelvis CT 09/09/23 18:25 IMPRESSION: No acute findings in the abdomen or pelvis. There has been no significant change from the reference exam. Electronically Signed: Marquis Ward MD at 19:17 EST , Discharge Plan Triage Chief Complaint: Abd Pain ED Provider: Mohan De Jesus Dx/Rx/DC Orders Clinical Impression: Abdominal pain, LLQ Instructions: ED Flank Pain, Uncertain Cause, ED Abdominal Pain Unkn Cause Male... Prescriptions: New dicyclomine 20 mg tablet 20 mg PO TID PRN (Reason: abdominal pain) Qty: 20 0RF No Action gabapentin 300 MG capsule 300 mg PO QHS gabapentin 300 MG capsule 300 mg PO BID PRN (Reason: mood) enoxaparin [Lovenox] 40 mg/0.4 mL Syringe 40 mg SUBCUT Q12H tramadol 50 mg tablet 50 mg PO Q8 PRN (Reason: Pain) oxcarbazepine [Trileptal] 600 mg Tablet 600 mg PO BID Patient Comments: 300mg in the AM and 900mg at HS quetiapine 400 mg tablet extended release 24 hr 200 mg PO BID Patient Comments: TAKE 1 TABLET BY MOUTH AT BEDTIME fluoxetine 40 mg capsule 40 mg PO DAILY ursodiol [Actigall] 300 mg Capsule 300 mg PO BID diphenhydramine HCl [Benadryl] 25 mg Capsule 25 mg PO QHS PRN (Reason: Sleep) Calcium + Vitamin D 600 mg calcium- 200 unit Tablet 1 tab PO DAILY sucralfate [Carafate] 100 mg/mL suspension 10 ml PO .qid Qty: 420 0RF acetaminophen 500 mg tablet 500 mg PRN (Reason: pain) Patient Comments: TAKE 2 TABLETS BY MOUTH EVERY 6 HOURS FOR 7 DAYS . START AFTER SURGERY hydroxyzine pamoate [hydroxyzine pamoate] 25 mg capsule 50 mg PO TID PRN PRN (Reason: Anxiety) Qty: 20 0RF Primary Care Provider: EILEEN PEÑALOZA Referrals: Baljit Mitchell MD [Med Staff - Active Staff] - As soon as possible NOT,DEFINED [Non-Staff] - Activity Restrictions/Additional Instructions: Follow-up with your primary care provider. Also, you should follow-up with Dr. Fierro for second opinion. Disposition Disposition: Home, Self Care
[2023-09-09 18:00] LABS: ALB/GLOB Ratio 1.2 RATIO (0.9-2.4); AST(SGOT) 16 U/L (15-37); Alanine Aminotransfer ALT/SGPT 14 U/L (16-61); Albumin, Serum 3.8 g/dL (3.2-5.0); Alkaline Phosphatase 117 U/L (45-117); Anion Gap 0 (5-15); BUN 11 mg/dL (7-18); BUN/Creat Ratio 11.9 RATIO (10-20); Calcium,Total 8.7 mg/dL (8.5-10.1); Chloride 113 mmol/L (98-107); Creatinine, Serum 0.93 mg/dL (0.70-1.30); EST Glomerular Filtration Rate 96 mL/min (>60); Est Glom Filt Rate - Afr Amer 117 mL/min (>60); Estimated Creatinine Clearance 123.21 ml/min; Globulin 3.1 g/dL (2.2-4.2); Glucose 78 mg/dL (74-106); Protein, Total 6.9 g/dL (6.4-8.2); Sodium Level 143 mmol/L (136-145)
--- NOTE | 2023-09-09 18:25 | CT_ITS ---
EXAM: CT ABDOMEN AND PELVIS WITH INTRAVENOUS CONTRAST CLINICAL INDICATION: left inguinal pain, question hernia TECHNIQUE: Helically acquired images were obtained of the abdomen and pelvis with intravenous contrast. This CT exam was performed using one or more of the following dose reduction techniques: automated exposure control, adjustment of the mA and/or kV according to patient size, and/or use of iterative reconstruction technique. CONTRAST: IV 100mL Isovue-370 COMPARISON: 08/31/2023 FINDINGS: LOWER THORAX: There is mild thickening of the wall the distal esophagus which may be due to incomplete distention. There are surgical sutures seen surrounding the gastroesophageal junction and proximal stomach. Lung bases are clear. No cardiomegaly. No significant pericardial effusion. ABDOMEN: LIVER: Unremarkable. Homogeneous. No focal mass. GALLBLADDER AND BILE DUCTS: Unremarkable. No calcified gallstones. No gallbladder distention or wall edema. No intra- or extrahepatic biliary ductal dilation. PANCREAS: Unremarkable. No focal cystic or solid mass. SPLEEN: Unremarkable. Normal size without focal cystic or solid mass. ADRENALS: Unremarkable. No nodules. KIDNEYS AND URETERS: There are nonobstructing calyceal stones in the right kidney. Normal renal size and position. STOMACH AND BOWEL: See above. PELVIS: APPENDIX: No evidence of acute appendicitis. BLADDER: Unremarkable. REPRODUCTIVE: Unremarkable as visualized. No mass. ABDOMEN and PELVIS: INTRAPERITONEAL SPACE: Unremarkable. No ascites or other fluid collection. No free air. BONES/JOINTS: Unremarkable. No suspicious lytic or blastic abnormality. SOFT TISSUES: Unremarkable. No discrete abdominal or pelvic wall hernia. VASCULATURE: Unremarkable. Abdominal aorta is non-dilated. LYMPH NODES: Unremarkable. No enlarged lymph nodes. CT/Abdomen/Pelvis W IV Cont ONLY IMPRESSION: No acute findings in the abdomen or pelvis. There has been no significant change from the reference exam. Electronically Signed: Marquis Ward MD at 19:17 EST ,
[2023-09-09 19:00] VITALS: BP 124/78; PULSE 53; RESP 16; O2SAT 98
[2023-09-09 19:00] LABS: Bacteria 0 SEEN /hpf (None Seen); Mucous, Urine 0 SEEN /hpf (<or=2+); Squamous Epithelial Cells - UA 0 SEEN /hpf (0-5); White Blood Cells 0 SEEN /hpf (0-5)
[2023-09-09 19:04] LABS: Color, Urine Yellow (Yellow); Glucose, Dipstick Normal (Normal); Ketone-Dipstick Negative (Negative); Leukocyte Esterase-Dipstick 100 /ul (Negative); Nitrite-Dipstick Negative (Negative); Occult Blood-Urine 50 /ul (Negative); Protein-Dipstick 15 mg/dl (Negative); Specific Gravity, Urine 1.015 (1.002-1.030); Urine Bilirubin Dipstick Negative (Negative); Urine Clarity Sl. Cloudy (Clear); Urine Urobilinogen 1 mg/dl (Normal)
[2023-09-09 19:12] LABS: Red Blood Cells-Urine 10-25 SEEN /hpf (0-5)
[2023-09-09 19:19] LABS: Calcium Oxalate Crystals Ur 1+ /hpf (<or=2+)
[2023-09-09 19:43] VITALS: BP 147/93; PULSE 50; RESP 16; TEMP 36.6; O2SAT 96
[2023-09-09] MEDS: Dicyclomine 10 MG Capsule 20 MG PO (19:47)
== END 2023-09-09 19:53 | disposition home or self-care (01) ==
PROVIDERS: Emergency Provider Emergency Medicine; Visit Provider Emergency Medicine
DX: R10.32 Left lower quadrant pain (principal); F31.9 Bipolar disorder, unspecified; Z87.891 Personal history of nicotine dependence; I10 Essential (primary) hypertension
CPT/HCPCS: 74177; 80053; 81001; 85025; 99283; Q9967; A4216

== ENCOUNTER 2023-11-24 15:04 | Emergency (ER) | payer BC, MEDICAID, SELFPAY ==
[2023-11-24 15:06] VITALS: BP 130/84; PULSE 63; RESP 18; TEMP 36.3; O2SAT 98; BMI 25.3
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
--- NOTE | 2023-11-24 17:05 | CT_ITS ---
STUDY: CT CERVICAL SPINE WITHOUT CONTRAST REASON FOR EXAM: Male, 38 years old. neck pain RADIATION DOSAGE (If Supplied By Facility): CTDIvol = ( 25.21 ) mGy, DLP = ( 628.21 ) mGycm TECHNIQUE: High resolution transaxial imaging was performed without contrast material. Sagittal and coronal images were reconstructed. Individualized dose optimization techniques were used for this CT. COMPARISON: None FINDINGS: Normal craniovertebral junction. Normal anterior atlantoaxial articulation. Normal odontoid process. Normal cervical lordosis. Normal vertebral bodies and posterior osseous elements. C2-3: Normal endplates. Normal disc height and morphology. Normal central canal and intervertebral neuroforamina. C3-4: Normal endplates. Normal disc height and morphology. Normal central canal and intervertebral neuroforamina. C4-5: Normal endplates. Normal disc height and morphology. Normal central canal and intervertebral neuroforamina. C5-6: Normal endplates. Normal disc height and morphology. Normal central canal and intervertebral neuroforamina. C6-7: Normal endplates. Normal disc height and morphology. Normal central canal and intervertebral neuroforamina. C7-T1: Normal endplates. Normal disc height and morphology. Normal central canal and intervertebral neuroforamina. 1.5 cm nodule decreased attenuation within left lobe of thyroid gland and follow-up thyroid ultrasound is recommended. CT/Spine Cervical without Contras IMPRESSION: Normal unenhanced CT examination of the cervical spine. Nodule left lobe of the thyroid gland and follow-up thyroid ultrasound is recommended. Electronically Signed: Lj Bean MD at 18:18 EDT ,
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
[2023-11-24] MEDS: Acetaminophen 325 MG Tablet 650 MG PO (17:40)
[2023-11-24] MEDS: Metoclopramide 5 MG TABLET PO (17:40)
[2023-11-24 18:46] VITALS: BP 125/72; PULSE 65; RESP 16; TEMP 37; O2SAT 99
== END 2023-11-24 19:07 | disposition home or self-care (01) ==
PROVIDERS: Emergency Provider Emergency Medicine; Visit Provider Emergency Medicine
DX: S06.0X0A Concussion without loss of consciousness, initial encounter (principal); F31.9 Bipolar disorder, unspecified; Z87.891 Personal history of nicotine dependence; R51.9 Headache, unspecified; I10 Essential (primary) hypertension; Z79.899 Other long term (current) drug therapy; V89.2XXA Person injured in unspecified motor-vehicle accident, traffic, initial encounter
CPT/HCPCS: 70450; 72125; 99283

== ENCOUNTER 2024-06-02 10:01 | Emergency (ER) | payer BC, SELFPAY ==
[2024-06-02 10:01] VITALS: BP 133/89; PULSE 59; RESP 19; TEMP 36; O2SAT 100
--- NOTE | 2024-06-02 10:37 | ED.VIS.BACK ---
HPI History of Present Illness Chief Complaint: Back Informant: patient Onset/Context/Timing Onset: Yesterday Context: Gradual Onset Timing: Continuous Quality: Sharp, Aching, Burning and Throbbing Location: Lumbar, Buttock and Right Leg Worsened by: improves with Movement Relieved by: Nothing Associated Symptoms Associated Symptoms: Numbness, Tingling and Radiation to Right Leg; Negative for Radiation to Left Leg, Fever, Abdominal Pain, Dysuria, Unable to Ambulate, Unable to Transfer, Urinary Retention, Urinary Incontinence, Constipation or Fecal Incontinence Narrative Narrative: Patient presents with back pain that began yesterday. Patient states it is gradually getting worse. Patient states it is constant. Patient states it is worse with any movement. Patient states nothing seems to help with it. Patient states the pain radiates down his right leg. Patient admits to some numbness and tingling. Patient denies any weakness. Patient denies any abdominal pain. Patient denies any saddle anesthesia. Patient denies any specific trauma or injury. [facility] Medical History Hiatal hernia Benign essential HTN Substance abuse Chronic pain GERD (gastroesophageal reflux disease) Smoker Hypertension Migraines Degenerative disc disease Anemia Kidney stones Adrenal benign tumor Obstructive sleep apnea ADHD Bipolar disorder History of DVT (deep vein thrombosis) Home Medications ?Medication ?Instructions ?Recorded ?Last Taken ?Type gabapentin 300 mg capsule 300 mg PO BID PRN mood 04/08/20 Unknown History gabapentin 300 mg capsule 300 mg PO QHS mood 04/08/20 11/24/20 History calcium carb-ergocalciferol (vit 1 tab PO DAILY 11/10/22 Unknown History D2) 600 mg calcium-200 unit tablet diphenhydramine HCl 25 mg capsule 25 mg PO QHS PRN Sleep 11/10/22 Unknown History (Benadryl) fluoxetine 40 mg capsule 40 mg PO DAILY 11/10/22 Unknown History oxcarbazepine 600 mg tablet 600 mg PO BID 11/10/22 Unknown History (Trileptal) quetiapine 400 mg tablet,extended 200 mg PO BID 11/10/22 Unknown History release 24 hr acetaminophen 500 mg tablet 500 mg PRN pain 11/11/22 Unknown History dicyclomine 20 mg tablet 20 mg PO TID PRN abdominal pain 09/09/23 Unknown Rx #20 tabs metoclopramide HCl 5 mg tablet 5 mg PO Q6H #12 tabs 11/24/23 Unknown Rx (Reglan) hydrocodone-acetaminophen 5-325mg 1 tab PO Q6H PRN PRN Pain 3 days 06/02/24 Unknown Rx 5mg-325mg #10 TABLETS Allergy/AdvReac Type Severity Reaction Status Date / Time cinnamon Allergy Anaphylaxis Verified 06/02/24 10:02 codeine Allergy PT UNSURE Verified 06/02/24 10:02 OF REACTION NSAIDS (Non-Steroidal AdvReac Other Verified 06/02/24 10:02 Anti-Inflamma Surgical History History of repair of hiatal hernia History of gastric bypass History of total adrenalectomy History of colonoscopy History of esophagogastroduodenoscopy (EGD) H/O lithotripsy Hx of tonsillectomy Social History Smoking Status: Former smoker substance use type: does not use ROS ROS ED Constitutional Constitutional ED: Denies chills or fever(s) Eyes Eyes: Denies blurry vision or change in vision ENT ENT ED: Reports rhinorrhea; Denies sore throat Cardiovascular Cardiovascular: Denies chest pain or palpitations Respiratory/Chest Respiratory/Chest: Reports cough; Denies dyspnea Gastrointestinal Gastrointestinal: Denies nausea or vomiting Genitourinary Genitourinary ED: Denies dysuria or hematuria Musculoskeletal Musculoskeletal: Reports back pain; Denies neck pain Integumentary Denies abscess or rash Neurologic Neurologic: Denies headache(s) or weakness Allergic/Immunologic Allergic/Immunologic ED: Denies mouth swelling or urticaria EXAM Physical Exam Const Vital Signs: 06/02/24 10:01 Temperature 96.8 F L Temperature Source Temporal Pulse Rate 59 L Respiratory Rate 19 H Blood Pressure 133/89 H Blood Pressure Mean 103 Pulse Ox 100 Oxygen Delivery Method Room Air Positive well nourished and well developed General Appearance ED: well developed and NAD HEENT Reports moist mucous membranes Neck supple and no JVD Back/Spine Back/Spine Narrative: There is tenderness over the right lumbar paraspinal muscles. There is mild midline tenderness. There is no bony crepitance or step-off. Range of motion of the lumbar spine was limited in all motions secondary to pain. Strength is 5/5 bilaterally in the lower extremities. Sensation was intact to light touch bilaterally in the lower extremities. Pedal pulses are equal bilaterally. Deep tendon reflexes are 2/4 bilaterally in the lower extremities. Straight leg raising produced pain in his low back but no radicular pain. Lumbar Spine / Lower Back: ROM limited and straight leg raise negative bilaterally Extremity normal to inspection General Extremety ED: Negative for edema or tenderness General Extremity: Negative for edema Neuro oriented x3 and no sensory deficits noted Sensorium / Orientation: alert Motor Exam: strength 5/5 throughout Psych mental status grossly normal MDM MDM MDM Narrative Medical decision making narrative: Prior to my examination, the patient was noted to be standing at the bedside. When I went into the room, patient was laying on the bed. Patient states she was having difficulty with any movement due to his back pain. Patient was given injection of morphine here. Patient states he does have a ride home. Patient was advised that this is most likely a muscular strain. Patient was given a prescription for a short course of [place]. Patient was instructed to use ice to the area. Patient was instructed to follow-up with his primary care physician in 5 to 7 days. Patient was instructed to return if worse in any way. Patient understood and was agreeable with the plan. All questions were answered. Discharge Plan Triage Chief Complaint: Back ED Provider: Tyler Gomez Dx/Rx/DC Orders Clinical Impression: Acute low back pain, Degenerative disc disease, lumbar Instructions: ED Back Sprain/Strain Prescriptions: New hydrocodone-acetaminophen 5-325 mg tablet 1 tab PO Q6H PRN PRN (Reason: Pain) 3 Days Qty: 10 0RF No Action gabapentin 300 MG capsule 300 mg PO QHS gabapentin 300 MG capsule 300 mg PO BID PRN (Reason: mood) oxcarbazepine [Trileptal] 600 mg Tablet 600 mg PO BID Patient Comments: 300mg in the AM and 900mg at HS quetiapine 400 mg tablet extended release 24 hr 200 mg PO BID Patient Comments: TAKE 1 TABLET BY MOUTH AT BEDTIME fluoxetine 40 mg capsule 40 mg PO DAILY diphenhydramine HCl [Benadryl] 25 mg Capsule 25 mg PO QHS PRN (Reason: Sleep) Calcium + Vitamin D 600 mg calcium- 200 unit Tablet 1 tab PO DAILY acetaminophen 500 mg tablet 500 mg PRN (Reason: pain) Patient Comments: TAKE 2 TABLETS BY MOUTH EVERY 6 HOURS FOR 7 DAYS . START AFTER SURGERY dicyclomine 20 mg tablet 20 mg PO TID PRN (Reason: abdominal pain) Qty: 20 0RF metoclopramide HCl [Reglan] 5 mg tablet 5 mg PO Q6H Qty: 12 0RF Primary Care Provider: Care Physician,No Primary Referrals: Care Physician,No Primary [Primary Care Provider] - Activity Restrictions/Additional Instructions: Follow-up with your primary care physician in 5 to 7 days. You may need physical therapy. Print Language: Marshallese Disposition Disposition: Home, Self Care
[2024-06-02 11:01] VITALS: BP 150/76; PULSE 64; RESP 18; TEMP 36.6; O2SAT 99; BMI 24.0
[2024-06-02] MEDS: Morphine 4 MG/ML Syringe IM (11:02)
== END 2024-06-02 11:17 | disposition home or self-care (01) ==
PROVIDERS: Emergency Provider Emergency Medicine; Visit Provider Emergency Medicine
DX: M51.362 Other intervertebral disc degeneration, lumbar region with discogenic back pain and lower extremity pain (principal); I10 Essential (primary) hypertension; G47.33 Obstructive sleep apnea (adult) (pediatric); Z79.899 Other long term (current) drug therapy; Z87.891 Personal history of nicotine dependence
CPT/HCPCS: 96372; 99282

== ENCOUNTER 2024-06-02 15:09 | Emergency (ER) | payer BC, SELFPAY ==
[2024-06-02 15:10] VITALS: BP 172/107; PULSE 96; RESP 16; TEMP 36.5; O2SAT 100; BMI 26.9
--- NOTE | 2024-06-02 15:15 | ED.RN ---
PT BROUGHT BACK FROM TRIAGE IN A WHEELCHAIR. PT BREATHING AT 35 BREATHS PER MINUTE AND EXPLAIN BACK PAIN AND RIGHT LEG PAIN. PT PLACED ON THE MONITOR.
[2024-06-02] MEDS: Ketorolac 15 MG/ML Vial IV (15:48)
[2024-06-02] MEDS: diazePAM 2 MG Tablet PO ×2 (15:48→16:49)
--- NOTE | 2024-06-02 15:50 | RAD_ITS ---
STUDY: X-RAY - LUMBAR SPINE REASON FOR EXAM: Male, 38 years old. back pain radating to right leg TECHNIQUE: AP and lateral view(s) of the lumbar spine were obtained. COMPARISON: CT lumbar spine September 13, 2021 FINDINGS: Normal lumbar lordosis. There is mild levo scoliosis. There is a normal alignment of the vertebrae. Mild chronic wedging of superior endplates of T12 and L1. No acute fracture or subluxation. Normal disc space heights. The soft tissue structures are unremarkable. No significant change since prior exam given inherent differences in imaging modality RAD/Lumbar Spine 2 or 3 Views IMPRESSION: Chronic wedging superior endplates of T12 and L1. No acute fracture or other significant bony pathology Electronically Signed: Keith Daniel MD at 16:17 EST ,
--- NOTE | 2024-06-02 15:57 | EX.ED.DYSGE1 ---
HPI History of Present Illness Chief Complaint: Lower Extremity Injury Narrative Narrative: Patient is a 38-year-old male with a past medical history of substance abuse, GERD, hypertension, degenerative disc disease, bipolar disorder who presents to the emergency department the chief complaint of right sided back pain that is radiating down his right leg. Patient states that he was here earlier today and was prescribed Vicodin he states that he also got a pain shot while he was here. He states that he picked up the prescription went home he states that he took 2 Vicodin he states that he has been in extreme pain since then. Patient denies any injuries or falls to exacerbate his symptoms. He states that he not bent over picking up heavy. Patient denies any history of IV drug use he states that he does smoke marijuana. Patient rates his pain a 10 out of 10. [facility] Medical History Hiatal hernia Benign essential HTN Substance abuse Chronic pain GERD (gastroesophageal reflux disease) Smoker Hypertension Migraines Degenerative disc disease Anemia Kidney stones Adrenal benign tumor Obstructive sleep apnea ADHD Bipolar disorder History of DVT (deep vein thrombosis) Home Medications ?Medication ?Instructions ?Recorded ?Last Taken ?Type gabapentin 300 mg capsule 300 mg PO BID PRN mood 04/08/20 Unknown History gabapentin 300 mg capsule 300 mg PO QHS mood 04/08/20 11/24/20 History calcium carb-ergocalciferol (vit 1 tab PO DAILY 11/10/22 Unknown History D2) 600 mg calcium-200 unit tablet diphenhydramine HCl 25 mg capsule 25 mg PO QHS PRN Sleep 11/10/22 Unknown History (Benadryl) fluoxetine 40 mg capsule 40 mg PO DAILY 11/10/22 Unknown History oxcarbazepine 600 mg tablet 600 mg PO BID 11/10/22 Unknown History (Trileptal) quetiapine 400 mg tablet,extended 200 mg PO BID 11/10/22 Unknown History release 24 hr acetaminophen 500 mg tablet 500 mg PRN pain 11/11/22 Unknown History dicyclomine 20 mg tablet 20 mg PO TID PRN abdominal pain 09/09/23 Unknown Rx #20 tabs metoclopramide HCl 5 mg tablet 5 mg PO Q6H #12 tabs 11/24/23 Unknown Rx (Reglan) cyclobenzaprine 5 mg tablet 5 mg PO TID PRN muscle spasm #14 06/02/24 Unknown Rx tabs hydrocodone-acetaminophen 5-325mg 1 tab PO Q6H PRN PRN Pain 3 days 06/02/24 Unknown Rx 5mg-325mg #10 TABLETS lidocaine 5 % topical patch 1 patch topical DAILY #15 ea 06/02/24 Unknown Rx (DermacinRx Lidocan) Allergy/AdvReac Type Severity Reaction Status Date / Time cinnamon Allergy Anaphylaxis Verified 06/02/24 15:16 codeine Allergy PT UNSURE Verified 06/02/24 15:16 OF REACTION NSAIDS (Non-Steroidal AdvReac Other Verified 06/02/24 15:16 Anti-Inflamma Surgical History History of repair of hiatal hernia History of gastric bypass History of total adrenalectomy History of colonoscopy History of esophagogastroduodenoscopy (EGD) H/O lithotripsy Hx of tonsillectomy Social History Smoking Status: Former smoker substance use type: does not use ROS ROS ED ROS Narrative Constitutional: Denies any fevers, chills, headaches, lightness, dizziness Eyes: Denies change in vision double vision blurry vision Cardiovascular: Denies chest pain Respiratory: Denies shortness of breath Abdomen: Denies abdominal pain nausea vomit diarrhea, denies any difficulty with bowel movements : Denies urinary symptoms, denies any difficulty urinating Neurological: Complains of right-sided back pain rating to his right leg as noted above denies any other numbness or tingling Musculoskeletal: Complains back pain as noted above Skin: Denies any rashes or lesions EXAM Physical Exam Narrative Exam Narrative: General: Patient lying in bed did appear to be uncomfortable secondary to his back pain Head: Atraumatic, normocephalic Eyes: PERRL bilateral, EOMI bilateral, no conjunctival injection noted Neck: Soft, supple, trachea midline Cardiovascular: Regular rate and rhythm no murmurs gallops rubs noted Respiratory: Clear to auscultation bilaterally no rales rhonchi or wheeze noted Abdomen: No tenderness palpation Extremities: +5/5 strength noted in the left lower extremity, +4/5 strength noted in the right lower extremity secondary to pain, DP pulses +2/4 in the bilateral lower extremities, no pedal edema no exam, +5/5 strength noted in the bilateral upper extremities Neurological: Patient following commands knew that he was at [facility] years 2023. Sensation grossly intact, no saddle anesthesia noted Skin: Warm, dry, intact no rashes or lesions noted Const Vital Signs: 06/02/24 15:10 06/02/24 17:09 Temperature 97.7 F L Temperature Source Oral Pulse Rate 96 56 L Respiratory Rate 16 16 Blood Pressure 172/107 H 135/90 H Blood Pressure Mean 128 105 Pulse Ox 100 98 Oxygen Delivery Method Room Air Room Air MDM MDM MDM Narrative Medical decision making narrative: Patient is a 38-year-old male who presented to the emergency department with a chief complaint of back pain. Patient will have a workup performed here on the differential diagnose includes but not limited to musculoskeletal strain, sciatica, herniated disc, compression fracture. Once workup is obtained reviewed he will be reevaluated. Patient will be given Toradol and Valium. Patient's x-ray reviewed here in the emergency department by myself and by radiology which showed chronic wedging of the superior endplates of T12 and L1 no acute fractures or other significant bony pathology. On reevaluation the patient he is feeling better he would like to go home. Patient once again was prescribed Vicodin earlier. Will send Lidoderm patches and Flexeril to his pharmacy. He was also encouraged to rotate Tylenol and ibuprofen [id number]. He is advised to take it easy for the next 2 to 3 days and then advance activity as tolerated with refrain from picking up anything heavy. He is advised to return with worsening symptoms or other concerns. He is encouraged to follow-up with his primary care physician as well. All question concerns answered he is discharged home in stable condition. Radiography Diagnostic Testing: Clinical Impression(s) from Imaging Studies Lumbar Spine X-Ray 06/02/24 15:50 IMPRESSION: Chronic wedging superior endplates of T12 and L1. No acute fracture or other significant bony pathology Electronically Signed: Keith Daniel MD at 16:17 EST Reading Location ID and State: [facility] / [place] Tel , Service support , Discharge Plan Triage Chief Complaint: Lower Extremity Injury ED Provider: Ron Cazares Dx/Rx/DC Orders Clinical Impression: Back pain Prescriptions: New lidocaine [DermacinRx Lidocan] 5 % adhesive patch,medicated 1 patch topical DAILY Qty: 15 0RF Rx Instructions: leave on most painful area for up to 12 hrs cyclobenzaprine 5 mg tablet 5 mg PO TID PRN (Reason: muscle spasm) Qty: 14 0RF No Action gabapentin 300 MG capsule 300 mg PO QHS gabapentin 300 MG capsule 300 mg PO BID PRN (Reason: mood) oxcarbazepine [Trileptal] 600 mg Tablet 600 mg PO BID Patient Comments: 300mg in the AM and 900mg at HS quetiapine 400 mg tablet extended release 24 hr 200 mg PO BID Patient Comments: TAKE 1 TABLET BY MOUTH AT BEDTIME fluoxetine 40 mg capsule 40 mg PO DAILY diphenhydramine HCl [Benadryl] 25 mg Capsule 25 mg PO QHS PRN (Reason: Sleep) Calcium + Vitamin D 600 mg calcium- 200 unit Tablet 1 tab PO DAILY acetaminophen 500 mg tablet 500 mg PRN (Reason: pain) Patient Comments: TAKE 2 TABLETS BY MOUTH EVERY 6 HOURS FOR 7 DAYS . START AFTER SURGERY dicyclomine 20 mg tablet 20 mg PO TID PRN (Reason: abdominal pain) Qty: 20 0RF metoclopramide HCl [Reglan] 5 mg tablet 5 mg PO Q6H Qty: 12 0RF hydrocodone-acetaminophen 5-325 mg tablet 1 tab PO Q6H PRN PRN (Reason: Pain) 3 Days Qty: 10 0RF Primary Care Provider: Care Physician,No Primary Referrals: Care Physician,No Primary [Primary Care Provider] - Activity Restrictions/Additional Instructions: Take Tylenol and ibuprofen [id number] for pain control. Use the Vicodin that you were prescribed earlier for severe pain. He has muscle relaxers as well as prescribed. Do not operate anything under the influence of these medications. Use the Lidoderm patches as prescribed. Follow with your primary care physician and return here for worsening symptoms or other concerns. Print Language: Upper Sorbian Disposition Disposition: Home, Self Care
[2024-06-02 17:09] VITALS: BP 135/90; PULSE 56; RESP 16; O2SAT 98
[2024-06-02 17:50] VITALS: BP 132/89; PULSE 55; RESP 16; TEMP 36.7; O2SAT 98
== END 2024-06-02 18:10 | disposition home or self-care (01) ==
PROVIDERS: Emergency Provider Emergency Medicine; Visit Provider Emergency Medicine
DX: M48.55XA Collapsed vertebra, not elsewhere classified, thoracolumbar region, initial encounter for fracture (principal); F31.9 Bipolar disorder, unspecified; I10 Essential (primary) hypertension; K21.9 Gastro-esophageal reflux disease without esophagitis; G47.33 Obstructive sleep apnea (adult) (pediatric); Z79.899 Other long term (current) drug therapy; Z87.891 Personal history of nicotine dependence
CPT/HCPCS: 72100; 96374; 99283; A4216

== ENCOUNTER 2025-01-04 19:32 | Emergency (ER) | payer OTHER, SELFPAY ==
[2025-01-04 19:32] VITALS: BP 178/115; PULSE 55; RESP 16; TEMP 35.8; O2SAT 98; BMI 31.6
--- NOTE | 2025-01-04 19:36 | EKG12_ITS ---
Test Reason : CP Blood Pressure : */* mmHG Vent. Rate : 65 BPM Atrial Rate : 65 BPM P-R Int : 166 ms QRS Dur : 92 ms QT Int : 414 ms P-R-T Axes : 44 7 50 degrees QTcB Int : 430 ms Normal sinus rhythm Normal ECG Confirmed by AURORA BOWLING, LISET ([id number]), photo editor RONALD BALLESTEROS ([id number]) on 01/05/2025 11:17:47 AM Referred By: ES Confirmed By: LISET SIMON MD
--- NOTE | 2025-01-04 20:25 | RAD_ITS ---
PROCEDURE: CHEST 1 VIEW (PORTABLE) 01/04/2025 REASON FOR EXAM: CHEST PAIN TECHNIQUE: Frontal view of the chest. COMPARISON: 11/10/2022 FINDINGS: No focal consolidation. No pleural effusion or pneumothorax. Cardiac silhouette is within normal limits. RAD/Chest 1 View (Portable) IMPRESSION: No focal consolidations. Reading Location: [id number]
[2025-01-04 20:32] VITALS: BP 147/93; PULSE 53; RESP 15; O2SAT 100
[2025-01-04 21:00] VITALS: BP 145/107; PULSE 51; RESP 17; O2SAT 100
--- NOTE | 2025-01-04 21:05 | EDS_ITS ---
HPI History of Present Illness Chief Complaint: Chest Pain Informant: patient Onset/Context/Timing Onset: Today Activity at onset: sudden Timing: Continuous Quality: Positive for Sharp and Stabbing Location: Left Chest Worsened By: Breathing (Deep breathing) Relieved By: Nothing Associated Symptoms: Positive for Lightheadedness and Palpitations; Negative for Nausea, Vomiting, Diaphoresis, Dyspnea, Cough, Fever or Acid Reflux Narrative Narrative: Patient presents with chest pain that began yesterday. Patient states it went away last evening. Patient states that started again this morning when he woke up. Patient states it has been constant all day. Patient describes it as sharp and stabbing. Patient states it is over the left side of his chest. Patient states it is worse with deep breathing. Patient states nothing makes it better. Patient admits to some lightheadedness and palpitations. Patient denies any nausea or vomiting. Patient denies any fevers or chills. Patient denies any shortness of breath or cough. CVD Risk Factors: Positive for Family History 1' </=55; Negative for Hypertension, Diabetes, Hypercholesterolemia or Smoking PE Risk Factors: Positive for Prior DVT or PE; Negative for Recent Travel/Surgery, Recent Immobilization, Cancer or OCP + Smoking + >/=35 PFSH PFSH Medical History Hiatal hernia Benign essential HTN Substance abuse Chronic pain GERD (gastroesophageal reflux disease) Smoker Hypertension Migraines Degenerative disc disease Anemia Kidney stones Adrenal benign tumor Obstructive sleep apnea ADHD Bipolar disorder History of DVT (deep vein thrombosis) Home Medications ?Medication ?Instructions ?Recorded ?Last Taken ?Type gabapentin 300 mg capsule 300 mg PO BID PRN mood 04/08 Unknown History gabapentin 300 mg capsule 300 mg PO QHS mood 04/08/20 11/24/20 History diphenhydramine HCl 25 mg capsule 25 mg PO QHS PRN Sle ep 11/10/22 Unknown History (Benadryl) fluoxetine 40 mg capsule 40 mg PO DAILY 11/10/22 Unkn own History oxcarbazepine 600 mg tablet 600 mg PO BID 11/10/22 Unk nown History (Trileptal) hydroxyzine HCl 25 mg tablet 25 mg PO BID PRN PRN anxi ety 01/04/25 Unknown History quetiapine 200 mg tablet 200 mg PO .AM 01/04/25 Unkno wn History quetiapine 300 mg tablet 300 mg PO QHS 01/04/25 Unkno wn History Allergy/AdvReac Type Severity Reaction Status Date / Time cinnamon Allergy Anaphylaxis Verified 01/04/25 19:33 codeine Allergy PT UNSURE Verified 01/04/25 19:33 OF REACTION NSAIDS (Non-Steroidal AdvReac Other Verified 01/04/25 19:33 Anti-Inflamma Surgical History History of repair of hiatal hernia History of gastric bypass History of total adrenalectomy History of colonoscopy History of esophagogastroduodenoscopy (EGD) H/O lithotripsy Hx of tonsillectomy Social History Smoking Status: Former smoker substance use type: does not use ROS ROS ED Constitutional Constitutional ED: Denies chills or fever(s) Eyes Eyes: Reports blurry vision; Denies diplopia ENT ENT ED: Denies rhinorrhea or sore throat Cardiovascular Cardiovascular: Reports chest pain; Denies palpitations Respiratory/Chest Respiratory/Chest: Denies cough or dyspnea Gastrointestinal Gastrointestinal: Denies nausea or vomiting Genitourinary Genitourinary ED: Denies dysuria or hematuria Musculoskeletal Musculoskeletal: Reports neck pain; Denies back pain Integumentary Denies abscess or rash Neurologic Neurologic: Denies headache(s) or weakness Allergic/Immunologic Allergic/Immunologic ED: Denies mouth swelling or urticaria EXAM Physical Exam Const Vital Signs: 01/04/25 19:32 01/04/25 19:44 01/04/25 19:44 Temperature 96.4 F L Temperature Source Oral Pulse Rate 55 L Respiratory Rate 16 Respiratory Effort Normal Non-Labored Blood Pressure 178/115 H Blood Pressure Mean 136 Pulse Ox 98 Oxygen Delivery Method Room Air 01/04/25 20:32 01/04/25 21:00 01/04/25 21:32 Temperature Temperature Source Pulse Rate 53 L 51 L 59 L Respiratory Rate 15 17 Respiratory Effort Blood Pressure 147/93 H 145/107 H 137/85 H Blood Pressure Mean 111 119 Pulse Ox 100 100 Oxygen Delivery Method Room Air Room Air 01/04/25 22:00 01/04/25 22:31 Temperature 96.4 F L Temperature Source Pulse Rate 50 L 61 Respiratory Rate 16 Respiratory Effort Blood Pressure 141/81 H 148/89 H Blood Pressure Mean 101 108 Pulse Ox 99 99 Oxygen Delivery Method Room Air Positive well nourished and well developed General Appearance ED: well developed and NAD HEENT Reports moist mucous membranes Neck supple and no JVD Chest Wall Chest Narrative: There is tenderness to palpation of the left anterior chest. There is no bony crepitus or step-off. There is no subcutaneous emphysema palpated. Resp normal respiratory effort and clear to auscultation bilaterally Cardio regular rate and regular rhythm GI soft to palpation, non-tender and non-distended Neuro oriented x3, CN's II-XII intact bilaterally and no sensory deficits noted Sensorium / Orientation: awake and alert Motor Exam: strength 5/5 throughout Psych mental status grossly normal Heart Score History: Slightly/Non-Suspicious ECG: Normal Age: </= 45 years Risk Factors: 1 or 2 Risk Factors Troponin: </= Normal Limit Score: 1 MDM MDM MDM Narrative Medical decision making narrative: Differential diagnosis includes cardiac dysrhythmia, cardiac ischemia, pneumonia, bronchitis, electrolyte abnormality, pulmonary embolism, and anxiety. EKG will be obtained to assess for cardiac dysrhythmia and cardiac ischemia. Chest x-ray will be obtained to assess for pneumonia and bronchitis. CBC will be obtained to assess for leukocytosis and anemia. Basic metabolic profile will be obtained to assess for electrolyte abnormality and renal function. High- sensitivity troponin will be obtained to assess for cardiac ischemia. 2-hour repeat high-sensitivity troponin will be obtained to assess for ongoing cardiac ischemia. D-dimer will be obtained to assess for pulmonary embolism. Lab Data Attestation: I reviewed the patient's lab results. Lab results narrative: CBC was reviewed. There is a mild anemia with a hemoglobin of 12.7 and hematocrit of 36.7. Basic metabolic profile was reviewed and was within normal limits. Initial high-sensitivity troponin was reviewed and was less than 6. 2- hour repeat high-sensitivity troponin was reviewed and was less than 6. D-dimer was reviewed and was less than 0.27. Labs: Laboratory Results - last 24 hr 01/04/25 01/04/25 01/04/25 19:55 19:55 21:15 WBC Cancelled 7.3 Corrected WBC Cancelled RBC Cancelled 4.34 L Hgb Cancelled 12.7 L Hct Cancelled 36.7 L MCV Cancelled 84.6 MCH Cancelled 29.3 MCHC Cancelled 34.6 RDW Std Deviation Cancelled 36.7 RDW Coeff of Michael Cancelled 12.0 Plt Count Cancelled 220 MPV Cancelled 9.8 Immature Gran % (Auto) Cancelled 0.400 Neut % (Auto) Cancelled 54.2 Lymph % (Auto) Cancelled 33.8 Swisher % (Auto) Cancelled 8.6 Eos % (Auto) Cancelled 2.2 Baso % (Auto) Cancelled 0.8 Absolute Neuts (auto) Cancelled 4.0 Absolute Lymphs (auto) Cancelled 2.48 Total Counted Cancelled Neutrophils % (Manual) Cancelled Band Neutrophils % Cancelled Lymphocytes % (Manual) Cancelled Monocytes % (Manual) Cancelled Eosinophils % (Manual) Cancelled Basophils % (Manual) Cancelled Metamyelocytes % Cancelled Myelocytes % Cancelled Promyelocytes % Cancelled Blast Cells % Cancelled Plasma Cell % (Manual) Cancelled Other Cells % Cancelled Nucleated RBC % Cancelled 0 Nucleated RBCs/100 WBC Cancelled Differential Comment Cancelled Diff Path Review Cancelled Hypersegmented Neuts Cancelled Atypical Lymphocytes Cancelled Reactive Lymphocytes Cancelled Smudge Cells Cancelled Toxic Granulation Cancelled Toxic Vacuolation Cancelled Dohle Bodies Cancelled Esdras Rods Cancelled Platelet Estimate Cancelled Plt Morphology Comment Cancelled RBC Morphology Cancelled Cancelled Polychromasia Cancelled Hypochromasia Cancelled Basophilic Stippling Cancelled Anisocytosis Cancelled Microcytosis Cancelled Macrocytosis Cancelled Spherocytes Cancelled Sickle Cells Cancelled Target Cells Cancelled Tear Drop Cells Cancelled Ovalocytes Cancelled Stomatocytes Cancelled [place] Bodies Cancelled Devante Cells Cancelled Bite Cells Cancelled Crenated Cell Cancelled Acanthocytes (Spur) Cancelled Rouleaux Cancelled Schistocytes Cancelled D-Dimer Quant (PE/DVT) Sodium 139 Potassium 4.6 Chloride 106 Carbon Dioxide 20.2 L Anion Gap 13 BUN 11 Creatinine 0.90 Estim Creat Clear Calc 133.23 Est GFR (MDRD) Non-Af 111 BUN/Creatinine Ratio 11.8 Glucose 88 Calcium 9.3 Troponin T High Sens < 6 Troponin T Hi Sens 2 Hr 01/04/25 21:40 WBC Corrected WBC RBC Hgb Hct MCV MCH MCHC RDW Std Deviation RDW Coeff of Michael Plt Count MPV Immature Gran % (Auto) Neut % (Auto) Lymph % (Auto) Swisher % (Auto) Eos % (Auto) Baso % (Auto) Absolute Neuts (auto) Absolute Lymphs (auto) Total Counted Neutrophils % (Manual) Band Neutrophils % Lymphocytes % (Manual) Monocytes % (Manual) Eosinophils % (Manual) Basophils % (Manual) Metamyelocytes % Myelocytes % Promyelocytes % Blast Cells % Plasma Cell % (Manual) Other Cells % Nucleated RBC % Nucleated RBCs/100 WBC Differential Comment Diff Path Review Hypersegmented Neuts Atypical Lymphocytes Reactive Lymphocytes Smudge Cells Toxic Granulation Toxic Vacuolation Dohle Bodies Esdras Rods Platelet Estimate Plt Morphology Comment RBC Morphology Polychromasia Hypochromasia Basophilic Stippling Anisocytosis Microcytosis Macrocytosis Spherocytes Sickle Cells Target Cells Tear Drop Cells Ovalocytes Stomatocytes [place] Bodies Devante Cells Bite Cells Crenated Cell Acanthocytes (Spur) Rouleaux Schistocytes D-Dimer Quant (PE/DVT) < 0.27 L Sodium Potassium Chloride Carbon Dioxide Anion Gap BUN Creatinine Estim Creat Clear Calc Est GFR (MDRD) Non-Af BUN/Creatinine Ratio Glucose Calcium Troponin T High Sens Troponin T Hi Sens 2 Hr < 6 Radiography Chest X-Ray - ED: 1 View, Read by ED Physician, Read by Radiologist and No Acute Disease Diagnostic Testing: Clinical Impression(s) from Imaging Studies Chest X-Ray 01/04/25 20:25 IMPRESSION: No focal consolidations. Reading Location: [facility] Portable 1 view chest x-ray was obtained. On my independent interpretation, lung ng are clear. There is normal cardiac silhouette. Bony thorax is nor mal. There is no acute process noted. Radiologist also interpreted the x-ray and agrees. EKG Initial EKG: Attestation: I personally reviewed and interpreted this EKG as follows: Interpretation: Sinus Rhythm (65) and No Acute Injury Pattern Comments: EKG was obtained. On my independent interpretation, it showed a normal sinus rhythm with a rate of 65. MS interval, QRS interval, and QTc intervals were all normal. [place] was normal. There are no acute ST or T wave changes. Prior EKG tracings: available for review Prior: Unchanged (01/25/2022) Treatment and Re-Evaluation :: Patient was not given aspirin due to his prior surgery for gastric bypass. Patient was ordered sublingual nitroglycerin. Patient has a HEART score of 1. Patient was advised that this is low risk for acute cardiac event. Patient was instructed to follow-up with his primary care physician in 5 to 7 days for further evaluation. Patient understood and was agreeable with the plan. All questions were answered. Discharge Plan Triage Chief Complaint: Chest Pain ED Provider: Tyler Gomez Dx/Rx/DC Orders Clinical Impression: Chest pain, Benign essential HTN Instructions: ED Chest Pain, Uncertain Cause Prescriptions: No Action gabapentin 300 MG capsule 300 mg PO QHS gabapentin 300 MG capsule 300 mg PO BID PRN (Reason: mood) oxcarbazepine [Trileptal] 600 mg Tablet 600 mg PO BID Patient Comments: 300mg in the AM and 900mg at HS fluoxetine 40 mg capsule 40 mg PO DAILY diphenhydramine HCl [Benadryl] 25 mg Capsule 25 mg PO QHS PRN (Reason: Sleep) quetiapine 200 mg tablet 200 mg PO .AM hydroxyzine HCl 25 mg tablet 25 mg PO BID PRN PRN (Reason: anxiety) quetiapine 300 mg tablet 300 mg PO QHS Primary Care Provider: Care Physician,No Primary Referrals: Jame Woodward MD [Med Staff - Relationship Counselor] - 5-7 Days Care Physician,No Primary [Primary Care Provider] - Print Language: Dominican Disposition Disposition: Home, Self Care Discharge Date/Time: 01/04/25 22:35
[2025-01-04 21:16] LABS: Anion Gap 13 (5-15); BUN 11 mg/dL (4-19); BUN/Creat Ratio 11.8 RATIO (10-20); Calcium,Total 9.3 mg/dL (7.6-11.0); Carbon Dioxide 20.2 mmol/L (21.0-32.0); Chloride 106 mmol/L (98-108); EST Glomerular Filtration Rate 111 (>60); Estimated Creatinine Clearance 133.23 ml/min (50-250); Glucose 88 mg/dL (70-99); Potassium 4.6 mmol/L (3.3-5.1); Sodium Level 139 mmol/L (133-145); Troponin T High Sensitivity < 6 ng/L (<=22)
[2025-01-04 21:32] VITALS: BP 137/85; PULSE 59
[2025-01-04] MEDS: Nitroglycerin SL (ED/IMG/CATH) 0.4 MG TABLET SL (21:32)
[2025-01-04 21:34] LABS: Absolute Lymphocyte Count 2.48 X10^3/uL (0.83-4.51); Basophil# 0.06 X10^3/uL; Basophil% 0.8 % (0-1); Eosinophil# 0.16 X10^3/uL; Eosinophils% 2.2 % (0-5); Hematocrit 36.7 % (40-54); Hemoglobin 12.7 g/dL (13.0-16.5); Lymphocyte # 2.48 X10^3/ul (0.83-4.51); Lymphocyte % 33.8 % (19-41); Mean Corp Hgb Conc 34.6 g/dL (32-36); Mean Corpuscular Hgb 29.3 pg (27.0-32.0); Mean Corpuscular Volume 84.6 fL (80-94); Mean Platelet Vol. 9.8 fl (6.2-12.0); Monocyte# 0.63 X10^3/uL; Monocyte% 8.6 % (0-10); NRBC Flagged by Analyzer 0 % (0-5); Neutrophil # 3.97 X10^3/uL (2.7-7.7); Neutrophil % 54.2 % (47-70); Platelet Count 220 K/mm3 (150-450); RBC Distribution Width SD 36.7 fl (35.1-43.9); Red Blood Count 4.34 M/mm3 (4.6-6.2); White Blood Count 7.3 K/mm3 (4.4-11.0)
[2025-01-04 22:00] VITALS: BP 141/81; PULSE 50; O2SAT 99
[2025-01-04 22:15] LABS: D-Dimer Quantitative (DVT/PE) < 0.27 FEU/ug/m (0.27-0.49)
[2025-01-04 22:18] LABS: Troponin T High Sens 2 HR < 6 ng/L (<=22)
[2025-01-04 22:31] VITALS: BP 148/89; PULSE 61; RESP 16; TEMP 35.8; O2SAT 99
== END 2025-01-04 22:35 | disposition home or self-care (01) ==
PROVIDERS: Emergency Provider Emergency Medicine; Visit Provider Emergency Medicine
DX: R07.9 Chest pain, unspecified (principal); Z87.891 Personal history of nicotine dependence; R00.2 Palpitations; I10 Essential (primary) hypertension; R42 Dizziness and giddiness; K21.9 Gastro-esophageal reflux disease without esophagitis; Z79.899 Other long term (current) drug therapy; D64.9 Anemia, unspecified; Z98.84 Bariatric surgery status
CPT/HCPCS: 71045; 80048; 84484; 85025; 85379; 93005; 99283

== ENCOUNTER 2025-06-17 16:23 | Emergency (ER) | payer OTHER, SELFPAY ==
[2025-06-17 16:24] VITALS: BP 121/71; PULSE 69; RESP 22; TEMP 36.1; O2SAT 97; BMI 29.3
--- NOTE | 2025-06-17 16:36 | EDS_ITS ---
HPI History of Present Illness Chief Complaint: Back Informant: patient Onset/Context/Timing Onset: Days (4) Context: Sudden Onset Timing: Continuous Quality: Aching, Burning and - (Cramping) Location: Lumbar and Left Leg Worsened by: improves with Movement Relieved by: Nothing Associated Symptoms Associated Symptoms: Tingling and Radiation to Left Leg; Negative for Numbness, Radiation to Right Leg, Fever, Abdominal Pain, Dysuria, Unable to Ambulate, Unable to Transfer, Urinary Retention, Urinary Incontinence, Constipation or Fecal Incontinence Narrative Narrative: Patient presents with back pain that has been constant for the past 4 days. Patient states he woke up Saturday morning and noted pain in his lower lumbar area. Patient states it has been constant. Patient denies any trauma or injury. Patient describes the pain as aching and burning and cramping. Patient states it is worse with any movement. Patient states it is also worse with sitting, standing, and laying flat. Patient states nothing seems to help with it. Patient admits to some tingling in his left leg. Patient states the pain radiates down his left leg. Patient denies any abdominal pain. Patient denies any bowel or bladder changes. Patient denies any saddle anesthesia. [facility] Medical History Hiatal hernia Benign essential HTN Substance abuse Chronic pain GERD (gastroesophageal reflux disease) Smoker Hypertension Migraines Degenerative disc disease Anemia Kidney stones Adrenal benign tumor Obstructive sleep apnea ADHD Bipolar disorder History of DVT (deep vein thrombosis) Home Medications ?Medication ?Instructions ?Recorded ?Last Taken ?Type gabapentin 300 mg capsule 300 mg PO BID PRN mood 04/08 Unknown History gabapentin 300 mg capsule 300 mg PO QHS mood 04/08/20 11/24/20 History diphenhydramine HCl 25 mg capsule 25 mg PO QHS PRN Sle ep 11/10/22 Unknown History (Benadryl) fluoxetine 40 mg capsule 40 mg PO DAILY 11/10/22 Unkn own History oxcarbazepine 600 mg tablet 600 mg PO BID 11/10/22 Unk nown History (Trileptal) hydroxyzine HCl 25 mg tablet 25 mg PO BID PRN PRN anxi ety 01/04/25 Unknown History quetiapine 200 mg tablet 200 mg PO .AM 01/04/25 Unkno wn History quetiapine 300 mg tablet 300 mg PO QHS 01/04/25 Unkno wn History cyclobenzaprine 10 mg tablet 10 mg PO QHS PRN PRN Musc le Spasm 06/17/25 Unknown Rx #10 TABLETS hydrocodone-acetaminophen 5-325mg 1 tab PO Q6H PRN PRN Pain 3 days 06/17/25 Unknown Rx 5mg-325mg #10 TABLETS Allergy/AdvReac Type Severity Reaction Status Date / Time cinnamon Allergy Anaphylaxis Verified 06/17/25 16:25 codeine Allergy PT UNSURE Verified 06/17/25 16:25 OF REACTION NSAIDS (Non-Steroidal AdvReac Other Verified 06/17/25 16:25 Anti-Inflamma Surgical History History of repair of hiatal hernia History of gastric bypass History of total adrenalectomy History of colonoscopy History of esophagogastroduodenoscopy (EGD) H/O lithotripsy Hx of tonsillectomy Social History Smoking Status: Former smoker substance use type: does not use ROS ROS ED Constitutional Constitutional ED: Denies chills or fever(s) Eyes Eyes: Denies blurry vision or change in vision ENT ENT ED: Denies rhinorrhea or sore throat Cardiovascular Cardiovascular: Denies chest pain or palpitations Respiratory/Chest Respiratory/Chest: Denies cough or dyspnea Gastrointestinal Gastrointestinal: Denies nausea or vomiting Genitourinary Genitourinary ED: Denies dysuria or hematuria Musculoskeletal Musculoskeletal: Reports back pain; Denies neck pain Integumentary Denies abscess or rash Neurologic Neurologic: Denies headache(s) or weakness Allergic/Immunologic Allergic/Immunologic ED: Denies mouth swelling or urticaria EXAM Physical Exam Const Vital Signs: 06/17/25 16:24 06/17/25 16:52 06/17/25 17:41 Temperature 97 F L Temperature Source Temporal Pulse Rate 69 60 56 L Respiratory Rate 22 H 20 H Blood Pressure 121/71 H 125/85 H 113/72 Blood Pressure Mean 87 98 85 Pulse Ox 97 99 98 Oxygen Delivery Method Room Air Room Air Positive well nourished and well developed Constitutional Narrative: BMI is 29.4. General Appearance ED: well developed and NAD HEENT Reports moist mucous membranes Neck supple and no JVD Resp normal respiratory effort and clear to auscultation bilaterally Cardio regular rate and regular rhythm GI soft to palpation, non-tender and non-distended Back/Spine Back/Spine Narrative: There is tenderness over the lower lumbar spine and left lumbar paraspinal muscles. There is no bony crepitance or step-off. Range of motion was limited in all motions of the lumbar spine secondary to pain. Strength is 5/5 bilaterally in the lower extremities. There are no sensory deficits noted. Deep tendon reflexes are 2/4 bilaterally in the lower extremities. Lumbar Spine / Lower Back: ROM limited and straight leg raise negative bilaterally Extremity normal to inspection General Extremety ED: Negative for edema or tenderness General Extremity: Negative for edema Neuro oriented x3 and no sensory deficits noted Sensorium / Orientation: alert Motor Exam: strength 5/5 throughout Deep Tendon Reflexes: Rt Patellar (L4): 2+, Lt Patellar (L4): 2+, Rt Ankle (S1): 2+ and Lt Ankle (S1): 2+ Deep Tendon Reflexes Back: Rt Patellar (L4): 2+, Lt Patellar (L4): 2+, Rt Ankle (S1): 2+ and Lt Ankle (S1): 2+ MDM MDM MDM Narrative Medical decision making narrative: Differential diagnosis includes lumbar compression fracture, spondylolisthesis, lumbosacral strain, and arthritis. X-rays of the lumbar spine will be obtained to assess for spondylolisthesis, fracture, and degenerative arthritis. Radiography X-Ray: LS SPine, Read by ED Physician, Read by Radiologist and DJD Diagnostic Testing: Clinical Impression(s) from Imaging Studies Lumbar Spine X-Ray 06/17/25 17:00 IMPRESSION: No evidence of acute fracture or subluxation. Mild spondylotic changes with slight lumbar levoscoliosis. Reading Location: [facility] X-rays of the lumbar spine were obtained. There are 3 views. On my independent interpretation, there are some degenerative changes noted. There is no acute fracture or spondylolisthesis. There is mild scoliosis noted. Radiologist also interpreted the x-rays and agrees. Treatment and Re-Evaluation Narrative: Patient was given injection of morphine and Norflex. Patient was feeling somewhat better on reevaluation. Patient was advised of his findings. Patient was given a prescription for a short course of [place]. Patient was also given a prescription for a short course of Flexeril. Patient was instructed to follow- up with his primary care physician in 3 to 5 days. Patient was instructed to return if worse in any way. Patient understood and was agreeable with the plan. All questions were answered. Discharge Plan Triage Chief Complaint: Back ED Provider: Tyler Gomez Dx/Rx/DC Orders Clinical Impression: Acute low back pain with left-sided sciatica, Benign essential HTN Instructions: ED Back Sprain/Strain, ED Sciatica Prescriptions: New cyclobenzaprine 10 mg tablet 10 mg PO QHS PRN PRN (Reason: Muscle Spasm) Qty: 10 0RF hydrocodone-acetaminophen 5-325 mg tablet 1 tab PO Q6H PRN PRN (Reason: Pain) 3 Days Qty: 10 0RF No Action gabapentin 300 MG capsule 300 mg PO QHS gabapentin 300 MG capsule 300 mg PO BID PRN (Reason: mood) oxcarbazepine [Trileptal] 600 mg Tablet 600 mg PO BID Patient Comments: 300mg in the AM and 900mg at HS fluoxetine 40 mg capsule 40 mg PO DAILY diphenhydramine HCl [Benadryl] 25 mg Capsule 25 mg PO QHS PRN (Reason: Sleep) quetiapine 200 mg tablet 200 mg PO .AM hydroxyzine HCl 25 mg tablet 25 mg PO BID PRN PRN (Reason: anxiety) quetiapine 300 mg tablet 300 mg PO QHS Primary Care Provider: Care Physician,No Primary Referrals: Consuelo Fox MD [Med Staff - Manager Special Events, Family Practice] - 5-7 Days Care Physician,No Primary [Primary Care Provider, Medical] Print Language: Grenadian Disposition Disposition: Home, Self Care
[2025-06-17 16:52] VITALS: BP 125/85; PULSE 60; RESP 20; O2SAT 99
[2025-06-17] MEDS: Orphenadrine 60 MG/2 ML Ampul IM (16:54)
--- NOTE | 2025-06-17 17:00 | RAD_ITS ---
PROCEDURE: LUMBAR SPINE 2 OR 3 VIEWS 06/17/2025 REASON FOR EXAM: INJURY/PAIN TECHNIQUE: Procedure Code: RADSPLL Modality: DX Procedure: LUMBAR SPINE 2 OR 3 VIEWS COMPARISON: 06/02/2024 FINDINGS: No evidence of acute fracture or subluxation. Slight lumbar levoscoliotic curvature, otherwise alignment appears anatomic. Relatively well preserved disc spaces. Mild spondylotic changes primarily characterized by small anterior osteophytes and hypertrophic facet arthropathy. Unremarkable soft tissues. RAD/Lumbar Spine 2 or 3 Views IMPRESSION: No evidence of acute fracture or subluxation. Mild spondylotic changes with slight lumbar levoscoliosis. Reading Location: [id number]
[2025-06-17 17:41] VITALS: BP 113/72; PULSE 56; O2SAT 98
[2025-06-17 18:20] VITALS: BP 113/72; PULSE 56; RESP 20; TEMP 36.1; O2SAT 98
--- OUTSIDE RECORDS SUMMARY | 2025-06-17 18:41 | XMS RPT_ITS | CCD ---
Author Organization [facility] [place] Care Team Providers Care Materials Analyst Name Role Phone SriJae miranda Unavailable Unavailable Nicole Jae Unavailable Unavailable Altaqi, Basel Unavailable Unavailable Luis EnriqueMatt brown A Unavailable Unavailable Maryann Rankin Unavailable Unavailable PROVIDER, UNKNOWN Attending Unavailable PROVIDER, UNKNOWN Admitting Unavailable Chaitanya BOWLING, Mimi Perez Unavailable Eileen Monroe MD Primary Care Provide r Nicho Verdin MD Unavailable Miley Soni MD Unavailable Mimi Tavares MD Unavailable Eileen Monroe MD Primary Care Provide r Nicho Verdin MD Unavailable Miley Soni MD Unavailable Eileen Monroe MD Primary Care Provide r Mimi Tavares MD Unavailable Eileen Monroe MD Primary Care Provide r Nicho Verdin MD Unavailable [phone] Nae BOWLING, Miley Unavailable Rogelio West RN Unavailable Eileen Monroe MD Primary Care Provide r Dr. Radha Fierro Attending Provider Eileen Monroe MD Primary Care Provide r Lizett Chapman MD Primary Care Provider [phone] RUBY RAMIREZ Attending Unavailable MANAKTALA, PRITIKA S Referring Unavailable MANAKTALA, PRITIKA S Primary Care Unavailable MANAKTALA, PRITIKA S Referring Unavailable MANAKTALA, PRITIKA S Primary Care Unavailable JOY MCKEON Attending Unavailable KITA BEERS, EILEEN L Primary Care Unavail able GABRIELLE TANG Attending Unavailable NO FAMILY PHYSICIAN, 837 Primary Care Unavail able PREMA BOWLING, SOHAIL Attending Unavailable RORY BOWLING, LEA Attending Unavailable MANAKTALA, PRITIKA Primary Care Unavailable KITA-BEERS, EILEEN Primary Care Unavailab thais TRAMMELL MD, ENRICO Attending Unavailable VALERI BOWLING, ENRICO Attending Unavailable KITA-BEERS, EILEEN Primary Care Unavailab thais LLOYD MD, ATTANA Attending Unavailable MANAKTALA, PRITIKA Primary Care Unavailable Unavailable Primary Care Provider UnavailPAM Roa Attending Unavailable PAM SCHROEDER Admitting Unavailable NYLA GILLETTE Consulting Unavailable KITA BEERS, EILEEN L Primary Care Unavail able MANAKTALA, PRITIKA S Attending Unavailable KITA BEERS, EILEEN L Primary Care Unavail able PAM SCHROEDER Attending Unavailable KITA BEERS, EILEEN L Primary Care Unavail able MANAKTALA, PRITIKA S Attending Unavailable KITA BEERS, EILEEN L Primary Care Unavail able Care Physician, No Primary Primary Care Provider Unavailable Dr. Tyler Gomez DO Emergency Provider [phone] Tyler Gomez Attending Unavailable Care Physician, No Primary Primary Care Unava ilable Care Physician, No Primary Primary Care Unava ilable Ron Cazares Attending Unavailable Tyler Gomez Attending Unavailable Care Physician, No Primary Primary Care Unava ilable Allergies Allergy Classification Reported Allergen(s) Allergy Type Date of Onset Reaction(s) Facility (5 sources) Cinnamon Preparation; Translations: [CINNAMON] Drug Allergy 4 [facility] Repository (20 sources) Codeine; Translations: [CODEINE] Drug Allergy 6 Unknown, Other [facility] Repository Comment on above: Pt reports family hi story of codeine allergies, but does not want codeine at all. (20 sources) Cinnamon Preparation Drug Allergy 4 [facility] (2 sources) Nonsteroidal Anti-inflammator y Compounds Propensity to adverse reactions 4 Other [place] Comment on above: cannot take d/t hx o f gastric bypass (2 sources) NSAIDs; Translations: [NSAIDS (NON-STEROIDAL ANTI-INFLAMMATOR Y DRUG)] Propensity to adverse reactions to drug (disorder) 4 Unknown Hospitals 3 Repository (1 source) NSAIDs Drug allergy (disorder) 5 [place] Repository Medications Current Medications Medication Drug Class(es) Dates Sig (Normalized) Sig (Original) acetaminophen 325 mg / oxyCODONE hydrochloride 5 mg oral tablet (12 sources) Opioid Agonist Start: 11-12-2023 take 1 tablet by mouth every six hours as needed oxyCODONE-acetami nophen (PERCOCET) 5-325 mg tablet Take 1 tablet by mouth every 6 hours as needed for pain. 11/12/2023 Active aspirin 81 mg chewable tablet (2 sources) Platelet Aggregation Inhibitor, Nonsteroidal Anti-inflammatory Drug Start: 11-28-2020 take 81 mg by mouth once daily in the morning Aspirin Active 81 MG PO DAILY November 28, 2020 2:50pm Once daily at 8 AM. atorvastatin 40 mg oral tablet (2 sources) HMG-CoA Reductase Inhibitor Start: 11-28-2020 take 40 mg by mouth at bedtime Atorvastatin Active 40 MG PO AT BEDTIME November 28, 2020 2:33pm cefdinir 300 mg oral capsule (2 sources) Cephalosporin Antibacterial Start: 08-08-2021 take 300 mg by mouth twice daily Cefdinir Active 300 MG PO TWICE A DAY August 08, 2021 7:28pm cholecalciferol 1.25 mg oral capsule (20 sources) Vitamin D Start: 11-26-2022 End: 02-12-2023 take [id number] [IU] by mouth once daily cholecalciferol, Vitamin D3, (VITAMIN D3) 1,250 mcg (50,000 unit) cap capsule Indications: vitamin D deficiency Take 1 capsule by mouth one time a week for 12 doses. Transition to 2,000-4,000 units of Vitamin D OTC after completing 12 weeks 12 capsule 11/26/2022 Active Start: 11-27-2021 End: 10-29-2022 take [id number] [IU] by mouth once daily cholecalciferol, Vitamin D3, (VITAMIN D3) 1,250 mcg (50,000 unit) cap capsule Indications: vitamin D deficiency Take 1 capsule by mouth one time a week for 12 doses. Transition to 2,000-4,000 units of Vitamin D OTC after completing 12 weeks 12 capsule 0 11/27/2021 10/29/2022 Discontinued Comment on above: Take 1 capsule by mo uth one time a week for 12 doses. Transition to 2,000-4,000 units of Vitamin D OTC after completing 12 weeks diphenhydrAMINE hydrochloride 25 mg oral capsule (20 sources) Histamine-1 Receptor Antagonist Start: 12-20-2021 End: 06-18-2022 diphenhydrAMINE 50 mg injection (BENADRYL) Start: 11-28-2020 take 1 capsule by mo uth at bedtime as needed for sleep Diphenhydramine Hcl (Benadryl) 25 mg Capsule Active 25 mg PO AT BEDTIME as needed for Sleep November 10, 2022 12:00am Start: 11-25-2020 End: 11-28-2020 take 2 capsules by mouth at bedtime as needed for sleep Diphenhydramine Hcl (Benadryl) 25 mg Capsule Discontinued 50 mg PO AT BEDTIME as needed for Sleep November 25, 2020 12:00am November 28, 2020 2:40pm Comment on above: Take 25 mg by mouth at bedtime as needed. docusate sodium 100 mg oral capsule (2 sources) Start: End: take 1 capsule by mouth every twelve hours as needed for constipation and constipation docusate sodium (COLACE) 100 mg capsule Indications: Constipation, unspecified constipation type Take 1 capsule by mouth twice daily as needed for constipation. 60 capsule 0 01/30/2023 03/01/2023 Active Comment on above: Take 1 capsule by mo uth twice daily as needed for constipation. [id number] 0.3 ml EPINEPHrine 1 mg/ml auto-injector (20 sources) alpha-Adrenergic Agonist, beta-Adrenergic Agonist, Catecholamine Start: End: EPINEPHrine 0.3 mg injection (EPIPEN) ferrous sulfate 325 mg oral tablet (20 sources) Start: End: take 1 tablet by mouth once daily at bedtime ferrous sulfate 325 mg (65 mg iron) tablet Indications: Iron deficiency anemia, unspecified iron deficiency anemia type Take 1 tablet by mouth daily at bedtime. Do no take within two hours of calcium supplement 90 tablet 0 11/27/2021 03/23/2022 Active Comment on above: Take 1 tablet by [facility] daily at bedtime. Do no take within two hours of calcium supplement FLUoxetine 40 mg oral capsule (20 sources) Serotonin Reuptake Inhibitor Start: take 1 capsule by mouth once daily Fluoxetine 40 mg capsule Active 40 mg PO DAILY November 10, 2022 12:00am Start: 04-08-2020 take 40 mg by mouth at bedtime Fluoxetine Active 40 MG PO AT BEDTIME April 08, 2020 9:34am Comment on above: Take 1 capsule by [facility] once daily. gabapentin 300 mg oral capsule (20 sources) Anti-epileptic Agent Start: 04-08-2020 take 1 capsule by mouth at bedtime Gabapentin 300 MG capsule Active 300 mg PO AT BEDTIME April 08, 2020 12:00am Start: 04-08-2020 take 1 capsule by [facility] twice daily as needed Gabapentin 300 MG capsule Active 300 mg PO TWICE A DAY as needed for mood April 08, 2020 12:00am Comment on above: Take 1 capsule by [facility] three times daily for 30 days. hydrocortisone 100 mg injection (20 sources) Corticosteroid Start: End: hydrocortisone sodium succinate (PF) 100 mg injection (Solu-CORTEF) hydrOXYzine hydrochloride 25 mg oral tablet (14 sources) Antihistamine Start: take 1 tablet by mouth twice daily as needed for anxiety Hydroxyzine Hcl 25 mg tablet Active 25 mg PO TWICE DAILY NEEDED as needed for anxiety January 04, 2025 12:00am Start: 11-19-2023 End: 01-18-2024 take 1 tablet by mouth every eight hours as needed hydrOXYzine HCl (ATARAX) 25 mg tablet Take 1 tablet by mouth three times a day as needed for itching/rash. 90 tablet 1 11/19/2023 01/18/2024 Active Start: 03-12-2023 End: 09-12-2023 Hydroxyzine Pamoate 25 mg ca psule Discontinued 50 mg PO 3 TIMES DAILY NEEDED as needed for Anxiety March 12, 2023 12:00am September 12, 2023 9:36am Start: 03-12-2023 End: 09-12-2023 take 50 mg by mouth three times daily as needed Hydroxyzine Pamoate Discontinued 50 MG PO 3 TIMES DAILY NEEDED March 12, 2023 12:00am September 12, 2023 9:36am ibuprofen 600 mg oral tablet (4 sources) Nonsteroidal Anti-inflammatory Drug Start: 09-13-2021 take 600 mg by mouth four times daily Ibuprofen Active 600 MG PO 4 TIMES DAILY September 13, 2021 6:24pm Start: 11-25-2020 take 1 tablet by nanci th every eight hours Ibuprofen (Ibu) 600 mg tablet Active 600 MG PO Q8H November 25, 2020 2:18pm lisinopril 2.5 mg oral tablet (18 sources) Angiotensin Converting Enzyme Inhibitor Start: 11-28-2020 Lisinopril Active 5 MG PO DAILY 0 November 28, 2020 2:40pm Hold for systolic blood pressure less than 110 mmHg Start: 04-10-2020 End: 11-28-2020 Lisinopril 2.5 MG tablet Dis continued 2.5 mg PO DAILY November 25, 2020 2:24pm November 28, 2020 2:40pm Hold for systolic blood pressure less than 110 mmHg metoprolol tartrate 25 mg oral tablet (18 sources) beta-Adrenergic Serge Start: 11-28-2020 Metopr olol Tartrate Active 12.5 MG PO TWICE A DAY 0 November 28, 2020 2:40pm Hold for systolic blood pressure less than 90 or heart rate less than 60/min. Start: 04-10-2020 End: 11-28-2020 Metoprolol Tartrate 25 MG ta blet Discontinued 25 mg PO TWICE A DAY November 25, 2020 2:24pm November 28, 2020 2:40pm Hold for systolic blood pressure less than 90 or heart rate less than 60/min. Start: 04-10-2020 End: 11-25-2020 Metoprolol Tartrate Disconti nued 12 MG PO TWICE A DAY April 10, 2020 12:00am November 25, 2020 2:24pm Hold for systolic blood pressure less than 90 or heart rate less than 60/min. naproxen 500 mg oral tablet (2 sources) Nonsteroidal Anti-inflammatory Drug Start: 05-21-2021 take 1 tablet by mouth twice daily Naproxen (Naprosyn) 500 mg tablet Active 500 MG PO TWICE A DAY May 21, 2021 4:53pm ondansetron 4 mg oral tablet (8 sources) Serotonin-3 Receptor Antagonist Start: 11-08-2022 End: 11-18-2022 take 1 tablet by mouth every eight hours as needed ondansetron (ZOFRAN) 4 mg tablet Take 1 tablet by mouth every 8 hours as needed for up to 10 days. 30 tablet 0 11/08/2022 11/18/2022 Active Start: 11-16-2021 take 4 mg by mouth e very six hours as needed Ondansetron Active 4 MG PO EVERY 6 HOURS NEEDED November 16, 2021 11:32pm Start: 10-12-2020 take 4 mg by mouth e very eight hours as needed Ondansetron Active 4 MG PO EVERY 8 HOURS NEEDED October 12, 2020 11:26am Comment on above: Take 1 tablet by nanci th every 8 hours as needed for up to 10 days. OXcarbazepine 600 mg oral tablet (20 sources) Anti-epileptic Agent Start: 3 take 1 tablet by mouth twice daily Oxcarbazepine (Trileptal) 600 mg Tablet Active 600 mg PO TWICE A DAY November 10, 2022 12:00am Start: 01-23-2021 OXcarbazepine (TRILEPTAL) 600 mg tablet 300mg qam 900mg qpm 90 tablet 01/23/2021 Active Start: 04-08-2020 take 300 mg by mouth once maria e y Oxcarbazepine Active 300 MG PO DAILY April 08, 2020 9:34am Start: 04-08-2020 take 900 mg by mouth at bedtim e Oxcarbazepine Active 900 MG PO AT BEDTIME April 08, 2020 9:34am Comment on above: 300mg qam 900mg qpm pantoprazole 40 mg delayed release oral tablet (20 sources) Proton Pump Inhibitor Start: 4 End: 4 take 1 tablet by mouth twice daily pantoprazole DR (PROTONIX) 40 mg tablet Take 1 tablet by mouth two times a day. 60 tablet 1 09/26/2023 Active Start: 11-08-2022 End: 07-09-2023 take 1 tablet by mouth once daily pantoprazole DR (PROTONIX) 40 mg tablet Indications: S/P gastric bypass Take 1 tablet by mouth once daily. 180 tablet 0 01/10/2023 07/09/2023 Active Start: 04-25-2021 End: 03-30-2022 take 1 tablet by mouth once daily pantoprazole DR (PROTONIX) 40 mg tablet Indications: Hiatal hernia Take 1 tablet by mouth once daily. 90 tablet 3 03/30/2022 Active Start: 04-10-2020 End: 11-25-2020 take 1 tablet by mouth once daily Pantoprazole 40 MG tablet Discontinued 40 mg PO DAILY April 10, 2020 12:00am November 25, 2020 2:24pm Comment on above: Take 1 tablet by nanci th once daily. Take 1 tablet by nanci th two times a day. perflutren lipid microspheres 1.3 mL in NaCl (PF) 0.9% 10 mL injection (DEFINITY) (20 sources) Start: 01-31-20 End: 05-01-20 perflutren lipid microspheres 1.3 mL in NaCl (PF) 0.9% 10 mL injection (DEFINITY) polyethylene glycol 3350 37400 mg powder for oral solution (2 sources) Osmotic Laxative Start: 01-31-20 End: 03-01-20 polyethylene glycol 3350 (MIRALAX) 17 gram/dose powder Indications: Constipation, unspecified constipation type Take 17 g by mouth twice daily. Dissolve dose in 4 - 8 ounces of liquid and take as directed. 1020 g 0 01/30/2023 03/01/2023 Active Comment on above: Take 17 g by mouth t wice daily. Dissolve dose in 4 - 8 ounces of liquid and take as directed. QUEtiapine 200 mg oral tablet (20 sources) Atypical Antipsychotic Start: 01-05-20 take 1 tablet by mouth at bedtime Quetiapine 300 mg tablet Active 300 mg PO AT BEDTIME January 04, 2025 12:00am Start: 01-04-2025 take 1 tablet by nanci th in the morning Quetiapine 200 mg tablet Active 200 mg PO .AM January 04, 2025 12:00am Start: 10-26-2023 take 1 tablet by nanci th once daily at bedtime QUEtiapine (SEROQUEL) 300 mg tablet Take 300 mg by mouth daily at bedtime. 10/26/2023 Active Start: 11-10-2022 End: 01-04-2025 take 2 tablets by mouth every twenty-four hours in the morning Quetiapine 400 mg tablet extended release 24 hr Discontinued 200 mg PO .am November 10, 2022 12:00am January 04, 2025 7:47pm Start: 11-10-2022 take 200 mg by mouth twice daily Quetiapine Active 200 MG PO TWICE A DAY November 10, 2022 12:00am Start: 03-21-2021 End: 10-29-2022 take 1 tablet by mouth once daily at bedtime QUEtiapine XR (SEROQUEL XR) 400 mg 24 hr tablet TAKE 1 TABLET BY MOUTH ONCE DAILY AT BEDTIME 30 tablet 0 03/21/2021 10/29/2022 Discontinued Start: 04-08-2020 take 1 tablet by nanci th at bedtime Quetiapine Fumarate (Seroquel Xr) 400 MG Tab.Sr.24h Active 400 MG PO AT BEDTIME April 08, 2020 12:42pm take 1 tablet by nanci th twice daily QUEtiapine (SEROQUEL) 200 mg tablet Take 200 mg by mouth twice daily. Active Comment on above: TAKE 1 TABLET BY NANCI TH ONCE DAILY AT BEDTIME Take 200 mg by mouth twice daily. 125 ml sodium chloride 9 mg/ml prefilled syringe (20 sources) Start: 01-30-2022 End: 05-01-2023 sodium chloride 0.9 % (flush) 10 mL (BD POSIFLUSH) Start: 12-20-2021 End: 06-18-2022 NaCl 0.9% iv infusion Start: 12-20-2021 End: 06-18-2022 NaCl (PF) 0.9% 10-20 mL inje ction sucralfate 1000 mg oral tablet (20 sources) Aluminum Complex Start: 10-26-2023 take 1 tablet by mouth every six hours sucralfate (Carafate) 1 gram tablet Take 1 tablet (1 g) by mouth every 6 hours. 10/26/2023 Active Start: 09-26-2023 End: 11-25-2023 take 1 tablet by mouth four times daily sucralfate (CARAFATE) 1 gram tablet Take 1 tablet by mouth four times daily. 240 tablet 0 09/26/2023 11/25/2023 Start: 11-10-2022 End: 09-12-2023 take 1 mL by mouth four times daily Sucralfate (Carafate) 100 mg/mL suspension Discontinued 10 mL PO .qid 420 November 10, 2022 12:00am September 12, 2023 9:36am Comment on above: Take 1 tablet by nanci four times daily. Completed/Discontinued Medications Medication Drug Class(es) Dates Sig (Normalized) Sig (Original) acetaminophen 500 mg oral tablet (20 sources) Start: 11-11-2022 End: 01-04-2025 Acetaminophen 500 mg tablet Discontinued 500 mg as needed for pain November 11, 2022 12:00am January 04, 2025 7:45pm Start: 10-23-2022 End: 10-30-2022 take 40-44.9 tablets by mouth every six hours acetaminophen (TYLENOL) 500 mg tablet Indications: Class 3 severe obesity with serious comorbidity and body mass index (BMI) of 40.0 to 44.9 in adult, unspecified obesity type (HCC) Take 2 tablets by mouth every 6 hours for 7 days. TO START AFTER SURGERY 56 tablet 0 10/23/2022 10/30/2022 Active End: 10-23-2022 take 1 tablet by mouth every eight hours as needed acetaminophen (TYLENOL EXTRA STRENGTH) 500 mg tablet Take 500 mg by mouth every 8 hours as needed. 0 10/23/2022 Discontinued (Course of therapy completed) Comment on above: Take 500 mg by mouth every 8 hours as needed. Take 2 tablets by [facility] every 6 hours for 7 days. TO START AFTER SURGERY acetaminophen 325 mg / HYDROcodone bitartrate 5 mg oral tablet (20 sources) Opioid Agonist Start: 06-02-2024 End: 01-04-2025 Hydrocodone-Acetaminophe n 5-325 mg tablet Discontinued 1 {tbl} PO EVERY 6 HOURS NEEDED as needed for Pain 10 June 02, 2024 January 04, 2025 7:45pm Start: 05-21-2021 take 1 tablet by nanci every six hours as needed Hydrocodone-Acetaminophen Active 1 TABLE T PO EVERY 6 HOURS NEEDED 12 November 16, 2021 11:30pm Start: 07-20-2020 End: 07-22-2020 Hydrocodone-Acetaminophen 1 TABLET tablet Discontinued 1 {tbl} PO EVERY 4 HOURS NEEDED as needed for Pain 10 July 20, 2020 July 21, 2020 1:00am July 22, 2020 1:03am Start: 07-20-2020 End: 07-22-2020 take 1 tablet by mouth every four hours as needed Hydrocodone-Acetaminophen Discontinued 1 TABLET PO EVERY 4 HOURS NEEDED 10 July 20, 2020 July 22, 2020 1:03am Albuterol (2 sources) beta2-Adrenergic Agonist take 2 puff(s) by inhalation every four hours as needed albuterol sulfate (PROAIR HFA INHALATION) Inhale 2 Puffs as instructed every 4 hours as needed. 0 Active Comment on above: Inhale 2 Puffs as in structed every 4 hours as needed. apixaban 5 mg oral tablet (8 sources) Factor Xa Inhibitor Start: 04-08-20 End: 04-10-20 take 1 tablet by mouth twice daily Apixaban 5 mg tablet Discontinued 5 mg PO TWICE A DAY April 08, 2020 12:00am April 10, 2020 10:20am Calcium Carbonate-Vitamin D2 (Calcium + Vitamin D) 600 mg calcium- 200 unit Tablet (6 sources) Start: 11-11-19 End: 01-05-20 Calcium Carbonate-Vitamin D2 (Calcium + Vitamin D) 600 mg calcium- 200 unit Tablet Discontinued 1 {tbl} PO DAILY November 10, 2022 12:00am January 04, 2025 7:45pm Start: 11-10-2022 take 1 tablet by nanci th once daily Calcium Carbonate-Vitamin D2 (Calcium + Vitamin D) 600 mg calcium- 200 unit Tablet Active 1 TABLET PO DAILY November 09, 2022 11:00pm Start: 11-10-2022 take 1 tablet by nanci th once daily Calcium Carbonate-Vitamin D2 (Calcium + Vitamin D) 600 mg calcium- 200 unit Tablet Active 1 TABLET PO DAILY November 10, 2022 12:00am cosyntropin 0.25 mg injection (CORTROSYN) (1 source) Start: 12-20-2021 End: 12-20-2021 cosyntropin 0.25 mg injection (CORTROSYN) cyclobenzaprine hydrochloride 5 mg oral tablet (12 sources) Muscle Relaxant Start: 06-02-2024 End: 01-04-2025 take 1 tablet by mouth three times daily as needed for muscle spasms Cyclobenzaprine 5 mg tablet Discontinued 5 mg PO THREE TIMES A DAY as needed for muscle spasm June 02, 2024 1:00am January 04, 2025 7:45pm Start: 11-19-2023 End: 12-19-2023 take 1 tablet by mouth every eight hours as needed cyclobenzaprine (FLEXERIL) 5 mg tablet Take 1 tablet by mouth three times a day as needed for muscle spasm. 90 tablet 0 11/19/2023 12/19/2023 Active Start: 05-21-2021 take 10 mg by mouth twice daily Cyclobenzaprine Active 10 MG PO TWICE A DAY May 21, 2021 4:54pm dicyclomine hydrochloride 20 mg oral tablet (2 sources) Anticholinergic Start: 09-09-2023 End: 01-04-2025 take 1 tablet by mouth three times daily as needed for pain Dicyclomine 20 mg tablet Discontinued 20 mg PO THREE TIMES A DAY as needed for abdominal pain September 09, 2023 8:27pm January 04, 2025 7:45pm 0.4 ml enoxaparin sodium 100 mg/ml prefilled syringe (16 sources) Low Molecular Weight Heparin Start: 11-10-2022 End: 09-12-2023 Enoxaparin (Lovenox) 40 mg/0.4 mL Syringe Discontinued 40 mg SC Q12H November 10, 2022 12:00am September 12, 2023 9:36am Start: 10-23-2022 End: 11-20-2022 inject 0.4 mL by subcutaneous injection every twelve hours enoxaparin (LOVENOX) 40 mg/0.4 mL Indications: deep vein thrombosis prevention , pulmonary thromboembolism prevention Inject 0.4 mL subcutaneously every 12 hours for 28 days. TO START AFTER SURGERY 22.4 mL 0 10/23/2022 11/20/2022 Active Comment on above: Inject 0.4 mL subcut aneously every 12 hours for 28 days. TO START AFTER SURGERY folic acid 0.4 mg oral tablet (13 sources) End: take 1 tablet by mouth once daily folic acid 400 mcg tablet Take 400 mcg by mouth once daily. 0 10/29/2022 Discontinued Comment on above: Take 400 mcg by mout h once daily. lidocaine 0.05 mg/mg medicated patch (3 sources) Antiarrhythmic, Amide Local Anesthetic Start: End: Lidocaine (Dermacinrx Lidocan) 5 % adhesive patch,medicated Discontinued 1 NMA TOPICAL DAILY June 02, 2024 1:00am January 04, 2025 7:45pm leave on most painful area for up to 12 hrs Start: 05-21-2021 apply 1 dose topical ly once daily Lidocaine (Lidoderm) 5 % adhesive patch,medicated Active 1 PATCH TOPICAL DAILY May 21, 2021 4:54pm leave on most painful area for up to 12 hrs metoclopramide 5 mg oral tablet (2 sources) Dopamine-2 Receptor Antagonist Start: 11-24-2023 End: 01-04-2025 take 1 tablet by mouth every six hours Metoclopramide Hcl (Reglan) 5 mg tablet Discontinued 5 mg PO EVERY 6 HOURS November 24, 2023 12:00am January 04, 2025 7:45pm oxyCODONE hydrochloride 5 mg oral tablet (3 sources) Opioid Agonist Start: 11-12-2022 End: 11-14-2022 take 1 tablet by mouth every six hours as needed for pain oxyCODONE IR (ROXICODONE) 5 mg immediate release tablet Indications: Abdominal pain Take 1 tablet by mouth every 6 hours as needed for pain for up to 2 days. 8 tablet 0 11/12/2022 11/14/2022 Comment on above: Take 1 tablet by nanci every 6 hours as needed for pain for up to 2 days. traMADol hydrochloride 50 mg oral tablet (7 sources) Opioid Agonist Start: 11-10-2022 End: 09-12-2023 take 1 tablet by mouth every eight hours as needed for pain Tramadol 50 mg tablet Discontinued 50 mg PO EVERY 8 HOURS as needed for Pain November 10, 2022 12:00am September 12, 2023 9:36am Start: 11-08-2022 End: 11-12-2022 take 1 tablet by mouth every six hours as needed for pain traMADol (ULTRAM) 50 mg tablet Indications: S/P gastric bypass Take 1 tablet by mouth every 6 hours as needed for pain for up to 4 days. 16 tablet 0 11/08/2022 11/12/2022 Active Comment on above: Take 1 tablet by nanci every 6 hours as needed for pain for up to 4 days. ursodiol 300 mg oral capsule (20 sources) Bile Acid Start: 10-23-2022 End: 09-12-2023 take 1 capsule by mouth twice daily Ursodiol (Actigall) 300 mg Capsule Discontinued 300 mg PO TWICE A DAY November 10, 2022 12:00am September 12, 2023 9:36am Comment on above: Take 1 capsule by mo [facility] twice daily. TO START AFTER SURGERY Problems Active Problems Problem Classification Problem Date Documented Da te Episodic/Chronic Abdominal hernia (20 sources) Paraesophageal hernia; Translations: [Diaphragmatic hernia without obstruction or gangrene] Onset: 4 Episodic Abdominal pain (20 sources) Acute abdominal pain; Translations: [Unspecified abdominal pain] Onset: 3 Resolved: 4 Episodic Administrative/social admission (6 sources) Patient encounter status; Translations: [Dietary counseling and surveillance] Episodic Anxiety disorders (13 sources) Posttraumatic stress disorder; Translations: [Post-traumatic stress disorder, unspecified] Chronic Attention-deficit, conduct, and disruptive behavior disorders (8 sources) Attention deficit hyperactivity disorder 11-25-2020 Chronic Biliary tract disease (1 source) Biliary sludge; Translations: [Other specified diseases of gallbladder] Episodic Complications of surgical procedures or medical care (5 sources) Postoperative intestinal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 [id number] Pt. Type: A Room/Bed: / Admit/Disch: 01/20/24 06:18:36 - Institution: Preop - Case Times - Main OR Entry 1 Patient Arrival Time 01/20/24 06:58:00 Patient Ready for 01/20/24 07:07:00 Surgery Report Given to n/a Last Modified By: Debra Lira RN 01/20/24 07:07:58 Finalized By: Debra Lira RN Document Signatures Signed By: Debra Lira RN 01/20/24 07:07 [facility] Protocol/Pre-Proc TimeOut-Texton 01-20-2024 [facility] Protocol/Pre-Proc TimeOut-Text [facility] Protocol Entered On: 01/20/2024 6:32 EDT Performed On: 01/20/2024 6:55 EDT by Debra Lira RN All Procedures Pre-Procedure Verification : Patient Identification (Name & Date), Informed Consent (Signed, Dated), Procedure Identified by Patient Procedure this U.P. is completed for: : ROBOTIC LEFT INGUINAL HERNIA REPAIR WITH MESH, POSSIBLE OPEN Procedure Location : Surgery Debra Lira RN - 01/20/2024 6:55 EDT Allergy (As Of: 01/20/2024 06:55:28 EDT) Allergies (Active) cinnamon Estimated Onset Date: Unspecified ; Created By: Lora Riley RPh Reaction Status: Active ; Category: Food ; Substance: cinnamon ; Type: Allergy ; Updated By: Rosemary Lora loera; Reviewed Date: 01/15/2024 5:54 EDT codeine Estimated Onset Date: Unspecified ; Created By: Martha Butler RN; Reaction Status: Active ; Category: Drug ; Substance: codeine ; Type: Allergy ; Updated By: Martha Butler RN; Reviewed Date: 01/14/2024 15:19 EDT NSAIDs Estimated Onset Date: Unspecified ; Created By: Martha Butler RN; Reaction Status: Active ; Category: Drug ; Substance: NSAIDs ; Type: Allergy ; Updated By: Martha Butler RN; Reviewed Date: 01/14/2024 15:19 EDT Beta Serge Beta Serge History : Patient does not take a Beta Serge Debra Lira RN - 01/20/2024 6:55 EDT Site Marking Site Marking : Operative or Invasive Site / Side Marked Per Policy Site : left groin Laterality Bryan Protocol : Left Site Verification Completed : By Provider, In Pre-op / Procedure Holding area, Other: verified in or Pamela Dial - 01/20/2024 8:05 EDT Surgery / Sedation OR Procedure & Sedation Verification : History & Physical (within 30 days), Nursing Assessment Completed Relevant Images : Relevant Images / Diagrams Properly Labeled & Displayed Relevant Diagnostic Tests : Relevant Diagnostic Tests Available Blood Products : N/A Implants / Equiment : Required Implants & Special Equipment Available Correct Procedure : Accurate Procedure Consent Form, Correct Procedure, Correct Patient Position Antibiotics : Administration of Antibiotics or Fluids for Irrigation Purpose Safety Precautions : Safety Precautions Based on Patient Medication or History Date/Time of OR Procedure Sedation Checklist : 01/20/2024 07:45 EDT Pamela Dial - 01/20/2024 8:05 EDT Final Verification Date/Time : 01/20/2024 08:22 EDT Verification : Patient Identified (Name and Date), Correct Procedure, Site / Side Marked & Visible toTeam, All Team Members are in Agreement Laterality : Left Pamela Dial - 01/20/2024 8:23 EDT Normal [facility] DVT/VTE Risk Factor-Texton 0 01-14-2024 DVT/VTE Risk Factor-Text DVT/VTE Risk Factor Entered On: 01/14/2024 14:20 EDT Performed On: 01/14/2024 14:19 EDT by Nicolasa Aguilar RN DVT/VTE Risk Factor SCD's Ordered : Yes Antiembolism Device : SCDs, knee high Risk Factors=2 : Major Surgery (Surgery over 30 min or stay over 24hrs.) Total Risk score : 2 VTE Risk Level : Score 2 = MODERATE RISK Nicolasa Aguilar RN - 01/14/2024 14:19 EDT Normal [facility] Preadmission Testing Progres s Noteon 01-14-2024 Preadmission Testing Progress Note PREADMISSION TESTING (PAT) INSTRUCTION SHEET [ X] Bring your Surgery Guide with you on day of surgery [ X ] Read and complete your Discharge Planning Checklist [ X ] Take only highlighted medications on morning of surgery [ X ] Stop all vitamins and herbal supplements 7 days prior to surgery (unless otherwise instructed) [X ] Call Surgeon when to stop taking the following: [ X ] Anti-inflammatory/aspirin [ X ] Bring on day of surgery: [ X ] C-pap machine (if prescribed) *Any major change in your medical condition, that was treated by your primary physician or the result of an Emergency Room visit, must be reported to your surgeon. Normal [facility] ED Physician Reporton 2023 ED Physician Report VINNIE OLIVAREZ :1985 Registration Date:12/27/2023 Basic Information Time Seen: [2042] Arrival Mode: Walk-In [] History Source: Patient _ _ [] History limitation: None [] History of Present Illness This is a 38 y/o male, with pmhx of HDL, left adrenal gland removal, blood clots in left leg, sleep apnea, and gastric bypass surgery, presenting to the ED for an evaluation of left sided groin pain onset 3 months. Pt notes that he has been experiencing abdominal pain for the past 3 months and states that there was a bulge present. He states that he was concerned about a hernia, so he had consulted with 2 doctors and a surgeon. Each Dr. had a different viewpoint, so pt had opted to wait out the pain. He states that the surgeon did not see a bulge, and did not see a reason to proceed with surgery. He states that he has been nauseous for the past week, and had 1 episode of vomiting yesterday. Pt notes that he has been taken off of blood thinning medication from since he had a blood clot in his left lower leg. The pt has voiced no other complaints, symptoms, or concerns at this time. Review of Systems Constitutional: No weight loss, night sweats, fatigue, fevers or chills Psychiatric: no change in mood, no change in sleep patterns. no auditory or visual hallucinations Eye: No erythema, discharge or drainage. no change in vision ENT: no change in hearing, ear pain, discharge or drainage. No sore throat, mouth sores/lesions. no nasal congestion. Cardiac: No chest pain, palpitations, leg swelling Pulmonary: No shortness of breath, cough, congestion GI: yes abdominal pain, nausea, vomiting, diarrhea or constipation. No rectal bleeding or bloody stools. : No dysuria, hematuria, increased urinary frequency, pain in suprapubic region. Musculoskeletal: No arthralgias, myalgias, swelling, injuries, color change or deformities Skin: No rashes or wounds. Neurologic: No Lightheadedness, dizziness, weakness, numbness or tingling. No headaches. Physical Exam Vitals & Measurements Initial: HR: 64 (Peripheral) BP: 139/ 93 SpO2: 99% O2 Therapy: Room air Latest: HR: 55 (Peripheral) BP: 119/64 SpO2: 97% Vital Signs: Per nurse's notes. General: Alert Skin: Warm, dry, no rash. Head: Normocephalic, atraumatic. Neck: Supple, trachea midline. Eye: Pupils are equal, round and reactive to light, extraocular movements are intact, normal conjunctiva. Ears, nose, mouth and throat: Tympanic membranes clear, oral mucosa moist. Cardiovascular: Regular rate and rhythm, no murmur. Respiratory: Lungs are clear to auscultation, respirations are non-labored, breath sounds are equal. Chest wall: No tenderness, no deformity. Back: Nontender, normal range of motion, normal alignment. Musculoskeletal: Normal ROM, normal strength, no tenderness, no swelling, no deformity. Gastrointestinal: Soft, inguinal region tenderness to palpation, non distended, normal bowel sounds, mass in inguinal region, no peritoneal signs. Lymphatics: No lymphadenopathy. Psychiatric: Cooperative, appropriate mood & affect. Neurological: Alert and oriented to person, place, time, and situation, no focal neurological deficit observed. Medical Decision Making Differential Diagnosis: inguilnal hernia, incarcerated hernia, abdominal wall defect Clinical Course: Patient is a 38-year-old male who presents with concern for left inguinal pain and a mass in his left groin. On presentation, patient vital signs are within acceptable limits. On physical exam, he does have a mass in the left inguinal region. No peritoneal signs. He is tender to palpation in the left inguinal region. On laboratory evaluation, negative lactate. Mild elevation of lipase. No midepigastric tenderness. No significant leukocytosis or anemia. CT scan of the abdomen and pelvis is obtained which shows a fat-containing inguinal hernia with no evidence of bowel. Otherwise chronic findings. Patient given Bentyl here in the ER. Will give referral to general surgery. Given return precautions for incarceration. Discharged in stable condition with care instructions return precautions and follow-up instructions. Patient question concerns addressed and agreeable with plan. Disposition: to home Reexamination/Reevaluation Systolic Blood Pressure: 145 mmHg High Diastolic Blood Pressure: 97 mmHg High Temperature Oral: 36.8 degC Respiratory Rate: 20 br/min SpO2: 99 % Oxygen Therapy: Room air Peripheral Pulse Rate: 98 bpm Weight Dosin.8 kg Discharge/Plan *Discharge Disposition Discharge to home Patient Education Inguinal Hernia Follow Up With When Contact Information LEA VALADEZ, General Surgery Within 3 to 5 days [address] [facility] [address] [place] [address]- Business (1) Additional Instructions: Assessment This Visit Diagnosis Hernia, inguinal, left K40.90 Orders: dicyclomine(dicyclo (more content not included)... Normal [facility] AUTO DIFFon 12-27-2023 Baso Count 0.03 x1000 Normal 0.00-0.20 [facility] Comment on above: Performed By: #### 1 81038, 205299, 236975, [id number] ####[facility] [address] [place], [place] [id number] Medical Director: Fredy Zapata MD Basos % 0.6 % Normal [facility] Comment on above: Performed By: #### 1 35518, 371532, 978742, 8178535 ####[facility] [address] [place] [address] Medical Director: Fredy Zapata MD Eos Count 0.08 x1000 Normal 0.00-0.50 [facility] Comment on above: Performed By: #### 1 74619, 087800, 154682, [id number] ####[facility] [address] [place] [address] Medical Director: Fredy Zapata MD Eosinophils/100 WBC (Bld) 1.6 % Normal [facility] Comment on above: Performed By: #### 1 01204, 324962, 713482, 9468905 ####[facility] [address] [place] [address] Medical Director: Fredy Zapata MD Lymph Count 2.05 x1000 Normal 1.20-4.80 [facility] Comment on above: Performed By: #### 1 18216, 059683, 542675, 5735393 ####[facility] [address] [place] [address] Medical Director: Fredy Zapata MD Lymphocytes/100 WBC (Bld) 39.7 % Normal [facility] Comment on above: Performed By: #### 1 30014, 510652, 743445, 4364005 ####[facility] [address] [place] [address] Medical Director: Fredy Zapata MD [place] Count 0.45 x1000 Normal 0.10-1.00 [facility] Comment on above: Performed By: #### 1 13253, 191510, 000494, 6581670 ####[facility] [address] [place] [address] Medical Director: Fredy Zapata MD Monocytes/100 WBC (Bld) 8.7 % Normal [facility] Comment on above: Performed By: #### 1 53978, 924605, 513624, 7868573 ####[facility] [address] [place] [address] Medical Director: Fredy Zapata MD Neutrophil Count (ANC) 2.55 x1000 Normal 1.40-8.80 So [facility] Comment on above: Performed By: #### 1 06802, 791410, 514650, 3968469 ####[facility] [address] [place] [address] Medical Director: Fredy Zapata MD Neutrophils/100 WBC (Bld) 49.4 % Normal [facility] Comment on above: Performed By: #### 1 89643, 221051, 464579, 0649256 ####[facility] [address] [place] [address] Medical Director: Fredy Zapata MD COMPMETAon 12-27-2023 Albumin [Mass/Vol] 3.9 g/dL Normal 3.4-5.0 [facility] Comment on above: Performed By: #### 1 51094, 489954, 878571, 0156597 ####[facility] [address] [place] [address] Medical Director: Fredy Zapata MD Albumin/Globulin [Mass ratio] 1.3 {ratio} Normal [facility] Comment on above: Performed By: #### 1 79257, 641898, 177769, 2806046 ####[facility] [address] [place] [address] Medical Director: Fredy Zapata MD Alk Phos 109 unit/L Normal 45-117 [facility] Comment on above: Performed By: #### 1 02371, 561630, 668101, 4487179 ####[facility] [address] [place] [address] Medical Director: Fredy Zapata MD Bilirubin [Mass/Vol] 0.30 mg/dL Normal 0.30-1.20 [facility] Comment on above: Result Comment: Use of this assay is not recommended for patients undergoing treatment with eltrombopag due to the potential for falsely elevated results. Performed By: #### 1 35414, 418597, 340847, 7267538 ####[facility] [address] [place], [place] [id number]) [phone] Director: Fredy Zapata MD Calcium [Mass/Vol] 9.3 mg/dL Normal 8.7-10.4 [facility] Comment on above: Performed By: #### 1 03609, 039423, 658249, 6490985 ####[facility] [address] [place] [address] Medical Director: Fredy Zapata MD Chloride [Moles/Vol] 112 mmol/L High 98-107 [facility] Comment on above: Performed By: #### 1 20757, 879628, 227397, 3630562 ####[facility] [address] [place] [address] Medical Director: Fredy Zapata MD CO2 [Moles/Vol] 27.0 mmol/L Normal 20.0-31.0 [facility] Comment on above: Performed By: #### 1 85973, 453561, 501217, 0244784 ####[facility] [address] [place] [address] Medical Director: Fredy Zapata MD Creatinine [Mass/Vol] 0.8 mg/dL Normal 0.6-1.1 [facility] Comment on above: Performed By: #### 1 83510, 745807, 175026, 1649991 ####[facility] [address] [place] [address] Medical Director: Fredy Zapata MD GFR AA >60 Normal [facility] Comment on above: Result Comment: Afri can Martiniquais GFR Calc Medical judgement is necessary to interpret GFR. The calculated GFR may not accurately reflect renal status in patients >70 years, women, acutely ill hospitalized patients and patients with acute renal failure or known renal disease. The MDRD GFR formula is valid only for adults greater than 18 years of age. Note: Creatinine clearance (not GFR) should be used for drug dosing. Performed By: #### 1 11816, 400474, 710245, 3929044 ####[facility] [address] [place], [place] [id number]) [phone] Director: Fredy Zapata MD Globulin (S) [Mass/Vol] 3.0 g/dL Normal [facility] Comment on above: Performed By: #### 1 27327, 529196, 501179, 7481985 ####[facility] [address] [place] [address] Medical Director: Fredy Zapata MD Glomerular Filtration Rate >60 Normal [facility] Comment on above: Result Comment: Non- GFR Calc Medical judgement is necessary to interpret GFR. The calculated GFR may not accurately reflect renal status in patients >70 years, women, acutely ill hospitalized patients and patients with acute renal failure or known renal disease. The MDRD GFR formula is valid only for adults greater than 18 years of age. Note: Creatinine clearance (not GFR) should be used for drug dosing. Performed By: #### 1 68225, 031926, 335483, 4784193 ####[facility] [address] [place] [address] Medical Director: Fredy Zapata MD Glucose [Mass/Vol] 86 mg/dL Normal 74-106 [facility] Comment on above: Performed By: #### 1 07220, 154504, 159547, 3408692 ####[facility] [address] [place] [address] Medical Director: Fredy Zapata MD GOT 18 unit/L Normal 15-37 [facility] Comment on above: Performed By: #### 1 72291, 192590, 840412, 0637203 ####[facility] [address] [place] [address] Medical Director: Fredy Zapata MD GPT 11 unit/L Normal 10-49 [facility] Comment on above: Performed By: #### 1 38322, 604530, 746167, 3335005 ####[facility] [address] [place] [address] Medical Director: Fredy Zapaat MD Osmolality [Osmolality] 284 mosm/kg Normal 275-295 [facility] Comment on above: Performed By: #### 1 27423, 867378, 684646, 0854444 ####[facility] [address] [place] [address] Medical Director: Fredy Zapata MD Potassium [Moles/Vol] 4.4 mmol/L Normal 3.5-5.1 [facility] Comment on above: Performed By: #### 1 05031, 761645, 409298, 2542847 ####[facility] [address] [place] [address] Medical Director: Fredy Zapata MD Protein [Mass/Vol] 6.9 g/dL Normal 5.7-8.2 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 Comment on above: Performed By: #### 1 65094, 201575, 840987, 5968431 ####[facility] [address] [place] [address] Medical Director: Fredy Zapata MD Urea nitrogen [Mass/Vol] 13 mg/dL Normal 9-23 [facility] Comment on above: Result Comment: - Ve nipuncture should occur prior to N-Acetyl Cysteine (NAC) or Metamizole (Sulpyrine) administration due to the potential for falsely depressed results. - Blood samples from some patients with monoclonal gammopathies may produce falsely elevated results Performed By: #### 1 34607, 334714, 982476, 7517340 ####[facility] [address] [place], [place] [address] Medical Director: Fredy Zapata MD Urea nitrogen/Creatinine [Mass ratio] 16.2 mg/mg Normal [facility] Comment on above: Performed By: #### 1 66964, 975522, 687640, 6523137 ####[facility] [address] [place], [place] [address] Medical Director: Fredy Zapata MD CT ABD PELVIS W IV CONTRASTo n 12-27-2023 CT ABD PELVIS W IV CONTRAST CT ABDOMEN PELVIS WITH IV CONTRAST COMPARISONS: November 11, 2023. ADDITIONAL PERTINENT HISTORY: Left lower quadrant pain with history of gastric bypass TECHNIQUE: Multiple axial images were obtained from the lung bases through the lesser trochanters after the adminstration of intravenous contrast. One of the following dose optimization techniques was utilized in the performance of this exam: Automated exposure control; adjustment of the mA and/or kV according to the patient's size; or use of an iterative reconstruction technique. Specific details can be referenced in the facility's radiology CT exam operational policy. CONTRAST: mL of IV . FINDINGS: Lung bases: negative Free air/free fluid: none Liver: negative Spleen: negative Adrenal glands: negative Kidneys /ureters/urinary bladder: negative Pancreas: negative Gall Bladder: negative Bowel / mesentery: Patient status post previous gastric bypass. No bowel obstruction. Small hiatal hernia. Lymph node assessment: negative Pelvic contents: Moderate enlargement of the prostate. Abdominal vasculature: Atherosclerotic disease of the abdominal aorta and its major branches. Surrounding soft tissues: Interval development of a moderate-sized fat-containing left inguinal hernia. No bowel within this hernia defect. Osseous structures: Spondylitic change involving the thoracolumbar spine. Mild scoliotic curvature convex to the left centered along the mid lumbar spine. IMPRESSION: 1. Interval development of a moderate-sized fat-containing left inguinal hernia with no bowel within this hernia defect. 2. Other chronic findings similar to previous exam. Electronically signed by: Arturo Ferraro MD 12/27/2023 10:53 PM EDT RP Technologist: ANUSHA SABILLON Dictated By: Contributor_systemLILIA Signed By: Contributor_system PSCRIBE Signed Out: 12/27/23 22:53:22 Normal [facility] ED Data SENIOR CAREGIVER - Texton 024 ED Data SENIOR CAREGIVER - Text ED Data SENIOR CAREGIVER Entered On: 12/27/2023 20:42 EDT Performed On: 12/27/2023 20:40 EDT by Kandi KHAN, ED General Intake Information Information Given By : Patient [place] Coma : Document [place] Coma Scale Problem History : Document Problem History Procedure History : Document Procedure History Safety Screening : Document Safety Screening Referral Source : Home Mode of Arrival * : Car / Walk-In ED KINDER1 Falls Risk : Document Falls Assessment Infection Screening : Document Infection Screening Depression Screening : Document Depression Screening Would you accept a blood transfusion if necessary? : Yes Social History : Document Social History Currently or : Not Applicable Kandi KHAN, - 12/27/2023 20:40 EDT [place] Coma Scale Eye Opening : Spontaneously Best Verbal Response : Oriented Best Motor Response : Obeys simple commands Jones Coma Score (Ref) : 15 Kandi KHAN, - 12/27/2023 20:40 EDT Problem History (As Of: 12/27/2023 20:42:21 EDT) Problems(Active) At risk for falls (SNOMED CT :[id number] ) Name of Problem: At risk for falls ; Recorder: SYSTEM; Confirmation: Confirmed ; Classification: Nursing ; Code: 629008016 ; Last Updated: 01/29/2015 23:01 EDT ; Life Cycle Date: 01/29/2015 ; Life Cycle Status: Active ; Vocabulary: SNOMED CT ; Comments: 01/29/2015 23:01 - SYSTEM Problem added automatically by system based on documentation of a admission to the hospital. Bipolar 1 disorder (SNOMED CT :0922387750 ) Name of Problem: Bipolar 1 disorder ; Recorder: Awilda Tomas RN; Confirmation: Confirmed ; Classification: Patient/Family Stated ; Code: 5441603628 ; Contributor System: [employer]ic[employer] ; Last Updated: 12/20/2014 17:18 EDT ; Life Cycle Date: 12/20/2014 ; Life Cycle Status: Active ; Vocabulary: SNOMED CT Kidney stone (SNOMED CT :478611475 ) Name of Problem: Kidney stone ; Recorder: Flor Lubin RN; Confirmation: Confirmed ; Classification: Patient/Family Stated ; Code: 128438459 ; Contributor System: [employer]icii ; Last Updated: 01/29/2015 20:44 EDT ; Life Cycle Date: 01/29/2015 ; Life Cycle Status: Active ; Vocabulary: SNOMED CT Knowledge deficit (SNOMED CT :9790501657 ) Name of Problem: Knowledge deficit ; Recorder: SYSTEM; Confirmation: Confirmed ; Classification: Nursing ; Code: [id number] ; Last Updated: 08/25/2013 17:58 EST ; Life Cycle Date: 11/05/2011 ; Life Cycle Status: Active ; Vocabulary: SNOMED CT ; Comments: 11/05/2011 19:46 - SYSTEM Problem added automatically by system based on learning needs addressed on emergency department admission. Diagnoses(Active) Groin pain Date: 12/27/2023 ; Diagnosis Type: Reason For Visit ; Confirmation: Confirmed ; Clinical Dx: Groin pain ; Classification: Medical ; Clinical Service: Emergency medicine ; Code: PNED ; Probability: 0 ; Diagnosis Code: [id number] Procedure History ED Urinary Catheter Present on Admit to ED? : No Devices Present on Arrival To ED : None Kandi KHAN, - 12/27/2023 20:40 EDT - Procedure History (As Of: 12/27/2023 20:42:21 EDT) Anesthesia Minutes: 0 ; Procedure Name: Vasectomy. ; Procedure Minutes: 0 Procedure Dt/Tm: 02/02/2015 11:47:00 EDT ; Location: Endo ; Provider: QUINCY FRANCIS MD; Anesthesia Type: MAC ; : ERYN RUSSO MD; Anesthesia Minutes: 18 ; Procedure Name: EGD with MAC (None) ; Procedure Minutes: 12 ; Comments: 02/02/2015 12:01 EDT - Ignacia Galeana RN auto-populated from documented surgical case ; Clinical Service: Surgery Procedure Dt/Tm: 02/01/2015 14:47:00 EDT ; Location: Endo ; Provider: QUINCY FRANCIS MD; Anesthesia Type: MAC ; : SANDRA MENESES MD; Anesthesia Minutes: 36 ; Procedure Name: Colonoscopy with MAC (None) ; Procedure Minutes: 25 ; Comments: 02/01/2015 15:13 EDT - Rufina Chu RN auto-populated from documented surgical case ; Clinical Service: Surgery Safety Screening Abuse/Violence Concerns? : Patient denies Does the patient have a medically restricted extremity? : No Kandi KHAN, 12/27/2023 20:40 EDT KINDER1 Fall Risk Assessment *Presents to ED Because of Falls : No *Age > 70 : No *Altered Mental Status : No *Impaired Mobility : No *Nursing Judgment : No Kandi KHAN, 12/27/2023 20:40 EDT Infection Screening Travel outside of [place] within past 21 days? : No Positive COVID test in the last 10 days? : No Exposure to and/or close contact with a person who has a laboratory-confirmed COVID test within the last 48 hours. : No Kandi KHAN, 12/27/2023 20:40 EDT Depression Screening Patient able to verbalize? : Yes Feeling Down, Depressed, Hopeless : Not at all Little Interest - Pleasure in Activities : Not at all Initial Depression Screen Score : 0 Depression Screening Score 0 : No IP Pt being evaluated or treated for BH conditions : No Kandi KHAN, 12/27/2023 20:40 EDT Social History Are you being seen for an alcoho (more content not included)... [facility] ED Discharge Educationon ED Discharge Education Gastrointestinal Inguinal Hernia: Care Instructions Your Care Instructions An inguinal hernia occurs when tissue bulges through a weak spot in your groin area. You may see or feel a tender bulge in the groin or scrotum. You may also have pain, pressure or burning, or a feeling that something has given way. Hernias are caused by a weakness in the belly wall. The bulge or discomfort may occur after heavy lifting, straining, or coughing. Hernias do not heal on their own, and they tend to get worse over time. If your hernia does not bother you, you most likely can wait to have surgery. Your hernia may get worse, but it may not. In some cases, hernias that are small and painless may never need to be repaired. Follow-up care is a antonio part of your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 [K29.90] 09/26/2023 Encounter Status:Closed by ALFREDA SINGH on 10/18/23 [facility] CNOVon 10-17-2023 CNOV Office Visit (TILAENS 4) VINNIE OLIVAREZ ([id number]) 1985 M Date Time Provider Department 10/17/23 10:00 AM PAM SCHROEDER During your visit today, we recorded the following information about you: Pulse Blood pressure Weight Height 56/minute 110/68 85.8 kg 1.803 m Debra Crocker, GATHERING MACHINE FEEDER.DYNAMITER 10/17/2023 11:41 AM Signed Date of Surgery: 11/06/2022 Surgeon: Dr. Schroeder Surgical Procedure: Lap RYGB Pre-surgical weight: 132 kg (291 lb) 63.06% EWL at 3 month post-op -- has not been seen in office since. EGD 09/26/23 during hospitalization: - Normal esophagus. - Gastric bypass with a normal-sized pouch which measures 6 cm in size (40-46 cm) and intact staple line. Gastrojejunal anastomosis characterized by ulceration on the jejunal aspect of the gastrojejunal anastomosis. The ulceration demonstrates no sign of bleeding or stigmata of recent bleeding. The ulceration is present on the posterior candy cane side of the anastomosis. Gastric pouch Biopsied with cold biopsy forceps. - Widely patent previous surgical anastomosis, characterized by ulceration was found in the jejunum on the candy cane side of anastomosis. - Widely patent previous surgical anastomosis, characterized by healthy appearing mucosa was found in the jejunum. Due for labs, orders placed Debra Crocker APRN.Pam Clark MD 10/17/2023 11:41 AM Signed [facility] FOLLOW UP NOTE Date: October 17, 2023 Time: 11:29 AM Vinnie Olivarez is a 38 year old year old male with obesity (Body mass index is 26.39 kg/m?.) who presents to the clinic today for follow up after bariatric surgery. 63.06% EWL at 3 month post-op -- has not been seen in office since. Today at 1 year follow up he demonstrates 101 lb 12.8 oz weight loss which is 91.11% of excess weight loss! He was recently hospitalized. I performed an EGD on 09/26/23 which demonstrated marginal ulcer. He feels better today and is tolerating a soft diet. His continues to smoke, but is trying to smoke outside of the house and away from him He complains of severe left groin pain Pathology: No pathologic abnormalities EGD 09/26/23 during hospitalization: - Normal esophagus. - Gastric bypass with a normal-sized pouch which measures 6 cm in size (40-46 cm) and intact staple line. Gastrojejunal anastomosis characterized by ulceration on the jejunal aspect of the gastrojejunal anastomosis. The ulceration demonstrates no sign of bleeding or stigmata of recent bleeding. The ulceration is present on the posterior candy cane side of the anastomosis. Gastric pouch Biopsied with cold biopsy forceps. - Widely patent previous surgical anastomosis, characterized by ulceration was found in the jejunum on the candy cane side of anastomosis. - Widely patent previous surgical anastomosis, characterized by healthy appearing mucosa was found in the jejunum. Due for labs, orders placed Clinic Date: 10/17/2023 Vinnie Olivarez, 38 year old [address] [facility] [id number] Index Surgery Date of Surgery: 11/06/2022 Surgeon Attending: Pam Schroeder MD Surgical Procedure: Lap RYGB Pre-surgical weight: 132 kg (291 lb) Other Bariatric Surgeries None Time Since Surgery: 11 months Extra Procedures: None COMPLICATIONS DURING ADMISSION: None Operative Complications: No Complications Prior to Discharge: No COMPLICATIONS SINCE DISCHARGE?: NONE Estimated body mass index is 26.39 kg/m? as calculated from the following: Height as of this encounter: 180.3 cm (5' 11). Weight as of this encounter: 85.8 kg (189 lb 3.2 oz). Margaret weight: 81.3 kg (179 lb 4.3 oz) Excess weight: 50.7 kg (111 lb 11.7 oz) % of excess body weight lost: 46.2 kg (101 lb 12.8 oz) (91.11% of excess weight loss) Daily approximate Fluid intake: 75-80 fl oz per 24 hours Daily approximate protein intake: 80-90 grams per 24 hours Present Activity level: resistance training; walking Have you attended any Support Group? No attendance DIET INTAKE: tolerates Phase V diet DAILY SUPPLEMENTS: Calcium: Calcium Citrate w/ vitamin D (1200 - 1500mg) Multivitamin AND Minerals: 1 per day Iron Supplement: included in multi-vitamin Vitamin A: included in multi-vitamin Vitamin B12: 500 mcg B Complex: included in multi-vitamin Biotin: No Vitamin C: included in multi-vitamin Vitamin D3: included in multi-vitamin Vitamin E: included in multi-vitamin Zinc: included in multi-vitamin Other: N/A PAST MEDICAL HISTORY Diagnosis Date Back pain extra vertebrae in my lower back. 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 Normal [facility] ANES POSTPROC EVALon 024 ANES POSTPROC EVAL HNO ID: [id number] Author: MINDY BARAKAT MD Service: Anesthesiology Author Type: Anesthesiologist Type: Anesthesia Postprocedure Evaluation Filed: 09/26/2023 13:37 Note Text: POST ANESTHESIA EVALUATION NOTE : 1985 Procedure Summary Date: 09/26/23 Room / Location: [facility] Anesthesia Start: 1223 Anesthesia Stop: 1241 Procedure: EGD WITH BIOPSY (Esophagus) Diagnosis: Gastritis and duodenitis (Gastritis and duodenitis [K29.90]) Surgeons: Pam Schroeder MD Responsible Provider: Mindy Barakat MD Anesthesia Type: MAC ASA Status: 3 Anesthesia Type: MAC Last Vitals Vitals Value Taken Time BP 147/93 09/26/23 1300 Temp 36.7 ?C (98.1 ?F) 09/26/23 1240 Pulse 57 09/26/23 1300 Resp 17 09/26/23 1300 SpO2 100 % 09/26/23 1300 Post Anesthesia Patient Status Patient Evaluation: PACU. PACU/ICU Patient Condition: stable. Anticipated Disposition: inpatient floor planned admission. Neurological Status: aware and responsive. Pulmonary Status: breathing comfortably on room air Cardiovascular Status: stable. Pain Management: clinically adequate Postoperative Hydration: acceptable. Intraoperative Events: no significant anesthesia events Post Operative Nausea/Vomiting Status: no significant post operative nausea or vomiting Recommendation: further care per PACU/ICU/floor team. Anesthesia Observations No Documentation SIGNATURE: Mindy Barakat MD PATIENT NAME: Vinnie Oilvarez DATE: September 26, 2023 TIME: 1:37 PM CSN: [id number] Normal [facility] ANES PRE-OPon 09-26-2023 ANES PRE-OP HNO ID: [id number] Author: MINDY BARAKAT MD Service: Anesthesiology Author Type: Anesthesiologist Type: Anesthesia Preprocedure Evaluation Filed: 09/26/2023 11:39 Note Text: ANESTHESIOLOGY DAY OF SURGERY NOTE : 1985 Procedure Information Date/Time: 09/26/23 1200 Procedure: EGD WITH BIOPSY (Esophagus) Location: [facility] Surgeons: Pam Schroeder MD Estimated body mass index is 28.17 kg/m? as calculated from the following: Height as of this encounter: 180.3 cm (5' 11). Weight as of this encounter: 91.6 kg (201 lb 15.1 oz). Most recent hematocrit and potassium results: Hematocrit 32.2 09/26/2023 Potassium 3.8 09/26/2023 Other history: Admit 09/24 with abd pain s/p shahab-en-Y 10/2022; ?marginal ulcer H/o DVT - LLE, not currently on AC HTN GERD TIFFANIE - on CPAP ADHD Bipolar disorder Relevant Problems ANESTHESIA (+) TIFFANIE (obstructive sleep apnea) CARDIO (+) DVT (deep venous thrombosis) (HCC) (+) Essential hypertension GI (+) GERD (gastroesophageal reflux disease) -RENAL (+) Calculus of kidney PULMONARY (+) TIFFANIE (obstructive sleep apnea) I - PHYSICAL EVALUATION AIRWAY Patient intubated: No. Tracheostomy tube not present Mallampati: III. TM distance: >3 FB. Neck ROM: full ROM without neurological symptoms. Mouth opening: adequate. Short neck: no. Thick neck: no Yarbrough present: yes DENTAL Dental findings: poor dentition, missing tooth/teeth and broken tooth. II - ANESTHESIA PLAN ASA Score: 3 Anesthetic Plan: MAC The patient is not a current smoker. (Uses medical marijuana daily, quit smoking cigarettes prior to bypass, h/o > 20 PYH) NPO Status: adequate Beta Serge Perioperative beta-serge/statin: n/a. Monitoring Plan Monitoring plan: standard ASA. Post Procedure Analgesic Plan Informed Consent Anesthetic risks, benefits, alternatives, personnel and consent discussed: yes. Patient / Responsible Alliance Party agrees to proceed: yes Patient / Surrogate agrees to blood products: blood products not planned Significant changes in the patient condition since the History and Physical, not otherwise documented in primary service progress note: no. Potential Anesthesia issues that may suggest increased risk of complications or contraindication to planned procedure: none. Vitals Value Taken Time BP 143/88 09/26/23 1100 Pulse 56 09/26/23 1106 Resp 16 09/26/23 1106 Temp 36.7 ?C (98 ?F) 09/26/23 1100 SpO2 100 % 09/26/23 1102 Vitals shown include unfiled device data. Facility-Administered Medications as of 09/26/2023 Medication Dose Route Frequency - [COMPLETED] morphine 4 mg injection 4 mg INTRAVENOUS ONCE - [COMPLETED] ondansetron (PF) 4 mg injection (ZOFRAN) 4 mg INTRAVENOUS ONCE - QUEtiapine 200 mg tab(s) (SEROquel) 200 mg ORAL BID - pantoprazole DR 40 mg tab(s) (PROTONIX) 40 mg ORAL BID AC (0600/1600) - FLUoxetine 40 mg cap(s) (PROzac) 40 mg ORAL DAILY - lactated ringers iv infusion 125 mL/hr INTRAVENOUS CONTINUOUS - acetaminophen 1,000 mg tab(s) (TYLENOL) 1,000 mg ORAL q 6 H - NaCl 0.9% iv flush bag 20 mL INTRAVENOUS PRN - ondansetron 4 mg tab(s) (ZOFRAN) 4 mg ORAL q 6 H PRN Or - ondansetron (PF) 4 mg injection (ZOFRAN) 4 mg INTRAVENOUS q 6 H PRN - traMADol 50 mg tab(s) (ULTRAM) 50 mg ORAL q 6 H PRN - sucralfate 1 g tab(s) (CARAFATE) 1 g ORAL QID Outpatient Medications as of 09/26/2023 Medication Sig - QUEtiapine (SEROQUEL) 200 mg tablet Take 200 mg by mouth twice daily. - OXcarbazepine (TRILEPTAL) 600 mg tablet 300mg qam 900mg qpm - diphenhydrAMINE (BENADRYL) 25 mg capsule Take 25 mg by mouth at bedtime as needed. I have interviewed and examined the patient. I have reviewed the medical record and/or the pre-anesthesia evaluation, pertinent labs, and test results. This contains updated information obtained within 48 hours of Surgery/Procedure. SIGNATURE: Mindy Barakat MD PATIENT NAME: Vinnie Olivarez DATE: September 26, 2023 TIME: 11:30 AM CSN: [id number] Normal [facility] Basic metabolic 2000 panelon 09-26-2023 Anion gap [Moles/Vol] 7 mmol/L Low 9-18 [facility] Comment on above: Order Comment: Denny beal Type: BLOOD SPECIMEN Ordering Facility: [facility] Address: [address] [place] [address] Performed By: #### 1 9123-9, 2777-1, 22571-3 #### [facility] CLIA [id number] [address] [place] [address] [place] Calcium [Mass/Vol] 8.5 mg/dL Normal 8.5-10.2 [facility] Comment on above: Order Comment: Speci men Type: BLOOD SPECIMEN Ordering Facility: [facility] Address: [address] [place] [address] Performed By: #### 1 9123-9, 2777-1, 34812-6 #### [facility] CLIA [id number] [address] [place] [address] [place] Chloride [Moles/Vol] 108 mmol/L High 97-105 [facility] Comment on above: Order Comment: Speci men Type: BLOOD SPECIMEN Ordering Facility: [facility] Address: [address] [place] [address] Performed By: #### 1 9123-9, 2777-1, 60647-9 #### [facility] CLIA [id number] [address] [place] CO2 [Moles/Vol] 26 mmol/L Normal 22-30 [facility] Comment on above: Order Comment: Speci men Type: BLOOD SPECIMEN Ordering Facility: [facility] Address: [address] [place] [address] Performed By: #### 1 9123-9, 2777-1, 51564-4 #### [facility] CLIA [id number] [address] [place] Creatinine [Mass/Vol] 0.76 mg/dL Normal 0.73-1.22 [facility] Comment on above: Order Comment: Speci men Type: BLOOD SPECIMEN Ordering Facility: [facility] Address: [address] [place] [address] Performed By: #### 1 9123-9, 2777-1, 08420-3 #### [facility] CLIA [id number] [address] [place] Creatinine and Glomerular filtration rate.predicted panel (S/P/Bld) 117 mL/min/1.73m??? Normal >=60 [facility] Comment on above: Order Comment: Speci men Type: BLOOD SPECIMEN Ordering Facility: [facility] Address: [address] [place] [address] Result Comment: Kelley mated Glomerular Filtration Rate (eGFR) is calculated using the 2020 CKD-EPI creatinine equation. This equation utilizes serum creatinine, sex, and age as parameters. The creatinine assay has traceable calibration to isotope dilution-mass spectrometry. Refer to KDIGO guidelines for clinical interpretation. In patients with unstable renal function, e.g. those with acute kidney injury, the eGFR may not accurately reflect actual GFR. Performed By: #### 1 9123-9, 2777-1, 80945-2 #### [facility] CLIA [id number] [address] [place] [address] [place] Glucose [Mass/Vol] 75 mg/dL Normal 74-99 [facility] Comment on above: Order Comment: Denny beal Type: BLOOD SPECIMEN Ordering Facility: [facility] Address: [address] [place] [address] Result Comment: The [place] Diabetes Association (ADA) provides guidance for cutoff values for fasting glucose and random glucose. The ADA defines fasting as no caloric intake for at least 8 hours. Fasting plasma glucose results between 100 to 125 mg/dL indicate increased risk for diabetes (prediabetes). Fasting plasma glucose results greater than or equal to 126 mg/dL meet the criteria for diagnosis of diabetes. In the absence of unequivocal hyperglycemia, results should be confirmed by repeat testing. In a patient with classic symptoms of hyperglycemia or hyperglycemic crisis, random plasma glucose results greater than or equal to 200 mg/dL meet the criteria for diagnosis of diabetes. Reference: Standards of Medical Care in Diabetes 2016, [place] Diabetes Association. Diabetes Care. 2016.39(Suppl 1). Performed By: #### 1 9123-9, 2777-, 36930-5 #### [facility] CLIA [id number] 1 [place] [address] [place] Potassium [Moles/Vol] 3.8 mmol/L Normal 3.7-5.1 [facility] Comment on above: Order Comment: Denny beal Type: BLOOD SPECIMEN Ordering Facility: [facility] Address: [address] [place] [address] Performed By: #### 1 9123-9, 2777-1, 51763-9 #### [facility] CLIA [id number] [address] [place] [address] Sodium [Moles/Vol] 141 mmol/L Normal 136-144 [facility] Comment on above: Order Comment: Speci men Type: BLOOD SPECIMEN Ordering Facility: [facility] Address: [address] [place] [address] Performed By: #### 1 9123-9, 2777-1, 45137-2 #### [facility] CLIA [id number] [address] [place] Urea nitrogen [Mass/Vol] 10 mg/dL Normal 9-24 [facility] Comment on above: Order Comment: Speci men Type: BLOOD SPECIMEN Ordering Facility: [facility] Address: [address] [place] [address] Performed By: #### 1 9123-9, 27771, 68279-4 #### [facility] CLIA [id number] [address] [place] [address] CBC panel Auto (Bld)on 09-25 Erythrocyte distribution width (RBC) [Ratio] 12.8 % Normal 11.5-15.0 [facility] Comment on above: Order Comment: Speci men Type: BLOOD SPECIMEN Ordering Facility: [facility] Address: [address] [place] [address] Performed By: #### 1 9123-9, 2771, 15885-5 #### [facility] CLIA [id number] [address] [place] [address] [place] Hematocrit (Bld) [Volume fraction] 32.2 % Low 39.0-51.0 [facility] Comment on above: Order Comment: Speci men Type: BLOOD SPECIMEN Ordering Facility: [facility] Address: [address] [place] [address] Performed By: #### 1 9123-9, 27771, 99849-2 #### [facility] CLIA [id number] [address] [place] Hemoglobin (Bld) [Mass/Vol] 10.9 g/dL Low 13.0-17.0 [facility] Comment on above: Order Comment: Speci men Type: BLOOD SPECIMEN Ordering Facility: [facility] Address: [address] [place] [address] Performed By: #### 1 9123-9, 27701-12, #### [facility] CLIA [id number] [address] MCH (RBC) [Entitic mass] 29.8 pg Normal 26.0-34.0 [facility] Comment on above: Order Comment: Speci men Type: BLOOD SPECIMEN Ordering Facility: [facility] Address: [address] [place] [address] Performed By: #### 1 9123-9, 27701-12, #### [facility] CLIA [id number] [address] [place] [address] MCHC (RBC) [Mass/Vol] 33.9 g/dL Normal 30.5-36.0 [facility] Comment on above: Order Comment: Speci men Type: BLOOD SPECIMEN Ordering Facility: [facility] Address: [address] [place] [address] Performed By: #### 1 9123-9, 2776-07, #### [facility] CLIA [id number] [address] [place] [address] MCV (RBC) [Entitic vol] 88.0 fL Normal 80.0-100.0 [facility] Comment on above: Order Comment: Speci men Type: BLOOD SPECIMEN Ordering Facility: [facility] Address: [address] [place] [address] Performed By: #### 1 9123-9, 27701-12, #### [facility] CLIA [id number] [address] Nucleated RBC (Bld) [#/Vol] 10*3/uL Normal <0.01 [facility] Comment on above: Order Comment: Speci men Type: BLOOD SPECIMEN Ordering Facility: [facility] Address: [address] [place] [address] Performed By: #### 1 9123-9, 2777-1, 56058-9 #### [facility] CLIA [id number] [address] [place] Platelet mean volume (Bld) [Entitic vol] 10.3 fL Normal 9.0-12.7 [facility] Comment on above: Order Comment: Speci men Type: BLOOD SPECIMEN Ordering Facility: [facility] Address: [address] [place] [address] Performed By: #### 1 9123-9, 2777-1, 00339-0 #### [facility] CLIA [id number] [address] [place] Platelets (Bld) [#/Vol] 153 10*3/uL Normal 150-400 [facility] Comment on above: Order Comment: Speci men Type: BLOOD SPECIMEN Ordering Facility: [facility] Address: [address] [place] [address] Performed By: #### 1 9123-9, 2777-1, 86656-5 #### [facility] CLIA [id number] [address] [place] RBC (Bld) [#/Vol] 3.66 10*6/uL Low 4.20-6.00 [facility] Comment on above: Order Comment: Speci men Type: BLOOD SPECIMEN Ordering Facility: [facility] Address: [address] [place] [address] Performed By: #### 1 9123-9, 2777-1, 37325-3 #### [facility] CLIA [id number] [address] [place] WBC (Bld) [#/Vol] 4.29 10*3/uL Normal 3.70-11.00 [facility] Comment on above: Order Comment: Speci men Type: BLOOD SPECIMEN Ordering Facility: [facility] Address: [address] [place] [address] Performed By: #### 1 9123-9, 2777-1, 87426-1 #### [facility] CLIA [id number] [address] OF [facility] CNDSon 09-26-2023 CNDS HNO ID: [id number] Author: PAM SCHROEDER MD Service: General Surgery Author Type: Resident Type: Discharge Summary Filed: 09/26/2023 13:44 Note Text: Attestation signed by Pam Schroeder MD at 09/26/2023 1:44 PM I saw and evaluated/examined the patient with the resident and personally participated in the antonio components. I have reviewed the resident's note and discussed the case and management of the patient's care with the resident. I agree with the above assessment and plan unless otherwise noted below. Plan of care discussed with: Provider, RN, Patient. - Greater than 30 minutes spent on discharge instructions/education. Great time was spent discussing the importance of smoking cessation - Stay on FLD/soft diet x 3 weeks - Start Protonix 40 mg BID and 1 gram Carafate QID for 8 weeks - Follow up in clinic in 3 weeks DISCHARGE SUMMARY PATIENT NAME: Vinnie Olivarez Code Status: Prior Highest Readmission Risk Score: 16 The 30 day readmissions risk score is derived from an internally validated risk model which evaluates patient level characteristics, utilization history, medication orders and lab results up until the day of discharge. Patients with a score of 40 or above are considered highest risk for readmission. Specific patient level drivers will be listed at the bottom of the summary. Admission Information Admission Information ADMIT DATE: 09/25/2023 DISCHARGE DATE: 09/26/2023 MY DOCTORS AND MEDICAL TEAM: My Main Hospital Doctor: Stefany att. providers found Primary Care Provider: Eileen Vogel MD My Medical Team Members: Treatment Team: Consulting: Nyla Gillette MD MY CONDITION AT DISCHARGE: Stable REASON I WAS IN THE HOSPITAL: Abdominal pain, marginal ulcer, hematuria SUMMARY OF WHAT HAPPENED WHILE I WAS IN THE HOSPITAL: You were in the hospital for abdominal pain. You were seen in the emergency department and found to have concerns for a marginal ulcer. You were admitted for observation. You were taken for an upper endoscopy that demonstrated a marginal ulcer. You tolerated the procedure well without any immediate complications. You were transferred to the nursing floor. You have been tolerating a diet, ambulating without difficulty, and pain has been controlled. You are being discharged today in stable condition. OTHER PROBLEMS/DIAGNOSIS: Principal Problem: Gastritis and duodenitis Resolved Problems: * No resolved hospital problems. * OPERATIONS PERFORMED WHILE IN THE HOSPITAL: 09/25- upper endoscopy IMPORTANT TEST/PROCEDURES: No procedures performed TEST RESULTS NOT AVAILABLE AT THIS TIME: No pending results Discharge Disposition Discharge Disposition: Home With Self Care Activity When You Leave the Hospital No lifting restrictions No prolonged bedrest, longer than 8 hours in a 24 hour period Diet Instructions Other: Full liquid diet for three weeks until seen by Dr. Schroeder For Pain When You Leave the Hospital Use acetaminophen (Tylenol) as recommended on the bottle Call Your Doctor If You have persistent nausea/vomiting over 24 hours You have persistent or heavy bleeding Follow Up Appointments Follow-Up Appointment When: In 3 weeks Patient/Parents to call for appointment?: Yes Pam Schroeder MD [phone] 1 [facility] [address] [facility] [address] PCP Requested Referral Follow-Up Appointment When: In 2 weeks Patient/Parents to call for appointment?: Yes Jay Jay Meeks MD [phone] [address] [facility] [address] PCP Requested Referral Additional Provider to Provider Information: Principal Problem: Gastritis and duodenitis Resolved Problems: * No resolved hospital problems. * Treatment Team: Consulting: Nyla Gillette MD Transitions of Care Critical Issues: NEW BASELINE FOR PATIENT: new medications, modified diet of full liquids only LABS AND PROCEDURES PENDING AT DISCHARGE: No pending results. FOLLOW-UP APPOINTMENTS ALREADY SCHEDULED WITH A [facility]: No future appointments. ALLERGIES Allergen Reactions Cinnamon Swelling Codeine Unknown Pt does not want due to multiple family members allergic DISCHARGE MEDICATION: Medication List START taking these medications sucralfate 1 gram tablet Commonly known as: CARAFATE Take 1 tablet by mouth four times daily. CHANGE how you take these medications gabapentin 300 mg capsule Commonly known as: NEURONTIN Take 1 capsule by mouth three times daily for 30 days. What changed: additional instructions pantoprazole DR 40 mg tablet Commonly known as: PROTONIX Take 1 tablet by mouth two times a day. What changed: when to take this CONTINUE taking these medications cholecalciferol (Vitamin D3) 1,250 mcg (50,000 unit) Cap cap (more content not included)... Normal [facility] CNPNon 09-26-2023 CNPN Telephone ([place]) VINNIE OLIVAREZ ([id number]) 1985 M Date Time Provider Department 09/26/23 JAY JAY MEEKS During your visit today, we recorded the following information about you: Jay Jay Meeks MD 09/26/2023 1:28 PM Signed Seen at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 - sucralfate (CARAFATE) 1 gram tablet Take 1 tablet by mouth four times daily. - cholecalciferol, Vitamin D3, (VITAMIN D3) 1,250 mcg (50,000 unit) cap capsule Take 1 capsule by mouth one time a week for 12 doses. Transition to 2,000-4,000 units of Vitamin D OTC after completing 12 weeks - QUEtiapine (SEROQUEL) 200 mg tablet Take 200 mg by mouth twice daily. - FLUoxetine HCl (PROZAC) 40 mg capsule Take 1 capsule by mouth once daily. - OXcarbazepine (TRILEPTAL) 600 mg tablet 300mg qam 900mg qpm - gabapentin (NEURONTIN) 300 mg capsule Take 1 capsule by mouth three times daily for 30 days. - diphenhydrAMINE (BENADRYL) 25 mg capsule Take 25 mg by mouth at bedtime as needed. Problem List As Of Date 09/26/2023 Noted Resolved Back pain [M54.9] DVT (deep venous thrombosis) ([facility]) [I82.409] Psychiatric disorder [F99] TIFFANIE (obstructive sleep apnea) [G47.33] Calculus of kidney [N20.0] 12/21/2019 Essential hypertension [I10] Obesity, Class III, BMI >= 40 [E66.01] 08/29/2020 Left adrenal mass (HCC) [E27.8] 08/29/2020 GERD (gastroesophageal reflux disease) [K21.9] 06/16/2021 BPH (benign prostatic hyperplasia) [N40.0] 06/16/2021 Preop pulmonary/respiratory exam [Z01.811] 08/29/2021 Abnormal stress test [R94.39] 02/07/2022 Anemia [D64.9] 10/29/2022 Preop examination [Z01.818] 10/29/2022 Class 3 severe obesity due to excess calories w*11/06/2022 Abdominal pain [R10.9] 11/11/2022 Gastritis and duodenitis [K29.90] 09/26/2023 Encounter Status:Closed by JAY JAY MEEKS on 11/07/23 [facility] CONSULTon 09-26-2023 CONSULT HNO ID: [id number] Author: JAY JAY MEEKS MD Service: Urology Author Type: Physician Type: Consults Filed: 09/26/2023 13:27 Note Text: Urology Inpatient Consultation 09/25/2023 HISTORY OF PRESENT ILLNESS: The patient is a 38 year old male with hx of Shahab-en-Y gastric bypass unknown to us presenting with abdominal pain with PEHR w mesh 11/06/2022 presenting with abdominal pain. CT concerning for gastritis versus marginal ulcer and incidential 7mm proxinal right ureteral stone without hydronephrosis. Pt denies flank pain, fevers/chills. Reports prior ESWL many years ago. Plan for EGD with gen surg today. PAST MEDICAL HISTORY: PAST MEDICAL HISTORY Diagnosis Date Back pain extra vertebrae in my lower back. 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 Verdin EGD EGD WITH BIOPSY(S) 06/16/2021 6 cm paraesophageal hernia, Joni's erosions, duodenitis; Dr. Schroeder GASTRIC BYPASS HX 11/06/2022 Robotic (Xi) Shahab-en-Y gastric bypass LITHOTRIPSY Right 11/15/2020 kidney; Dr. Gillette PAST SURGICAL HISTORY OF wisdom teeth REPAIR PARAESOPHAGEAL HERNIA 11/06/2022 Robotic (Xi) Paraesophageal hernia repair with placement of Biologic mesh - 22 modifier due to large hernia size in setting of obese body habitus SCREENING COLONSCOPY NOT HIGH RISK TONSILLECTOMY AND ADENOIDECTOMY HX ALLERGIES: ALLERGIES Allergen Reactions Cinnamon Swelling Codeine Unknown Pt does not want due to multiple family members allergic HOME MEDICATIONS: (Not in a hospital admission) FAMILY HISTORY: Family History Problem Relation Age of Onset Heart Attack Mother Osteoporosis Mother COPD Mother Heart Father [place], CABG x 4 Social History: Tobacco Use: 1 packs/day, for 23 years. Quit 03/29/2021. Types: Cigarettes Alcohol Use: Yes (rarely) ROS: Constitutional: negative for chills and fevers HEENT: no blurry vision or eye redness Respiratory: negative for hemoptysis and shortness of breath Cardiovascular: negative for dyspnea and syncope Gastrointestinal: negative for jaundice, nausea and vomiting Genitourinary:negative for dysuria and hematuria Hematologic/lymphatic: negative for bleeding Integumentary: no new bruises or lesions Musculoskeletal:negative for muscle weakness Neurological: negative for coordination problems and seizures All other systems negative PHYSICAL EXAM: VITALS: 09/26/23 0400 09/26/23 0500 09/26/23 0604 09/26/23 0700 BP: 130/65 152/96 147/99 126/78 Pulse: (!) 52 57 (!) 54 (!) 46 Resp: 16 17 16 16 Temp: TempSrc: SpO2: 99% 100% 100% 99% Weight: Height: General: Alert, in no acute distress Head: Normocephalic, atraumatic Neck: supple, trachea is midline, no obvious masses Respiratory: normal effort, no audible wheezes Cardiovascular: regular pulse and no cyanosis Musculoskeletal: moving all extremities, normal tone Skin: warm and dry Psych: normal mood and affect, oriented Abdomen: soft, non distended, non tender, no organomegaly, no hernias : no flank pain or TTP DATA: LABS: BMP: . Glucose (mg/dL) Date Value 09/26/2023 75 08/11/2020 95 Potassium (mmol/L) Date Value 09/26/2023 3.8 08/11/2020 4.3 Sodium (mmol/L) Date Value 09/26/2023 141 08/11/2020 135 Chloride (mmol/L) Date Value 09/26/2023 108 08/11/2020 102 CO2 (mmol/L) Date Value 09/26/2023 26 08/11/2020 26 Creatinine (mg/dL) Date Value 09/26/2023 0.76 08/11/2020 0.84 BUN (mg/dL) Date Value 09/26/2023 10 08/11/2020 13 Anion Gap (mmol/L) Date Value 09/26/2023 7 08/11/2020 7 Calcium (mg/dL) Date Value 08/11/2020 9.1 Calcium, Total (mg/dL) Date Value 09/26/2023 8.5 CBC: Hemoglobin (g/dL) Date Value 09/26/2023 10.9 12/09/2013 10.0 Hematocrit (%) Date Value 09/26/2023 32.2 12/09/2013 33.7 WBC (k/uL) Date Value 09/26/2023 4.29 12/09/2013 6.72 Platelet Count (k/uL) Date Value 09/26/2023 153 12/09/2013 297 Urinalysis: Specific [place], Ur Date Value Ref Range Status 03/14/2013 1.025 1.001 - 1.030 Final Glucose, Urine Date Value Ref Range Status 03/14/2013 Negative Negative mg/dL Final Bilirubin, Urine Date Value Ref Range Status 03/14/2013 Negative Negative Final Ketones, Urine Date Value Ref Range Status 03/14/2013 Negative Negative Final Hemoglobin/Blood,Ur Date Value Ref Range Status 03/14/2013 Negative Ne (more content not included)... [facility] ED NOTEon 09-26-2023 ED NOTE HNO ID: [id number] Author: TULIO OLVERA RN Service: ? Author Type: Registered Nurse Type: ED Notes Filed: 09/26/2023 15:30 Note Text: Ride present at bedside. Discharge instructions, follow up recommendations and medications reviewed with patient. Pt advised to return to ED with worsening symptoms. Pt verbalizes understanding. Stable and ambulatory upon d/c [facility] ED NOTE HNO ID: [id number] Author: LINO DE LEÓN CT Service: Emergency Medicine Author Type: Clinical Personal Property Assessor Type: ED Notes Filed: 09/26/2023 19:29 Note Text: Emergency Services: ED Call Back Questionnaire SERVICE DATE: 09/25/2023 Are you feeling better? No Any questions about discharge instructions and follow-up care? No Were you able to make a follow up appointment? Yes Do you have any further questions? No Is there anything that we could have done differently to improve your ED visit? No SIGNATURE: CAITLIN Grady PATIENT NAME: Vinnie Olivarez DATE: September 26, 2023 TIME: 7:29 PM [facility] ED NOTE HNO ID: [id number] Author: TULIO OLVERA RN Service: ? Author Type: Registered Nurse Type: ED Notes Filed: 09/26/2023 15:27 Note Text: Assumed care of pt, pt discharged and awaiting ride Normal [facility] ED NOTE HNO ID: [id number] Author: PORSHA DUKE RN Service: ? Author Type: Registered Nurse Type: ED Notes Filed: 09/26/2023 13:48 Note Text: Bed: 28-ED Expected date: Expected time: Means of arrival: Comments: Pt @endo/coming back Normal [facility] ED NOTE HNO ID: [id number] Author: DARA SUNG RN Service: Emergency Medicine Author Type: Registered Nurse Type: ED Notes Filed: 09/26/2023 07:17 Note Text: Received report from Amita KHAN [facility] ED PROV NOTEon 09-26-2023 ED PROV NOTE HNO ID: [id number] Author: MIGUEL CRUZ MD Service: Emergency Medicine Author Type: Physician Type: ED Provider Notes Filed: 09/27/2023 03:13 Note Text: ED Provider Note Patient Name: Vinnie Olivarez : 1985 SERVICE DATE: 09/25/23 History Patient presents with: Abdominal Pain: Patient arrives as a transfer from [facility] for abdominal pain. Past bariatric surgery on 11/06/22. Has had nausea, vomiting and hematuria for the past two days. CT from [facility] showed possible ulcer. Patient is a 38-year-old male with a past medical history of gastric bypass surgery, adrenal mass status post adrenalectomy, nephrolithiasis presenting with abdominal pain and hematuria. Patient was transferred from an outside facility. Patient states abdominal pain started approximately 2 days ago. He states it is mainly in his upper abdominal region. He has had associated nausea and vomiting. No hematemesis. Patient admits to chronic constipation, no diarrhea. No blood in the stool. Patient has had hematuria, no dysuria. Not on blood thinners. At the outside facility, the patient had labs and imaging performed. He was sent here to be evaluated by surgery. 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 Verdin EGD EGD WITH BIOPSY(S) 06/16/2021 6 cm paraesophageal hernia, Joni's erosions, duodenitis; Dr. Schroeder GASTRIC BYPASS HX 11/06/2022 Robotic (Xi) Shahab-en-Y gastric bypass LITHOTRIPSY Right 11/15/2020 kidney; Dr. Gillette PAST SURGICAL HISTORY OF wisdom teeth REPAIR PARAESOPHAGEAL HERNIA 11/06/2022 Robotic (Xi) Paraesophageal hernia repair with placement of Biologic mesh - 22 modifier due to large hernia size in setting of obese body habitus SCREENING COLONSCOPY NOT HIGH RISK TONSILLECTOMY AND ADENOIDECTOMY HX FAMILY HISTORY Problem Relation Age of Onset Heart Attack Mother Osteoporosis Mother COPD Mother Heart Father [place], CABG x 4 Social History Tobacco Use Smoking status: Former Packs/day: 1.00 Years: 23.00 Additional pack years: 0.00 Total pack years: 23.00 Types: Cigarettes Quit date: 03/29/2021 Years since quittin.4 Smokeless tobacco: Never Vaping Use Vaping Use: current everyday user Substances: THC, CBD, Flavoring Substance and Sexual Activity Alcohol use: Yes Comment: rarely Drug use: Yes Types: Marijuana Comment: Daily (vape) (medical card) Sexual activity: Yes Partners: Female ALLERGIES Allergen Reactions Cinnamon Swelling Codeine Unknown Pt does not want due to multiple family members allergic Review of Systems Constitutional: Positive for chills. Negative for fatigue and fever. Respiratory: Negative for shortness of breath. Cardiovascular: Negative for chest pain and leg swelling. Gastrointestinal: Positive for abdominal pain, constipation, nausea and vomiting. Negative for diarrhea. Genitourinary: Positive for hematuria. Negative for dysuria. Neurological: Negative for light-headedness. Psychiatric/Behavioral: Negative for confusion. Physical Exam Vitals [09/25/23 2358] BP Pulse Temp Temp src Resp SpO2 Weight Height (!) 172/143 55 36.7 ?C (98.1 ?F) Oral 16 95 % 91.6 kg (201 lb 15.1 oz) 1.803 m (5' 11) Physical Exam Vitals and nursing note reviewed. Constitutional: General: He is not in acute distress. HENT: Head: Normocephalic and atraumatic. Cardiovascular: Rate and Rhythm: Normal rate and regular rhythm. Heart sounds: Normal heart sounds. No murmur heard. No friction rub. No gallop. Pulmonary: Effort: Pulmonary effort is normal. Breath sounds: Normal breath sounds. No wheezing, rhonchi or rales. Abdominal: General: Abdomen is flat. There is no distension. Palpations: Abdomen is soft. Tenderness: There is abdominal tenderness in the right upper quadrant, epigastric area, left upper quadrant and left lower quadrant. There is no guarding or rebound. Genitourinary: Comments: exam chaperoned by Elzbieta, no testicular tenderness or swelling. No obvious inguinal hernia felt on exam. No penile lesions or discharge. Musculoskeletal: Right lower leg: No edema. Left lower leg: No edema. Skin: General: Skin is warm and dry. Neurological: General: No focal deficit present. (more content not included)... [facility] [facility] HISTORY PHYSICALon HISTORY PHYSICAL HNO ID: [id number] Author: PMA SCHROEDER MD Service: General Surgery Author Type: Resident Type: H&P Filed: 09/26/2023 12:39 Note Text: Attestation signed by Pam Schroeder MD at 09/26/2023 12:39 PM (Updated) I saw and evaluated/examined the patient with the resident and personally participated in the antonio components. I have reviewed the resident's note and discussed the case and management of the patient's care with the resident. I agree with the above assessment and plan unless otherwise noted below. Plan of care discussed with: Provider, RN, Patient. - I have reviewed the patient's workup and imaging and history. He has been lost to follow up from the bariatric clinic since his 3 month surgical follow up. He cites social/economic concerns as the reason for not following up sooner. - Given CT scan findings, I am concerned for possible marginal ulcer. In addition, his smokes around him and he cites exposure to SHS - most likely the cause. Will perform EGD today and start treatment accordingly. 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 Schroeder) who presents to the ED with complaints of abdominal pain. General surgery has been consulted for concerns of gastritis versus marginal ulcer. Patient states that couple days ago he started experiencing dark urine and shortly afterwards started experiencing intermittent mid abdominal pain. He denies any flank pain. He denies his pain feeling like kidney stones in the past. He states that his mid abdominal pain has been getting worse which is why he presented to the ED. His pain is worse with moving. He denies any relieving factors to his pain. Endorses nausea and vomiting. Patient states that since his last follow-up with Dr. Schroeder he has been able to tolerate regular foods. Denies any recent smoking history. Denies any history of alcohol use. Patient states that he is passing gas and having bowel function. He rates his abdominal pain as 8 out of 10. Patient endorses recent ibuprofen use however states that this has only been for couple days. No complaints of fevers or chills. Patient states that he has not had an EGD since his surgery. He denies any history of ulcers. Outside imaging of CT abdomen pelvis shows thickening at GJ junction as well as duodenum concerning for gastritis versus marginal ulcer. WBC 6.1 hemoglobin 12.4. FUNCTIONAL STATUS: Independent PAST MEDICAL HISTORY Diagnosis Date Back pain extra vertebrae in my lower back. 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 Verdin EGD EGD WITH BIOPSY(S) 06/16/2021 6 cm paraesophageal hernia, Joni's erosions, duodenitis; Dr. Schroeder GASTRIC BYPASS HX 11/06/2022 Robotic (Xi) Shahab-en-Y gastric bypass LITHOTRIPSY Right 11/15/2020 kidney; Dr. Gillette PAST SURGICAL HISTORY OF wisdom teeth REPAIR PARAESOPHAGEAL HERNIA 11/06/2022 Robotic (Xi) Paraesophageal hernia repair with placement of Biologic mesh - 22 modifier due to large hernia size in setting of obese body habitus SCREENING COLONSCOPY NOT HIGH RISK TONSILLECTOMY AND ADENOIDECTOMY HX FAMILY HISTORY Problem Relation Age of Onset Heart Attack Mother Osteoporosis Mother COPD Mother Heart Father AR, CABG x 4 Social History Tobacco Use Smoking status: Former Packs/day: 1.00 Years: 23.00 Additional pack years: 0.00 Total pack years: 23.00 Types: Cigarettes Quit date: 03/29/2021 Years since quittin.4 Smokeless tobacco: Never Vaping Use Vaping Use: current everyday user Substances: THC, CBD, Flavoring Substance Use Topics Alcohol use: Yes Comment: rarely Drug use: Yes Types: Marijuana Comment: Daily (vape) (medical card) (Not in a hospital admission) ALLERGIES Allergen Reactions Cinnamon Swelling Codeine Unknown Pt does not want due to multiple family members allergic COMPLETE REVIEW OF SYSTEMS: GENERAL: No weight loss, malaise (more content not included)... Normal [facility] Magnesium SerPl-mCncon 09-25 Magnesium [Mass/Vol] 1.6 mg/dL Low 1.7-2.3 [facility] Comment on above: Order Comment: Speci men Type: BLOOD SPECIMEN Ordering Facility: [facility] Address: [address] [place] [address] Performed By: #### 1 9123-9, 2777-1, 89835-4 #### [facility] CLIA [id number] [address] Phosphate SerPl-mCncon 09-25 Phosphate [Mass/Vol] 3.6 mg/dL Normal 2.7-4.8 [facility] Comment on above: Order Comment: Speci men Type: BLOOD SPECIMEN Ordering Facility: [facility] Address: [address] [place] [address] Performed By: #### 1 9123-9, 2777-1, 14106-7 #### [facility] CLIA [id number] [address] [place] [address] SURGICAL PATHOLOGYon 024 CASE REPORT Normal [facility] Comment on above: Order Comment: Speci men Type: TISSUE SPECIMEN Ordering Facility: [facility] Address: [address] [place] [address] Result Comment: Surg ical Pathology Report Case: [id number] Authorizing Provider: Pam Schroeder MD Collected: 09/26/2023 12:34 PM Ordering Location: [facility] Received: 09/26/2023 02:29 PM Pathologist: Tyler Huber MD Specimen: POUCH BIOPSY, gastric pouch biopsy Performed By: #### S #### [facility] CLIA [id number] [address] [place] [address] CLINICAL HISTORY Normal [facility] Comment on above: Order Comment: Speci men Type: TISSUE SPECIMEN Ordering Facility: [facility] Address: [address] [place] [address] Result Comment: Pre- op diagnosis: Gastritis and duodenitis [K29.90] Performed By: #### S #### [facility] CLIA [id number] [address] [place] [address] FINAL DIAGNOSIS Normal [facility] Comment on above: Order Comment: Speci men Type: TISSUE SPECIMEN Ordering Facility: [facility] Address: [address] [place] [address] Result Comment: Dian bourne pouch, biopsy: - No pathologic abnormalities. Performed By: #### S #### [facility] CLIA [id number] [address] [place] [address] FINAL PERFORMING LAB Normal [facility] Comment on above: Order Comment: Speci men Type: TISSUE SPECIMEN Ordering Facility: [facility] Address: [address] [place] [address] Result Comment: Diag nostic interpretation performed at [facility], [address] [place] [address] CLIA# [id number] Reed Maker: Tyler Huber M.D. Performed By: #### S #### [facility] CLIA [id number] [address] [place] [address] GROSS DESCRIPTION A. POUCH BIOPSY Normal [facility] Comment on above: Order Comment: Speci men Type: TISSUE SPECIMEN Ordering Facility: [facility] Address: [address] [place] [address] Result Comment: Rece ived in formalin labeled gastric pouch biopsy are multiple pieces of salcido, soft tissue aggregating to 1.6 x 0.2 x 0.2 cm. Totally submitted in one cassette. Gross examination performed at [facility], [address] [place] [address] CLIA# [id number] [facility] September 26, 2023 3:09 PM Performed By: #### S #### [facility] CLIA [id number] [address] [place] [address] Upper GI endoscopyon 09-25-2 024 Upper GI endoscopy [facility] Gastrointestinal Endoscopy Patient Name: Vinnie Olivarez Procedure Date: 09/26/2023 12:16 PM Date of : 1985 Admit Type: Inpatient Room: floor room Gender: Male Note Status: Finalized Attending MD: Pam Schroeder MD, [id number] Procedure: Upper GI endoscopy Indications: Epigastric abdominal pain, Abnormal CT of the GI tract Providers: Pam Schroeder MD Patient Profile: Refer to note in patient chart for documentation of history and physical. Patient has symptoms of acute epigastric abdominal pain. He is status post laparoscopic gastric bypass within the past year. Body Mass Index: 28. Referring Physician: Pam Schroeder MD (Referring MD) Medicines: Monitored Anesthesia Care Complications: No immediate complications. Procedure: Pre-Anesthesia Assessment: - Prior to the procedure, a History and Physical was performed, and patient medications and allergies were reviewed. The patient's tolerance of previous anesthesia was also reviewed. The risks and benefits of the procedure and the sedation options and risks were discussed with the patient. All questions were answered, and informed consent was obtained. Prior Anticoagulants: The patient has taken no anticoagulant or antiplatelet agents. ASA Grade Assessment: III - A patient with severe systemic disease. After reviewing the risks and benefits, the patient was deemed in satisfactory condition to undergo the procedure. After obtaining informed consent, the endoscope was passed under direct vision. Throughout the procedure, the patient's blood pressure, pulse, and oxygen saturations were monitored continuously. The Endoscope was introduced through the mouth, and advanced to the afferent and efferent jejunal loops. I was present and participated during the entire procedure, including non-antonio portions, and during the administration and monitoring of Moderate Sedation. The upper GI endoscopy was accomplished without difficulty. The patient tolerated the procedure well. Moderate Sedation: Exam was performed under monitored anesthesia care (MAC) Findings: The examined esophagus was normal. Evidence of a gastric bypass was found. A gastric pouch with a normal size was found. The staple line appeared intact. The gastrojejunal anastomosis was characterized by ulceration. This was traversed. The fybnr-tj-xkrncru limb was characterized by healthy appearing mucosa. The zquvykhf-uq-vlozrga limb was not examined as it could not be found. The excluded stomach was not examined as it could not be found. This was biopsied with a cold forceps for histology. Estimated blood loss was minimal. There was evidence of a widely patent previous surgical anastomosis in the afferent jejunal loop. This was characterized by ulceration. There was evidence of a widely patent previous surgical anastomosis in the efferent jejunal loop. This was characterized by healthy appearing mucosa. Evidence of a gastric bypass was found. A gastric pouch was found. The xqlotfst-du-jesfqjs limb was not examined as it could not be found. Biopsies were taken with a cold forceps for histology. Estimated blood loss was minimal. Estimated Blood Loss: Estimated blood loss: none. Impression: - Normal esophagus. - Gastric bypass with a normal-sized pouch which measures 6 cm in size (40-46 cm) and intact staple line. Gastrojejunal anastomosis characterized by ulceration on the jejunal aspect of the gastrojejunal anastomosis. The ulceration demonstrates no sign of bleeding or stigmata of recent bleeding. The ulceration is present on the posterior candy cane side of the anastomosis. Gastric pouch Biopsied with cold biopsy forceps. - Widely patent previous surgical anastomosis, characterized by ulceration was found in the jejunum on the candy cane side of anastomosis. - Widely patent previous surgical anastomosis, characterized by healthy appearing mucosa was found in the jejunum. Recommendation: - Return patient to hospital [facility] for possible discharge same day. - Full liquid diet for 3 weeks. - Continue present medications. - Await pathology results. - Return to my office in 3 weeks. - The patient is not currently taking anticoagulant or antiplatelet agents. 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 Normal [facility] Urinalysis complete panel (U )on 09-26-2023 Bilirubin Ql (U) Negative Normal Negative [facility] Comment on above: Order Comment: Speci men Type: URINE SPECIMEN Ordering Facility: [facility] Address: [address] [place] [address] Performed By: #### 2 4356-8 #### [facility] CLIA [id number] [address] Clarity (Unsp spec) Clear Normal Clear [facility] Comment on above: Order Comment: Speci men Type: URINE SPECIMEN Ordering Facility: [facility] Address: [address] [place] [address] Performed By: #### 2 4356-8 #### [facility] CLIA [id number] [address] Color (U) Colorless Normal yellow [facility] Comment on above: Order Comment: Speci men Type: URINE SPECIMEN Ordering Facility: [facility] Address: [address] [place] [address] Performed By: #### 2 4356-8 #### [facility] CLIA [id number] [address] Glucose Test strip (U) [Mass/Vol] Negative Normal Trace, Negative [facility] Comment on above: Order Comment: Speci men Type: URINE SPECIMEN Ordering Facility: [facility] Address: [address] [place] [address] Performed By: #### 2 4356-8 #### [facility] CLIA [id number] [address] Hemoglobin Ql (U) 3+ Abnormal Negative, Trace [facility] Comment on above: Order Comment: Speci men Type: URINE SPECIMEN Ordering Facility: [facility] Address: [address] [place] [address] Performed By: #### 2 4356-8 #### [facility] CLIA [id number] [address] [facility] Ketones Ql (U) Negative Normal Negative, Trace [facility] Comment on above: Order Comment: Speci men Type: URINE SPECIMEN Ordering Facility: [facility] Address: [address] [place] [address] Performed By: #### 2 4356-8 #### [facility] CLIA [id number] [address] [facility] Leukocyte esterase Test strip Ql (U) Negative Normal Negative, 25 Renée/uL [facility] Comment on above: Order Comment: Speci men Type: URINE SPECIMEN Ordering Facility: [facility] Address: [address] [place] [address] Performed By: #### 2 4356-8 #### [facility] CLIA [id number] [address] [place] Nitrite Ql (U) Negative Normal Negative [facility] Comment on above: Order Comment: Speci men Type: URINE SPECIMEN Ordering Facility: [facility] Address: [address] [place] [address] Performed By: #### 2 4356-8 #### [facility] CLIA [id number] [address] pH (U) 7.0 [pH] Normal 5.0-8.0 [facility] Comment on above: Order Comment: Speci men Type: URINE SPECIMEN Ordering Facility: [facility] Address: [address] [place] [address] Performed By: #### 2 4356-8 #### [facility] CLIA [id number] [address] [place] [facility] Protein (U) [Mass/Vol] Negative Normal Trace , Negative [facility] Comment on above: Order Comment: Speci men Type: URINE SPECIMEN Ordering Facility: [facility] Address: [address] [place] [address] Performed By: #### 2 4356-8 #### [facility] CLIA [id number] [address] [place] [facility] RBC LM.HPF (Urine sed) [#/Area] /[HPF] Abnormal 0-3 /HPF [facility] Comment on above: Order Comment: Speci men Type: URINE SPECIMEN Ordering Facility: [facility] Address: [address] [place] [address] Performed By: #### 2 4356-8 #### [facility] CLIA [id number] [address] Specific gravity (U) [Rel density] 1.008 Normal 1.005-1.03 0 [facility] Comment on above: Order Comment: Speci men Type: URINE SPECIMEN Ordering Facility: [facility] Address: [address] [place] [address] Performed By: #### 2 4356-8 #### [facility] CLIA [id number] [address] Urobilinogen Ql (U) Normal Normal Normal [facility] Comment on above: Order Comment: Speci men Type: URINE SPECIMEN Ordering Facility: [facility] Address: [address] [place] [address] Performed By: #### 2 4356-8 #### [facility] CLIA [id number] [address] WBC LM.HPF (Urine sed) [#/Area] 6-10 /HPF Abnormal 0-5 /HPF [facility] Comment on above: Order Comment: Speci men Type: URINE SPECIMEN Ordering Facility: [facility] Address: [address] [place] [address] Performed By: #### 2 4356-8 #### [facility] CLIA [id number] [address] XR ABDOMEN 1V SUPINEon 09-25 XR ABDOMEN 1V SUPINE * * *Final Report* * * DATE OF EXAM: Sep 26 2023 10:49AM AKX 5289 - XR ABDOMEN 1V SUPINE / PROCEDURE REASON: Kidney stone suspected * * * * Physician Interpretation * * * * SUPINE ABDOMEN: CLINICAL INDICATION: 38-year-old male with abdominal pain. Prior Shahab-en-Y gastric bypass. History of nephrolithiasis. COMPARISON: OSH CT abdomen and pelvis 09/25/2023, upper GI with small bowel series 11/12/2022, OSH CT abdomen and pelvis 11/11/2022, and abdomen radiographs 11/06/2022 and 11/15/2020. Supine KUB type abdomen and AP transverse pelvis radiographs are submitted. The subdiaphragmatic abdomen is not included. Paucity of small bowel air with possible nondistended air-filled small bowel loops left upper abdomen. Nondistended colon with residual bowel contrast material within the ascending colon and distal sigmoid colon. A 7 mm calculus overlies the right proximal lateral psoas margin at the L2-3 level in the expected location of the renal pelvis. Multiple pelvic calcifications, presumed phleboliths. Left upper quadrant abdomen suture material. No acute bony abnormality. IMPRESSION: Nonobstructive bowel gas pattern. Residual bowel contrast material within the nondistended ascending and distal colon. 7 mm calculus in the expected location of the right renal pelvis. Integration Software Developer: [facility] Transcribe Date/Time: Sep 26 2023 11:09A Dictated by : KEITH OGLESBY MD This examination was interpreted and the report reviewed and electronically signed by: KEITH OGLESBY MD on Sep 26 2023 11:19AM EST [id number] Normal [facility] AUTO DIFFon 09-25-2023 Baso Count 0.05 x1000 Normal 0.00-0.20 [facility] Comment on above: Performed By: #### 1 94666, 708004, 495814, [id number] ####[facility] [address] [place] [address] Medical Director: Fredy Zapata MD Basos % 0.8 % Normal [facility] Comment on above: Performed By: #### 1 29882, 886888, 269865, 8451794 ####[facility] [address] [place] [address] Medical Director: Fredy Zapata MD Eos Count 0.10 x1000 Normal 0.00-0.50 [facility] Comment on above: Performed By: #### 1 62241, 218267, 437015, 8573220 ####[facility] [address] [place] [address] Medical Director: Fredy Zapata MD Eosinophils/100 WBC (Bld) 1.7 % Normal [facility] Comment on above: Performed By: #### 1 73674, 010477, 552060, 9873958 ####[facility] [address] [place] [address] Medical Director: Fredy Zapata MD Lymph Count 1.71 x1000 Normal 1.20-4.80 [facility] Comment on above: Performed By: #### 1 19032, 441026, 539411, 2918476 ####[facility] [address] [place] [address] Medical Director: Fredy Zapata MD Lymphocytes/100 WBC (Bld) 28.0 % Normal [facility] Comment on above: Performed By: #### 1 14174, 091016, 582576, 9970244 ####[facility] [address] [place] [address] Medical Director: Fredy Zapata MD [place] Count 0.49 x1000 Normal 0.10-1.00 [facility] Comment on above: Performed By: #### 1 12635, 941701, 667396, 5299358 ####[facility] [address] [place] [address] Medical Director: Fredy Zapata MD Monocytes/100 WBC (Bld) 8.0 % Normal [facility] Comment on above: Performed By: #### 1 91825, 303220, 905319, 8086201 ####[facility] [address] [place] [address] Medical Director: Fredy Zapata MD Neutrophil Count (ANC) 3.76 x1000 Normal 1.40-8.80 [facility] Comment on above: Performed By: #### 1 87799, 914797, 264973, 9360524 ####[facility] [address] [place] [address] Medical Director: Fredy Zapata MD Neutrophils/100 WBC (Bld) 61.6 % Normal [facility] Comment on above: Performed By: #### 1 99420, 569843, 934009, 6076315 ####[facility] [address] [place] [address] Medical Director: Fredy Zapata MD COMPMETAon 09-25-2023 Albumin [Mass/Vol] 3.6 g/dL Normal 3.4-5.0 [facility] Comment on above: Performed By: #### 1 55059, 848064, 532345, 2982252 ####[facility] [address] [place] [address] Medical Director: Fredy Zapata MD Albumin/Globulin [Mass ratio] 1.3 {ratio} Normal [facility] Comment on above: Performed By: #### 1 87733, 070795, 987708, 2212442 ####[facility] [address] [place] [id number] Medical Director: Fredy Zapata MD Alk Phos 113 unit/L Normal 45-117 [facility] Comment on above: Performed By: #### 1 33804, 257104, 507460, 9285215 ####[facility] [address] [place] [address] Medical Director: Fredy Zapata MD Bilirubin [Mass/Vol] 0.30 mg/dL Normal 0.30-1.20 [facility] Comment on above: Result Comment: Use of this assay is not recommended for patients undergoing treatment with eltrombopag due to the potential for falsely elevated results. Performed By: #### 1 32351, 182202, 794839, 6611388 ####[facility] [address] [place] [address] Medical Director: Fredy Zapata MD Calcium [Mass/Vol] 9.1 mg/dL Normal 8.7-10.4 [facility] Comment on above: Performed By: #### 1 08924, 243728, 459771, 7526098 ####[facility] [address] [place] [address] Medical Director: Fredy Zapata MD Chloride [Moles/Vol] 111 mmol/L High 98-107 [facility] Comment on above: Performed By: #### 1 02271, 311791, 367346, 7820587 ####[facility] [address] [place] [address] Medical Director: Fredy Zapata MD CO2 [Moles/Vol] 26.0 mmol/L Normal 20.0-31.0 [facility] Comment on above: Performed By: #### 1 47891, 428196, [id number], [id number] ####[facility] [address] [place] [address] Medical Director: Fredy Zapata MD Creatinine [Mass/Vol] 0.8 mg/dL Normal 0.6-1.1 [facility] Comment on above: Performed By: #### 1 39207, 035419, 088820, [id number] ####[facility] [address] [place] [address] Medical Director: Fredy Zapata MD GFR AA >60 Normal [facility] Comment on above: Result Comment: Afri can Martiniquais GFR Calc Medical judgement is necessary to interpret GFR. The calculated GFR may not accurately reflect renal status in patients >70 years, women, acutely ill hospitalized patients and patients with acute renal failure or known renal disease. The MDRD GFR formula is valid only for adults greater than 18 years of age. Note: Creatinine clearance (not GFR) should be used for drug dosing. Performed By: #### 1 98872, 969506, 889823, [id number] ####[facility] [address] [place], [place] [id number]) [phone] Director: Fredy Zapata MD Globulin (S) [Mass/Vol] 2.8 g/dL Normal [facility] Comment on above: Performed By: #### 1 60566, 977758, 289461, [id number] ####[facility] [address] [place] [address] Medical Director: Fredy Zapata MD Glomerular Filtration Rate >60 Normal [facility] Comment on above: Result Comment: Non- GFR Calc Medical judgement is necessary to interpret GFR. The calculated GFR may not accurately reflect renal status in patients >70 years, women, acutely ill hospitalized patients and patients with acute renal failure or known renal disease. The MDRD GFR formula is valid only for adults greater than 18 years of age. Note: Creatinine clearance (not GFR) should be used for drug dosing. Performed By: #### 1 27780, 707268, 407233, [id number] ####[facility] [address] [place] [address] Medical Director: Fredy Zapata MD Glucose [Mass/Vol] 84 mg/dL Normal 74-106 [facility] Comment on above: Performed By: #### 1 94582, 334360, 613032, [id number] ####[facility] [address] [place] [address] Medical Director: Fredy Zapata MD GOT 15 unit/L Normal 15-37 [facility] Comment on above: Performed By: #### 1 25912, 543203, 865326, [id number] ####[facility] [address] [place] [address] Medical Director: Fredy Zapata MD GPT 7 unit/L Low 10-49 [facility] Comment on above: Performed By: #### 1 17032, 806599, 429975, 1335828 ####[facility] [address] [place] [address] Medical Director: Fredy Zapata MD Osmolality [Osmolality] 284 mosm/kg Normal 275-295 [facility] Comment on above: Performed By: #### 1 05320, 483352, 492933, 0605290 ####[facility] [address] [place] [address] Medical Director: Fredy Zapata MD Potassium [Moles/Vol] 4.3 mmol/L Normal 3.5-5.1 [facility] Comment on above: Performed By: #### 1 09067, 809041, 510922, 9798212 ####[facility] [address] [place] [address] Medical Director: Fredy Zapata MD Protein [Mass/Vol] 6.4 g/dL Normal 5.7-8.2 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 Comment on above: Performed By: #### 1 06550, 223079, 900298, 5566698 ####[facility] [address] [place] [address] Medical Director: Fredy Zapata MD Urea nitrogen [Mass/Vol] 12 mg/dL Normal 9-23 [facility] Comment on above: Result Comment: - Ve nipuncture should occur prior to N-Acetyl Cysteine (NAC) or Metamizole (Sulpyrine) administration due to the potential for falsely depressed results. - Blood samples from some patients with monoclonal gammopathies may produce falsely elevated results Performed By: #### 1 56176, 532305, 789904, 8856018 ####[facility] [address] [place] [address] Medical Director: Fredy Zapata MD Urea nitrogen/Creatinine [Mass ratio] 15.0 mg/mg Normal [facility] Comment on above: Performed By: #### 1 79254, 481309, 387499, 7859027 ####[facility] [address] [place] [address] Medical Director: Fredy Zapata MD CT ABD PELVIS W IV CONTRASTo n 09-25-2023 CT ABD PELVIS W IV CONTRAST CT ABDOMEN PELVIS WITH IV CONTRAST CLINICAL STATEMENT: TENDERNESS. TECHNOLOGIST NOTES: WHAT SYMPTOMS ARE YOU EXPERIENCING?; abdominal pain. hx of gastric bypass sx. 100 ml isovue 300 COMPARISON: 01/29/2015 TECHNIQUE: Axial images were obtained from the lung bases through the pubic symphysis after the administration of IV contrast. Coronal and sagittal reformatted images were generated from the axial dataset. This exam was performed according to the departmental dose-optimization program which includes automated exposure control, adjustment of the mA and/or kV according to patient size and/or use of iterative reconstruction technique. FINDINGS: Limitations: None. Lower chest: Lung bases are clear. Visualized heart is unremarkable. Liver: Normal. Gallbladder: Normal. Biliary ducts: Nondilated. Pancreas: Normal. Spleen: Normal. Adrenal glands: Normal. Right kidney and ureter: Normal. Multiple renal stones measuring up to 5 mm. No hydronephrosis. Ureter is normal in caliber. Left kidney and ureter: Normal. No hydronephrosis. Ureter is normal in caliber. Urinary bladder: Partially distended without focal wall thickening. Reproductive: Unremarkable. Gastrointestinal tract: No obstruction. Status post gastric bypass with small to moderate amount of gas and fluid in the excluded stomach, although no oral contrast visualized. Oral contrast visualized within the Shahab limb traversing the jejunostomy. Mild stranding at the gastrojejunostomy center on a possible outpouching with surrounding rounded lymph nodes. Appendix: Normal. Peritoneum and mesentery: No free fluid, fluid collection, or free air. Lymph nodes: Mildly prominent mesenteric lymph node in the central to upper abdomen with mild fat stranding. Vascular: Aorta is normal in caliber. Portal and splenic veins are patent. Musculoskeletal: Soft tissues are unremarkable. No acute or suspicious osseous abnormality. Mild degenerative changes of the spine. IMPRESSION: 1. Status post gastric bypass with mild stranding at the gastrojejunostomy centered around possible outpouching with surrounding rounded lymph nodes. Findings could suggest marginal ulcer or gastritis. 2. Small to moderate amount of gas and fluid in the excluded stomach of the gastric bypass which may be from retrograde/reflux of enteric contents versus gastrogastric fistula, although no positive oral contrast visualized within the excluded stomach. 3. Nonspecific mildly prominent central mesenteric lymph node. 4. Right nephrolithiasis. Electronically signed by: Rj Chahal DO 09/25/2023 05:35 PM EDT Normal [facility] Comment on above: Order Comment: one c up oral contrast Result Comment: Tech nologist: TMP,SK,CISCO Dictated By: RJ CHAHAL DO Signed By: RJ CHAHAL DO Signed Out: 09/25/23 17:35:53 ED Adult Data - Texton 09-24 ED Adult Data - Text ED Adult Data Enter ed On: 09/25/2023 15:39 EDT Performed On: 09/25/2023 15:30 EDT by Martha Butler RN Arrival Information Information Given by : Patient Referral Source ED : Home [place] Mode of Arrival : Car / Walk-In Airway : Normal Breathing : Normal Circulation : Normal Martha Butler RN - 09/25/2023 15:38 EDT Screening-General Meds Triage : NA Accept Blood Products if Necessary : Yes Immunizations Current : Unknown Last Tetanus : Unknown Currently or : Not Applicable Martha Butler RN - 09/25/2023 15:38 EDT Depression Screening Patient able to verbalize? : Yes Feeling Down, Depressed, Hopeless : Not at all Little Interest - Pleasure in Activities : Not at all Initial Depression Screen Score : 0 Depression Screening Score 0 : No IP Pt being evaluated or treated for BH conditions : No Martha Butler RN - 09/25/2023 15:38 EDT Screening-Safety Abuse/Violence Concerns? : Patient denies Does the patient have a medically restricted extremity? : No Martha Butler RN - 09/25/2023 15:38 EDT Problem List Problem List obtained from : Patient Martha Butler RN - 09/25/2023 15:38 EDT (As Of: 09/25/2023 15:39:27 EDT) Problems(Active) At risk for falls (SNOMED CT :484841027 ) Name of Problem: At risk for falls ; Recorder: SYSTEM; Confirmation: Confirmed ; Classification: Nursing ; Code: 228680399 ; Last Updated: 01/29/2015 23:01 EDT ; Life Cycle Date: 01/29/2015 ; Life Cycle Status: Active ; Vocabulary: SNOMED CT ; Comments: 01/29/2015 23:01 - SYSTEM Problem added automatically by system based on documentation of a admission to the hospital. Bipolar 1 disorder (SNOMED CT :5415020330 ) Name of Problem: Bipolar 1 disorder ; Recorder: Awilda Tomas RN; Confirmation: Confirmed ; Classification: Patient/Family Stated ; Code: 2701217074 ; Contributor System: Sedicii ; Last Updated: 12/20/2014 17:18 EDT ; Life Cycle Date: 12/20/2014 ; Life Cycle Status: Active ; Vocabulary: SNOMED CT Kidney stone (SNOMED CT :569766702 ) Name of Problem: Kidney stone ; Recorder: Flor Lubin RN; Confirmation: Confirmed ; Classification: Patient/Family Stated ; Code: 713827427 ; Contributor System: Sedicii ; Last Updated: 01/29/2015 20:44 EDT ; Life Cycle Date: 01/29/2015 ; Life Cycle Status: Active ; Vocabulary: SNOMED CT Knowledge deficit (SNOMED CT :8576919558 ) Name of Problem: Knowledge deficit ; Recorder: SYSTEM; Confirmation: Confirmed ; Classification: Nursing ; Code: 8465264686 ; Last Updated: 08/25/2013 17:58 EST ; Life Cycle Date: 11/05/2011 ; Life Cycle Status: Active ; Vocabulary: SNOMED CT ; Comments: 11/05/2011 19:46 - SYSTEM Problem added automatically by system based on learning needs addressed on emergency department admission. Diagnoses(Active) Abdominal pain Date: 09/25/2023 ; Diagnosis Type: Reason For Visit ; Confirmation: Confirmed ; Clinical Dx: Abdominal pain ; Classification: Medical ; Clinical Service: Non-Specified ; Code: PNED ; Probability: 0 ; Diagnosis Code: [id number] Hematuria Date: 09/25/2023 ; Diagnosis Type: Reason For Visit ; Confirmation: Confirmed ; Clinical Dx: Hematuria ; Classification: Medical ; Clinical Service: Non-Specified ; Code: PNED ; Probability: 0 ; Diagnosis Code: [id number] Procedure History ED Devices Present on Arrival To ED : None Urinary Catheter Present on Admit to ED : Martha Stevenson RN - 09/25/2023 15:38 EDT - Procedure History (As Of: 09/25/2023 15:39:27 EDT) Anesthesia Minutes: 0 ; Procedure Name: Vasectomy. ; Procedure Minutes: 0 ; Last Reviewed Dt/Tm: 09/25/2023 15:39:19 EDT Procedure Dt/Tm: 02/02/2015 11:47:00 EDT ; Location: Endo ; Provider: QUINCY FRANCIS MD; Anesthesia Type: MAC ; : ERYN RUSSO MD; Anesthesia Minutes: 18 ; Procedure Name: EGD with MAC (None) ; Procedure Minutes: 12 ; Comments: 02/02/2015 12:01 EDT - Ignacia Galeana RN auto-populated from documented surgical case ; Clinical Service: Surgery ; Last Reviewed Dt/Tm: 09/25/2023 15:39:19 EDT Procedure Dt/Tm: 02/01/2015 14:47:00 EDT ; Location: Endo ; Provider: QUINCY FRANCIS MD; Anesthesia Type: MAC ; : SANDRA MENESES MD; Anesthesia Minutes: 36 ; Procedure Name: Colonoscopy with MAC (None) ; Procedure Minutes: 25 ; Comments: 02/01/2015 15:13 EDT - Rufina Chu RN auto-populated from documented surgical case ; Clinical Service: Surgery ; Last Reviewed Dt/Tm: 09/25/2023 15:39:19 EDT Social History Does pt have any alcohol,drugs or tobacco : No Do you consume Alcohol : No Social History obtained from : Patient Martha Butler RN - 09/25/2023 15:38 EDT Social History (As Of: 09/25/2023 15:39:27 EDT) Alcohol: Denies Alcohol Use (Last Updated: 12/20/2014 17:19:17 EDT by Awilda Tomas RN ) Tobacco: Current every day smoker, Cigarettes, 1.0 per day. (Last Updated: 12/20/2014 17:19:32 EDT by Awilda Tomas RN) Substance Abuse: Denies Subst (more content not included)... Normal [facility] ED Discharge Educationon ED Discharge Education Normal So [facility] ED Emergency Severity Index Adult-Texton 09-25-2023 ED Emergency Severity Index Adult-Text DOMI - Adult Entered On: 09/25/2023 15:37 EDT Performed On: 09/25/2023 15:37 EDT by Martha Butler RN DOMI DCP GENERIC CODE Visit Reason : abd pain, hematuria x 3days Tracking Triage Date/Time : 09/25/2023 15:37 EDT Tracking Reg Status : Requested Tracking Acuity : 3H-Urgent Tracking Group : [facility] Tracking Martha Butler RN - 09/25/2023 15:37 EDT Normal [facility] ED NOTEon 09-25-2023 ED NOTE HNO ID: [id number] Author: PITO UTRPIN RN Service: ? Author Type: Registered Nurse Type: ED Notes Filed: 09/25/2023 23:55 Note Text: Bed: 28-ED Expected date: Expected time: Means of arrival: Comments: SQUAD Normal [facility] ED Nrsing Adlt Triage Sep Sc rning - Texton 09-25-2023 ED Nrsing Adlt Triage Sep Scrning - Text ED Nursing Adult Triage Sepsis Screening Tool Entered On: 09/25/2023 15:38 EDT Performed On: 09/25/2023 15:38 EDT by Martha Butler RN Adult Sepsis Screening Sepsis Infection Screening ED : Yes Sepsis Vitals Screening ED : None/ NA(Peds) Martha Butler RN - 09/25/2023 15:38 EDT Normal [facility] ED Patient Summaryon 024 ED Patient Summary [facility] Emergency Department Discharge Instructions [id number] [place] [address] (Patient Copy) Name: VINNIE OLIVAREZ : 1985 Allergies: cinnamon; NSAIDs; codeine Diagnosis: 1:Acute abdominal pain; 2:History of gastric bypass; 3:Hematuria Visit Date: 09/25/2023 15:14:49 Current Date Time: 09/25/2023 22:24:48 Address: [address] [place] [address] Primary Care Provider: Name: STEFANY FAMILY PHYSICIAN, 837 Phone: Emergency Department Care Providers: Primary Physician: SOHAIL LLOYD MD Thank you for choosing [facility] for your emergency care. You are very important to us. Our goal is to demonstrate our high quality medical care, and provide you with a very good patient experience. You may receive a survey about our service. Please take the time to complete the survey and return it so we can continue to enhance our service. Thank you again for allowing the [facility] Emergency Department to care for your medical needs. If you have questions about your care or follow up information please contact us at [phone]. Follow-Up Instructions VINNIE OLIVAREZ has been given these follow-up instructions: Patient Education Materials VINNIE OLIVAREZ has been given the following patient education materials: BEFORE YOU LEAVE Set up your [facility] [employer] account! [employer] is a secure, online health management tool that connects you to portions of your hospital-based electronic medical record, allowing you to see test results, manage appointments, access discharge care instructions and much more. You can access [employer] from a computer, tablet or smartphone. Enrollment/registration is required. If you do not have a [employer] account, please provide us with an email address before you leave so that we may set up an account for you. New to [employer]! You may now securely connect some of the health management apps you use (e.g., fitness trackers, dietary trackers, etc.) to your health record in [facility] [employer]. This new feature provides expanded access to your health and wellness data, which will help you and your care team make informed decisions about your health care. If you are interested in using a health management goldie not currently connected to [employer], contact a Delinquent Tax Collector at [phone] or [email or web address]. We will determine if the goldie meets the technical requirements to connect to [facility] and assure the security of your private health information. Medication Information VINNIE OLIVAREZ has been given the following medication information: Only Take The Medicines On This List. Keep This List and Bring It To Your Next Appointment. Medicines To Take At Home: Medicine Name (Generic Name) Amount to Take How to Take it How Often to Take it Additional Instructions Next Dose Due Vitamin B-12 500 mcg oral tablet * (cyanocobalamin) 1,000 mcg By Mouth DAILY Benadryl 25 mg oral capsule (diphenhydramine) 50 mg By Mouth AT BEDTIME Prozac 40 mg oral capsule (fluoxetine) 1 cap(s) By Mouth DAILY folic acid 1 mg oral tablet * (folic acid) 1 mg By Mouth DAILY iron polysaccharide (as elemental iron) 150 mg oral capsule * (iron polysaccharide = niferex-150) 150 mg By Mouth TWICE A DAY WITH MEALS Trileptal 600 mg oral tablet (oxcarbazepine) 1,200 mg By Mouth AT BEDTIME Protonix 40 mg oral delayed release tablet * (pantoprazole) 40 mg By Mouth TWICE A DAY BEFORE MEALS continue for eight weeks SEROquel 400 mg oral tablet (quetiapine) 400 mg By Mouth AT BEDTIME Understanding your home medicine is important to keeping you healthy. If you are taking medications that are not on the preceding list, please call your doctor to see if you are to continue that medication. It is important that you do not skip or make up doses. If you are ordered an antibiotic, finish taking all the medicine, unless your doctor tells you otherwise. Call your doctor if you have questions or problems. Take the medicine list with you to all follow up appointments. If you or a loved one is struggling with a mental health or substance abuse issue, please call [facility] at [phone] or the National Suicide Prevention Lifeline at . ISHER PAUL L, have received the follow-up provider(s) list, medication information and patient education materials/instructions and have verbalized understanding. Patient Signature Date Time (more content not included)... Normal [facility] ED Physician Reporton 2023 ED Physician Report VINNIE OLIVAREZ :1985 Registration Date:09/25/2023 Basic Information Time Seen: 1550 Arrival Mode: Walk-In History Source: Patient _ _ History limitation: None History of Present Illness Patient is a 38-year-old presents with abdominal pain for the last 3 days. Crampy abdominal pain nausea vomiting yesterday and today, decreased p.o. intake. Had a small what he described as dry bowel movement this morning. Remote history of kidney stones. 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 Patient notes the urine is dark. He is concerned he is having hematuria. He does have a history of kidney stones but this does not feel like his kidney stones. He vomited yesterday and today. Clear emesis. Upper abdominal pain across his upper abdomen. No fevers or chills. No chest pain. Gastric bypass was done by Dr. Schroeder at [facility]. Review of Systems Constitutional symptoms: Negative except as documented in HPI. Skin symptoms: Negative except as documented in HPI. Eye symptoms: Negative except as documented in HPI. ENMT symptoms: Negative except as documented in HPI. Respiratory symptoms: Negative except as documented in HPI. Cardiovascular symptoms: Negative except as documented in HPI. Gastrointestinal symptoms: Negative except as documented in HPI. Genitourinary symptoms: Negative except as documented in HPI. Musculoskeletal symptoms: Negative except as documented in HPI. Psychiatric symptoms: Negative except as documented in HPI. Neurologic symptoms: Negative except as documented in HPI. Additional review of systems information: All other systems reviewed and otherwise negative, Systems negative except as stated in the H&P. Physical Exam Vitals & Measurements Initial: T: 36.8 ?C (Oral) HR: 58 (Peripheral) BP: 144/ 97 RR: 18 SpO2: 99% O2 Therapy: Room air O2 Flow: 0 L/min WT: 91.4 kg (Dosing) Vital Signs: Per nurse's notes. General: Alert, no acute distress Skin: Warm, dry, no rash. Head: Normocephalic, atraumatic. Neck: Supple, trachea midline. Eye: Pupils are equal, round and reactive to light, extraocular movements are intact, normal conjunctiva. Ears, nose, mouth and throat: Oral mucosa moist. Cardiovascular: Regular rate and rhythm, no murmur, arterial pulses equal and symmetric in all extremities. Respiratory: Lungs are clear to auscultation, respirations are non-labored, breath sounds are equal. Chest wall: No tenderness, no deformity. Gastrointestinal: Abdomen is thin soft tender in both upper quadrants no guarding or rebound, hypoactive bowel sounds, left inguinal nontender Back: Nontender Musculoskeletal: Normal range of motion, normal strength, no tenderness, no swelling, no deformity Lymphatics: No lymphadenopathy. Psychiatric: Cooperative, appropriate mood & affect. Neurological: Alert and oriented to person, place, time, and situation, no focal neurological deficit observed. normal sensory exam, normal observed speech, motor strength: proximal RUE 5/5, distal RUE 5/5, proximal LUE 5/5, distal LUE 5/5, proximal RLE 5/5, distal RLE 5/5, proximal LLE 5/5, distal LLE 5/5 Medical Decision Making [facility] Data Pertinent history elements: 38-year-old with upper abdominal pain Differential diagnosis: Small bowel obstruction, kidney stone, electrolyte abnormality, post-bariatric surgery complication Documents reviewed: _ _ _ _External record review includes review of patient's office report from Dr. Francis in January 2015 [facility] Testing Review Lab interpretation: Laboratory studies are obtained and independently reviewed by myself [facility] Treatment ED course: Comprehensive evaluation is pursued. Patient receives morphine Zofran IV hydration. Laboratory studies show normal white count lipase 142, AST and ALT are normal. CT of the abdomen pelvis shows status post gastric bypass with mild stranding at the gastrojejunostomy centered around a possible outpouching with surrounding lymph nodes. Finding could suggest marginal ulcer gastritis small to moderate amount of gas and fluid excluded portion of the stomach and the gastric bypass which may represent retrograde reflux of enteric contents. Urinalysis does show greater than 150 RBCs. Physician consultation: [address] Schroeder at [facility] the bariatric surgeon. She recommends the patient receive a PPI, Carafate and they will accept the patient ED to ED for acute bariatric surgical consultation. Patient received Protonix 40 mg as well as [address] Bond the ED doctor at [facility] is updated MDM Disposition Disposition: Transfer Discussed with: _ _ _Patient need for transfer for further evaluation and treatment Shared decision making: Patient agreeable to plan of care Code status: Full Reexamination/Reevaluation DISPOSITION TRANSFER Time: 1833 Transfer to: [facility] ED Accep (more content not included)... Normal [facility] ED Progress Noteon ED Progress Note 38 y/o male presente d to ED from home c/o abdominal pain and hematuria. pt states he developed blood in his urine x2 days ago that has been constant. pt denies issues urinating and denies burning but states he noted the color of his urine to be brown color. pt states he has abdominal pain in the middle of his abdomen rating 8/10 described as sharp stabbing that is constant. pt states he has been seen in the past and was diagnosed with muscle strain. pt states he has nausea but denies vomiting and diarrhea. pt denies cp, sob pt placed in position of comfort, IV placed, labs sent pt to be transported to [facility] ED, physicians contacted for pt transport, ETA 2140. report called to [facility] ED Monik KHAN, pt updated about POC 2215- physicians here to transport pt, report and packet provided, pt transported to [facility] at this time Normal [facility] ED Triage Adult-Texton 09-24 ED Triage Adult-Text ED Triage Entered O n: 09/25/2023 15:38 EDT Performed On: 09/25/2023 15:15 EDT by Martha Butler RN Triage (As Of: 09/25/2023 15:38:24 EDT) Problems(Active) At risk for falls (SNOMED CT :911039542 ) Name of Problem: At risk for falls ; Recorder: SYSTEM; Confirmation: Confirmed ; Classification: Nursing ; Code: [id number] ; Last Updated: 01/29/2015 23:01 EDT ; Life Cycle Date: 01/29/2015 ; Life Cycle Status: Active ; Vocabulary: SNOMED CT ; Comments: 01/29/2015 23:01 - SYSTEM Problem added automatically by system based on documentation of a admission to the hospital. Bipolar 1 disorder (SNOMED CT :1132894769 ) Name of Problem: Bipolar 1 disorder ; Recorder: Awilda Tomas RN; Confirmation: Confirmed ; Classification: Patient/Family Stated ; Code: 1109718905 ; Contributor System: [employer] ; Last Updated: 12/20/2014 17:18 EDT ; Life Cycle Date: 12/20/2014 ; Life Cycle Status: Active ; Vocabulary: SNOMED CT Kidney stone (SNOMED CT :471168634 ) Name of Problem: Kidney stone ; Recorder: Flor Lubin RN; Confirmation: Confirmed ; Classification: Patient/Family Stated ; Code: 105331910 ; Contributor System: [employer] ; Last Updated: 01/29/2015 20:44 EDT ; Life Cycle Date: 01/29/2015 ; Life Cycle Status: Active ; Vocabulary: SNOMED CT Knowledge deficit (SNOMED CT :1967135594 ) Name of Problem: Knowledge deficit ; Recorder: SYSTEM; Confirmation: Confirmed ; Classification: Nursing ; Code: 6707289708 ; Last Updated: 08/25/2013 17:58 EST ; Life Cycle Date: 11/05/2011 ; Life Cycle Status: Active ; Vocabulary: SNOMED CT ; Comments: 11/05/2011 19:46 - SYSTEM Problem added automatically by system based on learning needs addressed on emergency department admission. Diagnoses(Active) Abdominal pain Date: 09/25/2023 ; Diagnosis Type: Reason For Visit ; Confirmation: Confirmed ; Clinical Dx: Abdominal pain ; Classification: Medical ; Clinical Service: Non-Specified ; Code: PNED ; Probability: 0 ; Diagnosis Code: [id number] Hematuria Date: 09/25/2023 ; Diagnosis Type: Reason For Visit ; Confirmation: Confirmed ; Clinical Dx: Hematuria ; Classification: Medical ; Clinical Service: Non-Specified ; Code: PNED ; Probability: 0 ; Diagnosis Code: [id number] (As Of: 09/25/2023 15:38:24 EDT) Allergies (Active) cinnamon Estimated Onset Date: Unspecified ; Created By: Stephanie Logan RN; Reaction Status: Active ; Category: Food ; Substance: cinnamon ; Updated By: Stephanie Logan RN; Reviewed Date: 09/25/2023 15:37 EDT codeine Estimated Onset Date: Unspecified ; Created By: Martha Butler RN; Reaction Status: Active ; Category: Drug ; Substance: codeine ; Type: Allergy ; Updated By: Martha Butler RN; Reviewed Date: 09/25/2023 15:38 EDT NSAIDs Estimated Onset Date: Unspecified ; Created By: Martha Butler RN; Reaction Status: Active ; Category: Drug ; Substance: NSAIDs ; Type: Allergy ; Updated By: Martha Butler RN; Reviewed Date: 09/25/2023 15:38 EDT Vitals/Ht/Wt Temperature Oral : 36.8 degC Pulse Rate : 58 bpm (LOW) Respiratory Rate : 18 br/min Systolic Blood Pressure : 144 mmHg (HI) Diastolic Blood Pressure : 97 mmHg (HI) SpO2 : 99 % Oxygen Flow Rate : 0 L/min Oxygen Therapy : Room air Pain Symptoms : Yes Numeric Pain Scale : 8 = Severe Pain VAS Pain Scale Age : VAS (8 yrs & older) Height/Length Dosing : 180.34 cm(Converted to: 5.92 ft, 71.00 in) Weight Measured Type of Scale : Standing Scale Weight Dosing : 91.4 kg(Converted to: 3,224.040 oz, 201.503 lb) Body Mass Index Dosing : 28 Martha Butler RN - 09/25/2023 15:37 EDT Normal [facility] HEMOon 09-25-2023 DIFF? No Normal [facility] Comment on above: Performed By: #### 1 66321, 503762, 809889, [id number] ####[facility] [address] [place], [place] [id number]) [phone] Director: Fredy Zapata MD Erythrocyte distribution width (RBC) [Ratio] 13.7 % Normal 11.5-14.5 [facility] Comment on above: Performed By: #### 1 02874, 209686, 651427, 1072657 ####[facility] [address] [place], [place] [id number]) [phone] Director: Fredy Zapata MD Hematocrit (Bld) [Volume fraction] 36.1 % Low 41.0-52.0 [facility] Comment on above: Performed By: #### 1 70365, 833217, 020757, [id number] ####[facility] [address] [place], [place] [id number]) [phone] Director: Fredy Zapata MD Hemoglobin (Bld) [Mass/Vol] 12.4 g/dL Low 13.5-17.5 [facility] Comment on above: Performed By: #### 1 23792, 757624, 450800, [id number] ####[facility] [address] [place], [place] [id number]) [phone] Director: Fredy Zapata MD Instr WBC 6.1 Normal [facility] Comment on above: Performed By: #### 1 42520, 322195, 088025, 2913615 ####[facility] [address] [place] [address] Medical Director: Fredy Zapata MD MCH (RBC) [Entitic mass] 29.9 pg Normal 27.0-34.0 [facility] Comment on above: Performed By: #### 1 30566, 419991, 782518, 8170629 ####[facility] [address] [place], [place] [id number]) [phone] Director: Fredy Zapata MD MCHC (RBC) [Mass/Vol] 34.5 g/dL Normal 32.0-37.0 [facility] Comment on above: Performed By: #### 1 37148, 881055, 348834, 2352371 ####[facility] [address] [place] [address] Medical Director: Fredy Zapata MD MCV (RBC) [Entitic vol] 86.9 fL Normal 80.0-100.0 [facility] Comment on above: Performed By: #### 1 55710, 022708, 169155, 3492335 ####[facility] [address] [place] [address] Medical Director: Fredy Zapata MD MDW 17.33 Normal 13.98-20.0 0 [facility] Comment on above: Result Comment: MDW Interpretation: - For adults age 18-89 in ED, MDW >20.0 may be associated with a higher risk of Sepsis during the first 12 hours of hospital admission. - The predictive value of MDW for identifying Sepsis in patients with hematological abnormalities has not been established. - Interpret with caution when immature granulocytes, variant lymphs, or blast cells are noted on the differential. - Confirm patient age is within intended use population (18-89 years) for MDW. - For ED adults suspected of Sepsis, MDW less than or equal to 20.0 does not rule out Sepsis or the risk of Sepsis. Performed By: #### 1 60954, 751410, 656426, 1381890 ####[facility] [address] [place] [address] Medical Director: Fredy Zapata MD Nucleated RBC 0 /100WBC Normal [facility] Comment on above: Performed By: #### 1 96565, 926787, 918173, 7677139 ####[facility] [address] [place] [address] Medical Director: Fredy Zapata MD Platelet 195 x10 Normal 150-450 [facility] Comment on above: Performed By: #### 1 96114, 695979, 801637, 5548994 ####[facility] [address] [place] [address] Medical Director: Fredy Zapata MD Platelet mean volume (Bld) [Entitic vol] 8.4 fL Normal 7.4-10.4 [facility] Comment on above: Performed By: #### 1 49030, 410864, 261721, 1630320 ####[facility] [address] [place] [address] Medical Director: Fredy Zapata MD RBC 4.15 x10 Low 4.70-6.10 [facility] Comment on above: Result Comment: Note : RBC morphology is normal unless otherwise stated. Evaluation performed only if differential is requested. Performed By: #### 1 29891, 624873, 457098, 4362695 ####[facility] [address] [place] [address] Medical Director: Fredy Zapata MD WBC 6.1 x10 Normal 4.5-11.0 [facility] Comment on above: Performed By: #### 1 12899, 763002, 199283, 6245328 ####[facility] [address] [place] [address] Medical Director: Fredy Zapata MD HYDROmorPHONE 0.5MG/0.5ML IN Adria 09-25-2023 HYDROmorPHONE 0.5MG/0.5ML INJ PRN Response Entered On: 09/25/2023 18:50 EDT Performed On: 09/25/2023 18:31 EDT by Martha Butler RN Intervention Information: hydromorphone Performed by Martha Butler RN on 09/25/2023 17:31:00 EDT hydromorphone,0.5mg IV Push,Right Mid Forearm PRN Medication Response PRN Medication used for : Pain PRN Medication Effectiveness : Yes PRN Response Pain Scales : Numeric (8yrs & older) Numeric Pain Scale Age : Numeric (8yrs & older) Actual time of reassessment : Yes Martha Butler RN - 09/25/2023 18:50 EDT Numeric Pain Scale Numeric Pain Scale : 4 = Moderate Pain Numeric Pain Score : 4 Martha Butler RN - 09/25/2023 18:50 EDT Normal [facility] Comment on above: Order Comment: cruz mg SOUND ALIKE/LOOK ALIKE-verify med;CAUTION: Hydromorphone IV is 7 times more potent than morphine IV; LIPon 09-25-2023 Lipase [Catalytic activity/Vol] 142 U/L High 12-53 [facility] Comment on above: Performed By: #### 1 15016, 597519, 293031, 2712149 ####[facility] [address] [place] [address] Medical Director: Fredy Zapata MD MorPHINE 2MG/1ML INJon 09-24 MorPHINE 2MG/1ML INJ PRN Response Entere d On: 09/25/2023 17:21 EDT Performed On: 09/25/2023 16:55 EDT by Martha Butler RN Intervention Information: morphine Performed by Martha Butler RN on 09/25/2023 15:55:00 EDT morphine,4mg IV Push,Right Mid Forearm PRN Medication Response PRN Medication used for : Pain PRN Medication Effectiveness : Yes PRN Response Pain Scales : Numeric (8yrs & older) Numeric Pain Scale Age : Numeric (8yrs & older) Actual time of reassessment : Yes Martha Butler RN - 09/25/2023 17:21 EDT Numeric Pain Scale Numeric Pain Scale : 4 = Moderate Pain Numeric Pain Score : 4 Martha Butler RN - 09/25/2023 17:21 EDT Normal [facility] Comment on above: Order Comment: cruz mg SOUND ALIKE/LOOK ALIKE-verify med;potential SOUND ALIKE/LOOK ALIKE-verify med; UAon 09-25-2023 U MICRO Indicated Normal [facility] Comment on above: Performed By: #### 1 04984 ####[facility] [address] [place], [place] [id number] Medical Director: Fredy Zapata MD Appearance, U Cloudy [facility] Comment on above: Performed By: #### 1 34223 ####[facility] [address] [place], [place] [id number]) [phone] Director: Fredy Zapata MD Bacteria, U Few Normal [facility] Comment on above: Performed By: #### 1 79610 ####[facility] [address]arl[address] [place], [place] [id number]) [phone] Director: Fredy Zapata MD Bilirubin, U Negative Normal Negative [facility] Comment on above: Performed By: #### 1 42525 ####[facility] [address] [place], [place] [id number]) [phone] Director: Fredy Zapata MD Blood, U Large Abnormal Negative [facility] Comment on above: Performed By: #### 1 49626 ####[facility] [address] [place], [place] [id number]) [phone] Director: Fredy Zapata MD Color, U Yellow Normal [facility] Comment on above: Performed By: #### 1 74575 ####[facility] [address] [place], [place] [id number]) [phone] Director: Fredy Zapata MD Glucose Qual, U Negative Normal Negative [facility] Comment on above: Performed By: #### 1 14919 ####[facility] [address] [place], [place] [id number]) [phone] Director: Fredy Zapata MD Ketones, U Negative Normal Negative [facility] Comment on above: Performed By: #### 1 73175 ####[facility] [address] [place], [place] [id number]) [phone] Director: Fredy Zapata MD Leukocyte Esterase, U Trace Abnormal Negative [facility] Comment on above: Performed By: #### 1 80762 ####[facility] [address] [place], [place] [address]) [phone] Director: Fredy Zapata MD Mucous, U Occasional Normal [facility] Comment on above: Performed By: #### 1 76978 ####[facility] [address] [place], [place] [id number]) [phone] Director: Fredy Zapata MD Nitrite, U Negative Normal Negative [facility] Comment on above: Performed By: #### 1 61308 ####[facility] [address] [place] [address] Medical Director: Fredy Zapata MD pH, U 6.0 Normal 4.5-8.0 [facility] Comment on above: Performed By: #### 1 75689 ####[facility] [address]xl[address] [place] [address] Medical Director: Fredy Zapata MD Protein, U 100 mg/dl Abnormal Negative [facility] Comment on above: Performed By: #### 1 66900 ####[facility] [address] [place] [address] Medical Director: Fredy Zapata MD RBC/HPF, U >150 High 0-3 [facility] Comment on above: Performed By: #### 1 92624 ####[facility] [address] [place] [address] [facility] Director: Fredy Zapata MD Specific [place], U 1.023 Normal 1.001-1. 03 5 [facility] Comment on above: Performed By: #### 1 98377 ####[facility] [address] [place] [address] Medical Director: Fredy Zapata MD Squamous Epithelial Cells, U 1 #/HPF Normal [facility] Comment on above: Performed By: #### 1 71058 ####[facility] [address] [place], [place] [id number]) [phone] Director: Fredy Zapata MD Urobilinogen Qual, U 4.0 mg/dl Abnormal <2.0 mg/dl [facility] Comment on above: Result Comment: EU/d l and mg/dl are equivalent units. Performed By: #### 1 35869 ####[facility] [address]mu[address] [place] [address] Medical Director: Fredy Zapata MD WBC/HPF, U 1 #/HPF Normal 0-5 [facility] Comment on above: Performed By: #### 1 70618 ####[facility] [address] [place] [address] Medical Director: Fredy Zapata MD Absolute lymphocyte countOrd ered By: Mohan De Jesus on 09-09-2023 Lymphocytes Auto (Unsp spec) [#/Vol] 2.66 10*3/uL 0.83-4.51 [place] Automated lymphocyte count a s percentage of total leukocytesOrdered By: Mohan De Jesus on 09-09-2023 Lymphocytes/100 WBC Auto (Unsp spec) 40.6 % 19-41 [facility] Basophil percentageOrdered B y: Mohan De Jesus on 09-09-2023 Basophil percentage 0 SEEN /hpf 0-5 [facility] Basophils/100 WBC (Bld) 0.8 % 0-1 [facility] Bilirubin [Mass/Vol] 0.30 mg/dL 0.20-1.00 [facility] Comment on above: For patients on eltr ombopag therapy, use of Dimension [place] TBIL is not recommended. Chloride [Moles/Vol] 113 mmol/L 98-107 [facility] Eosinophils/100 WBC (Bld) 3.4 % 0-5 [facility] Glucose [Mass/Vol] 78 mg/dL 74-106 [facility] Hemoglobin (Bld) [Mass/Vol] 13.1 g/dL 13.0-16.5 [facility] Monocytes/100 WBC (Bld) 8.4 % 0-10 [facility] Neutrophils (Bld) [#/Vol] 3.1 10*3/uL 2.0-7.7 [facility] Neutrophils/100 WBC (Bld) 46.6 % 47-70 [facility] Potassium [Moles/Vol] 4.0 mmol/L 3.5-5.1 [facility] Protein [Mass/Vol] 6.9 g/dL 6.4-8.2 [facility] Sodium [Moles/Vol] 143 mmol/L 136-145 [facility] WBC (Bld) [#/Vol] 6.6 10*3/uL 4.4-11.0 [facility] Bilirubin Test strip Ql (U)O rdered By: Mohan De Jesus on 09-09-2023 Bilirubin Ql (U) Negative Negative [facility] Calcium oxalate crystals det ection in urine sediment by light microscopyOrdered By: Mohan De Jesus on 09-09-2023 Calcium oxalate crystals LM Ql (Urine sed) 1+ /hpf [facility] Determination of erythrocyte mean corpuscular volume (MCV)Ordered By: Mohan De Jesus on 09-09-2023 MCV (RBC) [Entitic vol] 87.1 fL 80-94 [facility] Erythrocyte distribution wid th ratioOrdered By: Mohan De Jesus on 09-09-2023 Erythrocyte distribution width (RBC) [Ratio] 12.8 % 11.6-14.6 [facility] Erythrocyte distribution wid th standard deviationOrdered By: Mohan De Jesus on 09-09-2023 Erythrocyte distribution width (RBC) [Entitic vol] 40.3 fL 35.1-43.9 [facility] Hematocrit Auto (Bld) [Volum e fraction]Ordered By: Mohan De Jesus on 09-09-2023 Hematocrit (Bld) [Volume fraction] 39.9 % 40-54 [facility] Immature granulocytes/100 WB C Auto (Bld)Ordered By: Mohan De Jesus on 09-09-2023 Immature granulocytes/100 WBC (Bld) 0.200 % 0.0-0.9 [facility] Comment on above: IG% - Immature Granu locytes (promyelocytes, myelocytes and metamyelocytes) > 1% indicates that a LEFT SHIFT is Present. Ketones Test strip Ql (U)Ord ered By: Mohan De Jesus on 09-09-2023 Ketones Ql (U) Negative Negative [facility] - Chemistry and C hemistry - challengeOrdered By: Mohan De Jesus on 09-09-2023 Albumin/Globulin [Mass ratio] 1.2 {ratio} 0.9-2.4 [facility] ALP [Catalytic activity/Vol] 117 U/L 45-117 [facility] ALT [Catalytic activity/Vol] 14 U/L 16-61 [facility] CO2 [Moles/Vol] 30.0 mmol/L 21.0-32.0 [facility] Globulin (S) [Mass/Vol] 3.1 g/dL 2.2-4.2 [facility] Urea nitrogen/Creatinine [Mass ratio] 11.9 mg/mg 10-20 [facility] - Hematology and Cell countsOrdered By: Mohan De Jesus on 09-09-2023 MCH (RBC) [Entitic mass] 28.6 pg 27.0-32.0 [facility] MCHC (RBC) [Mass/Vol] 32.8 g/dL 32-36 [facility] Nucleated RBC/100 WBC (Bld) [Ratio] 0 % 0-5 [facility] Platelet mean volume (Bld) [Entitic vol] 9.6 fL 6.2-12.0 [facility] Platelets (Bld) [#/Vol] 220 10*3/uL 150-450 [facility] Mucus LM Ql (Urine sed)Order ed By: Mohan De Jesus on 09-09-2023 Mucus Ql (Urine sed) 0 SEEN /hpf [facility] Nitrite Test strip Ql (U)Ord ered By: Mohan De Jesus on 09-09-2023 Nitrite Ql (U) Negative Negative [facility] No Panel InformationOrdered By: Mohan De Jesus on 09-09-2023 Urine RBC 10-25 SEEN /hpf 0-5 [facility] Estimated Creatinine Clearance Calc 123.21 ml/min [facility] Estimated GFR (MDRD) Amer 117 mL/min >60 [facility] Comment on above: GFR Calc Estimated GFR (MDRD) Non-Af Amer 96 mL/min >60 [facility] Comment on above: Non- GFR Calc Protein Test strip Ql (U)Ord ered By: Mohan De Jesus on 09-09-2023 Protein Ql (U) 15 mg/dl Negative [facility] RBC Auto (Bld) [#/Vol]Ordere d By: Mohan De Jesus on 09-09-2023 RBC (Bld) [#/Vol] 4.58 10*6/uL 4.6-6.2 [facility] Serum or plasma calcium charlene urement (mass/volume)Ordered By: Mohan De Jesus on 09-09-2023 Calcium [Mass/Vol] 8.7 mg/dL 8.5-10.1 [facility] Serum or plasma creatinine m easurement (mass/volume)Ordered By: Mohan De Jesus on 09-09-2023 Creatinine [Mass/Vol] 0.93 mg/dL 0.70-1.30 [facility] Comment on above: The validity of the calculated GFR & GFRAA in patients over 70 years has not been determined. Clinical correlation is essential. Serum or plasma urea nitroge n measurement (mass/volume)Ordered By: Mohan De Jesus on 09-09-2023 Urea nitrogen [Mass/Vol] 11 mg/dL 7-18 [facility] Squamous epithelial cells de tection in urine sediment by light microscopyOrdered By: Mohan De Jesus on 09-09-2023 Epithelial cells.squamous LM Ql (Urine sed) 0 SEEN /hpf 0-5 [facility] Thin prep Papanicolaou smear with manual screeningOrdered By: Mohan De Jesus on 09-09-2023 Thin prep Papanicolaou smear with manual screening 3.8 g/dL 3.2-5.0 [facility] Thin prep Papanicolaou smear with manual screening 16 U/L 15-37 [facility] Thin prep Papanicolaou smear with manual screening 0 5-15 [facility] Urine blood detectionOrdered By: Mohan De Jesus on 09-09-2023 RBC Ql (U) 50 /ul Negative [facility] Urine clarityOrdered By: Marlena De Jesus on 09-09-2023 Clarity (U) Sl. Cloudy Clear [facility] Urine color determinationOrd ered By: Mohan De Jesus on 09-09-2023 Color (U) Yellow Yellow [facility] Urine glucose detectionOrder ed By: Mohan De Jesus on 09-09-2023 Glucose Ql (U) Normal mg/dl Normal [facility] Urine leukocyte esterase det ection by dipstickOrdered By: Mohan De Jesus on 09-09-2023 Leukocyte esterase Test strip Ql (U) 100 /ul Negative [facility] Urine pHOrdered By: Mohan lopez on 09-09-2023 pH (U) 5.0 [pH] 5.0 - 8.0 [facility] Urine sediment bacteria coun t by microscopy (number/high power field)Ordered By: Mohan De Jesus on 09-09-2023 Bacteria LM.HPF (Urine sed) [#/Area] 0 /[HPF] None Seen [facility] Urine specific gravity measu rementOrdered By: Mohan De Jesus on 09-09-2023 Specific gravity (U) [Rel density] 1.015 1.002-1.03 0 [facility] Urine urobilinogen measureme ntOrdered By: Mohan De Jesus on 09-09-2023 Urobilinogen Ql (U) 1 mg/dl Normal [facility] Absolute lymphocyte countOrd ered By: Shakeel Castro on 08-31-2023 Lymphocytes Auto (Unsp spec) [#/Vol] 2.47 10*3/uL 0.83-4.51 [facility] Automated lymphocyte count a s percentage of total leukocytesOrdered By: Shakeel Castro on 08-31-2023 Lymphocytes/100 WBC Auto (Unsp spec) 35.8 % 19-41 [facility] Basophil percentageOrdered B y: Shakeel Castro on 08-31-2023 Basophils/100 WBC (Bld) 1.0 % 0-1 [facility] Bilirubin [Mass/Vol] 0.40 mg/dL 0.20-1.00 [facility] Comment on above: For patients on eltr ombopag therapy, use of Dimension [place] TBIL is not recommended. Chloride [Moles/Vol] 110 mmol/L 98-107 [facility] Eosinophils/100 WBC (Bld) 3.0 % 0-5 [facility] Glucose [Mass/Vol] 89 mg/dL 74-106 [facility] Hemoglobin (Bld) [Mass/Vol] 12.5 g/dL 13.0-16.5 [facility] Lactate [Moles/Vol] 0.8 mmol/L 0.4-2.0 [facility] Monocytes/100 WBC (Bld) 7.8 % 0-10 [facility] Neutrophils (Bld) [#/Vol] 3.6 10*3/uL 2.0-7.7 [facility] Neutrophils/100 WBC (Bld) 52.1 % 47-70 [facility] Potassium [Moles/Vol] 4.1 mmol/L 3.5-5.1 [facility] Protein [Mass/Vol] 6.8 g/dL 6.4-8.2 [facility] Sodium [Moles/Vol] 141 mmol/L 136-145 [facility] WBC (Bld) [#/Vol] 6.9 10*3/uL 4.4-11.0 [facility] Bilirubin Test strip Ql (U)O rdered By: Shakeel Castro on 08-31-2023 Bilirubin Ql (U) Negative Negative [facility] Determination of erythrocyte mean corpuscular volume (MCV)Ordered By: Shakeel Castro on 08-31-2023 MCV (RBC) [Entitic vol] 85.1 fL 80-94 [facility] Erythrocyte distribution wid th ratioOrdered By: Shakeel Castro on 08-31-2023 Erythrocyte distribution width (RBC) [Ratio] 12.4 % 11.6-14.6 [facility] Erythrocyte distribution wid th standard deviationOrdered By: Shakeel Castro on 08-31-2023 Erythrocyte distribution width (RBC) [Entitic vol] 38.3 fL 35.1-43.9 [facility] Hematocrit Auto (Bld) [Volum e fraction]Ordered By: Shakeel Castro on 08-31-2023 Hematocrit (Bld) [Volume fraction] 37.7 % 40-54 [facility] Immature granulocytes/100 WB C Auto (Bld)Ordered By: Shakeel Castro on 08-31-2023 Immature granulocytes/100 WBC (Bld) 0.300 % 0.0-0.9 [facility] Comment on above: IG% - Immature Granu locytes (promyelocytes, myelocytes and metamyelocytes) > 1% indicates that a LEFT SHIFT is Present. Ketones Test strip Ql (U)Ord ered By: Shakeel Castro on 08-31-2023 Ketones Ql (U) 5 mg/dl Negative [facility] - Chemistry and C hemistry - challengeOrdered By: Shakeel Castro on 08-31-2023 Albumin/Globulin [Mass ratio] 1.3 {ratio} 0.9-2.4 [facility] ALP [Catalytic activity/Vol] 102 U/L 45-117 [facility] ALT [Catalytic activity/Vol] 13 U/L 16-61 [facility] CO2 [Moles/Vol] 29.0 mmol/L 21.0-32.0 [place] Globulin (S) [Mass/Vol] 2.9 g/dL 2.2-4.2 [place] Lipase [Catalytic activity/Vol] 112 U/L 13-75 [place] Comment on above: Please note:LIPASE r evised reference range effective 22. New Lipase methodology. Expected to produce lower values than the previous assay method. NEW Reference Range: 13 - 75 U/L Urea nitrogen/Creatinine [Mass ratio] 13.8 mg/mg 10-20 [facility] - Hematology and Cell countsOrdered By: Shakeel Castro on 08-31-2023 MCH (RBC) [Entitic mass] 28.2 pg 27.0-32.0 [place] MCHC (RBC) [Mass/Vol] 33.2 g/dL 32-36 [facility] Nucleated RBC/100 WBC (Bld) [Ratio] 0 % 0-5 [place] Platelet mean volume (Bld) [Entitic vol] 9.8 fL 6.2-12.0 [place] Platelets (Bld) [#/Vol] 204 10*3/uL 150-450 [place] Nitrite Test strip Ql (U)Ord ered By: Shakeel Castro on 08-31-2023 Nitrite Ql (U) Negative Negative [place] No Panel InformationOrdered By: Shakeel Castro on 08-31-2023 Estimated GFR (MDRD) Amer 126 mL/min >60 [place] Comment on above: GFR Calc Estimated GFR (MDRD) Non-Af Amer 104 mL/min >60 [place] Comment on above: Non- GFR Calc Protein Test strip Ql (U)Ord ered By: Shakeel Castro on 08-31-2023 Protein Ql (U) 30 mg/dl Negative [place] RBC Auto (Bld) [#/Vol]Ordere d By: Shakeel Castro on 08-31-2023 RBC (Bld) [#/Vol] 4.43 10*6/uL 4.6-6.2 [facility] Serum or plasma calcium charlene urement (mass/volume)Ordered By: Shakeel Castro on 08-31-2023 Calcium [Mass/Vol] 9.3 mg/dL 8.5-10.1 [facility] Serum or plasma creatinine m easurement (mass/volume)Ordered By: Shaekel Castro on 08-31-2023 Creatinine [Mass/Vol] 0.87 mg/dL 0.70-1.30 [facility] Comment on above: The validity of the calculated GFR & GFRAA in patients over 70 years has not been determined. Clinical correlation is essential. Serum or plasma urea nitroge n measurement (mass/volume)Ordered By: Shakeel Castro on 08-31-2023 Urea nitrogen [Mass/Vol] 12 mg/dL 7-18 [place] Thin prep Papanicolaou smear with manual screeningOrdered By: Shakeel Castro on 08-31-2023 Thin prep Papanicolaou smear with manual screening 3.9 g/dL 3.2-5.0 [place] Thin prep Papanicolaou smear with manual screening 17 U/L 15-37 [place] Thin prep Papanicolaou smear with manual screening 2 5-15 [place] Urine blood detectionOrdered By: Shakeel Castro on 08-31-2023 RBC Ql (U) 250 /ul Negative [place] Urine clarityOrdered By: Rigoberto Castro on 08-31-2023 Clarity (U) Sl. Cloudy Clear [place] Urine color determinationOrd ered By: Shakeel Castro on 08-31-2023 Color (U) Yellow Yellow [place] Urine glucose detectionOrder ed By: Shakeel Castro on 08-31-2023 Glucose Ql (U) Normal mg/dl Normal [place] Urine leukocyte esterase det ection by dipstickOrdered By: hSakeel Castro on 08-31-2023 Leukocyte esterase Test strip Ql (U) 25 /ul Negative [place] Urine pHOrdered By: Shakeel lopez on 08-31-2023 pH (U) 6.0 [pH] 5.0 - 8.0 [place] Urine specific gravity measu rementOrdered By: Shakeel Castro on 08-31-2023 Specific gravity (U) [Rel density] 1.020 1.002-1.03 0 [place] Urine urobilinogen measureme ntOrdered By: Shakeel Castro on 08-31-2023 Urobilinogen Ql (U) 4 mg/dl Normal [facility] Absolute lymphocyte countOrd ered By: Dr. Paige on 11-11-2022 Lymphocytes Auto (Unsp spec) [#/Vol] 1.63 10*3/uL 0.83-4.51 [place] Basophil percentageOrdered B y: Dr. Paige on 11-11-2022 Basophils/100 WBC (Bld) 0.4 % 0-1 [place] Bilirubin [Mass/Vol] 0.60 mg/dL 0.20-1.00 [facility] Comment on above: For patients on eltr ombopag therapy, use of Dimension [place] TBIL is not recommended. Chloride [Moles/Vol] 104 mmol/L 98-107 [facility] Eosinophils/100 WBC (Bld) 1.1 % 0-5 [place] Glucose [Mass/Vol] 112 mg/dL 74-106 [facility] Comment on above: Fasting Glucose resu lt from 100 to 125 mg/dL suggests IMPAIRED HOMEOSTASIS per A.D.A. criteria. Neutrophils (Bld) [#/Vol] 5.1 10*3/uL 2.0-7.7 [place] Neutrophils/100 WBC (Bld) 64.7 % 47-70 [place] Potassium [Moles/Vol] 4.1 mmol/L 3.5-5.1 [facility] Protein [Mass/Vol] 8.2 g/dL 6.4-8.2 [facility] Sodium [Moles/Vol] 134 mmol/L 136-145 [facility] WBC (Bld) [#/Vol] 7.9 10*3/uL 4.4-11.0 [facility] Blood erythrocytes count (nu mber/volume)Ordered By: Dr. Paige on 11-11-2022 RBC (Bld) [#/Vol] 5.60 10*6/uL 4.6-6.2 [facility] Blood hemoglobin measurement (mass/volume)Ordered By: Dr. Paige on 11-11-2022 Hemoglobin (Bld) [Mass/Vol] 15.6 g/dL 13.0-16.5 [place] Blood lymphocytes/100 leukoc ytesOrdered By: Dr. Paige on 11-11-2022 Lymphocytes/100 WBC (Bld) 20.6 % 19-41 [place] Blood monocytes/100 leukocyt esOrdered By: Dr. Paige on 11-11-2022 Monocytes/100 WBC (Bld) 12.8 % 0-10 [place] Blood platelet mean volumeOr dered By: Dr. Paige on 11-11-2022 Platelet mean volume (Bld) [Entitic vol] 10.6 fL 6.2-12.0 [place] Determination of erythrocyte mean corpuscular volume (MCV)Ordered By: Dr. Paige on 11-11-2022 MCV (RBC) [Entitic vol] 81.1 fL 80-94 [place] Hematocrit Auto (Bld) [Volum e fraction]Ordered By: Dr. Paige on 11-11-2022 Hematocrit (Bld) [Volume fraction] 45.4 % 40-54 [facility] - Chemistry and C hemistry - challengeOrdered By: Dr. Paige on 11-11-2022 ALP [Catalytic activity/Vol] 87 U/L 45-117 [place] ALT [Catalytic activity/Vol] 127 U/L 16-61 [place] CO2 [Moles/Vol] 23.0 mmol/L 21.0-32.0 [place] Globulin (S) [Mass/Vol] 4.4 g/dL 2.2-4.2 [place] Lipase [Catalytic activity/Vol] 72 U/L 13-75 [place] Comment on above: Please note:LIPASE r evised reference range effective 22. New Lipase methodology. Expected to produce lower values than the previous assay method. NEW Reference Range: 13 - 75 U/L Urea nitrogen/Creatinine [Mass ratio] 18.2 mg/mg 10-20 [facility] - Hematology and Cell countsOrdered By: Dr. Paige on 11-11-2022 Erythrocyte distribution width (RBC) [Entitic vol] 36.8 fL 35.1-43.9 [place] Erythrocyte distribution width (RBC) [Ratio] 12.7 % 11.6-14.6 [place] Immature granulocytes/100 WBC (Bld) 0.400 % 0.0-0.9 [place] Comment on above: IG% - Immature Granu locytes (promyelocytes, myelocytes and metamyelocytes) > 1% indicates that a LEFT SHIFT is Present. MCH (RBC) [Entitic mass] 27.9 pg 27.0-32.0 [place] Nucleated RBC/100 WBC (Bld) [Ratio] 0 % 0-5 [place] MCHC Auto (RBC) [Mass/Vol]Or dered By: Dr. Paige on 11-11-2022 MCHC (RBC) [Mass/Vol] 34.4 g/dL 32-36 [facility] No Panel InformationOrdered By: Dr. Paige on 11-11-2022 Estimated Creatinine Clearance Calc 114.70 ml/min [place] Estimated GFR (MDRD) Amer 116 mL/min >60 [place] Comment on above: GFR Calc Estimated GFR (MDRD) Non-Af Amer 96 mL/min >60 [place] Comment on above: Non- GFR Calc Platelets bldOrdered By: Dr. Paige on 11-11-2022 Platelets (Bld) [#/Vol] 333 10*3/uL 150-450 [place] Serum or plasma albumin charlene urement (mass/volume)Ordered By: Dr. Paige on 11-11-2022 Albumin [Mass/Vol] 3.8 g/dL 3.2-5.0 [facility] Serum or plasma albumin/glob ulin mass ratioOrdered By: Dr. Paige on 11-11-2022 Albumin/Globulin [Mass ratio] 0.9 {ratio} 0.9-2.4 [place] Serum or plasma calcium charlene urement (mass/volume)Ordered By: Dr. Paige on 11-11-2022 Calcium [Mass/Vol] 9.8 mg/dL 8.5-10.1 [facility] Serum or plasma creatinine m easurement (mass/volume)Ordered By: Dr. Paige on 11-11-2022 Creatinine [Mass/Vol] 0.93 mg/dL 0.70-1.30 [facility] Comment on above: The validity of the calculated GFR & GFRAA in patients over 70 years has not been determined. Clinical correlation is essential. Serum or plasma urea nitroge n measurement (mass/volume)Ordered By: Dr. Paige on 11-11-2022 Urea nitrogen [Mass/Vol] 17 mg/dL 7-18 [place] Thin prep Papanicolaou smear with manual screeningOrdered By: Dr. Paige on 11-11-2022 Thin prep Papanicolaou smear with manual screening 39 U/L 15-37 [place] Thin prep Papanicolaou smear with manual screening 7 5-15 [place] Absolute lymphocyte countOrd ered By: Vinnie Pappas on 11-10-2022 Lymphocytes Auto (Unsp spec) [#/Vol] 2.63 10*3/uL 0.83-4.51 [place] Basophil percentageOrdered B y: Vinnie Pappas on 11-10-2022 Basophils/100 WBC (Bld) 0.5 % 0-1 [place] Bilirubin [Mass/Vol] 0.60 mg/dL 0.20-1.00 [facility] Comment on above: For patients on eltr ombopag therapy, use of Dimension [place] TBIL is not recommended. Chloride [Moles/Vol] 103 mmol/L 98-107 [facility] Eosinophils/100 WBC (Bld) 1.2 % 0-5 [place] Glucose [Mass/Vol] 95 mg/dL 74-106 [facility] Lactate [Moles/Vol] 2.1 mmol/L 0.4-2.0 [facility] Comment on above: Critical Result(s) C alled at: 21:00:17 11/10/2022 by: MARCE VELASQUEZ TO JEREMY GILLIS. Results read back by same. Neutrophils (Bld) [#/Vol] 4.3 10*3/uL 2.0-7.7 [place] Neutrophils/100 WBC (Bld) 53.3 % 47-70 [place] Potassium [Moles/Vol] 3.8 mmol/L 3.5-5.1 [facility] Protein [Mass/Vol] 7.8 g/dL 6.4-8.2 [facility] Sodium [Moles/Vol] 134 mmol/L 136-145 [facility] WBC (Bld) [#/Vol] 8.1 10*3/uL 4.4-11.0 [facility] Blood erythrocytes count (nu mber/volume)Ordered By: Vninie Pappas on 11-10-2022 RBC (Bld) [#/Vol] 5.34 10*6/uL 4.6-6.2 [facility] Blood hemoglobin measurement (mass/volume)Ordered By: Vinnie Pappas on 11-10-2022 Hemoglobin (Bld) [Mass/Vol] 14.7 g/dL 13.0-16.5 [place] Blood lymphocytes/100 leukoc ytesOrdered By: Vinnie Pappas on 11-10-2022 Lymphocytes/100 WBC (Bld) 32.3 % 19-41 [place] Blood monocytes/100 leukocyt esOrdered By: Vinnie Pappas on 11-10-2022 Monocytes/100 WBC (Bld) 12.5 % 0-10 [place] Blood platelet mean volumeOr dered By: Vinnie Pappas on 11-10-2022 Platelet mean volume (Bld) [Entitic vol] 10.4 fL 6.2-12.0 [place] Determination of erythrocyte mean corpuscular volume (MCV)Ordered By: Vinnie Pappas on 11-10-2022 MCV (RBC) [Entitic vol] 80.9 fL 80-94 [place] Hematocrit Auto (Bld) [Volum e fraction]Ordered By: Vinnie Pappas on 11-10-2022 Hematocrit (Bld) [Volume fraction] 43.2 % 40-54 [facility] - Chemistry and C hemistry - challengeOrdered By: Vinnie Pappas on 11-10-2022 ALP [Catalytic activity/Vol] 77 U/L 45-117 [place] ALT [Catalytic activity/Vol] 143 U/L 16-61 [place] CO2 [Moles/Vol] 23.0 mmol/L 21.0-32.0 [place] Globulin (S) [Mass/Vol] 4.2 g/dL 2.2-4.2 [place] Lipase [Catalytic activity/Vol] 53 U/L 13-75 [place] Comment on above: Please note:LIPASE r evised reference range effective 22. New Lipase methodology. Expected to produce lower values than the previous assay method. NEW Reference Range: 13 - 75 U/L Urea nitrogen/Creatinine [Mass ratio] 17.4 mg/mg 10-20 [facility] - Hematology and Cell countsOrdered By: Vinnie Pappas on 11-10-2022 Erythrocyte distribution width (RBC) [Entitic vol] 36.5 fL 35.1-43.9 [place] Erythrocyte distribution width (RBC) [Ratio] 12.6 % 11.6-14.6 [place] Immature granulocytes/100 WBC (Bld) 0.200 % 0.0-0.9 [place] Comment on above: IG% - Immature Granu locytes (promyelocytes, myelocytes and metamyelocytes) > 1% indicates that a LEFT SHIFT is Present. MCH (RBC) [Entitic mass] 27.5 pg 27.0-32.0 [place] Nucleated RBC/100 WBC (Bld) [Ratio] 0 % 0-5 [place] MCHC Auto (RBC) [Mass/Vol]Or dered By: Vinnie Pappas on 11-10-2022 MCHC (RBC) [Mass/Vol] 34.0 g/dL 32-36 [facility] No Panel InformationOrdered By: Vinnie Pappas on 11-10-2022 Estimated Creatinine Clearance Calc 108.85 ml/min [place] Estimated GFR (MDRD) Amer 111 mL/min >60 [place] Comment on above: GFR Calc Estimated GFR (MDRD) Non-Af Amer 91 mL/min >60 [place] Comment on above: Non- GFR Calc Platelets bldOrdered By: Eduard Pappas on 11-10-2022 Platelets (Bld) [#/Vol] 302 10*3/uL 150-450 [place] Serum or plasma albumin charlene urement (mass/volume)Ordered By: Vinnie Pappas on 11-10-2022 Albumin [Mass/Vol] 3.6 g/dL 3.2-5.0 [facility] Serum or plasma albumin/glob ulin mass ratioOrdered By: Vinnie Pappas on 11-10-2022 Albumin/Globulin [Mass ratio] 0.9 {ratio} 0.9-2.4 [place] Serum or plasma calcium charlene urement (mass/volume)Ordered By: Vinnie Pappas on 11-10-2022 Calcium [Mass/Vol] 9.6 mg/dL 8.5-10.1 [facility] Serum or plasma creatinine m easurement (mass/volume)Ordered By: Vinnie Pappas on 11-10-2022 Creatinine [Mass/Vol] 0.98 mg/dL 0.70-1.30 [facility] Comment on above: The validity of the calculated GFR & GFRAA in patients over 70 years has not been determined. Clinical correlation is essential. Serum or plasma urea nitroge n measurement (mass/volume)Ordered By: Vinnie Pappas on 11-10-2022 Urea nitrogen [Mass/Vol] 17 mg/dL 7-18 [place] Thin prep Papanicolaou smear with manual screeningOrdered By: Vinnie Pappas on 11-10-2022 Thin prep Papanicolaou smear with manual screening 43 U/L 15-37 [place] Thin prep Papanicolaou smear with manual screening 8 5-15 [place] CBC W Auto Differential pane l (Bld)on 05-07-2022 Basophils (Bld) [#/Vol] 0.04 10*3/uL <0.11 k/uL [facility] Basophils/100 WBC (Bld) 0.6 % [facility] Differential cell count method Nom (Bld) Auto [facility] Eosinophils (Bld) [#/Vol] 0.08 10*3/uL <0.46 k/uL [facility] Eosinophils/100 WBC (Bld) 1.3 % [facility] Erythrocyte distribution width (RBC) [Ratio] 17.5 % High 11.5 - 15.0 % [facility] Hematocrit (Bld) [Volume fraction] 41.8 % 39.0 - 51.0 % [facility] Hemoglobin (Bld) [Mass/Vol] 13.4 g/dL 13.0 - 17.0 g/dL [facility] Immature granulocytes (Bld) [#/Vol] <0.10 k/uL [facility] Immature granulocytes/100 WBC (Bld) 0.3 % [facility] Lymphocytes (Bld) [#/Vol] 1.68 10*3/uL 1.00 - 4.00 k/uL [facility] Lymphocytes/100 WBC (Bld) 27.3 % [facility] MCH (RBC) [Entitic mass] 25.6 pg Low 26.0 - 34.0 pg [facility] MCHC (RBC) [Mass/Vol] 32.1 g/dL 30.5 - 36.0 g/dL [facility] MCV (RBC) [Entitic vol] 79.9 fL Low 80.0 - 100.0 fL [facility] Monocytes (Bld) [#/Vol] 0.46 10*3/uL <0.87 k/uL [facility] Monocytes/100 WBC (Bld) 7.5 % [facility] Neutrophils (Bld) [#/Vol] 3.88 10*3/uL 1.45 - 7.50 k/uL [facility] Neutrophils/100 WBC (Bld) 63.0 % [facility] Nucleated RBC (Bld) [#/Vol] <0.01 k/uL [facility] Nucleated RBC/100 WBC (Bld) [Ratio] 0.0 /100 WBC [facility] Platelet mean volume (Bld) [Entitic vol] 10.7 fL 9.0 - 12.7 fL [facility] Platelets (Bld) [#/Vol] 212 10*3/uL 150 - 400 k/uL [facility] RBC (Bld) [#/Vol] 5.23 10*6/uL 4.20 - 6.00 m/uL [facility] WBC (Bld) [#/Vol] 6.16 10*3/uL 3.70 - 11.00 k/uL [facility] FERRITIN BLDon 05-07-2022 Ferritin [Mass/Vol] 28.4 ng/mL Low 30.3 - 565.7 ng/mL [facility] Iron and Iron binding capaci ty panelon 05-07-2022 Iron [Mass/Vol] 113 ug/dL 41 - 186 ug/dL [facility] Iron binding capacity [Mass/Vol] 333 ug/dL 232 - 386 ug/dL [facility] Iron saturation [Mass fraction] 33.9 % 15.0 - 57.0 % [facility] RETIC COUNTon 05-07-2022 Reticulocytes (Bld) [#/Vol] 0.98908 10*3/uL 0.018 - 0.100 M/uL [facility] Reticulocytes (Bld) [#/Vol]o n 05-07-2022 Reticulocytes/100 RBC (Bld) 1.7 % 0.4 - 2.0 % [facility] No Panel Informationon 02-07 [facility] No Panel Informationon 02-06 DLCO (ml/min/mmHg) 30.12 ml/min/mmHg [facility] DLCO/VA (ml/min/mmHg/L) 4.03 ml/min/mmHg/L [facility] ERV BOX (L) 1.35 L [facility] [id number]% POST (L/S) 4.46 L/S [facility] [id number]% PRE (L/S) 3.26 L/S [facility] FEV1 PRE (L) 3.82 L [facility] FEV1/FVC POST (%) 79 % [facility] FEV1/FVC PRE (%) 75 % [facility] FEV1_POST (L) 4.27 L [facility] FRC Box (L) 3.48 L [facility] FVC POST (L) 5.38 L [facility] FVC PRE (L) 5.10 L [facility] IC BOX (L) 3.37 L [facility] PEF POST (L/S) 8.91 L/S [facility] PEF PRE (L/S) 6.45 L/S [facility] RV Box (L) 2.13 L [facility] RV/TLC Box (%) 31 % [facility] TLC Box (L) 6.85 L [facility] VA (L) 7.48 L [facility] VC (L) BOX 4.72 L [facility] CBC panel Auto (Bld)on 12-20 Erythrocyte distribution width (RBC) [Ratio] 17.3 % High 11.5 - 15.0 % [facility] Hematocrit (Bld) [Volume fraction] 36.6 % Low 39.0 - 51.0 % [facility] Hemoglobin (Bld) [Mass/Vol] 10.4 g/dL Low 13.0 - 17.0 g/dL [facility] MCH (RBC) [Entitic mass] 20.8 pg Low 26.0 - 34.0 pg [facility] MCHC (RBC) [Mass/Vol] 28.4 g/dL Low 30.5 - 36.0 g/dL [facility] MCV (RBC) [Entitic vol] 73.2 fL Low 80.0 - 100.0 fL [facility] Nucleated RBC (Bld) [#/Vol] 10*3/uL <0.01 k/uL [facility] Platelet mean volume (Bld) [Entitic vol] 10.3 fL 9.0 - 12.7 fL [facility] Platelets (Bld) [#/Vol] 221 10*3/uL 150 - 400 k/uL [facility] RBC (Bld) [#/Vol] 5.00 10*6/uL 4.20 - 6.00 m/uL [facility] WBC (Bld) [#/Vol] 4.62 10*3/uL 3.70 - 11.00 k/uL [facility] CORTISOL, 30 MINon 2 Cortisol 30 Min post Unsp challenge [Mass/Vol] 30.5 ug/dL [facility] CORTISOL, 60 MINon 2 Cortisol 1 Hr post Unsp challenge [Mass/Vol] 32.3 ug/dL [facility] Interpretation (ACTHST) ACTH Stimulation Test normal response to cortrosyn: An absolute increment of 8 ug/dL and a peak value of at least 18 ug/dL. [facility] CORTISOL, BASALon 12-20-2021 Cortisol baseline [Mass/Vol] 15.4 ug/dL [facility] FERRITIN BLDon 12-20-2021 Ferritin [Mass/Vol] 8.7 ng/mL Low 30.3 - 565.7 ng/mL [facility] IRON + TIBCon 12-20-2021 Iron [Mass/Vol] 103 ug/dL 41 - 186 ug/dL [facility] Iron binding capacity [Mass/Vol] 385 ug/dL 232 - 386 ug/dL [facility] Iron saturation [Mass fraction] 27 % 15 - 57 % [facility] VITAMIN D 25 HYDROXYon 12-20 25-hydroxyvitamin D3 [Mass/Vol] 23.6 ng/mL Low 30.0 - 100.0 ng/mL [facility] NM HEPATOBILIARY W EF AND/OR RXon 12-04-2021 [facility] US ABD RT UPPER QUADRANTon 0 11-23-2021 [facility] Absolute lymphocyte counton 11-18-2021 Lymphocytes Auto (Unsp spec) [#/Vol] 1.58 10*3/uL 0.83-4.51 [place] Work Phone: Basophil percentageon 2021 Basophils/100 WBC (Bld) 0.4 % 0-1 [place] Work Phone: Bilirubin [Mass/Vol] 0.20 mg/dL 0.20-1.00 [facility] Work Phone: Comment on above: For patients on eltr ombopag therapy, use of Dimension [place] TBIL is not recommended. Chloride [Moles/Vol] 108 mmol/L 98-107 [facility] Work Phone: Eosinophils/100 WBC (Bld) 0.7 % 0-5 [place] Work Phone: Glucose [Mass/Vol] 95 mg/dL 74-106 [facility] Work Phone: Neutrophils (Bld) [#/Vol] 4.8 10*3/uL 2.0-7.7 [place] Work Phone: Neutrophils/100 WBC (Bld) 67.8 % 47-70 [place] Work Phone: Potassium [Moles/Vol] 4.2 mmol/L 3.5-5.1 [facility] Work Phone: Protein [Mass/Vol] 7.9 g/dL 6.4-8.2 [facility] Work Phone: Sodium [Moles/Vol] 139 mmol/L 136-145 [facility] Work Phone: WBC (Bld) [#/Vol] 7.0 10*3/uL 4.4-11.0 [facility] Work Phone: Blood erythrocytes count (nu mber/volume)on 11-18-2021 RBC (Bld) [#/Vol] 4.74 10*6/uL 4.6-6.2 [facility] Work Phone: [phone] Blood hemoglobin measurement (mass/volume)on 11-18-2021 Hemoglobin (Bld) [Mass/Vol] 9.8 g/dL 13.0-16.5 [place] Work Phone: Blood lymphocytes/100 leukoc yteson 11-18-2021 Lymphocytes/100 WBC (Bld) 22.5 % 19-41 [place] Work Phone: Blood monocytes/100 leukocyt eson 11-18-2021 Monocytes/100 WBC (Bld) 8.3 % 0-10 [place] Work Phone: [phone] Blood platelet mean volumeon 11-18-2021 Platelet mean volume (Bld) [Entitic vol] 10.0 fL 6.2-12.0 [place] Work Phone: Determination of erythrocyte mean corpuscular volume (MCV)on 11-18-2021 MCV (RBC) [Entitic vol] 71.5 fL 80-94 [place] Work Phone: Direct bilirubinon Bilirubin.direct [Mass/Vol] 0.06 mg/dL 0.00-0.30 [place] Work Phone: Hematocrit Auto (Bld) [Volum e fraction]on 11-18-2021 Hematocrit (Bld) [Volume fraction] 33.9 % 40-54 [place] Work Phone: [phone] Laboratory - Chemistry and C hemistry - challengeon 11-18-2021 ALP [Catalytic activity/Vol] 88 U/L 45-117 [place] Work Phone: ALT [Catalytic activity/Vol] 82 U/L 16-61 [place] Work Phone: [phone] CO2 [Moles/Vol] 25.0 mmol/L 21.0-32.0 [place] Work Phone: Globulin (S) [Mass/Vol] 4.2 g/dL 2.2-4.2 [place] Work Phone: Lipase [Catalytic activity/Vol] 247 U/L 73-393 [facility] Work Phone: Urea nitrogen/Creatinine [Mass ratio] 13.9 mg/mg 10-20 [facility] Work Phone: Laboratory - Hematology and Cell countson 11-18-2021 Erythrocyte distribution width (RBC) [Entitic vol] 40.3 fL 35.1-43.9 [place] Work Phone: Erythrocyte distribution width (RBC) [Ratio] 15.8 % 11.6-14.6 [place] Work Phone: Immature granulocytes/100 WBC (Bld) 0.300 % 0.0-0.9 [place] Work Phone: Comment on above: IG% - Immature Granu locytes (promyelocytes, myelocytes and metamyelocytes) > 1% indicates that a LEFT SHIFT is Present. MCH (RBC) [Entitic mass] 20.7 pg 27.0-32.0 [place] Work Phone: Nucleated RBC/100 WBC (Bld) [Ratio] 0 % 0-5 [place] Work Phone: MCHC Auto (RBC) [Mass/Vol]on 11-18-2021 MCHC (RBC) [Mass/Vol] 28.9 g/dL 32-36 [facility] Work Phone: No Panel Informationon 11-18 Estimated Creatinine Clearance Calc 88.30 ml/min [place] Work Phone: Estimated GFR (MDRD) Amer 86 mL/min >60 [place] Work Phone: Comment on above: GFR Calc Estimated GFR (MDRD) Non-Af Amer 71 mL/min >60 [place] Work Phone: Comment on above: Non- GFR Calc Platelets bldon 11-18-2021 Platelets (Bld) [#/Vol] 236 10*3/uL 150-450 [place] Work Phone: Serum or plasma albumin charlene urement (mass/volume)on 11-18-2021 Albumin [Mass/Vol] 3.7 g/dL 3.2-5.0 [facility] Work Phone: Serum or plasma calcium charlene urement (mass/volume)on 11-18-2021 Calcium [Mass/Vol] 9.2 mg/dL 8.5-10.1 [facility] Work Phone: Serum or plasma creatinine m easurement (mass/volume)on 11-18-2021 Creatinine [Mass/Vol] 1.22 mg/dL 0.70-1.30 [facility] Work Phone: Comment on above: The validity of the calculated GFR & GFRAA in patients over 70 years has not been determined. Clinical correlation is essential. Serum or plasma urea nitroge n measurement (mass/volume)on 11-18-2021 Urea nitrogen [Mass/Vol] 17 mg/dL 7-18 [place] Work Phone: Thin prep Papanicolaou smear with manual screeningon 11-18-2021 Thin prep Papanicolaou smear with manual screening 44 U/L 15-37 [place] Work Phone: Thin prep Papanicolaou smear with manual screening 6 5-15 [place] Work Phone: Absolute lymphocyte counton 11-16-2021 Lymphocytes Auto (Unsp spec) [#/Vol] 2.78 10*3/uL 0.83-4.51 [facility] Work Phone: Basophil percentageon 2021 Basophils/100 WBC (Bld) 0.7 % 0-1 [place] Work Phone: Bilirubin [Mass/Vol] 0.30 mg/dL 0.20-1.00 [facility] Work Phone: Comment on above: For patients on eltr ombopag therapy, use of Dimension [place] TBIL is not recommended. Chloride [Moles/Vol] 109 mmol/L 98-107 [facility] Work Phone: Eosinophils/100 WBC (Bld) 1.0 % 0-5 [place] Work Phone: Glucose [Mass/Vol] 88 mg/dL 74-106 [facility] Work Phone: Neutrophils (Bld) [#/Vol] 4.4 10*3/uL 2.0-7.7 [place] Work Phone: Neutrophils/100 WBC (Bld) 54.2 % 47-70 [facility] Work Phone: Potassium [Moles/Vol] 4.2 mmol/L 3.5-5.1 [facility] Work Phone: Protein [Mass/Vol] 8.6 g/dL 6.4-8.2 [facility] Work Phone: Sodium [Moles/Vol] 141 mmol/L 136-145 [facility] Work Phone: WBC (Bld) [#/Vol] 8.1 10*3/uL 4.4-11.0 [facility] Work Phone: Basophil percentage 0 SEEN /hpf [facility] Work Phone: [phone] Bilirubin Test strip Ql (U)o n 11-16-2021 Bilirubin Ql (U) Negative Negative [place] Work Phone: Blood erythrocytes count (nu mber/volume)on 11-16-2021 RBC (Bld) [#/Vol] 4.96 10*6/uL 4.6-6.2 [facility] Work Phone: Blood hemoglobin measurement (mass/volume)on 11-16-2021 Hemoglobin (Bld) [Mass/Vol] 10.4 g/dL 13.0-16.5 [place] Work Phone: Blood lymphocytes/100 leukoc yteson 11-16-2021 Lymphocytes/100 WBC (Bld) 34.5 % 19-41 [place] Work Phone: Blood monocytes/100 leukocyt eson 11-16-2021 Monocytes/100 WBC (Bld) 9.2 % 0-10 [place] Work Phone: Blood platelet mean volumeon 11-16-2021 Platelet mean volume (Bld) [Entitic vol] 10.9 fL 6.2-12.0 [place] Work Phone: [phone] Determination of erythrocyte mean corpuscular volume (MCV)on 11-16-2021 MCV (RBC) [Entitic vol] 73.0 fL 80-94 [place] Work Phone: Hematocrit Auto (Bld) [Volum e fraction]on 11-16-2021 Hematocrit (Bld) [Volume fraction] 36.2 % 40-54 [place] Work Phone: Ketones Test strip Ql (U)on 11-16-2021 Ketones Ql (U) Negative Negative [place] Work Phone: [phone] Laboratory - Chemistry and C hemistry - challengeon 11-16-2021 ALP [Catalytic activity/Vol] 86 U/L 45-117 [place] Work Phone: ALT [Catalytic activity/Vol] 90 U/L 16-61 [place] Work Phone: CO2 [Moles/Vol] 27.0 mmol/L 21.0-32.0 [place] Work Phone: [phone] Globulin (S) [Mass/Vol] 4.6 g/dL 2.2-4.2 [place] Work Phone: Lipase [Catalytic activity/Vol] 246 U/L 73-393 [place] Work Phone: Urea nitrogen/Creatinine [Mass ratio] 14.4 mg/mg 10-20 [place] Work Phone: Laboratory - Hematology and Cell countson 11-16-2021 Erythrocyte distribution width (RBC) [Entitic vol] 40.9 fL 35.1-43.9 [place] Work Phone: Erythrocyte distribution width (RBC) [Ratio] 15.9 % 11.6-14.6 [place] Work Phone: Immature granulocytes/100 WBC (Bld) 0.400 % 0.0-0.9 [place] Work Phone: Comment on above: IG% - Immature Granu locytes (promyelocytes, myelocytes and metamyelocytes) > 1% indicates that a LEFT SHIFT is Present. MCH (RBC) [Entitic mass] 21.0 pg 27.0-32.0 [place] Work Phone: Nucleated RBC/100 WBC (Bld) [Ratio] 0 % 0-5 [place] Work Phone: MCHC Auto (RBC) [Mass/Vol]on 11-16-2021 MCHC (RBC) [Mass/Vol] 28.7 g/dL 32-36 [facility] Work Phone: Mucus LM Ql (Urine sed)on Mucus Ql (Urine sed) 0 SEEN /hpf [facility] Work Phone: Nitrite Test strip Ql (U)on 11-16-2021 Nitrite Ql (U) Negative Negative [place] Work Phone: No Panel Informationon 11-16 Estimated Creatinine Clearance Calc 91.29 ml/min [place] Work Phone: Estimated GFR (MDRD) Amer 89 mL/min >60 [place] Work Phone: Comment on above: GFR Calc Estimated GFR (MDRD) Non-Af Amer 74 mL/min >60 [place] Work Phone: Comment on above: Non- GFR Calc Platelets bldon 11-16-2021 Platelets (Bld) [#/Vol] 307 10*3/uL 150-450 [place] Work Phone: Protein Test strip Ql (U)on 11-16-2021 Protein Ql (U) 15 mg/dl Negative [place] Work Phone: Serum or plasma albumin charlene urement (mass/volume)on 11-16-2021 Albumin [Mass/Vol] 4.0 g/dL 3.2-5.0 [facility] Work Phone: Serum or plasma albumin/glob ulin mass ratioon 11-16-2021 Albumin/Globulin [Mass ratio] 0.9 {ratio} 0.9-2.4 [place] Work Phone: Serum or plasma calcium charlene urement (mass/volume)on 11-16-2021 Calcium [Mass/Vol] 9.5 mg/dL 8.5-10.1 [facility] Work Phone: Serum or plasma creatinine m easurement (mass/volume)on 11-16-2021 Creatinine [Mass/Vol] 1.18 mg/dL 0.70-1.30 [facility] Work Phone: Comment on above: The validity of the calculated GFR & GFRAA in patients over 70 years has not been determined. Clinical correlation is essential. Serum or plasma urea nitroge n measurement (mass/volume)on 11-16-2021 Urea nitrogen [Mass/Vol] 17 mg/dL 7-18 [place] Work Phone: Squamous epithelial cells de tection in urine sediment by light microscopyon 11-16-2021 Epithelial cells.squamous LM Ql (Urine sed) 0 SEEN /hpf [place] Work Phone: Thin prep Papanicolaou smear with manual screeningon 11-16-2021 Thin prep Papanicolaou smear with manual screening 47 U/L 15-37 [place] Work Phone: [phone] Thin prep Papanicolaou smear with manual screening 5 5-15 [place] Work Phone: Urine blood detectionon RBC Ql (U) Negative Negative [place] Work Phone: RBC Ql (U) 0 SEEN /hpf [place] Work Phone: Urine clarityon 11-16-2021 Clarity (U) Clear Clear [place] Work Phone: Urine color determinationon 11-16-2021 Color (U) Yellow Yellow [place] Work Phone: [phone] Urine glucose detectionon Glucose Ql (U) Normal mg/dl Normal [place] Work Phone: Urine leukocyte esterase det ection by dipstickon 11-16-2021 Leukocyte esterase Test strip Ql (U) Negative Negative [place] Work Phone: Urine pHon 11-16-2021 pH (U) 6.0 [pH] [place] Work Phone: Urine sediment bacteria coun t by microscopy (number/high power field)on 11-16-2021 Bacteria LM.HPF (Urine sed) [#/Area] 0 /[HPF] None Seen [place] Work Phone: [phone] Urine specific gravity measu rementon 11-16-2021 Specific gravity (U) [Rel density] 1.015 [place] Work Phone: Urobilinogen Auto test strip Ql (U)on 11-16-2021 Urobilinogen Ql (U) Normal mg/dl Normal [facility] Work Phone: [phone] Absolute lymphocyte counton 08-08-2021 Lymphocytes Auto (Unsp spec) [#/Vol] 1.10 10*3/uL 0.83-4.51 [place] Work Phone: [phone] Basophil percentageon 2021 Basophils/100 WBC (Bld) 0.5 % 0-1 [place] Work Phone: Bilirubin [Mass/Vol] 0.20 mg/dL 0.20-1.00 [facility] Work Phone: [phone] Comment on above: For patients on eltr ombopag therapy, use of Dimension [place] TBIL is not recommended. Chloride [Moles/Vol] 111 mmol/L 98-107 [facility] Work Phone: Eosinophils/100 WBC (Bld) 0.0 % 0-5 [place] Work Phone: [phone] Glucose [Mass/Vol] 142 mg/dL 74-106 [facility] Work Phone: Comment on above: Fasting Glucose resu lt greater than or equal to 126 mg/dL suggests DIABETES MELLITUS per A.D.A. criteria. Neutrophils (Bld) [#/Vol] 6.1 10*3/uL 2.0-7.7 [place] Work Phone: Neutrophils/100 WBC (Bld) 81.6 % 47-70 [place] Work Phone: Potassium [Moles/Vol] 4.5 mmol/L 3.5-5.1 [facility] Work Phone: Protein [Mass/Vol] 7.5 g/dL 6.4-8.2 [facility] Work Phone: Sodium [Moles/Vol] 141 mmol/L 136-145 [facility] Work Phone: WBC (Bld) [#/Vol] 7.4 10*3/uL 4.4-11.0 [facility] Work Phone: Blood erythrocytes count (nu mber/volume)on 08-08-2021 RBC (Bld) [#/Vol] 4.56 10*6/uL 4.6-6.2 [facility] Work Phone: Blood hemoglobin measurement (mass/volume)on 08-08-2021 Hemoglobin (Bld) [Mass/Vol] 9.8 g/dL 13.0-16.5 [place] Work Phone: Blood lymphocytes/100 leukoc yteson 08-08-2021 Lymphocytes/100 WBC (Bld) 14.8 % 19-41 [place] Work Phone: Blood monocytes/100 leukocyt eson 08-08-2021 Monocytes/100 WBC (Bld) 2.7 % 0-10 [place] Work Phone: Blood platelet mean volumeon 08-08-2021 Platelet mean volume (Bld) [Entitic vol] 9.9 fL 6.2-12.0 [place] Work Phone: [phone] Determination of erythrocyte mean corpuscular volume (MCV)on 08-08-2021 MCV (RBC) [Entitic vol] 73.2 fL 80-94 [place] Work Phone: Hematocrit Auto (Bld) [Volum e fraction]on 08-08-2021 Hematocrit (Bld) [Volume fraction] 33.4 % 40-54 [place] Work Phone: [phone] Laboratory - Chemistry and C hemistry - challengeon 08-08-2021 ALP [Catalytic activity/Vol] 87 U/L 45-117 [place] Work Phone: ALT [Catalytic activity/Vol] 60 U/L 16-61 [place] Work Phone: CO2 [Moles/Vol] 22.0 mmol/L 21.0-32.0 [place] Work Phone: [phone] Globulin (S) [Mass/Vol] 4.3 g/dL 2.2-4.2 [place] Work Phone: Urea nitrogen/Creatinine [Mass ratio] 13.1 mg/mg 10-20 [place] Work Phone: Laboratory - Hematology and Cell countson 08-08-2021 Erythrocyte distribution width (RBC) [Entitic vol] 43.5 fL 35.1-43.9 [place] Work Phone: [phone] Erythrocyte distribution width (RBC) [Ratio] 16.7 % 11.6-14.6 [place] Work Phone: [phone] Immature granulocytes/100 WBC (Bld) 0.400 % 0.0-0.9 [place] Work Phone: [phone] Comment on above: IG% - Immature Granu locytes (promyelocytes, myelocytes and metamyelocytes) > 1% indicates that a LEFT SHIFT is Present. MCH (RBC) [Entitic mass] 21.5 pg 27.0-32.0 [place] Work Phone: Nucleated RBC/100 WBC (Bld) [Ratio] 0 % 0-5 [place] Work Phone: MCHC Auto (RBC) [Mass/Vol]on 08-08-2021 MCHC (RBC) [Mass/Vol] 29.3 g/dL 32-36 [facility] Work Phone: No Panel Informationon 08-08 D-Dimer Quantitative (PE/DVT) 0.37 FEU/ug/m 0.27-0.49 [place] Work Phone: Comment on above: NORMAL D-Dimer level (<0.50) indicates no DVT or PE. Estimated Creatinine Clearance Calc 88.30 ml/min [place] Work Phone: Estimated GFR (MDRD) Amer 86 mL/min >60 [place] Work Phone: Comment on above: GFR Calc Estimated GFR (MDRD) Non-Af Amer 71 mL/min >60 [place] Work Phone: Comment on above: Non- GFR Calc Troponin I High Sensitivity 4 pg/mL 3.0-78.0 [place] Work Phone: Comment on above: Please Note: New Digna t Units and Gender Specific Reference Ranges. For more information see Policy Stat Procedure [place] High Sensitivity Troponin (TNIH) and attachments. Platelets bldon 08-08-2021 Platelets (Bld) [#/Vol] 344 10*3/uL 150-450 [place] Work Phone: Serum or plasma albumin charlene urement (mass/volume)on 08-08-2021 Albumin [Mass/Vol] 3.2 g/dL 3.2-5.0 [facility] Work Phone: Serum or plasma albumin/glob ulin mass ratioon 08-08-2021 Albumin/Globulin [Mass ratio] 0.7 {ratio} 0.9-2.4 [place] Work Phone: Serum or plasma calcium charlene urement (mass/volume)on 08-08-2021 Calcium [Mass/Vol] 8.5 mg/dL 8.5-10.1 [facility] Work Phone: Serum or plasma creatinine m easurement (mass/volume)on 08-08-2021 Creatinine [Mass/Vol] 1.22 mg/dL 0.70-1.30 [facility] Work Phone: Comment on above: The validity of the calculated GFR & GFRAA in patients over 70 years has not been determined. Clinical correlation is essential. Serum or plasma urea nitroge n measurement (mass/volume)on 08-08-2021 Urea nitrogen [Mass/Vol] 16 mg/dL 7-18 [place] Work Phone: [phone] Thin prep Papanicolaou smear with manual screeningon 08-08-2021 Thin prep Papanicolaou smear with manual screening 37 U/L 15-37 [place] Work Phone: [phone] Thin prep Papanicolaou smear with manual screening 8 5-15 [place] Work Phone: Absolute lymphocyte counton 07-27-2021 Lymphocytes Auto (Unsp spec) [#/Vol] 1.63 10*3/uL 0.83-4.51 [place] Work Phone: [phone] Basophil percentageon 2021 Basophils/100 WBC (Bld) 0.3 % 0-1 [place] Work Phone: [phone] Chloride [Moles/Vol] 111 mmol/L 98-107 [facility] Work Phone: [phone] Eosinophils/100 WBC (Bld) 0.9 % 0-5 [place] Work Phone: [phone] Glucose [Mass/Vol] 183 mg/dL 74-106 [facility] Work Phone: Comment on above: Fasting Glucose resu lt greater than or equal to 126 mg/dL suggests DIABETES MELLITUS per A.D.A. criteria. Neutrophils (Bld) [#/Vol] 1.5 10*3/uL 2.0-7.7 [place] Work Phone: [phone] Neutrophils/100 WBC (Bld) 43.2 % 47-70 [place] Work Phone: Potassium [Moles/Vol] 4.0 mmol/L 3.5-5.1 [facility] Work Phone: Sodium [Moles/Vol] 141 mmol/L 136-145 [facility] Work Phone: WBC (Bld) [#/Vol] 3.4 10*3/uL 4.4-11.0 [facility] Work Phone: Blood erythrocytes count (nu mber/volume)on 07-27-2021 RBC (Bld) [#/Vol] 4.76 10*6/uL 4.6-6.2 [facility]: Blood hemoglobin measurement (mass/volume)on 07-27-2021 Hemoglobin (Bld) [Mass/Vol] 9.9 g/dL 13.0-16.5 [place] Work Phone: Blood lymphocytes/100 leukoc yteson 07-27-2021 Lymphocytes/100 WBC (Bld) 47.9 % 19-41 [place] Work Phone: Blood monocytes/100 leukocyt eson 07-27-2021 Monocytes/100 WBC (Bld) 7.4 % 0-10 [place] Work Phone: Blood platelet mean volumeon 07-27-2021 Platelet mean volume (Bld) [Entitic vol] 9.5 fL 6.2-12.0 [place] Work Phone: [phone] Determination of erythrocyte mean corpuscular volume (MCV)on 07-27-2021 MCV (RBC) [Entitic vol] 73.1 fL 80-94 [place] Work Phone: Hematocrit Auto (Bld) [Volum e fraction]on 07-27-2021 Hematocrit (Bld) [Volume fraction] 34.8 % 40-54 [place] Work Phone: Laboratory - Chemistry and C hemistry - challengeon 07-27-2021 CO2 [Moles/Vol] 26.0 mmol/L 21.0-32.0 [place] Work Phone: Urea nitrogen/Creatinine [Mass ratio] 14.4 mg/mg 10-20 [place] Work Phone: Laboratory - Hematology and Cell countson 07-27-2021 Erythrocyte distribution width (RBC) [Entitic vol] 43.9 fL 35.1-43.9 [place] Work Phone: Erythrocyte distribution width (RBC) [Ratio] 16.7 % 11.6-14.6 [place] Work Phone: Immature granulocytes/100 WBC (Bld) 0.300 % 0.0-0.9 [place] Work Phone: Comment on above: IG% - Immature Granu locytes (promyelocytes, myelocytes and metamyelocytes) > 1% indicates that a LEFT SHIFT is Present. MCH (RBC) [Entitic mass] 20.8 pg 27.0-32.0 [place] Work Phone: Nucleated RBC/100 WBC (Bld) [Ratio] 0 % 0-5 [place] Work Phone: MCHC Auto (RBC) [Mass/Vol]on 07-27-2021 MCHC (RBC) [Mass/Vol] 28.4 g/dL 32-36 [facility] Work Phone: No Panel Informationon 07-27 D-Dimer Quantitative (PE/DVT) 0.49 FEU/ug/m 0.27-0.49 [place] Work Phone: Comment on above: NORMAL D-Dimer level (<0.50) indicates no DVT or PE. Estimated Creatinine Clearance Calc 110.99 ml/min [place] Work Phone: Estimated GFR (MDRD) Amer 111 mL/min >60 [place] Work Phone: Comment on above: GFR Calc Estimated GFR (MDRD) Non-Af Amer 92 mL/min >60 [place] Work Phone: Comment on above: Non- GFR Calc Troponin I High Sensitivity 7 pg/mL 3.0-78.0 [place] Work Phone: Comment on above: Please Note: New Digna t Units and Gender Specific Reference Ranges. For more information see Policy Stat Procedure [place] High Sensitivity Troponin (TNIH) and attachments. Platelets bldon 07-27-2021 Platelets (Bld) [#/Vol] 232 10*3/uL 150-450 [place] Work Phone: Serum or plasma calcium charlene urement (mass/volume)on 07-27-2021 Calcium [Mass/Vol] 8.0 mg/dL 8.5-10.1 oste r [facility] Work Phone: Serum or plasma creatinine m easurement (mass/volume)on 07-27-2021 Creatinine [Mass/Vol] 0.98 mg/dL 0.70-1.30 [facility] ster [facility] Work Phone: Comment on above: The validity of the calculated GFR & GFRAA in patients over 70 years has not been determined. Clinical correlation is essential. Serum or plasma urea nitroge n measurement (mass/volume)on 07-27-2021 Urea nitrogen [Mass/Vol] 14 mg/dL 7-18 [place] Work Phone: Thin prep Papanicolaou smear with manual screeningon 07-27-2021 Thin prep Papanicolaou smear with manual screening 4 5-15 [place] Work Phone: Provider Note - ED v2on Provider Note - ED v2 Provider Note - ED v2: Chart Review: ED NOTES ED NOTES: Patient presents with right calf pain since yesterday. He has no edema, he has no chest pain or shortness of breath. He denies any trauma. He has a history of DVTs, he has no longer anticoagulated. Review of Systems Patient has no fever or chills Patient denies any chest pain or palpitations There is no shortness of breath, There is no nausea vomiting diarrhea or abdominal pain No recent rash, no noticeable pallor Patient has no paresthesias or weakness of the legs Right calf pain as in history of present illness, no trauma Physical exam Vitals reviewed Does not appear in significant distress Heart- regular rate with normal pulses Lungs- clear lungs bilaterally normal inspiration and expiration without tachypnea GI- abdomen is soft and nontender there is no mass, no guarding - deferred Musculoskeletal- moves all extremities without any signs of trauma, there is right calf pain although there is no edema. There is no pain in the proximal leg region Skin- no petechia, no rash, Neurological-normal strength and sensation Psych- normal mood, patient is in good spirits. HISTORY OF PRESENTING ILLNESS VINNIE is a 34 year old Male and was seen by me at 18-Aug-2019 09:24 for a chief complaint of lower leg pain (right calf swelling and tednerness x 2days. pt denies injury. no redness/warmth noted to the area. pt reports having trouble bearing weight on the leg. hx of dvt in left leg. pt denies cp/denies sob.)(1). Triage Information: Most recent Vital Sign Value Date Temp (F): 98.2 08-18-2019 09:28 Temp (C): 36.8 08-18-2019 09:28 Heart Rate (beats/min): 87 08-18-2019 09:28 Respirations (breaths/min): 20 08-18-2019 09:28 SpO2 (%): 99 08-18-2019 09:28 BP Systolic (mm Hg): 124 08-18-2019 09:28 BP Diastolic (mm Hg): 64 08-18-2019 09:28 PAST MEDICAL HISTORY ATTESTATION: I have reviewed and confirmed nurse's/medic's notes for patient's medications, allergies, medical history, and surgical history ALLERGIES/INTOLERANCES: Allergy Allergen: NKDA Type: Reaction: Allergen: Cinnamon Type: Food Reaction: Swelling/Edema Throat Swelling HEALTH HISTORY: No documented data. OUTPATIENT MEDICATIONS: Home Medications Review Status for Reconciliation: N/A Med Status: Patient Currently Takes Medications Drug Name: ibuprofen 800 mg oral tablet Instructions: 1 tab(s) orally 3 times a day Drug Name: penicillin V potassium 500 mg oral tablet Instructions: 1 tab(s) orally 4 times a day Drug Name: traMADol 50 mg oral tablet Instructions: 1 tab(s) orally every 8 hours Drug Name: Bentyl 20 mg oral tablet Instructions: 1 tab(s) orally every 8 hours SIGNIFICANT EVENTS: Past Medical History Description:Obstructive Sleep Apnea Description:Bipolar type II Description:Degenerative lower spine disc disease Description:Gastroesophageal Reflux Disorder (GERD) Past Surgical History Description:Tooth Extraction Description:Tonsillectomy & Adenoidectomy MEDICAL DECISION MAKING/ED COURSE MDM/ED COURSE: Patient is found to have a DVT. I will treat with anticoagulation especially that this is his second DVT. Otherwise he can follow up with PCP. CLINICAL IMPRESSION Diagnosis/Annotation: ED Dx Name:DVT (deep venous thrombosis) Code:I82.409 Dispostion: discharged Type: home ATTESTATION CRITICAL CARE TIME Is this a critically ill patient: no Electronic Signatures: Vinnie Kelly) (Signed 18-Aug-2019 11:33) Authored: Provider Note - ED v2 Last Updated: 18-Aug-2019 11:33 by Vinnie Kelly) References: 1. Data Referenced From Triage - ED 18-Aug-2019 09:28 Normal [facility] Risk Screen - Adult Emergenc yon 08-18-2019 Risk Screen - Adult Emergency Preferred Language: Preferred Language: Preferred Language for Discussing Health Care (patient/designee)[place] Advanced Directives: Advance Directive/DNRno Family Violence Adult: Abuse Screen: Are you or have you been threatened or abused physically, emotionally, or sexually by anyoneno Learning Assessment (Patient): Learning Assessment (Patient): Patient is Able to be Assessed for Learningyes Factors Influencing Readiness to Learnacuteness of illness Factors that Impact Ability to Learnnone Devices/Methods Used to Communicatenone Learning Preferencesverbal instruction Cultural Considerationsnone Developmental Considerationsnone Druze Considerationsnone Learning Assessment (Other Learner): Learning Assessment (Other Learner): Other learner availableno Pressure Injury/TB/Substance: Pressure Injury: Do you have a coughno Admission Risk Screen: Significant IndicatorsComplete CAGE: CAGE: Is this an injured patient at a Trauma Center ([facility]/[place]): no Electronic Signatures: Lilibeth Singletary (ERIN) (Signed 18-Aug-2019 11:57) Authored: Preferred Language, Advanced Directives, Family Violence Adult, Learning Assessment (Patient), Learning Assessment (Other Learner), Pressure Injury/TB/Substance, CAGE Last Updated: 18-Aug-2019 11:57 by Lilibeth Singletary (ERIN) Normal [facility] Triage - EDon 08-18-2019 Triage - ED Chart Review: CHIEF COMPLAINT VINNIE OLIVAREZ is a Male patient with a chief complaint of lower leg pain (right calf swelling and tednerness x 2days. pt denies injury. no redness/warmth noted to the area. pt reports having trouble bearing weight on the leg.). Onset of the Complaint: 16-Aug-2019 Triage Date/Time: 18-Aug-2019 09:28 Pain Rating (0-10): 8 = Severe Pain location: right calf Vital Signs: Temperature: 98.2F ( 36.8C) Blood Pressure: 124/64 Mean: Heart Rate: 87 Respiratory Rate: 20 Pulse Oximetry: 99% Height: 5 feet 11.00 inches. 180.3 CM Weight: 300.0 pounds. Calculated 136.0 kg. (stated) Calculated BMI (kg/m2): 41.835 Calculated BSA (m2) 2.61 [place] Coma Scale: Best Eye Response: (E4) spontaneous Best Motor Response: (M6) obeys commands Best Verbal Response: (V5) oriented Jones Score: 15 Cough lasting greater than 3 weeks: no Patient immunocompromised related to: N/A Travel outside of [facility]: no Allergies: no Patient has homicidal thoughts: no DOMI: 3V Symptom Notes: . Symptoms Are POSITIVE For: difficulty walking and pain (describe). Symptoms Are Negative For: abrasion, bleeding, bruising, deformity, difficulty bending, numbness, decreased ROM and tingling. Risk Screens Suicide Risk Screen In the Past Month: Have you wished you were or wished you could go to sleep and not wake up no In the Past Month: Have you had any actual thoughts of killing yourself no In Your Lifetime: Have you ever done anything, started to do anything, or prepared to do anything to end your life no Kuo Fall Scale Screening Has the patient fallen before (or is the patient in the ED as a result of a fall) has not had a fall Does the patient have an impaired gait has impaired gait Is the patient cognitively impaired not cognitively impaired Kuo Fall Scale History of falling (immediate or previous) no (0) Secondary Diagnosis yes (15) Intravenous Therapy/ Heparin/Saline Lock yes (20) Gait/Transferring normal/bedrest/wheelchair (0) Ambulatory Aids none/bedrest/nurse assist (0) Mental Status oriented to own ability (0) Kuo Fall Risk Score: 35 Interventions: Kuo Fall Interventions: *LOW INTERVENTIONS PLUS: * falls risk band/sticker applied to patient, *yellow non-skid footwear, *instruct to call for assistance before getting out of bed, *bed/chair/bedside commode/toilet alarms, *sensory devices/ambulatory aides available and in reach, *medications reviewed for potential side effects and care planning. 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 The airway is open and patent. Breathing spontaneous and unlabored with clear breath sounds bilaterally. Circulation is normal with good peripheral pulses. Skin is warm and dry and color is normal for race. TRAVEL HISTORY Travel Exposure History: NO travel to International locations in the past 30 days Past Medical History: Past Medical History Reviewedyes Electronic Signatures: Rufina Jacobs (RN) (Signed 18-Aug-2019 09:32) Authored: Triage, Past Medical History Last Updated: 18-Aug-2019 09:32 by Rufina Jacobs (RN) Normal [facility] Venous Duplex Ultra sound DVTon 08-18-2019 [facility] Venous Duplex Ultrasound DVT [place] [id number] and Vascular Lab Report Lower Venous Duplex Ultrasound Patient Name: VINNIE Silva Physician: [id number] Brittnee Garcia MD Study Date: 08/18/2019 Referring Physician: Vinnie Kelly MD MRN/PID: [id number] PCP: Accession/Order#: [id number] CC Report to: Date of : 1985 Technologist: Nivia Cisse RVT Gender: M Technologist 2: Admission Status: Emergency Location Performed: [facility] Diagnosis/ICD: M79.604-Pain in right leg Procedure/CPT: 64547 Peripheral venous duplex scan for DVT Limited-[id number] CRITICAL RESULT Critical Result: Told ERIN Mcelroy patient positive for dvt of the right lower extremity. Notification called to ERIN Mcelroy on 08/18/2019 at 10:32:09 AM by TB. CONCLUSIONS: Right Lower Venous: There is acute occlusive deep vein thrombosis visualized in the posterior tibial and peroneal veins. Left Lower Venous: Left common femoral vein is negative for deep vein thrombus. Additional Findings: Imaging AND Doppler Findings: Right Compressible Thrombus Flow CFV Yes None Spontaneous/Phasic PFV Yes None FV Proximal Yes None Spontaneous/Phasic FV Mid Yes None FV Distal Yes None Popliteal Yes None Spontaneous/Phasic Peroneal No Acute occlusive PTV No Acute occlusive [id number] Brittnee Garcia MD Final Normal [facility] Clinical Event Note-urine cu ltureon 03-09-2019 Clinical Event Note-urine culture Event: Topic: urine culture Details: Reviewed chart for urine culture results. Per TD PA trmt s/b Amoxicillin 500mg PO TID x 10 days # 30 no refills. I spoke with pt who understands C&S status and POC. Pt requested his script be called to [facility] [phone]. Script called in for pt. Electronic Signatures: Sintia Dick (NURSING STAFF DEVELOPMENT COORDINATOR) (Signed 09-Mar-2019 12:17) Authored: Event Last Updated: 09-Mar-2019 12:17 by Sintia Dick ([facility]) Normal [facility] CBC AND DIFFERENTIALon 03-03 % AUTOMATED IMMATURE GRAN 0.4 % Normal 0.0 - 0.9 [facility] Comment on above: Result Comment: Perc ent differential counts (%) should be interpreted in the context of the absolute cell counts (cells/L). Performed By: #### C BCDF #### [facility] [address] [place] [address] Basophils (Bld) [#/Vol] 0.06 10*3/uL Normal 0.00 - 0.10 [facility] Comment on above: Performed By: #### C BCDF #### [facility] [address] [place] [address] Basophils/100 WBC (Bld) 0.8 % Normal 0.0 - 2.0 [facility] Comment on above: Performed By: #### C BCDF #### [facility] [address] [place] [address] Eosinophils (Bld) [#/Vol] 0.17 10*3/uL Normal 0.00 - 0.70 [facility] Comment on above: Performed By: #### C BCDF #### [facility] [address] [place] [address] Eosinophils/100 WBC (Bld) 2.3 % Normal 0.0 - 6.0 [facility] Comment on above: Performed By: #### C BCDF #### [address] [place] [address] Erythrocyte distribution width (RBC) [Ratio] 17.2 % High 11.5 - 14.5 [facility] Comment on above: Performed By: #### C BCDF #### [address] [place] [address] Hematocrit (Bld) [Volume fraction] 32.0 % Low 41.0 - 52.0 [facility] Comment on above: Performed By: #### C BCDF #### [address] [place] [address] Hemoglobin (Bld) [Mass/Vol] 9.1 g/dL Low 13.5 - 17.5 [facility] Comment on above: Performed By: #### C BCDF #### [address] [place] [address] Lymphocytes (Bld) [#/Vol] 2.57 10*3/uL Normal 1.20 - 4.80 [facility] Comment on above: Performed By: #### C BCDF #### [place] [address] [place] [address] Lymphocytes/100 WBC (Bld) 35.4 % Normal 13.0 - 44.0 [facility] Comment on above: Performed By: #### C BCDF #### [facility] [address] [place] [address] MCHC (RBC) [Mass/Vol] 28.4 g/dL Low 32.0 - 36.0 [facility] Comment on above: Performed By: #### C BCDF #### [address] [place] [address] MCV (RBC) [Entitic vol] 74 fL Low 80 - 100 [facility] Comment on above: Performed By: #### C BCDF #### [address] [address] Monocytes (Bld) [#/Vol] 0.78 10*3/uL Normal 0.10 - 1.00 [facility] Comment on above: Performed By: #### C BCDF #### [address] [address] Monocytes/100 WBC (Bld) 10.7 % Normal 2.0 - 10.0 [facility] Comment on above: Performed By: #### C BCDF #### [address] [address] Neutrophils (Bld) [#/Vol] 3.65 10*3/uL Normal 1.20 - 7.70 [facility] Comment on above: Performed By: #### C BCDF #### [address] [address] Neutrophils/100 WBC (Bld) 50.4 % Normal 40.0 - 80.0 [facility] Comment on above: Performed By: #### C BCDF #### [address] [address] Nucleated RBC/100 WBC (Bld) [Ratio] 0.0 /100 WBC Normal 0.0 - 0.0 [facility] Comment on above: Performed By: #### C BCDF #### [address] [address] Platelets (Bld) [#/Vol] 313 10*3/uL Normal 150 - 450 [facility] Comment on above: Performed By: #### C BCDF #### [address] [address] RBC (Bld) [#/Vol] 4.33 x10E12/L Low 4.50 - 5.90 [facility] Comment on above: Performed By: #### C BCDF #### [address] [address] WBC (Bld) [#/Vol] 7.3 10*3/uL Normal 4.4 - 11.3 [facility] Comment on above: Performed By: #### C BCDF #### [address] [place] [address] COMPREHENSIVE PANELon 2018 Albumin [Mass/Vol] 3.9 g/dL Normal 3.4 - 5.0 [facility] Comment on above: Performed By: #### C MP #### [address] [place] [address] ALP [Catalytic activity/Vol] 79 U/L Normal 33 - 120 [facility] Comment on above: Performed By: #### C MP #### [address] [place] [address] ALT [Catalytic activity/Vol] 44 U/L Normal 10 - 52 [facility] Comment on above: Result Comment: Anju ents treated with Sulfasalazine may generate falsely decreased results for ALT. Performed By: #### C MP #### [address] [place] [address] Anion gap [Moles/Vol] 11 mmol/L Normal 10 - 20 [facility] Comment on above: Performed By: #### C MP #### [address] [place] [address] AST [Catalytic activity/Vol] 26 U/L Normal 9 - 39 [facility] Comment on above: Performed By: #### C MP #### [address] [place] [address] Bilirubin [Mass/Vol] 0.3 mg/dL Normal 0.0 - 1.2 [facility] Comment on above: Performed By: #### C MP #### [address] [place] [address] Calcium [Mass/Vol] 9.3 mg/dL Normal 8.6 - 10.3 [facility] Comment on above: Performed By: #### C MP #### [address] [place] [address] Chloride [Moles/Vol] 107 mmol/L Normal 98 - 107 [facility] Comment on above: Performed By: #### C MP #### [address] [place] [address] Creatinine [Mass/Vol] 1.14 mg/dL Normal 0.50 - 1.30 [facility] Comment on above: Performed By: #### C MP #### [address] [place] [address] GFR- AM. >60 Normal >60 [facility] Comment on above: Result Comment: CALC ULATIONS OF ESTIMATED GFR ARE PERFORMED USING THE MDRD STUDY EQUATION FOR THE IDMS-TRACEABLE CREATININE METHODS. CLIN CHEM 2007;53:766-72 Performed By: #### C MP #### [address] [place] [address] GFR-NON AM. >60 Normal >60 [facility] Comment on above: Performed By: #### C MP #### [address] [place] [address] Glucose [Mass/Vol] 81 mg/dL Normal 74 - 99 [facility] Comment on above: Performed By: #### C MP #### [address] [place] [address] HCO3 (Bld) [Moles/Vol] 26 mmol/L Normal 21 - 32 [facility] Comment on above: Performed By: #### C MP #### [address] [place] [address] Potassium [Moles/Vol] 4.2 mmol/L Normal 3.5 - 5.3 [facility] Comment on above: Performed By: #### C MP #### [address] [place] [address] Protein [Mass/Vol] 6.7 g/dL Normal 6.4 - 8.2 [facility] Comment on above: Performed By: #### C MP #### [address] [place] [address] Sodium [Moles/Vol] 140 mmol/L Normal 136 - 145 [facility] Comment on above: Performed By: #### C MP #### [address] [address] Urea nitrogen [Mass/Vol] 12 mg/dL Normal 6 - 23 [facility] Comment on above: Performed By: #### C #### [facility] [address] [place] [address] CT [facility]BDOM[facility] ABDOMEN AND PELVIS WITH CONTRAST Patient Name: VINNIE OLIVAREZ STUDY: CT ABDOMEN AND PELVIS WITH CONTRAST; 03/02/2019 11:13 pm INDICATION: rlq abd pain. COMPARISON: 07/15/2015 ACCESSION NUMBER(S): [id number] ORDERING CLINICIAN: CARMEN MINA TECHNIQUE: CT of the abdomen and pelvis was performed. Contiguous axial images were obtained at 3 mm slice thickness through the abdomen and pelvis. Coronal and sagittal reconstructions at 3 mm slice thickness were performed. IV contrast was administered. FINDINGS: LOWER CHEST: The base of the heart and lungs are within normal limits. There is no suspicious pulmonary masses or nodules. No pleural effusion or airspace disease is present. There is a moderate hiatal hernia. ABDOMEN: The liver, spleen, pancreas, and right adrenal glands are within normal limits. The gallbladder is within normal limits.There is a new left adrenal nodule measuring 4.8 x 5.4 cm. KIDNEYS AND URETERS AND BLADDER: The kidneys are without stones or hydronephrosis. The ureters run an unobstructed course to the bladder. Bladder is collapsed with mild concentric wall thickening. Prostate is normal size and configuration. BOWEL: The bowel is unobstructed without inflammatory change.There is no free air or free fluid. Appendix is normal in the right lower quadrant. SOFT TISSUES AND ABDOMINAL WALL: The soft tissues are within normal limits. No hernias are identified. BONES: There is mild multilevel degenerative disc disease of the thoracic spine with anterior spurring. IMPRESSION: No acute intra-abdominal process. Moderate hiatal hernia. Normal appendix. New left adrenal nodule measuring 5.4 x 4.8 cm. Consider correlation with an adrenal protocol CT versus MRI evaluation for further analysis. Incomplete distention of the bladder with mild concentric wall thickening which is nonspecific. Consider correlation with urinalysis. Electronically signed by: MARY GELLER MD Normal [facility] LACTATEon 03-03-2019 Lactate [Moles/Vol] 1.6 mmol/L Normal 0.4 - 2.0 [facility] Comment on above: Result Comment: Keli puncture immediately after or during the administration of Metamizole may lead to falsely low results. Testing should be performed immediately prior to Metamizole dosing. Performed By: #### L ACT #### [facility] [address] [place] [address] Provider Note - ED v2on 02-13 Provider Note - ED v2 Provider Note - ED v2: Chart Review: ED NOTES ED NOTES: HPI: 33-year-old male, otherwise healthy, presents with abdominal pain as well as bloody stools. His symptoms started this afternoon. Some cramping in his lower abdomen, specifically more towards the right. He then had a normal bowel movement but then upon wiping he saw some bright red blood. He denies having any pain with the bowel movement. About 3 years ago, he had a similar episode of bloody stools and had a colonoscopy that was negative. Since that time, he has had not had any issues until today. Denies any recent fevers or chills, nausea or vomiting or diarrhea. Review of Systems: A complete 14 point review of systems was done and is negative except as documented in the history of present illness. Negative except as documented in history of present illness Constitutional: Negative except as documented in history of present illness Skin: Negative except as documented in history of present illness Head: Negative except as documented in history of present illness EENT: Negative except as documented in history of present illness Neck: Negative except as documented in history of present illness Cardiac:Negative except as documented in history of present illness Pulmonary: Negative except as documented in history of present illness GI: Negative except as documented in history of present illness : Negative except as documented in history of present illness Musculoskeletal: Negative except as documented in history of present illness Hematologic: Negative except as documented in history of present illness Endocrine:Negative except as documented in history of present illness Neurological: Negative except as documented in history of present illness Psych: Negative except as documented in history of present illness Physical Exam: Appearance: Alert, No acute distress. Well nourished & well hydrated. Skin: Warm, dry, intact, no rash Head: Normocephalic, atraumatic Eyes: PERRLA, EOMs intact, Conjunctiva pink with no redness or exudates. Corneal and anterior chambers are clear. Eyelids without lesion. No scleral icterus. ENT: Nares patent. Moist mucous membranes. Neck: Supple. Trachea at midline. No meningismus Pulmonary: Lungs clear to auscultation bilaterally. No rales, rhonchi or wheezing. No accessory muscle use or stridor. Cardiac: Normal S1, S2 without murmur. No JVD Abdomen: Soft, mild rlq ttp, active bowel sounds. No rebound or guarding. Heme neg on rectal exam, nontender, no hemorrhoid or fissures Musculoskeletal: Full range of motion of all joints. No tenderness or deformity. Pulses present equally bilaterally. No cyanosis, clubbing, or edema. Neurological: A&O x3. No focal neuro deficits. CN II through XII grossly intact. Normal motor observed. Normal speech observed. Normal coordination observed. Psychiatric: Cooperative, Appropriate mood and affect. - Physical exam findings, workup, treatment and results were discussed and agreed upon with my supervising physician throughout the patients stay. HISTORY OF PRESENTING ILLNESS VINNIE is a 33 year old Male and was seen by me at 02-Mar-2019 22:26 for a chief complaint of bloody stools (Patient states he had a BM a couple hours ago. Patient states he had abdominal pain at that time but figured it was gas. When patient wiped he noticed bright red blood on toilet paper. Since then patient has felt lightheaded with increased discomfort to RLQ.) . Triage Information: Most recent Vital Sign Value Date Temp (F): 98.4 03-02-2019 21:44 Temp (C): 36.9 03-02-2019 21:44 Heart Rate (beats/min): 76 03-02-2019 21:44 Respirations (breaths/min): 18 03-02-2019 21:44 SpO2 (%): 99 03-02-2019 21:44 BP Systolic (mm Hg): 146 03-02-2019 21:44 BP Diastolic (mm Hg): 74 03-02-2019 21:44 PAST MEDICAL HISTORY ATTESTATION: I have reviewed and confirmed nurse's/medic's notes for patient's medications, allergies, medical history, and surgical history ALLERGIES/INTOLERANCES: Allergy Allergen: NKDA Type: Reaction: Allergen: Cinnamon Type: Food Reaction: Swelling/Edema Throat Swelling HEALTH HISTORY: No documented data. OUTPATIENT MEDICATIONS: Home Medications Review Status for Reconciliation: Not Done Med Status: Patient Currently Takes Medications Drug Name: ibuprofen 800 mg oral tablet Instructions: 1 tab(s) orally 3 times a day Drug Name: penicillin V potassium 500 mg oral tablet Instructions: 1 tab(s) orally 4 times a day Drug Name: traMADol 50 mg oral tablet Instructions: 1 tab(s) orally every 8 hours Drug Name: Bentyl 20 mg oral tablet Instructions: 1 tab(s) orally every 8 hours SIGNIFICANT EVENTS: Past Medical History Description:Obstructive Sleep Apnea Description:Bipolar type II Description:Degenerative lower spine disc disease Description:Gastroesophageal Reflux Disorder (GERD) Past Surgical History Description:Tooth Extraction Description:Tonsillectomy & Adenoidectomy RESULTS/VITAL SIGNS RESULTS: Recent Lab Results: I have reviewed these laboratory results: Complete Blood Count + Differential 02-Mar-2019 23:02:00 ResultValue White Blood Cell Count 7.3 Nucleated Erythrocyte Count 0.0 Red Blood Cell Count 4.33 L HGB 9.1 L HCT 32.0 L MCV 74 L MCHC 28.4 L PLT 313 RDW-CV 17.2 H Neutrophil % 50.4 Immature Granulocytes % 0.4 Lymphocyte % 35.4 Monocyte % 10.7 Eosinophil % 2.3 Basophil % 0.8 Neutrophil Count 3.65 Lymphocyte Count 2.57 Monocyte Count 0.78 Eosinophil Count 0.17 Basophil Count 0.06 Comprehensive Metabolic Panel 02-Mar-2019 23:02:00 ResultValue Glucose, Serum 81 NA 140 K 4.2 CL 107 Bicarbonate, Serum 26 Anion Gap, Serum 11 BUN 12 CREAT 1.14 GFR-Non >60 GFR- >60 Calcium, Serum 9.3 ALB 3.9 ALKP 79 T Pro 6.7 T Bili 0.3 Alanine Aminotransferase, Serum 44 Aspartate Transaminase, Serum 26 Urinalysis 02-Mar-2019 23:02:00 ResultValue Color, Urine SATISH Reference Range: STRAW,YELLOW Appearance, Urine HAZY Specific [place], Urine 1.024 pH, Urine 6.0 Protein, Urine 30 (1+) A Glucose, Urine NEGATIVE Blood, Urine NEGATIVE Ketones, Urine NEGATIVE Bilirubin, Urine NEGATIVE Urobilinogen, Urine <2.0 Nitrite, Urine NEGATIVE Leukocyte Esterase, Urine TRACE A Urinalysis, Microscopic 02-Mar-2019 23:02:00 ResultValue White Cells 2 Red Blood Cells none A Epithelial Cells, Squamous 4 Mucous 1+ Amorphous Crystals 2+ Lactate, Level 02-Mar-2019 23:02:00 ResultValue Lactate, Level 1.6 Radiology Results: Impression: No acute intra-abdominal process. Moderate hiatal hernia. Normal appendix. New leftadrenal nodule measuring 5.4 x 4.8 cm. Consider correlation with an adrenal protocol CT versus MRI evaluation for further analysis. Incomplete distention of the bladder with mild concentric wall thickening which is nonspecific. Consider correlation with urinalysis. CT Abdomen and Pelvis with Contrast [Mar 02 2019 11:22PM] VITAL SIGNS: T PRBP SpO2O2(LPM) %FiO2 Method 03-Mar-2019 00:20:[id number] 99 room air, no respiratory support 02-Mar-2019 21:44:[id number]/74 99 room air, no respiratory support MEDICAL DECISION MAKING/ED COURSE MDM/ED COURSE: Patient was seen and examined. Well appearing male presents with abdominal pain as well as bright red blood in his stools. Symptoms started earlier this afternoon. Had a normal caliber stool but had some bright red blood on the tissue paper. On exam, his abdomen is mildly tender in the right lower quadrant. He is heme-negative on rectal exam, nontender without fissures or hemorrhoids present. Summary of old records were reviewed. Reevaluation: Vitals stable, afebrile. On repeat exam- Lungs remain CTAB. C RRR. Abd remains soft NT, ND. Remains neuro intact A&o X 3. Well appearing, non toxic. Resting comfortably without complaints and feeling better. I discussed the results of the labs and imaging with the patient. Labs show a low H&H at 9.1/32. Patient reports that he does have a history of anemia but has not really been followed for it. Remainder labs essentially unremarkable. CT the abdomen and pelvis is also negative. Patient understands the need to follow up with primary care regarding his anemia. We'll also give him GI to follow up with regarding the bright red blood in his stool. Plan and Disposition: Home going. Patient asked to follow-up with the primary physician in the next 2-3 days regarding his anemia, as well as gastroenterology. Return if any worsening symptoms or concerns. Strict return precautions discussed CLINICAL IMPRESSION Diagnosis/Annotation: ED Dx Name:Abdominal pain Code:R10.9 Name:Anemia Code:D64.9 Dispostion: discharged Type: home ATTESTATION Attestation: Supervising physician on site, available for consultation, non-participatory in the evaluation of the care of this patient. CRITICAL CARE TIME Is this a critically ill patient: no Electronic Signatures: Link Gómez) (Signed 03-Mar-2019 04:00) Co-Signer: Provider Note - ED v2 Carmen Mina (PAC) (Signed 03-Mar-2019 02:15) Authored: Provider Note - ED v2 Last Updated: 03-Mar-2019 04:00 by Link Gómez) References: 1. Data Referenced From Triage - ED 02-Mar-2019 21:44 Normal [facility] UA MICROSCOPICon 03-03-2019 AMORPHOUS CRYSTAL 2+ /HPF Normal [facility] Comment on above: Performed By: #### U AMIC #### [facility] [address] [place] [address], [place] [address] MUCUS 1+ /LPF Normal [facility] Comment on above: Performed By: #### U AMIC #### [facility] [address] [place] [address], [place] [address] RBC (Bld) [#/Vol] none Abnormal 0-5 [facility] Comment on above: Performed By: #### U AMIC #### [facility] [address] [place] [address] SQUAMOUS EPITH. CELLS 4 /HPF Normal [facility] Comment on above: Performed By: #### U AMIC #### [facility] [address] [place] [address] WBC 2 /HPF Normal 0-5 [facility] Comment on above: Performed By: #### U AMIC #### [facility] [address] [place] [address] URINALYSISon 03-03-2019 Appearance (U) HAZY Normal CLEAR [facility] Comment on above: Performed By: #### U A #### [facility] [address] [place] [address] Bilirubin (U) [Mass/Vol] Negative Normal NEGATIVE [facility] Comment on above: Performed By: #### U A #### [facility] [address] [place] [address], [place] [address] BLOOD Negative Normal NEGATIVE [facility] Comment on above: Performed By: #### U A #### [address] [place] [address] Color (U) SATISH Normal STRAW,YELL OW [facility] Comment on above: Performed By: #### U A #### [address] [place] [address] Glucose [Mass/Vol] Negative Normal NEGATIVE [facility] Comment on above: Performed By: #### U A #### [address] [place] [address] Ketones Ql (U) Negative Normal NEGATIVE [facility] Comment on above: Performed By: #### U A #### [address] [place] [address] Leukocyte esterase Test strip Ql (U) TRACE Abnormal NEGATIVE [facility] Comment on above: Performed By: #### U A #### [address] [place] [address] Nitrite Ql (U) Negative Normal NEGATIVE [facility] Comment on above: Performed By: #### U A #### [address] [place] [address] pH (Bld) 6.0 Normal 5.0 - 8.0 [facility] Comment on above: Performed By: #### U A #### [address] [place] [address] Protein (U) [Mass/Vol] 30 (1+) Abnormal NEGATIVE [facility] Comment on above: Performed By: #### U A #### [address] [place] [address] Specific gravity (U) [Rel density] 1.024 Normal 1.005 - 1.035 [facility] Comment on above: Performed By: #### U A #### [address] [place] [address] Urobilinogen Qn (U) <2.0 Normal 0.0 - 1.9 [facility] Comment on above: Performed By: #### U A #### [address] [place] [address] URINE CULTURE,BACTERIALon URINE CULTURE,BACTERIAL PATIENT: VINNIE OLIVAREZ LOCATION: [facility]#: [id number] : 83 AGE: SEX: M ORDERED BY: CARMEN MINA SOURCE: URINE COLLECTED: 03/02/19 23:02 ANTIBIOTICS AT [facility].: RECEIVED : 03/03/19 10:08 SITE: Isaiah Miranda U Justin T S URINE CULTURE,BACTERIAL FINAL 03/06/19 18:24 ISOLATE1 : Aerococcus urinae >100,000 CFU/ML Organism Aero urinae Antibiotic JIMI INTRP Penicillin <.016 S Vancomycin 1.0 S Ciprofloxacin =0.25 S Levofloxacin 1 S Tetracycline 4.0 I Ampicillin S S=SUSCEPTIBLE I=INTERMEDIATE R=RESISTANT SDD=SUSCEPTIBLE DOSE DEPENDENT NS=NONSUSCEPTIBLE X=REPORTED IN ERROR Normal [facility] Comment on above: Performed By: #### U RINC #### [facility] [address] [place] [address] Risk Screen - Adult Emergenc yon 03-02-2019 Risk Screen - Adult Emergency Preferred Language: Preferred Language: Preferred Language for Discussing Health Care (patient/designee)Nicaraguan Advanced Directives: Advance Directive/DNRno Family Violence Adult: Abuse Screen: Are you or have you been threatened or abused physically, emotionally, or sexually by anyoneno Learning Assessment (Patient): Learning Assessment (Patient): Patient is Able to be Assessed for Learningyes Factors Influencing Readiness to Learnacuteness of illness Factors that Impact Ability to Learnnone Devices/Methods Used to Communicatenone Learning Preferencesverbal instruction Cultural Considerationsnone Developmental Considerationsnone Druze Considerationsnone Learning Assessment (Other Learner): Learning Assessment (Other Learner): Other learner availableno Pressure Injury/TB/Substance: Pressure Injury: Pressure Injury Present on Admissionno Do you have a coughno Substance Use Current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 reference range as of November. Performed By: #### C BC, PTINR, CMP12, MG, TROP, TSH, UR, BNP ####[address] [address] Estimated Creatinine Clearance 118 mL/min Normal 94-145 [facility] Comment on above: Performed By: #### C BC, PTINR, CMP12, MG, TROP, TSH, UR, BNP ####[address] [address] GFR () >60 Normal [facility] Comment on above: Performed By: #### C BC, PTINR, CMP12, MG, TROP, TSH, UR, BNP ####[address] [address] GFR (Non ) >60 Normal [facility] Comment on above: Result Comment: eGFR Units of measure: mL/min/1.73 m 2 Performed By: #### C BC, PTINR, CMP12, MG, TROP, TSH, UR, BNP ####[address] [address] Glucose mass conc 79 mg/dL Normal 74-99 [facility] Comment on above: Performed By: #### C BC, PTINR, CMP12, MG, TROP, TSH, UR, BNP ####[address] [address] Potassium molar conc 4.6 mmol/L Normal 3.5-5.3 [facility] Comment on above: Performed By: #### C BC, PTINR, CMP12, MG, TROP, TSH, UR, BNP ####[address] [address] Protein mass conc 6.4 g/dL Normal 6.4-8.2 [facility] Comment on above: Performed By: #### C BC, PTINR, CMP12, MG, TROP, TSH, UR, BNP ####[address] [address] Sodium molar conc 139 mmol/L Normal 136-145 [facility] Comment on above: Performed By: #### C BC, PTINR, CMP12, MG, TROP, TSH, UR, BNP ####[facility] [place] [address] Urea nitrogen mass conc (Bld) 11 mg/dL Normal 6-23 [facility] Comment on above: Result Comment: Kimberly tracy note new reference range as of November. Performed By: #### C BC, PTINR, CMP12, MG, TROP, TSH, UR, BNP ####[facility] [place] [address] Gastrointestinal Endoscopyon 12-24-2017 Gastrointestinal Endoscopy [facility] Dept: Diagnostic Att. Dr.: Jae Rivera MD Gastrointestinal Endoscopy Loc: 9W 926-2 Report #: [id number] Adm Dt: 12/22/17 Dis Dt: Patient Name: Vinnie Olivarez Procedure Date: 12/24/2017 12:14 PM Date of : 1985 Admit Type: Inpatient Ethnicity: Race: Unknown Attending MD: Leanne Zapien MD Procedure: Upper GI endoscopy Indications: Iron deficiency anemia on anticoagulation for suspected pulmonary emboli history of gastric ulcers Comorbidities: Suspected pulmonary emboli Providers: Leanne Zapien MD (Doctor) , Nicolasa Beckwith RN (Nurse) , Chyna Mercado, Personal Property Assessor Referring: Medicines: Monitored Anesthesia Care Complications: No immediate complications. Procedure: Pre-Anesthesia Assessment: - Prior to the procedure, a History and Physical was performed, and patient medications and allergies were reviewed. The patient's tolerance of previous anesthesia was also reviewed. The risks and benefits of the procedure and the sedation options and risks were discussed with the patient. All questions were answered, and informed consent was obtained. Prior Anticoagulants: The patient has taken Eliquis (apixaban), last dose was day of procedure. ASA Grade Assessment: III - A patient with severe systemic disease. After reviewing the risks and benefits, the patient was deemed in satisfactory condition to undergo the procedure. After obtaining informed consent, the endoscope was passed under direct vision. Throughout the procedure, the patient's blood pressure, pulse, and oxygen saturations were monitored continuously. The endoscope was introduced through the mouth, and advanced to the second part of duodenum. The upper GI endoscopy was accomplished without difficulty. The patient tolerated the procedure well. Findings: A large hiatal hernia was present. This measured 4 cm in size. There was no evidence of any esophageal ulcerations or Aguilar's esophagus no biopsies were done The entire examined stomach was normal. Retroflexed view of the cardia confirm the presence of a large hiatal hernia no vascular malformations were noted no gastritis or ulcerations Patchy moderately erythematous mucosa without active bleeding and with no stigmata of bleeding was found in the duodenal bulb. Second portion of the duodenum was normal Impression: - Large hiatal hernia. - Normal stomach. - Erythematous duodenopathy. Duodenitis - No specimens collected. Recommendation: - Return patient to [facility] for ongoing care. - Resume previous diet. - Continue present medications. I thing is safe to continue him on anticoagulation if clinically necessary long-term with the PPI prophylaxis and perhaps long-term iron supplementation by mouth Procedure Code(s): --- Professional --- 27559, Esophagogastroduodenoscopy, flexible, transoral; diagnostic, including collection of specimen(s) by brushing or washing, when performed (separate procedure) Diagnosis Code(s): --- Professional --- K44.9, Diaphragmatic hernia without obstruction or gangrene K31.89, Other diseases of stomach and duodenum D50.9, Iron deficiency anemia, unspecified CPT copyright 2016 [employer]. All rights reserved. The codes documented in this report are preliminary and upon die cast supervisor review may be revised to meet current compliance requirements. Leanne Zapien MD 12/24/2017 12:51:14 PM This report has been signed electronically. Number of Addenda: 0 Note Initiated On: 12/24/2017 12:14 PM Total Procedure Duration Time 0 hours 0 minutes 29 seconds 1251 Normal [facility] Post Procedure Progress Note on 12-24-2017 Post Procedure Progress Note [facility] Patient: VINNIE OLIVAREZ [address] [facility] MR#: [id number] [place], [place] [address] : 1985 OrdYana Auguste: Dept: PDOC Loc: 6-2 Post Procedure Progress Note Service Dt: 12/24/17 Report#: [id number] Adm Dt: 12/22/17 Dis Dt: Endo Immediate Post-Procedure - Progress Note Indications: Iron deficiency anemia patient is on anticoagulation because of the recurrent venous thrombosis Procedure Description: EGD Type of Anesthesia: MAC Post-Op Dx (findings): 4 cm hiatal hernia and duodenitis no active ulcerations EBL: None Condition of Patient: Stable Normal [facility] Progress Noteson 12-24-2017 Protein mass conc [facility] Patient: VINNIE OLIVAREZ [address] [facility] MR#: [id number] [place], [place] [address] : 1985 Ord. : Dept: PDOC Loc: 6-2 Physician Progress Note Service Dt: 12/24/17 Report#: [id number] Adm Dt: 12/22/17 Dis Dt: Note - Patient Note Observation: 12/24/17 12:34 4 cm hiatal hernia I think it'll be safe to give him anticoagulation long-term iron therapy long-term PPI therapy could be discharged GI point of view Normal [facility] Anti-Nuclear Antibodyon 12-13 JOSEY, Screen Negative Normal NEGATIVE [facility] Comment on above: Result Comment: Perf orming Site: [facility] - [address] [place], [id number] Performed By: #### C BC, PTINR, CMP12, MG, TROP, TSH, UR, BNP ####[facility] [place] [address] Complete Blood Count w/diff $$on 12-23-2017 Basophils Auto #/vol (Bld) 0.0 10 /uL Low 0.04-0.9 [facility] Comment on above: Performed By: #### C BC, PTINR, CMP12, MG, TROP, TSH, UR, BNP ####[facility] [place] [address] Basophils/100 WBC Auto (Bld) 1 % Normal 0-1 [facility] Comment on above: Performed By: #### C BC, PTINR, CMP12, MG, TROP, TSH, UR, BNP ####[address] [address] Eosinophils Auto #/vol (Bld) 0.1 10 3/uL Normal 0.03-0.6 [facility] Comment on above: Performed By: #### C BC, PTINR, CMP12, MG, TROP, TSH, UR, BNP ####[address] [address] Eosinophils/100 WBC Auto (Bld) 1 % Normal 0-3 [facility] Comment on above: Performed By: #### C BC, PTINR, CMP12, MG, TROP, TSH, UR, BNP ####[address] [address] Erythrocyte distribution width Auto Ratio (RBC) 17.1 % High 11.5-14.5 [facility] Comment on above: Performed By: #### C BC, PTINR, CMP12, MG, TROP, TSH, UR, BNP ####[address] [address] Hematocrit Auto Volume Fraction (Bld) 35.2 % Low 39-50 [facility] Comment on above: Performed By: #### C BC, PTINR, CMP12, MG, TROP, TSH, UR, BNP ####[address] [address] Hemoglobin mass conc (Bld) 9.9 g/dL Low 13.0-17.3 [facility] Comment on above: Performed By: #### C BC, PTINR, CMP12, MG, TROP, TSH, UR, BNP ####[address] [address] Immature Gran# (Auto) 0.0 10 3/uL Normal [facility] Comment on above: Performed By: #### C BC, PTINR, CMP12, MG, TROP, TSH, UR, BNP ####[address] [address] Immature granulocytes #/vol (Bld) 0.2 % Normal 0.0-1.2 [facility] Comment on above: Performed By: #### C BC, PTINR, CMP12, MG, TROP, TSH, UR, BNP ####[address] [address] Lymphocytes Auto #/vol (Bld) 1.3 10 3/uL Normal 1-3.5 [facility] Comment on above: Performed By: #### C BC, PTINR, CMP12, MG, TROP, TSH, UR, BNP ####[address] [address] Lymphocytes/100 WBC Auto (Bld) 26 % Normal 24-44 [facility] Comment on above: Performed By: #### C BC, PTINR, CMP12, MG, TROP, TSH, UR, BNP ####[address] [address] MCH Auto Entitic mass (RBC) 28.1 g/dL Low 33-37 [facility] Comment on above: Performed By: #### C BC, PTINR, CMP12, MG, TROP, TSH, UR, BNP ####[address] [address] MCH Auto Entitic mass (RBC) 21.2 pg Low 27-34 [facility] Comment on above: Performed By: #### C BC, PTINR, CMP12, MG, TROP, TSH, UR, BNP ####[address] [address] MCV Auto Entitic volume (RBC) 75.4 fL Low 80-100 [facility] Comment on above: Performed By: #### C BC, PTINR, CMP12, MG, TROP, TSH, UR, BNP ####[address] [address] Monocytes Auto #/vol (Bld) 0.4 10 3/uL Normal 0.04-0.9 [facility] Comment on above: Performed By: #### C BC, PTINR, CMP12, MG, TROP, TSH, UR, BNP ####[address] [address] Monocytes/100 WBC Auto (Bld) 9 % High 1-8 [facility] Comment on above: Performed By: #### C BC, PTINR, CMP12, MG, TROP, TSH, UR, BNP ####[address] [address] Neutrophils Auto #/vol (Bld) 3.1 10 3/uL Normal 1.8-7.0 [facility] Comment on above: Performed By: #### C BC, PTINR, CMP12, MG, TROP, TSH, UR, BNP ####[address] [address] Neutrophils/100 WBC Auto (Bld) 63 % Normal 42-76 [facility] Comment on above: Performed By: #### C BC, PTINR, CMP12, MG, TROP, TSH, UR, BNP ####[address] [address] Nucleated RBC/100 WBC Ratio (Bld) 0.0 % Normal 0.0-0.2 [facility] Comment on above: Performed By: #### C BC, PTINR, CMP12, MG, TROP, TSH, UR, BNP ####[address] [address] Platelet mean volume Auto Entitic volume (Bld) 10.6 fL High 7.4-10.4 [facility] Comment on above: Performed By: #### C BC, PTINR, CMP12, MG, TROP, TSH, UR, BNP ####[address] [address] Platelets Auto #/vol (Bld) 227 10 3/uL Normal 150-400 [facility] Comment on above: Performed By: #### C BC, PTINR, CMP12, MG, TROP, TSH, UR, BNP ####[address] [address] RBC Auto #/vol (Bld) 4.67 10 6/uL Normal 4.5-6.0 [facility] Comment on above: Performed By: #### C BC, PTINR, CMP12, MG, TROP, TSH, UR, BNP ####[address] [address] WBC Auto #/vol (Bld) 5.0 10 3/uL Normal 4.0-11.0 [facility] Comment on above: Performed By: #### C BC, PTINR, CMP12, MG, TROP, TSH, UR, BNP ####[address] [address] Comprehensive Metabolic Pane erin 12-23-2017 Albumin mass conc 3.7 g/dL Normal 3.4-5.0 [facility] Comment on above: Performed By: #### C BC, PTINR, CMP12, MG, TROP, TSH, UR, BNP ####[address] [address] ALP enzyme act/vol 75 U/L Normal 33-120 [facility] Comment on above: Result Comment: Kimberly tracy note new reference range as of November. Performed By: #### C BC, PTINR, CMP12, MG, TROP, TSH, UR, BNP ####[facility] [place] [address] ALT enzyme act/vol 26 U/L Normal 4-52 [facility] Comment on above: Result Comment: Plea se note new reference range as of November. Performed By: #### C BC, PTINR, CMP12, MG, TROP, TSH, UR, BNP ####[address] [address] Anion gap 3 molar conc 8.4 mmol/L Low 10-20 [facility] Comment on above: Performed By: #### C BC, PTINR, CMP12, MG, TROP, TSH, UR, BNP ####[address] [address] AST enzyme act/vol 19 U/L Normal 9-39 [facility] Comment on above: Result Comment: Plea se note new reference range as of November. Performed By: #### C BC, PTINR, CMP12, MG, TROP, TSH, UR, BNP ####[address] [address] Bilirubin Ql (U) 0.3 mg/dL Normal 0.0-1.2 [facility] Comment on above: Performed By: #### C BC, PTINR, CMP12, MG, TROP, TSH, UR, BNP ####[address] [address] Calcium mass conc 8.8 mg/dL Normal 8.6-10.3 [facility] Comment on above: Result Comment: Plea se note new reference range as of November. Performed By: #### C BC, PTINR, CMP12, MG, TROP, TSH, UR, BNP ####[address] [address] Chloride molar conc 109 mmol/L High 98-107 [facility] Comment on above: Performed By: #### C BC, PTINR, CMP12, MG, TROP, TSH, UR, BNP ####[address] [address] CO2 molar conc 25 mmol/L Normal 21-32 [facility] Comment on above: Performed By: #### C BC, PTINR, CMP12, MG, TROP, TSH, UR, BNP ####[address] [address] Creatinine mass conc 0.88 mg/dL Normal 0.50-1.30 [facility] Comment on above: Result Comment: Pledali tracy note new reference range as of November. Performed By: #### C BC, PTINR, CMP12, MG, TROP, TSH, UR, BNP ####[address] [address] Estimated Creatinine Clearance 127 mL/min Normal 94-145 [facility] Comment on above: Performed By: #### C BC, PTINR, CMP12, MG, TROP, TSH, UR, BNP ####[address] [address] GFR () >60 Normal [facility] Comment on above: Performed By: #### C BC, PTINR, CMP12, MG, TROP, TSH, UR, BNP ####[address] [address] GFR (Non ) >60 Normal [facility] Comment on above: Result Comment: eGFR Units of measure: mL/min/1.73 m 2 Performed By: #### C BC, PTINR, CMP12, MG, TROP, TSH, UR, BNP ####[address] [address] Glucose mass conc 81 mg/dL Normal 74-99 [facility] Comment on above: Performed By: #### C BC, PTINR, CMP12, MG, TROP, TSH, UR, BNP ####[facility] [place] [address] Potassium molar conc 4.4 mmol/L Normal 3.5-5.3 [facility] Comment on above: Performed By: #### C BC, PTINR, CMP12, MG, TROP, TSH, UR, BNP ####[address] [address] Protein mass conc 6.1 g/dL Low 6.4-8.2 [facility] Comment on above: Performed By: #### C BC, PTINR, CMP12, MG, TROP, TSH, UR, BNP ####[address] [address] Sodium molar conc 138 mmol/L Normal 136-145 [facility] Comment on above: Performed By: #### C BC, PTINR, CMP12, MG, TROP, TSH, UR, BNP ####[address] [address] Urea nitrogen mass conc (Bld) 15 mg/dL Normal 6-23 [facility] Comment on above: Result Comment: Kimberly tracy note new reference range as of November. Performed By: #### C BC, PTINR, CMP12, MG, TROP, TSH, UR, BNP ####[address] [address] Consultation Reporton 2017 Consultation Report [facility] Patient: VINNIE OLIVAREZ [address] [facility] MR#: [id number] [place], [place] [address] : 1985 OrdYana Auguste: Dept: PDOC Loc: 9W 926-2 Consultation Service Dt: 12/23/17 Report#: [id number] Adm Dt: 12/22/17 Dis Dt: Initial Physician Consultation - Consulting Specialty Consulting Specialty: GI - PCP/Chief Complaint Primary Care Physician: No Primary Physician Chief Complaint: chest pain - History of Present Illness HPI: This 52-year-old man was admitted to the hospital because of shortness of breath and chest pain he was thought to have findings suspicious of small peripheral pulmonary emboli on the right lung although the DVT studies of the lower extremities are unremarkable he did not have any major surgery or immobilization lately he tells me that he has had DVTs and pulmonary emboli in the past. In 2015 he was found to have gastric ulcers and hiatal hernia and a colonoscopy that was negative this was done because of iron deficiency anemia he is currently has hypochromic microcytic anemia highly suggestive iron deficiency consultation is requested he has not any recent history of any black or tarry stools but he is known to have a large hiatal hernia she is specifically describes her sliding type although her current CT showed several paraesophageal hernia which has become larger in size Patient history family history is negative for chronic coagulation disorders his father had a quadruple bypass surgery 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 No prior history of documented coronary artery disease or diabetes or hyperlipidemia. He has no urinary symptoms otherwise 10 review system is negative currently is asymptomatic has no shortness of breath or chest pain otherwise 10 review system negative - Past Medical History Cardiac: DVT Other Cardiac Hx: DVT to left calf Respiratory: Sleep Apnea GI: GERD , Male: Vasectomy Musculoskeletal: Degenerative Disc Disease - Social History Smoking Status: Current every day smoker Cigarettes per Day: 20 Does Patient Dip or Chew Tobacco: No Alcohol Use: No Use of Substances/Recreational Drugs: No Type: Marijuana Use Comment: used last night due to the pain - Family Health History Father Family Member Hx: Heart Disease, Diabetes Mother Family Member Hx: Heart Disease, Diabetes - Allergies Allergies/Adverse Reactions: Allergies cinnamon Allergy (Verified 12/21/17 19:56) Anaphylaxis - Medications Home Medications: Fluoxetine HCl [Prozac] 40 mg PO QHS 06/14/15 [History Last Taken 06/14/15] Oxcarbazepine [Trileptal] 600 mg PO BID 06/14/15 [History Last Taken 06/14/15] Quetiapine Fumarate [Seroquel Xr] 400 mg PO QHS 06/14/15 [History Last Taken 06/14/15] diphenhydrAMINE HCL [Benadryl] 50 mg PO QHS PRN 06/14/15 [History Last Taken 06/14/15] Gabapentin [Neurontin] 100 mg PO VARIABLE PRN 12/21/17 [History Last Taken Unknown] Apixaban [Eliquis] 10 mg PO Q12 6 Days #12 tab 12/23/17 [Rx Last Taken Unknown] Apixaban [Eliquis] 5 mg PO BID #60 tablet 12/30/17 [Rx Last Taken Unknown] Current Medications: Current Medications Acetaminophen (Tylenol) 650 mg PO Q4 PRN PRN Reason: Pain (mild)/Temp above 38.3 C Hydrocodone Bitart/Acetaminophen ([place] 5/325 Mg) 1 tab PO Q6 PRN PRN Reason: Pain-moderate (4-12/22) Last Admin: 12/23/17 09:51 Dose: 1 tab Apixaban (Eliquis) 10 mg PO Q12 [facility] Last Admin: 12/23/17 09:50 Dose: 10 mg Dextrose (Dextrose Syringe) 25 ml IV Q15M PRN PRN Reason: Hypoglycemia Dextrose (Dextrose Syringe) 50 ml IV Q15M PRN PRN Reason: Hypoglycemia Dextrose (Instant Glucose) 37.5 g PO Q15M PRN PRN Reason: Hypoglycemia Diphenhydramine HCl (Benadryl) 50 mg PO QHS PRN PRN Reason: Sleep Fluoxetine HCl (Prozac) 40 mg PO QHS [facility] Last Admin: 12/22/17 21:24 Dose: 40 mg Glucagon (Glucagon) 1 mg IM Q15M PRN PRN Reason: Hypoglycemia Iron Sucrose 300 mg/ Sodium (Chloride) 115 mls @ 66.66 mls/hr IVPB DAILY [facility] Stop: 12/24/17 11:44 Last Infusion: 12/23/17 11:34 Dose: Infused Nicotine (Habitrol Patch(Pbkc) 14 Mg) 14 mg TD DAILY@1999 [facility] Last Admin: 12/22/17 20:04 Dose: 14 mg Ondansetron HCl (Zofran) 4 mg IV Q6 PRN PRN Reason: Nausea Oxcarbazepine (Trileptal) 600 mg PO Q12 [facility] Last Admin: 12/23/17 09:48 Dose: 600 mg Pantoprazole Sodium (Protonix) 40 mg PO Q12 [facility] Last Admin: 12/23/17 09:48 Dose: 40 mg Quetiapine Fumarate (Seroquel) 200 mg PO Q12 [facility] Last Admin: 12/23/17 09:48 Dose: 200 mg - Diagnostic Studies Lab Data: Labs (last 24 hrs) 12/23/17 12/22/17 06:10 13:35 WBC 5.0 RBC 4.67 Hgb 9.9 L Hct 35.2 L MCV 75.4 L MCH 21.2 L MCHC 28.1 L RDW 17.1 H Plt Count 227 MPV 10.6 H Immature Gran % (Auto) 0.2 Neut % (Auto) 63 Lymph % (Auto) 26 [place] % (Auto) 9 H Eos % (Auto) 1 Baso % (Auto) 1 Nucleat RBC Rel Count 0.0 Immature Gran # (Auto) 0.0 Neut # (Auto) 3.1 Lymph # (Auto) 1.3 [place] # (Auto) 0.4 Eos # (Auto) 0.1 Baso # (Auto) 0.0 L Sodium 138 Potassium 4.4 Chloride 109 H Carbon Dioxide 25 Anion Gap 8.4 L BUN 15 Creatinine 0.88 Estim Creat Clear Calc 127 Est GFR ( Amer) >60 Est GFR (Non-Af Amer) >60 Fasting Glucose 81 Calcium 8.8 Ferritin 9 L Total Bilirubin 0.3 AST 19 ALT 26 Alkaline Phosphatase 75 Total Protein 6.1 L Albumin 3.7 - Subjective Narrative ROS: Review of Systems completed. - Review of Systems Constitutional: Reports: weakness Eyes: Reports: no symptoms ENT: Reports: no symptoms Respiratory: Reports: SOB with exertion Cardiovascular: Reports: dyspnea on exertion Gastrointestinal: Reports: no symptoms Genitourinary Exam M/F: Reports: no symptoms Musculoskeletal: Reports: no symptoms Integumentary: Reports: no symptoms Neurological: Reports: no symptoms Psychiatric: Reports: anxiety Endocrine: Reports: other (Chronic exogenous obesity) Hematological/Lymphatic: Reports: other (History of iron deficiency anemia) - I O/Vital Signs I O/VS: Intake/Output/Wt 12/20/17 12/21/17 12/22/17 12/23/17 23:59 23:59 23:59 23:59 Intake Total 1690 715 Balance 1690 715 Weight 121.3 kg Intake: Intake 1115 115 Venofer 300 mg In Sodium 115 115 Chloride 0.9% 100 ML @ 66 .66 mls/hr IVPB DAILY [facility] Rx#:[id number] Oral 575 600 Other: Height 1.8 m Vital Signs (last 24 hrs) Temp Pulse Resp BP Pulse Ox 12/23/17 14:00 37.1 C 61 18 106/58 L 99 12/23/17 10:00 36.5 C 58 L 18 117/76 99 12/23/17 06:00 36.0 C L 55 L 18 100/63 98 12/23/17 02:00 36.2 C L 52 L 18 103/65 98 12/22/17 21:57 36.3 C L 64 16 118/72 98 12/22/17 17:16 36.6 C 52 L 14 114/75 99 Oxygen: Oxygen O2 Sat by Pulse Oximetry 99 Oxygen Delivery Method Room Air - Physical Exam Constitutional: Positive: alert, obese HEENT: Positive: head normal inspection Neck: Positive: Supple, +2 carotid pulse wo bruit, no JVD, no thyromegaly Adenopathy: Positive: No Regional Adenopathy Respiratory: Positive: normal lung sounds bilaterally, rales, rhonchi, tachypnea, wheezes Cardiovascular: Positive: regular rate, normal rhythm, normal heart sounds GI/Abdominal: Positive: soft, nontender, nondistended, no organomegaly palpable, normal bowel sounds : Positive: deferred Extremities: Positive: normal inspection, full ROM, normal capillary refill, no edema, no cellulitis, bilateral pulses positive, negative dat's sign bilaterally Neurological: Positive: alert, oriented X3, CN II-XII intact Integumentary: Positive: no pallor or jaundice Psychiatric: Positive: anxious - Assessment and Plan (1) Anemia Status: Chronic Qualifiers: Anemia type: iron deficiency (2) Paraesophageal hernia Status: Chronic (3) Iron deficiency anemia due to chronic blood loss Status: Acute (4) History of DVT of lower extremity Status: Chronic - Comments Impression Comments: 12/23/17 17:03 This man most likely has hypochromic microcytic anemia from a large paraesophageal hernia which is apparent on the patient's CAT scan in 2014 the patient had a negative colonoscopy but upper endoscopy by Dr. kanchan greenberg had shown 3 small gastric ulcer he never followed up for further evaluation. He needs an upper GI endoscopic examination as a minimum to evaluate his iron deficiency anemia as particularly given the fact that he may need to be on long-term anticoagulation. Hypercoagulable states has also be ruled out and studies are pending at this time. He may have factor V guten deficiency syndrome he also has strong family history of coronary artery disease and he has multiple risk factors including cigarette smoking and exogenous obesity I recommended that he should have an upper GI endoscopy and he is very knowledgeable about the procedure he will be is being scheduled for this tomorrow under Mac anesthesia. Normal [facility] General Medical Progress Not lisa 12-23-2017 Protein mass conc [facility] Patient: VINNIE OLIVAREZ [address] MR#: [id number] [place], [place] [address] : 1985 OrdYana Auguste: Dept: PDOC Loc: 9W 926-2 General Medical Progress Note Service Dt: 12/23/17 Report#: [id number] Adm Dt: 12/21/17 Dis Dt: 12/24/17 General-Medical Progress Note - Patient Visit Reason Visit Reason: PULMONARY EMBOLUS - Chief Complaint Chief Complaint: chest pain - Subjective Narrative HPI/ROS: Patient seen and examined at bedside. He was started on Eliquis last night and Lovenox has been discontinued. he had an uneventful night. Denied any shortness of breath. EGD to be done in AM. - Review of Systems Constitutional: Reports: no symptoms Eyes: Reports: no symptoms ENT: Reports: no symptoms Respiratory: Reports: no symptoms reported Cardiovascular: Reports: no symptoms Gastrointestinal: Reports: no symptoms Genitourinary: Reports: no symptoms Musculoskeletal: Reports: no symptoms Integumentary: Reports: no symptoms Neurological: Reports: no symptoms Psychiatric: Reports: no symptoms Endocrine: Reports: no symptoms reported Hematological/Lymphatic: Reports: no symptoms Allergic/Immunologic: Reports: no symptoms - I O/Vital Signs I O/VS: Vital Signs Temp 36.3 C L 12/24/17 14:00 Pulse 57 L 12/24/17 14:00 Resp 18 12/24/17 14:00 BP 124/77 12/24/17 14:00 Pulse Ox 99 12/24/17 14:00 Vital Signs Temp 37.1 C 12/23/17 14:00 Pulse 61 12/23/17 14:00 Resp 18 12/23/17 14:00 BP 106/58 L 12/23/17 14:00 Pulse Ox 99 12/23/17 14:00 Intake Output 12/22/17 12/23/17 12/23/17 23:59 11:59 23:59 Intake Total 1590 415 300 Balance 1590 415 300 Intake: Intake 1115 115 Venofer 300 mg In Sodium 115 115 Chloride 0.9% 100 ML @ 66 .66 mls/hr IVPB DAILY [facility] Rx#:[id number] Oral 475 300 300 - Objective Narrative Patient Exam: Constitutional: Positive: alert, in no apparent distress, obese HEENT: Positive: EOMI Neck: Positive: Supple, no JVD Respiratory: Negative: rhonchi, tachypnea, wheezes, stridor, accessory muscle use Cardiovascular: Positive: regular rate, normal rhythm, +S1, +S2. Negative: rubs, gallop, clicks, +S3, +S4 GI/Abdominal: Positive: soft, nontender, nondistended, normal bowel sounds. Negative: guarding, rebound, rigidity : Positive: deferred Extremities: Positive: no edema, no cellulitis, bilateral pulses positive. Negative: calf tenderness Neurological: Positive: alert, oriented X3 Integumentary: Positive: warm, dry, intact, other Psychiatric: Positive: normal affect, normal mood - Lab Diagnostic Data Diagrams: 12/24/17 06:55 12/24/17 06:55 Chemistry: Chemistry (Last 24hrs) 12/23/17 12/22/17 06:10 13:35 Sodium 138 Potassium 4.4 Chloride 109 H Carbon Dioxide 25 Anion Gap 8.4 L BUN 15 Creatinine 0.88 Estim Creat Clear Calc 127 Est GFR ( Amer) >60 Est GFR (Non-Af Amer) >60 Fasting Glucose 81 Calcium 8.8 Ferritin 9 L Total Bilirubin 0.3 AST 19 ALT 26 Alkaline Phosphatase 75 Total Protein 6.1 L Albumin 3.7 - Medications Meds: Current Medications Acetaminophen (Tylenol) 650 mg PO Q4 PRN PRN Reason: Pain (mild)/Temp above 38.3 C Hydrocodone Bitart/Acetaminophen ([place] 5/325 Mg) 1 tab PO Q6 PRN PRN Reason: Pain-moderate (4-6/10) Last Admin: 12/23/17 09:51 Dose: 1 tab Apixaban (Eliquis) 10 mg PO Q12 [facility] Last Admin: 12/23/17 09:50 Dose: 10 mg Dextrose (Dextrose Syringe) 25 ml IV Q15M PRN PRN Reason: Hypoglycemia Dextrose (Dextrose Syringe) 50 ml IV Q15M PRN PRN Reason: Hypoglycemia Dextrose (Instant Glucose) 37.5 g PO Q15M PRN PRN Reason: Hypoglycemia Diphenhydramine HCl (Benadryl) 50 mg PO QHS PRN PRN Reason: Sleep Fluoxetine HCl (Prozac) 40 mg PO QHS [facility] Last Admin: 12/22/17 21:24 Dose: 40 mg Glucagon (Glucagon) 1 mg IM Q15M PRN PRN Reason: Hypoglycemia Iron Sucrose 300 mg/ Sodium (Chloride) 115 mls @ 66.66 mls/hr IVPB DAILY [facility] Stop: 12/24/17 11:44 Last Infusion: 12/23/17 11:34 Dose: Infused Nicotine (Habitrol Patch(Pbkc) 14 Mg) 14 mg TD DAILY@1999 [facility] Last Admin: 12/22/17 20:04 Dose: 14 mg Ondansetron HCl (Zofran) 4 mg IV Q6 PRN PRN Reason: Nausea Oxcarbazepine (Trileptal) 600 mg PO Q12 [facility] Last Admin: 12/23/17 09:48 Dose: 600 mg Pantoprazole Sodium (Protonix) 40 mg PO Q12 [facility] Last Admin: 12/23/17 09:48 Dose: 40 mg Quetiapine Fumarate (Seroquel) 200 mg PO Q12 [facility] Last Admin: 12/23/17 09:48 Dose: 200 mg Allergies/Adv: Allergies Allergy/AdvReac Type Severity Reaction Status Date / Time cinnamon Allergy Anaphylaxis Verified 12/21/17 19:56 - Assessment/Plan (1) Abnormal computed tomography angiography (CTA) Status: Acute (2) Pulmonary embolus Status: Suspected QualifierTitle: Pulmonary embolism type: other (3) Atypical chest pain Status: Acute (4) Anemia Status: Chronic (5) Bipolar disease, chronic Status: Chronic (6) History of DVT of lower extremity Status: Chronic (7) Sleep apnea Status: Chronic QualifierTitle: Sleep apnea type: obstructive Qualified Code(s): G47.33 - Obstructive sleep apnea (adult) (pediatric) (8) DVT prophylaxis Status: Acute - Comments Impression: 12/22/17 15:39 This is a 32 y/o male with a PMH significant for 2x LLE DVT, TIFFANIE on CPAP, and bipolar disorder who presents to [facility] ED from home with 1-week of substernal chest pain. # Abnormal computed tomography angiography (CTA) # Pulmonary embolus # Atypical chest pain # Anemia # Bipolar disease, chronic # History of DVT of lower extremity # Sleep apnea # DVT prophylaxis plan: -- Patient has had two prior episodes of DVT in the past and would need to be on anticoagulation. He has been on coumadin in the past after suffering a DVT, however, the duration and the reasoning for discontinuation is unclear His CTA was only suggestive of PE therefore we'll consult pulm to assess whether he would need a prophylactic dose only vs treatment dose. -- C/W lovenox 1mg/kg BID. -- Will order a hypercoagulation panel -- patient has had a hx of Fe deficiency anemia in the past. His CBC was significant for microcytic hypochromic anemia. Will get an anemia panel to assess whether he would need iron supplements -- CPAP qhs, use home settings. -- echo and duplex u/s of RLE pending -- On therapeutic lovenox. 12/23/17 16:20 -- anemia panel was significant for iron deficiency anemia. Patient was subsequently started on IV iron -- GI consult appreciated, NPO after midnight. Plan EGD in AM -- will continue with eliquis 10 mg BID for total of 7 days and then 5mg BID -- possible discharge in AM depending on EGD result. -- venous doppler of RLE negative for DVT -- Echo pending Progress Note Co-Signature - Attestation Attestation: Saw Patient Agree Additionally: I have seen and evaluated this patient, I personally obtained the antonio critical portions of the Progress Note, I was present for antonio critical portions performed by the resident, I reviewed resident's documentation discussed Pt with resident, I agree with resident's medical decision making as documented in note Patient evaluation date: 12/23/17 Normal [facility] Pulmonary Progress Noteon Protein mass conc [facility] Patient: VINNIE OLIVAREZ Justin [address] [facility] MR#: [id number] [place], [place] [address] : 1985 Ord. : Dept: PDOC Loc: 9W 926-2 Pulmonology Progress Note Service Dt: 12/23/17 Report#: [id number] Adm Dt: 12/22/17 Dis Dt: Pulmonary Progress Note - Chief Complaint Chief Complaint: chest pain - Subjective Narrative HPI/ROS: , No fever no chills no nausea no vomiting no hemoptysis - Review of Systems All systems: 10 point review of systems negative except for what is stated in HPI - I O/Vital Signs I O/VS: Intake/Output/Wt 12/20/17 12/21/17 12/22/17 12/23/17 23:59 23:59 23:59 23:59 Intake Total 1690 715 Balance 1690 715 Weight 121.3 kg Intake: Intake 1115 115 Venofer 300 mg In Sodium 115 115 Chloride 0.9% 100 ML @ 66 .66 mls/hr IVPB DAILY [facility] Rx#:[id number] Oral 575 600 Other: Height 1.8 m Vital Signs (last 24 hrs) Temp Pulse Resp BP Pulse Ox 12/23/17 14:00 37.1 C 61 18 106/58 L 99 12/23/17 10:00 36.5 C 58 L 18 117/76 99 12/23/17 06:00 36.0 C L 55 L 18 100/63 98 12/23/17 02:00 36.2 C L 52 L 18 103/65 98 12/22/17 21:57 36.3 C L 64 16 118/72 98 - Ventilator Settings Ventilator Settings: Ventilator Settings Sputum Amount None - Lab Diagnostic Data Diagrams: 12/23/17 06:10 12/23/17 06:10 Labs: Chemistry (last 24 hrs) 12/23/17 06:10 Sodium 138 Potassium 4.4 Chloride 109 H Carbon Dioxide 25 Anion Gap 8.4 L BUN 15 Creatinine 0.88 Estim Creat Clear Calc 127 Est GFR ( Amer) >60 Est GFR (Non-Af Amer) >60 Fasting Glucose 81 Calcium 8.8 Total Bilirubin 0.3 AST 19 ALT 26 Alkaline Phosphatase 75 Total Protein 6.1 L Albumin 3.7 - Medications Meds: Current Medications Acetaminophen (Tylenol) 650 mg PO Q4 PRN PRN Reason: Pain (mild)/Temp above 38.3 C Hydrocodone Bitart/Acetaminophen ([place] 5/325 Mg) 1 tab PO Q6 PRN PRN Reason: Pain-moderate (4-6/10) Last Admin: 12/23/17 09:51 Dose: 1 tab Apixaban (Eliquis) 10 mg PO Q12 [facility] Last Admin: 12/23/17 09:50 Dose: 10 mg Dextrose (Dextrose Syringe) 25 ml IV Q15M PRN PRN Reason: Hypoglycemia Dextrose (Dextrose Syringe) 50 ml IV Q15M PRN PRN Reason: Hypoglycemia Dextrose (Instant Glucose) 37.5 g PO Q15M PRN PRN Reason: Hypoglycemia Diphenhydramine HCl (Benadryl) 50 mg PO QHS PRN PRN Reason: Sleep Fluoxetine HCl (Prozac) 40 mg PO QHS [facility] Last Admin: 12/22/17 21:24 Dose: 40 mg Glucagon (Glucagon) 1 mg IM Q15M PRN PRN Reason: Hypoglycemia Iron Sucrose 300 mg/ Sodium (Chloride) 115 mls @ 66.66 mls/hr IVPB DAILY [facility] Stop: 12/24/17 11:44 Last Infusion: 12/23/17 11:34 Dose: Infused Nicotine (Habitrol Patch(Pbkc) 14 Mg) 14 mg TD DAILY@1999 [facility] Last Admin: 12/22/17 20:04 Dose: 14 mg Ondansetron HCl (Zofran) 4 mg IV Q6 PRN PRN Reason: Nausea Oxcarbazepine (Trileptal) 600 mg PO Q12 [facility] Last Admin: 12/23/17 09:48 Dose: 600 mg Pantoprazole Sodium (Protonix) 40 mg PO Q12 [facility] Last Admin: 12/23/17 09:48 Dose: 40 mg Quetiapine Fumarate (Seroquel) 200 mg PO Q12 [facility] Last Admin: 12/23/17 09:48 Dose: 200 mg Allergies/Adv: Allergies Allergy/AdvReac Type Severity Reaction Status Date / Time cinnamon Allergy Anaphylaxis Verified 12/21/17 19:56 - Assessment/Plan (1) Recurrent pulmonary emboli Status: Acute (2) Hypercoagulable state Status: Acute (3) Obesity Status: Acute (4) Lung nodules Status: Acute (5) Smoker Status: Acute - Comments Impression Comments: 12/23/17 18:[address] was reviewed personally and shows probable small segmental pulmonary emboli, there is a right upper lobe nodule which has inflammatory features, possibly associated with aspiration associated with large hiatal hernia, due to his history of recurrent DVTs and PEs she will need lifelong anticoagulation whether his hypercoagulable state is confirmed by biochemical markers are not, strongly recommend discontinuation of smoking, may require outpatient sleep study, follow-up CT scan in 3-4 months. Normal [facility] Venous Duplex Lower - Righto n 12-23-2017 Venous Duplex Lower - Right [facility], [address] [place] [address] and Vascular Lab Report Lower Venous Duplex Ultrasound Patient Name: VINNIE OLIVAREZ Study Date: 12/23/2017 Reading Physician: NIKKI Post D.O. MRN/PID: [id number] Referring Physician: JUJU Hernandez Accession/Order#: [id number] PCP: Date of : 1985 CC Report to: Gender: M Technologist: Eli Mosley Admission Status: Inpatient Technologist 2: Facility Performed: [facility] Location Performed: [facility] Diagnosis/ICD: R09.89 - Other specified symptoms and signs involving the circulatory and respiratory systems Indication: Pulmonary Embolism Procedure/CPT: 55833 - Peripheral venous duplex scan for DVT complete Patient History: Pertinent History: Previous DVT. CONCLUSIONS: Right Lower Venous: No evidence of acute deep vein thrombus visualized in the right lower extremity. Left Lower Venous: Left common femoral vein is negative for deep vein thrombus. Right Compressible Thrombus CFV Yes None PFV Yes None FV Proximal Yes None FV Mid Yes None FV Distal Yes None Popliteal Yes None Peroneal Yes None PTV Yes None NIKKI Post D.O. Final Normal [facility] Basic Metabolic Panel $$$on 12-22-2017 Anion gap 3 molar conc 8.5 mmol/L Low 10-20 Pa [facility] Comment on above: Performed By: #### C BC, PTINR, CMP12, MG, TROP, TSH, UR, BNP ####[facility] [place] [address] Calcium mass conc 9.0 mg/dL Normal 8.6-10.3 [facility] Comment on above: Result Comment: Plea se note new reference range as of November. Performed By: #### C BC, PTINR, CMP12, MG, TROP, TSH, UR, BNP ####[address] [address] Chloride molar conc 110 mmol/L High 98-107 [facility] Comment on above: Performed By: #### C BC, PTINR, CMP12, MG, TROP, TSH, UR, BNP ####[address] [address] CO2 molar conc 26 mmol/L Normal 21-32 [facility] Comment on above: Performed By: #### C BC, PTINR, CMP12, MG, TROP, TSH, UR, BNP ####[facility] [place] [address] Creatinine mass conc 1.00 mg/dL Normal 0.50-1.30 [facility] Comment on above: Result Comment: Plea se note new reference range as of November. Performed By: #### C BC, PTINR, CMP12, MG, TROP, TSH, UR, BNP ####[address] [address] Estimated Creatinine Clearance 112 mL/min Normal 94-145 [facility] Comment on above: Performed By: #### C BC, PTINR, CMP12, MG, TROP, TSH, UR, BNP ####[facility] [place] [address] GFR () >60 Normal [facility] Comment on above: Performed By: #### C BC, PTINR, CMP12, MG, TROP, TSH, UR, BNP ####[address] [address] GFR (Non ) >60 Normal [facility] Comment on above: Result Comment: eGFR Units of measure: mL/min/1.73 m 2 Performed By: #### C BC, PTINR, CMP12, MG, TROP, TSH, UR, BNP ####[address] [address] Glucose mass conc 84 mg/dL Normal 74-99 [facility] Comment on above: Performed By: #### C BC, PTINR, CMP12, MG, TROP, TSH, UR, BNP ####[address] [address] Potassium molar conc 4.5 mmol/L Normal 3.5-5.3 [facility] Comment on above: Performed By: #### C BC, PTINR, CMP12, MG, TROP, TSH, UR, BNP ####[address] [address] Sodium molar conc 140 mmol/L Normal 136-145 [facility] Comment on above: Performed By: #### C BC, PTINR, CMP12, MG, TROP, TSH, UR, BNP ####[address] [address] Urea nitrogen mass conc (Bld) 17 mg/dL Normal 6-23 [facility] Comment on above: Result Comment: Kimberly tracy note new reference range as of November. Performed By: #### C BC, PTINR, CMP12, MG, TROP, TSH, UR, BNP ####[address] [address] Complete Blood Count w/diff $$on 12-22-2017 Basophils Auto #/vol (Bld) 0.0 10 /uL Low 0.04-0.9 [facility] Comment on above: Performed By: #### C BC, PTINR, CMP12, MG, TROP, TSH, UR, BNP ####[place] [address] Basophils/100 WBC Auto (Bld) 1 % Normal 0-1 [facility] Comment on above: Performed By: #### C BC, PTINR, CMP12, MG, TROP, TSH, UR, BNP ####[address] [address] Eosinophils Auto #/vol (Bld) 0.1 10 3/uL Normal 0.03-0.6 [facility] Comment on above: Performed By: #### C BC, PTINR, CMP12, MG, TROP, TSH, UR, BNP ####[address] [address] Eosinophils/100 WBC Auto (Bld) 2 % Normal 0-3 [facility] Comment on above: Performed By: #### C BC, PTINR, CMP12, MG, TROP, TSH, UR, BNP ####[place] [address] Erythrocyte distribution width Auto Ratio (RBC) 17.2 % High 11.5-14.5 [facility] Comment on above: Performed By: #### C BC, PTINR, CMP12, MG, TROP, TSH, UR, BNP ####[address] [address] Hematocrit Auto Volume Fraction (Bld) 35.0 % Low 39-50 [facility] Comment on above: Performed By: #### C BC, PTINR, CMP12, MG, TROP, TSH, UR, BNP ####[address] [address] Hemoglobin mass conc (Bld) 10.0 g/dL Low 13.0-17.3 [facility] Comment on above: Performed By: #### C BC, PTINR, CMP12, MG, TROP, TSH, UR, BNP ####[address] [address] Immature Gran# (Auto) 0.0 10 3/uL Normal [facility] Comment on above: Performed By: #### C BC, PTINR, CMP12, MG, TROP, TSH, UR, BNP ####[address] [address] Immature granulocytes #/vol (Bld) 0.2 % Normal 0.0-1.2 [facility] Comment on above: Performed By: #### C BC, PTINR, CMP12, MG, TROP, TSH, UR, BNP ####[address] [address] Lymphocytes Auto #/vol (Bld) 1.7 10 3/uL Normal 1-3.5 [facility] Comment on above: Performed By: #### C BC, PTINR, CMP12, MG, TROP, TSH, UR, BNP ####[address] [address] Lymphocytes/100 WBC Auto (Bld) 38 % Normal 24-44 [facility] Comment on above: Performed By: #### C BC, PTINR, CMP12, MG, TROP, TSH, UR, BNP ####[address] [address] MCH Auto Entitic mass (RBC) 28.6 g/dL Low 33-37 [facility] Comment on above: Performed By: #### C BC, PTINR, CMP12, MG, TROP, TSH, UR, BNP ####[address] [address] MCH Auto Entitic mass (RBC) 21.5 pg Low 27-34 [facility] Comment on above: Performed By: #### C BC, PTINR, CMP12, MG, TROP, TSH, UR, BNP ####[address] [address] MCV Auto Entitic volume (RBC) 75.3 fL Low 80-100 [facility] Comment on above: Performed By: #### C BC, PTINR, CMP12, MG, TROP, TSH, UR, BNP ####[address] [address] Monocytes Auto #/vol (Bld) 0.4 10 3/uL Normal 0.04-0.9 [facility] Comment on above: Performed By: #### C BC, PTINR, CMP12, MG, TROP, TSH, UR, BNP ####[address] [address] Monocytes/100 WBC Auto (Bld) 9 % High 1-8 [facility] Comment on above: Performed By: #### C BC, PTINR, CMP12, MG, TROP, TSH, UR, BNP ####[address] [address] Neutrophils Auto #/vol (Bld) 2.3 10 3/uL Normal 1.8-7.0 [facility] Comment on above: Performed By: #### C BC, PTINR, CMP12, MG, TROP, TSH, UR, BNP ####[address] [address] Neutrophils/100 WBC Auto (Bld) 50 % Normal 42-76 [facility] Comment on above: Performed By: #### C BC, PTINR, CMP12, MG, TROP, TSH, UR, BNP ####[address] [address] Nucleated RBC/100 WBC Ratio (Bld) 0.0 % Normal 0.0-0.2 [facility] Comment on above: Performed By: #### C BC, PTINR, CMP12, MG, TROP, TSH, UR, BNP ####[address] [address] Platelet mean volume Auto Entitic volume (Bld) 10.1 fL Normal 7.4-10.4 [facility] Comment on above: Performed By: #### C BC, PTINR, CMP12, MG, TROP, TSH, UR, BNP ####[facility] [place] [address] Platelets Auto #/vol (Bld) 220 10 3/uL Normal 150-400 [facility] Comment on above: Performed By: #### C BC, PTINR, CMP12, MG, TROP, TSH, UR, BNP ####[address] [address] RBC Auto #/vol (Bld) 4.65 10 6/uL Normal 4.5-6.0 [facility] Comment on above: Performed By: #### C BC, PTINR, CMP12, MG, TROP, TSH, UR, BNP ####[address] [address] WBC Auto #/vol (Bld) 4.5 10 3/uL Normal 4.0-11.0 [facility] Comment on above: Performed By: #### C BC, PTINR, CMP12, MG, TROP, TSH, UR, BNP ####[address] [address] Consultation Reporton 2017 Consultation Report [facility] Patient: VINNIE OLIVAREZ [address] [facility] MR#: [id number] [place], [place] [address] : 1985 Ord. Auguste: Dept: PDOC Loc: 9W 926-2 Consultation Service Dt: 12/22/17 Report#: [id number] Adm Dt: 12/21/17 Dis Dt: Initial Physician Consultation - PCP/Chief Complaint Primary Care Physician: No Primary Physician Chief Complaint: chest pain - Past Medical History Cardiac: DVT Other Cardiac Hx: DVT to left calf Respiratory: Sleep Apnea GI: GERD , Male: Vasectomy Musculoskeletal: Degenerative Disc Disease - Social History Smoking Status: Current every day smoker Cigarettes per Day: 20 Does Patient Dip or Chew Tobacco: No Alcohol Use: No Use of Substances/Recreational Drugs: No Type: Marijuana Use Comment: used last night due to the pain - Family Health History Father Family Member Hx: Heart Disease, Diabetes Mother Family Member Hx: Heart Disease, Diabetes - Allergies Allergies/Adverse Reactions: Allergies cinnamon Allergy (Verified 12/21/17 19:56) Anaphylaxis - Medications Home Medications: Fluoxetine HCl [Prozac] 40 mg PO QHS 06/14/15 [History Last Taken 06/14/15] Oxcarbazepine [Trileptal] 600 mg PO BID 06/14/15 [History Last Taken 06/14/15] Quetiapine Fumarate [Seroquel Xr] 400 mg PO QHS 06/14/15 [History Last Taken 06/14/15] diphenhydrAMINE HCL [Benadryl] 50 mg PO QHS PRN 06/14/15 [History Last Taken 06/14/15] Gabapentin [Neurontin] 100 mg PO VARIABLE PRN 12/21/17 [History Last Taken Unknown] Current Medications: Current Medications Acetaminophen (Tylenol) 650 mg PO Q4 PRN PRN Reason: Pain (mild)/Temp above 38.3 C Dextrose (Dextrose Syringe) 25 ml IV Q15M PRN PRN Reason: Hypoglycemia Dextrose (Dextrose Syringe) 50 ml IV Q15M PRN PRN Reason: Hypoglycemia Dextrose (Instant Glucose) 37.5 g PO Q15M PRN PRN Reason: Hypoglycemia Diphenhydramine HCl (Benadryl) 50 mg PO QHS PRN PRN Reason: Sleep Enoxaparin Sodium (Lovenox) 120 mg SC 0800,1999 [facility] Last Admin: 12/22/17 09:11 Dose: 120 mg Fluoxetine HCl (Prozac) 40 mg PO QHS [facility] Last Admin: 12/21/17 21:40 Dose: 40 mg Glucagon (Glucagon) 1 mg IM Q15M PRN PRN Reason: Hypoglycemia Iron Sucrose 300 mg/ Sodium (Chloride) 115 mls @ 66.66 mls/hr IVPB DAILY [facility] Stop: 12/24/17 11:44 Ondansetron HCl (Zofran) 4 mg IV Q6 PRN PRN Reason: Nausea Oxcarbazepine (Trileptal) 600 mg PO BID [facility] Last Admin: 12/22/17 09:11 Dose: 600 mg Quetiapine Fumarate (Seroquel) 200 mg PO Q12 [facility] Last Admin: 12/22/17 11:35 Dose: 200 mg Tramadol HCl (Ultram) 50 mg PO Q4 PRN PRN Reason: Pain-moderate (4-6/10) Last Admin: 12/21/17 22:35 Dose: 50 mg - Diagnostic Studies Lab Data: Labs (last 24 hrs) 12/22/17 12/22/17 12/21/17 13:35 07:10 20:06 WBC 4.5 RBC 4.65 Hgb 10.0 L Hct 35.0 L MCV 75.3 L MCH 21.5 L MCHC 28.6 L RDW 17.2 H Plt Count 220 D MPV 10.1 Immature Gran % (Auto) 0.2 Neut % (Auto) 50 Lymph % (Auto) 38 [place] % (Auto) 9 H Eos % (Auto) 2 Baso % (Auto) 1 Nucleat RBC Rel Count 0.0 Immature Gran # (Auto) 0.0 Neut # (Auto) 2.3 Lymph # (Auto) 1.7 [place] # (Auto) 0.4 Eos # (Auto) 0.1 Baso # (Auto) 0.0 L Sodium 140 Potassium 4.5 Chloride 110 H Carbon Dioxide 26 Anion Gap 8.5 L BUN 17 Creatinine 1.00 Estim Creat Clear Calc 112 Est GFR ( Amer) >60 Est GFR (Non-Af Amer) >60 Fasting Glucose 84 Calcium 9.0 Phosphorus 3.6 Magnesium 2.00 Iron 26 L TIBC 415 % Saturation 6 Ferritin 9 L Troponin I < 0.020 12/21/17 18:57 WBC RBC Hgb Hct MCV MCH MCHC RDW Plt Count MPV Immature Gran % (Auto) Neut % (Auto) Lymph % (Auto) [place] % (Auto) Eos % (Auto) Baso % (Auto) Nucleat RBC Rel Count Immature Gran # (Auto) Neut # (Auto) Lymph # (Auto) [place] # (Auto) Eos # (Auto) Baso # (Auto) Sodium Potassium Chloride Carbon Dioxide Anion Gap BUN Creatinine Estim Creat Clear Calc Est GFR ( Amer) Est GFR (Non-Af Amer) Fasting Glucose Calcium Phosphorus Magnesium Iron TIBC % Saturation Ferritin Troponin I < 0.020 - Subjective Narrative ROS: Review of Systems completed. - I O/Vital Signs I O/VS: Intake/Output/Wt 12/19/17 12/20/17 12/21/17 12/22/17 23:59 23:59 23:59 23:59 Intake Total 375 Balance 375 Weight 121.3 kg Intake: Oral 375 Other: Height 1.8 m Vital Signs (last 24 hrs) Temp Pulse Resp BP Pulse Ox 12/22/17 17:16 36.6 C 52 L 14 114/75 99 12/22/17 14:00 36.7 C 57 L 14 121/72 99 12/22/17 10:00 36.5 C 51 L 20 118/76 99 12/22/17 06:00 36.2 C L 49 L 16 104/66 99 12/22/17 02:00 36.2 C L 59 L 16 115/77 99 12/21/17 20:43 36.4 C L 58 L 20 99 12/21/17 20:04 36.8 C 68 20 122/78 99 12/21/17 19:24 36.8 C 68 20 127/78 99 Oxygen: Oxygen O2 Sat by Pulse Oximetry 99 Oxygen Delivery Method Room Air - Comments Impression Comments: 12/22/17 17:36 STAFF PHYSICIAN NOTE OF PERSONAL INVOLVEMENT IN CARE As the attending physician, I certify that I personally reviewed the patient's history and personally examined the patient to confirm the physical findings described above, and that I reviewed the relevant imaging studies and available reports. I also discussed the differential diagnosis and all of the proposed management plans with the patient and individuals accompanying the patient to this visit. They had the opportunity to ask questions about the proposed management plans and to have those questions answered. Interval History: Patient is a 32 year-old man who had 2x LLE DVTs in 2007 2010 treated briefly,nicotine dependence, TIFFANIE on CPAP, and bipolar disorder who presents with 1-week of left sided chest pain with radiation to his L shoulder. pain is worse with coughing. He smokes daily(a pack a day since age of 11), social drinker. 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 He has strong family Hx of CAD but his grandfather had a stroke. Deneis recent long distance travel. His anemic but his stool colo has been normal. no evidence of bleeding form orifice. Review of Systems: General: [denies weight gain, denies loss of appetite, fever, chills, night sweats.] HEENT: [denies headaches, dizziness, head trauma, visual changes, eye pain, tinnitus, nosebleeds, hoarseness or throat pain] Respiratory: [+ve chest pain, denies dyspnea, cough and hemoptysis] Cardiovascular: [denies orthopnea, paroxysmal nocturnal dyspnea, and legs swelling] Gastrointestinal: [denies pain, nausea vomiting, diarrhea, constipation, melena or bleeding.] Genitourinary: [denies hematuria, frequency, urgency or dysuria] Neurology: [denies syncope, seizures, paralysis, paraesthesia] Endocrine: [denies polyuria, polydipsia, skin or hair changes, and heat or cold intolerance] Musculoskeletal: [denies joint pain, swelling, arthritis or myalgia] Hematologic: [denies bleeding, adenopathy and easy bruising] Skin: [denies rashes and skin discoloration] Psychiatry: [denies depression] Input/Output: Reviewed Oxygen requirements: Reviewed Ventilator Information: Reviewed Clinical Examination: General appearance: not in pain or distress, in no respiratory distress HEENT: [Atraumatic/normocephalic, EOMI, ARNOLDO, pharynx clear, moist mucosa, redness of the uvula appreciated] Neck: Supple, no jugular venous distension, lymphadenopathy, thyromegaly or carotid bruits Chest: normal breath sounds, no wheezing, n crackles and no tenderness over ribs Cardiovascular: Normal S1 , S2, regular rate and rhythm, no murmur, rub or gallop Abdomen: Normal sounds present, soft, lax with no tenderness, no hepatosplenomegaly, and no masses Extremities: No edema. Pulses are equally present. Skin: intact, no rashes Neurologic: Alert and oriented x 3, No focal deficit Investigations: Labs, radiological imaging and cardiac work up were reviewed Assessment Plan:[] 1- LLL small PE Hx of 2 previosu DVTs 2- RUl nodules 3- Nicotine dependence 4- mild mediastinal hilar LNs 5- Moderate to large paraesophageal hernia Patient history is very suggestive all acute pulmonary embolism. The fact that his symptoms started one week ago, may explain the partial resolution of the PE. Patient should be anticoagulated lifelong. I would recommend direct oral anticoagulant like Eliquis or Xarelto he can switched to Elquis starting tonight Lower extremity ultrasound to rule out DVTs. No further workup is needed. Clearly this patient as hypercoagulable status. Patient had lung nodules that need to be followed up as outpatient with Paraesophgeal hernia can be followed up by Dr. Maury TONG work up as per primary MD Patient was encouraged to quit smoking Normal [facility] Ferritinon 12-22-2017 Ferritin [Mass/volume] in Serum or Plasma 9 ug/L Low 20-300 [facility] Comment on above: Result Comment: Perf orming Site: [facility] - [id number] [place], [place] Performed By: #### C BC, PTINR, CMP12, MG, TROP, TSH, UR, BNP ####[facility] [place] [address] General Medical Progress Not lisa 12-22-2017 Protein mass conc [facility] Patient: VINNIE OLIVAREZ [address] [facility] MR#: [id number] [place], [place] [address] : 1985 OrdYana Auguste: Dept: PDOC Loc: 9W 926-2 General Medical Progress Note Service Dt: 12/22/17 Report#: [id number] Adm Dt: 12/21/17 Dis Dt: 12/24/17 General-Medical Progress Note - Patient Visit Reason Visit Reason: PULMONARY EMBOLUS - Chief Complaint Chief Complaint: chest pain - Subjective Narrative HPI/ROS: Patient seen and examined at bedside this AM. he stated that he is still having some chest discomfort but it has been improving and is rated 5/10. he denied any other complaints at this time. - Review of Systems Constitutional: Reports: no symptoms Eyes: Reports: no symptoms ENT: Reports: no symptoms Respiratory: Reports: no symptoms reported Cardiovascular: Reports: other (chest discomfort that has been improving) Gastrointestinal: Reports: no symptoms. Denies: abdominal pain, nausea, vomiting Genitourinary: Reports: no symptoms Musculoskeletal: Reports: no symptoms Integumentary: Reports: no symptoms Neurological: Reports: no symptoms Psychiatric: Reports: no symptoms Endocrine: Reports: no symptoms reported Hematological/Lymphatic: Reports: no symptoms Allergic/Immunologic: Reports: no symptoms - I O/Vital Signs I O/VS: Vital Signs Temp 36.3 C L 12/24/17 14:00 Pulse 57 L 12/24/17 14:00 Resp 18 12/24/17 14:00 BP 124/77 12/24/17 14:00 Pulse Ox 99 12/24/17 14:00 Vital Signs Temp 36.7 C 12/22/17 14:00 Pulse 57 L 12/22/17 14:00 Resp 14 12/22/17 14:00 BP 121/72 12/22/17 14:00 Pulse Ox 99 12/22/17 14:00 Intake Output 12/21/17 12/22/17 12/22/17 23:59 11:59 23:59 Intake Total 100 275 Balance 100 275 Weight 121.3 kg Intake: Oral 100 275 Other: Height 1.8 m - Objective Narrative Patient Exam: Constitutional: Positive: alert, in no apparent distress, obese HEENT: Positive: EOMI Neck: Positive: Supple, no JVD Respiratory: Negative: rhonchi, tachypnea, wheezes, stridor, accessory muscle use Cardiovascular: Positive: regular rate, normal rhythm, +S1, +S2, other (Chest pain is reproducible on exam). Negative: rubs, gallop, clicks, +S3, +S4 GI/Abdominal: Positive: soft, nontender, nondistended, normal bowel sounds. Negative: guarding, rebound, rigidity : Positive: deferred Extremities: Positive: no edema, no cellulitis, bilateral pulses positive. Negative: calf tenderness Neurological: Positive: alert, oriented X3 Integumentary: Positive: warm, dry, intact, other Psychiatric: Positive: normal affect, normal mood - Lab Diagnostic Data Diagrams: 12/24/17 06:55 12/24/17 06:55 Chemistry: Chemistry (Last 24hrs) 12/22/17 12/22/17 12/21/17 13:35 07:10 20:06 Sodium 140 Potassium 4.5 Chloride 110 H Carbon Dioxide 26 Anion Gap 8.5 L BUN 17 Creatinine 1.00 Estim Creat Clear Calc 112 Est GFR ( Amer) >60 Est GFR (Non-Af Amer) >60 Fasting Glucose 84 Calcium 9.0 Phosphorus 3.6 Magnesium 2.00 Iron 26 L TIBC 415 % Saturation 6 Total Bilirubin AST ALT Alkaline Phosphatase Troponin I < 0.020 B-Natriuretic Peptide Total Protein Albumin TSH 12/21/17 12/21/17 12/21/17 18:57 16:10 16:10 Sodium 139 Potassium 4.2 Chloride 107 Carbon Dioxide 25 Anion Gap 11.2 BUN 12 Creatinine 1.30 Estim Creat Clear Calc No Ht and/or Wt Est GFR ( Amer) >60 Est GFR (Non-Af Amer) >60 Fasting Glucose 84 Calcium 9.8 Phosphorus Magnesium 1.87 Iron TIBC % Saturation Total Bilirubin 0.2 AST 22 ALT 26 Alkaline Phosphatase 90 Troponin I < 0.020 < 0.020 B-Natriuretic Peptide 7 Total Protein 7.0 Albumin 4.3 TSH 1.36 - Medications Meds: Current Medications Acetaminophen (Tylenol) 650 mg PO Q4 PRN PRN Reason: Pain (mild)/Temp above 38.3 C Dextrose (Dextrose Syringe) 25 ml IV Q15M PRN PRN Reason: Hypoglycemia Dextrose (Dextrose Syringe) 50 ml IV Q15M PRN PRN Reason: Hypoglycemia Dextrose (Instant Glucose) 37.5 g PO Q15M PRN PRN Reason: Hypoglycemia Diphenhydramine HCl (Benadryl) 50 mg PO QHS PRN PRN Reason: Sleep Enoxaparin Sodium (Lovenox) 120 mg SC 0800,1999 [facility] Last Admin: 12/22/17 09:11 Dose: 120 mg Fluoxetine HCl (Prozac) 40 mg PO QHS [facility] Last Admin: 12/21/17 21:40 Dose: 40 mg Glucagon (Glucagon) 1 mg IM Q15M PRN PRN Reason: Hypoglycemia Iron Sucrose 300 mg/ Sodium (Chloride) 115 mls @ 66.66 mls/hr IVPB DAILY [facility] Stop: 12/25/17 15:34 Ondansetron HCl (Zofran) 4 mg IV Q6 PRN PRN Reason: Nausea Oxcarbazepine (Trileptal) 600 mg PO BID [facility] Last Admin: 12/22/17 09:11 Dose: 600 mg Quetiapine Fumarate (Seroquel) 200 mg PO Q12 [facility] Last Admin: 12/22/17 11:35 Dose: 200 mg Tramadol HCl (Ultram) 50 mg PO Q4 PRN PRN Reason: Pain-moderate (4-6/10) Last Admin: 12/21/17 22:35 Dose: 50 mg Allergies/Adv: Allergies Allergy/AdvReac Type Severity Reaction Status Date / Time cinnamon Allergy Anaphylaxis Verified 12/21/17 19:56 - Assessment/Plan (1) Abnormal computed tomography angiography (CTA) Status: Acute (2) Pulmonary embolus Status: Suspected QualifierTitle: Pulmonary embolism type: other (3) Atypical chest pain Status: Acute (4) Anemia Status: Chronic (5) Bipolar disease, chronic Status: Chronic (6) History of DVT of lower extremity Status: Chronic (7) Sleep apnea Status: Chronic QualifierTitle: Sleep apnea type: obstructive Qualified Code(s): G47.33 - Obstructive sleep apnea (adult) (pediatric) (8) DVT prophylaxis Status: Acute - Comments Impression: 12/22/17 15:39 This is a 32 y/o male with a PMH significant for 2x LLE DVT, TIFFANIE on CPAP, and bipolar disorder who presents to [facility] ED from home with 1-week of substernal chest pain. # Abnormal computed tomography angiography (CTA) # Pulmonary embolus # Atypical chest pain # Anemia # Bipolar disease, chronic # History of DVT of lower extremity # Sleep apnea # DVT prophylaxis plan: -- Patient has had two prior episodes of DVT in the past and would need to be on anticoagulation. He has been on coumadin in the past after suffering a DVT, however, the duration and the reasoning for discontinuation is unclear His CTA was only suggestive of PE therefore we'll consult pulm to assess whether he would need a prophylactic dose only vs treatment dose. -- C/W lovenox 1mg/kg BID. -- Will order a hypercoagulation panel -- patient has had a hx of Fe deficiency anemia in the past. His CBC was significant for microcytic hypochromic anemia. Will get an anemia panel to assess whether he would need iron supplements -- CPAP qhs, use home settings. -- echo and duplex u/s of RLE pending -- On therapeutic lovenox. Progress Note Co-Signature - Attestation Attestation: Saw Patient Agree Additionally: I have seen and evaluated this patient, I personally obtained the antonio critical portions of the Progress Note, I was present for antonio critical portions performed by the resident, I reviewed resident's documentation discussed Pt with resident, I agree with resident's medical decision making as documented in note Patient evaluation date: 12/22/17 Normal [facility] Iron Profileon 12-22-2017 % Iron Saturation 6 % Normal [facility] Comment on above: Performed By: #### C BC, PTINR, CMP12, MG, TROP, TSH, UR, BNP ####[address] [address] Iron mass conc 26 ug/dL Low 35-150 [facility] Comment on above: Result Comment: Kimberly tracy note new reference range as of November. Performed By: #### C BC, PTINR, CMP12, MG, TROP, TSH, UR, BNP ####[address] [address] Total Iron Binding Capacity 415 ug/dl Normal 240-445 [facility] Comment on above: Performed By: #### C BC, PTINR, CMP12, MG, TROP, TSH, UR, BNP ####[address] [address] Magnesium $$on 12-22-2017 Magnesium mass conc 2.00 mg/dL Normal 1.60-2.40 [facility] Comment on above: Performed By: #### C BC, PTINR, CMP12, MG, TROP, TSH, UR, BNP ####[address] [address] Phosphoruson 12-22-2017 Phosphate mass conc 3.6 mg/dL Normal 2.5-4.9 [facility] Comment on above: Performed By: #### C BC, PTINR, CMP12, MG, TROP, TSH, UR, BNP ####[address] [address] Protime INRon 12-22-2017 INR Coag RelTime (PPP) 1.1 {INR} Normal 0.9-1.1 [facility] Comment on above: Result Comment: Pledali se note new reference range OF 08/13/2017 Performed By: #### C BC, PTINR, CMP12, MG, TROP, TSH, UR, BNP ####[facility] [place], [place] [id number] Protein mass conc 12.6 sec Normal 9.8-12.7 [facility] Comment on above: Result Comment: Plea se note new reference range OF 08/13/2017 Performed By: #### C BC, PTINR, CMP12, MG, TROP, TSH, UR, BNP ####[facility] [place] [address] [id number] B-type Natriuretic Peptideon 12-21-2017 Natriuretic peptide B mass conc (Bld) 7 pg/mL Normal 0-100 [facility] Comment on above: Result Comment: Refe rence Intervals:<100 pg/mL - Heart failure [id number] pg/mL - Intermediate probability of acute heartfailure exacerbation. Correlate with clinical context andpatient history.>=300 pg/mL - Heart failure likely. Correlate with clinicalcontext and patient history. Performed By: #### C BC, PTINR, CMP12, MG, TROP, TSH, UR, BNP ####[facility] [place], [place] [id number] Chest CTA - Pulmonary Embolu son 12-21-2017 Chest CTA - Pulmonary Embolus [facility] Patient: VINNIE OLIVAREZ [address] [facility] MR#: [id number] [place], [place] [address] : 1985 Ord. .: Pal Faye MD Dept: Diagnostic Imaging Loc: 1EDA DI REPORT Service Dt:12/21/17 Report#: [id number] Adm Dt: 12/21/17 Dis Dt: Comments: STUDY: CT Chest CTA - Pulmonary Embolus; 12/21/2017 6:20 pm INDICATION: Chest pain and shortness of breath, history of DVT COMPARISON: None. ACCESSION NUMBER(S): [id number] ORDERING CLINICIAN: Pal Faye TECHNIQUE: Helical data acquisition of the chest was obtained following administration of 97 mL Isovue 370 intravenously for CTA chest PE protocol.. Images were reformatted in axial, coronal, and sagittal planes. Three-dimensional reconstructions were generated and reviewed. FINDINGS: LUNGS/PLEURA/LARGE AIRWAYS: Diffuse bronchial wall thickening. The inferior lung bases were excluded from the images. Mild bibasilar atelectasis. There are a few nodular opacities in the right upper lobe for example up to 6 mm on image 70 and 7 mm on image 92. No definite sizeable pleural effusion. MEDIASTINUM AND JEFF Mildly prominent paratracheal and subcarinal mediastinal nodes up to 12 mm short axis. Prominent hilar nodes up to 11 mm short axis on the right and 11 mm short axis on the left. ESOPHAGUS: Moderate to large paraesophageal hiatal hernia increased since previous. Mildly prominent nonspecific nodes about the gastroesophageal junction measuring up to 7 mm short axis. HEART: Mildly enlarged. No pericardial effusion. Coronary arteries suboptimally evaluated. VASCULAR: Thoracic aorta is normal in course and caliber. No central pulmonary embolism. There is a small filling defect in one of the left lower lobe pulmonary arterial branches suspicious for small peripheral pulmonary embolism, best shown on axial image 114 and coronal images 107 and 108. No definite additional pulmonary arterial filling defects are identified. CHEST WALL AND LOWER NECK: No supraclavicular or axillary adenopathy. UPPER ABDOMEN: As above. OSSEOUS STRUCTURES: No suspicious osseous lesions. Degenerative changes visualized spine. ADDITIONAL FINDINGS: None significant. IMPRESSION: Findings suspicious for small peripheral left lower lobe pulmonary embolism as described. Diffuse bronchial wall thickening. There are a few nodular opacities in the right upper lobe up to 7 mm as described for which follow-up recommended. Mild mediastinal and bilateral hilar adenopathy. Moderate to large paraesophageal hiatal hernia worsened since previous. Findings called to Dr. Faye at 7 pm on 12/21/2017. Dictated by: Will Rangel Electronically Signed by: Will Rangel 12/21/2017 7:02 PM Normal [facility] Complete Blood Count w/diff $$on 12-21-2017 Basophils Auto #/vol (Bld) 0.1 10 /uL Normal 0.04-0.9 [facility] Comment on above: Performed By: #### C BC, PTINR, CMP12, MG, TROP, TSH, UR, BNP ####[place] [address] Basophils/100 WBC Auto (Bld) 1 % Normal 0-1 [facility] Comment on above: Performed By: #### C BC, PTINR, CMP12, MG, TROP, TSH, UR, BNP ####[place] [address] Eosinophils Auto #/vol (Bld) 0.1 10 3/uL Normal 0.03-0.6 [facility] Comment on above: Performed By: #### C BC, PTINR, CMP12, MG, TROP, TSH, UR, BNP ####[place] [address] Eosinophils/100 WBC Auto (Bld) 1 % Normal 0-3 [facility] Comment on above: Performed By: #### C BC, PTINR, CMP12, MG, TROP, TSH, UR, BNP ####[place] [address] Erythrocyte distribution width Auto Ratio (RBC) 17.6 % High 11.5-14.5 [facility] Comment on above: Performed By: #### C BC, PTINR, CMP12, MG, TROP, TSH, UR, BNP ####[place] [address] Hematocrit Auto Volume Fraction (Bld) 36.3 % Low 39-50 [facility] Comment on above: Performed By: #### C BC, PTINR, CMP12, MG, TROP, TSH, UR, BNP ####[place] [address] Hemoglobin mass conc (Bld) 10.3 g/dL Low 13.0-17.3 [facility] Comment on above: Performed By: #### C BC, PTINR, CMP12, MG, TROP, TSH, UR, BNP ####[address] [address] Immature Gran# (Auto) 0.0 10 3/uL Normal [facility] Comment on above: Performed By: #### C BC, PTINR, CMP12, MG, TROP, TSH, UR, BNP ####[address] [address] Immature granulocytes #/vol (Bld) 0.3 % Normal 0.0-1.2 [facility] Comment on above: Performed By: #### C BC, PTINR, CMP12, MG, TROP, TSH, UR, BNP ####[address] [address] Lymphocytes Auto #/vol (Bld) 2.3 10 3/uL Normal 1-3.5 [facility] Comment on above: Performed By: #### C BC, PTINR, CMP12, MG, TROP, TSH, UR, BNP ####[address] [address] Lymphocytes/100 WBC Auto (Bld) 36 % Normal 24-44 [facility] Comment on above: Performed By: #### C BC, PTINR, CMP12, MG, TROP, TSH, UR, BNP ####[address] [address] MCH Auto Entitic mass (RBC) 28.4 g/dL Low 33-37 [facility] Comment on above: Performed By: #### C BC, PTINR, CMP12, MG, TROP, TSH, UR, BNP ####[address] [address] MCH Auto Entitic mass (RBC) 21.3 pg Low 27-34 [facility] Comment on above: Performed By: #### C BC, PTINR, CMP12, MG, TROP, TSH, UR, BNP ####[address] [address] MCV Auto Entitic volume (RBC) 75.0 fL Low 80-100 [facility] Comment on above: Performed By: #### C BC, PTINR, CMP12, MG, TROP, TSH, UR, BNP ####[address] [address] Monocytes Auto #/vol (Bld) 0.5 10 3/uL Normal 0.04-0.9 [facility] Comment on above: Performed By: #### C BC, PTINR, CMP12, MG, TROP, TSH, UR, BNP ####[address] [address] Monocytes/100 WBC Auto (Bld) 7 % Normal 1-8 [facility] Comment on above: Performed By: #### C BC, PTINR, CMP12, MG, TROP, TSH, UR, BNP ####[address] [address] Neutrophils Auto #/vol (Bld) 3.5 10 3/uL Normal 1.8-7.0 [facility] Comment on above: Performed By: #### C BC, PTINR, CMP12, MG, TROP, TSH, UR, BNP ####[address] [address] Neutrophils/100 WBC Auto (Bld) 55 % Normal 42-76 [facility] Comment on above: Performed By: #### C BC, PTINR, CMP12, MG, TROP, TSH, UR, BNP ####[address] [address] Nucleated RBC/100 WBC Ratio (Bld) 0.0 % Normal 0.0-0.2 [facility] Comment on above: Performed By: #### C BC, PTINR, CMP12, MG, TROP, TSH, UR, BNP ####[address] [place] [address] Platelet mean volume Auto Entitic volume (Bld) 10.0 fL Normal 7.4-10.4 [facility] Comment on above: Performed By: #### C BC, PTINR, CMP12, MG, TROP, TSH, UR, BNP ####[address] [address] Platelets Auto #/vol (Bld) 272 10 3/uL Normal 150-400 [facility] Comment on above: Performed By: #### C BC, PTINR, CMP12, MG, TROP, TSH, UR, BNP ####[address] [address] RBC Auto #/vol (Bld) 4.84 10 6/uL Normal 4.5-6.0 [facility] Comment on above: Performed By: #### C BC, PTINR, CMP12, MG, TROP, TSH, UR, BNP ####[address] [address] WBC Auto #/vol (Bld) 6.4 10 3/uL Normal 4.0-11.0 [facility] Comment on above: Performed By: #### C BC, PTINR, CMP12, MG, TROP, TSH, UR, BNP ####[address] [address] Comprehensive Metabolic Pane erin 12-21-2017 Albumin mass conc 4.3 g/dL Normal 3.4-5.0 [facility] Comment on above: Performed By: #### C BC, PTINR, CMP12, MG, TROP, TSH, UR, BNP ####[address] [address] ALP enzyme act/vol 90 U/L Normal 33-120 [facility] Comment on above: Result Comment: Kimberly tracy note new reference range as of November. Performed By: #### C BC, PTINR, CMP12, MG, TROP, TSH, UR, BNP ####[address] [address] ALT enzyme act/vol 26 U/L Normal 4-52 [facility] Comment on above: Result Comment: Plea se note new reference range as of November. Performed By: #### C BC, PTINR, CMP12, MG, TROP, TSH, UR, BNP ####[address] [address] Anion gap 3 molar conc 11.2 mmol/L Normal 10-20 [facility] Comment on above: Performed By: #### C BC, PTINR, CMP12, MG, TROP, TSH, UR, BNP ####[address] [address] AST enzyme act/vol 22 U/L Normal 9-39 [facility] Comment on above: Result Comment: Plea se note new reference range as of November. Performed By: #### C BC, PTINR, CMP12, MG, TROP, TSH, UR, BNP ####[address] [address] Bilirubin Ql (U) 0.2 mg/dL Normal 0.0-1.2 [facility] Comment on above: Performed By: #### C BC, PTINR, CMP12, MG, TROP, TSH, UR, BNP ####[address] [address] Calcium mass conc 9.8 mg/dL Normal 8.6-10.3 [facility] Comment on above: Result Comment: Plea se note new reference range as of November. Performed By: #### C BC, PTINR, CMP12, MG, TROP, TSH, UR, BNP ####[address] [address] Chloride molar conc 107 mmol/L Normal 98-107 [facility] Comment on above: Performed By: #### C BC, PTINR, CMP12, MG, TROP, TSH, UR, BNP ####[address] [address] CO2 molar conc 25 mmol/L Normal 21-32 [facility] Comment on above: Performed By: #### C BC, PTINR, CMP12, MG, TROP, TSH, UR, BNP ####[address] [address] Creatinine mass conc 1.30 mg/dL Normal 0.50-1.30 [facility] Comment on above: Result Comment: Kimberly tracy note new reference range as of November. Performed By: #### C BC, PTINR, CMP12, MG, TROP, TSH, UR, BNP ####[address] [address] GFR () >60 Normal [facility] Comment on above: Performed By: #### C BC, PTINR, CMP12, MG, TROP, TSH, UR, BNP ####[address] [address] GFR (Non ) >60 Normal [facility] Comment on above: Result Comment: eGFR Units of measure: mL/min/1.73 m 2 Performed By: #### C BC, PTINR, CMP12, MG, TROP, TSH, UR, BNP ####[address] [address] Glucose mass conc 84 mg/dL Normal 74-99 [facility] Comment on above: Performed By: #### C BC, PTINR, CMP12, MG, TROP, TSH, UR, BNP ####[address] [address] Potassium molar conc 4.2 mmol/L Normal 3.5-5.3 [facility] Comment on above: Performed By: #### C BC, PTINR, CMP12, MG, TROP, TSH, UR, BNP ####[facility] [place] [id number] Protein mass conc 7.0 g/dL Normal 6.4-8.2 [facility] Comment on above: Performed By: #### C BC, PTINR, CMP12, MG, TROP, TSH, UR, BNP ####[address] [address] Sodium molar conc 139 mmol/L Normal 136-145 [facility] Comment on above: Performed By: #### C BC, PTINR, CMP12, MG, TROP, TSH, UR, BNP ####[address] [address] Urea nitrogen mass conc (Bld) 12 mg/dL Normal 6-23 [facility] Comment on above: Result Comment: Kimberly tracy note new reference range as of November. Performed By: #### C BC, PTINR, CMP12, MG, TROP, TSH, UR, BNP ####[address] [address] ED Visit Summaryon 8 ED Visit Summary [facility] Patient: VINNIE OLIVAREZ [address] [facility] MR#: [id number] [place], [place] [address] : 1985 Ord. : Dept: Emergency Department Loc: 1EDHOLD EDADM2-1 ER Physician Documentation Service Dt: 12/21/17 Report#: [id number] Adm Dt: 12/21/17 Dis Dt: Patient Information - Chief Complaint Initial Complaint: MULTI MED COMPLAINTS Chief Complaint: Multiple Medical Complaints - Nursing Triage Note Nursing Triage Note: c/o constant sharp mid chest pain for pasdt week. also pain left shpilder with sob,dizziness and feeling lighthjeaded. took tylenol yesterday with little relief. 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 Patient states it feels as though someone is punching him in the chest during the peaks. Patient also states it feels as though his heart ?flip flops.? Patient admits shortness of breath, lightheadedness and dizziness. Patient denies previous similar episodes. Patient denies cough, fever, chills, abdominal pain, calf tenderness and calf swelling. Patient admits positive sick contact with a friend who had pneumonia and a sinus infection. Patient has a significant family cardiac history with his father having a quadruple coronary artery bypass in his late 40s or early 50s and his mother who has 2 coronary stents. Patient states he had a period of left calf tenderness last week that has since resolved. Patient is a current everyday cigarette smoker. - Review of Systems Constitutional: Negative: chills, fever EENTM: Positive: no symptoms reported Respiratory: Positive: shortness of breath. Negative: cough Cardiac (ROS): Positive: chest pain, other (heart ?flip flops?) ABD/GI: Negative: abdominal pain : Positive: no symptoms reported Musculoskeletal: Positive: other (calf tenderness, calf swelling) Skin: Positive: no symptoms reported Neurological: Positive: other (lightheadedness, dizziness) Endocrine: Positive: no symptoms reported Hematologic/Lymphatic: Positive: no symptoms reported Psychiatric: Positive: no symptoms All Other Systems: Reviewed and Negative - Physical Exam General appearance: Positive: alert, in no apparent distress HEENT: Positive: head normal inspection, PERRL, EOMI Neck: Positive: Supple Respiratory: Positive: normal lung sounds bilaterally Cardiovascular: Positive: regular rate, normal rhythm. Negative: other (No chest wall nontender to palpation.) GI/Abdominal: Positive: soft, nontender Extremities: Positive: normal inspection, full ROM. Negative: leg edema, calf tenderness Neurological: Positive: alert, oriented X3 Integumentary: Positive: warm, dry, intact Psychiatric: Positive: normal affect, normal mood - Social Medical History Smoking Status: Current every day smoker Alcohol Use: No Drug Use: No Involved in Unsafe/Hurtful Relationship: No Is Patient Being Hurt at Home or Feeling Unsafe: No Cardiac Hx: DVT Other Cardiac Hx: DVT to left calf Respiratory Hx: Sleep Apnea , Male Hx: Vasectomy Musculoskeletal Hx: Degenerative Disc Disease Psych Hx: Bipolar Disorder - Family History Father Family Hx: Heart Disease, Diabetes Mother Family Hx: Heart Disease, Diabetes - Vital Signs Vitals: Vital Signs Temp Pulse Resp BP Pulse Ox 12/21/17 15:25 37.2 C 65 18 139/76 98 - MDM/Admission Progress Note MDM Note: 12/21/17 19:19 Patient is noted to have a small pulmonary embolus is left lower lung. He was treated Lovenox 1 mg/kg here in the ED and placed on observation of the care of Dr. Rivera. - Critical Care Time Total Critical Care Time (min): 0 - Radiology Data Radiology results: report reviewed, image reviewed Interpreted by Me: Yes Radiology Impressions: 12/21/17 17:14 US left leg IMPRESSION: 1. No evidence of any deep venous thrombosis involving the left lower extremity veins. Dictated by: Austin Acosta Electronically Signed by: Austin Acosta 12/21/2017 5:02 PM CTA IMPRESSION: 1. Findings suspicious for small peripheral left lower lobe pulmonary embolism as described. 2. Diffuse bronchial wall thickening. 3. There are a few nodular opacities in the right upper lobe up to 7 mm. 4. Mild mediastinal and bilateral hilar adenopathy. 5. Moderate to large paraesophageal hiatal hernia worsened since previous. Findings called to Dr. Faye at 7 pm on 12/21/2017. Dictated by: Will Rangel Electronically Signed by: Will Rangel 12/21/2017 7:02 PM ED Physician Disposition - Clinical Impression Clinical Impression: Pulmonary embolus - Disposition Disposition: ADMIT THROUGH THE ED - Discharge EDM Scribe Attestation - Scribe Attestation Documented by: Fernandez Ruano Acting as scribe for: Pal Faye - MD Chan Attestation MD Chan Attestation: 12/21/17 16:12 ED MD Chan Attestation All medical record entries made by the Scribe were at my direction and personally dictated by me. I have reviewed the chart and agree that the record accurately reflects my personal performance of the history, physical exam, assessment and plan. I have also personally directed, reviewed, and agree with the discharge instructions. Normal [facility] History AND Physicalon 12-21 History AND Physical [facility] Patient: VINNIE OLIVAREZ [address] [facility] MR#: [id number] [place], [place] [address] : 1985 Ord. : Dept: PDOC Loc: 9W 926-2 History Physical Service Dt: 12/21/17 Report#: [id number] Adm Dt: 12/21/17 Dis Dt: 12/24/17 History and Physical - Date of Service Date of Service: 12/21/17 - PCP/Chief Complaint Primary Care Physician: No Primary Physician Chief Complaint: chest pain - Patient Information HPI/ROS/Exam: Patient is a 32 y/o male with a PMH significant for 2x LLE DVT, TIFFANIE on CPAP, and bipolar disorder who presents to [facility] ED from home with 1-week of substernal chest pain. Patient states that he's been in his usual state of health up until a week ago when he developed sporadic substernal chest pain. There's radiation to his L shoulder. He describes the pain as getting punched in his chest and it usually resolves on its own after 1-2 minutes. Patient also endorses SOB, lightheadedness, and palpitations when chest pain starts. There are no particular alleviating and worsening factors. He has never experienced this before. Today he felt like he's more tired so he decided to come to the hospital for further evaluation. There's associated tightness in the LLE but he attributes it to walking and running around during the day. Patient denies fever, chills, nausea, vomiting, abdominal pain, and LE swelling. No numbness, tingling, and weakness. He further denies urinary symptoms including dysuria, frequency, and urgency. Social history pertinent for daily smoker (a pack a day since age of 11), social drinker. 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 He denies recent long-distance travel. Family history pertinent for dad had a quadruple bypass in his 50s and mom had multiple stents placed in her 50s. No bleeding/clotting disorders in the family. Of note, patient had 2 x LLE DVTs: 1st was in 2007 when he was treated with heparin and placed on coumadin for a short period of time and 2nd was 5-6 years ago when he was on therapeutic lovenox BID for 2 weeks. Cardiac: DVT Other Cardiac Hx: DVT to left calf Respiratory: Sleep Apnea , Male: Vasectomy Musculoskeletal: Degenerative Disc Disease - Social History Smoking Status: Current every day smoker Cigarettes per Day: 20 Does Patient Dip or Chew Tobacco: No Alcohol Use: No Use of Substances/Recreational Drugs: No Type: Marijuana Use Comment: used last night due to the pain - Family Health History Father Family Member Hx: Heart Disease, Diabetes Mother Family Member Hx: Heart Disease, Diabetes - Allergies Allergies/Adverse Reactions: Allergies cinnamon Allergy (Verified 12/21/17 19:56) Anaphylaxis - Medications Home Medications: Fluoxetine HCl [Prozac] 40 mg PO QHS 06/14/15 [History Last Taken 06/14/15] Oxcarbazepine [Trileptal] 600 mg PO BID 06/14/15 [History Last Taken 06/14/15] Quetiapine Fumarate [Seroquel Xr] 400 mg PO QHS 06/14/15 [History Last Taken 06/14/15] diphenhydrAMINE HCL [Benadryl] 50 mg PO QHS PRN 06/14/15 [History Last Taken 06/14/15] Gabapentin [Neurontin] 100 mg PO VARIABLE PRN 12/21/17 [History Last Taken Unknown] Apixaban [Eliquis] 10 mg PO BID 5 Days #10 tab 12/24/17 [Rx Last Taken Unknown] Ferrous Sulfate [Feosol Tablet] 1 tab PO DAILY #30 tab 12/24/17 [Rx Last Taken Unknown] Apixaban [Eliquis] 5 mg PO BID #60 tablet 12/30/17 [Rx Last Taken Unknown] Fluoxetine HCl [Prozac] 20 mg PO BID 06/14/15 [History Last Taken 06/14/15] Oxcarbazepine [Trileptal] 600 mg PO BID 06/14/15 [History Last Taken 06/14/15] Quetiapine Fumarate [Seroquel Xr] 400 mg PO DAILY 06/14/15 [History Last Taken 06/14/15] diphenhydrAMINE HCL [Benadryl] 50 mg PO QHS PRN 06/14/15 [History Last Taken 06/14/15] hydrOXYzine PAMOATE [Vistaril] 50 mg PO QID PRN 06/14/15 [History Last Taken 06/14/15] HYDROcodone 5 mg/ACETAM 325 mg [[place] 5/325 mg] 1 tab PO Q8 #15 tab 03/26/16 [Rx Last Taken Unknown] - Diagnostic Studies Lab Data: Labs (last 24 hrs) 12/21/17 12/21/17 12/21/17 18:57 16:10 16:10 WBC RBC Hgb Hct MCV MCH MCHC RDW Plt Count MPV Immature Gran % (Auto) Neut % (Auto) Lymph % (Auto) [place] % (Auto) Eos % (Auto) Baso % (Auto) Nucleat RBC Rel Count Immature Gran # (Auto) Neut # (Auto) Lymph # (Auto) [place] # (Auto) Eos # (Auto) Baso # (Auto) Sodium Potassium Chloride Carbon Dioxide Anion Gap BUN Creatinine Estim Creat Clear Calc Est GFR ( Amer) Est GFR (Non-Af Amer) Fasting Glucose Calcium Magnesium Total Bilirubin AST ALT Alkaline Phosphatase Troponin I < 0.020 B-Natriuretic Peptide 7 Total Protein Albumin TSH Urine Color Yellow Urine Clarity Cloudy Urine pH 6.0 Ur Specific [place] 1.024 Urine Protein Negative Urine Glucose (UA) Negative Urine Ketones Negative Urine Blood Negative Urine Nitrate Negative Urine Bilirubin Negative Urine Urobilinogen Normal Ur Leukocyte Esterase 1+ H Urine RBC 1-3 Urine WBC 5-10 H Ur Squamous Epith Cells Rare Amorphous Sediment Occasional Urine Mucus Rare 12/21/17 16:10 WBC 6.4 RBC 4.84 Hgb 10.3 L Hct 36.3 L MCV 75.0 L MCH 21.3 L MCHC 28.4 L RDW 17.6 H Plt Count 272 MPV 10.0 Immature Gran % (Auto) 0.3 Neut % (Auto) 55 Lymph % (Auto) 36 [place] % (Auto) 7 Eos % (Auto) 1 Baso % (Auto) 1 Nucleat RBC Rel Count 0.0 Immature Gran # (Auto) 0.0 Neut # (Auto) 3.5 Lymph # (Auto) 2.3 [place] # (Auto) 0.5 Eos # (Auto) 0.1 Baso # (Auto) 0.1 Sodium 139 Potassium 4.2 Chloride 107 Carbon Dioxide 25 Anion Gap 11.2 BUN 12 Creatinine 1.30 Estim Creat Clear Calc No Ht and/or Wt Est GFR ( Amer) >60 Est GFR (Non-Af Amer) >60 Fasting Glucose 84 Calcium 9.8 Magnesium 1.87 Total Bilirubin 0.2 AST 22 ALT 26 Alkaline Phosphatase 90 Troponin I < 0.020 B-Natriuretic Peptide Total Protein 7.0 Albumin 4.3 TSH 1.36 Urine Color Urine Clarity Urine pH Ur Specific [place] Urine Protein Urine Glucose (UA) Urine Ketones Urine Blood Urine Nitrate Urine Bilirubin Urine Urobilinogen Ur Leukocyte Esterase Urine RBC Urine WBC Ur Squamous Epith Cells Amorphous Sediment Urine Mucus - Subjective Narrative ROS: Review of Systems completed. Review of Systems completed. - Review of Systems Constitutional: Reports: weakness, fatigue. Denies: chills, fever Respiratory: Reports: shortness of breath. Denies: cough Cardiovascular: Reports: chest pain, palpitations. Denies: edema, syncope Gastrointestinal: Denies: abdominal pain, nausea, vomiting Genitourinary Exam M/F: Denies: urgency, dysuria, frequency Neurological: Reports: lightheadedness. Denies: headache, weakness, numbness, paresthesias Endocrine: Reports: excessive sweating - Vital Signs Vitals: Vital Signs (last response) Temperature 36.3 C L 12/24/17 14:00 Pulse/Heart Rate 57 L 12/24/17 14:00 Respiratory Rate 18 12/24/17 14:00 Blood Pressure 124/77 12/24/17 14:00 O2 Sat by Pulse Oximetry 99 12/24/17 14:00 Vital Signs (last response) Temperature 36.8 C 12/21/17 19:24 Pulse/Heart Rate 68 12/21/17 19:24 Respiratory Rate 20 12/21/17 19:24 Blood Pressure 127/78 12/21/17 19:24 O2 Sat by Pulse Oximetry 99 12/21/17 19:24 - Physical Exam Constitutional: Positive: alert, in no apparent distress, obese HEENT: Positive: EOMI Neck: Positive: Supple, no JVD Respiratory: Negative: rhonchi, tachypnea, wheezes, stridor, accessory muscle use Cardiovascular: Positive: regular rate, normal rhythm, +S1, +S2, other (Chest pain is reproducible on exam). Negative: rubs, gallop, clicks, +S3, +S4 GI/Abdominal: Positive: soft, nontender, nondistended, normal bowel sounds. Negative: guarding, rebound, rigidity : Positive: deferred Extremities: Positive: no edema, no cellulitis, bilateral pulses positive. Negative: calf tenderness Neurological: Positive: alert, oriented X3 Integumentary: Positive: warm, dry, intact, other Psychiatric: Positive: normal affect, normal mood - Assessment and Plan (1) Atypical chest pain Status: Acute (2) Pulmonary embolus Status: Suspected QualifierTitle: Pulmonary embolism type: other (3) Abnormal computed tomography angiography (CTA) Status: Acute (4) History of DVT of lower extremity Status: Chronic (5) Bipolar disease, chronic Status: Chronic (6) Sleep apnea Status: Chronic QualifierTitle: Sleep apnea type: obstructive Qualified Code(s): G47.33 - Obstructive sleep apnea (adult) (pediatric) (7) Paraesophageal hernia Status: Chronic (8) DVT prophylaxis Status: Acute - Comments Impression Comments: 12/21/17 21:14 This is a 32 y/o male with a PMH significant for 2x LLE DVT, TIFFANIE on CPAP, and bipolar disorder who presents to [facility] ED from home with 1-week of substernal chest pain. # Atypical chest pain # LLL pulmonary embolism, suspected # Nodular opacities in the RUL # History of LLE DVT x 2 # Bipolar disorder # Obstructive sleep apnea # Paraesophageal hernia # DVT prophylaxis Plan: - Troponin x 3 negative. EKGs reviewed and showed NSR with no acute ST changes. No objective evidence of acute coronary syndrome. Chest pain is also reproducible on physical exam. Likely musculoskeletal related. However, patient is at high risk for developing cardiovascular events given multiple risk factors (daily smoker, obesity, and positive family history), he will need an outpatient stress test at some point. Defer to day team for cardiology consult. - Ultram 50mg PO q4h PRN. - Appears to be unprovoked given his history. Hemodynamically stable. Sating well on room air. CTA showed findings suspicious for small peripheral LLL pulmonary embolism. LLL venous duplex negative for DVT. - Started on therapeutic lovenox 1mg/kg BID. He might be able to switch to oral agent - Check RLL venous duplex. - Check ECHO to evaluate for R heart strain. - Patient had 2 x LLE DVT in the past and given his age, suspect there is an underlying hypercoagulable disorder. Check JOSEY. He likely needs a hypercoagulable work up once all acute issues are resolved. Defer to day team for heme/onc consult to establish outpatient f/u. - CTA showed a few nodular opacities in the R upper lobe up to 7mm where follow up is recommended. Along with heavy smoking history, patient will need a PFT to evaluate for COPD. Defer to day team for pulm consult to establish care. - Resumed home dosed tripleptal and quetiapine. - CPAP qhs, use home settings. - CTA also showed moderate to large paraesophageal hiatal hernia worsened since previous. Patient's asymptomatic. Recommend outpatient follow up with GI surgeon/general surgeon. - On therapeutic lovenox. Dispo: Patient was essentially admitted suspected PE in the LLL. Appears to be unprovoked. On therapeutic lovenox. Hemodynamically stable. Likely switch to NOAC tomorrow. Anticipate discharge in 1-2 days. Resident Supervisory Note - Certification As noted above, I certify and agree with: This patient's need for inpatient care based on above documentation, The order to admit as inpatient, The anticipated length of stay, Diagnosis, Problem List, Plan of Care - Attestation Attestation: Saw Patient Agree Additionally: I have seen and evaluated this patient, I personally obtained the antonio and critical portions of the H P exam, I was present for antonio critical portions performed by the resident, I reviewed resident's documentation discussed Pt with resident, I agree with resident's medical decision making as documented in note Patient evaluation date: 12/21/17 Review and update is required if H P is greater than twenty-four hours. The patient was examined, the H P was reviewed. __ No Changes __ Changes noted below: Date/Time Attending Physician Normal [facility] Magnesium $$on 12-21-2017 Magnesium mass conc 1.87 mg/dL Normal 1.60-2.40 [facility] Comment on above: Performed By: #### C BC, PTINR, CMP12, MG, TROP, TSH, UR, BNP ####[address] [address] Protime INRon 12-21-2017 INR Coag RelTime (PPP) 1.0 {INR} Normal 0.9-1.1 [facility] Comment on above: Result Comment: Kimberly tracy note new reference range OF 08/13/2017 Performed By: #### C BC, PTINR, CMP12, MG, TROP, TSH, UR, BNP ####[address] [address] Protein mass conc 11.5 sec Normal 9.8-12.7 [facility] Comment on above: Result Comment: Kimberly tracy note new reference range OF 08/13/2017 Performed By: #### C BC, PTINR, CMP12, MG, TROP, TSH, UR, BNP ####[address] [address] Thyroid Stimulating Hormoneo n 12-21-2017 Thyrotropin Qn 1.36 m[IU]/L Normal 0.44-3.98 [facility] Comment on above: Performed By: #### C BC, PTINR, CMP12, MG, TROP, TSH, UR, BNP ####[address] [address] Troponin Ion 12-21-2017 Troponin I.cardiac mass conc ng/mL Normal 0.00-0.040 [facility] Comment on above: Performed By: #### C BC, PTINR, CMP12, MG, TROP, TSH, UR, BNP ####[address] [address] Troponin I.cardiac mass conc ng/mL Normal 0.00-0.040 [facility] Comment on above: Performed By: #### C BC, PTINR, CMP12, MG, TROP, TSH, UR, BNP ####[address] [address] Urinalysison 12-21-2017 Amorphous Sediment, Urine Occasional Normal [facility] Comment on above: Performed By: #### C BC, PTINR, CMP12, MG, TROP, TSH, UR, BNP ####[address] [address] Bilirubin, Urine Negative Normal Negative [facility] Comment on above: Performed By: #### C BC, PTINR, CMP12, MG, TROP, TSH, UR, BNP ####[address] [address] Clarity Nom (U) Cloudy Normal [facility] Comment on above: Performed By: #### C BC, PTINR, CMP12, MG, TROP, TSH, UR, BNP ####[address] [address] Color Nom (U) Yellow Normal [facility] Comment on above: Performed By: #### C BC, PTINR, CMP12, MG, TROP, TSH, UR, BNP ####[address] [address] Epithelial Cells Rare Normal 0-5 [facility] Comment on above: Performed By: #### C BC, PTINR, CMP12, MG, TROP, TSH, UR, BNP ####[address] [address] Glucose Ql (U) Negative Normal Negative [facility] Comment on above: Performed By: #### C BC, PTINR, CMP12, MG, TROP, TSH, UR, BNP ####[address] [address] Hemoglobin Test strip Ql (U) Negative Normal Negative [facility] Comment on above: Performed By: #### C BC, PTINR, CMP12, MG, TROP, TSH, UR, BNP ####[address] [address] Ketones Ql (U) Negative Normal Negative [facility] Comment on above: Performed By: #### C BC, PTINR, CMP12, MG, TROP, TSH, UR, BNP ####[address] [address] Leukocyte esterase Test strip Ql (U) 1+ Abnormal Negative [facility] Comment on above: Performed By: #### C BC, PTINR, CMP12, MG, TROP, TSH, UR, BNP ####[address] [address] Mucus, Urine Rare Normal [facility] Comment on above: Performed By: #### C BC, PTINR, CMP12, MG, TROP, TSH, UR, BNP ####[address] [address] Nitrates, Urine Negative Normal Negative [facility] Comment on above: Performed By: #### C BC, PTINR, CMP12, MG, TROP, TSH, UR, BNP ####[address] [address] pH Test strip (U) 6.0 [pH] Normal 5.0-9.0 [facility] Comment on above: Performed By: #### C BC, PTINR, CMP12, MG, TROP, TSH, UR, BNP ####[place] [id number] Protein, Urine Negative Normal Negative [facility] Comment on above: Performed By: #### C BC, PTINR, CMP12, MG, TROP, TSH, UR, BNP ####[address] [address] RBC LM.HPF #/area (Urine sed) 1-3 Normal 0 [facility] Comment on above: Performed By: #### C BC, PTINR, CMP12, MG, TROP, TSH, UR, BNP ####[facility] [id number] [place] [address] Specific [place], Urine 1.024 Normal 1.000-1.03 0 [facility] Comment on above: Performed By: #### C BC, PTINR, CMP12, MG, TROP, TSH, UR, BNP ####[address] [address] Urobilinogen, Urine Normal Normal <2.0 [facility] Comment on above: Performed By: #### C BC, PTINR, CMP12, MG, TROP, TSH, UR, BNP ####[address] [address] WBC LM.HPF #/area (Urine sed) 5-10 Abnormal 0-2 [facility] Comment on above: Performed By: #### C BC, PTINR, CMP12, MG, TROP, TSH, UR, BNP ####[address] [address] Venous Dupl Extremity Lower- [place] 12-21-2017 Venous Dupl Extremity Lower-Lt [facility] Patient: VINNIE OLIVAREZ [address] [facility] MR#: [id number] [place], [place] [address] : [address] Pal Faye MD Dept: Diagnostic Imaging Loc: 1EDA DI REPORT Service Dt:12/21/17 Report#: [id number] Adm Dt: 12/21/17 Dis Dt: Comments: STUDY: US Venous Dupl Extremity Lower-Lt; 12/21/2017 4:45 pm INDICATION: leg pain, history of remote DVT. COMPARISON: None. ACCESSION NUMBER(S): [id number] ORDERING CLINICIAN: Pal Faye TECHNIQUE: Vascular ultrasound of the left lower extremity was performed. Real time compression views as well as [place] scale, color Doppler and spectral Doppler waveform analysis was performed. FINDINGS: Evaluation of the visualized portions of the left common femoral vein, proximal, mid, and distal femoral vein, and popliteal vein were performed. Evaluation of the visualized portions of the calf veins were also performed. In addition, evaluation of the contralateral common femoral vein was performed. Limitations: Suboptimal visualization of the calf veins. Left lower extremity veins show normal compressibility, phasic variation to respiration, and positive augmentation to distal compression, suggesting no evidence of any deep venous thrombosis. Contralateral common femoral vein and great saphenous vein are patent. IMPRESSION: No evidence of any deep venous thrombosis involving the left lower extremity veins. Dictated by: Austin Acosta Electronically Signed by: Austin Acosta 12/21/2017 5:02 PM Normal [facility] Vital Signs Date Time Vital Sign Value Performing Clinician Tanikai litguillaume 01-04-2025 22:31-0400 Body temperature 96.4 [degF] No Primary Care Physician [place] 01-04-2025 22:31-0400 Diastolic blood pressure 89 mm[Hg] No Primary Care Physician [place] 01-04-2025 22:31-0400 Heart rate 61 /min No Primary Care Physician [place] 01-04-2025 22:31-0400 Respiratory rate 16 /min No Primary Care Physician [place] 01-04-2025 22:31-0400 SaO2% (BldA) [Mass fraction] 99 % No Primary Care Physician [place] 01-04-2025 22:31-0400 Systolic blood pressure 148 mm[Hg] No Primary Care Physician [place] 01-04-2025 19:32-0400 Body height 180.34 cm No Primary Care Physician [place] 01-04-2025 19:32-0400 Body mass index (BMI) [Ratio] 31.6 kg/m2 No Primary Care Physician [place] 01-04-2025 19:32-0400 Body weight 102.87 kg No Primary Care Physician [place] 12-03-2023 13:00-0400 Diastolic blood pressure 76 mm[Hg] Ruby Golias PT Work Phone: [facility] 12-03-2023 13:00-0400 Heart rate 57 /min Ruby Golias PT Work Phone: [facility] 12-03-2023 13:00-0400 Systolic blood pressure 119 mm[Hg] Ruby Golias PT Work Phone: [facility] 12-03-2023 06:55-0400 Body mass index (BMI) [Ratio] 25.24 kg/m2 Joy Mckeon PA-C Work Phone: [facility] 12-03-2023 06:55-0400 Body weight 82.1 kg Joy Mckeon PA-C Work Phone: [facility] 12-03-2023 06:55-0400 Diastolic blood pressure 74 mm[Hg] Joy Mckeon PA-C Work Phone: [facility] 12-03-2023 06:55-0400 Heart rate 55 /min Joy Mckeon PA-C Work Phone: [facility] 12-03-2023 06:55-0400 Respiratory rate 18 /min Joy Mckeon PA-C Work Phone: [facility] 12-03-2023 06:55-0400 SaO2% (BldA) [Mass fraction] 100 % Joy Mckeon PA-C Work Phone: [facility] 12-03-2023 06:55-0400 Systolic blood pressure 114 mm[Hg] Joy Mckeon PA-C Work Phone: [facility] 11-24-2023 18:46-0400 Body temperature 98.6 [degF] Dr. Radha Fierro Work Phone: [place] 11-24-2023 18:46-0400 Diastolic blood pressure 72 mm[Hg] Dr. Radha Fierro Work Phone: [place] 11-24-2023 18:46-0400 Heart rate 65 /min Dr. Radha Fierro Work Phone: [place] 11-24-2023 18:46-0400 Respiratory rate 16 /min Dr. Radha Fierro Work Phone: [place] 11-24-2023 18:46-0400 SaO2% (BldA) [Mass fraction] 99 % Dr. Radha Fierro Work Phone: [place] 11-24-2023 18:46-0400 Systolic blood pressure 125 mm[Hg] Dr. Radha Fierro Work Phone: [place] 11-24-2023 15:06-0400 Body height 180.[address] Radha Fierro Work Phone: [place] 11-24-2023 15:06-0400 Body mass index (BMI) [Ratio] 25.3 kg/m2 Dr. Radha Fierro Work Phone: [place] 11-24-2023 15:06-0400 Body weight 82.[address] Radha Fierro Work Phone: [place] 11-19-2023 13:20-0400 Body height 180.3 cm Lizett Chapman MD Work Phone: [facility] 11-19-2023 13:20-0400 Body mass index (BMI) [Ratio] 25.8 kg/m2 Lizett Chapman MD Work Phone: [facility] 11-19-2023 13:20-0400 Body temperature 97.5 [degF] Lizett Chapman MD Work Phone: [facility] 11-19-2023 13:20-0400 Body weight 83.92 kg Lizett Chapman MD Work Phone: [facility] 11-19-2023 13:20-0400 Diastolic blood pressure 85 mm[Hg] Lizett Chapman MD Work Phone: [facility] 11-19-2023 13:20-0400 Heart rate 50 /min Lizett Chapman MD Work Phone: [facility] 11-19-2023 13:20-0400 Respiratory rate 18 /min Lizett Chapman MD Work Phone: [facility] 11-19-2023 13:20-0400 SaO2% (BldA) [Mass fraction] 100 % Lizett Chapman MD Work Phone: [facility] 11-19-2023 13:20-0400 Systolic blood pressure 123 mm[Hg] Lizett Chapman MD Work Phone: [facility] 10-17-2023 10:50-0400 Body height 180.3 cm Pam Schroeder MD Work Phone: [facility] 10-17-2023 10:50-0400 Body weight 85.82 kg Pam Schroeder MD Work Phone: [facility] 10-17-2023 10:50-0400 Diastolic blood pressure 68 mm[Hg] Pam Schroeder MD Work Phone: [facility] 10-17-2023 10:50-0400 Heart rate 56 /min Pam Schroeder MD Work Phone: [facility] 10-17-2023 10:50-0400 Systolic blood pressure 110 mm[Hg] Pam Schroeder MD Work Phone: [facility] 09-12-2023 08:35-0500 Body mass index (BMI) [Ratio] 27.8 kg/m2 Dr. Radha Fierro Work Phone: [place] 09-12-2023 08:35-0500 Body temperature 98.2 [degF] Dr. Radha Fierro Work Phone: [place] 09-12-2023 08:35-0500 Body weight 90.[address] Radha Fierro Work Phone: [place] 09-12-2023 08:35-0500 Diastolic blood pressure 90 mm[Hg] Dr. Radha Fierro Work Phone: [place] 09-12-2023 08:35-0500 Heart rate 77 /min Dr. Radha Fierro Work Phone: [place] 09-12-2023 08:35-0500 Respiratory rate 16 /min Dr. Radha Fierro Work Phone: [place] 09-12-2023 08:35-0500 SaO2% (BldA) [Mass fraction] 98 % Dr. Radha Fierro Work Phone: [place] 09-12-2023 08:35-0500 Systolic blood pressure 144 mm[Hg] Dr. Radha Fierro Work Phone: [place] 09-09-2023 19:43-0500 Body temperature 98 [degF] Dr. Radha Fierro Work Phone: [place] 09-09-2023 19:43-0500 Diastolic blood pressure 93 mm[Hg] Dr. Radha Fierro Work Phone: [place] 09-09-2023 19:43-0500 Heart rate 50 /min Dr. Radha Fierro Work Phone: [place] 09-09-2023 19:43-0500 Respiratory rate 16 /min Dr. Radha Fierro Work Phone: [place] 09-09-2023 19:43-0500 SaO2% (BldA) [Mass fraction] 96 % Dr. Radha Fierro Work Phone: [place] 09-09-2023 19:43-0500 Systolic blood pressure 147 mm[Hg] Dr. Radha Fierro Work Phone: [place] 09-09-2023 14:59-0500 Body mass index (BMI) [Ratio] 28 kg/m2 Dr. Radha Fierro Work Phone: [place] 09-09-2023 14:59-0500 Body weight 91.[address] Radha Fierro Work Phone: [place] 08-31-2023 22:45-0500 Body temperature 96.9 [degF] [facility] 08-31-2023 22:45-0500 Diastolic blood pressure 103 mm[Hg] [place] 08-31-2023 22:45-0500 Heart rate 50 /min [facility] 08-31-2023 22:45-0500 Respiratory rate 16 /min [facility] 08-31-2023 22:45-0500 SaO2% (BldA) [Mass fraction] 100 % [place] 08-31-2023 22:45-0500 Systolic blood pressure 155 mm[Hg] [place] 08-31-2023 19:32-0500 Body height 180.34 cm [facility] 07-18-2023 20:47-0500 Heart rate 59 /min [facility] 07-18-2023 20:47-0500 Respiratory rate 16 /min [facility] 07-18-2023 20:47-0500 SaO2% (BldA) [Mass fraction] 100 % [place] 07-18-2023 17:48-0500 Body height 180.34 cm [facility] 07-18-2023 17:48-0500 Body mass index (BMI) [Ratio] 28.7 kg/m2 [place] 07-18-2023 17:48-0500 Body temperature 97.4 [degF] [facility] 07-18-2023 17:48-0500 Body weight 93.34 kg [facility] 07-18-2023 17:48-0500 Diastolic blood pressure 85 mm[Hg] [place] 07-18-2023 17:48-0500 Systolic blood pressure 129 mm[Hg] [place] 01-30-2023 11:10-0400 Body height 180.[address] Work Phone: [facility]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 PT scheduled for post op LM to PT with appointment details and to call back if he needs to change Thanks * Telephone Encounter - Jay Jay Meeks MD - 09/26/2023 1:28 PM [facility] 2[facility]3 weeks documented in this encounterK[facility]03-14-2024 Telephone encounter Note * Telephone Encounter - Jay Jay Meeks MD - 09/26/2023 1:28 PM EDT [facility]3 [facility] Work Phone: [phone] NoteED Nursing Discharge Summary Entered On: 09/25/2023 22:24 EDT Performed On: 09/25/2023 22:15 EDT by Martha Butler RN [place] Information [id number] ED IV's : [facility] ED IV Site Assessment : Yes, Completed in [facility] ED Vitals Completed : Yes ED Final Assessment Completed : Yes ED Progress Note Completed : Yes Complete all PRN/Pain response forms? : Yes ED Disassociate Patient from Monitor : Yes Updated Depart Time : Yes Mode of Discharge : Stretcher Discharge Transportation : Ground ambulance ED Belongings sent w patient [id number] : Yes Valuables Complete : No Martha Butler RN - 09/25/2023 22:24 EDT Education Instructions given to : Patient TeachBack Methodology : Explanation Barriers to Learning : None evident Martha Butler RN - 09/25/2023 22:24 EDT Post-Hospital Education Adult Grid Diagnostic Results : Verbalizes understanding Disease Process : Verbalizes understanding Equipment/Devices : Verbalizes understanding Plan of Care : Verbalizes understanding Martha Butler RN - 09/25/2023 22:24 EDT ED Assistance Summary Assistance Given? : No Martha Butler RN - 09/25/2023 22:24 EDT [facility]02-17-2024 Discharge summary Author Shakeel Castro [place] August 31, 2023 10:36pm Note Date/Time August 31, 2023 7:41pm [facility] Medical Records Department [address] [place] [address] Emergency Department Summary 08/31/23 MR#: [id number] Acct: [id number] Name: VINNIE OLIVAREZ Rep #:[id number] 3 : 1985 38 From: Shakeel Hough PCP: EILEEN MONROE Status:REG ER Location: ED HPI History of Present Illness [facility]: [facility] History ADHD Adrenal benign tumor Anemia Benign essential HTN Bipolar disorder Chronic pain Degenerative disc disease GERD (gastroesophageal reflux disease) Hiatal hernia History of DVT (deep vein thrombosis) Hypertension Kidney stones Migraines Obstructive sleep apnea Smoker Substance abuse Home Medications gabapentin 300 mg capsule 300 mg PO BID PRN mood 04/08/20 [History Last Taken Unknown] gabapentin 300 mg capsule 300 mg PO QHS mood 04/08/20 [History Last Taken 11/24/20] calcium carb-ergocalciferol (vit D2) 600 mg calcium-200 unit tablet 1 tab PO DAILY 11/10/22 [History Last Taken Unknown] diphenhydramine HCl 25 mg capsule (Benadryl) 25 mg PO QHS PRN Sleep 11/10/22 [History Last Taken Unknown] enoxaparin 40 mg/0.4 mL subcutaneous syringe (Lovenox) 40 mg subcut Q12H 11/10/22 [History Last Taken Unknown] fluoxetine 40 mg capsule 40 mg PO DAILY 11/10/22 [History Last Taken Unknown] oxcarbazepine 600 mg tablet (Trileptal) 600 mg PO BID 11/10/22 [History Last Taken Unknown] quetiapine 400 mg tablet,extended release 24 hr 200 mg PO BID 11/10/22 [History Last Taken Unknown] sucralfate 100 mg/mL oral suspension (Carafate) 10 ml PO .qid #420 mL 11/10/22 [Rx Last Taken Unknown] tramadol 50 mg tablet 50 mg PO Q8 PRN Pain 11/10/22 [History Last Taken Unknown] ursodiol 300 mg capsule 300 mg PO BID 11/10/22 [History Last Taken Unknown] acetaminophen 500 mg tablet 500 mg PRN pain 11/11/22 [History Last Taken Unknown] hydroxyzine pamoate 25 mg capsule 50 mg (2 x 25 mg) PO TID PRN PRN Anxiety #20 CAPSULES 03/12/23 [Rx Last Taken Unknown] Allergy/AdvReac Type Severity Reaction Status Date / Time cinnamon Allergy Anaphylaxis Verified 08/31/23 19:36 codeine Allergy PT UNSURE Verified 08/31/23 19:36 OF REACTION Surgical History H/O hernia repair H/O lithotripsy History of colonoscopy History of esophagogastroduodenoscopy (EGD) History of gastric bypass History of total adrenalectomy Hx of tonsillectomy Social History Smoking Status: Former smoker substance use type: does not use EXAM Physical Exam Const Vital Signs: 08/31/23 19:32 08/31/23 20:18 Temperature 96.9 F L 96.9 F L Temperature Source Temporal Temporal Pulse Rate 63 63 Respiratory Rate 15 15 Blood Pressure 119/94 H 119/94 H Blood Pressure Mean 102 102 Pulse Ox 100 100 Oxygen Delivery Method Room Air Room Air MDM MDM MDM Narrative Medical decision making narrative: HISTORY OF PRESENT ILLNESS: 38-year-old male presents with a chief concern of intermittent left-sided flank pain that is exacerbated by speaking loudly, moving or sitting. He denies any urinary issues. He further states no history of kidney stones with no history of gastric bypass. Denies any hematuria. Denies any diarrhea constipation. Denies any trauma. REVIEW OF SYSTEMS: Pertinent positives: Flank pain, testicular pain Pertinent negatives: Vomiting, fever, urinary complaints, changes to bowel habits PHYSICAL EXAM: Nursing triage notes reviewed, Vital signs reviewed Constitutional: please see mdm HENT: MMM Eyes: Pupils equal round and reactive to light, Extraocular muscles intact Neck: No stridor, no JVD, full neck ROM Lungs: Clear to auscultation, No wheezing or rales. No increased work of breathing, no conversational dyspnea, no accessory muscle use, no nasal flaring. No respiratory distress noted Heart: Regular rate and rhythm, No murmurs, No rubs and No gallops, 2+ distal pulses (radial, femoral, posterior tibial) in all extremities Abdomen: Soft, left lower quadrant TTP, free reducible left inguinal hernia noted, no rigidity, rebound or guarding, no obvious peritoneal signs, no palpable pulsatile abdominal masses, no auscultated abdominal bruit : No CVAT Extremities: No edema Neuro: No focal neurological deficits, cranial nerves II through XII intact, 5/5strength in all extremities. Intact sensation to light touch in all extremities,2+ reflexes bilateral patella tendons. Normal gait. No ataxia. Skin: No rash or lesions noted MEDICAL DECISION MAKING: Chief Complaint: Flank pain External records reviewed: Imaging studies reviewed: CT scan of the abdomen pelvis from October 2022 shows no hydronephrosis, no nephrolithiasis Factors affecting care: HTN Social determinants of health: none History obtained from others: none Consults: none MDM Narrative: Patient was hemodynamically stable, afebrile, nontoxic-appearing. Exam with reproducible left inguinal hernia. I considered the following differential diagnosis: Hernia, nephrolithiasis, testicular torsion, epididymitis, musculoskeletal injury I obtained a broad lab and imaging workup to further elucidate the etiology patient complaints. I treated patient symptomatic with IV morphine, fluids and Zofran. I obtained a broad lab and imaging workup to further elucidate etiology patient complaints. ALL IMAGES (IF OBTAINED) HAVE BEEN PERSONALLY REVIEWED AND INTERPRETED BY MYSELF. CBC without leukocytosis, noted mild anemia but no thrombocytopenia CMP without evidence of acute kidney injury, significant electrolyte abnormality, anion gap, no evidence hepatobiliary pathology. Lactate is wnl indicating no end-organ hypoperfusion and/or hypoxia. Urinalysis without evidence of UTI, no hematuria and mild ketonuria, no evidenceof pyelonephritis Lipase elevated but not consistent with acute pancreatitis Testicular ultrasound shows normal bilateral testicles CT scan of the abdomen pelvis shows no evidence of intra-abdominal pathology, nonephrolithiasis or incarcerated hernia Synthesis the patient history physical exam labs and images suggest no acute life-limiting etiology. My initial exam that I felt a left inguinal hernia thatwas freely reducible. Given this I will give the patient general surgery follow-up. Tylenol ibuprofen pr and instructions were given. Strict return precautions were discussed The patient and/or family, caregivers express understanding. The patient and/orfamily, caregivers agrees with the plan. Shared decision making: I will have a discussion with the patient and or visitors regarding risk/benefits of further testing or admission. They will be made aware of of the risk/benefits inherent in this decision they will be given the opportunity to voice understanding. Total critical care time today provided was at least 0 minutes. This excludes separately billable procedures. Critical care time (if documented) is secondary to the patient having high probability of clinically significant/life threatening deterioration in the patient's condition which required my urgent intervention. Impression: 1. Left inguinal hernia 2. Elevated lipase 3. Hematuria Dispo: Discharge This note was generated with [employer] dictation software. It may contain incorrectwords, spelling, and punctuation that were not noted in review of the chart prior to signing. Lab Data Labs: Laboratory Results - last 24 hr 08/31/23 08/31/23 20:17 20:30 WBC 6.9 RBC 4.43 L Hgb 12.5 L Hct 37.7 L MCV 85.1 MCH 28.2 MCHC 33.2 RDW Std Deviation 38.3 RDW Coeff of Michael 12.4 Plt Count 204 MPV 9.8 Immature Gran % (Auto) 0.300 Neut % (Auto) 52.1 Lymph % (Auto) 35.8 [place] % (Auto) 7.8 Eos % (Auto) 3.0 Baso % (Auto) 1.0 Absolute Neuts (auto) 3.6 Absolute Lymphs (auto) 2.47 Nucleated RBC % 0 Sodium 141 Potassium 4.1 Chloride 110 H Carbon Dioxide 29.0 Anion Gap 2 L BUN 12 Creatinine 0.87 Est GFR (MDRD) Af Amer 126 Est GFR (MDRD) Non-Af 104 BUN/Creatinine Ratio 13.8 Glucose 89 Lactic Acid 0.8 Calcium 9.3 Total Bilirubin 0.40 AST 17 ALT 13 L Alkaline Phosphatase 102 Total Protein 6.8 Albumin 3.9 Globulin 2.9 Albumin/Globulin Ratio 1.3 Lipase 112 H Urine Color Yellow Urine Clarity Sl. Cloudy Urine pH 6.0 Ur Specific [place] 1.020 Urine Protein 30 H Urine Glucose (UA) Normal Urine Ketones 5 H Urine Occult Blood 250 H Urine Nitrite Negative Urine Bilirubin Negative Urine Urobilinogen 4 H Ur Leukocyte Esterase 25 H Radiography Diagnostic Testing: Clinical Impression(s) from Imaging Studies Testicular Ultrasound 08/31/23 19:57 IMPRESSION: Normal bilateral testicles. Electronically Signed: Lj Bean MD at 21:05 EST , Abdomen/Pelvis CT 08/31/23 19:59 IMPRESSION: No acute abnormality. Electronically Signed: Lj Bean MD at 21:43 EST , Discharge Plan Triage Chief Complaint: Flank Pain ED Provider: Shakeel Castro Dx/Rx/DC Orders Prescriptions: No Action gabapentin 300 MG capsule 300 mg PO QHS gabapentin 300 MG capsule 300 mg PO BID PRN (Reason: mood) enoxaparin [Lovenox] 40 mg/0.4 mL Syringe 40 mg SUBCUT Q12H tramadol 50 mg tablet 50 mg PO Q8 PRN (Reason: Pain) oxcarbazepine [Trileptal] 600 mg Tablet 600 mg PO BID Patient Comments: 300mg in the AM and 900mg at HS quetiapine 400 mg tablet extended release 24 hr 200 mg PO BID Patient Comments: TAKE 1 TABLET BY MOUTH AT BEDTIME fluoxetine 40 mg capsule 40 mg PO DAILY ursodiol [Actigall] 300 mg Capsule 300 mg PO BID diphenhydramine HCl [Benadryl] 25 mg Capsule 25 mg PO QHS PRN (Reason: Sleep) Calcium + Vitamin D 600 mg calcium- 200 unit Tablet 1 tab PO DAILY sucralfate [Carafate] 100 mg/mL suspension 10 ml PO .qid Qty: 420 0RF acetaminophen 500 mg tablet 500 mg PRN (Reason: pain) Patient Comments: TAKE 2 TABLETS BY MOUTH EVERY 6 HOURS FOR 7 DAYS . START AFTER SURGERY hydroxyzine pamoate [hydroxyzine pamoate] 25 mg capsule 50 mg PO TID PRN PRN (Reason: Anxiety) Qty: 20 0RF Primary Care Provider: EILEEN MONROE Referrals: EILEEN MONROE [Other] What to do if you have Problems For any increased pain, shortness of breath, bleeding, nausea or vomiting, chest pain, or any unexpected problems, contact your Primary Care Provider. Call [facility] ([phone]) or report to the closest Emergency Room. Call 911 if necessary. 08/31/232235 <Electronically signed by Shakeel Castro DO> Cosigner Signature (if applicable): CC: EILEEN VOGEL ~ Signed [place] Work Phone: 1(669) 781-720201-04-2024 Discharge summary Author Geo Robertson [place] July 18, 2023 8:46pm Note Date/Time July 18, 2023 7: 39pm [facility] Medical Records Department [address] [place] [address] Emergency Department Summary 07/18/23 MR#: [id number] Acct: [id number] Name: VINNIE OLIVAREZ Rep #:[id number] : 1985 37 From: Geo Robertson DO PCP: EILEEN MONROE Status:REG ER Location: ED HPI History of Present Illness Chief Complaint: Other, Pain/Inj Narrative Narrative: -year-old male presenting with acute onset left calf pain. Started when he was at work today.'s progressively gotten worse. Patient states that 2007 he had a DVT in the left lower extremity was admitted to [facility] on a heparin drip and bridged to Coumadin. He states he was on Coumadin as an outpatient at that time. Patient states that a year ago he was diagnosed with a blood clot and is unsure if it was superficial or. He states he was on a blood thinner forabout 3 weeks and had not been on anything since. Denies chest pain or shortness of breath. He states he has a genetic predisposition to blood clots but does not know what that is. He states that his mother had blood clots and his father had blood clots. Patient also states that his blood clots were caused by stress. Patient states that it was described to him as when he gets stressed out and the blood starts to flow to his leg it starts to insult the vein and then the clot forms and will go away. [facility] Medical History ADHD Adrenal benign tumor Anemia Benign essential HTN Bipolar disorder Chronic pain Degenerative disc disease GERD (gastroesophageal reflux disease) Hiatal hernia History of DVT (deep vein thrombosis) Hypertension Kidney stones Migraines Obstructive sleep apnea Smoker Substance abuse Home Medications gabapentin 300 mg capsule 300 mg PO BID PRN mood 04/08/20 [History Last Taken Unknown] gabapentin 300 mg capsule 300 mg PO QHS mood 04/08/20 [History Last Taken 11/24/20] calcium carb-ergocalciferol (vit D2) 600 mg calcium-200 unit tablet 1 tab PO DAILY 11/10/22 [History Last Taken Unknown] diphenhydramine HCl 25 mg capsule (Benadryl) 25 mg PO QHS PRN Sleep 11/10/22 [History Last Taken Unknown] enoxaparin 40 mg/0.4 mL subcutaneous syringe (Lovenox) 40 mg subcut Q12H 11/10/22 [History Last Taken Unknown] fluoxetine 40 mg capsule 40 mg PO DAILY 11/10/22 [History Last Taken Unknown] oxcarbazepine 600 mg tablet (Trileptal) 600 mg PO BID 11/10/22 [History Last Taken Unknown] quetiapine 400 mg tablet,extended release 24 hr 200 mg PO BID 11/10/22 [History Last Taken Unknown] sucralfate 100 mg/mL oral suspension (Carafate) 10 ml PO .qid #420 mL 11/10/22 [Rx Last Taken Unknown] tramadol 50 mg tablet 50 mg PO Q8 PRN Pain 11/10/22 [History Last Taken Unknown] ursodiol 300 mg capsule 300 mg PO BID 11/10/22 [History Last Taken Unknown] acetaminophen 500 mg tablet 500 mg PRN pain 11/11/22 [History Last Taken Unknown] hydroxyzine pamoate 25 mg capsule 50 mg (2 x 25 mg) PO TID PRN PRN Anxiety #20 CAPSULES 03/12/23 [Rx Last Taken Unknown] Allergy/AdvReac Type Severity Reaction Status Date / Time cinnamon Allergy Anaphylaxis Verified 07/18/23 17:48 codeine Allergy PT UNSURE Verified 07/18/23 17:48 OF REACTION Surgical History H/O hernia repair H/O lithotripsy History of colonoscopy History of esophagogastroduodenoscopy (EGD) History of gastric bypass History of total adrenalectomy Hx of tonsillectomy Social History Smoking Status: Former smoker substance use type: does not use ROS ROS ED Constitutional Constitutional ED: Denies chills, fever(s) or sweats Eyes Eyes: Denies blurry vision or change in vision ENT ENT ED: Denies ear pain or sore throat Cardiovascular Cardiovascular: Denies chest pain, palpitations or racing heartbeat Respiratory/Chest Respiratory/Chest: Denies cough, dyspnea or sputum Gastrointestinal Gastrointestinal: Denies abdominal pain, constipation, diarrhea, nausea or vomiting Genitourinary Genitourinary ED: Denies dysuria, hematuria or urinary frequency Musculoskeletal Musculoskeletal: Reports other Details: Left calf pain ; Denies arthralgias, myalgias or neck pain Integumentary Denies abscess, Abrasions or rash Neurologic Neurologic: Denies headache(s), paresthesias or weakness Psychiatric Psychiatric: Denies anxiety, depression, suicidal ideation or suicidal thoughts Endocrine Endocrinology: Denies polydipsia or polyuria EXAM Physical Exam Const Vital Signs: 07/18/23 17:48 07/18/23 18:02 Temperature 97.4 F L Temperature Source Temporal Pulse Rate 58 L Respiratory Rate 18 Respiratory Effort Normal Non-Labored Blood Pressure 129/85 H Blood Pressure Mean 99 Pulse Ox 100 Oxygen Delivery Method Room Air Positive well nourished General Appearance ED: NAD HEENT Reports moist mucous membranes normocephalic and atraumatic Chest Wall inspection of chest normal Resp normal respiratory effort and no retractions Cardio regular rate Rate: bradycardia Extremity Extremity Narrative: Palpation mid left calf. No swelling, discoloration, redness. Neurovascularly intact Neuro oriented x3 Sensorium / Orientation: alert Motor Exam: strength 5/5 throughout Psych mental status grossly normal Skin no wounds MDM MDM MDM Narrative Medical decision making narrative: Patient presenting with left calf pain. Differential clues DVT, muscle strain. Patient will have duplex of the lower extremity. Ultrasound left lower extremity is negative. Patient counseled on findings. Discharged home in stable condition. Impression: 1. Left calf pain 2. History of DVT Radiography Diagnostic Testing: Clinical Impression(s) from Imaging Studies Venous Duplex 07/18/23 19:38 IMPRESSION: Normal left lower extremity duplex venous ultrasound. Electronically Signed: Freddy Guajardo DO at 20:30 EST , Discharge Plan Triage Chief Complaint: Other, Pain/Inj ED Provider: Geo Robertson Dx/Rx/DC Orders Instructions: ED Leg Spasm Prescriptions: No Action gabapentin 300 MG capsule 300 mg PO QHS gabapentin 300 MG capsule 300 mg PO BID PRN (Reason: mood) enoxaparin [Lovenox] 40 mg/0.4 mL Syringe 40 mg SUBCUT Q12H tramadol 50 mg tablet 50 mg PO Q8 PRN (Reason: Pain) oxcarbazepine [Trileptal] 600 mg Tablet 600 mg PO BID Patient Comments: 300mg in the AM and 900mg at HS quetiapine 400 mg tablet extended release 24 hr 200 mg PO BID Patient Comments: TAKE 1 TABLET BY MOUTH AT BEDTIME fluoxetine 40 mg capsule 40 mg PO DAILY ursodiol [Actigall] 300 mg Capsule 300 mg PO BID diphenhydramine HCl [Benadryl] 25 mg Capsule 25 mg PO QHS PRN (Reason: Sleep) Calcium + Vitamin D 600 mg calcium- 200 unit Tablet 1 tab PO DAILY sucralfate [Carafate] 100 mg/mL suspension 10 ml PO .qid Qty: 420 0RF acetaminophen 500 mg tablet 500 mg PRN (Reason: pain) Patient Comments: TAKE 2 TABLETS BY MOUTH EVERY 6 HOURS FOR 7 DAYS . START AFTER SURGERY hydroxyzine pamoate [hydroxyzine pamoate] 25 mg capsule 50 mg PO TID PRN PRN (Reason: Anxiety) Qty: 20 0RF Primary Care Provider: EILEEN MONROE Referrals: EILEEN MONROE [Other] Disposition Disposition: Home, Self Care What to do if you have Problems For any increased pain, shortness of breath, bleeding, nausea or vomiting, chest pain, or any unexpected problems, contact your Primary Care Provider. Call [facility] ([phone]) or report to the closest Emergency Room. Call 911 if necessary. 07/18/232045 <Electronically signed by Geo Robertson DO> Cosigner Signature (if applicable): CC: EILEEN VOGEL ~ Signed [place] Work Phone: [phone] 853-352408-15-2023 NotePatient Outreach (NETNAV) VINNIE OLIVAREZ ([id number]) 1985 M Date Time Provider Department 02/26/23 KATHY MONTERROSO NETNAV During your visit today, we recorded the following information about you: Kathy Monterroso MA 02/26/2023 4:28 PM Signed POPULATION HEALTH NAVIGATION OUTREACH Action/FYI Diagnosis with HCC gap left: N40.0 - BPH (benign prostatic hyperplasia) E27.8 - Left adrenal mass (HCC) - METM Last Billed 01/31/2022 Due for: Annual Wellness Spoke with patient; he is currently looking for a new provider and will call back with the information to update his record Patient Identified by Name and : YES, via phone Outreach Outcome/Action Spoke to patient / parent / legal guardian: Patient declined Did you use a PCP flex slot to schedule this appointment? N/A Reason for Outreach HCC or suspected condition Payer: Payor: [facility] MEDICAID / Plan[facility] / Product Type: Medicaid / Care Gap Reviewed:: Annual Wellness visit Reminder: Reminder note to check Health Maintenance for items below Health Maintenance items due: HEPATITIS B(3 of 3 - 3-dose series) due on 11/18/1997 HEPATITIS C SCREENING Never done BP CONTROLLED (<130/80) Never done LIPID SCREEN due on 2019 COVID-19 VACCINE(2 - Booster for Jovan series) due on 12/16/2020 ANNUAL PCP TEAM CHRONIC DISEASE VISIT due on 04/25/2022 DEPRESSION ASSESSMENT Never done DTAP,TDAP,TD(2 - Td or Tdap) due on 09/22/2022 Navigation Signature: Kathy Monterroso MA February 26, 2023 10:49 AM Allergies As of Date: 02/26/2023 Noted Allergy Reaction CINNAMON 07/20/2013 7 - Swelling CODEINE 03/28/2006 16 - Unknown Comments: Pt does not want due to multiple family members allergic Date Reviewed: 01/30/2023 Reviewed by: Sulema Nath APRN.DYNAMITER - Fully Assessed Reason for Visit: Population Health Navigation Outreach [3910] Cmt: HCC Gaps Prescriptions as of 02/26/2023 - polyethylene glycol 3350 (MIRALAX) 17 gram/dose powder Take 17 g by mouth twice daily. Dissolve dose in 4 - 8 ounces of liquid and take as directed. - docusate sodium (COLACE) 100 mg capsule Take 1 capsule by mouth twice daily as needed for constipation. - pantoprazole DR (PROTONIX) 40 mg tablet Take 1 tablet by mouth once daily. - cholecalciferol, Vitamin D3, (VITAMIN D3) 1,250 mcg (50,000 unit) cap capsule Take 1 capsule by mouth one time a week for 12 doses. Transition to 2,000-4,000 units of Vitamin D OTC after completing 12 weeks - ursodiol (ACTIGALL) 300 mg capsule Take 1 capsule by mouth twice daily. TO START AFTER SURGERY - QUEtiapine (SEROQUEL) 200 mg tablet Take 200 mg by mouth twice daily. - FLUoxetine HCl (PROZAC) 40 mg capsule Take 1 capsule by mouth once daily. - OXcarbazepine (TRILEPTAL) 600 mg tablet 300mg qam 900mg qpm - gabapentin (NEURONTIN) 300 mg capsule Take 1 capsule by mouth three times daily for 30 days. - diphenhydrAMINE (BENADRYL) 25 mg capsule Take 25 mg by mouth at bedtime as needed. Facility-Administered Medications as of 02/26/2023 - perflutren lipid microspheres 1.3 mL in NaCl (PF) 0.9% 10 mL injection (DEFINITY) - sodium chloride 0.9 % (flush) 10 mL (BD POSIFLUSH) Problem List As Of Date 02/26/2023 Noted Resolved Back pain [M54.9] DVT (deep venous thrombosis) (HCC) [I82.409] Psychiatric disorder [F99] TIFFANIE (obstructive sleep apnea) [G47.33] Calculus of kidney [N20.0] 12/21/2019 Essential hypertension [I10] Obesity, Class III, BMI >= 40 [E66.01] 08/29/2020 Left adrenal mass (HCC) [E27.8] 08/29/2020 GERD (gastroesophageal reflux disease) [K21.9] 06/16/2021 BPH (benign prostatic hyperplasia) [N40.0] 06/16/2021 Preop pulmonary/respiratory exam [Z01.811] 08/29/2021 Abnormal stress test [R94.39] 02/07/2022 Anemia [D64.9] 10/29/2022 Preop examination [Z01.818] 10/29/2022 Class 3 severe obesity due to excess calories w*11/06/2022 Abdominal pain [R10.9] 11/11/2022 Encounter Status:Closed by KATHY MONTERROSO on 02/26/23[facility] 02-26-2023 NoteHNO ID: [id number] Author: Kathy Monterroso MA Service: ? Author Type: First Aid Trainer Type: Progress Notes Filed: 02/26/2023 4:28 PM Note Text: POPULATION HEALTH NAVIGATION OUTREACH Action/FYI Diagnosis with HCC gap left: N40.0 - BPH (benign prostatic hyperplasia) E27.8 - Left adrenal mass (HCC) - METM Last Billed 01/31/2022 Due for: Annual Wellness Spoke with patient; he is currently looking for a new provider and will call back with the information to update his record Patient Identified by Name and : YES, via phone Outreach Outcome/Action Spoke to patient / parent / legal guardian: Patient declined Did you use a PCP flex slot to schedule this appointment? N/A Reason for Outreach HCC or suspected condition Payer: Payor: [facility] MEDICAID / Plan: [facility] [facility] / Product Type: Medicaid / Care Gap Reviewed:: Annual Wellness visit Reminder: Reminder note to check Health Maintenance for items below Health Maintenance items due: HEPATITIS B(3 of 3 - 3-dose series) due on 11/18/1997 HEPATITIS C SCREENING Never done BP CONTROLLED (<130/80) Never done LIPID SCREEN due on 2019 COVID-19 VACCINE(2 - Booster for Jovan series) due on 12/16/2020 ANNUAL PCP TEAM CHRONIC DISEASE VISIT due on 04/25/2022 DEPRESSION ASSESSMENT Never done DTAP,TDAP,TD(2 - Td or Tdap) due on 09/22/2022 Navigation Signature: Kathy Monterroso MA February 26, 2023 10:49 [facility]08-15-2023 History of Present illness Narrative* Kathy Monterroso MA - 02/26/2023 10:49 AM EDT POPULATION HEALTH NAVIGATION OUTREACH Action/FYI Diagnosis with HCC gap left: N40.0 - BPH (benign prostatic hyperplasia) E27.8 - Left adrenal mass (HCC) - METM Last Billed 01/31/2022 Due for: Annual Wellness Spoke with patient; he is currently looking for a new provider and will call back with the information to update his record Patient Identified by Name and : YES, via phone Outreach Outcome/Action Spoke to patient / parent / legal guardian: Patient declined Did you use a PCP flex slot to schedule this appointment? N/A Reason for Outreach HCC or suspected condition Payer: Payor: [employer] MEDICAID / Plan: [facility] MEDICAID / Product Type: Medicaid / Care Gap Reviewed:: Annual Wellness visit Reminder: Reminder note to check Health Maintenance for items below Health Maintenance items due: HEPATITIS B(3 of 3 - 3-dose series) due on 11/18/1997 HEPATITIS C SCREENING Never done BP CONTROLLED (<130/80) Never done LIPID SCREEN due on 2019 COVID-19 VACCINE(2 - Booster for Jovan series) due on 12/16/2020 ANNUAL PCP TEAM CHRONIC DISEASE VISIT due on 04/25/2022 DEPRESSION ASSESSMENT Never done DTAP,TDAP,TD(2 - Td or Tdap) due on 09/22/2022 Navigation Signature: Kathy Monterroso MA February 26, 2023 10:49 AM documented [facility] Miscellaneous Notes* Telephone Encounter - Loren Gant - 01/30/2023 2:38 PM EDT Sched 6 Mo P/O appt vv W/ GLUING PRESSMAN documented in this encounterK[facility]-20[facility] History of Present illness Narrative* Madhuri Singh, RENATA - 01/30/2023 11:00 AM EDT 3 Month Post-op--Visit conducted via agencyQ (audio and visual) d/t COVID 19 RYGB 11/06/22 Vinnie Olivarez 37 year old male Wt 100.2 kg (221 lb) BMI 30.82 kg/m 70# lost since surgery 62%EWL based on IBW w/ BMI 25 Final pre-surg wt: 291 lbs Tolerating by mouth well: Yes Nausea: No Vomiting: No Constipation: yes--has not switched to miralax d/t working long hours Diarrhea:No Weak/Shaky/Light-headed: rarely Diet advancement/meal pattern reviewed: phase 5 diet Intake of obesity endorsing foods: none Frequent grazing: none Satiety between meals: yes Average protein intake: 70-80 g Average fluid intake: 5--17 oz bottles/day 24 hour diet recall Breakfast: egg sandwich--2 egg, 1 piece sausage Lunch: tuna packet Dinner: chicken Snacks: 2 meat sticks Fluids (liquid intake-oz): yesterday: 7--17 oz bottles Alcohol/Caffeine/Sugar/Sweetener/Carbonation Beverages in Diet: occasional sweetener in water Protein (grams/day): yesterday: 72 g Exercise: Araceli--high speed walking 30-40 minutes, 4-5 day/week Vitamins--per manual: MV: OTC chewable kids vitamins w/ iron - 2 Calcium citrate: [place] calcium carbonate - taking 2 daily--advised to take with food Iron: 36mg within MV Vitamin A: 1800mcg (6,000 international unit(s) )within MV Vitamin D: 1200 international unit(s) within MV + 1600 from calcium -- 2800 international unit(s) total B1: 3mg within Mv -- needs 12mg daily B12: 12mcg within MV -- needs 500-1000mcg daily Zinc: 24mg within MV Copper: 4mg within MV +needs super b complex--vitamin b12/vitamin B1 Written information provided and reviewed: as noted Reinforced Behaviors: as noted 3 months postop gastric bypass patient, presents with 62% excess body weight loss. Overall, he denies any issues with reaching fluid and protein goals. 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 Therefore, he has been forgetful about taking his vitamins consistently. Reviewed need to add vitamin B12 and vitamin B1 vitamins to prevent deficiencies. Also reminded him to have blood work drawn to assess nutritional status. He also expressed interest to start attending counseling again. He is also concerned about how some of his medications are observing after weight loss surgery. Suggested that he reach out to provider. Also reviewed and discussed phase 5 diet with patient-all questions answered. Goals Eat 3 meals every day--consider protein shake as meal replacement (ie. premier protein) formal exercise 2-7x/week, as tolerated, goal of 30 minutes--consider with 2-3 days per week (consider on off-days), overall goal of 150 active minutes (walking) journal daily and bring to all appointments--document at least 5-7x/week, goal of 70-105g protein and 64oz of fluids--aim for around 25g protein with each meal update vitamins per protocol Plan: follow up at 1 year Total time in direct patient contact = 23 min. Greater than 50% of the time was spent in counselingand/or coordination of care. Madhuri Singh RD This note was generated using voice recognition technology and may contain grammatical errors. documented in this encounterK[facility]07-19-2023 Nurse Note* Alfreda Singh MA - 01/30/2023 11:00 AM EDT 10:01 am - Left voicemail for patient to obtain current weight for video visit. Alfreda Singh MA documented in this encounterK[facility]23 Miscellaneous Notes* Telephone Encounter - Awilda Lake RN - 12/19/2022 11:44 AM EDT RTW note created and e-mailed to patient. Awilda Lake RN December 19, 2022 11:45 AM documented in this encounterK[facility]06-05-2023 History of Present illness Narrative* Madhuri Singh RD - 12/17/2022 11:06 AM EDT 6 Week Post-Op--[email or web address] (audio and visual) d/t COVID 19 RYGB 11/06/22 Vinnie Olivarez 37 year old male Ht 180.3 cm (5' 11) Wt 112.5 kg (248 lb) BMI 34.59 kg/m 43# lost since surgery 38%EWL based on IBW w/ BMI 25 Final pre-surg wt: 291 lbs Tolerating by mouth well: Yes Nausea: Yes-scheduled for UGI Vomiting: Yes-scheduled for UGI Constipation: Yes-bowel movement every 3-5 days. GLUING PRESSMAN advised to switch to miralax Diarrhea:No Weak/Shaky/Light-headed: No Diet advancement/meal pattern reviewed: Yes-phase 4: 01/01/23 Food/beverage intolerance: having difficulty tolerating meat proteins. Will have UGI per pt Average fluid intake: 64 oz/day Average protein intake: 40-50 grams/day 24 hour diet recall Breakfast: 2 string cheese Lunch: 15 grams protein from pulled pork Dinner: tuna packet Snacks: n/a Fluids (liquid intake-oz): yesterday: at least 64 oz Alcohol/Caffeine/Sugar/Carbonation Beverages in Diet: none Protein (grams/day): yesterday: 44 grams Exercise: [employer]--high speed walking 30-40 minutes, 4-5 day/week Vitamins--per manual: MV: [facility] chewSpikeSource vitamins w/ iron - 2 Calcium citrate: [place] calcium carbonate - taking 2 daily Iron: 36mg within MV + 27mg additional - patient only needs 18mg Vitamin A: 1800mcg within MV Vitamin D: 1200 international unit(s) within MV + 1600 from calcium -- 2800 international unit(s) total B1: 3mg within Mv -- needs 12mg daily B12: 12mcg within MV -- needs 500-1000mcg daily Zinc: 24mg within MV Copper: 4mg within MV Patient will need to supplement additional thiamine, B12, vitamin A, and switch to calcium citrate supplement since his current supplement is calcium carbonate. We will send patient [email or web address] message with information. Written information provided and reviewed: as noted Reinforced behaviors: as noted 6 week post op RYGB pt presents with 38% EBWL. He is overall, doing ok. He is doing well with meeting his fluid goal, but is struggling to meet his protein goal d/t food getting stuck. He is able to tolerate softer protein foods without an issue. Average protein intake is 40-50 grams/day. Suggestedadding 2 Nigerian yogurts to his daily intake to ensure that protein goals are being met. He was receptive to this recommendation. Regarding VRT, he has not yet supplemented with the additional vitaminsper previous RD visit d/t not having the finances. He states that he will soon and will be pick them up. Reviewed phase 4 diet with pt-all questions answered. Goals Eat 3 meals every day--consider protein shake as meal replacement (ie. premier protein) formal exercise 2-7x/week, as tolerated, goal of 30 minutes--consider with 2-3 days per week (consider on off-days), overall goal of 150 active minutes (walking) journal daily and bring to all appointments--document at least 5-7x/week, goal of 70-105g protein and 64oz of fluids--aim for around 25g protein with each meal meet protein goals start phase 4 diet update vitamins per protocol Plan: follow up at 3 months post op. Total time in direct patient contact = 20 min. Greater than 50% of the time was spent in counselingand/or coordination of care. Madhuri Singh RD This note was generated using voice recognition technology and may contain grammatical errors. documented in this encounterK[facility]06-05-2023 History of Present illness Narrative* Debra Crocker, LINDA.DYNAMITER - 12/17/2022 10:50 AM EDT BARIATRIC SURGERY CLINIC FOLLOW UP NOTE DISTANCE HEALTH VISIT This Team Access Model visit is a virtual encounter. It required patient- provider interaction for the medical decision making as documented below. Consent was obtained to complete today's distance health visit. I have communicated my name and active licensure. The patient's identity and physical location wereverified at the time of this visit. Either the patient or their legal volunteer patient representative has been informed of the risks and benefits of -- and alternatives to -- treatment through a remote evaluation andconsents to proceed with the evaluation remotely. Name: Vinnie Olivarez Index Surgery Date of Surgery: 11/06/2022 Surgeon: Dr. Schroeder Surgical Procedure: Lap RYGB Pre-surgical weight: 132 kg (291 lb) Override Index Surgery Information? No Other Bariatric Surgeries None Visit: 5 weeks Today's Visit: Wt 112.5 kg (248 lb) BMI 34.59 kg/m2 BMI 34.59 kg/(m^2) Last Visit: Wt: 124.9 kg (275 lb 6.4 oz) BMI: 38.41 kg/(m^2) Total weight loss: 19.5 kg (43 lb) Margaret weight: 81.3 kg (179 lb 4.3 oz) Excess weight: 50.7 kg (111 lb 11.7 oz) % of excess body weight lost: 19.5 kg (43 lb) (38.48% of excess weight loss) COMPLICATIONS SINCE LAST VISIT?: NONE DIET INTAKE: Phase III He reports meeting fluid goal without difficulty. For the past couple of weeks, he has been experiencing a sensation that food is getting stuck and not passing through to his stomach, which leads to vomiting. He notices this more with meat- based proteins. He is able to drink fluids without issue along with softer proteins such as yogurt. He denies abdominal pain, acid reflux symptoms, fevers, chills, diarrhea, BRBPR. He is having constipation but is not using a stool softener. He is taking vitamins and medications without difficulty. He has been feeling very fatigued and struggling with some mood swings - he is scheduled to see his psychiatrist next week to discuss this. He denies suicidal or homicidal ideations. DAILY SUPPLEMENTS: See RD note Other: Actigall 300 mg twice daily EXERCISE: walking 30-45 minutes 4-5 days per week Are you attending any Support Groups? No attendance HISTORY REVIEWED (electronic chart updated): - medical history - medications - allergies Current Outpatient Medications Medication Sig cholecalciferol, Vitamin D3, (VITAMIN D3) 1,250 mcg (50,000 unit) cap capsule Take 1 capsule by mouth one time a week for 12 doses. Transition to 2,000-4,000 units of Vitamin D OTC after completing [address] (PROTONIX) 40 mg tablet Take 1 tablet by mouth once daily. ursodiol (ACTIGALL) 300 mg capsule Take 1 capsule by mouth twice daily. TO START AFTER SURGERY QUEtiapine (SEROQUEL) 200 mg tablet Take 200 mg by mouth twice daily. FLUoxetine HCl (PROZAC) 40 mg capsule Take 1 capsule by mouth once daily. OXcarbazepine (TRILEPTAL) 600 mg tablet 300mg qam 900mg qpm gabapentin (NEURONTIN) 300 mg capsule Take 1 capsule by mouth three times daily for 30 days. (Patient taking differently: Take 300 mg by mouth three times daily. Once daily, second and third dose as needed) diphenhydrAMINE (BENADRYL) 25 mg capsule Take 25 mg by mouth at bedtime as needed. Current Facility-Administered Medications Medication Dose Route Frequency perflutren lipid microspheres 1.3 mL in NaCl (PF) 0.9% 10 mL injection (DEFINITY) INTRAVENOUS DIRECTED PRN sodium chloride 0.9 % (flush) 10 mL (BD POSIFLUSH) 10 mL INTRAVENOUS DIRECTED PRN REVIEW OF SYSTEMS: Denies nausea, dumping syndrome, reactive hypoglycemia, gustatory rhinorrhea, Denies abdominal pain, constipation, diarrhea, melena, hematochezia, Denies paresthesias, gait abnormality, fatigue, weakness, lower extremity edema, and Denies taking NSAIDs and smoking PHYSICAL EXAM: Ht 180.3 cm (5' 11) Wt 112.5 kg (248 lb) BMI 34.59 kg/m GENERAL APPEARANCE: Pleasant, interacts appropriately and in no apparent distress Appropriately groomed, happy, smiling, and interactive. ENT: Oral mucosa pink without lesions/ulcerations; LUNGS: unlabored on room air negative findings: normal respiratory rate and rhythm, no cough ABDOMEN: Obese SKIN: Skin of normal texture, temperature without rashes/lesions/ulcerations. NEURO/PSYCH: Oriented to person, place, time; appropriate insight and judgement. Appropriate affect. ASSESSMENT AND PLAN: Normal post-OP course DISPOSITION: Return 1 month to EST/Standard office visit EDUCATION: Encouraged to continue with healthy lifestyle changes and incorporate cardiovascular andresistance training, Discussed weight loss expectations after bariatric and metabolic surgery, Advised PT to avoid NSAIDs, smoking tobacco given increased risk of marginal ulcers, or Discussed importance of protein intake as per the RDN note REFERRALS: N/A LABS: Today: See Epic Orders ASSESSMENT/PLAN: 1. S/P gastric bypass - ICD9: V45.86, ICD10: Z98.84 (primary diagnosis) - He is at 38% EWL which exceeds the predicted range. He is meeting fluid goal and most days is meeting protein goal but is having episodes of emesis due to sensation of food getting stuck. I will obtain an UGI to rule out a stricture. We discussed avoiding meat for now and focusing on liquids and very soft protein. - due for labs, will rule out any deficiencies leading to fatigue. - advised to begin using a stool softener for constipation (miralax) and increase fluids to 70-80 oz per day. - continue actigall and PPI - XR UPPER GI SINGLE CONTRAST - BASIC METABOLIC PNL - CBC - FERRITIN BLD - FOLATE SERUM - IRON + TIBC - PTH INTACT BLD - VITAMIN B12 BLOOD - VITAMIN D 25 HYDROXY - VITAMIN B1 (THIAMINE), WHOLE BLOOD 2. TIFFANIE on CPAP - ICD9: 327.23, V46.8, ICD10: G47.33, Z99.89 - continue CPAP until retested 3. Vomiting without nausea, unspecified vomiting type - ICD9: 787.03, ICD10: R11.11 - he complains of vomiting, without nausea, after eating soft proteins. He has the sensation of food getting stuck and not passing through. Will obtain an UGI to rule out stricture - as above in #1 4. Bipolar affective disorder, remission status unspecified (HCC) - ICD9: 296.80, ICD10: F31.9 - we discussed the importance of following up with his psychiatrist very closely. I advised that hego to the ED if he were to experience any concerning mental health concerns such as hallucinations,SI or HI. - he has been taking medications as directed without vomiting. He is not on any XR medications. Debra Crocker APRN.MARISOL Total time in direct patient contact = 30 min. Greater than 50% of the time was spent in counselingand/or coordination of care. documented in this encounterK[facility]05-03-2023 History of Present illness Narrative* Leyla Small, RENATA - 11/14/2022 3:30 PM EDT 9 Days Post-Op Patient seen in office Vinnie Olivarez Surgery Date: 11/06/22 JUNE LRYGB, Dr. Schroeder CBW: 275 lbs Compliance with Full Liquid Diet: Yes Tolerating by mouth well: Yes Nausea: No Vomiting: No Constipation: No Diarrhea:No Drinking Slowly: Yes Completed food record: No Journal brought to appointment: No Equate protein shake (30g)/ensure max (30g) - TID + water + broth + popsicles 90g average protein intake (g) 50 oz (minimum) average liquid intake (oz) Food/beverage intolerance: SF flavored shakes/jarquin Exercise: able to walk around 30 minutes daily VRT MV: OTC chewable kids vitamins w/ iron - 2 Calcium citrate: chewable (unsure of brand) Iron: in addition to MV taking extra -- will follow up with pt Written information provided and reviewed: soft diet recipes: bariatric chili, high protein supplements journal vitamin schedule Reinforced Behaviors: increase exercise: as directed and tolerated vitamin schedule increase liquid intake Patient presents 9 days /sp LRYGB, tolerating diet phase better. He was hospitalized for abdominal pain, reports doing a lot better since then. Verbalized he's not keeping a food journal as well as he could be, he does plan on resuming this today. Reports some taste aversions to SF liquids. Per 24 hr recall, meeting protein goals and lower range of fluid goals. Recommended cutting back to 2.5 shakes to help increase fluid intake or trying protein jarquin. Is able to meet his walking goals at this time, encouraged to increase as tolerated. Post-op vitamins reviewed, will follow up with patient on brand names of vitamins to update chart. Reviewed phase III recommendations/guidelines with patient via bariatric manual, will advance at 11/20. Plan: follow up with RD at 6 weeks post op Goals advance to phase III 2 weeks to 8 weeks - per manual Eat 3 meals every day--consider protein shake as meal replacement (ie. premier protein) formal exercise 2-7x/week, as tolerated, goal of 30 minutes--consider with 2-3 days per week (consider on off-days), overall goal of 150 active minutes (walking) journal daily and bring to all appointments--document at least 5-7x/week, goal of 70-105g protein and 64oz of fluids--aim for around 25g protein with each meal Total time in direct patient contact = 20 min. Greater than 50% of the time was spent in counselingand/or coordination of care. Leyla Small RD This note was generated using voice recognition technology and may contain grammatical errors. documented in this encounterK[facility]05-03-2023 History of Present illness Narrative* Rogelio West RN - 11/14/2022 1:44 PM EDT TRANSITIONAL CARE MANAGEMENT (TCM) COMMUNITY MONITORING PROGRAM Provider Action/FYI: Spoke to patient. He is on his way to post-op appt Denies questions or concerns. Appointments for Next 60 Days Date Time Provider Location Dept Phone 11/14/2022 3:00 PM PAM SCHROEDER [facility] [phone] 11/14/2022 3:30 PM LEYLA SMALL [facility] [phone] SUMMARY: Discharge Network Status: In-Network Discharge Pt discharged from [facility] on 11/12/22. Admitted for: Abdominal pain Contact made with patient: Yes Hi my name is Rogelio West RN and I am calling from the [facility] on behalf of your PCP, Eileen Vogel MD I understand you were recently in the hospital so I am calling to check in with you to ensure you are feeling well now that you're home. May I ask you a few questions related to your hospital stay and well-being? Yes Contact with patient post discharge, spoke to patient. Patient identified by name and . Do you feel your health is BETTER, WORSE, or the SAME since leaving the hospital? Same ACTION TAKEN: Patient indicated symptoms are better or same, no action required. Continue outreach. MEDICATIONS: Many patients have questions or concerns about their medications once they are home. Do you have any questions about taking your medications or which medication you should be on? No Do you need any medication refills at this time, including any of the medications you might take only when needed? No ACTION TAKEN: No action required For RNs or Pharmacy completing outreach ONLY, was a medication review completed? No SOCIAL: We would like to make sure you have what you need so that your basics needs are met - including your personal safety, food, housing and medications. Would you like to speak with a social work steam setter to help give you support for any of these needs? No It can be normal to feel anxious or down during a time like this. Would you like to talk to a mental health professional about how you have been feeling? No ACTION TAKEN: No action taken DISCHARGE INTRUCTIONS: Your discharge instructions / After Visit Summary (AVS) are important in guiding you through the recovery process. Do you have any questions related to your discharge instructions? No Do you have all the necessary equipment and supplies at home? Yes ACTION TAKEN: No action required I would like to help you schedule a hospital follow-up virtual or telephone visit with your PCP. This is a great way for you to connect with your provider to ensure you have safely transitioned home.If you are agreeable, I will send your request to a computer processing scheduler who will contact and assist you with that appointment. This will give you an opportunity to ask any questions or address any concerns youmay have with your PCP. Inform the patient that if they have any questions or concerns prior to that appointment, to call their PCP's office right away. ACTION TAKEN: No action required, patient declines appointment. Your doctor would like us to remind you of the recommendations regarding the coronavirus (Covid19) outbreak: Avoid public places as much as possible. Avoid close contact (within 6 feet) with others you don t live with, especially if they are sick. Stay home if you are sick. Wash your hands regularly for at least 20 seconds with soap and water. Wear a cloth mask in public places to help reduce community spread. Do not go to your Doctor s office unless instructed to do so. For any non- emergency symptoms, call your Doctor s office to get instructions on how to manage (we might recommend a telephone or virtualvisit). For emergency symptoms, proceed to Emergency Department as usual but inform them of cough and fever symptoms LACHELLE if present (or call on the way if possible). NITA Education Ordered -: No Rogelio West RN * Rogelio West RN - 11/13/2022 11:21 AM EDT TCM Home Visit Referral Source of Stratification: [facility] Admission Status: Discharged Readmission Risk Score: 18 IRENE Score: 2 Patient meets program referral criteria: No Patient does not qualify for High Risk TCM Home Visit program due to: Discharged home, does not meet program criteria Rogelio West RN November 13, 2022 11:21 AM TRANSITIONAL CARE MANAGEMENT (TCM) COMMUNITY MONITORING PROGRAM Provider Action/FYI: Outreach attempt #1 Unable to reach patient. Left message. Will try again later Pt has post op f/u on 11/14/22 Appointments for Next 60 Days Date Time Provider Location Dept Phone 11/14/2022 3:00 PM PAM SCHROED[facility] [phone] 11/14/2022 3:30 PM LEYLA [facility] [phone] SUMMARY: Discharge Network Status: In-Network Discharge Pt discharged from [facility] on 11/12/22. Admitted for: Abdominal pain SUMMARY OF WHAT HAPPENED WHILE I WAS IN THE HOSPITAL: The patient was admitted with abdominal pain and dilated loops of bowel on CT imaging. A small bowel follow through showed patency with free flow of contrast through the JJ anastomosis and no signs of obstruction or acute processes. He was started on a bariatric phase II diet and tolerated well. His symptoms improved and he is now being discharged home. Contact made with patient: No - next outreach attempt will be on next Outreach ended Rogelio West RN documented in this encounterKet[facility]04-29-[address] Montaño [place] November 10, 2022 11:32pm Note Date/Time November 10, 2022 8:2 6pm [facility] Medical Records Department [address] [place] [id number] Emergency Department Summary 11/10/22 MR#: [id number] Acct: [id number] Name: VINNIE OLIVAREZ Rep #:[id number] : 1985 37 From: Vinnie WORTHINGTON PCP: Care Physician,No Primary Status :REG ER Location: ED ADDENDUM by ANDER Pappas on 11/10/22 at 2210 On reassessment, the patient is still feeling much better. Vital signs are stable. Patient will receive simethicone, the ER attending will communicate patient's reassessment with the surgeon [facility]. 11/10/22 2210<Electronically signed by Vinnie WORTHINGTON> Cosigner Signature (if applicable): cc: No Primary Care Physician ~* Signed HPI <ANDER Johnson - Last Filed: 11/10/22 22:10> History of Present Illness Chief Complaint: Abd Pain Narrative Narrative: Patient is a 37-year-old male with history of obesity, hypertension, TIFFANIE, who presents to the emergency department for severe epigastric pain. Patient had a gastric bypass surgery at [facility] [address] Schroeder. The patient had a gastric bypass surgery as well as some mesh placement. Patient states that around 5 PM which was roughly 3 and half hours ago, the patient started having worsening pain. They did call the surgeon who told him to quit drinking propel, as well as walk around and drink water. Patient states the pain has intensified, and he is not sure what to do Patient states he has 1 feeling of nausea however does not feel nauseous now. Pain states he cannot sit still and is in severe pain. Denies any fever or chills. Patient states he is still passing gas and having bowel movements [facility] <ANDER Johnson - Last Filed: 11/10/22 22:10> [facility] Medical History ADHD Adrenal benign tumor Anemia Benign essential HTN Bipolar disorder Chronic pain Degenerative disc disease GERD (gastroesophageal reflux disease) Hiatal hernia History of DVT (deep vein thrombosis) Hypertension Kidney stones Migraines Obstructive sleep apnea Smoker Substance abuse Home Medications gabapentin 300 mg capsule 300 mg PO BID PRN mood 04/08/20 [History Last Taken Unknown] gabapentin 300 mg capsule 300 mg PO QHS mood 04/08/20 [History Last Taken 11/24/20] calcium carb-ergocalciferol (vit D2) 600 mg calcium-200 unit tablet 1 tab PO DAILY 11/10/22 [History Last Taken Unknown] diphenhydramine HCl 25 mg capsule (Benadryl) 25 mg PO QHS PRN Sleep 11/10/22 [History Last Taken Unknown] enoxaparin 40 mg/0.4 mL subcutaneous syringe (Lovenox) 40 mg subcut Q12H 11/10/22 [History Last Taken Unknown] fluoxetine 40 mg capsule 40 mg PO DAILY 11/10/22 [History Last Taken Unknown] oxcarbazepine 600 mg tablet (Trileptal) 600 mg PO BID 11/10/22 [History Last Taken Unknown] quetiapine 400 mg tablet,extended release 24 hr 200 mg PO BID 11/10/22 [History Last Taken Unknown] sucralfate 100 mg/mL oral suspension (Carafate) 10 ml PO .qid #420 mL 11/10/22 [Rx Last Taken Unknown] tramadol 50 mg tablet 50 mg PO Q8 PRN Pain 11/10/22 [History Last Taken Unknown] ursodiol 300 mg capsule 300 mg PO BID 11/10/22 [History Last Taken Unknown] Allergy/AdvReac Type Severity Reaction Status Date / Time cinnamon Allergy Anaphylaxis Verified 11/10/22 20:02 codeine Allergy PT UNSURE Verified 11/10/22 20:02 OF REACTION Surgical History H/O lithotripsy History of colonoscopy History of esophagogastroduodenoscopy (EGD) History of total adrenalectomy Hx of tonsillectomy Social History Smoking Status: Former smoker substance use type: does not use ROS <ANDER Johnson - Last Filed: 11/10/22 22:10> ROS ED ROS Narrative Constitutional: Negative for fever, chills, weight loss, weakness Eyes: Negative for vision loss, vision change, double vision ENT: Negative for any sore throat, ear pain, congestion Cardiovascular: Negative for any chest pain, tightness, palpitations Respiratory: Negative for any cough, sputum production, hemoptysis, dyspnea, dyspnea on exertion, orthopnea Gastrointestinal: Negative for any vomiting, diarrhea, constipation, blood in stool, blood in vomit. Positive for abdominal pain, nausea : Negative for any urinary frequency, dysuria, retention, blood in urine Muscle skeletal: Negative for any muscle joint pain, stiffness, myalgias, arthralgias, neck pain, back pain Neurological: Negative for any headache, syncope, numbness or tingling, dizziness Skin: Negative for any rashes, lumps, itching, abrasions, lacerations Psychiatric: Negative for any depression, anxiety, stress, suicidal ideation, homicidal ideation Hematologic: Negative for any easy bruising, excessive bruising, easy bleeding Allergies: Negative for any eczema, hives, rash EXAM <ANDER Johnson - Last Filed: 11/10/22 22:10> Physical Exam Narrative Exam Narrative: Vital signs reviewed. Upon initial examination, patient does appear to be in mild distress secondary to abdominal pain. Patient is alert and orient x4. HEET: Head normocephalic atraumatic, TMs clear bilaterally. Posterior pharynx is clear, moist mucous membranes. Nares clear bilaterally. Neck: Supple with no lymphadenopathy or tenderness. No signs of meningismus, negative jolt sign. Cardiac: Regular rate and rhythm no murmurs gallops or rubs, equal peripheral pulses bilaterally. Respiratory: Lungs clear to auscultation bilaterally. No chest tenderness. Abdomen: nondistended. No abdominal bruit or pulsatile masses. No hepatosplenomegaly. Patient is shaking was difficult to assess. Patient bili was slightly soft, hypoactive bowel sounds. There were multiple surgical incisions that look in the proper state of healing, they were covered with glue. Extremities: No peripheral edema, no signs of gross trauma or deformity. Activefull range of motion of all extremities. Neuro: Cranial nerves II through XII intact, no focal neurological deficits. Skin: Clean dry and intact with no rash, purpura, petechiae, vesicles or pustules. Backs/flank: No CVA tenderness, no midline spinal tenderness, no deformity. Psych: Normal mood and affect. No SI, HI or acute psychosis. Const Vital Signs: 11/10/22 20:00 11/10/22 22:14 Temperature 97.1 F L Temperature Source Temporal Pulse Rate 84 Respiratory Rate 16 18 Blood Pressure 152/100 H Blood Pressure Mean 117 Pulse Ox 100 Oxygen Delivery Method Room Air Room Air <Dr. Otto Montaño MD - Last Filed: 11/10/22 23:32> Physical Exam Const Vital Signs: 11/10/22 20:00 11/10/22 22:14 Temperature 97.1 F L Temperature Source Temporal Pulse Rate 84 Respiratory Rate 16 18 Blood Pressure 152/100 H Blood Pressure Mean 117 Pulse Ox 100 Oxygen Delivery Method Room Air Room Air MDM <ANDER Johnson - Last Filed: 11/10/22 22:10> [facility] Lab Data Labs: Laboratory Results - last 24 hr 11/10/22 11/10/22 11/10/22 20:20 20:20 20:20 WBC 8.1 RBC 5.34 Hgb 14.7 Hct 43.2 MCV 80.9 MCH 27.5 MCHC 34.0 RDW Std Deviation 36.5 RDW Coeff of Michael 12.6 Plt Count 302 MPV 10.4 Immature Gran % (Auto) 0.200 Neut % (Auto) 53.3 Lymph % (Auto) 32.3 [place] % (Auto) 12.5 H Eos % (Auto) 1.2 Baso % (Auto) 0.5 Absolute Neuts (auto) 4.3 Absolute Lymphs (auto) 2.63 Nucleated RBC % 0 Sodium 134 L Potassium 3.8 Chloride 103 Carbon Dioxide 23.0 Anion Gap 8 BUN 17 Creatinine 0.98 Estim Creat Clear Calc 108.85 Est GFR (MDRD) Af Amer 111 Est GFR (MDRD) Non-Af 91 BUN/Creatinine Ratio 17.4 Glucose 95 Lactic Acid 2.1 H* Calcium 9.6 Total Bilirubin 0.60 AST 43 H ALT 143 H Alkaline Phosphatase 77 Total Protein 7.8 Albumin 3.6 Globulin 4.2 Albumin/Globulin Ratio 0.9 Lipase 53 Radiography Diagnostic Testing: Clinical Impression(s) from Imaging Studies Chest X-Ray 11/10/22 20:35 IMPRESSION: Diminished inspiratory effort. No acute disease Electronically Signed: Keith Daniel MD at 21:37 EDT Reading Location ID and State: [facility] / [place] , Service support , Treatment and Re-Evaluation :: All radiologic examinations were read, reviewed by the emergency department attending. From these reads, a plan of care will be put in place. Patient arrives in moderate distress secondary to abdominal pain. Patient difficulty collecting his thoughts secondary to his abdominal pain. It was difficult to perform a physical examination. Patient was given IV fluids IV pain medicine, IV nausea medicine. Patient's laboratory studies show a normal CBC, chemistries were unremarkable. Patient did have a slight lactic acidosis at 2.1. I did speak with the patient's surgeon Dr. Schroeder. I went over the patient's physical findings as well as laboratory values. I did perform a chestx-ray, this was normal, not showing any free air. The surgeon would like us to reassess after the pain medicine as well as some simethicone. I did reassess the patient after the IV Dilaudid, patient was in a much more calm state. Is able to do a more proficient exam. Patient's belly is soft, patient has minimaltenderness. I believe the tenderness that he is feeling is secondary to post surgery. <Dr. Otto Montaño MD - Last Filed: 11/10/22 23:32> [facility] Lab Data Attestation: I reviewed the patient's lab results. Labs: Laboratory Results - last 24 hr 11/10/22 11/10/22 11/10/22 20:20 20:20 20:20 WBC 8.1 RBC 5.34 Hgb 14.7 Hct 43.2 MCV 80.9 MCH 27.5 MCHC 34.0 RDW Std Deviation 36.5 RDW Coeff of Michael 12.6 Plt Count 302 MPV 10.4 Immature Gran % (Auto) 0.200 Neut % (Auto) 53.3 Lymph % (Auto) 32.3 [place] % (Auto) 12.5 H Eos % (Auto) 1.2 Baso % (Auto) 0.5 Absolute Neuts (auto) 4.3 Absolute Lymphs (auto) 2.63 Nucleated RBC % 0 Sodium 134 L Potassium 3.8 Chloride 103 Carbon Dioxide 23.0 Anion Gap 8 BUN 17 Creatinine 0.98 Estim Creat Clear Calc 108.85 Est GFR (MDRD) Af Amer 111 Est GFR (MDRD) Non-Af 91 BUN/Creatinine Ratio 17.4 Glucose 95 Lactic Acid 2.1 H* Calcium 9.6 Total Bilirubin 0.60 AST 43 H ALT 143 H Alkaline Phosphatase 77 Total Protein 7.8 Albumin 3.6 Globulin 4.2 Albumin/Globulin Ratio 0.9 Lipase 53 Radiography Diagnostic Testing: Clinical Impression(s) from Imaging Studies Chest X-Ray 11/10/22 20:35 IMPRESSION: Diminished inspiratory effort. No acute disease Electronically Signed: Keith Daniel MD at 21:37 EDT Reading Location ID and State: [facility] / [place] , Service support , Treatment and Re-Evaluation Comments:: Seen and evaluated independently and in conjunction with nurse practitioner. Agree with notes above unless documented otherwise. Gradual onset not just after a meal, upper abdominal pain today, this is postop day #4. Was only having mild postoperative soreness in the areas of his incisions prior to this. Does not know exactly what surgery he had, it was not agastric sleeve, probably Shahab-en-Y. Physician was Dr. Murphy. On exam patient is in painful distress. He is very tender in his epigastrium and left upper quadrant with some voluntary guarding. Awaiting portable chest x-ray to be obtained, and treat the patient's symptoms, and then will discuss with the surgeon at [facility] and arrange transfer and/or CT if they want it. Patient reevaluated after Dilaudid much better, much less tender. Dr. Schroeder requested simethicone, the nurse practitioner gave him a simethicone pillow I also ordered a dose of Mylanta, the patient is further better but still having some mild discomfort after that. Discussed again with Dr. Schroeder, who is okay with [place] home close outpatient follow-up after the weekend, advising increasing the patient's pantoprazole to 40 mg twice daily instead of just once a day, and adding Carafate 4 times daily liquid. Discharge Plan Triage Chief Complaint: Abd Pain ED Midlevel Provider: Vinnie Pappas ED Provider: Otto Montaño Dx/Rx/DC Orders Clinical Impression: Acute epigastric pain Instructions: ED Epigastric Pain Uncertain Cause Prescriptions: New sucralfate [Carafate] 100 mg/mL suspension 10 ml PO .qid Qty: 420 0RF No Action gabapentin 300 MG capsule 300 mg PO QHS gabapentin 300 MG capsule 300 mg PO BID PRN (Reason: mood) enoxaparin [Lovenox] 40 mg/0.4 mL Syringe 40 mg SUBCUT Q12H tramadol 50 mg tablet 50 mg PO Q8 PRN (Reason: Pain) oxcarbazepine [Trileptal] 600 mg Tablet 600 mg PO BID quetiapine 400 mg tablet extended release 24 hr 200 mg PO BID Label Comments: TAKE 1 TABLET BY MOUTH AT BEDTIME fluoxetine 40 mg capsule 40 mg PO DAILY ursodiol [Actigall] 300 mg Capsule 300 mg PO BID diphenhydramine HCl [Benadryl] 25 mg Capsule 25 mg PO QHS PRN (Reason: Sleep) Calcium + Vitamin D 600 mg calcium- 200 unit Tablet 1 tab PO DAILY Primary Care Provider: Care Physician,No Primary Referrals: dr. Elda [Other] (call for appt to be seen on Saturday or Saturday) Care Physician,No Primary [Primary Care Provider] - Activity Restrictions/Additional Instructions: Increase your pantoprazole to 1 capsule twice daily instead of just once daily. Continue with the liquids only for meals. Disposition Disposition: Home, Self Care What to do if you have Problems For any increased pain, shortness of breath, bleeding, nausea or vomiting, chestpain, or any unexpected problems, contact your Primary Care Provider. Call [facility] ([phone]) or report to the closest Emergency Room. Call 911 if necessary. 11/10/222205 <Electronically signed by Vinnie VICTORC> Cosigner Signature (if applicable): CC: No Primary Care Physician ~ Signed [place] Work Phone: [phone] Miscellaneous Notes* Telephone Encounter - Debra Crocker APRN.CNP - 11/09/2022 11:51 AM EDT I contacted Vinnie Olivarez for post-operative follow up s/p Lap RYGB with Dr. Schroeder on 11/06/22 No answer, left voicemail. Debra Crocker APRN.DYNAMITER documented in this encounterK[facility]04-24-2023 Miscellaneous Notes* Telephone Encounter - Etelvina Frazier - 11/05/2022 4:24 PM EDT Called patient they are aware to be here at 10;45 for SX tomorrow documented in this encounterK[facility]04-24-2023 History of Present illness Narrative* Raj Quintero DO - 11/05/2022 10:03 AM EDT HEMATOLOGY/ONCOLOGY Follow up Vinnie Anderson Ayladuke 1985 May [birth year], 2022 Referred by: Pam Schroeder [address] [facility] [address] [facility] [id number] Diagnosis: ALYCIA CC: f/u ALYCIA HPI: Vinnie Olivarez is a 36 year old male w/ PMHx ALYCIA, obesity, hiatal hernia, chronic gastritis whopresents for ALYICA. In review of records, patient has had known paraesophageal hernia since he was found to be anemic with iron deficiency over a year ago. Has had significant gastritis and duodenitis.Has had multiple scopes in the past. Currently undergoing weight loss eval for possible bariatric surgery. Started taking PO iron a few months ago. Denied melena. Thinks he may have seen some blood on the rim of his Bms but he notes he is partially color blind so not fully sure. Interval Hx: Since last being seen Sher Menchaca overall is doing well. Undergoes his bariatric surgery tomorrow. Tolerating PO iron. Denied N/V/F/C/SOB/CP/abd pain. Had c-scope for bariatric surgery and was neg for malignancy. PAST MEDICAL HISTORY Diagnosis Date Back pain extra vertebrae in my lower back. 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 Verdin EGD EGD WITH BIOPSY(S) 06/16/2021 6 cm paraesophageal hernia, Joni's erosions, duodenitis; Dr. Schroeder LITHOTRIPSY Right 11/15/2020 kidney; Dr. Gillette PAST SURGICAL HISTORY OF wisdom teeth SCREENING COLONSCOPY NOT HIGH RISK TONSILLECTOMY AND ADENOIDECTOMY HX Current Outpatient Medications Medication Sig Dispense Refill ursodiol (ACTIGALL) 300 mg capsule Take 1 capsule by mouth twice daily. TO START AFTER SURGERY 60 capsule 5 enoxaparin (LOVENOX) 40 mg/0.4 mL Inject 0.4 mL subcutaneously every 12 hours for 28 days. TO STARTAFTER SURGERY 22.4 mL 0 QUEtiapine (SEROQUEL) 200 mg tablet Take 200 mg by mouth twice daily. pantoprazole DR (PROTONIX) 40 mg tablet Take 1 tablet by mouth once daily. 90 tablet 3 FLUoxetine HCl (PROZAC) 40 mg capsule Take 1 capsule by mouth once daily. 30 capsule 0 OXcarbazepine (TRILEPTAL) 600 mg tablet 300mg qam 900mg qpm 90 tablet 0 gabapentin (NEURONTIN) 300 mg capsule Take 1 capsule by mouth three times daily for 30 days. (Patient taking differently: Take 300 mg by mouth three times daily. Once daily, second and third dose as needed) 90 capsule 0 diphenhydrAMINE (BENADRYL) 25 mg capsule Take 25 mg by mouth at bedtime as needed. Current Facility-Administered Medications Medication Dose Route Frequency Provider Last Rate Last Admin perflutren lipid microspheres 1.3 mL in NaCl (PF) 0.9% 10 mL injection (DEFINITY) INTRAVENOUS DIRECTED PRN Franklyn Coyne MD sodium chloride 0.9 % (flush) 10 mL (BD POSIFLUSH) 10 mL INTRAVENOUS DIRECTED PRN Franklyn Coyne MD ALLERGIES Allergen Reactions Cinnamon Swelling Codeine Unknown Pt does not want due to multiple family members allergic FAMILY HISTORY Problem Relation Age of Onset Heart Attack Mother Osteoporosis Mother COPD Mother Heart Father AR, CABG x 4 Social History Tobacco Use Smoking status: Former Packs/day: 1.00 Years: 23.00 Pack years: 23.00 Types: Cigarettes Quit date: 03/29/2021 Years since quittin.6 Smokeless tobacco: Never Vaping Use Vaping Use: current everyday user Substances: THC, CBD, Flavoring Substance Use Topics Alcohol use: Yes Comment: rarely Drug use: Yes Types: Marijuana Comment: Daily (vape) (medical card) Review of Systems: A complete ROS was obtained and is otherwise neg except as noted in HPI Physical Exam: BP 131/83 Pulse 61 Ht 5' 9.016 (1.75m) Wt 283 lb 9.6 oz (128.6kg) SpO2 98% BMI 41.86 kg/(m^2). ECOG PS: 1 General: Aox3, NAD HEENT: EOMI, PERRLA, sclera anicteric, MMM Neck: Supple, no thyroid nodules, no JVD, no adenopathy Chest: CTAB w/o w/r/r Heart: RRR w/o m/r/g. Abdomen: Soft, nontender, nondistended, bowel sounds present, no organomegaly or mass Extremities: No edema, no erythema 2+ DP Pulses Neurological: CN2-12 grossly intact Skin: Warm and dry with no rashes or ulcerations. Nodes: No palpable adenopathy in the cervical, supraclavicular, infraclavicular, or axillary regions. Hematologic: no bruising or petechiae. Psychiatric: Alert and oriented x3 No changes Labs Reviewed labs Appointment on 10/24/2022 Component Date Value Ref Range Status Urine 3 OH Cotinine 10/24/2022 <50 ng/mL Final Urin Anabasine Quant 10/24/2022 <5 ng/mL Final Urin Cotinine Quant 10/24/2022 <15 ng/mL Final Urin Nicotine Quant 10/24/2022 <15 ng/mL Final WBC 10/24/2022 7.23 3.70 - 11.00 k/uL Final RBC 10/24/2022 4.89 4.20 - 6.00 m/uL Final Hemoglobin 10/24/2022 13.3 13.0 - 17.0 g/dL Final Hematocrit 10/24/2022 40.3 39.0 - 51.0 % Final MCV 10/24/2022 82.4 80.0 - 100.0 fL Final MCH 10/24/2022 27.2 26.0 - 34.0 pg Final MCHC 10/24/2022 33.0 30.5 - 36.0 g/dL Final RDW-CV 10/24/2022 12.9 11.5 - 15.0 % Final Platelet Count 10/24/2022 218 150 - 400 k/uL Final MPV 10/24/2022 9.7 9.0 - 12.7 fL Final Neutrophils % 10/24/2022 51.1 % Final Abs Neut 10/24/2022 3.70 1.45 - 7.50 k/uL Final Lymphocytes % 10/24/2022 38.5 % Final Abs Lymph 10/24/2022 2.78 1.00 - 4.00 k/uL Final Monocytes % 10/24/2022 8.7 % Final Abs [place] 10/24/2022 0.63 <0.87 k/uL Final Eosinophils % 10/24/2022 0.7 % Final Abs Eosin 10/24/2022 0.05 <0.46 k/uL Final Basophils % 10/24/2022 0.7 % Final Abs Baso 10/24/2022 0.05 <0.11 k/uL Final Immature Granulocytes % 10/24/2022 0.3 % Final Abs Immature Gran 10/24/2022 <0.03 <0.10 k/uL Final NRBC 10/24/2022 0.0 /100 WBC Final Absolute nRBC 10/24/2022 <0.01 <0.01 k/uL Final Diff Type 10/24/2022 Auto Final Glucose 10/24/2022 95 74 - 99 mg/dL Final BUN 10/24/2022 12 9 - 24 mg/dL Final Creatinine 10/24/2022 1.05 0.73 - 1.22 mg/dL Final Sodium 10/24/2022 139 136 - 144 mmol/L Final Potassium 10/24/2022 4.6 3.7 - 5.1 mmol/L Final Chloride 10/24/2022 100 97 - 105 mmol/L Final CO2 10/24/2022 29 22 - 30 mmol/L Final Anion Gap 10/24/2022 10 9 - 18 mmol/L Final Calcium, Total 10/24/2022 9.6 8.5 - 10.2 mg/dL Final Estimated Glomerular Filtration Ra* 10/24/2022 93 >=60 mL/min/1.73m Final Albumin 10/24/2022 4.3 3.9 - 4.9 g/dL Final ABO 10/24/2022 B Final Rh(D) 10/24/2022 Positive Final Antibody Screen 10/24/2022 Negative Final HIstorical Ab Scr Status 10/24/2022 NEGATIVE Final Radiology: Pathology: Assessment and Plan: Vinnie Olivarez is a 36 year old male w/ PMHx ALYCIA, obesity, hiatal hernia, chronic gastritis who presents for ALYCIA # Iron deficiency anemia - has had prior endoscopies in the past, has had GI bleeds in the past related to gastritis/duodenitis from paraesophageal hernia. Pending a repeat c-scope for bariatric surgery - cont PO iron - stressed importance of continuing PO iron post op - we will be available if he needs IV Iron in the future # Obesity/paraesophageal hernia - currently undergoing weight loss program - from hematologic perspective, patient is optimized for surgery, if he is non- responsive to PO iron, we can provide IV Iron prior to surgery but given his baseline hgb of ~11, would not hold up surgery for IV Iron, can always be provided post-op # RLE DVT - in the past, not on A/C - would do routine prophylactic A/C per surgical protocols, at higher risk for VTE in setting of surgery Raj Quintero DO Hematology/Oncology [facility] Tina Kimbrough General Parts of the HPI, ROS, exam and impression/plan may have been copied from my personal previous clinical note and remain pertinent. Current changes have been made and documented today. Other parts or data were deleted if not relevant for today. The documentation has been reviewed and edited as necessary to support the clinical decision makingfor today's visit. The time of this note does not reflect the time I saw the patient but the time that this note was written. documented in this encounterKet[facility]04-19-2023 History of Present illness Narrative* Debra Crocker APRN.DYNAMITER - 10/31/2022 1:36 PM EDT Date: October 31, 2022 Time: 1:36 PM DISTANCE HEALTH VISIT This Team Access Model visit is a virtual encounter. It required patient- provider interaction for the medical decision making as documented below. Consent was obtained to complete today's distance health visit. I have communicated my name and active licensure. The patient's identity and physical location wereverified at the time of this visit. Either the patient or their legal volunteer patient representative has been informed of the risks and benefits of -- and alternatives to -- treatment through a remote evaluation andconsents to proceed with the evaluation remotely. Name: Vinnie Olivarez CHIEF COMPLAINT: This is a 37 year old male with morbid obesity who presents to clinic for bariatric surgery and is completing educational class today. HISTORY OF PRESENTING ILLNESS: This individual is currently enrolled in the [facility] Program persuing weight loss surgery and presents to complete preoperative requirements.Vinnie Olivarez has been seen monthly for medicallysupervised weight loss and is being evaluated on their lifestyle modifications.Denies any difficulty hearing presentation. Denies any difficulty visualizing educational materials PHYSICAL EXAM: General Appearance: Well appearing, alert, in no acute distress, well-hydrated, well nourished. IMPRESSION: Vinnie Olivarez is a 37 year old male with the following diagnosis and co-morbidities: Morbid (severe) obesity PLAN: Counseling and surgical care coordination was addressed during this educational class. Pathophysiology and side effects of surgery were discussed. Medications to be stopped 2 weeks and 1 week prior to surgery were discussed. Discharge instructions in terms of dietary restrictions, activity requirements, medications, follow-up were reviewed. Vitamins and supplements were reviewed with samples provided. Additionally, signs and symptoms of vitamin deficiencies reviewed. Postoperative medication management was explained. Received prevention education in terms of post operative problems and complications. Patient was educated on signs and symptoms requiring immediate and/or emergent medical atten tion. This patient also received dietary education. Patient was educated on incision care, signs of surgical site infection, and importance of contacting surgical team for incision concerns. Patient was educated on risk and should not get within two years after bariatricsurgery (if applicable). could result in very poor weight loss and could be dangerous forthe baby. This individual received an educational handouts reviewing the for mentioned class materials. At the end of class, Vinnie Olivarez was provided time to answer questions. Denies any further questions orconcerns. The [facility] Center Patient agreement was reviewed and Vinnie Olivarez received a copy of the patient agreement. The patient is aware by receiving this agreement, this accepts their understanding of the agreement and that surgery may not be recommended for medical and behavorial health reasons. Total time of virtual encounter: 60 minutes Debra Crocker APRN.CNP documented in this encounterKettering [facility]04-17-2023 History and physical note * Yu Baez APRN.CNP - 10/29/2022 9:20 AM EDT HISTORY AND PHYSICAL EXAMINATION SERVICE DATE: 10/29/2022 SERVICE TIME: 9:34 AM PRIMARY CARE PHYSICIAN: Eileen Vogel MD REASON FOR VISIT: Vinnie Olivarez is a 37 year old male who is scheduled for Procedure(s) with comments: XI ROBOTIC LAPAROSCOPIC GASTRIC RESTRICTIVE SURG W/ BYPASS & SHAHAB-EN-Y </= 150CM (N/A) - bariatric eras protocol EGD (N/A) LAPAROSCOPIC BIOPSY LIVER (N/A) TRANSFUSION BLOOD (N/A) at the request of @REFPROV2@ for routine H&P. My final recommendation will be communicated back to the requesting physician by way of shared medical record or letter. Subjective The patient has the following: ACTIVE PROBLEM LIST Back Pain Dvt (Deep Venous Thrombosis) (Hcc) Psychiatric Disorder Tiffanie (Obstructive Sleep Apnea) Calculus of Kidney Essential Hypertension Obesity, Class III, BMI >= 40 Left Adrenal Mass (Hcc) Gerd (Gastroesophageal Reflux Disease) Bph (Benign Prostatic Hyperplasia) Preop Pulmonary/Respiratory Exam Abnormal Stress Test Anemia Preop Examination COVID-19 Immunization Status Overdue - COVID-19 VACCINE (2 - Booster for Jovan series) Overdue since 12/16/2020 10/21/2020 Imm Admin: COVID-19 vaccine (JOVAN) CHIEF COMPLAINT: The reason for this visit is to perform a comprehensive review of the patient's past medical history, assess their current health status and obtain any additional testing required based on anesthesia guidelines. We will also identify any potential anesthesia problems or contraindications to the planned procedure. HPI: Vinnie is a 37 year old male who presents for PST. He has been in the bariatric program for overa year. He has history of paraesophageal hernia with Joni's erosions. He is taking protonix daily and states this mostly causes his symptoms of acid reflux. He has completed all the prerequisites for bariatric surgery. He has discussed the procedure with the surgeon and is agreeable to surgical intervention. REVIEW OF SYSTEMS: General: No weight loss, malaise or fevers. Neurological: Negative for: headaches and seizures. Respiratory: Positive for: obstructive sleep apnea and CPAP/BiPAP compliant. Negative for: asthma, COPD, current cough, dyspnea and tobacco use. Cardiovascular: Positive for: DVT/PE (LLE mutiple times) and hypertension Negative for: anticoagulation therapy, arrhythmia, atrial fibrillation, CAD, chest pain and hyperlipidemia. GI: Positive for: GERD Negative for: abdominal pain, dysphagia, nausea and vomiting. : Negative for: frequent urination, hematuria and urgency. Endocrine: Negative for: hyperthyroidism, hypothyroidism and hyperparathyroidism. Hematology: Positive for: anemia and iron deficiency anemia. Negative for: bruises/bleeds easily and chronic anti-coagulation/platelet meds. Oncology: No history of CA metastasis, chemo within 30 days, or radiotherapy within 90 days. No history of oncological symptoms or problems. Psych: Positive for: bipolar disorder. Negative for: anxiety and depression. Musculoskeletal: Negative for joint pain or swelling, back pain or muscle pain. Positive for: back pain. Skin: Negative for lesions, rash and itching. PAST MEDICAL HISTORY Diagnosis Date Back pain extra vertebrae in my lower back. 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 Verdin EGD EGD WITH BIOPSY(S) 06/16/2021 6 cm paraesophageal hernia, Joni's erosions, duodenitis; Dr. Schroeder LITHOTRIPSY Right 11/15/2020 kidney; Dr. Gillette PAST SURGICAL HISTORY OF wisdom teeth SCREENING COLONSCOPY NOT HIGH RISK TONSILLECTOMY AND ADENOIDECTOMY HX FAMILY HISTORY Problem Relation Age of Onset Heart Attack Mother Osteoporosis Mother COPD Mother Heart Father AR, CABG x 4 Social History Tobacco Use Smoking status: Former Packs/day: 1.00 Years: 23.00 Pack years: 23.00 Types: Cigarettes Quit date: 03/29/2021 Years since quittin.5 Smokeless tobacco: Never Vaping Use Vaping Use: current everyday user Substances: THC, CBD, Flavoring Substance Use Topics Alcohol use: Yes Comment: rarely Drug use: Yes Types: Marijuana Comment: Daily (vape) (medical card) Prior to Admission medications as of 10/29/22 0917 Medication Sig Last Dose Taking QUEtiapine (SEROQUEL) 200 mg tablet Take 200 mg by mouth twice daily. Taking Yes pantoprazole DR (PROTONIX) 40 mg tablet Take 1 tablet by mouth once daily. Taking Yes FLUoxetine HCl (PROZAC) 40 mg capsule Take 1 capsule by mouth once daily. Yes OXcarbazepine (TRILEPTAL) 600 mg tablet 300mg qam 900mg qpm Taking Yes gabapentin (NEURONTIN) 300 mg capsule Take 1 capsule by mouth three times daily for 30 days. Patient taking differently: Take 300 mg by mouth three times daily. Once daily, second and third dose as needed Yes acetaminophen (TYLENOL) 500 mg tablet Take 2 tablets by mouth every 6 hours for 7 days. TO START AFTER SURGERY ursodiol (ACTIGALL) 300 mg capsule Take 1 capsule by mouth twice daily. TO START AFTER SURGERY enoxaparin (LOVENOX) 40 mg/0.4 mL Inject 0.4 mL subcutaneously every 12 hours for 28 days. TO STARTAFTER SURGERY diphenhydrAMINE (BENADRYL) 25 mg capsule Take 25 mg by mouth at bedtime as needed. No medication comments found. ALLERGIES Allergen Reactions Cinnamon Swelling Codeine Unknown Pt does not want due to multiple family members allergic Objective PHYSICAL EXAM: General: alert and oriented and healthy appearance. Pertinent negatives noted - not distressed. Skin: normal color, no rash or lesions. HEENT: EOM intact and pupils equal round. Cardiovascular: regular rate and rhythm, normal S1 and S2, no rub, murmurs, or gallop. Respiratory: normal breath sounds, no wheezes or crackles. No chest wall deformity or tenderness. Abdomen: bowel sounds present and soft. Pertinent negatives noted - not tender. Extremities: no deformity, no edema or tenderness, no joint swelling or clubbing. Neurological: normal cognition and motor skills. Gait normal. No weakness or sensory deficit. PAIN ASSESSMENT: VITALS: BP 116/78 Pulse 73 Temp 97.2 Resp 16 Ht 5' 9 (1.75m) Wt 292 lb (132.5kg) SpO2 98% BMI 43.10 kg/(m^2). Diagnostic tests reviewed for today's visit: Lab Value Units Date High Low HB 13.3 g/dL 10/24/2022 17.0 13.0 HCT 40.3 % 10/24/2022 51.0 39.0 WBC 7.23 k/uL 10/24/2022 11.00 3.70 PLT 218 k/uL 10/24/2022 400 150 NA 139 mmol/L 10/24/2022 144 136 K 4.6 mmol/L 10/24/2022 5.1 3.7 GLUC 95 mg/dL 10/24/2022 99 74 BUN 12 mg/dL 10/24/2022 24 9 CREAT 1.05 mg/dL 10/24/2022 1.22 0.73 PTSEC No results within date range. INR No results within date range. APTT No results within date range. ALT No results within date range. AST No results within date range. TBILI No results within date range. TSH No results within date range. No results found for: HBA1C No results found for this or any previous visit (from the past 8760 hour(s)). Recent Results (from the past 32451 hour(s)) ECHO Collection Time: 02/07/22 7:23 AM Impression CONCLUSIONS: - Exam indication: Abnormal ECG - The left ventricle is normal in size. There is no left ventricular hypertrophy. Left ventricular systolic function is normal. EF = 67 5% (2D biplane) Normal left ventricular diastolic function. - The right ventricle is normal in size. Right ventricular systolic function is normal. - There are no significant valvular abnormalities. - The patient has not had a prior CC echocardiographic exam for comparison. * * * Final * * * Assessment Patient has the following medical conditions which may affect tamra-operative course: Essential hypertension Not currently on medication. BP 116/78 Anemia Hx of ALYCIA. Hematology clearance in [facility]. Last H/H- 13.3/40.3- 10/24/2022. TIFFANIE (obstructive sleep apnea) Using cpap/bipap. Instructed to bring with him DOS. Preop examination The patient's medical conditions which may affect perioperative course were addressed in visit today. GERD (gastroesophageal reflux disease) On protonix. DVT (deep venous thrombosis) (HCC) Per pt has had multiple DVT's in [facility]. Not currently on OAC. Elam Activity Status Index: METS: Climb a flight of stairs or walk up a hill (5.50 METs) DASI Score: 5.5 Patient denies any chest pain or undue shortness of breath with the above physical activity. ARISCAT Score: Age: <=50 Preoperative SpO2: >=96% Respiratory infection in the last month: No Preoperative anemia: No Surgical incision: peripheral Duration of surgery: >3 hrs Emergency procedure: No ARISCAT Score: 23 ANESTHESIA FINDINGS: Intubation History: No history of difficult intubation. No abnormal airway history Significant Anesthesia Considerations: none Airway History: No history of difficult airway No abnormal airway history I - PHYSICAL EVALUATION AIRWAY Patient intubated: No. DENTAL Normal dental observations. Dental findings: missing tooth/teeth. Additional comments: + crown. II - ANESTHESIA PLAN Beta Serge Monitoring Plan Post Procedure Analgesic Plan Prepared for Surgery: CONSULTS: The following consults have been initiated at this time: cardiology (in [facility]), hematology(in [facility]) and primary care/internal medicine (in [facility]). Planned Anesthetic: The Following Tests/Procedures Have Been Initiated: No orders of the defined types were placed in this encounter. Implantable Devices: None Assessment/Plan PLAN Diagnosis: Procedure Diagnosis: Morbid obesity (HCC) [E66.01] Planned Procedure: Procedure(s) with comments: XI ROBOTIC LAPAROSCOPIC GASTRIC RESTRICTIVE SURG W/ BYPASS & SHAHAB-EN-Y </= 150CM (N/A) - bariatric eras protocol EGD (N/A) LAPAROSCOPIC BIOPSY LIVER (N/A) TRANSFUSION BLOOD (N/A) The Following Tests/Procedures Have Been Initiated: CBCD, BMP, ALBUMIN and T/S done 10/24/2022. HIBICLENS chlorhexidine gluconate wash given with patient instructions. I spent a total of 40 minutes on the date of the service which included preparing to see the patient, [id number] patient care, completing clinical documentation, performing a medically appropriate examination, and counseling and educating the patient/family/caregiver. Instructions Given to Patient: Instructions located in the after visit summary. Patient given verbal and written preop instructions and voices comprehension and compliance. SIGNATURE: Yu Baez APRN.CNP PATIENT NAME: Vinnie Olivarez DATE: October 29, 2022 TIME: 7:31 AM PAGER/CONTACT #: documented in this encounterK[facility]23 Instructions* Patient Instructions* Yu Baez APRN.CNP - 10/29/2022 7:28 AM EDT PATIENT PREOPERATIVE INSTRUCTIONS No ref. provider found has scheduled you for your procedure at this surgery center: [facility]: [phone], [address] [id number] Please read below carefully for your personalized instructions. Arrive at main entrance of hospital. Follow the sign to the blue elevators, the surgery [facility] will be on the left hand side. DATE: 11/06/2022 - To obtain your ARRIVAL TIME for surgery, call your physician's office the day before your surgery. - If your surgery is scheduled for Saturday, call the Saturday before. Your surgeon's computer processing scheduler will tell you what time to call the office. Please be aware that emergency situations arise, which may delay or change your surgical time. Dietary Restrictions: -Nothing to eat or drink after midnight except small sip of water with approved medications on AVS.Please follow any dietary instructions from the surgeon's office. Medications: AVS was given to patient and specific instructions for each medication reviewed. Please continue totake blood pressure medications including day of surgery. Any oral diabetic medications should be held day of surgery. If you are taking insulin please discuss with prescribing physician for pre op instructions. Blood Thinning Medications: - Stop NSAIDS (Ibuprofen, Advil, Aleve, Motrin, Celebrex, Mobic, naproxen, diclofenac, voltaren etc.) 7 days before surgery, as directed by your surgeon. - If you take any of the following blood thinners, please contact your surgeon and the physician who prescribes it for you in order to get perioperative instructions as soon as possible Blood thinners: Aspirin,Coumadin, Plavix, Eliquis, Pradaxa, Xarelto, Lovenox, Brilinta, Effient, Savaysa, etc. - Stop Vitamin E, fish oil, Ginko, [place]'s Wort, flax seed oil, multivitamins, CBD oil, marijuana and other over the counter herbals and dietary supplements 7 days before surgery. This would not apply to cancer patients who are prescribed Marinol or any other prescription form of marijuana or CBD. Please follow up with the provider that manages your diabetes on how to prepare you for surgery. If you are taking the following medications for Type 2 diabetes: Canagliflozin (INVOKANA), dapagliflozin (FARXIGA), and empagliflozin (JARDIANCE) should each be discontinued at least 3 days before scheduled surgery. Ertugliflozin (STEGLATRO) should be discontinued at least four days before scheduled surgery. Pain Medications: - You may take Tylenol (Acetaminophen) or any of your current prescribed pain medications that do not contain aspirin or NSAIDS as needed. Approved medications can be taken the morning of surgery with a sip of water. If you start any new medications after today's visit, please contact the surgeon's office. Important Reminders: - If you use CPAP/BIPAP, bring the machine with you to the surgery center. - If you are prescribed inhalers for breathing, continue using them AND bring them to the surgery center. - Candy, mints, gum and tobacco products are NOT permitted the morning of surgery. - Hearing aids, dentures and glasses may be worn the morning of surgery. - NO jewelry, body piercings, makeup, hairpins or contacts are to be worn the day of surgery. - NO lotion, creams, powders or deodorants on the skin the day of surgery - You will need to have someone else (Family or friend) drive you home once discharged from the hospital. You cannot take a cab or Uber. You are not allowed to drive yourself home after surgery. We recommend that a responsible person stays with you for the first 24 hours after surgery. -If you have a stimulator, implant or pump that requires a remote please bring the remote with you day of surgery. - testing Anesthesia requires testing on all females under the age of 55 without history of tubal ligation or hysterectomy. - If you are scheduled for a COVID vaccine please make sure it is atleast 72 hours before your scheduled surgery. Surgical scrub given day of PST. Please wash with soap either the night before or morning of surgery. Use directly on your skin or with a washcloth. No sponge or loofa. You can use it everywhere except your face. If you are a joint replacement please wash with soap on both the night before and morning of surgery. If you develop symptoms such as a fever, cold, or flu, or have other changes to your health within TWO DAYS of scheduled surgery or the morning of surgery, please contact the surgery center above. Please confirm with your surgeon's office if you need a COVID test prior to your procedure. [facility]- Visitations are : Visitation hours are from 7 a.m. to 9 p.m. Masks are required. Pre- Surgery-Patients may have up to two visitors at a time. PACU-Patients may have up to 1-2 visitors at a time . Personal Belongings: - Leave ALL valuables and money at home or with family members. - You will need a form of ID and insurance card to check in the morning of surgery. - You will have to wear a hospital gown during your stay but if you wish to bring undergarments forafter surgery you may. Our anesthesia department recommends reading Prepare for Surgery, Heal Faster: A Guide of [employer] by Sweta Smyth prior to surgery. Yu Baez APRN.MARISOL documented in this encounterK[facility]04-11-2023 Miscellaneous Notes* Telephone Encounter - Leyla Small RD - 10/23/2022 2:11 PM EDT Per GLUING PRESSMAN, patient requested to be called tomorrow for review of VLCD, from what the GLUING PRESSMAN had mentioned it seems that he may have more questions and may benefit from a phone call appointment to a lot enough time. Will send MC message today with VLCD information. Leyla Small RD * Telephone Encounter - Loren Panchal-Nurse - 10/23/2022 2:03 PM EDT Called to set up In office or VV F/U W/ RD to review VLCD. No answer ,lvm documented in this encounterK[facility]04-11-2023 History of Present illness Narrative* Debra Crocker APRN.CNP - 10/23/2022 1:00 PM EDT [facility] FOLLOW UP NOTE DISTANCE HEALTH VISIT This Team Access Model visit is a virtual encounter. It required patient- provider interaction for the medical decision making as documented below. Consent was obtained to complete today's distance health visit. I have communicated my name and active licensure. The patient's identity and physical location wereverified at the time of this visit. Either the patient or their legal volunteer patient representative has been informed of the risks and benefits of -- and alternatives to -- treatment through a remote evaluation andconsents to proceed with the evaluation remotely. HPI: Vinnie Olivarez a 37 year old male is scheduled for Lap RYGB with Dr. Schroeder on 11/06/22. Denies recent illnesses, hospitalizations, ED visits Started VLCD today Using CPAP nightly We will complete nicotine test today or tomorrow HISTORY REVIEWED (electronic chart updated): - medical history - medications - allergies PAST MEDICAL HISTORY Diagnosis Date Back pain extra vertebrae in my lower back. 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 Essential hypertension Kidney stones Left adrenal mass ([facility]) Paraesophageal hernia 06/16/2021 6 cm Psychiatric disorder Sleep apnea does not use CPAP Tobacco use disorder Social: Social History Tobacco Use Smoking status: Former Packs/day: 1.00 Years: 23.00 Pack years: 23.00 Types: Cigarettes Quit date: 03/29/2021 Years since quittin.5 Smokeless tobacco: Never Vaping Use Vaping Use: current everyday user Substances: THC, CBD, Flavoring Substance Use Topics Alcohol use: Yes Comment: rarely Drug use: Yes Types: Marijuana Comment: Daily (vape) (medical card) Medications: Current Outpatient Medications Medication Sig folic acid 400 mcg tablet Take 400 mcg by mouth once daily. (Patient not taking: Reported on 09/21/2022) pantoprazole DR (PROTONIX) 40 mg tablet Take 1 tablet by mouth once daily. cholecalciferol, Vitamin D3, (VITAMIN D3) 1,250 mcg (50,000 unit) cap capsule Take 1 capsule by mouth one time a week for 12 doses. Transition to 2,000-4,000 units of Vitamin D OTC after completing 12 weeks (Patient not taking: No sig reported) acetaminophen (TYLENOL EXTRA STRENGTH) 500 mg tablet Take 500 mg by mouth every 8 hours as needed. QUEtiapine XR (SEROQUEL XR) 400 mg 24 hr tablet TAKE 1 TABLET BY MOUTH ONCE DAILY AT BEDTIME FLUoxetine HCl (PROZAC) 40 mg capsule Take 1 capsule by mouth once daily. OXcarbazepine (TRILEPTAL) 600 mg tablet 300mg qam 900mg qpm gabapentin (NEURONTIN) 300 mg capsule Take 1 capsule by mouth three times daily for 30 days. (Patient taking differently: Take 300 mg by mouth three times daily. Once daily, second and third dose as needed) diphenhydrAMINE (BENADRYL) 25 mg capsule Take 25 mg by mouth at bedtime as needed. Current Facility-Administered Medications Medication Dose Route Frequency perflutren lipid microspheres 1.3 mL in NaCl (PF) 0.9% 10 mL injection (DEFINITY) INTRAVENOUS DIRECTED PRN sodium chloride 0.9 % (flush) 10 mL (BD POSIFLUSH) 10 mL INTRAVENOUS DIRECTED PRN REVIEW OF SYSTEMS General: No fatigue or fevers HEENT: Negative for frequent or significant headaches, No changes in hearing or vision, no nose bleeds or other nasal problems PAP Therapy: Using it nightly. GI:No nausea, vomiting, or diarrhea and No heartburn or reflux symptoms Muskuloskeletal: Negative for joint pain or swelling, back pain or muscle pain Skin: Negative for lesions, rash, and itching Psych: Negative for sleep disturbance, mood disorder and recent psychosocial stressors PHYSICAL EXAMINATION There were no vitals taken for this visit. There were no vitals taken for this visit. GENERAL APPEARANCE: Pleasant, interacts appropriately and in no apparent distress. Appropriately groomed, happy, smiling, and interactive SKIN: Skin of normal texture, temperature without rashes/lesions/ulcerations. LUNGS: unlabored on room air negative findings: normal respiratory rate no cough NEURO/PSYCH: Oriented to person, place, time; appropriate insight and judgement. Appropriate affect. Diagnostic Tests Reviewed for Today's Visit Most recent lab and imaging results The plan of treatment for Vinnie Olivarez is Required monthly visits: 11 of 6 months. Patient is interested in: Gastric Bypass w/ PEHR EGD: Paraesophageal hernia - 6 cm; Antral gastritis; Gastric body erosions; Joni's erosions; Duodenitis EGD 04/12/22: Upper GI: n/a RUQ US: NAFLD, Mild gallbladder sludge. No shadowing gallstone or convincing sonographic evidence for acute cholecystitis.No biliary dilation. HIDA: Normal gallbladder functional response/EF is not a typical scintigraphic finding of chronic cholecystitis. Clinical correlation is recommended. Patent CBD. Colonoscopy: 05/10/22 diverticulosis Sleep Study: Known TIFFANIE, uses CPAP CXR:per pulm clearance EKG:per cardiac clearance, 09/12/21 NSR Heart cath 02/08: Normal - no CAD H Pylori negative. Labs: complete, iron def anemia, Vit D def Nicotine use <12 months: Yes--nicotine test ordered--+cotinine (232); will need repeat, [id number]/07/22 Needs another nicotine test 2 weeks before surgery, ordered Tox screen: + marijuana, otherwise negative Marijuana use: Yes--medical marijuana card is scanned in Antiplatelet/anticoagulants: No Immunosuppressive therapy: No Estrogen therapy: No Evaluations Psychology: completed/cleared Nutrition: cleared 05/30/22 Education class: ongoing - scheduled 10/31 Clearances: Cardiac (low- telephone encounter 02/08), Endo (12/27 low), Hematology (x3 DVT, cleared, low 05/07/22), Pulmonary (cleared, telephone encounter 03/05), endocrinology (12/21/21) and PCP(moderate) Risk Calculator: VTE Risk: hx DVT COVID-19 Risk 3 Post-op Medications: Extended Lovenox: Will require, history of DVT x 4 weeks- RX sent Actigall: Yes- RX sent H2 serge/PPI: On PPI - continue omeprazole x 6 months Tylenol: RX sent ASSESSMENT/PLAN: 1. Class 3 severe obesity with serious comorbidity and body mass index (BMI) of 40.0 to 44.9 in adult, unspecified obesity type (HCC) - ICD9: 278.01, V85.41, ICD10: E66.01, Z68.41 (primary diagnosis) Stable - Behavioral intervention and - Medical nutrition therapy with dietitian - started VLCD today - ACETAMINOPHEN 500 MG TABLET - URSODIOL 300 MG CAPSULE - ENOXAPARIN 40 MG/0.4 ML SUBCUTANEOUS SYRINGE - TYPE AND SCREEN,30 DAY 2. Paraesophageal hernia - ICD9: 553.3, ICD10: K44.9 - planned repair with RYGB 3. TIFFANIE on CPAP - ICD9: 327.23, V46.8, ICD10: G47.33, Z99.89 - Bring CPAP to hospital 4. Bipolar affective disorder, remission status unspecified (HCC) - ICD9: 296.80, ICD10: F31.9 - he has switched seroquel to IR as directed 5. Tobacco abuse, in remission - ICD9: 305.1, ICD10: F17.201 - Cessation encouraged. - Physiologic and physical aspects of tobacco addiction as well as strategies for quitting were discussed. - Counseling was given focusing on the harmful effects of this addiction especially given the patient's medical condition(s) which will be worsened because of the chemicals in tobacco. - he is aware to have another nicotine test completed 2 weeks before surgery, which is today PST scheduled 10/29 Education class 10/31 Prescriptions for tylenol, actigall, and lovenox sent to pharmacy All clearances are in Debra Crocker APRN.MARISOL Preoperative instructions discussed with the patient in detail. Discussed stopping all NSAIDs medication, herbal remedies, vitamins 7 days prior to surgery. Reviewed further medications to stop 1 dayprior to surgery, medications to take the morning of surgery if applicable Discussed medications indetail, all questions were answered. Discharge instructions were discussed with the patient. We discussed symptoms and signs that warrant immediate medical attention (rare). We discussed signs and symptoms that warrant a phone call to the office. We discussed that some nausea is expected immediately after surgery, if unable to tolerate oral intake to please contact the office immediately. We discussed that some postoperative pain isexpected, if he were to express severe abdominal pain please contact the office. Received extensive teaching regarding incision care, signs and symptoms of a surgical infection, and reviewed to contact the surgical team for any concerns regarding incisions. Confirmed completed patient education class prior to scheduled surgery. Patient verbally confirms the above information. This information was sent to the patient through [employer] AGchart message as well. I spent a total of 20 minutes on the date of the service which included preparing to see the patient, [id number] patient care, completing clinical documentation, obtaining and/or reviewing separately obtained history, counseling and educating the patient/family/caregiver, ordering medications, digna ts, or procedures, and care coordination (not separately reported). Medical Decision Making: Problems: Moderate: 2+ stable chronic illnesses Data: Unique test(s) ordered: 1 Assessment requiring an independent historian(s) Risk: Minimal: Minimal risk from testing/treatment Moderate: Drug management Medical Decision Making Level: 4 - Moderate * Clementina Doyle - 10/23/2022 11:12 AM EDT Left voicemail for patient to go over chart before virtual Clementina Doyle MA documented in this encounterK[facility]04-11-2023 Instructions* Patient Instructions* Debra Crocker APRN.DYNAMITER - 10/23/2022 12:46 PM EDT Images from the original note were not included. Stop taking NSAID medication, herbal supplements, fish oil, flaxseed oil 7 days prior to surgery because they thin your blood. Tylenol (Acetaminophen) is permitted before surgery. If you have diabetes or high blood pressure you must make an appointment to visit your primary careprovider ONE WEEK after surgery to regulate your medication. BEFORE SURGERY CHECKLIST The evening before surgery, consume 28-32 ounces of Gatorade or 1 boost breeze The day of surgery, consume 20 ounces of Gatorade or 1 boost breeze. This must be completed before you arrive to the surgery center (2 hours before) Continue to consume clear liquids until you arrive to surgery (2 hours before) STOP the following medications 1 day before surgery: none TAKE the following medications the morning of surgery: none 12 hours before surgery shower with anti-bacterial soap, Chlorhexidine. Do not apply lotions, powder, or make-up. Apply clean clothing and bedding after your shower. Please remove your jewelry, including wedding band! ITEMS TO BRING TO THE HOSPITAL: CPAP/BiPAP if you are being treated for sleep apnea. Comfortable walking shoes You will remain in a hospital gown during your stay. You may bring undergarments to wear INCISION CARE Incisions must be kept clean and dry. Proper care of incisions promotes healing, reduces scarring, and reduces the risk of an infection. Follow these instructions for incision care very carefully. Some general tips about caring for incisions include: Always wash your hands before and after touching your incisions. Always inspect your incisions and wounds every day for signs of infection. Clothing: Avoid wearing tight clothes that rub on the incisions. Itching: Incisions may feel itchy as they heal; this is normal. Don't scratch them. If the itchiness gets worse instead of better, call your surgical team. This may be a sign of infection or that stitches are too tight. Lump/bump: You may feel a small lump or bump under your incision; this is normal. If the lump or bump gets worse, call your surgical team Steri-Strips: You may wash or shower with steri-strips in place. Cleanse the area with mild soap and water and gently pat dry with a clean towel or cloth. Do not pull, tug, or rub steri-strips. Tissue glue: The glue should be kept dry and the incisions should be kept out of direct sunlight. The glue will dry out and fall off within five to 10 days. What are the signs of a possible infection in an incision? A wound that has green or yellow drainage A bad odor from the incision Opening of the incision line -- it gets deeper, longer, or wider Redness that goes beyond the basic edge of the incision -- site should show signs of improvement and not getting redder Warmth, hardness, around the incision. Fever (greater than 101 degrees Fahrenheit or 38.4 degrees Celsius), sweating, or chills When is it important to call your surgical team? It is always best to contact your surgical team first if you have any concerns about your incisions. Bleeding that does not stop with pressure If there is any sign of infection (see question, what are the signs of a possible infection ). If you have questions or confusion about incision care instructions [facility] Shahab-en-Y Gastric Bypass WHAT YOU SHOULD KNOW: Shahab-en-Y (jane-gelacio-Y) gastric bypass is a type of weight loss surgery. It is done to help a severely obese (very overweight) person lose weight. It can help you to lose weight in two ways. First, it makes your stomach smaller so that you feel full sooner and cannot eat as much during meals. Second,it causes malabsorption (brt-aj-XCOU-shun). Food passes directly from the stomach pouch into the small intestine. It is digested very quickly and causes your body to not absorb as many calories from the food. However, you may not absorb as many vitamins or minerals either. Right after surgery, you will look and weigh about the same as you did before surgery. It is important to work closely with your team of caregivers to lose weight and to keep the weight off. Weight loss after gastric bypass takes time. It may take 18 to 24 months to reach the weight that is best for you. It is important to follow your caregiver's instructions for the rest of your life. This may include changing your eating habits and lifestyle, taking vitamins and supplements, and going to regular medical appointments. Your home medicines are: Medication daily for stomach acid, vitamins, and remaining medications reviewed by your caregiver Keep a list of your medicines: Keep a written list of the medicines you take, the amounts, and whenand why you take them. Bring the list of your medicines or the pill bottles when you see your caregivers. Do not take any medicines, cnpd-bor-ymgfddx-drugs, vitamins, herbs, or food supplements without first talking to caregivers. Take your medicine as directed: Always take your medicine as directed by caregivers. Call your caregiver if you think your medicines are not helping or if you feel you are having side effects. Do notquit taking your medicines until you discuss it with your caregiver. Acetaminophen: Use acetaminophen to decrease pain or to lower a fever. Do not use aspirin or non-steroidal anti-inflammatory medicine (NSAIDs). Aspirin and NSAIDs may cause stomach irritation, an ulcer, or bleeding. Read labels so that you know the active ingredients in each medicine that you use. Vitamins: Depending on your recovery, your caregiver will give you vitamin supplements. You will need to take these once you go home. Please ask your caregiver if it is okay before starting on vitamin supplements. Follow-up visit information: See schedule given in class. Keep all appointments. Write down any questions you may have. This way you will remember to ask these questions during your next visit. Your 2 week f/u is scheduled on Phone call: You will receive a phone call 24-48 hours after your discharge from the hospital. We will be checking on your progress and making sure that you don't have any questions or concerns. What can I eat after I have gastric bypass surgery? After surgery, you will start with a sugar-free, clear liquid diet. Then you will progress to a sugar- free, full liquid diet. You may feel full after only a few teaspoons of food. You will need to eat a full liquid diet for two (2) weeks before starting a diet of soft foods. Work with your caregiver to decide when your body is ready to move fromliquids to solid foods. In time, your stomach pouch will expand a little bit. Then you should be able to eat about one-half to two-thirds cups of food during each meal. In time, you should also be able to eat regular foods (instead of only soft or liquid foods). Do the following after your gastric b ypass surgery: Drink the right type of liquids. Drink water or sugar-free drinks. These include non-carbonated caffeine-free diet drinks, tea, coffee, and skim or one-percent low-fat milk. Drinking plenty of liquids is important during weight loss. Drink small amounts of liquid often throughout the day. Try to drink at least 8 (8-ounce) cups of liquid each day, which equals 64 ounces. NO ALCOHOLIC BEVERAGES FOR 6 MONTHS. Examples of alcoholic beverages are wine and beer. Take vitamin and mineral supplements as directed by your caregiver. Ask your caregiver, a dietitian, or a registered dietetic technician any questions you may have about your diet plan. A dietitian or registered dietetic technician works with you to find the right diet plan for you. These caregivers can also help to make your new diet a regular part of your life. INCISION CARE Incisions must be kept clean and dry. Proper care of incisions promotes healing, reduces scarring, and reduces the risk of an infection. Follow these instructions for incision care very carefully. Some general tips about caring for incisions include: Always wash your hands before and after touching your incisions. Always inspect your incisions and wounds every day for signs of infection. Clothing: Avoid wearing tight clothes that rub on the incisions. Itching: Incisions may feel itchy as they heal; this is normal. Don't scratch them. If the itchiness gets worse instead of better, call your surgical team. This may be a sign of infection or that stitches are too tight. Lump/bump: You may feel a small lump or bump under your incision; this is normal. If the lump or bump gets worse, call your surgical team Steri-Strips: You may wash or shower with steri-strips in place. Cleanse the area with mild soap and water and gently pat dry with a clean towel or cloth. Do not pull, tug, or rub steri-strips. Tissue glue: The glue should be kept dry and the incisions should be kept out of direct sunlight. The glue will dry out and fall off within five to 10 days. What are the signs of a possible infection in an incision? A wound that has green or yellow drainage A bad odor from the incision Opening of the incision line -- it gets deeper, longer, or wider Redness that goes beyond the basic edge of the incision -- site should show signs of improvement and not getting redder Warmth, hardness, around the incision. Fever (greater than 101 degrees Fahrenheit or 38.4 degrees Celsius), sweating, or chills What self-care instructions should I be aware of? You may shower the day after surgery. Carefully wash the incisions with soap and water. Check your incisions every day. Look for redness, swelling or drainage. If you cannot reach the incision areas,ask someone else to help you, or look in the mirror. If you have a drain coming out of your abdomen(belly), you may gently wash the skin around it. Leave your incisions open to air. Do not put any lotions or ointments on your incisions. Do not miss any medical appointments. It is important to follow your weight loss team's instructions for the rest of your life. This includes changing your eating habits and lifestyle, taking vitamins and supplements, and going to regular medical appointments. If you do these things, you will decrease your risk of problems. Begin walking the night of surgery. The goal is to walk 30 minutes in total every day. You will start by walking for 5 minutes six times a day. As you start to feel stronger you can add your minutes together, walking 7 minutes, then 10 minutes at a stretch, but for a total of 30 minutes per day. Do not try to get until you have lost the weight that you want to lose. Your weight shouldbe stable, which could take as much as 2 years after surgery. Getting while quickly losingweight could hurt you and your unborn baby. If you want to get , talk to your doctor and caregivers about this first. Driving: You may drive in approximately 1 week. You must be off your narcotic pain medications. Sexual [place] (sex): You may have sex in approximately 1 week, as long as you are pain free. Lifting and moving objects: Nothing more than 10 pounds for 6 weeks. Returning to work or school: In approximately 2 - 3 weeks, unless heavy lifting is involved. What is dumping syndrome? Dumping syndrome is a common problem after gastric bypass surgery. If present, it may help your weight loss. This is because it forces you to stay away from high-sugar and high-fat food and drinks. Dumping syndrome is caused when these foods go into the intestines too quickly after a meal. Dumping syndrome may also occur if you drink liquids during a meal. Dumping syndrome may cause you to sweat, or feel faint, weak, and dizzy. It may cause you to feel full, have a fast heart rate, or to have stomach cramps. Dumping syndrome may make you feel sick to your stomach, and have loose bowel movements (BMs). If you think you might have dumping syndrome, talk to your caregiver. You may also try doing the following: Do not drink liquids with your meals. Avoid high-sugar foods such as candy, cookies, and ice cream. Avoid eating high-fat foods such as fried foods, and meats with a lot of fat on them. Eat more raw vegetables, and lean meats such as fish and chicken. Where can I go for information and support? Talk to your caregivers, family and friends about gastric bypass and weight loss. Let them help you before and after surgery. Join a bariatric support group and begin attending meetings before you to go to surgery. This is a group of people who plan to have or have already had weight loss surgery. Ask your caregiver for the names and numbers of support groups near you. For more information about support groups, obesity and weight loss surgery, contactthe following: [employer] [address] [place] [address] www.obesity.org [employer] (ASMBS) [address] [address] www.asmbs.org See the attached support group meeting schedule. SEEK CARE IMMEDIATELY IF: You have sudden chest pain, trouble breathing, or are coughing up blood. Call 911 or 0 (Contracts Attorney) to get to the nearest hospital or clinic. DO NOT DRIVE YOURSELF! You cannot stop throwing up. Call if you feel sick to your stomach and the feeling will not go away. You feel restless, or short of breath. You have pain or pressure in your stomach or back, uncontrolled hiccoughs, or have a very fast heart rate that will not slow down. CALL ) and after hours IF: It is always best to contact your surgical team first if you have any concerns about your incisions. Bleeding that does not stop with pressure If there is any sign of infection If you have questions or confusion about incisions care or instructions You have new swelling or pain in the calf of your leg. You have redness, swelling or drainage (pus) coming from one of your incisions. You have any questions or concerns about your shahab-en-Y gastric bypass or your care. [facility] Miscellaneous Notes* Telephone Encounter - Awilda Freire RN - 09/27/2022 1:52 PM EDT Medical clearance letter faxed to Dr. Kita Freire RN September 27, 2022 1:52 PM documented in [facility] History of Present illness Narrative* Pam Schroeder MD - 09/21/2022 2:19 PM EST BARIATRIC SURGERY NEW PATIENT CONSULTATION HISTORY AND PHYSICAL Date: September 21, 2022 Time: 2:19 PM Vinnie Olivarez is a 37 year old year old male with obesity (Body mass index is 40.67 kg/m .), HTN (now off all meds), bipolar disorder (prozac, trileptal, Seroquel XR, gabapentin), GERD (Protonix), paraesophageal hernia with Joni's erosions, obesity (BMI 41.14 down to 40.67), TIFFANIE (nightly CPAP), DDD of lower spine, hx of DVT (no anticoagulants), and hx kidney stones who presents to the clinic today for his final visit prior to bariatric surgery. He has completed all requirements for bariatric surgery. His weight today is 291 pounds. He states that he quit over a year ago. However, his continues to smoke and she is working to quite smoking as well. He has had three negative nicotine tests - on 05/15/22 and most recently on 08/27/22. He has been cleared by psychology. He underwent cardiac catheterization on 02/07/22 and this was found to be WNL He has TIFFANIE. Is using CPAP nightly. Please see my previous clinic note for his full history: The patient endorses a 18 + year history of acid reflux. The symptoms which are most severe for him are the acid reflux and nocturnal regurgitation (acid and partially digested food). He also endorses belching, sour taste in his mouth, and nocturnal coughing. He also endorses dysphagia with solids which occurs daily. He takes Protonix 40 mg daily and PRN Tums with a decrease in his symptoms. CT scan on 08/11/2020 demonstrates a large hiatal hernia. He underwent EGD in the distant past at [facility]. He was told at that time that he had a sliding hiatal hernia and a gastric ulcer. Social: 1 ppd x 24 years (has now stopped; three negative nicotine tests); sporadic etoh use 1-3 times per year; 1/2 gram marijuana use daily (has medical MJ card currently); denies other illicit drug use. PSHx: left adrenalectomy (), tonsillectomy, lithotripsy (2020) PAST MEDICAL HISTORY Diagnosis Date Back pain extra vertebrae in my lower back. 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 Verdin EGD EGD WITH BIOPSY(S) 06/16/2021 6 cm paraesophageal hernia, Joni's erosions, duodenitis; Dr. Schroeder LITHOTRIPSY Right 11/15/2020 kidney; Dr. Gillette PAST SURGICAL HISTORY OF wisdom teeth SCREENING COLONSCOPY NOT HIGH RISK TONSILLECTOMY AND ADENOIDECTOMY HX FAMILY HISTORY Problem Relation Age of Onset Heart Attack Mother Osteoporosis Mother COPD Mother Heart Father AR, CABG x 4 Social History Tobacco Use Smoking status: Former Packs/day: 1.00 Years: 23.00 Pack years: 23.00 Types: Cigarettes Quit date: 03/29/2021 Years since quittin.4 Smokeless tobacco: Never Vaping Use Vaping Use: current everyday user Substances: THC, CBD, Flavoring Substance Use Topics Alcohol use: Yes Comment: rarely Drug use: Yes Types: Marijuana Comment: Daily (vape) (medical card) Current Outpatient Medications Medication Sig pantoprazole DR (PROTONIX) 40 mg tablet Take 1 tablet by mouth once daily. acetaminophen (TYLENOL EXTRA STRENGTH) 500 mg tablet Take 500 mg by mouth every 8 hours as needed. QUEtiapine XR (SEROQUEL XR) 400 mg 24 hr tablet TAKE 1 TABLET BY MOUTH ONCE DAILY AT BEDTIME FLUoxetine HCl (PROZAC) 40 mg capsule Take 1 capsule by mouth once daily. OXcarbazepine (TRILEPTAL) 600 mg tablet 300mg qam 900mg qpm gabapentin (NEURONTIN) 300 mg capsule Take 1 capsule by mouth three times daily for 30 days. (Patient taking differently: Take 300 mg by mouth three times daily. Once daily, second and third dose as needed) diphenhydrAMINE (BENADRYL) 25 mg capsule Take 25 mg by mouth at bedtime as needed. folic acid 400 mcg tablet Take 400 mcg by mouth once daily. (Patient not taking: Reported on 09/21/2022) cholecalciferol, Vitamin D3, (VITAMIN D3) 1,250 mcg (50,000 unit) cap capsule Take 1 capsule by mouth one time a week for 12 doses. Transition to 2,000-4,000 units of Vitamin D OTC after completing 12 weeks (Patient not taking: No sig reported) Current Facility-Administered Medications Medication Dose Route Frequency perflutren lipid microspheres 1.3 mL in NaCl (PF) 0.9% 10 mL injection (DEFINITY) INTRAVENOUS DIRECTED PRN sodium chloride 0.9 % (flush) 10 mL (BD POSIFLUSH) 10 mL INTRAVENOUS DIRECTED PRN ALLERGIES Allergen Reactions Cinnamon Swelling Codeine Unknown Pt does not want due to multiple family members allergic ROS Physical Exam Vitals reviewed. Constitutional: Appearance: Normal appearance. He is obese. HENT: Head: Normocephalic and atraumatic. Eyes: Extraocular Movements: Extraocular movements intact. Conjunctiva/sclera: Conjunctivae normal. Pupils: Pupils are equal, round, and reactive to light. Cardiovascular: Rate and Rhythm: Normal rate. Pulmonary: Effort: Pulmonary effort is normal. No respiratory distress. Skin: General: Skin is warm and dry. Coloration: Skin is not jaundiced or pale. Neurological: General: No focal deficit present. Mental Status: He is alert and oriented to person, place, and time. Psychiatric: Mood and Affect: Mood normal. Behavior: Behavior normal. Required monthly visits: 11 of 6 months. Patient is interested in: Gastric Bypass w/ PEHR EGD: Paraesophageal hernia - 6 cm; Antral gastritis; Gastric body erosions; Joni's erosions; Duodenitis EGD 04/12/22: Upper GI: n/a RUQ US: NAFLD, Mild gallbladder sludge. No shadowing gallstone or convincing sonographic evidence for acute cholecystitis.No biliary dilation. HIDA: Normal gallbladder functional response/EF is not a typical scintigraphic finding of chronic cholecystitis. Clinical correlation is recommended. Patent CBD. Colonoscopy: 05/10/22 diverticulosis Sleep Study: Known TIFFANIE, uses CPAP CXR:per pulm clearance EKG:per cardiac clearance, 09/12/21 NSR Heart cath 02/08: Normal - no CAD H Pylori negative. Labs: complete, iron def anemia, Vit D def Nicotine use <12 months: Yes--nicotine test ordered--+cotinine (232); will need repeat, drsouvdd40/07/22 Tox screen: + marijuana, otherwise negative Marijuana use: Yes--medical marijuana card is scanned in Antiplatelet/anticoagulants: No Immunosuppressive therapy: No Estrogen therapy: No Evaluations Psychology: completed/cleared Nutrition: cleared 05/30/22 Education class: ongoing Clearances: Cardiac (low- telephone encounter 02/08), Endo (12/27 low), Hematology (x3 DVT, cleared, low 05/07/22), Pulmonary (cleared, telephone encounter 03/05), endocrinology (12/21/21) and PCP Risk Calculator: VTE Risk: hx DVT COVID-19 Risk 3 Post-op Medications: Extended Lovenox: Will require, history of DVT x 4 weeks Actigall: Yes H2 serge/PPI: On PPI - continue omeprazole x 6 months Plan IMPRESSION: Vinnie Olivarez is a 37 year old year old male who presents for consideration of bariatric surgery (Body mass index is 40.67 kg/m .). He does meet the criteria for a surgical weight loss procedure according to NIH guidelines. The plan of treatment for Vinnie is to continue with the consultations and tests ordered today in hopes of qualifying for pre-operative clearance for bariatric surgery. He is interested in: Shahab-En-Y Gastric Bypass with paraesophageal hernia repair ASSESSMENT/PLAN: 1. Class 3 severe obesity with serious comorbidity and body mass index (BMI) of 40.0 to 44.9 in adult, unspecified obesity type (HCC) - ICD9: 278.01, V85.41, ICD10: E66.01, Z68.41 (primary diagnosis) - Today in clinic we reviewed the potential risks and complications associated with RYGB and PEHR with biologic mesh placement. We reviewed both the informed consent form and the risk education packet. All of the patient's questions and concerns were addressed to the best of my ability. I specifically discussed with the patient my concerns of the high risk of marginal ulcer with NSAID use, nicotine and second hand smoke exposure due to his 's continued nicotine use. He will need another nicotine test 2 weeks prior to surgery. He has stopped all NSAID use. - I encouraged the patient to reach out via phone call or [email or web address] message if any questions or concerns were to arise between now and the day of surgery. - They are vaccinated against COVID. They were advised that they will require a COVID test prior tosurgery. They were also advised to inform our office if they were to contract COVID between now andthe day of surgery as this could potentially increase their risk of DVT and PE and they may requireprolonged VTE prophylaxis after surgery. - Due to the Covid-19 pandemic this surgical case had been delayed/postponed. At this point in timeelective surgical cases are being restarted based on recommendations of the Governor of the [facility]. We have extensively discussed the nature of these circumstances with the patient and have informed them of the risks associated with bariatric surgery including but not limited to postoperative bleeding, infection, deep vein thrombosis, pulmonary embolism, dehydration/vitamin deficiency/malnutrition, pneumonia, myocardial infarction, marginal ulceration, and bowel obstruction. Although we will perform appropriate precautions to minimize patient exposure and risk, by undergoing surgery during the Covid-19 pandemic, the patient understands and accepts the unpredictable nature of the Covid-19 virus and the possibility of risks specific to the Covid- 19 virus including but not limited to pneumonia, respiratory failure, sepsis, blood clots in different organs, heart attack, stroke, multiple organ failure, and . All of these risk factors are especially heightened in patients with obesity. The patient understands and accepts these risks prior to proceeding with bariatric surgery. - He has a history of adrenalectomy, so this will potentially increase the risk of adhesion and increased operative time. - NICOTINE & METAB, UR - CONSULT TO PRE-SURGICAL TESTING (AG) - CBC + DIFF - BASIC METABOLIC PNL - ALBUMIN BLD 2. 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 Will plan to repair with biologic mesh at the time of RYGB. - Continue PPI for now and will continue for 6 months after surgery 3. Gastroesophageal reflux disease without esophagitis - ICD9: 530.81, ICD10: K21.9 - Discussed lifestyle modifications including losing weight, limiting caffeine, no meals three hours before sleep, and head of bed elevation - Continue treatment with omeprazole 40 mg daily 4. NAFLD (nonalcoholic fatty liver disease) - ICD9: 571.8, ICD10: K76.0 - Continue healthy lifestyle and dietary modifications 5. TIFFANIE on CPAP - ICD9: 327.23, V46.8, ICD10: G47.33, Z99.89 - Continue nightly use. Bring machine to hospital on day of surgery 6. Tobacco abuse, in remission - ICD9: 305.1, ICD10: F17.201 - Cessation encouraged. - Physiologic and physical aspects of tobacco addiction as well as strategies for quitting were discussed. - Counseling was given focusing on the harmful effects of this addiction especially given the patient's medical condition(s) which will be worsened because of the chemicals in tobacco. - Has stopped smoking, but his still smokes. Nicotine tests have been negative - Will need one last nicotine test 2 weeks prior to surgery 7. Bipolar affective disorder, remission status unspecified (HCC) - ICD9: 296.80, ICD10: F31.9 - Continue all medications, but Seroquel XR must be changed to immediate release or dosage adjustment Nutrition Counseling Practice these: - Eat 3 meals daily--can use approved/recommended protein shake as 1 meal replacement (should be <200 calories, 20-30g protein, <5g added sugar) - Keep a food journal 5-7x/week (consider General Compression or [employer]) and demonstrate meeting protein goal (60-90g protein for females, 70-105g protein for males)- Lean meats, fish, low fat dairy - cottage cheese, Nigerian yogurt, light yogurt, cheese, ricotta cheese, nuts, peanut butter, beans/legumes. Eat protein first at all meals. and 64oz of caffeine-free, carbonation-free fluids at least 5 days per week - engage in formal, planned exercise 5x/week for 30 minutes of cardiovascular activity OR 150+ minutes of cardiovascular activity per week - eliminate all caffeine, carbonation, alcohol and sugar-containing beverages from diet --consider sugar-free drink mixes, water, decaf coffee and tea - Separate eating and drinking by 30 minutes - Chew your food 20-30x per bite - Sip beverages slowly--no guzzling or gulping Information regarding probable and potential postoperative complications, dietary and medical postoperative limitations, and potential cosmetic sequelae has been received by individual. Pam Schroeder MD Advanced Laparoscopic and Bariatric Surgery Medical Decision Making: Problems: Moderate: 2+ stable chronic illnesses Data: Unique test result(s) reviewed: 3+ Unique test(s) ordered: 3+ Discussed management or test w/ external physician/QHCP/source Risk: High: Decision on elective major surgery w/ risk factors Medical Decision Making Level: 5 - High * Awilda Freire RN - 09/21/2022 2:11 PM EST Patient given written material for VLCD and post op education. Patient advised to contact his PCP for medical clearance appointment. I will send the letter. Awilda Freire RN September 21, 2022 2:12 PM documented in this encounterKet[facility]01-31-2023 Miscellaneous Notes* Telephone Encounter - Loren Panchal-Nurse - 08/14/2022 4:31 PM EST Schedule with GLUING PRESSMAN in August.- per RD Mo #5-RED/ELDA/CARESOURCE/6 MONTHS No answer, lvm documented in this encounterKettering Health [facility]01-31-2023 History of Present illness Narrative* Madhuri Singh, RD - 08/14/2022 3:49 PM EST Vinnie Olivarez--Visit conducted via agencyQ (audio and visual) d/t COVID 19 Education Class: Patient will receive instruction regarding healthy food choices and eating behaviors identified as optimal when preparing for surgery, losing weight after surgery, and maintaining weight loss long-term. Patient will also receive instruction regarding the Bariatric Full Liquid diet following surgery and optimal post-operative high-protein supplement choices. Education class to be completed prior to surgery. Behaviors Accomplished: Visit # 10 Date: 08/14/2022 Weight reported: unsure of what his current weight is. Eating 3 meals/one snack Choose healthy foods Daily multivitamin Drink between meals Sip beverages slowly Eat slowly,chew well No high fat/fast foods 24 hour diet recall Breakfast: zeina ebenezer breakfast sandwich-sausage/egg/cheese/croissant. Lunch: 6 oz chicken breast sandwich, bbq sauce Dinner: pizza homemade--pepperoni/sausage/cheese Snacks: sugar free reeses Fluids (liquid intake-oz): yesterday: 4--17 oz bottles water Alcohol/Caffeine/Sugar/Carbonation Beverages in Diet: alcohol is rare, minimal carbonation. Small amount of caffeine from tea-70 mg caffeine--1 daily x 5 days/week. Protein (grams/day): yesterday: 77 grams Exercise: 30 minutes walking. Written information provided and reviewed: As noted. Needs 45-60 mg iron post op. Pt to follow up on rx for folic acid. Preop patient currently in month #10 a supervised diet and exercise. Previous cleared by RD in April 2022. Was seen by dietitian today to review consent diet information. Follow-up on patient's adherence to preop nutrition requirements, overall he is doing well. Due to his work schedule, he has not been maintaining a food journal nor has he been calculating his daily protein intake. He denies any issues with meeting his fluid goal. However, is drinking approximately 70 mg of caffeine per day.He is aware that he must resume a food journal after surgery and eliminate caffeine prior to starting very low calorie diet. He states that he had a history of iron deficiency, but was prescribed folic acid. Upon further review of patient's chart, I do not see a folate deficiency. Encouraged the patient to follow-up with PCP. Since he does have a history of iron deficiency, recommend 45 to 60 mg of iron per day postop. The patient meets NIH guidelines for weight loss surgery and has been thoroughly evaluated and educated on good dietary practices. Patient is capable of following these guidelines pre-and post-surgically. From nutrition standpoint, the patient is cleared for weight loss surgery. No additional visits with nutrition are required at this time; however, pt is welcome to return as needed/desired before or after surgery. *All requirements have been met. Additional requirements may arise in course of treatment.* THIS PATIENT RECEIVED INSTRUCTIONS FOR VLCD, ERAS, AND DISCHARGE DIET INFORMATION (PHASE I/II DIET)AND POST-OP VITAMIN SCHEDULE WITH PLAN TO CONSENT W/ SURGEON AT FUTURE APPOINTMENT-WILL RECEIVE ENSURE CLEAR BEVERAGES AT CONSENT APPOINTMENT -VLCD, ERAS, Phase I/II diet, post-op vitamin schedule--via [email or web address] Plan: follow up post op Total time in direct patient contact = 27 min. Greater than 50% of the time was spent in counselingand/or coordination of care. Madhuri Singh RD This note was generated using voice recognition technology and may contain grammatical errors. documented in this encounterKettering [facility]12-16-2022 Miscellaneous Notes* Telephone Encounter - Loren Panchal-Nurse - 06/29/2022 2:57 PM EST Called to schedule 4 Wk F/U with GLUING PRESSMAN & RD No answer, LVM Mo #5-HOWIE/ELDA/KENN/6 MONTHS documented in this encounterKettering Health [facility]12-16-2022 History of Present illness Narrative* Jessica Le APRN.MARISOL - 06/29/2022 1:30 PM EST BARIATRIC SURGERY CLINIC FOLLOW UP NOTE DISTANCE HEALTH VISIT This Team Access Model visit is a virtual encounter. It required patient- provider interaction for the medical decision making as documented below. Consent was obtained to complete today's distance health visit. HPI: Vinnie Olivarez a 36 year old male for presents for medically supervised weight loss treatment of his obesity related co morbidities. This individual presents for month 9 of 6 required visits completed as a virtual telephone encounter Vinnie Olivarez weight calculation is 279 lbs Vinnie has been doing well since his last visit. He denies complaints today. Denies recent hospitalizes, illnesses, or ED visits. Patient had a diagnostic colonoscopy due to iron deficiency anemia completed on 06/10/[address] Schroeder. Colonoscopy showed diverticulosis. Repeat nicotine test 05/15/2022 is negative. He previously had a nicotine test that showed elevation in Continine - which was indicative of his exposure to second hand smoke He has TIFFANIE. Is using CPAP nightly. He is doing well meeting his fluid and protein goals. He has GERD. He denies symptoms of acid reflux, difficulty swallowing, foul taste in mouth or regurgitation. His reflux is controlled with pantoprazole. He denies n/v/abd pain, diarrhea, constipation. Patient still needs psychology clearance. To meet psychology clearance he needed to be nicotine free (negative, per repeat test 05/21/22) and establish with an individual counselor. He was recommended to go to [facility]. He reached out and is still on a waiting list. In the mean time, he is going to follow up with a previous counselor at [facility]. HISTORY REVIEWED (electronic chart updated): - medical history - medications - allergies PAST MEDICAL HISTORY Diagnosis Date Back pain extra vertebrae in my lower back. Bipolar disorder (HCC) Class 3 severe obesity due to excess calories with serious comorbidity and body mass index (BMI) of40.0 to 44.9 in adult (HCC) DVT (deep venous thrombosis) ([facility]) RLE, multiple per patient but no detention anticoag Essential hypertension Kidney stones Left adrenal mass ([facility]) Paraesophageal hernia 06/16/2021 6 cm Psychiatric disorder Sleep apnea does not use CPAP Tobacco use disorder Social: Social History Tobacco Use Smoking status: Former Packs/day: 1.00 Years: 23.00 Pack years: 23.00 Types: Cigarettes Quit date: 03/29/2021 Years since quittin.2 Smokeless tobacco: Never Vaping Use Vaping Use: current everyday user Substances: THC, CBD, Flavoring Substance Use Topics Alcohol use: Yes Comment: rarely Drug use: Yes Types: Marijuana Comment: Daily (vape) (medical card) Medications: Current Outpatient Medications Medication Sig folic acid 400 mcg tablet Take 400 mcg by mouth once daily. pantoprazole DR (PROTONIX) 40 mg tablet Take 1 tablet by mouth once daily. cholecalciferol, Vitamin D3, (VITAMIN D3) 1,250 mcg (50,000 unit) cap capsule Take 1 capsule by mouth one time a week for 12 doses. Transition to 2,000-4,000 units of Vitamin D OTC after completing 12 weeks (Patient not taking: No sig reported) acetaminophen (TYLENOL EXTRA STRENGTH) 500 mg tablet Take 500 mg by mouth every 8 hours as needed. QUEtiapine XR (SEROQUEL XR) 400 mg 24 hr tablet TAKE 1 TABLET BY MOUTH ONCE DAILY AT BEDTIME FLUoxetine HCl (PROZAC) 40 mg capsule Take 1 capsule by mouth once daily. OXcarbazepine (TRILEPTAL) 600 mg tablet 300mg qam 900mg qpm gabapentin (NEURONTIN) 300 mg capsule Take 1 capsule by mouth three times daily for 30 days. (Patient taking differently: Take 300 mg by mouth three times daily. Once daily, second and third dose as needed) diphenhydrAMINE (BENADRYL) 25 mg capsule Take 25 mg by mouth at bedtime as needed. Current Facility-Administered Medications Medication Dose Route Frequency perflutren lipid microspheres 1.3 mL in NaCl (PF) 0.9% 10 mL injection (DEFINITY) INTRAVENOUS DIRECTED PRN sodium chloride 0.9 % (flush) 10 mL (BD POSIFLUSH) 10 mL INTRAVENOUS DIRECTED PRN REVIEW OF SYSTEMS General: No fatigue or fevers HEENT: Negative for frequent or significant headaches, No changes in hearing or vision, no nose bleeds or other nasal problems PAP Therapy: Using it nightly. GI:No nausea, vomiting, or diarrhea and No heartburn or reflux symptoms Muskuloskeletal: Negative for joint pain or swelling, back pain or muscle pain Skin: Negative for lesions, rash, and itching Psych: Negative for sleep disturbance, mood disorder and recent psychosocial stressors PHYSICAL EXAMINATION GENERAL APPEARANCE: Pleasant, interacts appropriately and in no apparent distress. Appropriately groomed, happy, smiling, and interactive SKIN: Skin of normal texture, temperature without rashes/lesions/ulcerations. LUNGS: unlabored on room air negative findings: normal respiratory rate no cough NEURO/PSYCH: Oriented to person, place, time; appropriate insight and judgement. Appropriate affect. Diagnostic Tests Reviewed for Today's Visit Most recent lab and imaging results The plan of treatment for Vinnie Olivarez is Further Work-up: Required monthly visits: 9 of 6 months. Patient is interested in: Gastric Bypass w/ PEHR EGD: Paraesophageal hernia - 6 cm; Antral gastritis; Gastric body erosions; Joni's erosions; Duodenitis EGD 04/12/22: 1. Severe obesity 2. Paraesophageal hernia - 8 cm 3. History of Joni's erosions - persistent 4. History of gastric erosions and duodenitis - resolved 5. GERD C-scope: scheduled 05/10 Upper GI: n/a RUQ US: NAFLD, Mild gallbladder sludge. No shadowing gallstone or convincing sonographic evidence for acute cholecystitis.No biliary dilation. HIDA: Normal gallbladder functional response/EF is not a typical scintigraphic finding of chronic cholecystitis. Clinical correlation is recommended. Patent CBD. Colonoscopy: 05/10/22 diverticulosis Sleep Study: Known TIFFANIE, uses CPAP CXR:per pulm clearance EKG:per cardiac clearance, 09/12/21 NSR Heart cath 02/08: Normal - no CAD H Pylori negative. Labs: complete, iron def anemia, Vit D def Nicotine use <12 months: Yes--nicotine test ordered--+cotinine (232); will need repeat, [id number]/07/22 Tox screen: + marijuana, otherwise negative Marijuana use: Yes--medical marijuana card is scanned in Antiplatelet/anticoagulants: No Immunosuppressive therapy: No Estrogen therapy: No Evaluations Psychology: ongoing - pending repeat nicotine test (completed, negative) and establishing with counselor (rahull needs to do this) Nutrition: cleared 05/30/22 Education class: ongoing Clearances: Cardiac (low- telephone encounter 02/08), Endo (12/27 low), Hematology (x3 DVT, cleared, low 05/07/22), Pulmonary (cleared, telephone encounter 03/05), endocrinology (12/21/21) and PCP Risk Calculator: VTE Risk: hx DVT COVID-19 Risk 3 Post-op Medications: Extended Lovenox: Will require, history of DVT Actigall: Yes H2 serge/PPI: On PPI Total time in direct patient contact = 20 min. Greater than 50% of the time was spent in counselingand/or coordination of care. This note was generated using voice recognition technology and may contain grammatical errors. ASSESSMENT/PLAN: 1. Class 2 obesity with body mass index (BMI) of 38.0 to 38.9 in adult, unspecified obesity type, unspecified whether serious comorbidity present - ICD9: 278.00, V85.38, ICD10: E66.9, Z68.38 (primarydiagnosis) Stable - Behavioral intervention - Patient has met all clearance except psychology. He still needs to establish with outside counselor to meet this clearance. -Recent nicotine test is negative. Nutrition Counseling Practice these: - Eat 3 meals daily--can use approved/recommended protein shake as 1 meal replacement (should be <200 calories, 20-30g protein, <5g added sugar) - Keep a food journal 5-7x/week (consider General Compression or [employer]) and demonstrate meeting protein goal (60-90g protein for females, 70-105g protein for males)- Lean meats, fish, low fat dairy - cottage cheese, Nigerian yogurt, light yogurt, cheese, ricotta cheese, nuts, peanut butter, beans/legumes. Eat protein first at all meals. and 64oz of caffeine-free, carbonation-free fluids at least 5 days per week - engage in formal, planned exercise 5x/week for 30 minutes of cardiovascular activity OR 150+ minutes of cardiovascular activity per week - eliminate all caffeine, carbonation, alcohol and sugar-containing beverages from diet --consider sugar-free drink mixes, water, decaf coffee and tea - Separate eating and drinking by 30 minutes - Chew your food 20-30x per bite - Sip beverages slowly--no guzzling or gulping 2. Paraesophageal hernia - ICD9: 553.3, ICD10: K44.9 -Planned repair with RYGB -Diverticulosis, Per colonoscopy 05/10/22 3. Gastroesophageal reflux disease, unspecified whether esophagitis present - ICD9: 530.81, ICD10: K21.9 - Discussed lifestyle modifications including losing weight, limiting caffeine, no meals three hours before sleep, and head of bed elevation - Sx controlled with PPI 4. Tobacco abuse, in remission - ICD9: 305.1, ICD10: F17.201 - Cessation encouraged. - Physiologic and physical aspects of tobacco addiction as well as strategies for quitting were discussed. - Counseling was given focusing on the harmful effects of this addiction especially given the patient's medical condition(s) which will be worsened because of the chemicals in tobacco. -Most recent nicotine test negative, 05/21/22 Patient needed to be nicotine free and establish with counselor to get cleared by psychology. Nicotine test is completed and negative. He still needs to establish with counselor. He is on waiting list with [facility]. In the mean time, he is also go reach out to his previous counselor at [facility]. He will send us a msg after doing this. I told him once he was set up, we will reach out to Dr. Reyes for clearance; however, he may need to see psychology here at [facility] due to Dr. Boudreaux's going to [facility]. Colonoscopy is completed. He is cleared by hematology (low, 05/07/22), nutrition (05/30/22), cardiology (low- telephone encounter 02/08), Endo (12/27 low), Pulmonary (cleared, telephone encounter 03/05) , endocrinology (12/21/21). He still needs clearance from psychology and PCP . Follow-up with GLUING PRESSMAN next month to review testing results and clearance status. If he is cleared by psychology this could be changed to consent visit with Dr. Schroeder. Jessica Le APRN.CNP Medical Decision Making: Problems: Moderate: 2+ stable chronic illnesses Data: Unique test result(s) reviewed: 1 Independent interpretation of test from other physician/QHCP Risk: Minimal: Minimal risk from testing/treatment Medical Decision Making Level: 4 - Moderate documented in this encounterKettering [facility]12-01-2022 History of Present illness Narrative* Alfreda Singh MA - 06/14/2022 7:48 AM EST The appointment was cancelled for this patient. Alfreda Singh MA documented in this encounterKettering Health Dayton11-10-2022 Miscellaneous Notes* Telephone Encounter - Loren Panchal-Nurse - 05/24/2022 11:13 AM EST Called to reschedule GLUING PRESSMAN & RD visit , phone goes straight to [facility] month#5-HOWIE/ELDA/KENN/6 MONTHS documented in this encounterKettering Health Dayton10-27-2022 Surgical operation note* Operative Report - Pam Schroeder MD - 05/10/2022 2:09 PM EDT OPERATIVE/PROCEDURE REPORT LOG ID: [id number] Surgery/Procedure Date: Incision/Procedure Start Time: 2:21 PM Incision Close/Procedure End Time: 2:49 PM Surgeon(s)/Proceduralist(s) and Net Developer Architect(s): Surgeon(s) and Role: * Pam Schroeder MD No Additional Staff PREOPERATIVE DIAGNOSIS: 1. Need for diagnostic colonoscopy due to iron deficiency anemia POSTOPERATIVE DIAGNOSIS: Diverticulosis COMPLICATIONS: None. Procedure(s): 1. Diagnostic Colonoscopy due to iron deficiency anemia Anesthesia: * No anesthesia type entered * MAC by Anesthesiology without complications Operative Findings: Screening colonoscopy demonstrated diverticulosis of the descending colon Operative Indication: Vinnie Olivarez is a 36 year old male who presents for diagnostic colonoscopy. We discussed the risks, benefits, alternatives, and potential complications, and the patient agreed to proceed. Of note, he admitted to eating bread yesterday morning. Prior to the last planned colonoscopy he had eaten solid food the day prior to colonoscopy and that was why the colonoscopy was cancelled and rescheduled. Procedure Details: The patient was brought to the endoscopic suite in stable condition. The preprocedural checklist was completed to the satisfaction of the entire team and verified with the patient. We had previously completed the consent process after discussing the risks and benefits of the procedure, which included, but were not limited to, the risk of hemorrhage, need for blood transfusion, and the possibilityof perforation. The patient was placed in the left lateral decubitus position. Once he was induced by Anesthesia and appropriately sedated a digital rectal exam was performed and this was normal. The colonoscope wasintroduced into the rectum and advanced to the cecum. The procedure was technically difficult due to his body habitus and areas of particular matter in the cecum. The cecum was identified by the appendiceal orifice and the ileocecal valve. The scope was then slowly withdrawn and the mucosal folds examined in detail. The bowel preparation was adequate with scattered areas of particulate matter andthe total withdrawal time was greater than 10 minutes. Due to the patient's body habitus total colonic insufflation was very difficult - for this reason we switched to air insufflation in attempts completely insufflate the colonic folds. There were no abnormalities in the cecum, ascending colon, transverse colon, descending colon, sigmoid or rectum -aside from rare scattered diverticula in the descending colon. Retroflexion was performed and this showed no abnormality. The scope was then withdrawn. The patient tolerated the procedures very well and was returned to recovery room in stable condition. Estimated Blood Loss: minimal Specimens: none Implantable Devices: None Drains: None Complications: None I performed the procedure with assistance. SIGNATURE: Pam Schroeder MD PATIENT NAME: Vinnie Olivarez DATE: May 10, 2022 TIME: 2:57 PM PAGER/CONTACT #: documented in this encounterKettering Health Dayton10-27-2022 History of Present illness Narrative* Saumya Tam APRN.CNP - 05/10/2022 1:30 PM EDT H&P done 05/07/[address] Quintero. documented in this encounterKettering Health Dayton10-24-2022 Miscellaneous Notes* Telephone Encounter - Awilda Freire RN - 05/07/2022 11:29 AM EDT Hematology clearance letter faxed to Dr. Ingrid Freire RN May 07, 2022 11:37 AM documented in this encounterKettering Health Dayton10-24-2022 History of Present illness Narrative* Raj Quintero, DO - 05/07/2022 9:36 AM EDT HEMATOLOGY/ONCOLOGY INITIAL CONSULT Vinnie Olivarez 1985 May 07, 2022 Referred by: Pam Schroeder [address] [facility] [address] [facility] [id number] Diagnosis: ALYCIA CC: I need clearance for my bariatric surgery HPI: Vinnie Olivarez is a 36 year old male w/ PMHx ALYCIA, obesity, hiatal hernia, chronic gastritis whopresents for ALYCIA. In review of records, patient has had known paraesophageal hernia since he was found to be anemic with iron deficiency over a year ago. Has had significant gastritis and duodenitis.Has had multiple scopes in the past. Currently undergoing weight loss eval for possible bariatric surgery. Started taking PO iron a few months ago. Denied melena. Thinks he may have seen some blood on the rim of his Bms but he notes he is partially color blind so not fully sure. PAST MEDICAL HISTORY Diagnosis Date Back pain extra vertebrae in my lower back. Bipolar disorder (HCC) Class 3 severe obesity due to excess calories with serious comorbidity and body mass index (BMI) of40.0 to 44.9 in adult (HCC) DVT (deep venous thrombosis) (HCC) RLE, multiple per patient but no detention anticoag Essential hypertension Kidney stones Left adrenal mass (HCC) Paraesophageal hernia 06/16/2021 6 cm Psychiatric disorder Sleep apnea does not use CPAP Tobacco use disorder PAST SURGICAL HISTORY Procedure Laterality Date ADRENALECTOMY Left 08/29/2020 Dr. Verdin EGD EGD WITH BIOPSY(S) 06/16/2021 6 cm paraesophageal hernia, Joni's erosions, duodenitis; Dr. Schroeder LITHOTRIPSY Right 11/15/2020 kidney; Dr. Gillette PAST SURGICAL HISTORY OF wisdom teeth SCREENING COLONSCOPY NOT HIGH RISK TONSILLECTOMY AND ADENOIDECTOMY HX Current Outpatient Medications Medication Sig Dispense Refill pantoprazole DR (PROTONIX) 40 mg tablet Take 1 tablet by mouth once daily. 90 tablet 3 acetaminophen (TYLENOL EXTRA STRENGTH) 500 mg tablet Take 500 mg by mouth every 8 hours as needed. QUEtiapine XR (SEROQUEL XR) 400 mg 24 hr tablet TAKE 1 TABLET BY MOUTH ONCE DAILY AT BEDTIME 30 tablet 0 OXcarbazepine (TRILEPTAL) 600 mg tablet 300mg qam 900mg qpm 90 tablet 0 diphenhydrAMINE (BENADRYL) 25 mg capsule Take 25 mg by mouth at bedtime as needed. cholecalciferol, Vitamin D3, (VITAMIN D3) 1,250 mcg (50,000 unit) cap capsule Take 1 capsule by mouth one time a week for 12 doses. Transition to 2,000-4,000 units of Vitamin D OTC after completing 12 weeks (Patient not taking: No sig reported) 12 capsule 0 FLUoxetine HCl (PROZAC) 40 mg capsule Take 1 capsule by mouth once daily. 30 capsule 0 gabapentin (NEURONTIN) 300 mg capsule Take 1 capsule by mouth three times daily for 30 days. (Patient taking differently: Take 300 mg by mouth three times daily. Once daily, second and third dose as needed) 90 capsule 0 Current Facility-Administered Medications Medication Dose Route Frequency Provider Last Rate Last Admin perflutren lipid microspheres 1.3 mL in NaCl (PF) 0.9% 10 mL injection (DEFINITY) INTRAVENOUS DIRECTED PRN Franklyn Coyne MD sodium chloride 0.9 % (flush) 10 mL (BD POSIFLUSH) 10 mL INTRAVENOUS DIRECTED PRN Franklyn Coyne MD diphenhydrAMINE 50 mg injection (BENADRYL) 50 mg INTRAVENOUS PRN Miley Soni MD EPINEPHrine 0.3 mg injection (EPIPEN) 0.3 mg INTRAMUSCULAR PRN Miley Soni MD hydrocortisone sodium succinate (PF) 100 mg injection (Solu-CORTEF) 100 mg INTRAVENOUS PRN Miley Soni MD NaCl 0.9% iv infusion 500-999 mL/hr INTRAVENOUS PRN Miley Soni MD NaCl (PF) 0.9% 10-20 mL injection 10-20 mL INTRAVENOUS PRN Miley Soni MD ALLERGIES Allergen Reactions Cinnamon Swelling Codeine Unknown Pt does not want due to multiple family members allergic FAMILY HISTORY Problem Relation Age of Onset Heart Attack Mother Osteoporosis Mother COPD Mother Heart Father AR, CABG x 4 Social History Tobacco Use Smoking status: Former Packs/day: 1.00 Years: 23.00 Pack years: 23.00 Types: Cigarettes Quit date: 03/29/2021 Years since quittin.1 Smokeless tobacco: Never Vaping Use Vaping Use: current everyday user Substances: THC, CBD, Flavoring Substance Use Topics Alcohol use: Yes Comment: rarely Drug use: Yes Types: Marijuana Comment: Daily (vape) (medical card) Review of Systems: A complete ROS was obtained and is otherwise neg except as noted in HPI Physical Exam: BP 153/91[right arm[ Pulse 70 Temp 97.7 Ht 5' 11 (1.80m) Wt 289 lb (131.1kg) SpO2 99% BMI 40.33 kg/(m^2). ECOG PS: 1 General: Aox3, NAD HEENT: EOMI, PERRLA, sclera anicteric, MMM Neck: Supple, no thyroid nodules, no JVD, no adenopathy Chest: CTAB w/o w/r/r Heart: RRR w/o m/r/g. Abdomen: Soft, nontender, nondistended, bowel sounds present, no organomegaly or mass Extremities: No edema, no erythema 2+ DP Pulses Neurological: CN2-12 grossly intact Skin: Warm and dry with no rashes or ulcerations. Nodes: No palpable adenopathy in the cervical, supraclavicular, infraclavicular, or axillary regions. Hematologic: no bruising or petechiae. Psychiatric: Alert and oriented x3 Labs Reviewed labs noting mild microcytic anemia, dec ferritin, low normal Tsat Latest Reference Range & Units 12/20/12 13:30 12/20/12 15:30 03/11/13 15:37 03/14/13 18:05 06/19/13 11:30 09/23/13 16:40 12/09/13 14:34 08/29/20 08:00 08/30/20 06:51 11/24/21 11:37 12/20/21 08:54 02/07/22 07:16 Ferritin 30.3 - 565.7 ng/mL 12.8 (L) 8.7 (L) Iron 41 - 186 ug/dL 20 (L) 103 Transferrin Saturation 15 - 57 % 5 (L) 27 Hemoglobin 13.0 - 17.0 g/dL 11.5 (L) 11.3 (L) 11.1 (L) 10.7 (L) 9.4 (L) 10.3 (L) 10.0 (L) 12.1 (L) 10.5 (L) 9.9 (L) 10.4 (L) 11.0 (L) MCV 80.0 - 100.0 fL 77.0 (L) 74.7 (L) 73.5 (L) 74.1 (L) 72.1 (L) 71.4 (L) 72.5 (L) 81.0 81.3 71.9 (L) 73.2 (L) 75.5 (L) (L): Data is abnormally low Radiology: Pathology: Assessment and Plan: Vinnie Olivarez is a 36 year old male w/ PMHx ALYCIA, obesity, hiatal hernia, chronic gastritis who presents for ALYCIA # Iron deficiency anemia - has had prior endoscopies in the past, has had GI bleeds in the past related to gastritis/duodenitis from paraesophageal hernia. Pending a repeat c-scope for bariatric surgery - will obtain repeat CBC, iron profile, ferritin now on PO iron for a few months - cont PO iron - will consider IV Iron if no response # Obesity/paraesophageal hernia - currently undergoing weight loss program - from hematologic perspective, patient is optimized for surgery, if he is non- responsive to PO iron, we can provide IV Iron prior to surgery but given his baseline hgb of ~11, would not hold up surgery for IV Iron, can always be provided post-op # RLE DVT - in the past, not on A/C - would do routine prophylactic A/C per surgical protocols, at higher risk for VTE in setting of surgery Raj Quintero DO Hematology/Oncology [facility] Medical Decision Making: Problems: Moderate: 2+ stable chronic illnesses Data: Unique test result(s) reviewed: 3+ Risk: Moderate: Drug management Medical Decision Making Level: 4 - Moderate documented in this encounterK[facility]10-24-2022 Instructions* Patient Instructions* Raj Quintero DO - 05/07/2022 9:26 AM EDT Images from the original note were not included. Anemia What is anemia? Anemia is a blood disorder that occurs when there is not enough hemoglobin in a person's blood. Hemoglobin is a substance in the red blood cells that makes it possible for the blood to transport (carry) oxygen through the body. When a person develops anemia, he or she is said to be anemic. There are a number of different types of anemia. Some types present only mild health problems, while others are much more severe. Each type of anemia results from one of these factors: The body cannot make enough hemoglobin The body makes hemoglobin, but the hemoglobin doesn't work right The body does not make enough red blood cells The body breaks down red blood cells too fast What are the symptoms of anemia? There are a number of symptoms that are common to all types of anemia. including: Feeling tired Difficulty breathing Dizziness Headache Feeling cold weakness pale skin What causes anemia? A lack of iron in the body is the most common cause of anemia. This type of anemia is called iron-deficiency anemia. Your body uses iron to make hemoglobin. Without the needed amount of iron, your body cannot make hemoglobin. Factors that can decrease your body's stores of iron include: Blood loss (caused within the body by ulcers, some cancers, and other conditions; and, in women, during monthly periods) An iron-poor diet An increase in the body's need for iron (in women during ) Can iron-deficiency anemia be treated? Yes. This type of anemia can be treated and cured. First, your health care provider will determine if the anemia is being caused by a poor diet or a more serious health problem. Then, you can be treated for both the anemia and its cause. Iron-deficiency anemia is treated with: Iron supplements taken by the mouth Foods high in iron What foods are high in iron? The following foods are good sources of iron: Oysters Kidney beans Beef liver Tofu Beef (jovana roast, lean ground beef) [place] leg Whole wheat bread Tuna Eggs Shrimp Peanut butter Leg-of-delgado Brown rice Raisin bran (enriched) molasses Who is most likely to develop iron-deficiency anemia? Anyone can develop iron-deficiency anemia, although the following groups have a higher risk: Women: Blood loss during monthly periods and childbirth can lead to anemia. Children, ages 1 to 2: The body needs more iron during growth spurts. Infants: Infants may get less iron when they are weaned from breast milk or formula to solid food. Iron from solid food is not as easily taken up by the body. People over 65: People over 65 are more likely to have iron-poor diets. People on blood thinners: aspirin, Plavix, Coumadin, or heparin. If I am , should I be concerned about anemia? Yes. If you are , you are more likely to develop iron-deficiency anemia. Your unborn baby relies on you for iron and other nutrients. Many women who are take iron pills to prevent anemia. To make sure that you have enough iron for you and your baby, eat well-balanced meals and follow your health care provider's instructions for taking vitamins and adding iron to your diet. Are there different types of anemia? Yes. Iron-deficiency anemia is just one type of anemia. Other types of anemia are caused by: Diets lacking in vitamin B12 (or, the body is unable to use, or absorb B12) Diets lacking in folic acid (or, the body is unable to use folic acid) Inherited blood disorders Conditions that cause red blood cells to break down too fast (either from toxic substances or blooddisorders) How can I know if I have anemia? Your health care provider can perform blood tests to tell if you have anemia. The type and number of blood tests will depend on what type of anemia is suspected. Your health care provider will determine the proper treatment, depending on the type of anemia and its cause. What are the different types of anemia? The following chart describes some of the different types of anemia, their causes, and the related blood factors: Types of Anemia Causes Factors Iron-deficiency anemia Blood loss, lack of iron in the diet Body cannot make enough red blood cells References National Heart, Lung, and Blood [place]. What Is Anemia? Accessed 03/30/2014. National Heart, Lung, and Blood [place]. Your Guide to Anemia Accessed 03/30/2014. Copyright 9646-3662 The [facility]. All rights reserved This information is provided by the [facility] and is not intended to replace the medical advice of your doctor or health care provider. Please consult your health care provider for advice about a specific medical condition. For additional health information, please contact the Center for Consumer Health Information at the [facility] or toll-free extension [phone]. If you prefer, you may visit [email or web address] or [email or web address]. This document was last reviewed on: 2017 index#[id number] documented in this encounterK[facility]10-10-2022 History of Present illness Narrative* Debra Crocker APRN.DYNAMITER - 04/23/2022 11:25 AM EDT BARIATRIC SURGERY CLINIC FOLLOW UP NOTE DISTANCE HEALTH VISIT This Team Access Model visit is a virtual encounter. It required patient- provider interaction for the medical decision making as documented below. Consent was obtained to complete today's distance health visit. HPI: Vinnie Olivarez a 36 year old male for presents for medically supervised weight loss treatment of his obesity related co morbidities. This individual presents for month 7 of 6 required visits completed as a virtual telephone encounter Vinnie Olivarez weight calculation has decreased by 9# since his last visit. He denies recent illnesses, recent hospitalizations, recent ED visits. Denies worsening acid reflux, abdominal pain, changes to stool pattern. He continues to use CPAP nightly He underwent EGD with Dr. Schroeder which demonstrated paraesophageal hernia, chronic Joni's erosions and resolved duodenitis. He did not complete colonoscopy prep appropriately therefore was rescheduled for 05/10. He is still on the waiting list for a trauma counselor. He still needs to schedule appointment withhematology. He remains nicotine free HISTORY REVIEWED (electronic chart updated): - medical history - medications - allergies PAST MEDICAL HISTORY Diagnosis Date Back pain extra vertebrae in my lower back. Bipolar disorder (HCC) Class 3 severe obesity due to excess calories with serious comorbidity and body mass index (BMI) of40.0 to 44.9 in adult (HCC) DVT (deep venous thrombosis) ([facility]) RLE, multiple per patient but no detention anticoag Essential hypertension Kidney stones Left adrenal mass (HCC) Paraesophageal hernia 06/16/2021 6 cm Psychiatric disorder Sleep apnea does not use CPAP Tobacco use disorder Social: Social History Tobacco Use Smoking status: Former Packs/day: 1.00 Years: 23.00 Pack years: 23.00 Types: Cigarettes Quit date: 03/29/2021 Years since quittin.0 Smokeless tobacco: Never Vaping Use Vaping Use: current everyday user Substances: THC, CBD, Flavoring Substance Use Topics Alcohol use: Yes Comment: rarely Drug use: Yes Types: Marijuana Comment: Daily (vape) (medical card) Medications: Current Outpatient Medications Medication Sig pantoprazole DR (PROTONIX) 40 mg tablet Take 1 tablet by mouth once daily. acetaminophen (TYLENOL EXTRA STRENGTH) 500 mg tablet Take 500 mg by mouth every 8 hours as needed. QUEtiapine XR (SEROQUEL XR) 400 mg 24 hr tablet TAKE 1 TABLET BY MOUTH ONCE DAILY AT BEDTIME FLUoxetine HCl (PROZAC) 40 mg capsule Take 1 capsule by mouth once daily. OXcarbazepine (TRILEPTAL) 600 mg tablet 300mg qam 900mg qpm gabapentin (NEURONTIN) 300 mg capsule Take 1 capsule by mouth three times daily for 30 days. (Patient taking differently: Take 300 mg by mouth three times daily. Once daily, second and third dose as needed) diphenhydrAMINE (BENADRYL) 25 mg capsule Take 25 mg by mouth at bedtime as needed. cholecalciferol, Vitamin D3, (VITAMIN D3) 1,250 mcg (50,000 unit) cap capsule Take 1 capsule by mouth one time a week for 12 doses. Transition to 2,000-4,000 units of Vitamin D OTC after completing 12 weeks (Patient not taking: No sig reported) Current Facility-Administered Medications Medication Dose Route Frequency perflutren lipid microspheres 1.3 mL in NaCl (PF) 0.9% 10 mL injection (DEFINITY) INTRAVENOUS DIRECTED PRN sodium chloride 0.9 % (flush) 10 mL (BD POSIFLUSH) 10 mL INTRAVENOUS DIRECTED PRN diphenhydrAMINE 50 mg injection (BENADRYL) 50 mg INTRAVENOUS PRN EPINEPHrine 0.3 mg injection (EPIPEN) 0.3 mg INTRAMUSCULAR PRN hydrocortisone sodium succinate (PF) 100 mg injection (Solu-CORTEF) 100 mg INTRAVENOUS PRN NaCl 0.9% iv infusion 500-999 mL/hr INTRAVENOUS PRN NaCl (PF) 0.9% 10-20 mL injection 10-20 mL INTRAVENOUS PRN REVIEW OF SYSTEMS General: No fatigue or fevers HEENT: Negative for frequent or significant headaches, No changes in hearing or vision, no nose bleeds or other nasal problems PAP Therapy: Using it nightly. GI:No nausea, vomiting, or diarrhea and No heartburn or reflux symptoms Muskuloskeletal: Negative for joint pain or swelling, back pain or muscle pain Skin: Negative for lesions, rash, and itching Psych: Negative for sleep disturbance, mood disorder and recent psychosocial stressors PHYSICAL EXAMINATION Wt 122.9 kg (271 lb) BMI 37.8 kg/m2 Ht 180.3 cm (5' 11) BMI 37.8 kg/m2 GENERAL APPEARANCE: Pleasant, interacts appropriately and in no apparent distress. Appropriately groomed, happy, smiling, and interactive SKIN: Skin of normal texture, temperature without rashes/lesions/ulcerations. LUNGS: unlabored on room air negative findings: normal respiratory rate no cough NEURO/PSYCH: Oriented to person, place, time; appropriate insight and judgement. Appropriate affect. Diagnostic Tests Reviewed for Today's Visit Most recent lab and imaging results The plan of treatment for Vinnie Olivarez is Further Work-up: Required monthly visits: 7 of 6 months. Patient is interested in: Gastric Bypass w/ PEHR EGD: Paraesophageal hernia - 6 cm; Antral gastritis; Gastric body erosions; Joni's erosions; Duodenitis EGD 04/12/22: 1. Severe obesity 2. Paraesophageal hernia - 8 cm 3. History of Joni's erosions - persistent 4. History of gastric erosions and duodenitis - resolved 5. GERD C-scope: scheduled 05/10 Upper GI: n/a RUQ US: NAFLD, Mild gallbladder sludge. No shadowing gallstone or convincing sonographic evidence for acute cholecystitis.No biliary dilation. HIDA: Normal gallbladder functional response/EF is not a typical scintigraphic finding of chronic cholecystitis. Clinical correlation is recommended. Patent CBD. Sleep Study: Known TIFFANIE, uses CPAP CXR:per pulm clearance EKG:per cardiac clearance Heart cath 02/08: Normal - no CAD H Pylori negative. Labs: complete, iron def anemia, Vit D def Nicotine use <12 months: Yes--nicotine test ordered--+cotinine (232); will need repeat Tox screen: + marijuana, otherwise negative Marijuana use: Yes--medical marijuana card is scanned in Antiplatelet/anticoagulants: No Immunosuppressive therapy: No Estrogen therapy: No Evaluations Psychology: ongoing - pending repeat nicotine test and establishing with counselor Nutrition: ongoing Education class: ongoing Clearances: Cardiac (low- telephone encounter 02/08), Endo (12/27 low), Hematology (x3 DVT, needs to schedule), Pulmonary (cleared, telephone encounter 03/05) and PCP Risk Calculator: VTE Risk: hx DVT COVID-19 Risk 3 Post-op Medications: Extended Lovenox: Will require, history of DVT Actigall: Yes H2 serge/PPI: On PPI ASSESSMENT/PLAN: 1. Class 3 severe obesity due to excess calories with serious comorbidity and body mass index (BMI)of 40.0 to 44.9 in adult (HCC) - ICD9: 278.01, V85.41, ICD10: E66.01, Z68.41 (primary diagnosis) Weight decreasing - Behavioral intervention and - Medical nutrition therapy with dietitian 2. Paraesophageal hernia - ICD9: 553.3, ICD10: K44.9 - 8 cm PEH noted on EGD 3. Tobacco abuse, in remission - ICD9: 305.1, ICD10: F17.201 - Cessation encouraged. - Physiologic and physical aspects of tobacco addiction as well as strategies for quitting were discussed. - Counseling was given focusing on the harmful effects of this addiction especially given the patient's medical condition(s) which will be worsened because of the chemicals in tobacco. - He remains nicotine free himself but is exposed to secondhand smoke from his . Most recent nicotine test showed elevations likely related to secondhand smoke exposure. He is aware to have nicotine test repeated to show similar or lower levels. 4. TIFFANIE on CPAP - ICD9: 327.23, V46.8, ICD10: G47.33, Z99.89 - Uses CPAP nightly - cleared by pulm/sleep 5. History of DVT (deep vein thrombosis) - ICD9: V12.51, ICD10: Z86.718 - needs to schedule with hematology 6. Chronic Joni lesion - ICD9: 531.70, ICD10: K25.7 - noted on EGD Still needs repeat nicotine test, colonoscopy, and clearances from nutrition, psychology, and hematology. Follow-up with [facility] next month to review testing results and clearance status. Debra Crocker, LINDA.DYNAMITER Total time in direct patient contact = 12 min. Greater than 50% of the time was spent in counselingand/or coordination of care. This note was generated using voice recognition technology and may contain grammatical errors. Medical Decision Making: Problems: Moderate: 2+ stable chronic illnesses Data: Unique test result(s) reviewed: 1 Assessment requiring an independent historian(s) Medical Decision Making Level: 3 - Low documented in this encounterK[facility]09-29-2022 Surgical operation note* Operative Report - Pam Schroeder MD - 04/12/2022 2:27 PM EDT OPERATIVE/PROCEDURE REPORT LOG ID: [id number] Surgery/Procedure Date: Incision/Procedure Start Time: 2:37 PM Incision Close/Procedure End Time: 2:43 PM Surgeon(s)/Proceduralist(s) and Net Developer Architect(s): * No surgeons found in log * No Additional Staff PREOPERATIVE DIAGNOSIS: 1. Severe obesity 2. Paraesophageal hernia 3. History of Joni's erosions 4. History of gastric erosions and duodenitis 5. GERD POSTOPERATIVE DIAGNOSIS: 1. Severe obesity 2. Paraesophageal hernia - 8 cm 3. History of Joni's erosions - persistent 4. History of gastric erosions and duodenitis - resolved 5. GERD COMPLICATIONS: None. Procedure(s): 1. Esophagogastroduodenoscopy (EGD) with cold forceps biopsies of the gastric antrum Anesthesia: * No anesthesia type entered * MAC by Anesthesiology without complications Operative Findings: Diagnostic EGD demonstrated a large paraesophageal hernia and joni's erosions Operative Indication: Vinnie Olivarez is a 36 year old male who presents for EGD as a part of the bariatric program work-updue to a history of duodenitis, gastric erosions, and joni's erosions. We discussed the risks, benefits, alternatives, and potential complications, and the patient agreed to proceed. He was supposed to undergo a colonoscopy today, but yesterday ate solid food and thus the colonoscopy was cancelled and will be rescheduled. Procedure Details: The patient was brought to the endoscopic suite in stable condition. The preprocedural checklist was completed to the satisfaction of the entire team and verified with the patient. We had previously completed the consent process after discussing the risks and benefits of the procedure, which included, but were not limited to, the risk of hemorrhage, need for blood transfusion, and the possibilityof perforation. Once he was induced by Anesthesia and appropriately sedated, the Olympus gastroscope was entered through the mouth. I was easily able to intubate the esophagus. The esophageal portion of the examination was positive for a slightly tortuous esophagus but, otherwise, was within normal limits. The Z-line was measured at 40 centimeters from the bite protector. The diaphragmatic hiatus was measured at48-cm from the bite protector. I then entered the stomach. The patient had some gastric secretions,which were suctioned out using the gastroscope. There were linear erosions of the stomach consistent with joni's erosions. There was no evidence of active bleeding. I did retroflex the scope, which showed a normal appearing GE junction and fundus from that angle. Retroflex view showed a Hill grade 4 consistent with a large paraesophageal hernia. I then intubated the pylorus into the duodenal bulb, examining both the anterior and posterior portions of the duodenal bulb and then into the second portion of the duodenum. That part of the procedure was within normal limits. Once back in the stomach, I then performed 2 separate cold forceps biopsies in the gastric antrum to be sent for h.pylori. This was done with minimal bleeding. I ensured we had good hemostasis. Of note, former duodenitisand gastric erosions were resolved compared to previous EGD. Gastric insufflation was removed usingsuction. The gastroscope was removed through the mouth. The patient tolerated the procedure very well and was returned to recovery room in stable condition. Recommendations: continue healthy lifestyle changes. Follow up in bariatric clinic Estimated Blood Loss: minimal Specimens: 1. Gastric antrum Implantable Devices: none Drains: None Complications: None I performed the procedure independently SIGNATURE: Pam Schroeder MD PATIENT NAME: Vinnie Olivarez DATE: April 12, 2022 TIME: 2:47 PM PAGER/CONTACT #: documented in this encounterK[facility]09-29-2022 History and physical note * Olivia Campbell APRN.DYNAMITER - 04/12/2022 2:00 PM EDT HISTORY AND PHYSICAL EXAMINATION SERVICE DATE: 04/12/2022 SERVICE TIME: 12:40 PM PRIMARY CARE PHYSICIAN: Eileen Vogel MD REASON FOR VISIT: Vinnie Olivarez is a 36 year old male who is scheduled for EGD at the request of Dr. Schroeder for routine H&P. The patient has the following: ACTIVE PROBLEM LIST Back Pain Dvt (Deep Venous Thrombosis) (Hcc) Psychiatric Disorder Tiffanie (Obstructive Sleep Apnea) Calculus of Kidney Essential Hypertension Obesity, Class III, BMI >= 40 Left Adrenal Mass (Hcc) Gerd (Gastroesophageal Reflux Disease) Bph (Benign Prostatic Hyperplasia) Preop Pulmonary/Respiratory Exam Abnormal Stress Test Subjective CHIEF COMPLAINT: Anemia HPI: Patient is a 36 year old male who presents to endo for the above procedure. Pt is planning for weight loss surgery. Pt has a history of anemia, H/H /38.2 02/07/2022. Denies abdominal pain, Nausea, vomiting, constipation, diarrhea, hemtochezia at this time. Pt has had an EGD a year ago. Patient agrees to proceed with procedure. PAST MEDICAL HISTORY Diagnosis Date Back pain extra vertebrae in my lower back. Bipolar disorder ([facility]) Class 3 severe obesity due to excess calories with serious comorbidity and body mass index (BMI) of40.0 to 44.9 in adult (HCC) DVT (deep venous thrombosis) ([facility]) RLE, multiple per patient but no detention anticoag Essential hypertension Kidney stones Left adrenal mass (HCC) Paraesophageal hernia 06/16/2021 6 cm Psychiatric disorder Sleep apnea does not use CPAP Tobacco use disorder PAST SURGICAL HISTORY Procedure Laterality Date ADRENALECTOMY Left 08/29/2020 Dr. Verdin EGD EGD WITH BIOPSY(S) 06/16/2021 6 cm paraesophageal hernia, Joni's erosions, duodenitis; Dr. Schroeder LITHOTRIPSY Right 11/15/2020 kidney; Dr. Gillette PAST SURGICAL HISTORY OF wisdom teeth SCREENING COLONSCOPY NOT HIGH RISK TONSILLECTOMY AND ADENOIDECTOMY HX FAMILY HISTORY Problem Relation Age of Onset Heart Attack Mother Osteoporosis Mother COPD Mother Heart Father AR, CABG x 4 SOCIAL HISTORY: Social History Tobacco Use Smoking status: Former Packs/day: 1.00 Years: 23.00 Pack years: 23.00 Types: Cigarettes Quit date: 03/29/2021 Years since quittin.0 Smokeless tobacco: Never Vaping Use Vaping Use: current everyday user Substances: THC, CBD, Flavoring Substance Use Topics Alcohol use: Yes Comment: rarely Drug use: Yes Types: Marijuana Comment: Daily (vape) (medical card) Prior to Admission medications as of 03/23/22 1358 Medication Sig Last Dose Taking pantoprazole DR (PROTONIX) 40 mg tablet Take 1 tablet by mouth once daily. cholecalciferol, Vitamin D3, (VITAMIN D3) 1,250 mcg (50,000 unit) cap capsule Take 1 capsule by mouth one time a week for 12 doses. Transition to 2,000-4,000 units of Vitamin D OTC after completing 12 weeks Patient not taking: Reported on 03/23/2022 acetaminophen (TYLENOL EXTRA STRENGTH) 500 mg tablet Take 500 mg by mouth every 8 hours as needed. QUEtiapine XR (SEROQUEL XR) 400 mg 24 hr tablet TAKE 1 TABLET BY MOUTH ONCE DAILY AT BEDTIME FLUoxetine HCl (PROZAC) 40 mg capsule Take 1 capsule by mouth once daily. OXcarbazepine (TRILEPTAL) 600 mg tablet 300mg qam 900mg qpm gabapentin (NEURONTIN) 300 mg capsule Take 1 capsule by mouth three times daily for 30 days. Patient taking differently: Take 300 mg by mouth three times daily. Once daily, second and third dose as needed diphenhydrAMINE (BENADRYL) 25 mg capsule Take 25 mg by mouth at bedtime as needed. No medication comments found. ALLERGIES Allergen Reactions Cinnamon Swelling Codeine Unknown Pt does not want due to multiple family members allergic REVIEW OF SYSTEMS: PAIN ASSESSMENT: General: Denies fever, chills, and unexpected weight change. Neuro: Denies dizziness and headaches. Respiratory: Denies SOB or productive cough. +TIFFANIE Cardiovascular: Denies CP and palpitations. +HTN, +HLD GI: see HPI : Denies dysuria. Endocrine: No history of diabetes or thyroid conditions. Hematology: Denies history of bleeding or clotting disorder. No known autoimmune disorders. +DVT, +anemia Musculoskeletal: Denies joint pain and swelling. Skin: Denies open sores and rashes. Objective PHYSICAL EXAM: VITALS: See nursing flow sheet General: NAD. Cooperative. Skin: Skin is warm, no rashes, and no open sores. HEENT: Normocephalic. Cardiovascular: Normal S1 & S2. RRR, No murmur. Lungs: CTA Bilaterally. No respiratory distress. Abdomen: Soft, nontender, non-distended. Bowel sounds normal in all four quadrants. Extremities: No edema. Neurological: Alert and oriented to person, place, and time. Pulses: radial pulses +2 Diagnostic tests reviewed for today's visit: Lab Value Units Date High Low HB 11.0 g/dL 02/07/2022 17.0 13.0 HCT 38.3 % 02/07/2022 51.0 39.0 WBC 5.04 k/uL 02/07/2022 11.00 3.70 PLT 238 k/uL 02/07/2022 400 150 NA 138 mmol/L 02/07/2022 144 136 K 4.2 mmol/L 02/07/2022 5.1 3.7 GLUC 97 mg/dL 02/07/2022 99 74 BUN 12 mg/dL 02/07/2022 24 9 CREAT 1.03 mg/dL 02/07/2022 1.22 0.73 PTSEC No results within date range. INR No results within date range. APTT No results within date range. ALT 50 U/L 11/24/2021 54 10 AST 32 U/L 11/24/2021 40 14 TBILI 0.2 mg/dL 11/24/2021 1.3 0.2 TSH No results within date range. Lab Value Units Date High Low HCGQT No results within date range. UHCG No results within date range. HCG, BODY* No results within date range. Lab Value Units Date High Low ABORHD No results within date range. ABSCREEN No results within date range. Assessment/Plan ANESTHESIA FINDINGS: Significant Anesthesia Considerations: None Patient has the following medical conditions which may affect tamra-operative course Anemia - ferrous sulfate HTN - Well controlled, no medication HLD - diet controlled Morbid Obesity TIFFANIE - Patient is using CPAP/BIPAP DVT - 2018, unprovoked, no blood thinners Smoker - vapes mariajuana daily. Former cigarette smoker, quit 03/2021, 23 pack years PLAN Procedure Diagnosis: Anemia, unspecified type [D64.9] Iron deficiency anemia, unspecified iron deficiency anemia type [D50.9] Planned Procedure: EGD and colonoscopy Planned Anesthetic: MAC SIGNATURE: Olivia Campbell APRN.CNP PATIENT NAME: Vinnie Olivarez DATE: April 12, 2022 TIME: 12:40 PM PAGER/CONTACT #: [facility] Miscellaneous Notes* Telephone Encounter - Alfreda Singh MA - 04/11/2022 5:15 PM EDT Phone call from patient stating that he forgot and ate solid food before starting his colonoscopy prep. After speaking with Dr. Schroeder she advised that she can still complete the EGD but we will needto reschedule the colonoscopy. I advised patient of this and made sure to relay that he cannot haveanything to eat or drink 8 hours prior. I also sent prep to patient via i-markert and advised patientto stop up to the office after to procedure and I can reschedule his colonoscopy. Alfreda Singh MA documented in this encounterK[facility]-2022 Miscellaneous Notes* Telephone Encounter - Josh Kirby MA - 03/30/2022 3:02 PM EDT LIBAN 04/25/21 Pharmacy calls in requesting the following refill(s): Requested Prescriptions Pending Prescriptions Disp Refills pantoprazole DR (PROTONIX) 40 mg tablet 90 tablet 3 Sig: Take 1 tablet by mouth once daily. Josh Kirby MA documented in this encounterK[facility]-2022 History of Present illness Narrative* Debra Crocker APRN.[facility] - 03/23/2022 1:32 PM EDT BARIATRIC SURGERY CLINIC FOLLOW UP NOTE DISTANCE HEALTH VISIT This Team Access Model visit is a virtual encounter. It required patient- provider interaction for the medical decision making as documented below. Consent was obtained to complete today's distance health visit. HPI: Vinnie Olivarez a 36 year old male for presents for medically supervised weight loss treatment of his obesity related co morbidities. This individual presents for month 6 of 6 required visits completed as a virtual telephone encounter Vinnie Olivarez weight calculation has decreased by 12# since his last visit. He denies recent illnesses, recent hospitalizations, recent ED visits. Denies worsening acid reflux, abdominal pain, changes to stool pattern, melena, bright red blood per rectum. He is scheduled forEGD and colonoscopy on 04/12 for previous anemia and duodenitis. He continues to use CPAP nightly. He has been cleared by pulmonology to proceed with surgery. He remains nicotine free although still has not had repeat nicotine test that showed elevation in Continine-which is indicative of his exposure to secondhand smoke. HISTORY REVIEWED (electronic chart updated): - medical history - medications - allergies PAST MEDICAL HISTORY Diagnosis Date Back pain extra vertebrae in my lower back. Bipolar disorder ([facility]) Class 3 severe obesity due to excess calories with serious comorbidity and body mass index (BMI) of40.0 to 44.9 in adult ([facility]) DVT (deep venous thrombosis) ([facility]) RLE, multiple per patient but no detention anticoag Essential hypertension Kidney stones Left adrenal mass ([facility]) Paraesophageal hernia 06/16/2021 6 cm Psychiatric disorder Sleep apnea does not use CPAP Tobacco use disorder Social: Social History Tobacco Use Smoking status: Former Packs/day: 1.00 Years: 23.00 Pack years: 23.00 Types: Cigarettes Quit date: 03/29/2021 Years since quittin.9 Smokeless tobacco: Never Vaping Use Vaping Use: Never used Substance Use Topics Alcohol use: Yes Comment: rarely Drug use: Yes Types: Marijuana Comment: rarely Medications: Current Outpatient Medications Medication Sig ferrous sulfate 325 mg (65 mg iron) tablet Take 1 tablet by mouth daily at bedtime. Do no take within two hours of calcium supplement acetaminophen (TYLENOL EXTRA STRENGTH) 500 mg tablet Take 500 mg by mouth every 8 hours as needed. pantoprazole DR (PROTONIX) 40 mg tablet Take 1 tablet by mouth once daily. QUEtiapine XR (SEROQUEL XR) 400 mg 24 hr tablet TAKE 1 TABLET BY MOUTH ONCE DAILY AT BEDTIME FLUoxetine HCl (PROZAC) 40 mg capsule Take 1 capsule by mouth once daily. OXcarbazepine (TRILEPTAL) 600 mg tablet 300mg qam 900mg qpm gabapentin (NEURONTIN) 300 mg capsule Take 1 capsule by mouth three times daily for 30 days. (Patient taking differently: Take 300 mg by mouth three times daily. Once daily, second and third dose as needed) diphenhydrAMINE (BENADRYL) 25 mg capsule Take 25 mg by mouth at bedtime as needed. cholecalciferol, Vitamin D3, (VITAMIN D3) 1,250 mcg (50,000 unit) cap capsule Take 1 capsule by mouth one time a week for 12 doses. Transition to 2,000-4,000 units of Vitamin D OTC after completing 12 weeks (Patient not taking: Reported on 03/23/2022) Current Facility-Administered Medications Medication Dose Route Frequency perflutren lipid microspheres 1.3 mL in NaCl (PF) 0.9% 10 mL injection (DEFINITY) INTRAVENOUS DIRECTED PRN sodium chloride 0.9 % (flush) 10 mL (BD POSIFLUSH) 10 mL INTRAVENOUS DIRECTED PRN diphenhydrAMINE 50 mg injection (BENADRYL) 50 mg INTRAVENOUS PRN EPINEPHrine 0.3 mg injection (EPIPEN) 0.3 mg INTRAMUSCULAR PRN hydrocortisone sodium succinate (PF) 100 mg injection (Solu-CORTEF) 100 mg INTRAVENOUS PRN NaCl 0.9% iv infusion 500-999 mL/hr INTRAVENOUS PRN NaCl (PF) 0.9% 10-20 mL injection 10-20 mL INTRAVENOUS PRN REVIEW OF SYSTEMS General: No fatigue or fevers HEENT: Negative for frequent or significant headaches, No changes in hearing or vision, no nose bleeds or other nasal problems PAP Therapy: Using it nightly. GI:No nausea, vomiting, or diarrhea and No heartburn or reflux symptoms Muskuloskeletal: Negative for joint pain or swelling, back pain or muscle pain Skin: Negative for lesions, rash, and itching Psych: Negative for sleep disturbance, mood disorder and recent psychosocial stressors PHYSICAL EXAMINATION Wt 127 kg (280 lb) BMI 39.05 kg/m2 Ht 180.3 cm (5' 11) BMI 39.05 kg/m2 GENERAL APPEARANCE: Pleasant, interacts appropriately and in no apparent distress. Appropriately groomed, happy, smiling, and interactive SKIN: Skin of normal texture, temperature without rashes/lesions/ulcerations. LUNGS: unlabored on room air negative findings: normal respiratory rate no cough NEURO/PSYCH: Oriented to person, place, time; appropriate insight and judgement. Appropriate affect. Diagnostic Tests Reviewed for Today's Visit Most recent lab and imaging results The plan of treatment for Vinnie Olivarez is Further Work-up: Required monthly visits: 6 of 6 months. Patient is interested in: Gastric Bypass w/ PEHR EGD: Paraesophageal hernia - 6 cm; Antral gastritis; Gastric body erosions; Joni's erosions; Duodenitis -- repeating EGD and colonoscopy 04/12 Upper GI: n/a RUQ US: NAFLD, Mild gallbladder sludge. No shadowing gallstone or convincing sonographic evidence for acute cholecystitis.No biliary dilation. HIDA: Normal gallbladder functional response/EF is not a typical scintigraphic finding of chronic cholecystitis. Clinical correlation is recommended. Patent CBD. Sleep Study: Known TIFFANIE, uses CPAP CXR:per pulm clearance-needs to reschedule EKG:per cardiac clearance Heart cath 02/08: Normal - no CAD H Pylori negative. Labs: complete, iron def anemia, Vit D def Nicotine use <12 months: Yes--nicotine test ordered--+cotinine (232); will need repeat Tox screen: + marijuana, otherwise negative Marijuana use: Yes--medical marijuana card is scanned in Antiplatelet/anticoagulants: No Immunosuppressive therapy: No Estrogen therapy: No Evaluations Psychology: ongoing - pending repeat nicotine test and establishing with counselor Nutrition: ongoing Education class: ongoing Clearances: Cardiac (low- telephone encounter 02/08), Endo (12/27 low), Hematology (x3 DVT, needs to schedule), Pulmonary (cleared, telephone encounter 03/05) and PCP Risk Calculator: VTE Risk: hx DVT COVID-19 Risk 3 Post-op Medications: Extended Lovenox: Will require, history of DVT Actigall: Yes H2 serge/PPI: On PPI ASSESSMENT/PLAN: 1. Class 3 severe obesity due to excess calories with serious comorbidity and body mass index (BMI)of 40.0 to 44.9 in adult (HCC) - ICD9: 278.01, V85.41, ICD10: E66.01, Z68.41 (primary diagnosis) Weight decreasing - Behavioral intervention and - Medical nutrition therapy with dietitian 2. Paraesophageal hernia - ICD9: 553.3, ICD10: K44.9 - planned repair with RYGB 3. Duodenitis without bleeding - ICD9: 535.60, ICD10: K29.80 - repeat EGD with Dr. Schroeder on 04/12 4. Gastroesophageal reflux disease without esophagitis - ICD9: 530.81, ICD10: K21.9 - Discussed lifestyle modifications including losing weight, limiting caffeine, no meals three hours before sleep, and head of bed elevation - Continue PPI 5. Tobacco abuse, in remission - ICD9: V15.82, ICD10: F17.201 - Cessation encouraged. - Physiologic and physical aspects of tobacco addiction as well as strategies for quitting were discussed. - Counseling was given focusing on the harmful effects of this addiction especially given the patient's medical condition(s) which will be worsened because of the chemicals in tobacco. - Needs repeat nicotine test showing consistent or lower levels and metabolites. Patient states that he is exposed to secondhand smoke through his . He is aware he will need this test done prior to consenting and then another test done prior to surgery. - Discussed the importance of avoiding secondhand smoke as much as possible 6. History of DVT (deep vein thrombosis) - ICD9: V12.51, ICD10: Z86.718 - requesting hematology clearance Still needs repeat nicotine test and EGD/colonoscopy and clearances from: Nutrition, psychology, and hematology. Follow-up with [facility] next month to review testing results and clearance status. Debra Crocker APRN.[facility] Total time in direct patient contact = 20 min. Greater than 50% of the time was spent in counselingand/or coordination of care. This note was generated using voice recognition technology and may contain grammatical errors. Medical Decision Making: Problems: Moderate: 2+ stable chronic illnesses Data: Assessment requiring an independent historian(s) Medical Decision Making Level: 3 - Low documented in this encounterK[facility] History of Present illness Narrative* Leyla Small RD - 03/23/2022 1:00 PM EDT Vinnie Olivarez This patient encounter was completed virtually using a secure, HIPPA compliant video chat software program with the patient's consent. Pre-Op weight goal: 285 lbs Education Class: Patient will receive instruction regarding healthy food choices and eating behaviors identified as optimal when preparing for surgery, losing weight after surgery, and maintaining weight loss long-term. Patient will also receive instruction regarding the Bariatric Full Liquid diet following surgery and optimal post-operative high-protein supplement choices. Education class to be completed prior to surgery. Behaviors Accomplished: Visit # 6 Date: 03/23/22 Weight: 280 lbs Enrollment weight: 295 lbs (07/04/21) Weight goal met: Yes, down 8# since last RD visit, 15# below enrollment wt Behaviors that helped/hindered weight loss: helped Keeping journal daily Eating 3 meals/one snack Choose healthy foods Daily multivitamin Exercise: > 150 min/week 24 hr recall: 03/22 B: zeina kay sausage egg and cheese sandwich (13g) + OJ L: (dine out) chicken sandwich (5 oz), large SF lemonade D: (3 - 4 oz each) tacos -- lean ground beef with cheese S: 1 bag of baked lays BBQ chips F: 32 oz SF lemonade + 4 water bottles - 100 oz Protein per recall: 132g (per my calculation) Protein intake:could not review journal today Fluid intake: could not review journal -- per pt he does aim to get a minimum of 4 water bottles daily Exercise: walking at night for 30-45 min/5x week, if he has extra time he plans on adding on more walking time throughout the week -- meeting exercise goals at this time Caffeine: reducing coffee intake -- still working on eliminating Carbonation: eliminated energy drinks Alcohol: none since last RD appointment Dining out: reduced since last RD visit -- 1-2x/week at this time Previously verbalized he was taking small notes to record his meals - at this time d/t a work accident he does not have a food journal to review this past week/month. Recommended to get back to keeping food journal - did advise patient that it is required for our bariatric program to keep a food journal 5-7 days per week + tracking protein intake to reach daily goals (70-105g/daily). Did advise patient to have a completed food journal to review during next appointment. Per 24 recall, exceeding protein goals and meeting fluid goals. Did review overall daily protein/fluid goals and to limit protein to 70-105g/day. Patient report he is successfully eliminated energy drinks at this time, still w orking on eliminating caffeine intake completely. Has significantly reduced dining out to 1-2 timesa week since last RD visit. Is endorsing in at least 150 minutes of exercise per week thus meeting exercise goals at this time. Was previously taking daily MV but has not been as consistent lately - encouraged to get back into the routine of taking it. The patient meets NIH guidelines for weight loss surgery and has been thoroughly evaluated and educated on good dietary practices. Patient is capable of following these guidelines pre-and post-surgically. From nutrition standpoint, the has partially met nutrition clearance and will need to demonstrate maintaining a food journal 5-7x/week, demonstrating meeting protein/fluid 5- 7x/week, and eliminating caffeine to receive nutrition clearance Plan: follow up with RD in 1 month Goals Eat 3 meals every day--consider protein shake as meal replacement (ie. premier protein) formal exercise 2-7x/week, as tolerated, goal of 30 minutes--consider with 2-3 days per week (consider on off-days), overall goal of 150 active minutes (walking) journal daily and bring to all appointments--document at least 5-7x/week, goal of 70-105g protein and 64oz of fluids--aim for around 25g protein with each meal work towards reducing caffeine/carbonation--switch over to decaf coffee and cut Monster drinks 50%--goal of d/'cing all caffeine/carbonation I spent 25 minutes in the visit, with more than 50% of the total [id number] time of the visit in counseling / coordination of care. Leyla Small RD This note was generated using voice recognition technology and may contain grammatical errors. documented in this encounterK[facility] History of Present illness Narrative* Tamela Reyes, PhD - 03/21/2022 9:00 AM EDT Images from the original note were not included. Tamela Reyes, Ph.D., Clinical Psychologist [facility] [address] [place] [address], [address] [place] [address] [facility] Progress Note March 21, 2022 BILLING CODE: Eric CPT Code: 46853 Psychotherapy 16-37 minutes Chief Complaint: Presurgical preparation focused on behavior change; stress management/coping Time initiated session: 9:00am to 9:25am Date of First Session: 12/18/21 (initial evaluation) Session #: 4 This appointment was conducted remotely via video virtual visit due to outbreak of COVID-19. Patient agreed to distance mental health visit. Prior to initiating the appointment, patient identity was established using name and date of .Patient was encouraged to move to a quiet place free of distractions. Provided patient with number to call in case of disconnection ([phone]) and obtained alternate phone number from patient (n/a, patient requested call back on [phone]). He reported he was at the following location: home ([address] [facility] [address] [facility] [address]) Patient identified the following plan to follow in case of emergency: Go to emergency room or call 911 Closest emergency room: [facility] Extended Emergency Contact Information Primary Emergency Contact: SherKelly [address]: [address] [place], [place] [id number] [place] [address] OF [facility] Mobile Relation: Spouse Secondary Emergency Contact: Bettina Cherry Mobile Relation: Mother Collateral Parties Present: none. Subjective: Patient reported that he has been working on making changes in line with recommendations and is working to consistently track his food, meet protein and fluid goals, and engage in consistent exercise. He did complete the SRR group last month and reported continuing to avoid substances, including nicotine. He does report continued secondhand smoke from his , and reported some challenges with avoiding secondhand smoke. He does understand the importance of avoiding nicotine and will have a follow-up nicotine test repeated. Patient did call to schedule with individual counseling and reported he is on a waiting list at the [facility]. He plans to schedule as soon as he is able. Validated patient's emotions and experiences and engaged in reflective listening as he explored hisconcerns. Reinforced focus on making healthy choices, and engaged in motivational interviewing to identify factors supporting changes, as well as barriers to change. Explored ongoing use of effective, healthy stress management skills, and encouraged patient to continue using healthy skills to manage stress. Explored the progress patient has made since the initial evaluation, as well as future desired areas of change. Patient reported a desire to continue focusing on increasing his fluids and more consistently tracking his food. He reported he was tracking his food with an notepad, but this was destroyed by an accident at work. He plans to return to using the [employer] goldie. Overall, patienthas been focusing on making changes and maintains high motivation and appropriate support. No additional visits with psychology are required at this time; however, pt is welcome to return as needed/desired before or after surgery. Psychological clearance pending negative nicotine screen and confirmation that patient has established with individual counseling. Patient mood is: Calm. Affect is: Mood congruent. Patient denies any suicidal or homicidal ideation, plan or intent at this time. Objective: Assessment: (F54) Psychological factors affecting medical condition (primary encounter diagnosis) (E66.01, Z68.41) Class 3 severe obesity with serious comorbidity and body mass index (BMI) of 40.0 to 44.9 in adult, unspecified obesity type (HCC) (F31.9) Bipolar disorder with psychotic features (HCC) (F43.10) PTSD (post-traumatic stress disorder) (F17.211) Cigarette nicotine dependence in remission (Z79.899) Medical marijuana use (F11.11) Opioid abuse, in remission (HCC) Current Outpatient Medications: cholecalciferol, Vitamin D3, (VITAMIN D3) 1,250 mcg (50,000 unit) cap capsule acetaminophen (TYLENOL EXTRA STRENGTH) [address] (PROTONIX) 40 mg tablet QUEtiapine XR (SEROQUEL XR) 400 mg 24 hr tablet FLUoxetine HCl (PROZAC) 40 mg capsule OXcarbazepine (TRILEPTAL) 600 mg tablet gabapentin (NEURONTIN) 300 mg capsule diphenhydrAMINE (BENADRYL) 25 mg capsule Current Facility-Administered Medications: perflutren lipid microspheres 1.3 mL in NaCl (PF) 0.9% 10 mL injection (DEFINITY) sodium chloride 0.9 % (flush) 10 mL (BD POSIFLUSH) diphenhydrAMINE 50 mg injection (BENADRYL) EPINEPHrine 0.3 mg injection (EPIPEN) hydrocortisone sodium succinate (PF) 100 mg injection (Solu-CORTEF) NaCl 0.9% iv infusion NaCl (PF) 0.9% 10-20 mL injection Medication Changes: No change in medications Plan/Recommendations: Sections of plan initially documented at initial evaluation on 12/18/21. It was confirmed to be accurate at the current appointment. 1) REQUIREMENTS FOR COMPLETING BEHAVIORAL HEALTH EVALUATION: *Establish with psychotherapy to addresshistory of trauma *On waiting list *Ongoing psychotropic medication management by psychiatric medication provider with documentation--MET *Follow-up nicotine test *Substance Risk Reduction Group--MET *Copy of medical marijuana card--MET *Additional requirements may arise in course of treatment. 2) The patient may benefit from the following during the surgery process: *Participation in a Weight Loss Surgery support group *Continue exercise program *Follow up with psychology as an inpatient if needed *Follow up with psychology at 1, 3, 6, and 12 months postsurgery *Do not use alcohol, tobacco, and street drugs for 3 to 6 months prior to and after surgery. 3) Insurance letter not completed at this time. Patient needs to complete additional preparation asoutlined above. Tamela Reyes, Ph.D., Clinical Psychologist documented in this encounterK[facility]22 History of Present illness Narrative* Tamela Reyes, PhD - 03/08/2022 11:50 AM EDT Vinnie Olivarez [id number] [facility] SUBSTANCE RISK REDUCTION GROUP: SESSION 1 SESSION TIME: 10:30am to 12:00pm 03/08/2022 CPT CODE: 41368 Group Psychotherapy BILLING CODE: Eric Chief Complaint: pre-surgical preparation (helping reduce risk of substance abuse following surgery) Number of participants in group: 6 This appointment was conducted remotely via video virtual visit due to outbreak of COVID-19. Patient agreed to distance mental health visit. Prior to initiating the appointment, patient identity was established using name and date of .Patient was encouraged to move to a quiet place free of distractions. Provided patient with number to call in case of disconnection ([phone]) and obtained alternate phone number from patient (n/a, patient requested call back on [phone]). He reported he was at the following location: home ([address] [address]) Patient identified the following plan to follow in case of emergency: Go to emergency room or call 911 Closest emergency room: [facility] Emergency Contact Information Primary Emergency Contact: Kelly Olivarez Address: [address] [place] [address] [place] Mobile Relation: Spouse Secondary Emergency Contact: Bettina Cherry Mobile Relation: Mother Subjective: Vinnie Olivarez participated in substance risk reduction group discussing the effects of alcohol, tobacco, marijuana, and other substances on his bariatric surgery. The concept of addictiontransfer was discussed along with warning signs of addiction and relapse prevention. Patients shared coping strategies for stress management as well as strategies for avoiding substance abuse. Resources for addiction services were given to all patients, along with Facts about Alcohol and BariatricSurgery, Facts about Tobacco Use & Your Bariatric Surgery, Rethinking Drinking, and articles about addiction transfer. He noted he was currently drinking 1-2 drinks/sitting 1-2x/6 month(s). He noted no current tobacco use and current medical marijuana use. Objective: Vinnie Olivarez paid appropriate attention during the group, and made contributions to thediscussion. He was open to contributing to discussion on changes in alcohol absorption post-surgery, as well as discussion of reducing risk for addiction and non-substance addictive behaviors. He noted that he was not likely to use tobacco after surgery. He noted he was not likely to use alcohol after surgery. He noted that he was not likely to use drugs after surgery. Assessment: (F54) Psychological factors affecting medical condition (primary encounter diagnosis) (E66.01, Z68.41) Class 3 severe obesity with serious comorbidity and body mass index (BMI) of 40.0 to 44.9 in adult, unspecified obesity type (HCC) (F31.9) Bipolar disorder with psychotic features (HCC) (F43.10) PTSD (post-traumatic stress disorder) (F17.211) Cigarette nicotine dependence in remission (Z79.899) Medical marijuana use (F11.11) Opioid abuse, in remission (HCC) Plan: Follow-up as scheduled. Tamela Reyes, Ph.D., Clinical Psychologist documented in this encounterK[facility]08-10-2022 History of Present illness Narrative* Tamela Reyes, PhD - 02/21/2022 3:04 PM EDT Images from the original note were not included. Tamela Reyes, Ph.D., Clinical Psychologist [facility] [address] [place] [address], [address] [place] [address] [facility] Progress Note February 21, 2022 BILLING CODE: Eric CPT Code: 15451 Psychotherapy 38-52 minutes Chief Complaint: Presurgical preparation focused on behavior change; stress management/coping; regulating eating patterns Time initiated session: 3:00pm to 3:47pm Date of First Session: 12/18/21 (initial evaluation) Session #: 3 This appointment was conducted remotely via video virtual visit due to outbreak of COVID-19. Patient agreed to distance mental health visit. Prior to initiating the appointment, patient identity was established using name and date of .Patient was encouraged to move to a quiet place free of distractions. Provided patient with number to call in case of disconnection ([phone]) and obtained alternate phone number from patient (n/a, patient requested call back on [phone]). He reported he was at the following location: home ([address] [address]) Patient identified the following plan to follow in case of emergency: Go to emergency room or call 911 Closest emergency room: [facility] Contact Information Primary Emergency Contact: Kelly Olivarez Address: [address] [place] [id number] [place] [address] [place] Relation: Spouse Secondary Emergency Contact: Bettina Cherry Mobile Relation: Mother Collateral Parties Present: none. Subjective: Patient reported that he has been focusing on making changes in line with recommendations but has been experiencing a very high level of stress at work related to low staffing and other changes. He also reported a very high level of financial stress and has been struggling with paying bills. He does report recently receiving a promotion at work and is excited about improved income and changes andresponsibilities. He reported struggling with tracking his food during this time, but does report he has been continuing to focus on making healthy food choices, even while struggling with tracking. Patient has not yet established with trauma counseling. We did get a copy of his medical records from his psychiatrist, which indicated overall stability. He understands the importance of establishingwith trauma counseling for additional support with processing history of trauma and with overall emotion regulation. He plans to call today to schedule. Patient did need to reschedule the SRR group and is rescheduled for the end of this month. He continues to deny current substance use outside of marijuana for medical use. Validated patient's emotions and experiences and engaged in reflective listening as he explored hisconcerns. Reinforced focus on making healthy choices, and engaged in motivational interviewing to identify factors supporting changes, as well as barriers to change. Explored ongoing use of effective, healthy stress management skills, and encouraged patient to continue using healthy skills to manage stress. Specifically explored behavioral strategies to decrease the amount of energy needed for behavior change, including stimulus control and using strategies to plan ahead. Overall, patient is hopeful that some changes at work will lower his stress level and allow him to spend more time prioritizing his physical health. He also plans to call the [facility] today to schedule with counseling for trauma. He continues to deny nicotine use and plans to have the nicotine screen completed inthe next few days. A follow-up appointment was set to check in on progress with changes and to explore any barriers to change. Encouraged patient to check in prior to this appointment as needed/desired. Patient mood is: somewhat anxious. Affect is: Mood congruent. Patient denies any suicidal or homicidal ideation, plan or intent at this time. Objective: Assessment: (F54) Psychological factors affecting medical condition (primary encounter diagnosis) (E66.01, Z68.41) Class 3 severe obesity with serious comorbidity and body mass index (BMI) of 40.0 to 44.9 in adult, unspecified obesity type (HCC) (F31.9) Bipolar disorder with psychotic features (HCC) (F43.10) PTSD (post-traumatic stress disorder) (F17.211) Cigarette nicotine dependence in remission (Z79.899) Medical marijuana use (F11.11) Opioid abuse, in remission (HCC) Current Outpatient Medications: cholecalciferol, Vitamin D3, (VITAMIN D3) 1,250 mcg (50,000 unit) cap capsule ferrous sulfate 325 mg (65 mg iron) tablet acetaminophen (TYLENOL EXTRA STRENGTH) [address] (PROTONIX) 40 mg tablet QUEtiapine XR (SEROQUEL XR) 400 mg 24 hr tablet FLUoxetine HCl (PROZAC) 40 mg capsule OXcarbazepine (TRILEPTAL) 600 mg tablet gabapentin (NEURONTIN) 300 mg capsule diphenhydrAMINE (BENADRYL) 25 mg capsule Current Facility-Administered Medications: perflutren lipid microspheres 1.3 mL in NaCl (PF) 0.9% 10 mL injection (DEFINITY) sodium chloride 0.9 % (flush) 10 mL (BD POSIFLUSH) diphenhydrAMINE 50 mg injection (BENADRYL) EPINEPHrine 0.3 mg injection (EPIPEN) hydrocortisone sodium succinate (PF) 100 mg injection (Solu-CORTEF) NaCl 0.9% iv infusion NaCl (PF) 0.9% 10-20 mL injection Medication Changes: No change in medications Plan/Recommendations: Sections of plan initially documented at initial evaluation on 01/04/22. It was confirmed to be accurate at the current appointment. 1) REQUIREMENTS FOR COMPLETING BEHAVIORAL HEALTH EVALUATION: *Establish with psychotherapy to addresshistory of trauma *Will call today *Ongoing psychotropic medication management by psychiatric medication provider with documentation *Follow-up nicotine test *Ongoing follow-up with nutrition to address unhealthy eating and activity patterns *Substance Risk Reduction Group (to schedule, call [phone]) *February *Copy of medical marijuana card--MET *Follow-up after group (March) *Additional requirements may arise in course of treatment. 2) The patient may benefit from the following during the surgery process: *Participation in a Weight Loss Surgery support group *Continue exercise program *Follow up with psychology as an inpatient if needed *Follow up with psychology at 1, 3, 6, and 12 months postsurgery *Do not use alcohol, tobacco, and street drugs for 3 to 6 months prior to and after surgery. 3) Insurance letter not completed at this time. Patient needs to complete additional preparation asoutlined above. Tamela Reyes, Ph.D., Clinical Psychologist documented in this encounterK[facility]08-10-2022 Miscellaneous Notes* Telephone Encounter - Marie Strauss - 02/21/2022 9:01 AM EDT Gave paper prep for EGD and Colonoscopy documented in this encounterK[facility]08-10-2022 Miscellaneous Notes* Addendum Note - Marie Strauss - 02/21/2022 9:00 AM EDTAddended by: MARIE REED on: 02/21/2022 09:00 AM Modules accepted: Orders documented in this encounterK[facility]08-10-2022 Instructions* Patient Instructions* Pam Schroeder MD - 02/21/2022 8:36 AM EDT Images from the original note were not included. Bowel Preparation Instructions for: Miralax-Gatorade Preparations IF YOU DO NOT FOLLOW THESE DIRECTIONS, YOUR COLONOSCOPY WILL BE CANCELLED. Antonio Instructions: Your bowel must be empty so that your doctor can clearly view your colon. Follow all of the instructions in this handout EXACTLY as they are written. Do NOT eat any solid food the ENTIRE day before your colonoscopy. Buy your bowel preparation at least 5 days before your colonoscopy. Four (4) Dulcolax laxative tablets containing 5mg of bisacodyl each (NOT Dulcolax stool softener) One (1) 8.3oz. bottle Miralax (238 grams) or generic equivalent 2 x 32oz. Bottles of Gatorade (NOT RED) Diabetic Patients: Use G2 (Gatorade 2) TRANSPORTATION on the Day of Your Exam A responsible adult MUST be present with you at Check In prior to your colonoscopy and REMAIN in the endoscopy area until you are discharged. You are NOT ALLOWED to drive, take a taxi or bus, or leave the Endoscopy Center ALONE. If you do not have a responsible driver operator (family member or friend) withyou to take you home, your exam cannot be done with sedation and will be cancelled. Please bring a list of all of your current medications, including any Syyh-wog-Skvzdqi medications with you. Medications If you take insulin, diabetic medications or blood thinners such as Coumadin (warfarin), Plavix (clopidogrel), Ticlid (ticlopidine hydrochloride), Agrylin (anagrelide), Xarelto (Rivaroxaban), Pradaxa(Dabigatran), Eliquis (Apixaban), and Effient (Prasugrel). You MUST call the doctors who orders those medicines for instructions on altering the dosage before your colonoscopy. All other medications should be taken the day of the exam with a sip of water including ASPIRIN. Five (5) Days Before Your Colonoscopy Do NOT take medicines that stop diarrhea - such as Imodium, Kaopectate, or Pepto Bismol. Do NOT take fiber supplements - such as Metamucil, Citrucel, or Perdiem. Do NOT take products that contain iron - such as multi-vitamins (the label lists what is in the products). Three (3) Days Before Your Colonoscopy Do NOT eat high-fiber foods - such as popcorn, beans, seeds (flax, sunflower, quinoa), multigrain bread, nuts, salad/vegetables, or fresh and dried fruit. 1 Bowel Preparation Instructions for: Miralax-Gatorade Preparations One (1) Day Before Your Colonoscopy Only drink clear liquids the ENTIRE DAY before your colonoscopy. Do NOT eat any solid foods. Drink at least 8 ounces of clear liquids every hour after waking up. The clear liquids you can drink include: Clear Liquid (NO RED LIQUIDS) DO NOT DRINK Gatorade, Pedialyte or Powerade Clear broth or bouillon Coffee or tea (no milk or non-dairy creamer) Carbonated and non-carbonated soft drinks Moses-Aid or other fruit flavored drinks Strained fruit juices (no pulp) Jell-O, popsicles, hard candy Water Alcohol Milk or non-dairy creamers Noodles or vegetables in soup Juice with pulp Liquid you cannot see through Do not use tobacco/vaping products Mix 1/2 of Miralax bottle (119 grams) in each 32 ounces of Gatorade bottle until dissolved. Keep cool in the refrigerator. DO NOT ADD ICE. The bowel preparation solution will be consumed in two parts. Part 1 5:00 PM - Evening before your colonoscopy Take 4 Dulcolax tablets. 6 PM - Evening before your colonoscopy Drink 32 oz. of the mixed solution. Drink an 8 oz. glass of bowel preparation every 15 minutes for a total of 4 glasses. Fifteen (15) minutes later, drink an 8 oz. glass of of clear liquids every 15 minutes for a total of 2 glasses. You may continue to drink clear liquids till midnight. Part 2 On the day of your colonoscopy you may drink clear liquids up to (three) 3 hours prior to procedure. 4 1/2 hours before your colonoscopy Take another 32 oz. bottle of mixed solution. Drink an 8 oz. glass of bowel prep every 15 minutes for a total of 4 glasses. Fifteen (15) minutes later, drink an 8 oz. glass of clear liquids every 15 minutes for a total of 2glasses. You may continue to drink clear liquids up to (three) 3 hours before your exam. 2 06/2019 documented in this encounterK[facility]08-10-2022 History of Present illness Narrative* Pam Schroeder MD - 02/21/2022 8:13 AM EDT BARIATRIC SURGERY NEW PATIENT CONSULTATION HISTORY AND PHYSICAL Date: February 21, 2022 Time: 8:13 AM Vinnie Olivarez is a 36 year old year old male with obesity (Body mass index is 40.73 kg/m .), HTN (now off all meds), bipolar disorder (prozac, trileptal, Seroquel XR, gabapentin), GERD (Protonix), hiatal hernia, obesity (BMI 41.14 down to 40.73), TIFFANIE (nightly CPAP), DDD of lower spine, and hx kidney stones who presents to the clinic today for follow up after HIDA scan. He is working towards bariatric surgery. I last saw him in clinic on 08/01/21 and at that time he had started the bariatric program and was working on accomplishing these requirements. Today he is here to review the HIDA scan results - he had previous RUQ/epigastric pain and gallbladder sludge on RUQ US. The HIDA scan is negative for abnormality. He states the previous RUQ/epigastric pain is much improved. He underwent cardiac catheterization on 02/07/22 and this was found to be WNL. He is also here to discuss the need for colonoscopy given previously low iron studies and anemia. Regarding anemia, hgb is 11 on 02/07/22; iron was 103 on 12/20 (WNL); ferritin 8.7 on 12/20; and TIBC 385 (WNL). He had a colonoscopy years ago (does not recall when) he denies change in stool caliber and characteristic and had no family history of colon cancer. He does have a history of gastric ulcers and duodenitis - he was, however, smoking at that time and has since stopped. He states his stillsmokes around him. He says he has stopped since April 2022. He also still needs nicotine test, repeat labs, and multiple clearances (psychology, nutrition, pulmonology, hematology) before he can consent. Today he endorses resolution of previous post COVID cough and SOB. Symptoms of GERD are ongoing, but much improved - he is no longer requiring TUMs as he used to and is now using only Protonix. Please see my previous clinic note for his full history: The patient endorses a 18 + year history of acid reflux. The symptoms which are most severe for him are the acid reflux and nocturnal regurgitation (acid and partially digested food). He also endorses belching, sour taste in his mouth, and nocturnal coughing. He also endorses dysphagia with solids which occurs daily. He takes Protonix 40 mg daily and PRN Tums with a decrease in his symptoms. CT scan on 08/11/2020 demonstrates a large hiatal hernia. He underwent EGD in the distant past at [facility]. He was told at that time that he had a sliding hiatal hernia and a gastric ulcer. Social: 1 ppd x 24 years (working on cessation); sporadic etoh use 1-3 times per year; 1/2 gram marijuana use daily (does not have medical MJ card currently); denies other illicit drug use. PSHx: left adrenalectomy (Tim), tonsillectomy, lithotripsy (2020) PAST MEDICAL HISTORY Diagnosis Date Back pain extra vertebrae in my lower back. 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 Verdin EGD EGD WITH BIOPSY(S) 06/16/2021 6 cm paraesophageal hernia, Joni's erosions, duodenitis; Dr. Schroeder LITHOTRIPSY Right 11/15/2020 kidney; Dr. Gillette SCREENING COLONSCOPY NOT HIGH RISK TONSILLECTOMY AND ADENOIDECTOMY HX FAMILY HISTORY Problem Relation Age of Onset Heart Attack Mother Osteoporosis Mother COPD Mother Heart Father [place], CABG x 4 Social History Tobacco Use Smoking status: Former Packs/day: 1.00 Years: 23.00 Pack years: 23.00 Types: Cigarettes Quit date: 03/29/2021 Years since quittin.9 Smokeless tobacco: Never Vaping Use Vaping Use: Never used Substance Use Topics Alcohol use: Yes Comment: rarely Drug use: Yes Types: Marijuana Comment: rarely Current Outpatient Medications Medication Sig cholecalciferol, Vitamin D3, (VITAMIN D3) 1,250 mcg (50,000 unit) cap capsule Take 1 capsule by mouth one time a week for 12 doses. Transition to 2,000-4,000 units of Vitamin D OTC after completing 12 weeks ferrous sulfate 325 mg (65 mg iron) tablet Take 1 tablet by mouth daily at bedtime. Do no take within two hours of calcium supplement acetaminophen (TYLENOL EXTRA STRENGTH) 500 mg tablet Take 500 mg by mouth every 8 hours as needed. pantoprazole DR (PROTONIX) 40 mg tablet Take 1 tablet by mouth once daily. QUEtiapine XR (SEROQUEL XR) 400 mg 24 hr tablet TAKE 1 TABLET BY MOUTH ONCE DAILY AT BEDTIME FLUoxetine HCl (PROZAC) 40 mg capsule Take 1 capsule by mouth once daily. OXcarbazepine (TRILEPTAL) 600 mg tablet 300mg qam 900mg qpm gabapentin (NEURONTIN) 300 mg capsule Take 1 capsule by mouth three times daily for 30 days. (Patient taking differently: Take 300 mg by mouth three times daily. Once daily, second and third dose as needed) diphenhydrAMINE (BENADRYL) 25 mg capsule Take 25 mg by mouth at bedtime as needed. Current Facility-Administered Medications Medication Dose Route Frequency perflutren lipid microspheres 1.3 mL in NaCl (PF) 0.9% 10 mL injection (DEFINITY) INTRAVENOUS DIRECTED PRN sodium chloride 0.9 % (flush) 10 mL (BD POSIFLUSH) 10 mL INTRAVENOUS DIRECTED PRN diphenhydrAMINE 50 mg injection (BENADRYL) 50 mg INTRAVENOUS PRN EPINEPHrine 0.3 mg injection (EPIPEN) 0.3 mg INTRAMUSCULAR PRN hydrocortisone sodium succinate (PF) 100 mg injection (Solu-CORTEF) 100 mg INTRAVENOUS PRN NaCl 0.9% iv infusion 500-999 mL/hr INTRAVENOUS PRN NaCl (PF) 0.9% 10-20 mL injection 10-20 mL INTRAVENOUS PRN ALLERGIES Allergen Reactions Cinnamon Swelling Codeine Unknown Pt does not want due to multiple family members allergic Review of Systems Cardiovascular: Positive for chest pain (related to GERD). Gastrointestinal: Positive for heartburn and vomiting (regurgitation). Musculoskeletal: Positive for back pain. Psychiatric/Behavioral: Positive for depression. Physical Exam Vitals reviewed. Constitutional: Appearance: Normal appearance. He is obese. HENT: Head: Normocephalic and atraumatic. Eyes: General: No scleral icterus. Extraocular Movements: Extraocular movements intact. Conjunctiva/sclera: Conjunctivae normal. Pupils: Pupils are equal, round, and reactive to light. Cardiovascular: Rate and Rhythm: Normal rate. Pulmonary: Effort: Pulmonary effort is normal. No respiratory distress. Skin: General: Skin is warm and dry. Coloration: Skin is not jaundiced or pale. Neurological: General: No focal deficit present. Mental Status: He is alert and oriented to person, place, and time. Psychiatric: Mood and Affect: Mood normal. Behavior: Behavior normal. Required monthly visits: 6 of 6 months. Patient is interested in: Gastric Bypass w/ PEHR EGD: Paraesophageal hernia - 6 cm; Antral gastritis; Gastric body erosions; Joni's erosions; Duodenitis Upper GI: n/a RUQ US: IMPRESSION: fatty liver Mild gallbladder sludge. No shadowing gallstone or convincing sonographic evidence for acute cholecystitis.No biliary dilation. HIDA: Normal gallbladder functional response/EF is not a typical scintigraphic finding of chronic cholecystitis. Clinical correlation is recommended. Patent CBD. Sleep Study: Known TIFFANIE, uses CPAP CXR:per pulm clearance-needs to reschedule EKG:per cardiac clearance Heart cath 02/08: Normal - no CAD H Pylori negative. Labs: iron def anemia, Vit D def Nicotine use <12 months: Yes--nicotine test ordered--+cotinine (232); will need repeat Tox screen: + marijuana, otherwise negative Marijuana use: Yes--medical marijuana card is scanned in Antiplatelet/anticoagulants: No Immunosuppressive therapy: No Estrogen therapy: No Evaluations Psychology: ongoing Nutrition: ongoing Education class: ongoing Clearances: Cardiac (low- telephone encounter 02/08), Endo (12/27 low), Hematology (x3 DVT, needs to schedule), Pulmonary (pending PFTs) and PCP Risk Calculator: VTE Risk: hx DVT COVID-19 Risk 3 Post-op Medications: Extended Lovenox: Will require, history of DVT Actigall: Yes H2 serge/PPI: On PPI Plan IMPRESSION: Vinnie Olivarez is a 36 year old year old male who presents for consideration of bariatric surgery (Body mass index is 40.73 kg/m .). He does meet the criteria for a surgical weight loss procedure according to NIH guidelines. The plan of treatment for Vinnie is to continue with the consultations and tests ordered today in hopes of qualifying for pre-operative clearance for bariatric surgery. He is interested in: Shahab-En-Y Gastric bypass ASSESSMENT/PLAN: 1. Anemia, unspecified type - ICD9: 285.9, ICD10: D64.9 (primary diagnosis) - On last EGD he had gastric erosions and duodenitis. He remains anemic and hgb continues to remainlow, so will repeat EGD and also perform Colonoscopy - EGD DIAGNOSTIC - COLONOSCOPY DIAGNOSTIC 2. Duodenitis without bleeding - ICD9: 535.60, ICD10: K29.80 - On last EGD he had gastric erosions and duodenitis. His Hgb continues to remain low, so will repeat EGD and Colonoscopy 3. Gastroesophageal reflux disease without esophagitis - ICD9: 530.81, ICD10: K21.9 - Discussed lifestyle modifications including losing weight, limiting caffeine, no meals three hours before sleep, and head of bed elevation - Continue treatment with Protonix Daily 4. Hiatal hernia - ICD9: 553.3, ICD10: K44.9 - Known hiatal hernia which I will repair in combination with RYGB 5. Class 3 severe obesity due to excess calories with serious comorbidity and body mass index (BMI)of 40.0 to 44.9 in adult (HCC) - ICD9: 278.01, V85.41, ICD10: E66.01, Z68.41 - Weight decreasing - He is doing well in the bariatric program but does have several things he must complete prior to obtaining bariatric clearance - psychology, nutrition, pulmonology, hematology are still pending 6. Iron deficiency anemia, unspecified iron deficiency anemia type - ICD9: 280.9, ICD10: D50.9 - Due to Iron deficiency anemia, will obtain EGD and Colonoscopy - COLONOSCOPY DIAGNOSTIC 7. Tobacco abuse, in remission - ICD9: V15.82, ICD10: F17.201 - Cessation encouraged. - Physiologic and physical aspects of tobacco addiction as well as strategies for quitting were discussed. - Counseling was given focusing on the harmful effects of this addiction especially given the patient's medical condition(s) which will be worsened because of the chemicals in tobacco. - He has stopped smoking, but his continues to smoke and he is exposed to second hand smoke - He needs to complete a nicotine test. Nutrition Counseling Practice these: - Eat 3 meals daily--can use approved/recommended protein shake as 1 meal replacement (should be <200 calories, 20-30g protein, <5g added sugar) - Keep a food journal 5-7x/week (consider General Compression or [employer] goldie) and demonstrate meeting protein goal (60-90g protein for females, 70-105g protein for males)- Lean meats, fish, low fat dairy - cottage cheese, Nigerian yogurt, light yogurt, cheese, ricotta cheese, nuts, peanut butter, beans/legumes. Eat protein first at all meals. and 64oz of caffeine-free, carbonation-free fluids at least 5 days per week - engage in formal, planned exercise 5x/week for 30 minutes of cardiovascular activity OR 150+ minutes of cardiovascular activity per week - eliminate all caffeine, carbonation, alcohol and sugar-containing beverages from diet --consider sugar-free drink mixes, water, decaf coffee and tea - Separate eating and drinking by 30 minutes - Chew your food 20-30x per bite - Sip beverages slowly--no guzzling or gulping Information regarding probable and potential postoperative complications, dietary and medical postoperative limitations, and potential cosmetic sequelae has been received by individual. Medical Decision Making: Problems: Moderate: 2+ stable chronic illnesses Data: Unique source(s) for external note(s) reviewed: 2 Unique test result(s) reviewed: 2 Unique test(s) ordered: 2 Discussed management or test w/ external physician/QHCP/source Risk: Moderate: Moderate risk from testing/treatment Medical Decision Making Level: 4 - Moderate Pam Schroeder MD Advanced Laparoscopic and Bariatric Surgery * Debra Crocker APRN.MARISOL - 02/21/2022 8:00 AM EDT Here today to review HIDA scan results (previous RUQ/epigastric pain, gallbladder sludge on RUQ US)and assess need for colonoscopy given previously low iron studies and anemia. Still needs nicotine test, repeat labs, and multiple clearances (psychology, nutrition, pulm hematology) before he can con sent. Required monthly visits: 6 of 6 months. Patient is interested in: Gastric Bypass w/ PEHR EGD: POSTOPERATIVE DIAGNOSIS: 1. Severe obesity 2. GERD 3. Paraesophageal hernia - 6 cm 4. Antral gastritis 5. Gastric body erosions 6. Joni's erosions 7. Duodenitis Upper GI: n/a RUQ US: IMPRESSION: fatty liver Mild gallbladder sludge. No shadowing gallstone or convincing sonographic evidence for acute cholecystitis.No biliary dilation. HIDA: Normal gallbladder functional response/EF is not a typical scintigraphic finding of chronic cholecystitis. Clinical correlation is recommended. Patent CBD. Sleep Study: Known TIFFANIE, uses CPAP CXR:per pulm clearance-needs to reschedule EKG:per cardiac clearance Heart cath 02/08: Normal - no CAD H Pylori negative. Labs: iron def anemia, Vit D def Nicotine use <12 months: Yes--nicotine test ordered--+cotinine (232); will need repeat Tox screen: + marijuana, otherwise negative Marijuana use: Yes--medical marijuana card is scanned in Antiplatelet/anticoagulants: No Immunosuppressive therapy: No Estrogen therapy: No Evaluations Psychology: ongoing Nutrition: ongoing Education class: ongoing Clearances: Cardiac (low- telephone encounter 02/08), Endo (12/27 low), Hematology (x3 DVT, needs to schedule), Pulmonary (pending PFTs) and PCP Risk Calculator: VTE Risk: hx DVT COVID-19 Risk 3 Post-op Medications: Extended Lovenox: Will require, history of DVT Actigall: Yes H2 serge/PPI: On PPI Debra Crocker APRN.DYNAMITER documented in this encounterK[facility]-28-2022 Miscellaneous Notes* Telephone Encounter - Rachael Maza LPN - 02/08/2022 10:21 AM EDT Spoke with pt about test results, recommendations, and surgical clearance approval. Pt verbalizes understanding and is agreeable. Rachael Maza LPN * Telephone Encounter - Rachael Maza LPN - 02/08/2022 9:35 AM EDT Voicemail msg left for pt to return call to [facility] to review test results and recommendations. Office phone number provided. Rachael Maza LPN * Telephone Encounter - Rachael Maza LPN - 02/08/2022 9:34 AM EDT ----- Message from Franklyn Coyne MD sent at 02/08/2022 9:31 AM EDT ----- Can you please let Mr. Olivarez know that his Echocardiogram revealed normal LV function and no significant valve disease. His cardiac catheterization otherwise revealed no significant coronary artery disease (false positive stress test). Given the above, he will be at overall low risk of cardiac complications from an anticipated moderate risk bariatric surgery procedure. I will send a letter to his surgeon in this regards. Thanks, Franklyn Coyne MD documented in this encounterKettering [facility]07-20-2022 History of Present illness Narrative* Debra Crocker, GATHERING MACHINE FEEDER.DYNAMITER - 01/31/2022 2:03 PM EDT BARIATRIC SURGERY CLINIC FOLLOW UP NOTE DISTANCE HEALTH VISIT This Team Access Model visit is a virtual encounter. It required patient- provider interaction for the medical decision making as documented below. Consent was obtained to complete today's distance health visit. HPI: Vinnie Olivarez a 36 year old male for presents for medically supervised weight loss treatment of his obesity related co morbidities. This individual presents for month 5 of 6 required visits completed as a virtual telephone encounter Vinnie Olivarez weight calculation has decreased by 12# since his last visit. Last month, he had an episode of chest pain with shortness of breath and dizziness. He did go to [facility] emergency department as she states that testing was unremarkable. He then underwent a stress test which demonstrated mild to moderate reversible myocardial ischemia. He is scheduled f or left heart cath on 02/07. Previously reported RUQ pain has resolved. Repeat iron studies showed great improvement and improvement in hemoglobin. He is scheduled to see Dr. Schroeder in office next month to review HIDA scan and assess need for colonoscopy given previous iron deficiency anemia. He has started taking iron supplement and vitamin D as directed. He denies further illnesses, hospitalizations. He denies worsening acid reflux symptoms, abdominal pain, changes to stool pattern, melena, bright red blood per rectum. He is using CPAP nightly. He is scheduled for PFTs next month- these results are pending his pulmonary clearance He remains nicotine free. He is exposed to secondhand smoke through his who smokes in the house and in the car. He is aware that he needs to have nicotine test repeated to show some decrease in these levels. He will is planning to avoid secondhand smoke as much as possible. HISTORY REVIEWED (electronic chart updated): - medical history - medications - allergies PAST MEDICAL HISTORY Diagnosis Date Back pain extra vertebrae in my lower back. Bipolar disorder ([facility]) Class 3 severe obesity due to excess calories with serious comorbidity and body mass index (BMI) of40.0 to 44.9 in adult ([facility]) DVT (deep venous thrombosis) ([facility]) RLE, multiple per patient but no detention anticoag Essential hypertension Kidney stones Left adrenal mass ([facility]) Paraesophageal hernia 06/16/2021 6 cm Psychiatric disorder Sleep apnea does not use CPAP Tobacco use disorder Social: Social History Tobacco Use Smoking status: Former Smoker Packs/day: 1.00 Years: 23.00 Pack years: 23.00 Types: Cigarettes Quit date: 03/29/2021 Years since quittin.8 Smokeless tobacco: Never Used Vaping Use Vaping Use: Never used Substance Use Topics Alcohol use: Yes Comment: rarely Drug use: Yes Types: Marijuana Comment: rarely Medications: Current Outpatient Medications Medication Sig cholecalciferol, Vitamin D3, (VITAMIN D3) 1,250 mcg (50,000 unit) cap capsule Take 1 capsule by mouth one time a week for 12 doses. Transition to 2,000-4,000 units of Vitamin D OTC after completing 12 weeks ferrous sulfate 325 mg (65 mg iron) tablet Take 1 tablet by mouth daily at bedtime. Do no take within two hours of calcium supplement acetaminophen (TYLENOL EXTRA STRENGTH) 500 mg tablet Take 500 mg by mouth every 8 hours as needed. pantoprazole DR (PROTONIX) 40 mg tablet Take 1 tablet by mouth once daily. QUEtiapine XR (SEROQUEL XR) 400 mg 24 hr tablet TAKE 1 TABLET BY MOUTH ONCE DAILY AT BEDTIME FLUoxetine HCl (PROZAC) 40 mg capsule Take 1 capsule by mouth once daily. OXcarbazepine (TRILEPTAL) 600 mg tablet 300mg qam 900mg qpm gabapentin (NEURONTIN) 300 mg capsule Take 1 capsule by mouth three times daily for 30 days. (Patient taking differently: Take 300 mg by mouth three times daily. Once daily, second and third dose as needed) diphenhydrAMINE (BENADRYL) 25 mg capsule Take 25 mg by mouth at bedtime as needed. Current Facility-Administered Medications Medication Dose Route Frequency perflutren lipid microspheres 1.3 mL in NaCl (PF) 0.9% 10 mL injection (DEFINITY) INTRAVENOUS DIRECTED PRN sodium chloride 0.9 % (flush) 10 mL (BD POSIFLUSH) 10 mL INTRAVENOUS DIRECTED PRN diphenhydrAMINE 50 mg injection (BENADRYL) 50 mg INTRAVENOUS PRN EPINEPHrine 0.3 mg injection (EPIPEN) 0.3 mg INTRAMUSCULAR PRN hydrocortisone sodium succinate (PF) 100 mg injection (Solu-CORTEF) 100 mg INTRAVENOUS PRN NaCl 0.9% iv infusion 500-999 mL/hr INTRAVENOUS PRN NaCl (PF) 0.9% 10-20 mL injection 10-20 mL INTRAVENOUS PRN REVIEW OF SYSTEMS General: No fatigue or fevers HEENT: Negative for frequent or significant headaches, No changes in hearing or vision, no nose bleeds or other nasal problems PAP Therapy: Using it nightly. GI:No nausea, vomiting, or diarrhea and No heartburn or reflux symptoms Muskuloskeletal: Negative for joint pain or swelling, back pain or muscle pain Skin: Negative for lesions, rash, and itching Psych: Negative for sleep disturbance, mood disorder and recent psychosocial stressors PHYSICAL EXAMINATION Wt 130.6 kg (288 lb) BMI 40.17 kg/m2 Ht 180.3 cm (5' 11) BMI 40.17 kg/m2 GENERAL APPEARANCE: Pleasant, interacts appropriately and in no apparent distress. Appropriately groomed, happy, smiling, and interactive SKIN: Skin of normal texture, temperature without rashes/lesions/ulcerations. LUNGS: unlabored on room air negative findings: normal respiratory rate no cough NEURO/PSYCH: Oriented to person, place, time; appropriate insight and judgement. Appropriate affect. Diagnostic Tests Reviewed for Today's Visit Most recent lab and imaging results The plan of treatment for Vinnie Olivarez is Further Work-up: Required monthly visits: 5 of 6 months. Patient is interested in: Gastric Bypass w/ PEHR EGD: POSTOPERATIVE DIAGNOSIS: 1. Severe obesity 2. GERD 3. Paraesophageal hernia - 6 cm 4. Antral gastritis 5. Gastric body erosions 6. Joni's erosions 7. Duodenitis Upper GI: n/a RUQ US: IMPRESSION: fatty liver Mild gallbladder sludge. No shadowing gallstone or convincing sonographic evidence for acute cholecystitis.No biliary dilation. MRCP: Normal gallbladder functional response/EF is not a typical scintigraphic finding of chronic cholecystitis. Clinical correlation is recommended. Patent CBD. Sleep Study: Known TIFFANIE, uses CPAP CXR:per pulm clearance-needs to reschedule EKG:per cardiac clearance --normal scanned in-will schedule stress test H Pylori negative. Labs: iron def anemia, Vit D def, colonoscopy on hold for hgb 9.0--will recheck these, orders placed Nicotine use <12 months: Yes--nicotine test ordered--+cotinine (232); will need repeat Tox screen: + marijuana, otherwise negative Marijuana use: Yes--medical marijuana card is scanned in Antiplatelet/anticoagulants: No Immunosuppressive therapy: No Estrogen therapy: No Evaluations Psychology: ongoing Nutrition: ongoing Education class: ongoing Clearances: Cardiac (heart cath 02/07), Endo (12/27 low), Hematology (x3 DVT), Pulmonary (pending PFTs) and PCP Risk Calculator: VTE Risk: hx DVT COVID-19 Risk 3 Post-op Medications: Extended Lovenox: Will require, history of DVT Actigall: Yes H2 serge/PPI: On PPI ASSESSMENT/PLAN: 1. Class 3 severe obesity due to excess calories with serious comorbidity and body mass index (BMI)of 40.0 to 44.9 in adult (HCC) - ICD9: 278.01, V85.41, ICD10: E66.01, Z68.41 (primary diagnosis) Weight decreasing - Behavioral intervention and - Medical nutrition therapy with dietitian - Continue making efforts towards recommended behavior and nutrition changes 2. Sleep apnea, unspecified type - ICD9: 780.57, ICD10: G47.30 - Uses CPAP nightly - Requesting pulmonary clearance (PFTs are scheduled) 3. Myocardial ischemia - ICD9: 414.8, ICD10: I25.9 - Scheduled for heart cath on 02/07 - Requesting cardiac clearance 4. Disorder of adrenal gland (HCC) - ICD9: 255.9, ICD10: E27.9 - Received clearance from endocrinology 5. Tobacco abuse, in remission - ICD9: V15.82, ICD10: F17.201 - he remains nicotine free - Nicotine test came back with elevated levels. He is exposed to secondhand smoke through his on a daily basis. He is aware to have nicotine test repeated and it must show decrease in his levels. He will attempt to avoid secondhand smoke as much as possible. 6. History of DVT (deep vein thrombosis) -Still needs to schedule with hematology for preoperative clearance Still needs repeat nicotine test, repeat iron studies and CBC, clearance from psychology, nutrition, cardiology, pulmonology, and hematology. Follow-up with [facility] next month to review test results and clearance status. He is scheduled to see Dr. Almendarez on 02/21 to review HIDA scan results and assess need for colonoscopy given previously low iron studies and anemia. Debra Crocker APRN.CNP Total time in direct patient contact = 15 min. Greater than 50% of the time was spent in counselingand/or coordination of care. This note was generated using voice recognition technology and may contain grammatical errors. Medical Decision Making: Problems: Moderate: 2+ stable chronic illnesses Data: Unique source(s) for external note(s) reviewed: 1 Unique test result(s) reviewed: 1 Assessment requiring an independent historian(s) Risk: Minimal: Minimal risk from testing/treatment Medical Decision Making Level: 4 - Moderate documented in this encounterCleveland [id number] History of Present illness Narrative* Leyla Small, RD - 01/31/2022 1:30 PM EDT Vinnie Olivarez This patient encounter was completed virtually using a secure, HIPPA compliant video chat software program with the patient's consent. Pre-Op weight goal: 285 lbs Education Class: Patient will receive instruction regarding healthy food choices and eating behaviors identified as optimal when preparing for surgery, losing weight after surgery, and maintaining weight loss long-term. Patient will also receive instruction regarding the Bariatric Full Liquid diet following surgery and optimal post-operative high-protein supplement choices. Education class to be completed prior to surgery. Behaviors Accomplished: Visit # 5/6 Date: 01/31/22 Weight: 288lbs Weight goal met: No , down 16# since last RD visit 11/16, 3# above GW Behaviors that helped/hindered weight loss: hindered Tracking meals daily, meeting proetin/fluid goals, endorsing in planned/formal exercise, eliminate caff/carbonation 24 hr recall: 01/30/22 B: breakfast sandwich ([employer]) -- (17g) L: skipped d/t work D: irish chicken lo mein -- (14g) F: (caf) ice tea (33) + 4 water bottles == 68 oz - 33= 35 oz Protein per recall:~ 31g Protein intake:could not review food journal Exercise: no planned exercise, works an active job at this time, was walking at night for 30 min/5xweek -- did encourage to get back into walking at night for 30 min Caffeine: yes, esteban tea at times ,1 coffee in the AM -- advised to eliminate Carbonation: 1 SF energy drink daily -- advised to eliminate Alcohol: very rarely Dining out: jose taylor (during the work day) 3-4x/week -- advised to reduce 1x/week or less Last met with RD 11/16 Verbalized he is not using a food journal at this time, was previously using bariatastic. Per 24 hrrecall, not meeting protein or fluid goals. Reviewed overall protein/fluid goals with patient. Is not endorsing in formal exercise at this time, was previously walking consistently -- did encourage to get back into his original routine. Reports taking daily MV. Dining out has reduced to 3- 4x/week, recommended bringing lunch to work with him in addition to using protein shakes. The patient meets NIH guidelines for weight loss surgery and has been thoroughly evaluated and educated on good dietary practices. Patient is capable of following these guidelines pre-and post-surgically. From nutrition standpoint, the has partially met nutrition clearance and will need to demonstrate maintaining a food journal 5-7x/week, demonstrating meeting protein/fluid 5- 7x/week, avoiding skipping meals, increasing formal exercise to 150 minutes per week, eliminating caffeine/carbonation/alchol and reducing dining out meals to 1x/week to receive nutrition clearance. Plan: follow up with RD in 1 month Goals Eat 3 meals every day--consider protein shake as meal replacement (ie. premier protein) formal exercise 2-7x/week, as tolerated, goal of 30 minutes--consider with 2-3 days per week (consider on off-days), overall goal of 150 active minutes (walking) journal daily and bring to all appointments--document at least 5-7x/week, goal of 70-105g protein and 64oz of fluids--aim for around 25g protein with each meal work towards reducing caffeine/carbonation--switch over to decaf coffee and cut Monster drinks 50%--goal of d/'cing all caffeine/carbonation I spent 30 minutes in the visit, with more than 50% of the total [id number] time of the visit in counseling / coordination of care. Leyla Small RD This note was generated using voice recognition technology and may contain grammatical errors. documented in this encounterKettering [facility]07-20-2022 Miscellaneous Notes* Telephone Encounter - Candice Santiago [facility] - 01/31/2022 11:01 AM EDT Flor - Mr. Olivarez is set up to have echo prior to [facility] on 02/07/2022. Allan Harvey * Telephone Encounter - Flor Lake RN - 01/31/2022 11:00 AM EDT Left message on voicemail requesting pt return call for Heart cath date and instructions. Office phone number provided. Flor Lake RN * Telephone Encounter - Flor Lake RN - 01/31/2022 10:58 AM EDT Spoke with Candice. She will arrange echo same day as cath. Flor Lake RN * Telephone Encounter - Candice Rivera - 01/31/2022 10:40 AM EDT Schedule C on 02/07/[address] Rios documented in this encounterKettering Health [facility]07-20-2022 Miscellaneous Notes* Telephone Encounter - Zaida Bryan RN - 01/31/2022 9:25 AM EDT Spoke with patient and provided phone number for central scheduling to arrange the echocardiogram and have labs done for cardiac catheterization. Patient voiced understanding. Zaida Bryan RN * Telephone Encounter - Franklyn Coyne MD - 01/30/2022 3:47 PM EDT I obtained a copy of patient's stress test results from [facility] from 11/2020 which revealedevidence of mild to moderate anterior reversible myocardial ischemia concerning for LAD ischemia. I contacted patient and reviewed the results with him. Patient was unaware of these findings and thought he had been informed by [facility] that his stress test results were unremarkable. Givenhis ongoing symptoms of atypical chest pain along with his risk factors including prior tobacco useand strong family history of premature coronary disease and plans to proceed with elective bariatric surgery, patient was agreeable to proceed with cardiac catheterization for further evaluation. I explained the procedure in detail with him including the risks and alternatives and he was amenable to proceeding. Can we obtain preoperative blood work including basic metabolic panel and CBC? Can we also schedulefor him to have cardiac catheterization and echocardiogram in the next couple weeks for further evaluation? Thanks, Franklyn Coyne MD documented in this encounterKettering [facility]07-12-2022 Miscellaneous Notes* Telephone Encounter - Kerry Shay Pss - 01/23/2022 3:13 PM EDT I spoke with patient and he will be calling central scheduling to set up PFT. documented in this encounterKettering Health [facility]07-11-2022 Miscellaneous Notes* Telephone Encounter - BRAEDEN Callejas - 01/22/2022 10:[address] Coyne saw patient in September for this cardiac clearance. He stated once he received stress test report from [facility] he would be able to clear the patient for surgery. I called [facility] and requested for the stress test to be sent to us. I will pass on to Dr Coyne once he is back in the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 CREATININE: Creatinine Date Value Ref Range Status 11/24/2021 1.20 0.73 - 1.22 mg/dL Final 08/30/2020 0.89 0.73 - 1.22 mg/dL Final 08/11/2020 0.84 0.73 - 1.22 mg/dL Final Estimated Glomerular Filtration Rate Date Value Ref Range Status 11/24/2021 80 >=60 mL/min/1.73m Final Comment: Estimated Glomerular Filtration Rate (eGFR) is calculated using the 2020 CKD-EPI creatinine equation. This equation utilizes serum creatinine, sex, and age as parameters. The creatinine assay has traceable calibration to isotope dilution- mass spectrometry. Refer to KDIGO guidelines for clinical interpretation. In patients with unstable renal function, e.g. those with acute kidney injury, the eGFRmay not accurately reflect actual GFR. eGFR- Date Value Ref Range Status 08/30/2020 >60 Final P.O.C.T. RESULTS: N/A December 04, [address] PERFORMED: No IV SITE: Ambulatory: NM only - direct IV injection in the Right antecubital site POST EXAM PIV STATUS: Discontinued PROCEDURE TYPE: NM INJECT: Biliary. 5.5 mCi Tc99m CHOLETEC.8oz ensure po at 1015 JM.. ADMINISTRATION TIME: 0911 JM PATIENT DISCHARGED TO: Ambulatory patient, left [place] department area. A Diagnostic radioactive procedure has taken place, with no further precautions necessary other than routine body substance precautions. More information regarding radiation safety can be found usingthis link: [email or web address] SIGNATURE: ALEXSANDRA Leal) PATIENT NAME: Vinnie Olivarez DATE: December 04, 2021 TIME: 10:17 AM PAGER/CONTACT #: documented in this encounterK[facility]-18-2022 Miscellaneous Notes* Telephone Encounter - Danette Gates - 11/29/2021 12:26 PM EDT When patient calls back in he doesn't need a colooscopy now but [facility] a [facility] Per Debra. Danette Gates [facility] P: [phone] Ext [phone] * Telephone Encounter - Danette Gates - 11/29/2021 10:36 AM EDT Left message for patient to call in and schedule colonoscopy with Dr. Schroeder. Danette Gates [facility] P: [phone] Ext [phone] documented in this encounterK[facility]05-13-2022 Miscellaneous Notes* Telephone Encounter - Rachael Kenny Ma - 11/24/2021 11:47 AM EDT Pt notified and voiced understanding Rachael Kenny CMA * Telephone Encounter - Rachael Kenny Ma - 11/24/2021 11:46 AM EDT ----- Message from Miley Soni MD sent at 11/24/2021 10:58 AM EDT ----- Results are borderline. Recommend cosyntropin test. Our office is going to help scheduling the testat the infusion center documented in this encounterKettering [facility]05-05-2022 History of Present illness Narrative* Dorothy Candelario, RENATA - 11/16/2021 11:30 AM EDT Vinnie Olivarez--Visit conducted via agencyQ (audio and visual) d/t COVID 19 Month 3/6 Pre-Op weight goal: 285# Education Class: Patient will receive instruction regarding healthy food choices and eating behaviors identified as optimal when preparing for surgery, losing weight after surgery, and maintaining weight loss long-term. Patient will also receive instruction regarding the Bariatric Full Liquid diet following surgery and optimal post-operative high-protein supplement choices. Education class to be completed prior to surgery. Behaviors Accomplished: Visit # 3 Date: 11/14/2021 Weight: (!) 137.9 kg (304 lb) per pt report Weight goal met: No: pt presents with a 9# wt increase since last appointment. Of note, he is unsure of where the 295# reported weight was from on 08/07 appt. Of note, he did have in-office visit withrecorded weight on 10/20/21 of 304#. May consider in office appointment if noting challenges with obtaining weight. Behaviors that helped/hindered weight loss: has been drinking water, has been reducing carbonation,drinking Monster drinks with zero sugar. Exercise: no formal exercise implemented--increased activity -sugar-free monster energy drinks--up to 2 per day while working, about 5 days per day week, no alcohol this past month, regular coffee a few days here and there -will skip a meal 1-2 times per week -dining out/FF meals--will choose [employer]--doing about 5x/week 24 hr recall: B: none L: pretzel bun breakfast sandwich (eggs, sausage ishan, belgian cheese)--pre-packaged and coffee (regular--16) D: few piece of breakfast sausage (4 patties) and meatballs (10-15) S: none F: 3.5 bottles of 16.9fl oz bottles of water--44oz of 64oz P: 60g protein, 70-105g Written information provided and reviewed: Healthy plate/menus Behavior Checklist Journal Pt verbally reports using [employer] goldie--not keeping consistently with 3 meals, will forget a day here and there, documentation present around 4 days per week. Pt presents for follow up visit #3 with program, had SNA x 1 month ago. Has been making efforts of increasing water. Does work at [employer]--no formal exercise outside of this. On and off with food journal. 24 hour recall demonstrates being low on protein and adjusted fluid intake--did encourage switching to all decaf coffee, reducing caffeine/energy drinks per goals with goal of d/'rachele provided guidance of 25g protein with meals to guarantee meeting 70-105g protein goal. Also encouraged implementing formal, planned activity--starting with a few days per week and building up to 150 active minutes. Will continue to review food journal at next encounter: plan to provide further goals with reducing dining out/FF meals--did recommend starting to plan ahead meal options for work days/lunch ie. Hard boiled eggs, cheese stick, deli meat, cottage cheese, malay yogurt. Goals: Goals Eat 3 meals every day--consider protein shake as meal replacement (ie. premier protein) formal exercise 2-7x/week, as tolerated, goal of 30 minutes--consider with 2-3 days per week (consider on off-days), overall goal of 150 active minutes (walking) journal daily and bring to all appointments--document at least 5-7x/week, goal of 70-105g protein and 64oz of fluids--aim for around 25g protein with each meal work towards reducing caffeine/carbonation--switch over to decaf coffee and cut Monster drinks 50%--goal of d/'cing all caffeine/carbonation The patient meets NIH guidelines for weight loss surgery and has been thoroughly evaluated and educated on good dietary practices. Patient is capable of following these guidelines pre-and post-surgically. From nutrition standpoint, the has partially met nutrition clearance and will need to demonstrate maintaining a food journal 5-7x/week, demonstrating meeting protein/fluid 5- 7x/week, increasing formal exercise to 150 minutes per week, consuming 3 meals daily, eliminating caffeine/carbonation/alchol and reducing dining out meals to 1x/week to receive nutrition clearance. Plan: follow up with GLUING PRESSMAN as per GLUING PRESSMAN note on 10/09 (scheduled for 12/13/21), RD x 1 month to assess for nutrition clearance. Total time in direct patient contact = 25 minutes. Greater than 50% of the time was spent in counseling and/or coordination of care. Dorothy Candelario RD This note was generated using voice recognition technology and may contain grammatical errors. documented in this encounterKettering [facility]05-02-2022 Miscellaneous Notes* Telephone Encounter - Erica Smith LPN - 11/13/2021 9:29 AM EDT Done spoke to pt. Pt vocalized understanding. He will be going this week to get labs completed. Erica Smith LPN * Telephone Encounter - Miley Soni MD - 11/10/2021 6:08 PM EDT Patient needs to complete the blood test ordered last visit before clearance for surgery. Blood test needs to be done in the morning fasting. Order in the system and it can be done at any of the [facility] labs documented in this encounterKettering [facility]04-13-2022 Miscellaneous Notes* Telephone Encounter - Teresa Boyer - 10/25/2021 3:17 PM EDTSummary: PT LVM requesting to setup next appt that is needed. Call back PT LVM PT LVM requesting to setup next appt that is needed. Call back PT LVM confirm Eric appt info. Appt to setup missed appt. Also needs 3 mo GLUING PRESSMAN 60min. documented in this encounterKettering [facility]04-12-2022 Miscellaneous Notes* Telephone Encounter - Marie Araujo Pss - 10/24/2021 1:09 PM EDT Called LVM to make RD VV 1st week in November then 4 weeks after with GOLDIE- Also needs US ABD scheduled documented in this encounterKettering [facility]04-12-2022 Miscellaneous Notes* Telephone Encounter - Danette Gates - 10/24/2021 8:49 AM EDT Miley Soni MD Endocrinology 10/24/2021 End 10/24/21 ; FAXED. Danette Gates [facility] P: [phone] Ext [phone] documented in this encounterKettering [facility]04-11-2022 Miscellaneous Notes* Telephone Encounter - Debra Crocker APRN.DYNAMITER - 10/23/2021 3:28 PM EDT Reviewed. No mention of clearance. Will need to send letter. Debra Crocker APRN.CNP * Telephone Encounter - Danette Yajaira - 10/23/2021 1:51 PM EDT Endocrinology OV notes received and scanned into chart for review. Danette Gates [facility] P: [phone] Ext [phone] documented in this encounterKettering [facility]04-11-2022 Miscellaneous Notes* Telephone Encounter - Danette Gates - 10/23/2021 1:40 PM EDT Left message for Vinnie to schedule his November appointment since he has his schedule through then. Danette Gates [facility] P: [phone] Ext [phone] documented in this encounterKettering [facility]04-08-2022 History of Present illness Narrative* Miley Soni MD - 10/20/2021 11:01 AM EDT Images from the original note were not included. PCP: Eileen Vogel MD. Referring Provider: Kathy Chambers The history is provided by the patient. Vinnie Olivarez is a 36 year old White male who presented to the endocrine clinic for Adrenal evaluation and management Initial History: (10/20/21) Other significant medical history includes morbid obesity, degenerative back disease, sleep apnea, bipolar disorder, nephrolithiasis and severe GERD secondary to hiatal hernia Patient is here for adrenal evaluation prior to bariatric surgery. Patient was found to have incidental 6 cm left adrenal mass on CT scan evaluation for kidney stone. Patient had laparoscopic left adrenalectomy on 08/29/2020 with no significant perioperative complications. Patient reports symptoms of chronic back pain and other symptoms related to hiatal hernia such as heartburn and abdominal pain. Patient was able to lose weight on the current bariatric program with plan to undergo sleeve gastrectomy. He also has trouble sleeping and using CPAP. No family history of adrenal tumors Review of Systems Respiratory: Positive for shortness of breath. Gastrointestinal: Positive for abdominal pain and heartburn. Musculoskeletal: Positive for back pain. Neurological: Positive for headaches. Psychiatric/Behavioral: Positive for depression. The patient has insomnia. HISTORY REVIEWED (electronic chart updated): PAST MEDICAL HISTORY Diagnosis Date Back pain extra vertebrae in my lower back. Bipolar disorder ([facility]) Class 3 severe obesity due to excess calories with serious comorbidity and body mass index (BMI) of40.0 to 44.9 in adult (HCC) DVT (deep venous thrombosis) ([facility]) RLE, multiple per patient but no detention anticoag Essential hypertension Kidney stones Left adrenal mass ([facility]) Paraesophageal hernia 06/16/2021 6 cm Psychiatric disorder Sleep apnea does not use CPAP Tobacco use disorder PAST SURGICAL HISTORY Procedure Laterality Date ADRENALECTOMY Left 08/29/2020 Dr. Verdin EGD EGD WITH BIOPSY(S) 06/16/2021 6 cm paraesophageal hernia, Joni's erosions, duodenitis; Dr. Schroeder LITHOTRIPSY Right 11/15/2020 kidney; Dr. Gillette SCREENING COLONSCOPY NOT HIGH RISK TONSILLECTOMY AND ADENOIDECTOMY HX FAMILY HISTORY Problem Relation Age of Onset Heart Attack Mother Osteoporosis Mother COPD Mother Heart Father AR, CABG x 4 Social History Tobacco Use Smoking status: Former Smoker Packs/day: 1.00 Years: 23.00 Pack years: 23.00 Types: Cigarettes Quit date: 03/29/2021 Years since quittin.5 Smokeless tobacco: Never Used Vaping Use Vaping Use: Never used Substance Use Topics Alcohol use: Yes Comment: rarely Drug use: Yes Types: Marijuana Comment: rarely Current Outpatient Medications Medication Sig Dispense Refill acetaminophen (TYLENOL EXTRA STRENGTH) 500 mg tablet Take 500 mg by mouth every 8 hours as needed. pantoprazole DR (PROTONIX) 40 mg tablet Take 1 tablet by mouth once daily. 90 tablet 3 QUEtiapine XR (SEROQUEL XR) 400 mg 24 hr tablet TAKE 1 TABLET BY MOUTH ONCE DAILY AT BEDTIME 30 tablet 0 FLUoxetine HCl (PROZAC) 40 mg capsule Take 1 capsule by mouth once daily. 30 capsule 0 OXcarbazepine (TRILEPTAL) 600 mg tablet 300mg qam 900mg qpm 90 tablet 0 gabapentin (NEURONTIN) 300 mg capsule Take 1 capsule by mouth three times daily for 30 days. (Patient taking differently: Take 300 mg by mouth three times daily. Once daily, second and third dose as needed) 90 capsule 0 diphenhydrAMINE (BENADRYL) 25 mg capsule Take 25 mg by mouth at bedtime as needed. No current facility-administered medications for this visit. Objective BP 140/88 Pulse 83 Ht 5' 11 (1.80m) Wt 304 lb 4.8 oz (138.0kg) BMI 42.46 kg/(m^2). Physical Exam Vitals and nursing note reviewed. Constitutional: General: He is not in acute distress. Appearance: He is obese. HENT: Head: Atraumatic. Cardiovascular: Rate and Rhythm: Normal rate and regular rhythm. Heart sounds: Normal heart sounds. Pulmonary: Effort: No respiratory distress. Breath sounds: Normal breath sounds. Abdominal: General: A surgical scar is present. Palpations: Abdomen is soft. Tenderness: There is no abdominal tenderness. Musculoskeletal: Right lower leg: No edema. Left lower leg: No edema. Neurological: General: No focal deficit present. Mental Status: He is alert. Cranial Nerves: No cranial nerve deficit. Psychiatric: Mood and Affect: Affect normal. Labs and imaging data: Reviewed Component Latest Ref Rng & Units 08/11/2020 Aldosterone 3.1 - 35.4 ng/dL 3.6 Direct Renin pg/mL 2.8 Aldosterone/Renin Ratio <4 1 Metanephrine, Plasma 12 - 67 pg/mL 25 Normetanephrine, Free Plasma 18 - 101 pg/mL 113 (H) Cortisol See Comment ug/dL 2.8 (A) DHEA-S 88.9 - 427.0 ug/dL 51.2 (L) CT abdomen/pelvis with IV contrast on 08/11/2020 Adrenals: Left adrenal mass measures approximately 6.5 x 6.5 x 6.0 cm with an approximate attenuation of 70 Hounsfield units. The mass is well-circumscribed and abuts, but does not invade, the left diaphragmatic jaime and pancreatic tail. The right adrenal gland is normal. 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 Tumor size: 8 cm in greatest dimension. Margins appear negative for tumor. Previous medical records: Reviewed Assessment & Plan Assessment: Vinnie was seen today for new patient and adrenal . 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 Margins negative for tumor Right adrenal is normal, however a.m. cortisol DHEA-sulfate prior to adrenalectomy on 08/11/2020 waslow. No clinical evidence of adrenal insufficiency and no history of perioperative hypotension or hypoglycemia. Proceed with a.m. cortisol and DHEA-sulfate with possible ACTH stim test I discussed the plan of care with the patient in details including different treatment options and side effects of medications prescribed in this visit. Complications of untreated or uncontrolled disease were also discussed. Patient expressed understanding and agreement. Return in about 6 months (around 04/21/2022). Miley Soni MD [facility] Endocrinology - [address], [address] [place] [address] This note was partially generated using [employer] voice recognition system, and there may be some incorrect words, spellings, and punctuation that were not intended as it appear in the note. documented in this encounterKettering Health [facility]04-07-2022 History of Present illness Narrative* Cornelius Calderón APRN.DYNAMITER - 10/19/2021 10:30 AM EDT BARIATRIC SURGERY CLINIC FOLLOW UP NOTE DISTANCE HEALTH VISIT This Team Access Model visit is a virtual encounter. It required patient- provider interaction for the medical decision making as documented below. Consent was obtained to complete today's distance health visit. HPI: Vinnie Olivarez a 36 year old male for presents for medically supervised weight loss treatment of his obesity related co morbidities. This individual presents for month 2 of 6 required visits completed as a virtual telephone encounter Vinnie Olivarez weight calculation Has remained stable Patient has had a cancel first [facility] appointment and has just started his daily fluid and protein journaling using [employer] goldie this past Saturday. Has been struggling to meet fluid goals hitting about35 ounces but is working on modifications to help him attain his goals. Reports he has not been engaging in formal exercise time but is also on his list of things to get started this week. Denies abdominal pain, nausea, vomiting, diarrhea or any worsenong acid reflux issues. Denies any recent illnesses or hospitalizations. Reminded patient of the importance of keeping monthly visits with her program per insurance requirements. Verbalized understanding and is agreeable. Has upcoming appointments with endocrinology, pulmonology and psychology. Reports he will contact cardiology and will do new stress test with them. HISTORY REVIEWED (electronic chart updated): - medical history - medications - allergies PAST MEDICAL HISTORY Diagnosis Date Back pain extra vertebrae in my lower back. 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 anticoag Essential hypertension Kidney stones Left adrenal mass ([facility]) Paraesophageal hernia 06/16/2021 6 cm Psychiatric disorder Sleep apnea does not use CPAP Tobacco use disorder Social: Social History Tobacco Use Smoking status: Former Smoker Packs/day: 1.00 Years: 23.00 Pack years: 23.00 Types: Cigarettes Quit date: 03/29/2021 Years since quittin.5 Smokeless tobacco: Never Used Vaping Use Vaping Use: Never used Substance Use Topics Alcohol use: Yes Comment: rarely Drug use: Yes Types: Marijuana Comment: rarely Medications: Current Outpatient Medications Medication Sig acetaminophen (TYLENOL EXTRA STRENGTH) 500 mg tablet Take 500 mg by mouth every 8 hours as needed. albuterol sulfate (PROAIR HFA INHALATION) Inhale 2 Puffs as instructed every 4 hours as needed. pantoprazole DR (PROTONIX) 40 mg tablet Take 1 tablet by mouth once daily. QUEtiapine XR (SEROQUEL XR) 400 mg 24 hr tablet TAKE 1 TABLET BY MOUTH ONCE DAILY AT BEDTIME FLUoxetine HCl (PROZAC) 40 mg capsule Take 1 capsule by mouth once daily. OXcarbazepine (TRILEPTAL) 600 mg tablet 300mg qam 900mg qpm gabapentin (NEURONTIN) 300 mg capsule Take 1 capsule by mouth three times daily for 30 days. (Patient taking differently: Take 300 mg by mouth three times daily. Once daily, second and third dose as needed) diphenhydrAMINE (BENADRYL) 25 mg capsule Take 25 mg by mouth at bedtime as needed. No current facility-administered medications for this visit. REVIEW OF SYSTEMS General: No fatigue or fevers HEENT: Negative for frequent or significant headaches, No changes in hearing or vision, no nose bleeds or other nasal problems PAP Therapy: Using it nightly. GI:No nausea, vomiting, or diarrhea and No heartburn or reflux symptoms Muskuloskeletal: Negative for joint pain or swelling, back pain or muscle pain Skin: Negative for lesions, rash, and itching Psych: Negative for sleep disturbance, mood disorder and recent psychosocial stressors PHYSICAL EXAMINATION Ht 180.3 cm (5' 11) Wt (!) 140.6 kg (310 lb) BMI 43.24 kg/m GENERAL APPEARANCE: Pleasant, interacts appropriately and in no apparent distress. Appropriately groomed, happy, smiling, and interactive SKIN: Skin of normal texture, temperature without rashes/lesions/ulcerations. LUNGS: unlabored on room air negative findings: normal respiratory rate no cough NEURO/PSYCH: Oriented to person, place, time; appropriate insight and judgement. Appropriate affect. Diagnostic Tests Reviewed for Today's Visit No new labs The plan of treatment for Vinnie Olivarez is Further Work-up: Required monthly visits: 6 months. Patient is interested in: Gastric Bypass w/ PEHR EGD: POSTOPERATIVE DIAGNOSIS: 1. Severe obesity 2. GERD 3. Paraesophageal hernia - 6 cm 4. Antral gastritis 5. Gastric body erosions 6. Joni's erosions 7. Duodenitis Upper GI: n/a RUQ US: Ordered Sleep Study: Known TIFFANIE CXR:per pulm clearance (10/23/21) EKG:per cardiac clearance --normal scanned in-will schedule stress test H Pylori negative. Labs:Ordered Nicotine use <12 months: Yes--nicotine test ordered Marijuana use: Yes--tox screen ordered Antiplatelet/anticoagulants: No Immunosuppressive therapy: No Estrogen therapy: No Evaluations Psychology: ongoing Nutrition: ongoing Education class: ongoing Clearances: Cardiac ( + family hx premature CAD, +smoking +cardiac risk factors), Endo (recent adrenalectomy), Hematology (x3 DVT), Pulmonary (+smoking, cough, TIFFANIE) and PCP Risk Calculator: VTE Risk: hx DVT COVID-19 Risk 3 Post-op Medications: Extended Lovenox: TBD based on hematology recs Actigall: TBD H2 serge/PPI: On PPI ASSESSMENT/PLAN: 1. Class 3 severe obesity due to excess calories with serious comorbidity and body mass index (BMI)of 40.0 to 44.9 in adult (HCC) - ICD9: 278.01, V85.41, ICD10: E66.01, Z68.41 -will resched SNA and get on track with bariatric program once recovered from COVID PN 2. Paraesophageal hernia - ICD9: 553.3, ICD10: K44.9 (primary diagnosis) -continue PPI and pepcid -planned for repair with RYGB 3. Tobacco abuse -continues to abstain from smoking 5. Sleep apnea, unspecified type - ICD9: 780.57, ICD10: G47.30 -consult to pulm for comprehensive work-up (10/23/21) -wears CPAP but takes off during night 6. Disorder of adrenal gland (HCC) - ICD9: 255.9, ICD10: E27.9 -consult to endocrinology (10/20/21) 7. Marijuana use - ICD9: 305.20, ICD10: F12.90 -will need tox screen prior to surgery 8. Deep vein thrombosis (DVT) of lower extremity, unspecified chronicity, unspecified laterality, unspecified vein (HCC) - ICD9: 453.40, ICD10: I82.409 -consult to hematology--needs to schedule appoint. Needs RUQ US, bloodwork, tox screen and nicotine test. Clearances from hematology, endo, cards, pulm, nutrition and psych. Return next month for RD and in 8 weeks for GLUING PRESSMAN Cornelius Calderón APRN.CNP Total time in direct patient contact = 45 min. Greater than 50% of the time was spent in counselingand/or coordination of care. This note was generated using voice recognition technology and may contain grammatical errors. documented in this encounterKettering Health Dayton03-28-2022 Miscellaneous Notes* Telephone Encounter - Teresa Boyer - 10/09/2021 10:20 AM EDTSummary: Call and spoke to PT about sending over disclosure statement adv does need to be sign and return prior before appt. 10/12/21 @2pm Call and spoke to PT about sending over disclosure statement adv does need to be sign and return prior before appt. 10/12/21 @2pm. documented in [facility]McC[facility]* Diagnosis Class 3 severe obesity due to excess calories with serious comorbidity and body mass index (BMI) of 40.0 to 44.9 in adult (HCC)- Primary Paraesophageal hernia Diaphragmatic hernia without mention of obstruction or gangrene Tobacco abuse, in remission Personal history of tobacco use, presenting hazards to health Sleep apnea, unspecified type Disorder of adrenal gland (HCC) Unspecified disorder of adrenal glands Marijuana use Cannabis abuse, unspecified Deep vein thrombosis (DVT) of lower extremity, unspecified chronicity, unspecified laterality, unspecified vein (HCC) documented in this encounter [facility]* Diagnosis History of adrenal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 Materials Analyst Relationship Specialty Start Date End Date Eileen Monroe MD [address] [place] [address] PCP - General Internal Medicine 07/21/20 Mimi Tavares MD [address] [facility] [place] [address] Physician General Surgery 07/21/20 Nicho Verdin MD [address] [place] [address] Consulting General Surgery 09/07/20 Materials Analyst Relationship Specialty Start Date End Date Eileen Monroe MD [address] [place] [address] PCP - General Internal Medicine 07/21/20 Mimi Tavares MD [address] [place] [address] Physician General Surgery 07/21/20 Nicho Verdin MD 1 [facility], [place] [id number] Consulting General Surgery 09/07/20 Materials Analyst Relationship Specialty Start Date End Date Eileen Monroe MD [address] [place] [address] PCP - General Internal Medicine 07/21/20 Mimi Tavares MD [address] [place] [address] Physician General Surgery 07/21/20 Nicho Verdin MD [address] [place] [address] Consulting General Surgery 09/07/20 Materials Analyst Relationship Specialty Start Date End Date Eileen Monroe MD [address] [place] [address] PCP - General Internal Medicine 07/21/20 Mimi Tavares MD [address] [place] [address] Physician General Surgery 07/21/20 Nicho Verdin MD 1 [facility], [place] [id number] Consulting General Surgery 09/07/20 Miley Soni MD [address] [place] [id number] Endocrinology 10/24/21 Materials Analyst Relationship Specialty Start Date End Date Eileen Monroe MD [address] [place] [address] PCP - General Internal Medicine 07/21/20 Mimi Tavares MD [address] [place] [address] Physician General Surgery 07/21/20 Nicho Verdin MD [address] [facility] [address] Consulting General Surgery 09/07/20 Miley Soni MD [address] [place] [id number] Endocrinology 10/24/21 Materials Analyst Relationship Specialty Start Date End Date Eileen Monroe MD [address] [place] [address] PCP - General Internal Medicine 07/21/20 Mimi Tavares MD [address] [place] [address] Physician General Surgery 07/21/20 Nicho Verdin MD [address] [place], [place] [id number] Consulting General Surgery 09/07/20 Miley Soni MD [address] [place] [address] Endocrinology 10/24/21 Materials Analyst Relationship Specialty Start Date End Date Eileen Monroe MD [address] [place] [address] PCP - General Internal Medicine 07/21/20 Mimi Tavares MD [address] [place] [address] Physician General Surgery 07/21/20 Nicho Verdin MD 1 [place] [address] Consulting General Surgery 09/07/20 Miley Soni MD [address] [place] [address] Endocrinology 10/24/21 Materials Analyst Relationship Specialty Start Date End Date Eileen Monroe MD [address] [place] [address] PCP - General Internal Medicine 07/21/20 Mimi Tavares MD [address] [place] [address] Physician General Surgery 07/21/20 Nicho Verdin MD [address] [place] [address] Consulting General Surgery 09/07/20 Miley Soni MD [address] [place], [place] [id number] Endocrinology 10/24/21 Materials Analyst Relationship Specialty Start Date End Date Eileen Monroe MD [address] [facility] [place] [place] [address] PCP - General Internal Medicine 07/21/20 Mimi Tavares MD [address] [place] [address] Physician General Surgery 07/21/20 Nicho Verdin MD [address] [place] [address] Consulting General Surgery 09/07/20 Miley Soni MD [address] [place], [place] [id number] Endocrinology 10/24/21 Materials Analyst Relationship Specialty Start Date End Date Eileen Monroe MD [address] [place] [address] PCP - General Internal Medicine 07/21/20 Mimi Tavares MD [address] [place] [address] Physician General Surgery 07/21/20 Nicho Verdin MD [address] [place], [place] [id number] Consulting General Surgery 09/07/20 Miley Soni MD [address] [place], [place] [id number] Endocrinology 10/24/21 Materials Analyst Relationship Specialty Start Date End Date Eileen Monroe MD [address] [place] [address] PCP - General Internal Medicine 07/21/20 Mimi Tavares MD [address] [facility] [place] [address] Physician General Surgery 07/21/20 Nicho Verdin MD [address] [place] [address] Consulting General Surgery 09/07/20 Miley Soni MD [address] [place], [place] [id number] Endocrinology 10/24/21 Materials Analyst Relationship Specialty Start Date End Date Eileen Monroe MD [address] [place] [address] PCP - General Internal Medicine 07/21/20 Mimi Tavares MD [address] [facility] [place] [address] Physician General Surgery 07/21/20 Nicho Verdin MD 1 [place] [address] Consulting General Surgery 09/07/20 Miley Soni MD [address] [place], [place] [id number] Endocrinology 10/24/21 Materials Analyst Relationship Specialty Start Date End Date Eileen Monroe MD [address] [facility] [place] [place] [address] PCP - General Internal Medicine 07/21/20 Mimi Tavares MD [address] [place] [address] Physician General Surgery 07/21/20 Nicho Verdin MD [address] [place] [address] Consulting General Surgery 09/07/20 Miley Soni MD [address] [place], [place] [address] Endocrinology 10/24/21 Materials Analyst Relationship Specialty Start Date End Date Eileen Monroe MD [address] [place] [address] PCP - General Internal Medicine 07/21/20 Mimi Tavares MD [address] [place] [address] Physician General Surgery 07/21/20 Nicho Verdin MD [address] [place] [address] Consulting General Surgery 09/07/20 Miley Soni MD [address] [place] [address] Endocrinology 10/24/21 Materials Analyst Relationship Specialty Start Date End Date Eileen Monroe MD [address] [place] [address] PCP - General Internal Medicine 07/21/20 Mimi Tavares MD [address] [facility] [place] [address] Physician General Surgery 07/21/20 Nicho Verdin MD 1 [place] [address] Consulting General Surgery 09/07/20 Miley Soni MD [address] [place], [place] [id number] Endocrinology 10/24/21 Materials Analyst Relationship Specialty Start Date End Date Eileen Monroe MD [address] [place] [address] PCP - General Internal Medicine 07/21/20 Mimi Tavares MD [address] [place] [address] Physician General Surgery 07/21/20 Nicho Verdin MD 1 [place] [address] Consulting General Surgery 09/07/20 Miley Soni MD [address] [place], [place] [address] Endocrinology 10/24/21 Materials Analyst Relationship Specialty Start Date End Date Eileen Monroe MD [address] [place] [address] PCP - General Internal Medicine 07/21/20 Mimi Tavares MD [address] [place] [address] Physician General Surgery 07/21/20 Nicho Verdin MD [address] [facility] [address] Consulting General Surgery 09/07/20 Miley Soni MD [address] [place], [place] [address] Endocrinology 10/24/21 Materials Analyst Relationship Specialty Start Date End Date Eileen Monroe MD [address] [place] [address] PCP - General Internal Medicine 07/21/20 Mimi Tavares MD [address] [place] [address] Physician General Surgery 07/21/20 Nicho Verdin MD [address] [place] [address] Consulting General Surgery 09/07/20 Miley Soni MD [address] [place], [place] [id number] Endocrinology 10/24/21 Materials Analyst Relationship Specialty Start Date End Date Eileen Monroe MD [address] [place] [address] PCP - General Internal Medicine 07/21/20 Mimi Tavares MD [address] [place] [address] Physician General Surgery 07/21/20 Nicho Verdin MD 1 [place] [address] Consulting General Surgery 09/07/20 Miley Soni MD [address] [place] [address] Endocrinology 10/24/21 Materials Analyst Relationship Specialty Start Date End Date Eileen Monroe MD [address] [facility] [place] [place] [address] PCP - General Internal Medicine 07/21/20 Mimi Tavares MD [address] [place] [address] Physician General Surgery 07/21/20 Nicho Verdin MD [address] [place] [address] Consulting General Surgery 09/07/20 Miley Soni MD [address] [place], [place] [address] Endocrinology 10/24/21 Materials Analyst Relationship Specialty Start Date End Date Eileen Monroe MD [address] [place] [address] PCP - General Internal Medicine 07/21/20 Mimi Tavares MD [address] [facility] [place] [address] Physician General Surgery 07/21/20 Nicho Verdin MD [address] [place] [address] Consulting General Surgery 09/07/20 Miley Soni MD [address] [place], [place] [address] Endocrinology 10/24/21 Materials Analyst Relationship Specialty Start Date End Date Eileen Monroe MD [address] [facility] [place] [place] [address] PCP - General Internal Medicine 07/21/20 Mimi Tavares MD [address] [facility] [place] [address] Physician General Surgery 07/21/20 Nicho Verdin MD [address] [place] [address] Consulting General Surgery 09/07/20 Miley Soni MD [address] [place], [place] [id number] Endocrinology 10/24/21 Materials Analyst Relationship Specialty Start Date End Date Eileen Monroe MD [address] [place] [address] PCP - General Internal Medicine 07/21/20 Mimi Tavares MD [address] [facility] [place] [address] Physician General Surgery 07/21/20 Nicho Verdin MD 1 [place] [address] Consulting General Surgery 09/07/20 Miley Soni MD [address] [place], [place] [address] Endocrinology 10/24/21 Materials Analyst Relationship Specialty Start Date End Date Eileen Monroe MD [address] [facility] [place] [address] PCP - General Internal Medicine 07/21/20 Mimi Tavares MD [address] [facility] [place] [address] Physician General Surgery 07/21/20 Nicho Verdin MD 1 [place] [address] Consulting General Surgery 09/07/20 Miley Soni MD [address] [place], [place] [id number] Endocrinology 10/24/21 Materials Analyst Relationship Specialty Start Date End Date Eileen Monroe MD [address] [place] [address] PCP - General Internal Medicine 07/21/20 Mimi Tavares MD [address] [facility] [address] Physician General Surgery 07/21/20 Nicho Verdin MD 1 [facility] [place] [address] Consulting General Surgery 09/07/20 Miley Soni MD [address] [place] [address] Endocrinology 10/24/21 Materials Analyst Relationship Specialty Start Date End Date Eileen Monroe MD [address] [place] [address] PCP - General Internal Medicine 07/21/20 Mimi Tavares MD [address] [facility] [place] [address] Physician General Surgery 07/21/20 Nicho Verdin MD [address] [place] [address] Consulting General Surgery 09/07/20 Miley Soni MD [address] [place] [address] Endocrinology 10/24/21 Materials Analyst Relationship Specialty Start Date End Date Eileen Monroe MD [address] [place] [address] PCP - General Internal Medicine 07/21/20 Mimi Tavares MD [address] [place] [address] Physician General Surgery 07/21/20 Nicho Verdin MD [address] [place] [address] Consulting General Surgery 09/07/20 Miley Soni MD [address] [place], [place] [id number] Endocrinology 10/24/21 Materials Analyst Relationship Specialty Start Date End Date Eileen Monroe MD [address] [place] [address] PCP - General Internal Medicine 07/21/20 Mimi Tavares MD [address] [place] [address] Physician General Surgery 07/21/20 Nicho Verdin MD [address] [place] [address] Consulting General Surgery 09/07/20 Miley Soni MD [address] [place] [address] Endocrinology 10/24/21 Materials Analyst Relationship Specialty Start Date End Date Eileen Monroe MD [address] [place] [address] PCP - General Internal Medicine 07/21/20 Mimi Tavares MD [address] [place] [address] Physician General Surgery 07/21/20 Nicho Verdin MD [address] [place] [address] Consulting General Surgery 09/07/20 Miley Soni MD [address] [place] [address] Endocrinology 10/24/21 Materials Analyst Relationship Specialty Start Date End Date Eileen Monroe MD [address] [place] [address] PCP - General Internal Medicine 07/21/20 Mimi Tavares MD [address] [place] [address] Physician General Surgery 07/21/20 Nicho Verdin MD 1 [place] [address] Consulting General Surgery 09/07/20 Miley Soni MD [address] [place], [place] [address] Endocrinology 10/24/21 Materials Analyst Relationship Specialty Start Date End Date Eileen Monroe MD [address] [place] [address] PCP - General Internal Medicine 07/21/20 Mimi Tavares MD [address] [place] [address] Physician General Surgery 07/21/20 Nicho Verdin MD [address] [place] [address] Consulting General Surgery 09/07/20 Miley Soni MD [address] [place], [place] [address] Endocrinology 10/24/21 Materials Analyst Relationship Specialty Start Date End Date Eileen Monroe MD [address] [place] [address] PCP - General Internal Medicine 07/21/20 Mimi Tavares MD [address] [place] [address] Physician General Surgery 07/21/20 Nicho Verdin MD [address] [facility] [place], [place] [address] Consulting General Surgery 09/07/20 Miley Soni MD [address] [place], [place] [address] Endocrinology 10/24/21 Materials Analyst Relationship Specialty Start Date End Date Eileen Monroe MD [address] [place] [address] PCP - General Internal Medicine 07/21/20 Mimi Tavares MD [address] [place] [address] Physician General Surgery 07/21/20 Nicho Verdin MD [address] [place], [place] [address] Consulting General Surgery 09/07/20 Miley Soni MD [address] [place], [place] [address] Endocrinology 10/24/21 Materials Analyst Relationship Specialty Start Date End Date Eileen Monroe MD [address] [place] [address] PCP - General Internal Medicine 07/21/20 Mimi Tavares MD [address] [place] [address] Physician General Surgery 07/21/20 Nicho Verdin MD [address] [place], [place] [address] Consulting General Surgery 09/07/20 Miley Soni MD [address] [place], [place] [address] Endocrinology 10/24/21 Materials Analyst Relationship Specialty Start Date End Date Eileen Monroe MD [address] [place] [address] PCP - General Internal Medicine 07/21/20 Mimi Tavares MD [address] [facility] [place] [address] Physician General Surgery 07/21/20 Nicho Verdin MD [address] [place], [place] [address] Consulting General Surgery 09/07/20 Miley Soni MD [address] [place] [address] Endocrinology 10/24/21 Materials Analyst Relationship Specialty Start Date End Date Eileen Monroe MD [address] [facility] [place] [place] [address] PCP - General Internal Medicine 07/21/20 Mimi Tavares MD [address] [place] [address] Physician General Surgery 07/21/20 Nicho Verdin MD 1 [place] [address] Consulting General Surgery 09/07/20 Miley Soni MD [address] [place] [address] Endocrinology 10/24/21 Materials Analyst Relationship Specialty Start Date End Date Eileen Monroe MD [address] [place] [address] PCP - General Internal Medicine 07/21/20 Mimi Tavares MD [address] [place] [address] Physician General Surgery 07/21/20 Nicho Verdin MD [address] [place] [address] Consulting General Surgery 09/07/20 Miley Soni MD [address] [place], [place] [address] Endocrinology 10/24/21 Materials Analyst Relationship Specialty Start Date End Date Eileen Monroe MD [address] [place] [address] PCP - General Internal Medicine 07/21/20 Mimi Tavares MD [address] [place] [address] Physician General Surgery 07/21/20 Nicho Verdin MD [address] [place] [address] Consulting General Surgery 09/07/20 Miley Soni MD [address] [place] [address] Endocrinology 10/24/21 Materials Analyst Relationship Specialty Start Date End Date Eileen Monroe MD [address] [facility] [place] [address] PCP - General Internal Medicine 07/21/20 Mimi Tavares MD [address] [place] [address] Physician General Surgery 07/21/20 Nicho Verdin MD [address] [place] [address] Consulting General Surgery 09/07/20 Miley Soni MD [address] [place], [place] [address] Endocrinology 10/24/21 Materials Analyst Relationship Specialty Start Date End Date Eileen Monroe MD [address] [place] [address] PCP - General Internal Medicine 07/21/20 Mimi Tavares MD [address] [facility] [place] [address] Physician General Surgery 07/21/20 Nicho Verdin MD 1 [place] [address] Consulting General Surgery 09/07/20 Miley Soni MD [address] [place] [address] Endocrinology 10/24/21 Materials Analyst Relationship Specialty Start Date End Date Eileen Monroe MD [address] [place] [address] PCP - General Internal Medicine 07/21/20 Mimi Tavares MD [address] [facility] [place] [address] Physician General Surgery 07/21/20 Nicho Verdin MD 1 [place] [address] Consulting General Surgery 09/07/20 Miley Soni MD [address] [place] [address] Endocrinology 10/24/21 Materials Analyst Relationship Specialty Start Date End Date Eileen Monroe MD [address] [facility] [place] [place] [address] PCP - General Internal Medicine 07/21/20 Mimi Tavares MD [address] [place] [address] Physician General Surgery 07/21/20 Nicho Verdin MD [address] [facility] [place], [place] [address] Consulting General Surgery 09/07/20 Miley Soni MD [address] [place], [place] [address] Endocrinology 10/24/21 Materials Analyst Relationship Specialty Start Date End Date Eileen Monroe MD [address] [place] [address] PCP - General Internal Medicine 07/21/20 Mimi Tavares MD [address] [place] [address] Physician General Surgery 07/21/20 Nicho Verdin MD 1 [place] [address] Consulting General Surgery 09/07/20 Miley Soni MD [address] [place], [place] [address] Endocrinology 10/24/21 Team Status: Active Member Role Status Dates No Primary Care Physician Primary Care Provider Active Team Status: Inactive Member Role Status Dates Dr. Otto Montaño MD Emergency Provider Active No Primary Care Physician Primary Care Provider Active Team Status: Inactive Member Role Status Dates No Primary Care Physician Primary Care Provider Active Dr. Bruce Paige MD Emergency Provider Active Materials Analyst Relationship Specialty Start Date End Date Eileen Monroe MD [address] [place] [address] PCP - General Internal Medicine 07/21/20 Mimi Tavares MD [address] [place] [address] Physician General Surgery 07/21/20 Nicho Verdin MD [address] [place], [place] [address] Consulting General Surgery 09/07/20 Miley Soni MD [address] [place] [address] Endocrinology 10/24/21 Rogelio West, RN [address] [place], [place] 0769[address] Primary Care Urban Planner Internal Medicine 11/13/22 12/13/22 Materials Analyst Relationship Specialty Start Date End Date Eileen Monroe MD [address] [facility] [place] [address] PCP - General Internal Medicine 07/21/20 Mimi Tavares MD [address] [place] [address] Physician General Surgery 07/21/20 Nicho Verdin MD [address] [place], [place] [address] Consulting General Surgery 09/07/20 Miley Soni MD [address] [place] [address] Endocrinology 10/24/21 Rogelio West RN [address] [place], [place] [address]16[address] Primary Care Urban Planner Internal Medicine 11/13/22 12/13/22 Materials Analyst Relationship Specialty Start Date End Date Eileen Monroe MD [address] [place] [address] PCP - General Internal Medicine 07/21/20 Mimi Tavares MD [address] [place] [address] Physician General Surgery 07/21/20 Nicho Verdin MD [address] [place], [place] [address] Consulting General Surgery 09/07/20 Miley Soni MD [address] [place], [place] [id number] Endocrinology 10/24/21 Rogelio West, ERIN [address] [place], [place] [id number] Primary Care [employer] Internal Medicine 11/13/22 12/13/22 Materials Analyst Relationship Specialty Start Date End Date Eileen Monroe MD [address] [place] [address] PCP - General Internal Medicine 07/21/20 Mimi Tavares MD [address] [place] [phone] Physician General Surgery 07/21/20 Nicho Verdin MD [address] [facility] [place] [address] Consulting General Surgery 09/07/20 Miley Soni MD [address] [place], [place] [id number] Endocrinology 10/24/21 Materials Analyst Relationship Specialty Start Date End Date Eileen Monroe MD [address] [place] [address] PCP - General Internal Medicine 07/21/20 Mimi Tavares MD [address] [place] [phone] Physician General Surgery 07/21/20 Nicho Verdin MD 1 [place] [address] Consulting General Surgery 09/07/20 Miley Soni MD [address] [place], [place] [id number] Endocrinology 10/24/21 Team Status: Active Member Role Status Dates EILEEN VOGEL Primary Care Provider Active Team Status: Inactive Member Role Status KITA Barakat Primary Care Provider Active Dr. Geo Robertson , Emergency Provider Active Team Status: Inactive Member Role Status KITA Barakat Primary Care Provider Active Dr. Geo Robertson , Attending Provider, Emergency Provider Active Team Status: Inactive Member Role Status KITA Barakat Primary Care Provider Active Dr. Shakeel Castro , Emergency Provider Active Materials Analyst Relationship Specialty Start Date End Date Eileen Monroe MD [address] [place] [address] PCP - General Internal Medicine 07/21/20 Mimi Tavares MD [address] [place] [phone] Physician General Surgery 07/21/20 Nicho Verdin MD 1 [facility] [address] Consulting General Surgery 09/07/20 Miley Soni MD [address] [place] [address] Endocrinology 10/24/21 Materials Analyst Relationship Specialty Start Date End Date Eileen Monroe MD [address] [place] [address] PCP - General Internal Medicine 07/21/20 Mimi Tavares MD [address] [facility] [place] [phone] Physician General Surgery 07/21/20 Nicho Verdin MD [address] [facility] [place] [phone] Consulting General Surgery 09/07/20 Miley Soni MD [address] [place] [address] Endocrinology 10/24/21 Materials Analyst Relationship Specialty Start Date End Date Eileen Monroe MD [address] [place] [address] PCP - General Internal Medicine 07/21/20 Mimi Tavares MD [address] [facility] [place] [phone] Physician General Surgery 07/21/20 Nicho Verdin MD [address] [facility] [place] [phone] Consulting General Surgery 09/07/20 Miley Soni MD [address] [place], [place] [id number] Endocrinology 10/24/21 Materials Analyst Relationship Specialty Start Date End Date Eileen Monroe MD [address] [place] [address] PCP - General Internal Medicine 07/21/20 Mimi Tavares MD [address] [facility] [place] [phone] Physician General Surgery 07/21/20 Nicho Verdin MD [address] [facility] [place], [place] [id number] Consulting General Surgery 09/07/20 Miley Soni MD [address] [place], [place] [id number] Endocrinology 10/24/21 Materials Analyst Relationship Specialty Start Date End Date Eileen Monroe MD [address] [place] [address] PCP - General Internal Medicine 07/21/20 Mimi Tavares MD [address] [facility] [phone] Physician General Surgery 07/21/20 Nicho Verdin MD 1 [place], [place] [id number] Consulting General Surgery 09/07/20 Miley Soni MD [address] [place], [place] [id number] Endocrinology 10/24/21 Materials Analyst Relationship Specialty Start Date End Date Eileen Monroe MD [address] [place] [address] PCP - General Internal Medicine 07/21/20 Mimi Tavares MD [address] [facility] [place] [phone] Physician General Surgery 07/21/20 Nicho Verdin MD 1 [place] [address] Consulting General Surgery 09/07/20 Miley Soni MD [address] [place], [place] [id number] Endocrinology 10/24/21 Materials Analyst Relationship Specialty Start Date End Date Eileen Monroe MD [address] [place] [address] PCP - General Internal Medicine 07/21/20 Mimi Tavares MD [address] [place] [phone] Physician General Surgery 07/21/20 Nicho Verdin MD 1 [place] [address] Consulting General Surgery 09/07/20 Miley Soni MD [address] [place], [place] [id number] Endocrinology 10/24/21 Team Status: Inactive Member Role Status Dates Dr. Radha Fierro MD Attending Provider Active Team Status: Inactive Member Role Status Dates KITA ARELLANO Primary Care Provider Active Dr. Shakeel Matthew , DO Attending Provider, Emergency P rojayceder Active Team Status: Inactive Member Role Status Dates Mohan De Jesus MD Attending Provider, Emergency Provid er Active KITA ARELLANO Primary Care Provider Active Team Status: Inactive Member Role Status Dates Dr. Shakeel Castro , DO Emergency Provider Active No Primary Care Physician Primary Care Provider Active Materials Analyst Relationship Specialty Start Date End Date Eileen Monroe MD [address] [place] [address] PCP - General Internal Medicine 07/21/20 Mimi Tavares MD [address] [place] [phone] Physician General Surgery 07/21/20 Nicho Verdin MD [address] [facility] [place], [place] [id number] Consulting General Surgery 09/07/20 Miley Soni MD [address] [place] [id number] Endocrinology 10/24/21 Materials Analyst Relationship Specialty Start Date End Date Eileen Monroe MD [address] [place] [address] PCP - General Internal Medicine 07/21/20 12/01/23 Mimi Tavares MD [address] [place] [phone] Physician General Surgery 07/21/20 Nicho Verdin MD 1 [place], [place] [id number] Consulting General Surgery 09/07/20 Miley Soni MD [address] [place], [place] [id number] Endocrinology 10/24/21 Materials Analyst Relationship Specialty Start Date End Date Lizett Chapman MD [address] [phone] PCP - General Internal Medicine 12/02/23 Mimi Tavares MD [address] [place] [phone] Physician General Surgery 07/21/20 Nicho Verdin MD 1 [place], [place] [id number] Consulting General Surgery 09/07/20 Miley Soni MD [address] [place] [address] Endocrinology 10/24/21 Materials Analyst Relationship Specialty Start Date End Date Lizett Chapman MD [address] [place] [address] PCP - General Internal Medicine 12/02/23 Mimi Tavares MD [address] [facility] [place] [address] Physician General Surgery 07/21/20 Nicho Verdin MD 1 [place], [place] [id number] Consulting General Surgery 09/07/20 Miley Soni MD [address] [place], [place] [id number] Endocrinology 10/24/21 Materials Analyst Relationship Specialty Start Date End Date Lizett Chapman MD [address] [id number] PCP - General Internal Medicine 12/02/23 Mimi Tavares MD [address] [facility] [place] [address] Physician General Surgery 07/21/20 Nicho Verdin MD 1 [place], [place] [phone] Consulting General Surgery 09/07/20 Miley Soni MD [address] [place], [place] [id number] Endocrinology 10/24/21 Materials Analyst Relationship Specialty Start Date End Date Lizett Chapman MD 1 [place] [id number] PCP - General Internal Medicine 12/02/23 Mimi Tavares MD [address] [facility] [place] [address] Physician General Surgery 07/21/20 Nicho Verdin MD 1 [place], [place] [id number] Consulting General Surgery 09/07/20 Miley Soni MD [address] [place], [place] [id number] Endocrinology 10/24/21 Materials Analyst Relationship Specialty Start Date End Date Lizett Chapman MD [address] [id number] PCP - General Internal Medicine 12/02/23 Mimi Tavares MD [address] [place] [phone] Physician General Surgery 07/21/20 Nicho Verdin MD 1 [place] [address] Consulting General Surgery 09/07/20 Miley Soni MD [address] [place], [place] [id number] Endocrinology 10/24/21 Materials Analyst Relationship Specialty Start Date End Date Lizett Chapman MD [address] [address] PCP - General Internal Medicine 12/02/23 Mimi Tavares MD [address] [place] [phone] Physician General Surgery 07/21/20 Nicho Verdin MD 1 [place] [address] Consulting General Surgery 09/07/20 Miley Soni MD [address] [place], [place] [id number] Endocrinology 10/24/21 Team Status: Inactive Member Role Status Dates No Primary Care Physician Primary Care Provider Active Start: January 04, 2025 End: January 04, 2025 Dr. Tyler Schwiger , DO Emergency Provider Active Start: January 04, 2025 End: January 04, 2025 Goals (unrecognized section and content) Goals may be documented in a n alternate sectionGoals may be documented in an alternate sectionGoals may be documented in an alternate sectionGoals may be documented in an alternate sectionGoals may be documented in an alternate sectionGoals may be documented in an alternate sectionGoals may be documented in an alternate sectionGoals may be documented in an alternate section FOR RECORDS PERTAINING TO PATIENTS WHO ARE OR HAVE BEEN ENROLLED IN A CHEMICAL DEPENDENCY/SUBSTANCEABUSE PROGRAM, SOME INFORMATION MAY BE OMITTED. This clinical summary was aggregated from multiple sources. Caution should be exercised in using it in the provision of clinical care. This summary normalizes information from multiple sources, and as a consequence, information in this document may materially change the coding, format and clinical context of patient data. In addition, data may be omitted in some cases. CLINICAL DECISIONS SHOULD BE BASED ON THE PRIMARY CLINICAL RECORDS. [facility] provides no warranty or guarantee of the accuracy or completeness of information in this document.
== END 2025-06-17 18:21 | disposition home or self-care (01) ==
PROVIDERS: Emergency Provider Emergency Medicine; Visit Provider Emergency Medicine
DX: M54.42 Lumbago with sciatica, left side (principal); F31.9 Bipolar disorder, unspecified; I10 Essential (primary) hypertension; K21.9 Gastro-esophageal reflux disease without esophagitis; D35.00 Benign neoplasm of unspecified adrenal gland; G43.909 Migraine, unspecified, not intractable, without status migrainosus; F90.9 Attention-deficit hyperactivity disorder, unspecified type; G89.29 Other chronic pain; G47.33 Obstructive sleep apnea (adult) (pediatric); Z79.899 Other long term (current) drug therapy; Z87.891 Personal history of nicotine dependence; Z86.718 Personal history of other venous thrombosis and embolism
CPT/HCPCS: 72100; 96372; 99282